=== PATIENT | female | born 1990 | race Caucasian/White ===

== ENCOUNTER 2022-11-24 09:11 | Outpatient (OUT) | payer OTHER, SELFPAY ==
[2022-11-24 10:02] LABS: HCG Quantitative <1 mIU/mL
== END 2022-11-24 09:12 | disposition home or self-care (01) ==
LOC: LAB 09:13
PROVIDERS: Visit Provider Obstetrics & Gynecology
DX: N92.6 Irregular menstruation, unspecified (principal)
CPT/HCPCS: 36415; 84702

== ENCOUNTER 2022-12-04 09:56 | Outpatient (OUT) | payer OTHER, SELFPAY ==
--- NOTE | 2022-12-04 10:10 | US_ITS ---
[address] [address] Patient Name: REBECCA BARRERA MRN: [id number] date: 1990 Sex: F Assigned Patient Location: US Current Patient Location: Accession/Order Number: [id number] Exam Date: 12/04/2022 10:12 Report Date: 12/05/2022 00:33 At the request of: DALLAS HERRERA Procedure: US pelvis w/ transvaginal EXAMINATION: US pelvis w/ transvaginal HISTORY: Infertility Counseling Z31.69 COMPARISON: Ultrasound pelvis 07/24/2018 TECHNIQUE: Transabdominal and/or transvaginal sonographic examination was performed as indicated by examination type. FINDINGS: UTERUS: Normal size and appearance. Uterus size: 7.7 x 3.6 x 4.9 cm ENDOMETRIUM: Normal homogeneous appearance. Endometrial thickness: 6 mm RIGHT OVARY: Contains several cysts versus prominent follicles, largest is 1.9 cm. Duplex Doppler demonstrates normal waveform and flow; resistive index 0.7. Ovary size: 5.0 x 2.9 x 4.5 cm LEFT OVARY: Contains several small follicles. Duplex Doppler demonstrates normal waveform and flow; resistive index 0.5. Ovary size: 4.0 x 2.8 x 3.2 cm CUL-DE-SAC: Unremarkable. No significant free fluid. BLADDER: Unremarkable. OTHER: None. US/US pelvis w/ transvaginal IMPRESSION: 1. Bilateral ovarian follicles. 2. Normal appearance of uterus, endometrium, and ovaries. Electronically authenticated by: HUA HAHN Date: 12/05/2022 00:33
== END 2022-12-04 09:57 | disposition home or self-care (01) ==
LOC: US 09:56
PROVIDERS: Visit Provider Obstetrics & Gynecology
DX: N83.01 Follicular cyst of right ovary (principal); Z31.69 Encounter for other general counseling and advice on procreation; N83.02 Follicular cyst of left ovary
CPT/HCPCS: 76830; 76856

== ENCOUNTER 2022-12-12 06:57 | Outpatient (RCR) | payer OTHER, SELFPAY ==
[2022-12-13 04:11] LABS: Progesterone 0.9 ng/mL (.)
[2022-12-16 04:07] LABS: Progesterone 0.1 ng/mL (.)
== END 2023-01-04 16:56 | disposition home or self-care (01) ==
LOC: LAB 06:57
PROVIDERS: Visit Provider Obstetrics & Gynecology
DX: Z31.69 Encounter for other general counseling and advice on procreation (principal)
CPT/HCPCS: 36415; 84144

== ENCOUNTER 2023-03-03 09:04 | Outpatient (OUT) | payer OTHER, SELFPAY ==
--- OUTSIDE RECORDS SUMMARY | 2023-03-03 09:08 | XMS_ITS | CCD ---
Author Name Unknown Address [address] [place] [address] Organization [facility] Care Team Providers Care Inside Outside Sales Representative Name Role Phone HARVINDER COLLINS Unavailable Unavailable HARVINDER COLLINS Unavailable Unavailable MISC, DOCTOR Unavailable Unavailable HARVINDER COLLINS Unavailable Unavailable SHARON, DR HAYNES Attending Unavailable BUTTERFIELD, DR EDIE Francois Primary Care Unavailable CANTON, DR KULWINDER Lin Consulting Unavailable SHARON, DR HAYNES Admitting Unavailable SHARON, DR HAYNES Consulting Unavailable KARASIK, DR ACUNA Admitting Unavailable BUTTERFIELD, DR EDIE Francois Primary Care Unavailable KARCHARISMAK, DR ACUNA Attending Unavailable SHARON, DR HAYNES Attending Unavailable BUTTERFIELD, DR EDIE Francois Primary Care Unavailable SHARON, DR HAYNES Admitting Unavailable SHARON, DR HAYNES Attending Unavailable BUTTERFIELD, DR EDIE Francois Primary Care Unavailable SHARON, DR HAYNES Admitting Unavailable SHARON, DR HAYNES Attending Unavailable BUTTERFIELD, DR EDIE Francois Primary Care Unavailable SHARON, DR HAYNES Admitting Unavailable SHARON, DR HAYNES Consulting Unavailable SHARON, DR HAYNES Attending Unavailable BUTTERFIELD, DR EDIE Francois Primary Care Unavailable CANTON, DR KULWINDER Lin Consulting Unavailable SHARON, DR HAYNES Admitting Unavailable SHARON, DR HAYNES Consulting Unavailable SHARON, DR HAYNES Consulting Unavailable SHARON, DR HAYNES Attending Unavailable SHARON, DR HAYNES Admitting Unavailable SCOUT, DR EDIE Francois Primary Care Unavailable SHARON, DR HAYNES Attending Unavailable SHARON, DR HAYNES Admitting Unavailable BUTTERFIELD, DR EDIE Francois Primary Care Unavailable CANTON, DR KULWINDER Lin Consulting Unavailable SHARON, DR HAYNES Consulting Unavailable SHARON, DR HAYNES Attending Unavailable BUTTERFIELD, DR EDIE Francois Primary Care Unavailable SHARON, DR HAYNES Admitting Unavailable SHARON, DR HAYNES Consulting Unavailable SHARON, DR HAYNES Attending Unavailable SHARON, DR HAYNES Admitting Unavailable BUTTERFIELD, EDIE E Primary Care Unavailable SHARON, DR HAYNES Consulting Unavailable SHARON, DR HAYNES Procedure Practitioner UnavailMARCK Michele Consulting Unavailable SHARON, DR HAYNES Attending Unavailable SHARON, DR HAYNES Admitting Unavailable DR EDIE BUTTERFIELD Primary Care Unavailable WEST, DR KULWINDER Lin Consulting Unavailable SHARON, DR HAYNES Consulting Unavailable Edie Butterfield Unavailable Medications Current Medications Medication Drug Class(es) Dates Sig (Normalized) Sig (Original) aspirin 81 mg delayed release oral tablet (2 sources) Platelet Aggregation Inhibitor, Nonsteroidal Anti-inflammatory Drug take 1 tablet by mouth every twenty-four hours Aspirin 81 MG 1 tablet Orally Once a day Active azithromycin 250 mg oral tablet (2 sources) Macrolide Antimicrobial Azithromycin 250 MG as directed Orally Active 24 hr metFORMIN hydrochloride 500 mg extended release oral tablet (2 sources) Biguanide take 1 tablet by mouth every twenty-four hours metFORMIN HCl ER 500 MG 1 tablet with evening meal Orally Once a day Active (2 sources) Active 24 hr venlafaxine 37.5 mg extended release oral capsule (2 sources) Serotonin and Norepinephrine Reuptake Inhibitor take 1 capsule by mouth every twenty-four hours Effexor XR 37.5 MG 1 capsule with food Orally Once a day for 90 days Active Completed/Discontinued Medications Medication Drug Class(es) Dates Sig (Normalized) Sig (Original) fexofenadine (2 sources) Histamine-1 Receptor Antagonist Radha Not-Taking fluticasone (2 sources) Corticosteroid Flonase Not-Taki ng letrozole 2.5 mg oral tablet (2 sources) Aromatase Inhibitor Letrozole 2.5 MG PLEASE SEE ATTACHED FOR DETAILED DIRECTIONS Oral for 90 Not-Taking medroxyPROGESTERone acetate 10 mg oral tablet (2 sources) Progestin medroxyPROGESTER one Acetate 10 MG TAKE 1 TABLET BY MOUTH DAILY UP TO 10 DAYS UNTIL THE START OF MONTHLY CYCLE Oral for 10 Not-Taking omeprazole 40 mg delayed release oral capsule (2 sources) Proton Pump Inhibitor take 1 capsule by mouth once daily Omeprazole 40 MG 1 capsule 30 minutes before morning meal Orally Once a day Not-Taking sertraline 50 mg oral tablet (2 sources) Serotonin Reuptake Inhibitor take 1 tablet by mouth once daily Sertraline HCl 50 MG 1 tablet Orally Once a day Not-Taking Problems Active Problems Problem Classification Problem Date Documented Da te Episodic/Chronic Chronic obstructive pulmonary disease and bronchiectasis (2 sources) Bronchitis; Translations: [Bronchitis, not specified as acute or chronic] Episodic Esophageal disorders (2 sources) Gastroesophageal reflux disease; Translations: [Gastro-esophageal reflux disease without esophagitis] Chronic Immunizations and screening for infectious disease (1 source) Encounter for screening for human papillomavirus (HPV); Translations: [ENC SCREENING HUMAN PAPILLOMAVIRUS] Onset: 3 Episodic Menstrual disorders (2 sources) Amenorrhea; Translations: [Secondary amenorrhea] Chronic Mood disorders (2 sources) Depressive disorder; Translations: [Depression] Chronic Other endocrine disorders (1 source) Polycystic ovarian syndrome; Translations: [POLYCYSTIC OVARIAN SYNDROME] Onset: 2 Chronic Other endocrine disorders (2 sources) Polycystic ovaries; Translations: [Polycystic ovarian syndrome] Chronic Other gastrointestinal disorders (2 sources) Irritable bowel syndrome with diarrhea; Translations: [Irritable bowel syndrome with diarrhea] Chronic Other non-traumatic joint disorders (1 source) Pain in right wrist Episodic Other non-traumatic joint disorders (1 source) Pain in left wrist Episodic Other nutritional; endocrine; and metabolic disorders (2 sources) Body mass index 40+ - severely obese; Translations: [Body mass index (BMI) 40.0-44.9, adult] Chronic Unclassified (20 sources) Encounter for screening for malignant neoplasm of cervix; Translations: [Encounter for screening for Streptococcus B] Onset: 8 Episodic Unclassified (1 source) PERSONAL HISTORY OF COVID-19; Translations: [PERSONAL HISTORY OF COVID-19] Onset: 2 Unclassified (1 source) CONTACT W/AND (SUSP) EXPOS COVID-19; Translations: [CONTACT W/AND (SUSP) EXPOS COVID-19] Onset: 2 Past or Other Problems Problem Classification Problem Date Documented Da te Episodic/Chronic Diabetes mellitus without complication (4 sources) Other abnormal glucose; Translations: [OTHER ABNORMAL GLUCOSE] Onset: 05-28-2021 Episodic Hemorrhage during ; abruptio placenta; placenta previa (1 source) Low lying placenta NOS or without hemorrhage, second trimester; Translations: [LOW LYING PL NOS W/O HEMORR 2ND TRI] Onset: 05-10-2021 Episodic Other complications of ; puerperium affecting management of mother (1 source) Failed medical induction of labor; Translations: [FAILED MEDICAL INDUCTION OF LABOR] Onset: 09-07-2021 Episodic Other complications of ; puerperium affecting management of mother (1 source) Endocrine, nutritional and metabolic diseases complicating childbirth; Translations: [ENDOCRN NUTR MET DZ COMP CHILDBIRTH] Onset: 09-07-2021 Episodic Other complications of (5 sources) Maternal care for excessive growth, third trimester, not applicable or unspecified; Translations: [MAT CARE EXCSS FTL GRTH 3RD TRI UNS] Onset: 07-30-2021 Episodic Other and delivery including normal (9 sources) Encounter for care and examination of lactating mother; Translations: [Encounter for routine follow-up] Onset: 08-30-2021 Episodic Prolonged (4 sources) Post-term ; Translations: [POST-TERM ] Onset: 08-21-2021 Episodic Residual codes; unclassified (1 source) 40 weeks gestation of ; Translations: [40 WEEKS GESTATION OF ] Onset: 09-07-2021 Episodic Residual codes; unclassified (1 source) 37 weeks gestation of ; Translations: [37 WEEKS GESTATION OF ] Onset: 08-03-2021 Episodic Residual codes; unclassified (1 source) 30 weeks gestation of ; Translations: [30 WEEKS GESTATION OF ] Onset: 06-10-2021 Episodic Residual codes; unclassified (1 source) 25 weeks gestation of ; Translations: [25 WEEKS GESTATION OF ] Onset: 05-10-2021 Episodic Results Test Name Value Interpretation Reference Range Facility PAP ACOG PANEL 2: 30 to 65on 03-03-2022 . . [facility] [place] [facility] Comment on above: Result Comment: Perf ormed at: WB Performed By: #### [id number] #### [facility] [address] [address] [address] Roc Coulter Age Gdln ACOG Testing [facility] [place] [facility] Comment on above: Performed By: #### [id number] #### [facility] [address] [address] [address] Roc Coulter DIAGNOSIS: Comment [facility] [place] [facility] Comment on above: Result Comment: NEGA TIVE FOR INTRAEPITHELIAL LESION OR MALIGNANCY. Performed at: WB Performed By: #### [id number] #### [facility] [address] [place] [address] Dr. Roc Coulter HPV Aptima Negative Normal Negative [facility] Comment on above: Result Comment: This nucleic acid amplification test detects fourteen high-risk HPV types (16,18,31,33,35,39,45,51,52,56,58,59,66,68) without differentiation. Performed at: =G Performed By: #### [id number] #### [facility] [address] [place] [address] Dr. Roc Coulter HPV Genotype Reflex Comment Normal [facility] Comment on above: Result Comment: Crit eria not met, HPV Genotype not performed. Performed at: WB Performed By: #### [id number] #### [facility] [address] [place] [address] Dr. Roc Coulter Methodology: Comment Normal [facility] Comment on above: Result Comment: This liquid based ThinPrep(R) pap test was screened with the use of an image guided system. Performed at: WB Performed By: #### [id number] #### [facility] [address] [place] [address] Dr. Roc Coulter Note: Comment Normal [facility] Comment on above: Result Comment: The Pap smear is a screening test designed to aid in the detection of premalignant and malignant conditions of the uterine cervix. It is not a diagnostic procedure and should not be used as the sole means of detecting cervical cancer. Both false-positive and false-negative reports do occur. . Performed at: WB Performed By: #### [id number] #### [facility] [address] [place] [address] Dr. Roc Coulter Performed by: Comment Normal [facility] Comment on above: Result Comment: Lina Quach, Performance Improvement Specialist (ASCP) Performed at: WB Performed By: #### [id number] #### [facility] [address] [place] [address] Dr. Roc Coulter Specimen adequacy: Comment Normal [facility] Comment on above: Result Comment: Sati sfactory for evaluation. Endocervical and/or squamous metaplastic cells (endocervical component) are present. Performed at: WB Performed By: #### [id number] #### [facility] [address] [place] [address] Dr. Roc Coulter CBC AUTO DIFFon 08-24-2021 BASO # 0.0 103/ul Normal 0.0-0.1 [facility] Comment on above: Performed By: #### C BC #### [facility] [address] [place] [address] Dr. Roc Coulter Basophils/100 WBC (Bld) 0.3 % Normal 0.2-2.0 [facility] Comment on above: Performed By: #### C BC #### [facility] [address] [place] [address] Dr. Roc Coulter EO # 0.1 103/ul Normal 0.0-0.7 [facility] Comment on above: Performed By: #### C BC #### [facility] [address] [place] [address] Dr. Roc Coulter Eosinophils/100 WBC (Bld) 1.0 % Normal 0.9-7.0 [facility] Comment on above: Performed By: #### C BC #### [facility] [address] [place] [address] Dr. Roc Coulter Erythrocyte distribution width (RBC) [Ratio] 16.6 % Critically high 11.0-15.0 [facility] Comment on above: Performed By: #### C BC #### [facility] [address] [place] [address] Dr. Roc Coulter Hematocrit (Bld) [Volume fraction] 30.2 % Critically low 36.0-48.0 [facility] Comment on above: Performed By: #### C BC #### [facility] [address] [place] [address] Dr. Roc Coulter Hemoglobin (Bld) [Mass/Vol] 9.6 g/dL Critically low 12.0-16.0 [facility] Comment on above: Performed By: #### C BC #### [facility] [address] [place] [address] Dr. Roc Coulter IG # 0.10 10e3/ul Critically high 0.00-0.03 [facility] Comment on above: Performed By: #### C BC #### [facility] [address] [place] [address] Dr. Roc Coulter IG % 0.7 % Critically high 0.0-0.5 [facility] Comment on above: Performed By: #### C BC #### [facility] [address] [place] [address] Dr. Roc Coulter LYMPH # 2.5 103/ul Normal 1.2-3.8 [facility] Comment on above: Performed By: #### C BC #### [facility] [address] [place] [address] Dr. Roc Coulter Lymphocytes/100 WBC (Bld) 18.6 % Critically low 20.5-60.0 [facility] Comment on above: Performed By: #### C BC #### [facility] [address] [place] [address] Dr. Roc oCulter MANUAL DIFF REQ NO Normal [facility] Comment on above: Performed By: #### C BC #### [facility] [address] [place] [address] Dr. Roc Coulter MCH (RBC) [Entitic mass] 27.9 pg Normal 26.7-34.0 [facility] Comment on above: Performed By: #### C BC #### [facility] [address] [place] [address] Dr. Roc Coulter MCHC (RBC) [Mass/Vol] 31.8 g/dL Normal 29.9-35.2 [facility] Comment on above: Performed By: #### C BC #### [facility] [address] [place] [address] Dr. Roc Coulter MCV (RBC) [Entitic vol] 87.8 fL Normal 81.0-99.0 [facility] Comment on above: Performed By: #### C BC #### [facility] [address] [place] [address] Dr. Roc Coulter MONO # 0.9 103/ul Critically high 0.3-0.8 [facility] Comment on above: Performed By: #### C BC #### [facility] [address] [address] [address] Roc Coulter Monocytes/100 WBC (Bld) 6.7 % Normal 1.7-12.0 [facility] Comment on above: Performed By: #### C BC #### [facility] [address] [address] [address] Roc Coulter NEUT # 9.8 103/ul Critically high 1.4-6.5 [facility] Comment on above: Performed By: #### C BC #### [facility] [address] [place] [address] Dr. Roc Coulter Neutrophils/100 WBC (Bld) 72.7 % Normal 43.0-75.0 [facility] Comment on above: Performed By: #### C BC #### [facility] [address] [place] [address] Dr. Roc Coulter Platelet mean volume (Bld) [Entitic vol] 10.4 fL Normal 9.5-13.5 [facility] Comment on above: Performed By: #### C BC #### [facility] [address] [place] [address] Dr. Roc Coulter PLT 228 103/ul Normal 150-450 [facility] Comment on above: Performed By: #### C BC #### [facility] [address] [place] [address] Dr. Roc Coulter RBC 3.44 106/ul Critically low 4.20-5.40 [facility] Comment on above: Performed By: #### C BC #### [facility] [address] [place] [address] Dr. Roc Coulter WBC 13.4 103/ul Critically high 4.0-11.0 [facility] Comment on above: Performed By: #### C BC #### [facility] [address] [place] [address] Dr. Roc Coulter CBC AUTO DIFFon 08-21-2021 BASO # 0.0 103/ul Normal 0.0-0.1 [facility] Comment on above: Performed By: #### C BC ####[facility] [address] [address]Dr. Roc Coulter Basophils/100 WBC (Bld) 0.5 % Normal 0.2-2.0 [facility] Comment on above: Performed By: #### C BC ####[facility] [address] [address]Dr. Roc Coulter EO # 0.1 103/ul Normal 0.0-0.7 [facility] Comment on above: Performed By: #### C BC ####[facility] [address] [place], [place] [address]Dr. Roc Yfn Eosinophils/100 WBC (Bld) 1.1 % Normal 0.9-7.0 [facility] Comment on above: Performed By: #### C BC ####[facility] [address] [place], [place] [address]Dr. Roc Yfn Erythrocyte distribution width (RBC) [Ratio] 16.1 % Critically high 11.0-15.0 [facility] Comment on above: Performed By: #### C BC ####[facility] [address] [place], [place] [address]Dr. Roc Coulter Hematocrit (Bld) [Volume fraction] 36.0 % Normal 36.0-48.0 [facility] Comment on above: Performed By: #### C BC ####[facility] [address] [place], [place] [address]Dr. Roc Coulter Hemoglobin (Bld) [Mass/Vol] 11.7 g/dL Critically low 12.0-16.0 [facility] Comment on above: Performed By: #### C BC ####[facility] [address] [place], [place] [address]Dr. Octaviaflorence Coulter IG # 0.08 10e3/ul Critically high 0.00-0.03 [facility] Comment on above: Performed By: #### C BC ####[facility] [address] [place], [place] [address]Dr. Roc Coulter IG % 0.9 % Critically high 0.0-0.5 [facility] Comment on above: Performed By: #### C BC ####[facility] [address] [address]Dr. Roc Yfn LYMPH # 1.8 103/ul Normal 1.2-3.8 [facility] Comment on above: Performed By: #### C BC ####[facility] [address] [address]Dr. Roc Yfn Lymphocytes/100 WBC (Bld) 20.8 % Normal 20.5-60.0 [facility] Comment on above: Performed By: #### C BC ####[facility] [address] [address]Dr. Octaviaflorence Coulter MANUAL DIFF REQ NO Normal [facility] Comment on above: Performed By: #### C BC ####[facility] [address] [place], [place] [address]Dr. Roc Yfn MCH (RBC) [Entitic mass] 28.0 pg Normal 26.7-34.0 [facility] Comment on above: Performed By: #### C BC ####[facility] [address] [place], [place] [address]Dr. Roc Yfn MCHC (RBC) [Mass/Vol] 32.5 g/dL Normal 29.9-35.2 [facility] Comment on above: Performed By: #### C BC ####[facility] [address] [place], [place] [address]Dr. Roc Coulter MCV (RBC) [Entitic vol] 86.1 fL Normal 81.0-99.0 [facility] Comment on above: Performed By: #### C BC ####[facility] [address] [place], [place] [address]Dr. Roc Coulter MONO # 0.8 103/ul Normal 0.3-0.8 [facility] Comment on above: Performed By: #### C BC ####[facility] [address] [place], [place] [address]Dr. Roc Coulter Monocytes/100 WBC (Bld) 9.6 % Normal 1.7-12.0 [facility] Comment on above: Performed By: #### C BC ####[facility] [address] [address]Dr. Roc Coulter NEUT # 5.9 103/ul Normal 1.4-6.5 [facility] Comment on above: Performed By: #### C BC ####[facility] [address] [id number]. Roc Coulter Neutrophils/100 WBC (Bld) 67.1 % Normal 43.0-75.0 [facility] Comment on above: Performed By: #### C BC ####[facility] [address] [address]Dr. Roc Coulter Platelet mean volume (Bld) [Entitic vol] 10.6 fL Normal 9.5-13.5 [facility] Comment on above: Performed By: #### C BC ####[facility] [address] [id number] Roc Coulter PLT 235 103/ul Normal 150-450 [facility] Comment on above: Performed By: #### C BC ####[facility] [address] [id number]. Roc Coulter RBC 4.18 106/ul Critically low 4.20-5.40 [facility] Comment on above: Performed By: #### C BC ####[facility] [address] [place], [place] [address]Dr. Roc Coulter WBC 8.8 103/ul Normal 4.0-11.0 [facility] Comment on above: Performed By: #### C BC ####[facility] [address] [id number] Roc Coulter Covid-19 PCR ([facility])on 08-05 SARS-CoV-2 (COVID-19) RNA NIMA+probe Ql (Unsp spec) Not detected Normal NOT DETECTED [facility] Comment on above: Result Comment: When diagnostic testing is negative, the possibility of a false negative should be considered in the context of a patient's recent exposures and the presence of clinical signs and symptoms consistent with SARS-CoV-2. This test is not yet approved or cleared by the [place] FDA. When there are no FDA-approved or cleared tests available, and other criteria are met, FDA can make tests available under an emergency access mechanism called an Emergency Use Authorization (EUA). The EUA for this test is supported by the [place] of Health and Human Service's declaration that circumstances exist to justify the emergency use of in vitro diagnostics for the detection and/or diagnosis of the virus that causes COVID-19. This EUA will remain in effect for the duration of the COVID-19 declaration justifying emergency of IVDs, unless it is terminated or revoked by the FDA (after which the test may no longer be used). Performed By: #### C VDTBH #### [facility] [address] [place] [address] Dr. Roc Coulter DRUG SCREEN RAPID (URINE)on 08-21-2021 AMP Negative Normal NEGATIVE [facility] Comment on above: Performed By: #### D RUGRPD #### [facility] [address] [place] [address] Dr. Roc Coulter BAR Negative Normal NEGATIVE [facility] Comment on above: Performed By: #### D RUGRPD #### [facility] [address] [place] [address] Dr. Roc Coulter BUP Negative Normal NEGATIVE [facility] Comment on above: Performed By: #### D RUGRPD #### [facility] [address] [place] [address] Dr. Roc Coulter BZO Negative Normal NEGATIVE [facility] Comment on above: Performed By: #### D RUGRPD #### [facility] [address] [place] [address] Dr. Roc Coulter SHAYY Negative Normal NEGATIVE [facility] Comment on above: Performed By: #### D RUGRPD #### [facility] [address] [place] [address] Dr. Roc Coulter CUT-OFFS SEE BELOW Normal [facility] Comment on above: Result Comment: AMP (Amphetamine): 500ng/mL, BAR (Barbituates): 200 ng/mL, BZO (Benzodiazepines): 150 ng/mL, BUP (Buprenorphine): 10 ng/mL, SHAYY (Cocaine): 150 ng/mL, mAMP (Methamphetamine): 500 ng/mL, MTD (Methadone): 200 ng/mL, OPI (Opiates): 100 ng/mL, OXY (Oxycodone): 100 ng/mL, PCP (Phencyclidine): 25 ng/mL, PPX (Propoxyphene): 300 ng/mL, THC (Cannabinoids): 50 ng/mL, TCA (Trycyclic Antidepressants): 300 ng/mL Performed By: #### D RUGRPD #### [facility] [address] [place] [address] Dr. Roc Coulter DRUG CUT HEADER DRUG CLASS TEST SYST EM CUT-OFF CONCENTRATIONS ARE FOLLOWS: Normal [facility] Comment on above: Performed By: #### D RUGRPD #### [facility] [address] [place] [address] Dr. Roc Coulter mAMP Negative Normal NEGATIVE [facility] Comment on above: Performed By: #### D RUGRPD #### [facility] [address] [place] [address] Dr. Roc Coulter MTD Negative Normal NEGATIVE [facility] Comment on above: Performed By: #### D RUGRPD #### [facility] [address] [place] [address] Dr. Roc Coulter OPI Negative Normal NEGATIVE [facility] Comment on above: Performed By: #### D RUGRPD #### [facility] [address] [place] [address] Dr. Roc Coulter OXY Negative Normal NEGATIVE [facility] Comment on above: Performed By: #### D RUGRPD #### [facility] [address] [place] [address] Dr. Roc Coulter PCP Negative Normal NEGATIVE [facility] Comment on above: Performed By: #### D RUGRPD #### [facility] [address] [place] [address] Dr. Roc Cuolter PPX Negative Normal NEGATIVE [facility] Comment on above: Performed By: #### D RUGRPD #### [facility] [address] [place], [place] [address] Dr. Roc Coulter TCA Negative Normal NEGATIVE [facility] Comment on above: Performed By: #### D RUGRPD #### [facility] [address] [place], [place] [address] Dr. Roc Coulter THC Negative Normal NEGATIVE [facility] Comment on above: Performed By: #### D RUGRPD #### [facility] [address] [place], [place] [address] Dr. Roc Coulter TYPE AND SCREENon 08-21-2021 TYPE AND SCREEN Negative Normal [facility] Comment on above: Performed By: #### T NS ####[facility] [address] [place], [place] [address]UdDr. Roc Coulter US PREG BIOPHY W NON STRESSo n 08-19-2021 US PREG BIOPHY W NON STRESS EXAMINATION: US PREG BIOPHY W NON STRESS HISTORY: Post-term COMPARISON: No relevant comparison available. TECHNIQUE: Ultrasound biophysical profile was performed in the radiology department. non-reactive stress testing was performed by nursing staff in the birthing center. FINDINGS: BREATHING MOVEMENTS: 2.0 GROSS BODY MOVEMENTS: 2.0 TONE: 2.0 QUALITATIVE AMNIOTIC FLUID VOLUME: 2.0 PRESENTATION: Cephalic HEART RATE: 164.6 bpm H.B./min AMNIOTIC FLUID VOLUME: 12.5 cm cm GESTATIONAL AGE: 40 weeks 1 days CONCLUSION: Total biophysical profile score: 8.0 Electronically authenticated by: KULWINDER VENEGAS Date: 2021-08-19 16:43 Normal [facility] US PREG GROWTHon 08-01-2021 US PREG GROWTH EXAMINATION: US PREG GROWTH HISTORY: Large for gestation age fetus COMPARISON: No relevant comparison available. FINDINGS: Heart Rate: 148.4 bpm Amniotic Fluid Volume: 20.6 cm Number: 1.0 Position: Cephalic presentation, longitudinal lie Maximum Vertical Pocket: 6.3 cm cm 5.5 cm cm 3.3 cm cm 5.5 cm cm BIOMETRY: BPD: 9.3 cm cm; 37 weeks 4 days; 76% HC: 33.5 cmcm; 38 weeks 3 days, 53% AC: 35.1 cm cm; 39 weeks 0 days, 96% FL: 6.9 cm cm; 35 weeks 5 days; 13.0 % % EFW: 3379.7 grams, 7 lbs. 7 oz., 77% FL/AC: 19.8 FL/BPD: 75.1 HC/AC: 1.0 GESTATIONAL AGE: Age by EDC: 37 weeks 2 days LAOL by EDC: 08/18/2021 Age by US: 37 weeks 5 days LALO by US: 08/15/2021 IMPRESSION: Abdominal circumference at the 96th percentile, otherwise normal interval growth Electronically authenticated by: KULWINDER VENEGAS Date: 2021-08-01 07:24 Normal [facility] GROUP B STREP CULTUREon 07-07 S. agalactiae Ag Ql (Unsp spec) Culture Observations: NEGATIVE FOR GROUP B STREPTOCOCCUS. Normal [facility] Comment on above: Performed By: #### G BSCX ####[facility] [address] [place], [place] [address]PjWendy Coulter US PREG GROWTHon 06-09-2021 US PREG GROWTH EXAMINATION: US PREG GROWTH HISTORY: Excessive growth affecting management of mother COMPARISON: No relevant comparison available. FINDINGS: Heart Rate: 153.0 bpm Amniotic Fluid Volume: 19.1 cm Number: 1.0 Position: Cephalic presentation, longitudinal lie Maximum Vertical Pocket: 4.8 cm cm 5.0 cm cm 4.6 cm cm 4.8 cm cm BIOMETRY: BPD: 7.5 cm cm; 30 weeks 1 days; 40% HC: 27.7 cmcm; 30 weeks 2 days, 22% AC: 25.4 cm cm; 29 weeks 4 days, 32% FL: 5.8 cm cm; 30 weeks 3 days; 46.0 % % EFW: 1483.1 grams, 3 lbs. 4 oz., 35% FL/AC: 22.9 FL/BPD: 77.5 HC/AC: 1.1 GESTATIONAL AGE: Age by EDC: 30 weeks 0 days LALO by EDC: 08/18/2021 Age by US: 30 weeks 1 day LALO by US: 08/17/2021 IMPRESSION: Normal interval growth Electronically authenticated by: KULWINDER VENEGAS Date: 2021-06-09 16:45 Normal [facility] US PREG INCOMPLETE ANATOMYon 06-09-2021 US PREG INCOMPLETE ANATOMY EXAMINATION: US PREG INCOMPLETE ANATOMY HISTORY: screening COMPARISON: 05/06/2021 FINDINGS: Normal visualized anatomy: RVOT, LVOT, kidneys, spine, orbits Amniotic fluid index: 19.1 cm, normal Heart rate: 153 bpm IMPRESSION: Normal observed anatomy Electronically authenticated by: KULWINDER VENEGAS Date: 2021-06-09 16:46 Normal [facility] GTT 3 HR PREGon 05-28-2021 Glucose [Mass/Vol] 83 mg/dL Normal 74-106 [facility] Comment on above: Performed By: #### G TT3P #### [facility] [address] [place] [address] Dr. Roc Coulter Glucose [Mass/Vol] 176 mg/dL Normal [facility] Comment on above: Performed By: #### G TT3P #### [facility] [address] [place] [address] Dr. Roc Coulter Glucose [Mass/Vol] 125 mg/dL Normal [facility] Comment on above: Performed By: #### G TT3P #### [facility] [address] [place] [address] Dr. Roc Coulter Glucose [Mass/Vol] 97 mg/dL Normal [facility] Comment on above: Performed By: #### G TT3P #### [facility] [address] [place] [address] Dr. Roc Coulter GLUCOSE - 1HRon 05-06-2021 Glucose [Mass/Vol] 173 mg/dL Critically high 74-106 [facility] Comment on above: Performed By: #### G LU1HR #### [facility] [address] [place] [address] Dr. Roc Coulter HEMOGRAM AND PLATELon 2021 Hematocrit (Bld) [Volume fraction] 34.5 % Critically low 36.0-48.0 [facility] Comment on above: Performed By: #### H H #### [facility] [address] [place] [address] Dr. Roc Coulter Hemoglobin (Bld) [Mass/Vol] 10.8 g/dL Critically low 12.0-16.0 [facility] Comment on above: Performed By: #### H H #### [facility] [address] [place] [address] [address] Roc Coulter MCH (RBC) [Entitic mass] 27.9 pg Normal 26.7-34.0 [facility] Comment on above: Performed By: #### H H #### [facility] [address] [place] [address] [address] Roc Coulter MCHC (RBC) [Mass/Vol] 31.3 g/dL Normal 29.9-35.2 [facility] Comment on above: Performed By: #### H H #### [facility] [address] [place] [address] [address] Roc Coulter MCV (RBC) [Entitic vol] 89.1 fL Normal 81.0-99.0 [facility] Comment on above: Performed By: #### H H #### [facility] [address] [place] [address] Dr. Roc Coulter PLT 298 103/ul Normal 150-450 [facility] Comment on above: Performed By: #### H H #### [facility] [address] [place] [address] [address] Roc Coulter RBC 3.87 106/ul Critically low 4.20-5.40 [facility] Comment on above: Performed By: #### H H #### [facility] [address] [place] [address] [address] Roc Coulter WBC 8.1 103/ul Normal 4.0-11.0 [facility] Comment on above: Performed By: #### H H #### [facility] [address] [place] [address] Dr. Roc Coulter US PREG ANATOMY SINGLEon US PREG ANATOMY SINGLE EXAMINATION: US PREG ANATOMY SINGLE HISTORY: anatomy study COMPARISON: No relevant comparison available. TECHNIQUE: Transabdominal sonographic examination was performed for obstetrical and evaluation. FINDINGS: Number: 1 Heart Rate: 163.6 bpm H.B. /min Amniotic Fluid Volume: Subjectively low Placental Location: Anterior, grade 1. Placental edge 1.7 cm from the cervical os. Areas of anechoic echogenicity, placental lakes favored. Cervix Length: 5.9 cm, closed Normal structures: Cerebellum. Choroid plexus. Cisterna magna. Lateral cerebral ventricles. Midline falx. Hard palate. 4-chamber heart. Stomach. Bladder. Umbilical cord insertion into abdomen. 3 vessel cord. Right upper extremity. Left upper extremity. Right lower extremity. Left lower extremity. Suboptimally seen: Orbits, RVOT, LVOT, kidneys, spine. Abnormalities/Other: None BIOMETRY: BPD: 6.1 cm 24 weeks 6 days , 30% HC: 23.2 cm 25 weeks 2 days, 32% AC: 21.4 cm 26 weeks 0 days, 67% FL: 4.5 cm 24 weeks 5 days, 26% EFW:805.5 grams; 1 lb. 12 oz., 51% FL/AC: 20.9 FL/BPD: 73.4 HC/AC: 1.1 GESTATIONAL AGE: Age by EDC: 25 weeks 1 days LALO by EDC: 08/18/2021 Age by current US: 25 weeks 2 days LALO by current US: 08/17/2021 IMPRESSION: Limited visualization is detailed above Subjectively low amniotic fluid volume, consider amniotic fluid index follow-up for quantitative measurements Low lying placenta *Reference: [employer] Practice Guideline for the performance of Obstetric Ultrasound Examinations, November 05, 2006. Electronically authenticated by: KULWINDER VENEGAS Date: 2021-05-06 16:06 Normal [facility] Pap, GC/Chlam rfx HPV HRon 0 02-11-2021 PAP Chlamydia NIMA Negative Normal Negative [facility] Comment on above: Order Comment: Reaso n for Exam Cervical cancer screening;Encntr screen for infections w sex Comment cx/ecc, - run gc/chlam on pap Specimen Comment: [id number] Performed By: #### P ILLAR LIPID, PILLAR CMP, PILLAR CBC, PILLAR TSH #### [facility] [address] PAP Gonococcus Negative Normal Negative [facility] Comment on above: Order Comment: Reaso n for Exam Cervical cancer screening;Encntr screen for infections w sex Comment cx/ecc, - run gc/chlam on pap Specimen Comment: [id number] Result Comment: Perf ormed at: [facility] [address], [place] [id number] Acid Purifier: Anaid Hercules MD, Phone: [phone] Performed at: =[facility] [address] [facility], [place] [id number] Acid Purifier: Anaid Hercules MD, Phone: [phone] PERFORMED BY: [facility] [address] [place] [address] PATHOLOGIST PRESSURE TESTER OPERATOR KELLY WIGGINS M.D. Performed By: #### P ILLAR LIPID, PILLAR CMP, PILLAR CBC, PILLAR TSH #### [facility] [address] Pap Image Guided Note Normal . [facility] Comment on above: Order Comment: Reaso n for Exam Cervical cancer screening;Encntr screen for infections w sex Comment cx/ecc, - run gc/chlam on pap Specimen Comment: [id number] Result Comment: TEST S RESULT FLAG UNITS REF RANGE LAB Clinician Provided Cytology Information No. of containers..01 ThinPrep Vial DIAGNOSIS: 01 NEGATIVE FOR INTRAEPITHELIAL LESION OR MALIGNANCY. Specimen adequacy: 01 Satisfactory for evaluation. Endocervical and/or squamous metaplastic cells (endocervical component) are present. Performed by: 01 Ej Blunt, Performance Improvement Specialist (ASCP) . 01 Note: Note 01 The Pap smear is a screening test designed to aid in the detection of premalignant and malignant conditions of the uterine cervix. It is not a diagnostic procedure and should not be used as the sole means of detecting cervical cancer. Both false-positive and false-negative reports do occur. Test Methodology: Note 01 This liquid based ThinPrep(R) pap test was screened with the use of an image guided system. . 01 The HPV DNA reflex criteria were not met with this specimen result therefore, no HPV testing was performed. FLAG LEGEND: L-Low Normal,H-High Normal,LL-Alert Low,HH-Alert High <-Panic Low,>-Panic High,A-Abnormal,AA-Critical Abnormal Performed at: 01 WB [facility] [address] [place] [address] Anaid Hercules MD, Performed By: #### P ILLAR LIPID, PILLAR CMP, PILLAR CBC, PILLAR TSH #### [address] Complete Blood Count Auto Di ffon 01-06-2021 Basophils (Bld) [#/Vol] 0.1 10*3/uL Normal 0.0-0.2 [facility] Comment on above: Order Comment: Reaso n for Exam Encounter for supervision of normal first , first t Result Comment: PERF ORMED BY: [place] [address] PATHOLOGIST PRESSURE TESTER OPERATOR KELLY WIGGINS M.D. Performed By: #### H IV SCREEN, RPR W RFX, PROG, HBSAG, RUBELLA IGG #### [facility] , #### CUU, CBC #### [place] [address] [place] Basophils/100 WBC (Bld) 0.8 % Normal . [facility] Comment on above: Order Comment: Reaso n for Exam Encounter for supervision of normal first , first t Performed By: #### H IV SCREEN, RPR W RFX, PROG, HBSAG, RUBELLA IGG #### [facility] , #### CUU, CBC #### [facility] [address] [place] [address] [place] Eosinophils (Bld) [#/Vol] 0.2 10*3/uL Normal 0.0-0.45 [facility] Comment on above: Order Comment: Reaso n for Exam Encounter for supervision of normal first , first t Performed By: #### H IV SCREEN, RPR W RFX, PROG, HBSAG, RUBELLA IGG #### [facility] , #### CUU, CBC #### [place] [address] [place] Eosinophils/100 WBC (Bld) 1.7 % Normal . [facility] Comment on above: Order Comment: Reaso n for Exam Encounter for supervision of normal first , first t Performed By: #### H IV SCREEN, RPR W RFX, PROG, HBSAG, RUBELLA IGG #### [facility] , #### CUU, CBC #### [address] Erythrocyte distribution width (RBC) [Ratio] 14.1 % Normal 11.9-15.3 [facility] Comment on above: Order Comment: Reaso n for Exam Encounter for supervision of normal first , first t Performed By: #### H IV SCREEN, RPR W RFX, PROG, HBSAG, RUBELLA IGG #### [facility] , #### CUU, CBC #### [address] Hematocrit (Bld) [Volume fraction] 39.3 % Normal 34.0-46.4 [facility] Comment on above: Order Comment: Reaso n for Exam Encounter for supervision of normal first , first t Performed By: #### H IV SCREEN, RPR W RFX, PROG, HBSAG, RUBELLA IGG #### [facility] , #### CUU, CBC #### [facility] [address] [place] [address] Hemoglobin (Bld) [Mass/Vol] 13.2 g/dL Normal 11.8-15.4 [facility] Comment on above: Order Comment: Reaso n for Exam Encounter for supervision of normal first , first t Performed By: #### H IV SCREEN, RPR W RFX, PROG, HBSAG, RUBELLA IGG #### [facility] , #### CUU, CBC #### [address] Lymphocytes (Bld) [#/Vol] 2.6 10*3/uL Normal 1.00-4.8 [facility] Comment on above: Order Comment: Reaso n for Exam Encounter for supervision of normal first , first t Performed By: #### H IV SCREEN, RPR W RFX, PROG, HBSAG, RUBELLA IGG #### [facility] , #### CUU, CBC #### [address] Lymphocytes/100 WBC (Bld) 26.0 % Normal . [facility] Comment on above: Order Comment: Reaso n for Exam Encounter for supervision of normal first , first t Performed By: #### H IV SCREEN, RPR W RFX, PROG, HBSAG, RUBELLA IGG #### [facility] , #### CUU, CBC #### [address] MCH (RBC) [Entitic mass] 29.2 pg Normal 24.7-34.3 [facility] Comment on above: Order Comment: Reaso n for Exam Encounter for supervision of normal first , first t Performed By: #### H IV SCREEN, RPR W RFX, PROG, HBSAG, RUBELLA IGG #### [facility] , #### CUU, CBC #### [address] MCV (RBC) [Entitic vol] 86.9 fL Normal 80-100 [facility] Comment on above: Order Comment: Reaso n for Exam Encounter for supervision of normal first , first t Performed By: #### H IV SCREEN, RPR W RFX, PROG, HBSAG, RUBELLA IGG #### [facility] , #### CUU, CBC #### [address] Mean Corpuscular HGB Conc 33.6 g/dL Normal 32.0-35.0 [facility] Comment on above: Order Comment: Reaso n for Exam Encounter for supervision of normal first , first t Performed By: #### H IV SCREEN, RPR W RFX, PROG, HBSAG, RUBELLA IGG #### [facility] , #### CUU, CBC #### [address] Monocytes (Bld) [#/Vol] 0.6 10*3/uL Normal 0.0-0.8 [facility] Comment on above: Order Comment: Reaso n for Exam Encounter for supervision of normal first , first t Performed By: #### H IV SCREEN, RPR W RFX, PROG, HBSAG, RUBELLA IGG #### [facility] , #### CUU, CBC #### [address] Monocytes/100 WBC (Bld) 6.0 % Normal . [facility] Comment on above: Order Comment: Reaso n for Exam Encounter for supervision of normal first , first t Performed By: #### H IV SCREEN, RPR W RFX, PROG, HBSAG, RUBELLA IGG #### [facility] , #### CUU, CBC #### [place] [address] [place] Neutrophils (Bld) [#/Vol] 6.6 10*3/uL Normal 1.8-7.7 [facility] Comment on above: Order Comment: Reaso n for Exam Encounter for supervision of normal first , first t Performed By: #### H IV SCREEN, RPR W RFX, PROG, HBSAG, RUBELLA IGG #### [facility] , #### CUU, CBC #### [place] [id number] [place] Neutrophils/100 WBC (Bld) 65.5 % Normal . [facility] Comment on above: Order Comment: Reaso n for Exam Encounter for supervision of normal first , first t Performed By: #### H IV SCREEN, RPR W RFX, PROG, HBSAG, RUBELLA IGG #### [facility] , #### CUU, CBC #### [facility] [address] [place] [address] [place] Nucleated RBC/100 WBC (Bld) [Ratio] 0.1 % Normal 0-0.5 [facility] Comment on above: Order Comment: Reaso n for Exam Encounter for supervision of normal first , first t Performed By: #### H IV SCREEN, RPR W RFX, PROG, HBSAG, RUBELLA IGG #### [facility] , #### CUU, CBC #### [address] Platelet mean volume (Bld) [Entitic vol] 8.1 fL Normal 6.3-10.7 [facility] Comment on above: Order Comment: Reaso n for Exam Encounter for supervision of normal first , first t Performed By: #### H IV SCREEN, RPR W RFX, PROG, HBSAG, RUBELLA IGG #### [facility] , #### CUU, CBC #### [place] [address] [place] Platelets (Bld) [#/Vol] 325 10*3/uL Normal 150-450 [facility] Comment on above: Order Comment: Reaso n for Exam Encounter for supervision of normal first , first t Performed By: #### H IV SCREEN, RPR W RFX, PROG, HBSAG, RUBELLA IGG #### [facility] , #### CUU, CBC #### [place] [address] [place] RBC (Bld) [#/Vol] 4.52 10*6/uL Normal 3.60-5.00 [facility] Comment on above: Order Comment: Reaso n for Exam Encounter for supervision of normal first , first t Performed By: #### H IV SCREEN, RPR W RFX, PROG, HBSAG, RUBELLA IGG #### [facility] , #### CUU, CBC #### [facility] [address] [place] [address] WBC (Bld) [#/Vol] 10.1 10*3/uL Normal 4.5-11.0 [facility] Comment on above: Order Comment: Reaso n for Exam Encounter for supervision of normal first , first t Performed By: #### H IV SCREEN, RPR W RFX, PROG, HBSAG, RUBELLA IGG #### [facility] , #### CUU, CBC #### [facility] [address] [place] [address] HIV 1/O/2 Antigen/Antibodyon 01-06-2021 HIV Screen 4th Generation Non-Reactive Normal Non Reactive [facility] Comment on above: Order Comment: Reaso n for Exam Encounter for supervision of normal first , first t Performed By: #### P ILLAR LIPID, PILLAR CMP, PILLAR CBC, PILLAR TSH #### [facility] [address] [place] [address] Hepatitis B Surface Antigeno n 01-06-2021 HBsAg Screen Negative Normal Negative [facility] Comment on above: Order Comment: Reaso n for Exam Encounter for supervision of normal first , first t Result Comment: Perf ormed at: CB - [facility] [place] [id number] Acid Purifier: Marcello Velazquez PhD, Phone: [phone] Performed By: #### P ILLAR LIPID, PILLAR CMP, PILLAR CBC, PILLAR TSH #### [facility] [address] [place] [address] Progesteroneon 01-06-2021 Progesterone 27.6 ng/mL Normal . [facility] Comment on above: Order Comment: Reaso n for Exam Encounter for supervision of normal first , first t Result Comment: Foll icular phase 0.1 - 0.9 Luteal phase 1.8 - 23.9 Ovulation phase 0.1 - 12.0 First trimester 11.0 - 44.3 Second trimester 25.4 - 83.3 Third trimester 58.7 - 214.0 Postmenopausal 0.0 - 0.1 Performed at: [address] [id number] Acid Purifier: Marcello Velazquez PhD, Phone: [phone] Performed By: #### H IV SCREEN, RPR W RFX, PROG, HBSAG, RUBELLA IGG #### [facility] , #### CUU, CBC #### [facility] [address] [place] [address] RPR w/rfx to Quant TP Abson 01-06-2021 RPR, Rfx Quant RPR Non-Reactive Normal Non Reactive Fi [facility] Comment on above: Order Comment: Reaso n for Exam Encounter for supervision of normal first , first t Result Comment: Perf ormed at: [facility] [address] [id number] Acid Purifier: Marcello Velazquez PhD, Phone: [phone] PERFORMED BY: [place] [address] PATHOLOGIST PRESSURE TESTER OPERATOR KELLY WIGGINS M.D. Performed By: #### P ILLAR LIPID, PILLAR CMP, PILLAR CBC, PILLAR TSH #### [facility] [address] [place] [address] [place] Rubella IgG Antibodyon 01-06 Rubella IgG Antibody 3.68 Normal Immune >0.99 [facility] Comment on above: Order Comment: Reaso n for Exam Encounter for supervision of normal first , first t Result Comment: Non- immune <0.90 Equivocal 0.90 - 0.99 Immune >0.99 Performed By: #### P ILLAR LIPID, PILLAR CMP, PILLAR CBC, PILLAR TSH #### [address] Type and Screenon 01-06-2021 ABO and Rh group Nom (Bld) Blood group O Rh(D) positive Normal [facility] Comment on above: Order Comment: Reaso n for Exam Encounter for supervision of normal first , first t Result Comment: PERF ORMED BY: [place] [address] PATHOLOGIST PRESSURE TESTER OPERATOR KELLY WIGGINS M.D. Performed By: #### H IV SCREEN, RPR W RFX, PROG, HBSAG, RUBELLA IGG #### [facility] , #### CUU, CBC #### [facility] [address] [place] [address] Urine Cultureon 01-06-2021 Bacteria identified Cx Nom (U) Reason for Exam Encounter for supervision of normal first , first t Reason for Exam: Encounter for supervision of normal first , first t 40,000 colonies/ml mixed bacterial skin contaminants 2 Days PERFORMED BY: [place] [address] PATHOLOGIST PRESSURE TESTER OPERATOR KELLY WIGGINS M.D. Normal [facility] Comment on above: Performed By: #### P ILLAR LIPID, PILLAR CMP, PILLAR CBC, PILLAR TSH #### [address] Complete Blood Count Auto Di ffon 12-14-2020 Basophils (Bld) [#/Vol] 0.1 10*3/uL Normal 0.0-0.2 [facility] Comment on above: Result Comment: PERF ORMED BY: [place] [address] PATHOLOGIST PRESSURE TESTER OPERATOR KELLY WIGGINS M.D. Performed By: #### H CGQNT, CMP, CBC #### [facility] [address] [place] [address] [place] Basophils/100 WBC (Bld) 0.8 % Normal . [facility] Comment on above: Performed By: #### H CGQNT, CMP, CBC #### [facility] [address] [place] [address] Eosinophils (Bld) [#/Vol] 0.2 10*3/uL Normal 0.0-0.45 [facility] Comment on above: Performed By: #### H CGQNT, CMP, CBC #### [address] Eosinophils/100 WBC (Bld) 2.0 % Normal . [facility] Comment on above: Performed By: #### H CGQNT, CMP, CBC #### [address] Erythrocyte distribution width (RBC) [Ratio] 13.4 % Normal 11.9-15.3 [facility] Comment on above: Performed By: #### H CGQNT, CMP, CBC #### [address] Hematocrit (Bld) [Volume fraction] 39.7 % Normal 34.0-46.4 [facility] Comment on above: Performed By: #### H CGQNT, CMP, CBC #### [address] Hemoglobin (Bld) [Mass/Vol] 13.1 g/dL Normal 11.8-15.4 [facility] Comment on above: Performed By: #### H CGQNT, CMP, CBC #### [address] Lymphocytes (Bld) [#/Vol] 2.8 10*3/uL Normal 1.00-4.8 [facility] Comment on above: Performed By: #### H CGQNT, CMP, CBC #### [address] Lymphocytes/100 WBC (Bld) 30.7 % Normal . [facility] Comment on above: Performed By: #### H CGQNT, CMP, CBC #### [address] MCH (RBC) [Entitic mass] 28.8 pg Normal 24.7-34.3 [facility] Comment on above: Performed By: #### H CGQNT, CMP, CBC #### [address] MCV (RBC) [Entitic vol] 87.3 fL Normal 80-100 [facility] Comment on above: Performed By: #### H CGQNT, CMP, CBC #### [facility] [address] Mean Corpuscular HGB Conc 33.0 g/dL Normal 32.0-35.0 [facility] Comment on above: Performed By: #### H CGQNT, CMP, CBC #### [facility] [address] Monocytes (Bld) [#/Vol] 0.7 10*3/uL Normal 0.0-0.8 [facility] Comment on above: Performed By: #### H CGQNT, CMP, CBC #### [address] Monocytes/100 WBC (Bld) 7.7 % Normal . [facility] Comment on above: Performed By: #### H CGQNT, CMP, CBC #### [address] Neutrophils (Bld) [#/Vol] 5.3 10*3/uL Normal 1.8-7.7 [facility] Comment on above: Performed By: #### H CGQNT, CMP, CBC #### [address] Neutrophils/100 WBC (Bld) 58.8 % Normal . [facility] Comment on above: Performed By: #### H CGQNT, CMP, CBC #### [place] [address] [place] Nucleated RBC/100 WBC (Bld) [Ratio] 0.1 % Normal 0-0.5 [facility] Comment on above: Performed By: #### H CGQNT, CMP, CBC #### [address] Platelet mean volume (Bld) [Entitic vol] 7.6 fL Normal 6.3-10.7 [facility] Comment on above: Performed By: #### H CGQNT, CMP, CBC #### [address] Platelets (Bld) [#/Vol] 309 10*3/uL Normal 150-450 [facility] Comment on above: Performed By: #### H CGQNT, CMP, CBC #### [address] RBC (Bld) [#/Vol] 4.55 10*6/uL Normal 3.60-5.00 [facility] Comment on above: Performed By: #### H CGQNT, CMP, CBC #### [address] WBC (Bld) [#/Vol] 9.0 10*3/uL Normal 4.5-11.0 [facility] Comment on above: Performed By: #### H CGQNT, CMP, CBC #### [address] Comprehensive Metabolic Pane yu 12-14-2020 Albumin [Mass/Vol] 3.0 g/dL Low 3.2-5.5 [facility] Comment on above: Performed By: #### H CGQNT, CMP, CBC #### [address] Albumin/Globulin [Mass ratio] 1.0 {ratio} Normal [facility] Comment on above: Performed By: #### H CGQNT, CMP, CBC #### [address] ALP [Catalytic activity/Vol] 45 U/L Normal 32-92 [facility] Comment on above: Performed By: #### H CGQNT, CMP, CBC #### [address] ALT [Catalytic activity/Vol] 28 U/L Normal 10-60 [facility] Comment on above: Performed By: #### H CGQNT, CMP, CBC #### [address] AST [Catalytic activity/Vol] 24 U/L Normal 10-42 [facility] Comment on above: Performed By: #### H CGQNT, CMP, CBC #### [address] Bilirubin [Mass/Vol] 0.6 mg/dL Normal 0.3-1.2 [facility] Comment on above: Performed By: #### H CGQNT, CMP, CBC #### [address] Calcium [Mass/Vol] 8.5 mg/dL Normal 8.2-10.2 [facility] Comment on above: Performed By: #### H CGQNT, CMP, CBC #### [address] Chloride [Moles/Vol] 103 mmol/L Normal 95-114 [facility] Comment on above: Performed By: #### H CGQNT, CMP, CBC #### [address] CO2 [Moles/Vol] 23.3 mmol/L Normal 22.0-30.0 [facility] Comment on above: Performed By: #### H CGQNT, CMP, CBC #### [address] Creatinine [Mass/Vol] 0.67 mg/dL Normal 0.44-1.03 [facility] Comment on above: Performed By: #### H CGQNT, CMP, CBC #### [place] [address] [place] Creatinine Clr Calc Pharmacy 149.38 [facility] Comment on above: Performed By: #### H CGQNT, CMP, CBC #### [address] Estimated GFR ( Telma > 60 [facility] Comment on above: Result Comment: GFR estimated reference range: According to KDOQI guidelines, <60 ml/min/1.73m2 is sufficient to diagnose a patient with chronic kidney disease. Performed By: #### H CGQNT, CMP, CBC #### [facility] [address] Estimated GFR (Non- Am > 60 Normal [facility] Comment on above: Performed By: #### H CGQNT, CMP, CBC #### [facility] [address] Globulin (S) [Mass/Vol] 3.1 g/dL Normal [facility] Comment on above: Performed By: #### H CGQNT, CMP, CBC #### [address] Glucose [Mass/Vol] 88 mg/dL Normal 70-100 [facility] Comment on above: Result Comment: [facility] Glucose Reference Range is dependent on time and content of last meal. Glucose of more than 200 mg/dL in a nonstressed, ambulatory subject supports the diagnosis of Diabetes Mellitus. ADA recommended reference range Performed By: #### H CGQNT, CMP, CBC #### [address] Potassium [Moles/Vol] 3.4 mmol/L Low 3.5-5.1 [facility] Comment on above: Performed By: #### H CGQNT, CMP, CBC #### [address] Protein [Mass/Vol] 6.1 g/dL Normal 6.1-7.9 [facility] Comment on above: Performed By: #### H CGQNT, CMP, CBC #### [address] Sodium [Moles/Vol] 136 mmol/L Normal 136-146 [facility] Comment on above: Performed By: #### H CGQNT, CMP, CBC #### [address] Urea nitrogen [Mass/Vol] 7 mg/dL Low 9-23 [facility] Comment on above: Performed By: #### H CGQNT, CMP, CBC #### [address] HCG,Quantitativeon 11-09-202 1 HCG,Quantitative 368.59 m[iU]/mL Normal [facility] Comment on above: Result Comment: Appr oximate Approximate hCG Gestational Age Range (mIU/ml) (weeks) 0.2-1 5-50 1-2 50-500 2-3 100-5,000 3-4 500-10,000 4-5 1,000-50,000 5-6 10,000-100,000 6-8 15,000-200,000 8-12 10,000-100,000 PERFORMED BY: [facility] [address] [facility] [place] [address] PATHOLOGIST PRESSURE TESTER OPERATOR KELLY WIGGINS M.D. Performed By: #### H CGQNT, CMP, CBC #### [facility] [address] [place] [id number] [facility] Progesteroneon 10-29-2020 Progesterone 9.3 ng/mL Normal [facility] Comment on above: Result Comment: Mens trual Cycle Progesterone Reference Ranges: Follicular:<1.0 ng/mL Ovulation:<12.1 ng/mL Luteal:1.8 to 23.9 ng/mL Progesterone Reference Ranges vary by gestational period: First Trimester:11.0 to 44.3 ng/mL Second trimester: 25.4 to 83.3 ng/mL Third trimester: 58.7 to 214 ng/mL Post menopausal Progesterone:<0.5 ng/mL Reference: 1. Progesterone (Progesterone III) [package insert V 1.0 Kyrgyz]. [facility], [place], [place]. November 2014. Performed By: #### P ELIZABETH #### [facility] [address] [place], [place] [address] OBSOLETEon 10-03-2020 OBSOLETE Refill (ENDOCC) -- REBECCA WHITE ([id number]) 1990 F Date Time Provider Department 10/03/20 JOYCELYN REED [facility] During your visit today, we recorded the following information about you: Shira Ruiz Griselda 10/05/2020 11:46 AM Signed Requester: Pharmacy Patients last Endocrinology visit occurred 11/20/2019. Follow-up evaluation has been established NO FOLLOW UP SCHEDULED Pending Prescriptions Disp Refills METFORMIN ER 500 MG TABLET,EXTENDED RELEASE 24 HR 180 tablet 0 Sig: TAKE 1 TABLET BY MOUTH TWICE DAILY WITH MEALS LIBERTY: Yes Creatinine Date Value Ref Range Status 05/06/2020 0.72 0.58 - 0.96 mg/dL Final If patient is due for an appointment please route to provider for refill consideration and also to the endo scheduling pool. PSS NOTE: Patient needs scheduled appointment No Jeanie Garcia 10/20/2020 2:11 PM Signed LM for patient to call back to schedule the yearly follow up with Dr. Reed as noted below. Allergies As of Date: 10/03/2020 (No Known Allergies) Date Reviewed: 05/06/2020 Reviewed by: Liliane Drew - Fully Assessed Reason for Visit: Refill Request [94] Visit Diagnosis:PCOS (polycystic ovarian syndrome) [E28.2] Order(s):metFORMIN ER (GLUCOPHAGE XR) 500 mg 24 hr tabletTAKE 1 TABLET BY MOUTH TWICE DAILY WITH MEALSDisp: 180 tabletRfl: 3 Prescriptions as of 10/20/2020 - metFORMIN ER (GLUCOPHAGE XR) 500 mg 24 hr tablet TAKE 1 TABLET BY MOUTH TWICE DAILY WITH MEALS - medroxyPROGESTERone (PROVERA) 10 mg tablet Take 1 tablet by mouth once daily for 10 days. - fluticasone (FLONASE) 50 mcg/actuation nasal spray Use 1 [place] in the nose as needed. - sertraline (ZOLOFT) 50 mg tablet Take 50 mg by mouth once daily. - fexofenadine ER (RADHA ALLERGY) 180 mg tablet Take 180 mg by mouth as needed. - vit/iron fum/folic ac ( 1 + 1 ORAL) Take 1 tablet by mouth once daily. Problem List As Of Date: 10/03/2020 (None) Prescriptions ordered this encounter Disp Refills Start End METFORMIN ER 500 MG TABLET,EXTENDED * 180 * 3 10/05/2020 Route: ORAL Sig: TAKE 1 TABLET BY MOUTH TWICE DAILY WITH MEALS Medications Discontinued During This Encounter Prescriptions - metFORMIN ER (GLUCOPHAGE XR) 500 mg 24 hr tablet (Discontinued) Take 1 tablet by mouth twice daily with meals. Encounter Status:Closed by JEANIE GARCIA on 10/20/20 Normal [facility] Employee Comp Metabolic Pane yu 09-21-2020 Albumin [Mass/Vol] 3.6 g/dL Normal 3.2-5.5 [facility] Comment on above: Performed By: #### P ILLAR LIPID, PILLAR CMP, PILLAR CBC, PILLAR TSH #### [facility] [address] [place] [id number] [facility] Albumin/Globulin [Mass ratio] 1.2 {ratio} Normal [facility] Comment on above: Performed By: #### P ILLAR LIPID, PILLAR CMP, PILLAR CBC, PILLAR TSH #### [facility] [address] [place] [id number] [place] ALP [Catalytic activity/Vol] 57 U/L Normal 32-92 [facility] Comment on above: Performed By: #### P ILLAR LIPID, PILLAR CMP, PILLAR CBC, PILLAR TSH #### [facility] [address] [place] [address] [place] ALT [Catalytic activity/Vol] 23 U/L Normal 10-60 [facility] Comment on above: Performed By: #### P ILLAR LIPID, PILLAR CMP, PILLAR CBC, PILLAR TSH #### [facility] [address] [place] [address] [place] AST [Catalytic activity/Vol] 20 U/L Normal 10-42 [facility] Comment on above: Performed By: #### P ILLAR LIPID, PILLAR CMP, PILLAR CBC, PILLAR TSH #### [facility] [address] [place] [id number] [place] Bilirubin [Mass/Vol] 0.6 mg/dL Normal 0.3-1.2 [facility] Comment on above: Performed By: #### P ILLAR LIPID, PILLAR CMP, PILLAR CBC, PILLAR TSH #### [facility] [address] [place] [id number] [place] Calcium [Mass/Vol] 9.3 mg/dL Normal 8.2-10.2 [facility] Comment on above: Performed By: #### P ILLAR LIPID, PILLAR CMP, PILLAR CBC, PILLAR TSH #### [facility] [address] Chloride [Moles/Vol] 105 mmol/L Normal 95-114 [facility] Comment on above: Performed By: #### P ILLAR LIPID, PILLAR CMP, PILLAR CBC, PILLAR TSH #### [address] CO2 [Moles/Vol] 25.0 mmol/L Normal 22.0-30.0 [facility] Comment on above: Performed By: #### P ILLAR LIPID, PILLAR CMP, PILLAR CBC, PILLAR TSH #### [address] Creatinine [Mass/Vol] 0.68 mg/dL Normal 0.44-1.03 [facility] Comment on above: Performed By: #### P ILLAR LIPID, PILLAR CMP, PILLAR CBC, PILLAR TSH #### [facility] [address] [place] [address] Creatinine Clr Calc Pharmacy 140.25 [facility] Comment on above: Performed By: #### P ILLAR LIPID, PILLAR CMP, PILLAR CBC, PILLAR TSH #### [facility] [address] [place] [address] Estimated GFR ( Telma > 60 [facility] Comment on above: Result Comment: GFR estimated reference range: According to KDOQI guidelines, <60 ml/min/1.73m2 is sufficient to diagnose a patient with chronic kidney disease. Performed By: #### P ILLAR LIPID, PILLAR CMP, PILLAR CBC, PILLAR TSH #### [address] Estimated GFR (Non- Am > 60 [facility] Comment on above: Performed By: #### P ILLAR LIPID, PILLAR CMP, PILLAR CBC, PILLAR TSH #### [address] [place] [address] [place] Globulin (S) [Mass/Vol] 2.9 g/dL Normal [facility] Comment on above: Performed By: #### P ILLAR LIPID, PILLAR CMP, PILLAR CBC, PILLAR TSH #### [address] Glucose [Mass/Vol] 73 mg/dL Normal 70-100 [facility] Comment on above: Performed By: #### P ILLAR LIPID, PILLAR CMP, PILLAR CBC, PILLAR TSH #### [address] Potassium [Moles/Vol] 4.1 mmol/L Normal 3.5-5.1 [facility] Comment on above: Performed By: #### P ILLAR LIPID, PILLAR CMP, PILLAR CBC, PILLAR TSH #### [address] Protein [Mass/Vol] 6.5 g/dL Normal 6.1-7.9 [facility] Comment on above: Performed By: #### P ILLAR LIPID, PILLAR CMP, PILLAR CBC, PILLAR TSH #### [facility] [address] [place] [address] Sodium [Moles/Vol] 140 mmol/L Normal 136-146 [facility] Comment on above: Performed By: #### P ILLAR LIPID, PILLAR CMP, PILLAR CBC, PILLAR TSH #### [facility] [address] [place] [address] Urea nitrogen [Mass/Vol] 10 mg/dL Normal 9-23 [facility] Comment on above: Performed By: #### P ILLAR LIPID, PILLAR CMP, PILLAR CBC, PILLAR TSH #### [facility] [address] [place] [address] Employee Complete Blood Coun ton 09-21-2020 Basophils (Bld) [#/Vol] 0.1 10*3/uL Normal 0.0-0.2 [facility] Comment on above: Result Comment: PERF ORMED BY: [place] [address] PATHOLOGIST PRESSURE TESTER OPERATOR KELLY WIGGINS M.D. Performed By: #### P ILLAR LIPID, PILLAR CMP, PILLAR CBC, PILLAR TSH #### [address] Basophils/100 WBC (Bld) 1.0 % Normal . [facility] Comment on above: Performed By: #### P ILLAR LIPID, PILLAR CMP, PILLAR CBC, PILLAR TSH #### [address] Eosinophils (Bld) [#/Vol] 0.2 10*3/uL Normal 0.0-0.45 [facility] Comment on above: Performed By: #### P ILLAR LIPID, PILLAR CMP, PILLAR CBC, PILLAR TSH #### [address] Eosinophils/100 WBC (Bld) 2.7 % Normal . [facility] Comment on above: Performed By: #### P ILLAR LIPID, PILLAR CMP, PILLAR CBC, PILLAR TSH #### [address] Erythrocyte distribution width (RBC) [Ratio] 13.8 % Normal 11.9-15.3 [facility] Comment on above: Performed By: #### P ILLAR LIPID, PILLAR CMP, PILLAR CBC, PILLAR TSH #### [address] Hematocrit (Bld) [Volume fraction] 40.0 % Normal 34.0-46.4 [facility] Comment on above: Performed By: #### P ILLAR LIPID, PILLAR CMP, PILLAR CBC, PILLAR TSH #### [address] Hemoglobin (Bld) [Mass/Vol] 13.5 g/dL Normal 11.8-15.4 [facility] Comment on above: Performed By: #### P ILLAR LIPID, PILLAR CMP, PILLAR CBC, PILLAR TSH #### [facility] [address] Lymphocytes (Bld) [#/Vol] 3.2 10*3/uL Normal 1.00-4.8 [facility] Comment on above: Performed By: #### P ILLAR LIPID, PILLAR CMP, PILLAR CBC, PILLAR TSH #### [address] Lymphocytes/100 WBC (Bld) 37.3 % Normal . [facility] Comment on above: Performed By: #### P ILLAR LIPID, PILLAR CMP, PILLAR CBC, PILLAR TSH #### [address] MCH (RBC) [Entitic mass] 29.8 pg Normal 24.7-34.3 [facility] Comment on above: Performed By: #### P ILLAR LIPID, PILLAR CMP, PILLAR CBC, PILLAR TSH #### [address] MCV (RBC) [Entitic vol] 87.9 fL Normal 80-100 [facility] Comment on above: Performed By: #### P ILLAR LIPID, PILLAR CMP, PILLAR CBC, PILLAR TSH #### [address] Mean Corpuscular HGB Conc 33.8 g/dL Normal 32.0-35.0 [facility] Comment on above: Performed By: #### P ILLAR LIPID, PILLAR CMP, PILLAR CBC, PILLAR TSH #### [address] Monocytes (Bld) [#/Vol] 0.6 10*3/uL Normal 0.0-0.8 [facility] Comment on above: Performed By: #### P ILLAR LIPID, PILLAR CMP, PILLAR CBC, PILLAR TSH #### [address] Monocytes/100 WBC (Bld) 6.9 % Normal . [facility] Comment on above: Performed By: #### P ILLAR LIPID, PILLAR CMP, PILLAR CBC, PILLAR TSH #### [facility] [address] [place] [address] [place] Neutrophils (Bld) [#/Vol] 4.4 10*3/uL Normal 1.8-7.7 [facility] Comment on above: Performed By: #### P ILLAR LIPID, PILLAR CMP, PILLAR CBC, PILLAR TSH #### [facility] [address] [place] [address] [place] Neutrophils/100 WBC (Bld) 52.1 % Normal . [facility] Comment on above: Performed By: #### P ILLAR LIPID, PILLAR CMP, PILLAR CBC, PILLAR TSH #### [facility] [address] [place] [address] [place] Nucleated RBC/100 WBC (Bld) [Ratio] 0.1 % Normal 0-0.5 [facility] Comment on above: Performed By: #### P ILLAR LIPID, PILLAR CMP, PILLAR CBC, PILLAR TSH #### [facility] [address] [place] [address] [place] Platelet mean volume (Bld) [Entitic vol] 8.4 fL Normal 6.3-10.7 [facility] Comment on above: Performed By: #### P ILLAR LIPID, PILLAR CMP, PILLAR CBC, PILLAR TSH #### [facility] [address] [place] [address] [place] Platelets (Bld) [#/Vol] 334 10*3/uL Normal 150-450 [facility] Comment on above: Performed By: #### P ILLAR LIPID, PILLAR CMP, PILLAR CBC, PILLAR TSH #### [facility] [address] [place] [address] [place] RBC (Bld) [#/Vol] 4.55 10*6/uL Normal 3.60-5.00 [facility] Comment on above: Performed By: #### P ILLAR LIPID, PILLAR CMP, PILLAR CBC, PILLAR TSH #### [facility] [address] [place] [id number] [place] WBC (Bld) [#/Vol] 8.5 10*3/uL Normal 4.5-11.0 [facility] Comment on above: Performed By: #### P ILLAR LIPID, PILLAR CMP, PILLAR CBC, PILLAR TSH #### [facility] [address] [place] [address] [facility] Employee Lipid Profileon Cholesterol [Mass/Vol] 196 mg/dL Normal 140-200 [facility] Comment on above: Result Comment: Chol less than 200 mg/dl low risk Chol 201-239 mg/dl borderline risk Chol 240 mg/dl and greater high risk Performed By: #### P ILLAR LIPID, PILLAR CMP, PILLAR CBC, PILLAR TSH #### [facility] [address] [place] [address] [facility] Cholesterol in HDL [Mass/Vol] 42 mg/dL Normal 35-85 [facility] Comment on above: Result Comment: HDL CHOL ATP-III CLASSIFICATION Cardiovascular Risk HDL > or equal to 60 mg/dL LOW HDL < 40 mg/dL HIGH Performed By: #### P ILLAR LIPID, PILLAR CMP, PILLAR CBC, PILLAR TSH #### [facility] [address] [place] [address] [facility] Cholesterol.total/ Cholesterol in HDL [Mass ratio] 4.7 {ratio} Normal <5.0 [facility] Comment on above: Performed By: #### P ILLAR LIPID, PILLAR CMP, PILLAR CBC, PILLAR TSH #### [facility] [address] [place] [address] [facility] LDL Cholesterol,Calcul ated 132 mg/dL High 0-100 [facility] Comment on above: Result Comment: LDL ATP III CLASSIFICATION LDL less than 100 mg/dL Optimal LDL 100-129 mg/dL Near or above optimal LDL 130-159 mg/dL Borderline high LDL 160-189 mg/dL High LDL greater than 189 mg/dL Very high Performed By: #### P ILLAR LIPID, PILLAR CMP, PILLAR CBC, PILLAR TSH #### [facility] [address] [place] [address] [place] Triglyceride w/Reflex 110 mg/dL Normal 35-149 [facility] Comment on above: Result Comment: TRIG ATP III CLASSIFICATION TRIG less than 150 mg/dL Normal TRIG 150-199 mg/dL Borderline high TRIG 200-500 mg/dL High TRIG greater than 500 mg/dL Very high Standard traceable to the Center for Disease Conrtrol and Prevention (CDC) test method. Performed By: #### P ILLAR LIPID, PILLAR CMP, PILLAR CBC, PILLAR TSH #### [facility] [address] VLDL CHOLESTEROL 22 mg/dL Normal [facility] Comment on above: Performed By: #### P ILLAR LIPID, PILLAR CMP, PILLAR CBC, PILLAR TSH #### [facility] [address] Employee Thyroid Stim Hormon fabio 09-21-2020 Employee Thyroid Stim Hormone 5.76 u[iU]/mL High 0.45-5.33 [facility] Comment on above: Result Comment: PERF ORMED BY: [place] [address] PATHOLOGIST PRESSURE TESTER OPERATOR KELLY WIGGINS M.D. Performed By: #### P ILLAR LIPID, PILLAR CMP, PILLAR CBC, PILLAR TSH #### [address] Estradiol-17Bon 09-10-2020 Estradiol-17B 57 pg/mL Normal [facility] Comment on above: Result Comment: This test is not suitable for patients receiving treatment with the drug Fulvestrant (Faslodex). The drug causes an interference leading to falsely elevated estradiol results. Menstrual cycle Estradiol reference ranges: Follicular : < 234 pg/mL Ovulation : 41 to 398 pg/mL Luteal : < 342 pg/mL Estradiol reference ranges vary by gestational period: First trimester : 154 to 3243 pg/mL Second trimester : 1561 TO 09258 pg/mL Third trimester : 8285 to >05907 pg/mL Post-menopausal Estradiol reference range: < 41 pg/mL Reference: 1. Estradiol - E2 (Estradiol III) [package insert V 3.0 Kyrgyz]. [facility], [place], [place], July 2015. Performed By: #### I NSULN, DHEAS, VITD, HBA1C, GERMAIN #### [facility] [address] [place], [place] [address] HCG, Quantitative Blon 09-10 HCG, Quantitative Bl <0.6 Normal <5.0 [facility] Comment on above: Result Comment: PAT JULIO Performed By: #### I NSULN, DHEAS, VITD, HBA1CDIONISIO #### [facility] [address] [place], [place] [address] Progesteroneon 09-10-2020 Progesterone 0.2 ng/mL Normal [facility] Comment on above: Result Comment: Mens trual Cycle Progesterone Reference Ranges: Follicular:<1.0 ng/mL Ovulation:<12.1 ng/mL Luteal:1.8 to 23.9 ng/mL Progesterone Reference Ranges vary by gestational period: First Trimester:11.0 to 44.3 ng/mL Second trimester: 25.4 to 83.3 ng/mL Third trimester: 58.7 to 214 ng/mL Post menopausal Progesterone:<0.5 ng/mL Reference: 1. Progesterone (Progesterone III) [package insert V 1.0 Kyrgyz]. [facility], [place], [place]. November 2014. Performed By: #### I NSULN, DHEAS, VITD, HBA1CDIONISIO #### [facility] [address] [place], [place] [address] CNPChanel 09-09-2020 [place] Telephone (JANN) -- REBECCA WHITE ([id number]) 1990 F Date Time Provider Department 09/09/20 HALLE LEACH During your visit today, we recorded the following information about you: Sheela Trevino CATTLE SPRAYER 09/09/2020 9:12 AM Signed Pt called Negative home test Day 42 of her cycle Please call [phone] Ok to leave a message Rafaela Millard RN 09/09/2020 12:31 PM Signed Patient had sent my chart message Called the patient she verified her name and date of . Patient last cycle was 42 days ago. July 30 2020 Last cycle she took clomid 100 mg She has taken multiple tests all are negative. Routing to Non Valentín Ivf Pool Labs pended and medication Rafaela Millard RN September 09, 2020 12:30 PM Maurice Bonilla APRN.CNP 09/09/2020 12:43 PM Signed Labs ordered, if negative, will order provera to induce period. 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 - fluticasone (FLONASE) 50 mcg/actuation nasal spray Use 1 [place] in the nose as needed. - sertraline (ZOLOFT) 50 mg tablet Take 50 mg by mouth once daily. - fexofenadine ER (RADHA ALLERGY) 180 mg tablet Take 180 mg by mouth as needed. - vit/iron fum/folic ac ( 1 + 1 ORAL) Take 1 tablet by mouth once daily. - metFORMIN ER (GLUCOPHAGE XR) 500 mg 24 hr tablet Take 1 tablet by mouth twice daily with meals. Problem List As Of Date: 09/09/2020 (None) Encounter Status:Closed by MAURICE [facility]ONILLA on 09/09/20 [facility] ([facility]) -- HOLLYREBECCA ([id number]) 1990 F Date Time Provider Department 09/03/20 HALLE LEACH During your visit today, we recorded the following information about you: Rafaela Millard RN 09/03/2020 8:22 AM Signed Patient sent a Kiwiple message. Called the patient she verified her name and date of Patient last cycle was July 30 2020. Patient did take clomid 50 mg this cycle day 3-7. This is her third round of clomid Patient does not test for ovulation. The first cycle they did progesterone test that did show she does ovulate on clomid. Patient cycles on clomid have been 32-33 days. Patient took home tests that have been negative. The last time she used provera was May. Routing to [facility] Pool for advisement Rafaela Millard RN September 03, 2020 8:22 AM Allergies As of Date: 09/03/2020 (No Known Allergies) Date Reviewed: 05/06/2020 Reviewed by: Liliane Drwe - Fully Assessed Reason for Visit: Question [1327] Prescriptions as of 09/09/2020 - medroxyPROGESTERone (PROVERA) 10 mg tablet Take 1 tablet by mouth once daily for 10 days. - fluticasone (FLONASE) 50 mcg/actuation nasal spray Use 1 [place] in the nose as needed. - sertraline (ZOLOFT) 50 mg tablet Take 50 mg by mouth once daily. - fexofenadine ER (RADHA ALLERGY) 180 mg tablet Take 180 mg by mouth as needed. - vit/iron fum/folic ac ( 1 + 1 ORAL) Take 1 tablet by mouth once daily. - metFORMIN ER (GLUCOPHAGE XR) 500 mg 24 hr tablet Take 1 tablet by mouth twice daily with meals. Problem List As Of Date: 09/03/2020 (None) Encounter Status:Closed by RAFAELA MILLARD on 09/09/20 Normal [facility] Progesteroneon 06-16-2020 Progesterone 14.3 ng/mL Normal [facility] Comment on above: Result Comment: Mens trual Cycle Progesterone Reference Ranges: Follicular:<1.0 ng/mL Ovulation:<12.1 ng/mL Luteal:1.8 to 23.9 ng/mL Progesterone Reference Ranges vary by gestational period: First Trimester:11.0 to 44.3 ng/mL Second trimester: 25.4 to 83.3 ng/mL Third trimester: 58.7 to 214 ng/mL Post menopausal Progesterone:<0.5 ng/mL Reference: 1. Progesterone (Progesterone III) [package insert V 1.0 Kyrgyz]. [facility], [place], [place]. November 2014. Performed By: #### P ELIZABETH #### [place] [address] Anti Germain Hormoneon 2020 Anti Germain Hormone 9.30 ng/mL High 0.58-8.13 [facility] Comment on above: Performed By: #### I NSULN, DHEAS, VITD, HBA1C, GERMAIN #### [facility] [address] [place] [address] CBCon 05-06-2020 Absolute nRBC <0.01 Normal <0.01 [facility] Comment on above: Performed By: #### I NSULN, DHEAS, VITD, HBA1C, GERMAIN #### [facility] [place] [address] Erythrocyte distribution width (RBC) [Ratio] 13.2 % Normal 11.5-15.0 [facility] Comment on above: Performed By: #### I NSULN, DHEAS, VITD, HBA1C, GERMAIN #### [facility] [address] [place] [address] Hematocrit (Bld) [Volume fraction] 44.5 % Normal 36.0-46.0 [facility] Comment on above: Performed By: #### I NSULN, DHEAS, VITD, HBA1C, DIONISIO #### [place] [address] [place] [address] Hemoglobin (Bld) [Mass/Vol] 14.6 g/dL Normal 11.5-15.5 [facility] Comment on above: Performed By: #### I NSULN, DHEAS, VITD, HBA1C, DIONISIO #### [place] [address] MCH 29.4 pG Normal 26.0-34.0 [facility] Comment on above: Performed By: #### I NSULN, DHEAS, VITD, HBA1C, DIONISIO #### [place] [address] MCHC (RBC) [Mass/Vol] 32.8 g/dL Normal 30.5-36.0 [facility] Comment on above: Performed By: #### I NSULN, DHEAS, VITD, HBA1C, DIONISIO #### [place] [address] [place] [address] MCV (RBC) [Entitic vol] 89.5 fL Normal 80.0-100.0 [facility] Comment on above: Performed By: #### I NSULN, DHEAS, VITD, HBA1C, DIONISIO #### [place] [address] [place] [address] Platelet mean volume (Bld) [Entitic vol] 9.6 fL Normal 9.0-12.7 [facility] Comment on above: Performed By: #### I NSULN, DHEAS, VITD, HBA1C, DIONISIO #### [place] [address] [place] [address] Platelets (Bld) [#/Vol] 314 10*3/uL Normal 150-400 [facility] Comment on above: Performed By: #### I NSULN, DHEAS, VITD, HBA1C, DIONISIO #### [place] [address] [place], [place] [address] RBC (Bld) [#/Vol] 4.97 10*6/uL Normal 3.90-5.20 [facility] Comment on above: Performed By: #### I NSULN, DHEAS, VITD, HBA1C, DIONISIO #### [facility] [address] [place], [place] [address] WBC (Bld) [#/Vol] 8.64 10*3/uL Normal 3.70-11.00 [facility] Comment on above: Performed By: #### I NSULN, DHEAS, VITD, HBA1C, DIONISIO #### [facility] [address] [place], [place] [address] CNOVon 05-06-2020 CNOV Office Visit ([place]) -- REBECCA WHITE ([id number]) 1990 F Date Time Provider Department 05/06/20 8:45 AM HALLE LEACH During your visit today, we recorded the following information about you: Pulse Blood pressure Weight Height 64/minute 119/64 104.6 kg 1.676 m Last Period 01/08/20 Liliane Drew MA 05/06/2020 8:50 AM Signed [facility] Date: 05/06/2020 Consultation Requested By: Dr Joycelyn Reed Rebecca White is a 30 year old female presenting with the following history: HISTORY OF PRESENT ILLNESS: Rebecca White is a 30 year old female with Here for secondary amenorrhea and hirsutism. 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 She also has hirsutism since she was a teenage. Per pt, after adrenectomy, her symptoms were not change at all. She later was tested again for hyperadrogenism (all results are in Epic) which showed PCOS. Ultrasound today showed no evidence of ovarian tumors. She normally has 3-4 periods/year. However, her LMP was 01/2020. She tried letrozole up to 7.5 mg and did not ovulate. Therefore, she was referred here for further evaluation and treatment. Obstetric History T0 L0 SAB0 TAB0 Ectopic0 Multiple0 Live Births0 Component Latest Ref Rng AND Units 12/05/2019 Hydroxyprogesterone <=206.00 ng/dL 71.06 Prolactin 4.5 - 26.8 ng/mL 20.9 TSH 0.270 - 4.200 uU/mL 4.180 Fertility Evaluations and Treatments: Eval Checklist Results Date Comments HSG Hysteroscopy Laparoscopy OPK (Ovulation Predictor Kit) Ovarian [place] Saline Ultrasound Semen Analysis Ultrasound Other (See comments) Prior Fertility Eval Date tried estradiol at age 15 1/2 years to regulate period x 2, resulted no period MENSTRUAL HISTORY: Menarche Age: 13 1/2 year old Length of Cycle: no period since -2019, last year about 2 periods in 1 year Irregular Days: 6 days, sometimes less Menstrual Flow: Moderate Menstrual Symptoms: Breast Tenderness,Mood Changes,Bloating,Cramping Patient's last menstrual period was 01/08/2020. PAST MEDICAL HISTORY Diagnosis Date - Irregular menstrual cycle - PCOS (polycystic ovarian syndrome) since age of 14 PAST SURGICAL HISTORY Procedure Laterality Date - EXTRACTION ERUPTED TOOTH removal of 2 wisdom teeth - PAST SURGICAL HISTORY OF 07/2003 Left adrenal gland removed No family history on file. 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/EXERCISE: Occupation: [employer] Exercise: no Partner Information Partner's Name: Pietro White Partner's : 09/08/1980 Partner's MRN: Partner's Ethnicity: Partner's Race: White Occupation: [employer] Insurance Legally ?: Yes Years together: 3 years Do they have children together?: No Any other Previous Pregnancies?: No Smoking History: Not currently Quit Smokin Use of alchol: socially Use of Drugs: no Medications: losartan 50mg, amlodipine, effexor xr Pertinent Surgical Hx: filed upper teeth Pertinent Genetic Hx: no MEDICATIONS: Current Outpatient Medications on File Prior to Visit Medication Sig - fluticasone (FLONASE) 50 mcg/actuation nasal spray Use 1 [place] in the nose as needed. - sertraline (ZOLOFT) 50 mg tablet Take 50 mg by mouth once daily. - fexofenadine ER (RADHA ALLERGY) 180 mg tablet Take 180 mg by mouth as needed. - vit/iron fum/folic ac ( 1 + 1 ORAL) Take 1 tablet by mouth once daily. - metFORMIN ER (GLUCOPHAGE XR) 500 mg 24 hr tablet Take 1 tablet by mouth twice daily with meals. No current facility-administered medications on file prior to visit. ALLERGIES: Patient has no known allergies. [facility] PAP Results: Normal Date: 07-15-2018 HPV Results: Negative Date: 07-15-2018 Blood Type: No results found for this basename: aborhd No results found for this basename: rubqnt,vzvg ASSESSMENT: Assessment: 30 year old female with hyperandrogenism, irregular period. Work up showed PCOS. Pt is here to discuss about TTC. Exam today showed no evidence of cliteromegaly. PLAN: Office Visit on 05/06/20 -VITAMIN D 25 HYDROXY -TESTOSTERONE, FREE AND TOTAL -CBC -COMP METABOLIC PANEL -INSULIN ASSAY BLOOD -ANTI MULLERIAN HORMONE -HGB A1C -DHEA-S BLD -SCHEDULE LAB TESTING -CONSULT TO INFERTILITY CLINIC -PELVIC US [facility]I Pt to start provera then start clomid. She will get prog done on cycle day 20-22 and titrate dose accordingly. I spent 40 minutes in the visit, with more than 50% of the total urvp-vb-sohw time of the visit in counseling / coordination of care. Medical Decision Making Consultation requested by Dr. Joycelyn Reed MD [address] [place], [place] [address]nut [facility] Dr [place] [id number] for an opinion regarding irregular period and my recommendations will be (more content not included)... Normal [facility] CONSULT PROGon 05-06-2020 CONSULT PROG HNO ID: [id number] Author: Liliane Drew Service: ? Author Type: Lens Molder Type: Consult Progress Note Filed: 05/11/2020 7:30 PM Note Text: [facility] Date: 05/06/2020 Consultation Requested By: Dr Joycelyn Reed Rebecca White is a 30 year old female presenting with the following history: HISTORY OF PRESENT ILLNESS: Rebecca White is a 30 year old female with Here for secondary amenorrhea and hirsutism. 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 She also has hirsutism since she was a teenage. Per pt, after adrenectomy, her symptoms were not change at all. She later was tested again for hyperadrogenism (all results are in Epic) which showed PCOS. Ultrasound today showed no evidence of ovarian tumors. She normally has 3-4 periods/year. However, her LMP was 01/2020. She tried letrozole up to 7.5 mg and did not ovulate. Therefore, she was referred here for further evaluation and treatment. Obstetric History T0 L0 SAB0 TAB0 Ectopic0 Multiple0 Live Births0 Component Latest Ref Rng AND Units 12/05/2019 Hydroxyprogesterone <=206.00 ng/dL 71.06 Prolactin 4.5 - 26.8 ng/mL 20.9 TSH 0.270 - 4.200 uU/mL 4.180 Fertility Evaluations and Treatments: Eval Checklist Results Date Comments HSG Hysteroscopy Laparoscopy OPK (Ovulation Predictor Kit) Ovarian [place] Saline Ultrasound Semen Analysis Ultrasound Other (See comments) Prior Fertility Eval Date tried estradiol at age 15 1/2 years to regulate period x 2, resulted no period MENSTRUAL HISTORY: Menarche Age: 13 1/2 year old Length of Cycle: no period since , last year about 2 periods in 1 year Irregular Days: 6 days, sometimes less Menstrual Flow: Moderate Menstrual Symptoms: Breast Tenderness,Mood Changes,Bloating,Cramping Patient's last menstrual period was 01/08/2020. PAST MEDICAL HISTORY Diagnosis Date - Irregular menstrual cycle - PCOS (polycystic ovarian syndrome) since age of 14 PAST SURGICAL HISTORY Procedure Laterality Date - EXTRACTION ERUPTED TOOTH removal of 2 wisdom teeth - PAST SURGICAL HISTORY OF 07/2003 Left adrenal gland removed No family history on file. 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 Exercise: no Partner Information Partner's Name: Pietro White Partner's : 09/08/1980 Partner's MRN: Partner's Ethnicity: Partner's Race: White Occupation: [employer] Insurance Legally ?: Yes Years together: 3 years Do they have children together?: No Any other Previous Pregnancies?: No Smoking History: Not currently Quit Smokin Use of alchol: socially Use of Drugs: no Medications: losartan 50mg, amlodipine, effexor xr Pertinent Surgical Hx: filed upper teeth Pertinent Genetic Hx: no MEDICATIONS: Current Outpatient Medications on File Prior to Visit Medication Sig - fluticasone (FLONASE) 50 mcg/actuation nasal spray Use 1 [place] in the nose as needed. - sertraline (ZOLOFT) 50 mg tablet Take 50 mg by mouth once daily. - fexofenadine ER (RADHA ALLERGY) 180 mg tablet Take 180 mg by mouth as needed. - vit/iron fum/folic ac ( 1 + 1 ORAL) Take 1 tablet by mouth once daily. - metFORMIN ER (GLUCOPHAGE XR) 500 mg 24 hr tablet Take 1 tablet by mouth twice daily with meals. No current facility-administered medications on file prior to visit. ALLERGIES: Patient has no known allergies. [facility] PAP Results: Normal Date: 07-15-2018 HPV Results: Negative Date: 07-15-2018 Blood Type: No results found for this basename: aborhd No results found for this basename: rubqnt,vzvg ASSESSMENT: Assessment: 30 year old female with hyperandrogenism, irregular period. Work up showed PCOS. Pt is here to discuss about TTC. Exam today showed no evidence of cliteromegaly. PLAN: Office Visit on 05/06/20 -VITAMIN D 25 HYDROXY -TESTOSTERONE, FREE AND TOTAL -CBC -COMP METABOLIC PANEL -INSULIN ASSAY BLOOD -ANTI MULLERIAN HORMONE -HGB A1C -DHEA-S BLD -SCHEDULE LAB TESTING -CONSULT TO INFERTILITY CLINIC -PELVIC US WHI Pt to start provera then start clomid. She will get prog done on cycle day 20-22 and titrate dose accordingly. I spent 40 minutes in the visit, with more than 50% of the total sand-he-hgib time of the visit in counseling / coordination of care. Medical Decision Making Consultation requested by Dr. Joycelyn Reed MD [address] [place] [address] [place] [id number] for an opinion regarding irregular period and my recommendations will be communicated back to the requesting physician by way of shared Medical record or letter via US mail , MD signature - MD Shirin Agosto MD Normal [facility] Comp Metabolic Panelon 05-06 Albumin [Mass/Vol] 4.2 g/dL Normal 3.9-4.9 [facility] Comment on above: Performed By: #### I NSULN, DHEAS, VITD, HBA1C, GERMAIN #### [facility] [address] [place], [place] [address] ALP [Catalytic activity/Vol] 81 U/L Normal 34-123 [facility] Comment on above: Performed By: #### I NSULN, DHEAS, VITD, HBA1C, GERMAIN #### [facility] [address] [place], [place] [address] ALT [Catalytic activity/Vol] 18 U/L Normal 7-38 [facility] Comment on above: Performed By: #### I NSULN, DHEAS, VITD, HBA1C, GERMAIN #### [facility] [address] [place], [place] [address] Anion gap [Moles/Vol] 13 mmol/L Normal 9-18 [facility] Comment on above: Performed By: #### I NSULN, DHEAS, VITD, HBA1C, GERMAIN #### [facility] [address] [place], [place] [address] AST [Catalytic activity/Vol] 19 U/L Normal 13-35 [facility] Comment on above: Performed By: #### I NSULN, DHEAS, VITD, HBA1C, GERMAIN #### [facility] [address] [place], [place] [address] Bilirubin [Mass/Vol] 0.3 mg/dL Normal 0.2-1.3 [facility] Comment on above: Performed By: #### I NSULN, DHEAS, VITD, HBA1C, GERMAIN #### [facility] [address] [place], [place] [address] Calcium [Mass/Vol] 9.3 mg/dL Normal 8.5-10.2 [facility] Comment on above: Performed By: #### I NSULN, DHEAS, VITD, HBA1C, GERMAIN #### [facility] [address] [place] [address] Chloride [Moles/Vol] 103 mmol/L Normal 97-105 [facility] Comment on above: Performed By: #### I NSULN, DHEAS, VITD, HBA1C, GERMAIN #### [place] [address] CO2 [Moles/Vol] 24 mmol/L Normal 22-30 [facility] Comment on above: Performed By: #### I NSULN, DHEAS, VITD, HBA1C, GERMAIN #### [place] [phone] Creatinine [Mass/Vol] 0.72 mg/dL Normal 0.58-0.96 [facility] Comment on above: Performed By: #### I NSULN, DHEAS, VITD, HBA1C, GERMAIN #### [place] [address] eGFR- Amer. >60 Normal [facility] Comment on above: Performed By: #### I NSULN, DHEAS, VITD, HBA1C, GERMAIN #### [place] [phone] eGFR-All Other Races >60 Normal [facility] Comment on above: Result Comment: eGFR (Estimated GFR) Units of measure: mL/min/1.73 meters squared eGFR is derived from the reexpressed MDRD Study equation using the following parameters: serum creatinine, age, gender and race. The creatinine assay has been calibrated to be traceable to IDMS. An eGFR <60 mL/min/1.73m2 for >3 months is consistent with chronic kidney disease. Refer to KDOQI guidelines for clinical interpretation. In patients with unstable renal function, e.g. those with acute kidney injury, the eGFR may not accurately reflect actual GFR. Performed By: #### I NSULN, DHEAS, VITD, HBA1C, GERMAIN #### [facility] [address] [place] [id number] Glucose [Mass/Vol] 85 mg/dL Normal 74-99 [facility] Comment on above: Result Comment: The [place] Diabetes Association (ADA) provides guidance for cutoff values for fasting glucose and random glucose. The ADA defines fasting as no caloric intake for at least 8 hours. Fasting plasma glucose results between 100 to 125 mg/dL indicate increased risk for diabetes (prediabetes). Fasting plasma glucose results greater than or equal to 126 mg/dL meet the criteria for diagnosis of diabetes. In the absence of unequivocal hyperglycemia, results should be confirmed by repeat testing. In a patient with classic symptoms of hyperglycemia or hyperglycemic crisis, random plasma glucose results greater than or equal to 200 mg/dL meet the criteria for diagnosis of diabetes. Reference: Standards of Medical Care in Diabetes 2016, [place] Diabetes Association. Diabetes Care. 2016.39(Suppl 1). Performed By: #### I NSULN, DHEAS, VITD, HBA1C, GERMAIN #### [facility] [address] [place] [address] Potassium [Moles/Vol] 3.9 mmol/L Normal 3.7-5.1 [facility] Comment on above: Performed By: #### I NSULN, DHEAS, VITD, HBA1C, GERMAIN #### [facility] [address] [place], [place] [address] Protein [Mass/Vol] 7.4 g/dL Normal 6.3-8.0 [facility] Comment on above: Performed By: #### I NSULN, DHEAS, VITD, HBA1C, GERMAIN #### [facility] [address] [place], [place] [address] Sodium [Moles/Vol] 140 mmol/L Normal 136-144 [facility] Comment on above: Performed By: #### I NSULN, DHEAS, VITD, HBA1C, GERMAIN #### [facility] [address] [place] [id number] Urea nitrogen [Mass/Vol] 9 mg/dL Normal 7-21 [facility] Comment on above: Performed By: #### I NSULN, DHEAS, VITD, HBA1CDIONISIO #### [facility] [address] [place] [id number] DHEA-Son 05-06-2020 DHEA-S 154.9 ug/dL Normal 98.8-340.0 [facility] Comment on above: Result Comment: Refe rence ranges are age and gender specific. For additional information, reference range tables can be found in the laboratory test directory. The normal values are based on the following source: Dehydroepiandrosterone sulfate (DHEA S) [package insert V 17.0 Kyrgyz]. [facility], [place], [place]: September 2012. Performed By: #### I NSULN, DHEAS, VITD, HBA1CDIONISIO #### [place] [address] [place] [id number] Hemoglobin A1con 05-06-2020 Glucose [Mass/Vol] 111 mg/dL Normal [facility] Comment on above: Result Comment: eAG: (Estimated average glucose) is a calculated value from HgbA1c and is quality audit representative of the average blood glucose level in the last 2-3 month period. Performed By: #### I NSULN, DHEAS, VITD, HBA1CDIONISIO #### [facility] [address] [place] [id number] HbA1c (Bld) [Mass fraction] 5.5 % Normal 4.3-5.6 [facility] Comment on above: Result Comment: [place] Diabetes Association guidelines indicate that patients with HgbA1c in the range 5.7-6.4% are at increased risk for development of diabetes, and intervention by lifestyle modification may be beneficial. HgbA1c greater or equal to 6.5% is considered diagnostic of diabetes. Performed By: #### I NSULN, DHEAS, VITD, HBA1C, DIONISIO #### [facility] [address] [place], [place] [address] Insulinon 05-06-2020 Insulin 16.4 mU/L Normal 3.0-25.0 [facility] Comment on above: Performed By: #### I NSULN, DHEAS, VITD, HBA1C, DIONISIO #### [facility] [address] [place] [address] Testosterone, Tot/Fron 05-06 Testosterone [Mass/Vol] 77 ng/dL High 8-60 [facility] Comment on above: Result Comment: (NOT E) ADDITIONAL INFORMATION Testing performed by Liquid Chromatography-Tandem Mass Spectrometry (LC-MS/MS). This test was developed and its performance characteristics determined by [facility] in a manner consistent with CLIA requirements. This test has not been cleared or approved by the U.S. Food and Drug Administration. Performed By: #### T FTEST #### [facility] [address] [place] [address] Testosterone, Free 1.54 ng/dL High 0.06-1.03 [facility] Comment on above: Result Comment: (NOT E) ADDITIONAL INFORMATION Testing performed by [facility]. This test was developed and its performance characteristics determined by [facility] in a manner consistent with CLIA requirements. This test has not been cleared or approved by the U.S. Food and Drug Administration. Performed By: #### T FTEST #### [facility] [address] [place] [address] Vitamin D 25 Hydroxyon 05-06 Vitamin D 25 Hydroxy 24.7 ng/mL Low 31.0-80.0 [facility] Comment on above: Result Comment: Clas sification of 25 [place] Vitamin D status: Insufficiency/Moderate Deficiency: < or = 30 ng/mL Sufficiency/Optimal Levels: 31 to 80 ng/mL Toxicity: > 100 ng/mL Test performed by chemiluminescent immunoassay. Performed By: #### I NSULN, DHEAS, VITD, HBA1CDIONISIO #### [facility] [address] [place] [address] Creatinine,Urine,24hon 03-29 Creatinine,Urine,2 4h 1.713 g/24 hr Normal 0.8-1.8 [facility] Comment on above: Performed By: #### I NSULN, DHEAS, VITD, HBA1C, GERMAIN #### [facility] [address] [place] [address] Free Ben, UR LCMSMSon 03-29 Collect Lgth, UFRCRT 24 Normal [facility] Comment on above: Performed By: #### I NSULN, DHEAS, VITD, HBA1C, GERMAIN #### [place] [address] Creatinine [Mass/Vol] 214 mg/dL Normal [facility] Comment on above: Performed By: #### I NSULN, DHEAS, VITD, HBA1C, GERMAIN #### [place] [id number] [place] [address] Total Volume, UFRCRT 710 Normal [facility] Comment on above: Performed By: #### I NSULN, DHEAS, VITD, HBA1C, GERMAIN #### [place] [id number] [place] [address] UR Ben Free Interp SEE NOTE Normal [facility] Comment on above: Result Comment: (NOT E) INTERPRETIVE INFORMATION: Cortisol Urine Free by LC-MS/MS Access complete set of age- and/or gender-specific reference intervals for this test in the [facility] Test Directory ([employer]). This test was developed and its performance characteristics determined by [facility]. It has not been cleared or approved by the [place] Food and Drug Administration. This test was performed in a CLIA certified laboratory and is intended for clinical purposes. Performed by [facility], [address] [place] [id number] [email or web address], Lin Rosales MD, Lab. Director Performed By: #### I NSULN, DHEAS, VITD, HBA1C, GERMAIN #### [facility] [address] [place] [address] UR Ben Free ug/d 14.5 ug/d Normal <=45.0 [facility] Comment on above: Performed By: #### I NSULN, DHEAS, VITD, HBA1C, GERMAIN #### [facility] [address] [place] [address] UR Ben Free ug/L 20.40 ug/L Normal [facility] Comment on above: Performed By: #### I NSULN, DHEAS, VITD, HBA1C, GERMAIN #### [facility] [place] [address] UR Cortisol ug/g firer electric locomotive 9.53 ug/g ELECTRO TECH [facility] Comment on above: Result Comment: (NOT E) Reference Interval: Cortisol ug/g firer electric locomotive Female Prepubertal: Less than 25 ug/g firer electric locomotive 18 years and older: Less than 24 ug/g firer electric locomotive : Less than 59 ug/g firer electric locomotive Male Prepubertal: Less than 25 ug/g firer electric locomotive 18 years and older: Less than 32 ug/g firer electric locomotive Performed By: #### I NSULN, DHEAS, VITD, HBA1C, GERMAIN #### [facility] [address] [place] [address] UR,Creatinine mg/day 1519 mg/d Normal 700-1600 [facility] Comment on above: Performed By: #### I NSULN, DHEAS, VITD, HBA1C, GERMAIN #### [facility] [address] [place] [address] Period / Volumeon 03-29-2020 Collection End Date [facility] Comment on above: Performed By: #### I NSULN, DHEAS, VITD, HBA1C, GERMAIN #### [facility] [address] [place] [phone] Collection End Time 929 [facility] Comment on above: Performed By: #### I NSULN, DHEAS, VITD, HBA1C, GERMAIN #### [facility] [address] [place] [phone] Collection Start Date [facility] Comment on above: Performed By: #### I NSULN, DHEAS, VITD, HBA1C, GERMAIN #### [facility] [address] [place] [phone] Collection Start Time 0930 Normal [facility] Comment on above: Performed By: #### I NSULN, DHEAS, VITD, HBA1C, GERMAIN #### [facility] [address] [place] [phone] Period 24 hr Normal [facility] Comment on above: Performed By: #### I NSULN, DHEAS, VITD, HBA1C, GERMAIN #### [facility] [address] [place] [phone] Volume 710 mL [facility] Comment on above: Performed By: #### I NSULN, DHEAS, VITD, HBA1C, GERMAIN #### [facility] [address] [place] [phone] Vital Signs Date Time Vital Sign Value Performing Clinician Facility 02-27-2022 09:45-0500 Body height 165.1 cm Edie Butterfield Other [facility] Other 02-27-2022 09:45-0500 Body mass index (BMI) [Ratio] 43.26 kg/m2 Edie Butterfield Other [facility] Other 02-27-2022 09:45-0500 Body weight 117.94 kg Edie Butterfield Other [facility] Other 02-27-2022 09:45-0500 Diastolic blood pressure 80 mm[Hg] Edie Butterfield Other [facility] Other 02-27-2022 09:45-0500 SaO2% (BldA) [Mass fraction] 91 % Edie Butterfield Other [facility] Other 02-27-2022 09:45-0500 Systolic blood pressure 120 mm[Hg] Edie Butterfield Other [facility] Other Encounters Encounter Date Encounter Type Care Provider Facility Start: 05-17-2022 End: 05-17-2022 ambulatory Edie Butterfield Other [facility] Other Start: 05-17-2022 Telephone encounter Edie Butterfield [facility] Start: 02-27-2022 End: 02-27-[address] DALLAS MULLINS Facility:[facility] Start: 02-27-2022 Office outpatient vi sit 15 minutes Edie Butterfield [facility] Start: 02-16-2022 Gynecological examin ation normal Edie Butterfield Other [facility] Other Start: 09-06-2021 End: 09-06-[address] DALLAS MULLINS Facility:[facility] Start: 08-30-2021 End: 09-06-[address] DALLAS MULLINS Facility:[facility] Start: 08-28-2021 End: 08-30-[address] KALPANA ESCOBAR Facility:[facility] Start: 08-21-2021 End: 08-26-2021 Evaluation and management of inpatient DR DALLAS MULLINS Facility:[facility] Start: 08-19-2021 End: 08-19-[address] DALLAS MULLINS Facility:[facility] Start: 07-30-2021 End: 07-31-[address] DALLAS MULLINS Facility:[facility] Start: 07-25-2021 End: 07-25-[address] DALLAS MULLINS Facility:[facility] Start: 06-09-2021 End: 06-10-[address] DALLAS MULLINS Facility:[facility] Start: 05-28-2021 End: 05-29-[address] DALLAS MULLINS Facility:[facility] Start: 05-06-2021 End: 05-07-[address] DALLAS MULLINS Facility:[facility] Start: 06-05-2017 End: 06-05-2017 Ambulatory HARVINDER COLLINS Facility:[facility] Procedures Date Procedure Procedure Detail Performing Clinician Start: 08-23-2021 Extraction of Produc ts of Conception, Low Cervical, Open Approach DR DALLAS MULLINS Start: 08-21-2021 Introduction of Horm one into Female Reproductive, Via Natural or Artificial Opening DR DALLAS MULLINS Start: 01-06-2021 Antibody screen Comment on above: Order Comment: Reaso n for Exam Encounter for supervision of normal first , first t Result Comment: PERF ORMED BY: [place] [address] PATHOLOGIST PRESSURE TESTER OPERATOR KELLY WIGGINS M.D. Performed By: #### H IV SCREEN, RPR W RFX, PROG, HBSAG, RUBELLA IGG #### [facility] , #### CUU, CBC #### [facility] [address] H/O: section Edie Scout Other Payers Date Payer Category Payer Unknown [id number] 2.16.84 [id number] 1988 Unknown [id number] 2.16.84 [id number] 1988 Unknown [id number] 2.16.84 [id number] 1988 Unknown [id number] 2.16.84 [id number] 1988 Unknown [id number] 2.16.84 [id number] 1988 Unknown [id number] 2.16.84 [id number] 1988 Unknown [id number] 2.16.84 [id number] 1988 Unknown [id number] 2.16.84 [id number] 1988 Unknown [id number] 2.16.84 [id number] 1988 Unknown [id number] 2.16.84 [id number] 1988 Unknown [id number] 2.16.84 [id number] 1959 Private Health Insurance [id number] 1959 Unknown [id number] 1959 Unknown [id number] Social History Date Type Detail Facility Unknown if ever smoked [facility] Other Sex Assigned At Sex Assigned At Bir th [facility] Other Evaluation note 02-27-2022 Note Date & Type Note Facility 02-27-2022 Evaluation note Encounter Date Diagnosis Assessment Notes Feb, Pain in right wrist (ICD-10 - M25.531) Feb, Pain in left wrist (ICD-10 - M25.532) [facility] Other Clinical Note 08-21-2021 Note Date & Type Note Facility 08-21-2021 Note OPERATIVE NOTE OPERATION DATE: 08/22/2021 PROCEDURE: Primary low transverse section. PREOPERATIVE DIAGNOSIS: 1. Intrauterine at 40 and 5/7 days. 2. Failure to induce, Cervidil x2. POSTOPERATIVE DIAGNOSIS: 1. Intrauterine at 40 and 5/7 days. 2. Failure to induce, Cervidil x2. ANESTHESIA: Spinal with Duramorph. SURGEON: Dallas Mullins D.O. CONCRETE PAVEMENT INSTALLER: REG Marcus URINE OUTPUT: Yellow and clear. BLOOD LOSS: 850 mL. SPECIMEN: Placenta. FINDINGS: A viable female. Apgars 9 at 1, 9 at 5. Weight unknown at this time. PROCEDURE: Patient was taken back to the Operating Room where she was given a spinal anesthesia with Duramorph without difficulty. She was prepped and draped in the normal sterile fashion. A Pfannenstiel skin incision was then made 2 cm above the symphysis pubis and carried down to underlying rectus fascia using a Bovie. The fascia was incised in the midline and extended laterally using Mo scissors. Two Na clamps were placed on the superior aspect of the fascia and dissected off the underlying rectus muscles. The same was performed on the inferior aspect as well. The muscles were then in the midline. Peritoneum was identified and entered bluntly. The peritoneum was then extended superiorly and inferiorly with good visualization of the bladder. The bladder blade was inserted. A low transverse incision was made on the patient's uterus and extended laterally digitally. The was then delivered atraumatically after the bladder blade was removed in the cephalic position. The cord was clamped and cut. Cord blood was obtained. The infant was handed off to awaiting team. The patient's placenta was spontaneously delivered. The uterus was then exteriorized. The uterus was cleared of all clots and debris. The bladder blade was reinserted. The patient's uterine incision was closed using #0 Vicryl in a running lock fashion. Excellent hemostasis was assured. The uterus was then returned to the patient's abdomen. The patient's abdomen was copiously irrigated using warm saline. Peritoneal gutters were cleared of all clots and debris. Again excellent hemostasis was assured. The patient's peritoneum was closed using 3-0 Vicryl in a running fashion. The patient's fascia was closed using #0 Vicryl in a running fashion. The patient's skin was closed using 4-0 Vicryl subcuticularly. The patient tolerated the procedure well. Sponge, lap, and needle counts were correct x2. The patient was taken to the Recovery Room in stable condition. [facility] Signed and Approved by: DR DALLAS MULLINS . 08/26/2021 08:15:00 [facility] Discharge summary note 08-21-2021 Note Date & Type Note Facility 08-21-2021 Note DISCHARGE SUMMARY DISCHARGE DATE: 09/09/2021 PRIMARY DIAGNOSES: 1. Intrauterine at 40 and 5/7 weeks. 2. Failure to induce, Cervidil x2. PROCEDURE: Primary low transverse section. HOSPITAL COURSE: As expected. Please see chart for full details. LABORATORY DATA: Please see chart. COMPLICATIONS: None. DISCHARGE CONDITION: Stable. CONSULTATION: Anesthesia. DISCHARGE INSTRUCTIONS: 1. Diet: Regular. 2. Medications: a. Percocet 5/325 one to two p.o. every 4-6 hours p.r.n. pain. b. Motrin 800 one p.o. every 8 hours p.r.n. pain. 3. Followup in one week. Restrictions: Pelvic rest for 6 weeks. No heavy lifting. May drive when pain free and no longer on narcotics. [facility] Progress note 09-13-2020 Note Date & Type Note Facility 09-13-2020 Note HNO ID: [id number] Author: Maurice Bonilla APRN.CNP Service: ? Author Type: Nurse Practitioner Type: Progress Notes Filed: 09/13/2020 12:02 PM Note Text: AMBULATORY TELEPHONE VISIT Rebecca White has consented to this telephone encounter. Persons Present: patient Chief Complaint/Reason: Lab results HPI: Rebecca had lab work drawn on Sunday after not having a period. She had taken clomid for three cycles with ovulation confirmed on two of those cycles. This past cycle she did not ovulate or get a period. Data Reviewed: Most recent labs Component Latest Ref Rng AND Units 09/10/2020 hCG Quantitative, Blood <5.0 mU/mL <0.6 Progesterone ng/mL 0.2 Estradiol 17B pg/mL 57 Assessment: Secondary amenorrhea [N91.1] Plan: -Provera to induce cycle and then clomid 150mg/TI -Mid luteal p4 to confirm on cycle days 19-23 The following approved medication requests have been transmitted electronically. Signed Prescriptions Disp Refills medroxyPROGESTERone (PROVERA) 10 mg tablet 10 tablet 0 Sig: Take 1 tablet by mouth once daily for 10 days. LIBERTY: No clomiPHENe (SEROPHENE) 50 mg tablet 15 tablet 1 Sig: Take 3 tablets by mouth once daily for 5 days. Menstrual cycle day 3-7 LIBERTY: No Total Time Spent: 5 minutes Maurice Bonilla APRN.CNP September 13, 2020 11:59 AM [facility] Evaluation note Note Date & Type Note Facility Evaluation note No Information [facility] Other History general Narrative - Reported Note Date & Type Note Facility History general Narrative - Reported Type Medical History BMI 40.0-44.9, adult Medical History PCOS (polycystic ovarian syndrom e) Medical History Amenorrhea, secondary Medical History Bronchitis Medical History Depression Surgical History ADRENALECTOMY, TOTAL, LEFT 05/07 014 Hospitalization History C SECTION [facility] Other Summary Purpose Family History No Family History Records FoundNo Family History Records FoundNo Family History Records FoundNo Family History Records Found Advance Directives No Advanced Directives Records FoundNo Advanced Directives Records FoundNo Advanced Directives Records FoundNo Advanced Directives Records Found Reason for Referral Reason 03/16/22 lena off ice Diagnosis 1 Pain in right wrist (M25.531) Referral Organization [facility] naveen Referring Provider First Name Edie Referring Provider Last Name Scout Referring Provider Specialty Family Medi cine Referred Organization [facility] Referred Provider [place] Referred Address ,[place], [place],[address] Referred Provider Specialty Orthopedic S urgery Referral Priority Routine Referral Appointment Date 2022-03-16 General Notes Melissa Douglas 11:10:18 AM >received today, waiting for notes to be locked to fax Melissa Douglas 03/01/2022 09:28:43 AM >notes locked and referral faxed P2P Melissa Douglas 03/08/2022 08:43:38 AM >faxed first attempt letter Melissa Douglas 03/08/2022 03:28:22 PM >received fax and referral was received but not scheduled Melissa Douglas 03/15/2022 08:55:29 AM >faxed second attempt letter Melissa Douglas 03/16/2022 10:48:19 AM >received fax with appt date and time Melissa Douglas 03/17/2022 01:40:48 PM >faxed first request for consult notes Melissa Douglas 03/17/2022 04:56:02 PM >received fax back that office note is not locked yet Melissa Douglas 03/23/2022 04:08:46 PM >faxed second request for consult notes Melissa Douglas 03/27/2022 04:36:50 PM >waiting for notes to be locked Melissa Douglas 04/04/2022 12:17:29 PM >notes in chart and reviewed. closing referral at this time. Additional Source Comments INFORMATION SOURCE (unrecogn ized section and content) DATE CREATED AUTHOR 07/26/2017 [facility] DATE CREATED AUTHOR AUTHOR'S ORGANIZ ATION 02/24/2021 [facility] DATE CREATED AUTHOR AUTHOR'S ORGANIZ ATION 03/19/[address] [facility] DATE CREATED AUTHOR AUTHOR'S ORGANIZ ATION 03/04/2022 [facility] REASON FOR VISIT (unrecogniz ed section and content) Check upRefill FOR RECORDS PERTAINING TO PATIENTS WHO ARE OR HAVE BEEN ENROLLED IN A CHEMICAL DEPENDENCY/SUBSTANCEABUSE PROGRAM, SOME INFORMATION MAY BE OMITTED. This clinical summary was aggregated from multiple sources. Caution should be exercised in using it in the provision of clinical care. This summary normalizes information from multiple sources, and as a consequence, information in this document may materially change the coding, format and clinical context of patient data. In addition, data may be omitted in some cases. CLINICAL DECISIONS SHOULD BE BASED ON THE PRIMARY CLINICAL RECORDS. [facility]. provides no warranty or guarantee of the accuracy or completeness of information in this document.
[2023-03-03 10:10] LABS: Estimated Average Glucose 117 mg/dL; Glycohemoglobin A1C 5.7 % (4.5-6.2)
[2023-03-03 10:21] LABS: Basophils Absolute Auto 0.1 10^3/uL (0.0-0.1); Basophils Percent Auto 0.7 % (0.2-2.0); Eosinophils Absolute Auto 0.2 10^3/uL (0.0-0.7); Eosinophils Percent Auto 2.7 % (0.9-7.0); Hematocrit 41.4 % (36.0-48.0); Hemoglobin 13.1 g/dL (12.0-16.0); Immature Granulocytes Abs Auto 0.03 10^3/uL (0.00-0.03); Immature Granulocytes Pct Auto 0.4 % (0.0-0.5); Lymphocytes Absolute Auto 2.8 10^3/uL (1.2-3.8); Mean Corpuscular HGB Conc 31.6 g/dL (29.9-35.2); Mean Corpuscular Hemoglobin 27.8 pg (26.7-34.0); Mean Corpuscular Volume 87.7 fL (81.0-99.0); Mean Platelet Volume 9.6 fL (9.5-13.5); Monocytes Absolute Auto 0.5 10^3/uL (0.3-0.8); Neutrophils Absolute Auto 3.6 10^3/uL (1.4-6.5); Neutrophils Percent Auto 50.2 % (43.0-75.0); Platelet Count 340 10^3/uL (150-450); Red Blood Count 4.72 10^6/uL (4.20-5.40); Red Cell Distribution Width 14.1 % (11.0-15.0); White Blood Count 7.2 10^3/uL (4.0-11.0)
[2023-03-03 16:45] LABS: Alanine Aminotransferase 47 U/L (14-59); Albumin Globulin Ratio 0.7; Albumin Level 3.1 g/dL (3.4-5.0); Alkaline Phosphatase 70 U/L (46-116); Anion Gap 12.2; Aspartate Amino Transferase 32 U/L (15-37); BUN Creatinine Ratio 13.3; Bilirubin Total 0.3 mg/dL (0.2-1.0); Calcium 8.7 mg/dL (8.5-10.1); Carbon Dioxide 27.8 mmol/L (21.0-32.0); Chloride 104 mmol/L (98-107); Chol HDL Ratio 4.8; Cholesterol 232 mg/dL (<=200); Estimated GFR (African America >60 (>=60); Estimated GFR (Non-African Ame >60 (>=60); Globulin 4.2 g/dL; Glucose 84 mg/dL (74-106); HDL Cholesterol 48 mg/dL (40-60); Sodium 140 mmol/L (136-145); Total Protein 7.3 g/dL (6.4-8.2); Triglycerides 148 mg/dL (<=150); VLDL CHOLESTEROL 29.6 mg/dL
== END 2023-03-03 09:05 | disposition home or self-care (01) ==
LOC: LAB 09:04
PROVIDERS: Visit Provider Family Medicine
DX: Z00.00 Encounter for general adult medical examination without abnormal findings (principal); E28.2 Polycystic ovarian syndrome
CPT/HCPCS: 36415; 80053; 80061; 83036; 85025

== ENCOUNTER 2023-03-05 21:04 | Outpatient (REF) | payer OTHER, SELFPAY ==
--- OUTSIDE RECORDS SUMMARY | 2023-03-05 21:08 | XMS_ITS | CCD ---
Author Name Unknown Address [address] [facility] [address] [place] [address] Organization [facility] Care Team Providers Care Grease And Tallow Pumper Name Role Phone HARVINDER COLLINS Unavailable Unavailable HARVINDER COLLINS Unavailable Unavailable MISC, DOCTOR Unavailable Unavailable HARVINDER COLLINS Unavailable Unavailable SHARON, DR HAYNES Attending Unavailable BUTTERFIELD, DR EDIE Francois Primary Care Unavailable [place], DR KULWINDER Lin Consulting Unavailable SHARON, DR [...] BUTTERFIELD, DR EDIE Francois Primary Care Unavailable RUIB, DR KULWINDER Lin Consulting Unavailable SHARON, DR HAYNES Admitting Unavailable SHARON, DR HAYNES Consulting Unavailable SHARON, DR HAYNES Consulting Unavailable SHARON, DR HAYNES Attending Unavailable SHARON, DR HAYNES Admitting Unavailable SCOUT, DR EDIE Francois Primary Care Unavailable SHARON, DR HAYNES Attending Unavailable SHARON, DR HAYNES Admitting Unavailable BUTTERFIELD, DR EDIE Francois Primary Care Unavailable RUBI, DR KULWINDER Lin Consulting Unavailable SHARON, DR HAYNES Consulting Unavailable SHARON, DR HAYNES Attending Unavailable BUTTERFIELD, DR EDIE Francois Primary Care Unavailable SHARON, DR HAYNES Admitting Unavailable SHARON, DR HAYNES Consulting Unavailable SHARON, DR HAYNES Attending Unavailable SHARON, DR HAYNES Admitting Unavailable DR EDIE BUTTERFIELD Primary Care Unavailable SHARON, DR HAYNES Consulting Unavailable SHARON, DR HAYNES Procedure Practitioner UnavailMARCK Michele Consulting Unavailable SHARON, DR HAYNES Attending Unavailable SHARON, DR HAYNES Admitting Unavailable DR EDIE BUTTERFIELD Primary Care Unavailable WEST, DR KULWINDER Lin Consulting Unavailable SHARON, DR HAYNES Consulting Unavailable Edie Butterfield Unavailable DALLAS MULLINS Attending Unavailable Medications Current Medications Medication Drug Class(es) [...] 2: 30 to 65on 03-03-2022 . . [facility] Comment on above: Result Comment: Perf ormed at: WB Performed By: #### [id number] #### [facility] [address] [address] [address] Roc Coulter Age Gdln ACOG Testing [facility] Comment on above: Performed By: #### [id number] #### [facility] [address] [address] [address] Roc Coulter DIAGNOSIS: Comment [facility] Comment on above: Result Comment: NEGA TIVE FOR INTRAEPITHELIAL LESION OR MALIGNANCY. Performed at: WB Performed By: #### [id number] #### [facility] [address] [address] [address] Roc Coulter HPV Aptima Negative Normal Negative [facility] Comment on above: Result Comment: This nucleic acid amplification test detects fourteen high-risk HPV types (16,18,31,33,35,39,45,51,52,56,58,59,66,68) without differentiation. Performed at: =G Performed By: #### [id number] #### [facility] [address] [address] [address] oRc Coulter HPV Genotype Reflex Comment Normal [facility] Comment on above: Result Comment: Crit eria not met, HPV Genotype not performed. Performed at: WB Performed By: #### [id number] #### [facility] [address] [place] [address] Dr. Roc Coulter Methodology: Comment Normal [facility] Comment on above: Result Comment: This liquid based ThinPrep(R) pap test was screened with the use of an image guided system. Performed at: WB Performed By: #### [id number] #### [facility] [address] [place] [address] Dr. Roc Coulter Note: Comment Normal [facility] Comment on above: Result Comment: The Pap smear is a screening test designed to aid in the detection of premalignant and malignant conditions of the uterine cervix. It is not a diagnostic procedure and should not be used as the sole means of detecting cervical cancer. Both false-positive and false-negative reports do occur. . Performed at: WB Performed By: #### [id number] #### [facility] [address] [place] [address] Dr. Roc Coulter Performed by: Comment Normal [facility] Comment on above: Result Comment: Lina Quach, Medical Office Technician (ASCP) Performed at: WB Performed By: #### [id number] #### [facility] [address] [place] [address] Dr. Roc Coulter Specimen adequacy: Comment Normal [facility] Comment on above: Result Comment: Sati sfactory for evaluation. Endocervical and/or squamous metaplastic cells (endocervical component) are present. Performed at: WB Performed By: #### [id number] #### [facility] [address] [place] [address] Dr. Roc Coulter CBC AUTO DIFFon 08-24-2021 BASO # 0.0 103/ul Normal 0.0-0.1 [facility] Comment on above: Performed By: #### C BC #### [facility] [address] [place] [address] Dr. Roc Coulter Basophils/100 WBC (Bld) 0.3 % Normal 0.2-2.0 [facility] Comment on above: Performed By: #### C BC #### [facility] [address] [place] [address] Dr. Roc Coulter EO # 0.1 103/ul Normal 0.0-0.7 [facility] Comment on above: Performed By: #### C BC #### [facility] [address] [place] [address] Dr. Roc Coulter Eosinophils/100 WBC (Bld) 1.0 % Normal 0.9-7.0 [facility] Comment on above: Performed By: #### C BC #### [facility] [address] [place] [address] Dr. Roc Coulter Erythrocyte distribution width (RBC) [Ratio] 16.6 % Critically high 11.0-15.0 [facility] Comment on above: Performed By: #### C BC #### [facility] [address] [place] [address] Dr. Roc Coulter Hematocrit (Bld) [Volume fraction] 30.2 % Critically low 36.0-48.0 [facility] Comment on above: Performed By: #### C BC #### [facility] [address] [place] [address] Dr. Roc Coulter Hemoglobin (Bld) [Mass/Vol] 9.6 g/dL Critically low 12.0-16.0 [facility] Comment on above: Performed By: #### C BC #### [facility] [address] [place] [address] Dr. Roc Coulter IG # 0.10 10e3/ul Critically high 0.00-0.03 [facility] Comment on above: Performed By: #### C BC #### [facility] [address] [place] [address] Dr. Roc Coulter IG % 0.7 % Critically high 0.0-0.5 [facility] Comment on above: Performed By: #### C BC #### [facility] [address] [place] [address] Dr. Roc Coulter LYMPH # 2.5 103/ul Normal 1.2-3.8 [facility] Comment on above: Performed By: #### C BC #### [facility] [address] [place] [address] Dr. Roc Coulter Lymphocytes/100 WBC (Bld) 18.6 % Critically low 20.5-60.0 [facility] Comment on above: Performed By: #### C BC #### [facility] [address] [place] [address] Dr. Roc Coulter MANUAL DIFF REQ NO Normal [facility] Comment on above: Performed By: #### C BC #### [facility] [address] [place] [address] Dr. Roc Coulter MCH (RBC) [Entitic mass] 27.9 pg Normal 26.7-34.0 [facility] Comment on above: Performed By: #### C BC #### [facility] [address] [place] [address] Dr. Roc Coulter MCHC (RBC) [Mass/Vol] 31.8 g/dL Normal 29.9-35.2 [facility] Comment on above: Performed By: #### C BC #### [facility] [address] [place] [address] Dr. Roc Coulter MCV (RBC) [Entitic vol] 87.8 fL Normal 81.0-99.0 [facility] Comment on above: Performed By: #### C BC #### [facility] [address] [place] [address] Dr. Roc Coulter MONO # 0.9 103/ul Critically high 0.3-0.8 [facility] Comment on above: Performed By: #### C BC #### [facility] [address] [place] [address] Dr. Roc Coulter Monocytes/100 WBC (Bld) 6.7 % Normal 1.7-12.0 [facility] Comment on above: Performed By: #### C BC #### [facility] [address] [place] [address] Dr. Roc Coulter NEUT # 9.8 103/ul Critically high 1.4-6.5 [facility] Comment on above: Performed By: #### C BC #### [facility] [address] [place] [address] Dr. Roc Coulter Neutrophils/100 WBC (Bld) 72.7 % Normal 43.0-75.0 [facility] Comment on above: Performed By: #### C BC #### [facility] [address] [place] [address] Dr. Roc Coulter Platelet mean volume (Bld) [Entitic vol] 10.4 fL Normal 9.5-13.5 [facility] Comment on above: Performed By: #### C BC #### [facility] [address] [place] [address] Dr. Roc Coulter PLT 228 103/ul Normal 150-450 [facility] Comment on above: Performed By: #### C BC #### [facility] [address] [place] [address] Dr. Roc Coulter RBC 3.44 106/ul Critically low 4.20-5.40 [facility] Comment on above: Performed By: #### C BC #### [facility] [address] [place] [address] Dr. Roc Coulter WBC 13.4 103/ul Critically high 4.0-11.0 [facility] Comment on above: Performed By: #### C BC #### [facility] [address] [place] [address] Dr. Roc Coulter CBC AUTO DIFFon 08-21-2021 BASO # 0.0 103/ul Normal 0.0-0.1 [facility] Comment on above: Performed By: #### C BC ####[facility] [address] [address]Dr. Roc Coulter Basophils/100 WBC (Bld) 0.5 % Normal 0.2-2.0 [facility] Comment on above: Performed By: #### C BC ####[facility] [address] [place], [place] [address]Dr. Roc Coulter EO # 0.1 103/ul Normal 0.0-0.7 [facility] Comment on above: Performed By: #### C BC ####[facility] [address] [place], [place] [address]Dr. Roc Coulter Eosinophils/100 WBC (Bld) 1.1 % Normal 0.9-7.0 [facility] Comment on above: Performed By: #### C BC ####[facility] [address] [place], [place] [address]Dr. Roc Yfn Erythrocyte distribution width (RBC) [Ratio] 16.1 % Critically high 11.0-15.0 [facility] Comment on above: Performed By: #### C BC ####[facility] [address] [place], [place] [address]Dr. Roc Coulter Hematocrit (Bld) [Volume fraction] 36.0 % Normal 36.0-48.0 [facility] Comment on above: Performed By: #### C BC ####[facility] [address] [place], [place] [address]Dr. Roc Coulter Hemoglobin (Bld) [Mass/Vol] 11.7 g/dL Critically low 12.0-16.0 [facility] Comment on above: Performed By: #### C BC ####[facility] [address] [place], [place] [address]Dr. Roc Coulter IG # 0.08 10e3/ul Critically high 0.00-0.03 [facility] Comment on above: Performed By: #### C BC ####[facility] [address] [address]Dr. Roc Coulter IG % 0.9 % Critically high 0.0-0.5 [facility] Comment on above: Performed By: #### C BC ####[facility] [address] [address]Dr. Roc Coulter LYMPH # 1.8 103/ul Normal 1.2-3.8 [facility] Comment on above: Performed By: #### C BC ####[facility] [address] [place], [place] [address]Dr. Roc Coulter Lymphocytes/100 WBC (Bld) 20.8 % Normal 20.5-60.0 [facility] Comment on above: Performed By: #### C BC ####[facility] [address] [place], [place] [address]Dr. Roc Coulter MANUAL DIFF REQ NO Normal [facility] Comment on above: Performed By: #### C BC ####[facility] [address] [place], [place] [address]Dr. Octaviaflorence Coulter MCH (RBC) [Entitic mass] 28.0 pg Normal 26.7-34.0 [facility] Comment on above: Performed By: #### C BC ####[facility] [address] [place], [place] [address]Dr. Roc Yfn MCHC (RBC) [Mass/Vol] 32.5 g/dL Normal 29.9-35.2 [facility] Comment on above: Performed By: #### C BC ####[facility] [address] [place], [place] [address]DrWendy Coulter MCV (RBC) [Entitic vol] 86.1 fL Normal 81.0-99.0 [facility] Comment on above: Performed By: #### C BC ####[facility] [address] [place], [place] [address]DrWendy Coulter MONO # 0.8 103/ul Normal 0.3-0.8 [facility] Comment on above: Performed By: #### C BC ####[facility] [address] [place], [place] [address]Dr. Roc Coulter Monocytes/100 WBC (Bld) 9.6 % Normal 1.7-12.0 [facility] Comment on above: Performed By: #### C BC ####[facility] [address] [address]Dr. Roc Coulter NEUT # 5.9 103/ul Normal 1.4-6.5 [facility] Comment on above: Performed By: #### C BC ####[facility] [address] [address]Dr. Roc Coulter Neutrophils/100 WBC (Bld) 67.1 % Normal 43.0-75.0 [facility] Comment on above: Performed By: #### C BC ####[facility] [address] [address]Dr. Roc Coulter Platelet mean volume (Bld) [Entitic vol] 10.6 fL Normal 9.5-13.5 [facility] Comment on above: Performed By: #### C BC ####[facility] [address] [address]Dr. Roc Coulter PLT 235 103/ul Normal 150-450 [facility] Comment on above: Performed By: #### C BC ####[facility] [address] [address]Dr. Roc Coulter RBC 4.18 106/ul Critically low 4.20-5.40 [facility] Comment on above: Performed By: #### C BC ####[facility] [address] [address]Dr. Roc Coulter WBC 8.8 103/ul Normal 4.0-11.0 [facility] Comment on above: Performed By: #### C BC ####[facility] [address] [address]Dr. Roc Coulter [facility]on 08[facility]05 SARS-CoV-2 (COVID-19) RNA NIMA+probe Ql (Unsp spec) Not detected Normal NOT DETECTED [facility] Comment on above: Result Comment: When diagnostic [...] for this test is supported by the Computer Aided Drafter of Health and Human Service's declaration that [...] used). Performed By: #### C VDTBH #### [facility] [address] [place] [address] Dr. Roc Coulter DRUG SCREEN RAPID (URINE)on 08-21-2021 AMP Negative Normal NEGATIVE [facility] Comment on above: Performed By: #### D RUGRPD #### [facility] [address] [place] [address] Dr. Roc Coulter BAR Negative Normal NEGATIVE [facility] Comment on above: Performed By: #### D RUGRPD #### [facility] [address] [place] [address] Dr. Roc Coulter BUP Negative Normal NEGATIVE [facility] Comment on above: Performed By: #### D RUGRPD #### [facility] [address] [place] [address] Dr. Roc Coulter BZO Negative Normal NEGATIVE [facility] Comment on above: Performed By: #### D RUGRPD #### [facility] [address] [place] [address] Dr. Roc Coulter SHAYY Negative Normal NEGATIVE [facility] Comment on above: Performed By: #### D RUGRPD #### [facility] [address] [place] [address] Dr. Roc Coulter CUT-OFFS SEE BELOW Normal [facility] Comment on above: Result Comment: AMP (Amphetamine): 500ng/mL, BAR (Barbituates): 200 ng/mL, BZO (Benzodiazepines): 150 ng/mL, BUP (Buprenorphine): 10 ng/mL, SHAYY (Cocaine): 150 ng/mL, mAMP (Methamphetamine): 500 ng/mL, MTD (Methadone): 200 ng/mL, OPI (Opiates): 100 ng/mL, OXY (Oxycodone): 100 ng/mL, PCP (Phencyclidine): 25 ng/mL, PPX (Propoxyphene): 300 ng/mL, THC (Cannabinoids): 50 ng/mL, TCA (Trycyclic Antidepressants): 300 ng/mL Performed By: #### D RUGRPD #### [facility] [address] [place] [address] Dr. Roc Coulter DRUG CUT HEADER DRUG CLASS TEST SYST EM CUT-OFF CONCENTRATIONS ARE FOLLOWS: Normal [facility] Comment on above: Performed By: #### D RUGRPD #### [facility] [address] [place] [address] Dr. Roc Coulter mAMP Negative Normal NEGATIVE [facility] Comment on above: Performed By: #### D RUGRPD #### [facility] [address] [place] [address] Dr. Roc Coulter MTD Negative Normal NEGATIVE [facility] Comment on above: Performed By: #### D RUGRPD #### [facility] [address] [place] [address] Dr. Roc Coulter OPI Negative Normal NEGATIVE [facility] Comment on above: Performed By: #### D RUGRPD #### [facility] [address] [place] [address] Dr. Roc Coulter OXY Negative Normal NEGATIVE [facility] Comment on above: Performed By: #### D RUGRPD #### [facility] [address] [place] [address] Dr. Roc Coulter PCP Negative Normal NEGATIVE [facility] Comment on above: Performed By: #### D RUGRPD #### [facility] [address] [place] [address] Dr. Roc Coulter PPX Negative Normal NEGATIVE [facility] Comment on above: Performed By: #### D RUGRPD #### [facility] [address] [address] [address] Roc Coulter TCA Negative Normal NEGATIVE [facility] Comment on above: Performed By: #### D RUGRPD #### [facility] [address] [place], [place] [address] Dr. Roc Coulter THC Negative Normal NEGATIVE [facility] Comment on above: Performed By: #### D RUGRPD #### [facility] [address] [address] [address] Roc Coulter TYPE AND SCREENon 08-21-2021 TYPE AND SCREEN Negative Normal [facility] Comment on above: Performed By: #### T NS ####[facility] [address] [place], [place] [address]DxDr. Roc Coulter US PREG BIOPHY W NON [...] KULWINDER VENEGAS Date: 2021-08-19 16:43 Normal [facility] US PREG GROWTHon 08-01-2021 US PREG GROWTH [...] Age by EDC: 37 weeks 2 days LALO by EDC: 08/18/2021 Age by US: 37 weeks 5 days LALO by US: 08/15/2021 IMPRESSION: Abdominal circumference at the 96th percentile, otherwise normal interval growth Electronically authenticated by: KULWINDER VENEGAS Date: 2021-08-01 07:24 Normal [facility] GROUP B STREP CULTUREon 07-07 S. agalactiae Ag Ql (Unsp spec) Culture Observations: NEGATIVE FOR GROUP B STREPTOCOCCUS. Normal [facility] Comment on above: Performed By: #### G BSCX ####[facility] [address] [place], [place] [address]TpWendy Coulter US PREG GROWTHon 06-09-2021 US PREG [...] KULWINDER VENEGAS Date: 2021-06-09 16:45 Normal [facility] US PREG INCOMPLETE ANATOMYon 06-09-2021 US PREG INCOMPLETE ANATOMY EXAMINATION: US PREG INCOMPLETE ANATOMY HISTORY: screening COMPARISON: 05/06/2021 FINDINGS: Normal visualized anatomy: RVOT, LVOT, kidneys, spine, orbits Amniotic fluid index: 19.1 cm, normal Heart rate: 153 bpm IMPRESSION: Normal observed anatomy Electronically authenticated by: KULWINDER VENEGAS Date: 2021-06-09 16:46 Normal [facility] GTT 3 HR PREGon 05-28-2021 Glucose [Mass/Vol] 83 mg/dL Normal 74-106 [facility] Comment on above: Performed By: #### G TT3P #### [facility] [address] [place] [address] Dr. Roc Coulter Glucose [Mass/Vol] 176 mg/dL Normal [facility] Comment on above: Performed By: #### G TT3P #### [facility] [address] [place] [address] Dr. Roc Coulter Glucose [Mass/Vol] 125 mg/dL Normal [facility] Comment on above: Performed By: #### G TT3P #### [facility] [address] [place] [address] Dr. Roc Coulter Glucose [Mass/Vol] 97 mg/dL Normal [facility] Comment on above: Performed By: #### G TT3P #### [facility] [address] [place] [address] Dr. Roc Coulter GLUCOSE - 1HRon 05-06-2021 Glucose [Mass/Vol] 173 mg/dL Critically high 74-106 [facility] Comment on above: Performed By: #### G LU1HR #### [facility] [address] [place] [address] Dr. Roc Coulter HEMOGRAM AND PLATELon 2021 Hematocrit (Bld) [Volume fraction] 34.5 % Critically low 36.0-48.0 [facility] Comment on above: Performed By: #### H H #### [facility] [address] [place] [address] Dr. Roc Coulter Hemoglobin (Bld) [Mass/Vol] 10.8 g/dL Critically low 12.0-16.0 [facility] Comment on above: Performed By: #### H H #### [facility] [address] [address] [address] Roc Coulter MCH (RBC) [Entitic mass] 27.9 pg Normal 26.7-34.0 [facility] Comment on above: Performed By: #### H H #### [facility] [address] [address] [address] Roc Coulter MCHC (RBC) [Mass/Vol] 31.3 g/dL Normal 29.9-35.2 [facility] Comment on above: Performed By: #### H H #### [facility] [address] [address] [address] Roc Coulter MCV (RBC) [Entitic vol] 89.1 fL Normal 81.0-99.0 [facility] Comment on above: Performed By: #### H H #### [facility] [address] [address] [address] Roc Coulter PLT 298 103/ul Normal 150-450 [facility] Comment on above: Performed By: #### H H #### [facility] [address] [address] [address] Roc Coulter RBC 3.87 106/ul Critically low 4.20-5.40 [facility] Comment on above: Performed By: #### H H #### [facility] [address] [address] [address] Roc Coulter WBC 8.1 103/ul Normal 4.0-11.0 [facility] Comment on above: Performed By: #### H H #### [facility] [address] [address] [address] Roc Coulter US PREG ANATOMY SINGLEon [...] Age by EDC: 25 weeks 1 days ALLO by EDC: 08/18/2021 Age by current US: 25 weeks 2 days LALO by current US: 08/17/2021 IMPRESSION: Limited visualization is detailed above Subjectively low amniotic fluid volume, consider amniotic fluid index follow-up for quantitative measurements Low lying placenta *Reference: [employer] Practice Guideline for the performance of Obstetric Ultrasound Examinations, November 05, 2006. Electronically authenticated by: KULWINDER VENEGAS Date: 2021-05-06 16:06 Normal [facility] Pap, GC/Chlam rfx HPV HRon 0 02-11-2021 PAP Chlamydia NIMA Negative Normal Negative [facility] Comment on above: Order Comment: Reaso n for Exam Cervical cancer screening;Encntr screen for infections w sex Comment cx/ecc, - run gc/chlam on pap Specimen Comment: [id number] Performed By: #### P ILLAR LIPID, PILLAR CMP, PILLAR CBC, PILLAR TSH #### [facility] [address] PAP Gonococcus Negative Normal Negative [facility] Comment on above: Order Comment: Reaso n for Exam Cervical cancer screening;Encntr screen for infections w sex Comment cx/ecc, - run gc/chlam on pap Specimen Comment: [id number] Result Comment: Perf ormed at: WB - [facility] [address] [facility], [place], [place] [id number] Welt Stitcher: Anaid Hercules MD, Phone: [phone] Performed at: =G - [facility] [address] [place], [place] [id number] Welt Stitcher: Anaid Hercules MD, Phone: [phone] PERFORMED BY: [facility] [address] [place] [address] PATHOLOGIST ETHANOL QUALITY LEADER KELLY WIGGINS M.D. Performed By: #### P ILLAR LIPID, PILLAR CMP, PILLAR CBC, PILLAR TSH #### [facility] [address] Pap Image Guided Note Normal . [facility] Comment on above: Order Comment: Reaso n for Exam Cervical cancer screening;Encntr screen for infections w sex Comment cx/ecc, - run gc/chlam on pap Specimen Comment: [id number] Result Comment: TEST S RESULT FLAG UNITS REF RANGE LAB Clinician Provided Cytology Information No. of containers..01 ThinPrep Vial DIAGNOSIS: 01 NEGATIVE FOR INTRAEPITHELIAL LESION OR MALIGNANCY. Specimen adequacy: 01 Satisfactory for evaluation. Endocervical and/or squamous metaplastic cells (endocervical component) are present. Performed by: Pradip Blunt, Medical Office Technician (ASCP) . 01 Note: Note 01 The [...] High,A-Abnormal,AA-Critical Abnormal Performed at: 01 [facility] [address] [place] [address] Anaid Hercules MD, Performed By: #### P ILLAR LIPID, PILLAR CMP, PILLAR CBC, PILLAR TSH #### [facility] [address] Complete Blood Count Auto Di ffon 01-06-2021 Basophils (Bld) [#/Vol] 0.1 10*3/uL Normal 0.0-0.2 [facility] Comment on above: Order Comment: Reaso n for Exam Encounter for supervision of normal first , first t Result Comment: PERF ORMED BY: [place] [address] PATHOLOGIST ETHANOL QUALITY LEADER KELLY WIGGINS M.D. Performed By: #### H IV SCREEN, RPR W RFX, PROG, HBSAG, RUBELLA IGG #### [facility] , #### CUU, CBC #### [facility] [address] Basophils/100 WBC (Bld) 0.8 % Normal . [facility] Comment on above: Order Comment: Reaso n for Exam Encounter for supervision of normal first , first t Performed By: #### H IV SCREEN, RPR W RFX, PROG, HBSAG, RUBELLA IGG #### [facility] , #### CUU, CBC #### [address] Eosinophils (Bld) [#/Vol] 0.2 10*3/uL Normal 0.0-0.45 [facility] Comment on above: Order Comment: Reaso n for Exam Encounter for supervision of normal first , first t Performed By: #### H IV SCREEN, RPR W RFX, PROG, HBSAG, RUBELLA IGG #### [facility] , #### CUU, CBC #### [address] Eosinophils/100 WBC (Bld) 1.7 % Normal . [facility] Comment on above: Order Comment: Reaso n for Exam Encounter for supervision of normal first , first t Performed By: #### H IV SCREEN, RPR W RFX, PROG, HBSAG, RUBELLA IGG #### [facility] , #### CUU, CBC #### [address] Erythrocyte distribution width (RBC) [Ratio] 14.1 % Normal 11.9-15.3 [facility] Comment on above: Order Comment: Reaso n for Exam Encounter for supervision of normal first , first t Performed By: #### H IV SCREEN, RPR W RFX, PROG, HBSAG, RUBELLA IGG #### [facility] , #### CUU, CBC #### [address] Hematocrit (Bld) [Volume fraction] 39.3 % Normal 34.0-46.4 [facility] Comment on above: Order Comment: Reaso n for Exam Encounter for supervision of normal first , first t Performed By: #### H IV SCREEN, RPR W RFX, PROG, HBSAG, RUBELLA IGG #### [facility] , #### CUU, CBC #### [address] Hemoglobin (Bld) [Mass/Vol] 13.2 g/dL Normal 11.8-15.4 [facility] Comment on above: Order Comment: Reaso n for Exam Encounter for supervision of normal first , first t Performed By: #### H IV SCREEN, RPR W RFX, PROG, HBSAG, RUBELLA IGG #### [facility] , #### CUU, CBC #### [address] Lymphocytes (Bld) [#/Vol] 2.6 10*3/uL Normal 1.00-4.8 [facility] Comment on above: Order Comment: Reaso n for Exam Encounter for supervision of normal first , first t Performed By: #### H IV SCREEN, RPR W RFX, PROG, HBSAG, RUBELLA IGG #### [facility] , #### CUU, CBC #### [address] Lymphocytes/100 WBC (Bld) 26.0 % Normal . [facility] Comment on above: Order Comment: Reaso n for Exam Encounter for supervision of normal first , first t Performed By: #### H IV SCREEN, RPR W RFX, PROG, HBSAG, RUBELLA IGG #### [facility] , #### CUU, CBC #### [address] MCH (RBC) [Entitic mass] 29.2 pg Normal 24.7-34.3 [facility] Comment on above: Order Comment: Reaso n for Exam Encounter for supervision of normal first , first t Performed By: #### H IV SCREEN, RPR W RFX, PROG, HBSAG, RUBELLA IGG #### [facility] , #### CUU, CBC #### [facility] [address] [place] [address] MCV (RBC) [Entitic vol] 86.9 fL Normal 80-100 [facility] Comment on above: Order Comment: Reaso n for Exam Encounter for supervision of normal first , first t Performed By: #### H IV SCREEN, RPR W RFX, PROG, HBSAG, RUBELLA IGG #### [facility] , #### CUU, CBC #### [facility] [address] [place] [address] Mean Corpuscular HGB Conc 33.6 g/dL Normal 32.0-35.0 [facility] Comment on above: Order Comment: Reaso n for Exam Encounter for supervision of normal first , first t Performed By: #### H IV SCREEN, RPR W RFX, PROG, HBSAG, RUBELLA IGG #### [facility] , #### CUU, CBC #### [address] Monocytes (Bld) [#/Vol] 0.6 10*3/uL Normal 0.0-0.8 [facility] Comment on above: Order Comment: Reaso n for Exam Encounter for supervision of normal first , first t Performed By: #### H IV SCREEN, RPR W RFX, PROG, HBSAG, RUBELLA IGG #### [facility] , #### CUU, CBC #### [address] Monocytes/100 WBC (Bld) 6.0 % Normal . [facility] Comment on above: Order Comment: Reaso n for Exam Encounter for supervision of normal first , first t Performed By: #### H IV SCREEN, RPR W RFX, PROG, HBSAG, RUBELLA IGG #### [facility] , #### CUU, CBC #### [facility] [address] [place] [address] Neutrophils (Bld) [#/Vol] 6.6 10*3/uL Normal 1.8-7.7 [facility] Comment on above: Order Comment: Reaso n for Exam Encounter for supervision of normal first , first t Performed By: #### H IV SCREEN, RPR W RFX, PROG, HBSAG, RUBELLA IGG #### [facility] , #### CUU, CBC #### [facility] [address] [place] [address] Neutrophils/100 WBC (Bld) 65.5 % Normal . [facility] Comment on above: Order Comment: Reaso n for Exam Encounter for supervision of normal first , first t Performed By: #### H IV SCREEN, RPR W RFX, PROG, HBSAG, RUBELLA IGG #### [facility] , #### CUU, CBC #### [address] Nucleated RBC/100 WBC (Bld) [Ratio] 0.1 % Normal 0-0.5 [facility] Comment on above: Order Comment: Reaso n for Exam Encounter for supervision of normal first , first t Performed By: #### H IV SCREEN, RPR W RFX, PROG, HBSAG, RUBELLA IGG #### [facility] , #### CUU, CBC #### [address] Platelet mean volume (Bld) [Entitic vol] 8.1 fL Normal 6.3-10.7 [facility] Comment on above: Order Comment: Reaso n for Exam Encounter for supervision of normal first , first t Performed By: #### H IV SCREEN, RPR W RFX, PROG, HBSAG, RUBELLA IGG #### [facility] , #### CUU, CBC #### [facility] [address] [place] [address] [place] Platelets (Bld) [#/Vol] 325 10*3/uL Normal 150-450 [facility] Comment on above: Order Comment: Reaso n for Exam Encounter for supervision of normal first , first t Performed By: #### H IV SCREEN, RPR W RFX, PROG, HBSAG, RUBELLA IGG #### [facility] , #### CUU, CBC #### [address] RBC (Bld) [#/Vol] 4.52 10*6/uL Normal 3.60-5.00 [facility] Comment on above: Order Comment: Reaso n for Exam Encounter for supervision of normal first , first t Performed By: #### H IV SCREEN, RPR W RFX, PROG, HBSAG, RUBELLA IGG #### [facility] , #### CUU, CBC #### [facility] [address] [place] [address] WBC (Bld) [#/Vol] 10.1 10*3/uL Normal 4.5-11.0 [facility] Comment on above: Order Comment: Reaso n for Exam Encounter for supervision of normal first , first t Performed By: #### H IV SCREEN, RPR W RFX, PROG, HBSAG, RUBELLA IGG #### [facility] , #### CUU, CBC #### [facility] [address] [place] [address] HIV 1/O/2 Antigen/Antibodyon 01-06-2021 HIV Screen 4th Generation Non-Reactive Normal Non Reactive [facility] Comment on above: Order Comment: Reaso n for Exam Encounter for supervision of normal first , first t Performed By: #### P ILLAR LIPID, PILLAR CMP, PILLAR CBC, PILLAR TSH #### [facility] [address] [place] [address] Hepatitis B Surface Antigeno n 01-06-2021 HBsAg Screen Negative Normal Negative [facility] Comment on above: Order Comment: Reaso n for Exam Encounter for supervision of normal first , first t Result Comment: Perf ormed at: CB - [facility] [id number] [place], [place] [id number] [employer] St[employer]cher: Marcello Velazquez PhD, Phone: [phone] Performed By: #### P ILLAR LIPID, PILLAR CMP, PILLAR CBC, PILLAR TSH #### [facility] [address] Progesteroneon 01-06-2021 Progesterone 27.6 ng/mL Normal . [facility] Comment on above: Order Comment: Reaso n for Exam Encounter for supervision of normal first , first t Result Comment: Foll icular phase 0.1 - 0.9 Luteal phase 1.8 - 23.9 Ovulation phase 0.1 - 12.0 First trimester 11.0 - 44.3 Second trimester 25.4 - 83.3 Third trimester 58.7 - 214.0 Postmenopausal 0.0 - 0.1 Performed at: [address] [id number] [employer]: Marcello Velazquez PhD, Phone: [phone] Performed By: #### H IV SCREEN, RPR W RFX, PROG, HBSAG, RUBELLA IGG #### [facility] , #### CUU, CBC #### [facility] [address] [place] [address] RPR w/rfx to Quant TP Abson 01-06-2021 RPR, Rfx Quant RPR Non-Reactive Normal Non Reactive [facility] Comment on above: Order Comment: Reaso n for Exam Encounter for supervision of normal first , first t Result Comment: Perf ormed at: [address] [id number] [employer]: Marcello Velazquez PhD, Phone: [phone] PERFORMED BY: [place] [address] PATHOLOGIST ETHANOL QUALITY LEADER KELLY WIGGINS M.D. Performed By: #### P ILLAR LIPID, PILLAR CMP, PILLAR CBC, PILLAR TSH #### [facility] [address] [place] [address] Rubella IgG Antibodyon 01-06 Rubella IgG Antibody 3.68 Normal Immune >0.99 [facility] Comment on above: Order Comment: Reaso n for Exam Encounter for supervision of normal first , first t Result Comment: Non- immune <0.90 Equivocal 0.90 - 0.99 Immune >0.99 Performed By: #### P ILLAR LIPID, PILLAR CMP, PILLAR CBC, PILLAR TSH #### [facility] [address] [place] [address] Type and Screenon 01-06-2021 ABO and Rh group Nom (Bld) Blood group O Rh(D) positive Normal [facility] Comment on above: Order Comment: Reaso n for Exam Encounter for supervision of normal first , first t Result Comment: PERF ORMED BY: [place] [address] PATHOLOGIST ETHANOL QUALITY LEADER KELLY WIGGINS M.D. Performed By: #### H IV SCREEN, RPR W RFX, PROG, HBSAG, RUBELLA IGG #### [facility] , #### CUU, CBC #### [address] Urine Cultureon 01-06-2021 Bacteria identified Cx Nom (U) Reason for Exam Encounter for supervision of normal first , first t Reason for Exam: Encounter for supervision of normal first , first t 40,000 colonies/ml mixed bacterial skin contaminants 2 Days PERFORMED BY: [place] [address] PATHOLOGIST ETHANOL QUALITY LEADER KELLY WIGGINS M.D. Normal [facility] Comment on above: Performed By: #### P ILLAR LIPID, PILLAR CMP, PILLAR CBC, PILLAR TSH #### [address] Complete Blood Count Auto Di ffon 12-14-2020 Basophils (Bld) [#/Vol] 0.1 10*3/uL Normal 0.0-0.2 [facility] Comment on above: Result Comment: PERF ORMED BY: [place] [address] PATHOLOGIST ETHANOL QUALITY LEADER KELLY WIGGINS M.D. Performed By: #### H CGQNT, CMP, CBC #### [facility] [address] [place] [address] [place] Basophils/100 WBC (Bld) 0.8 % Normal . [facility] Comment on above: Performed By: #### H CGQNT, CMP, CBC #### [place] [address] [place] Eosinophils (Bld) [#/Vol] 0.2 10*3/uL Normal 0.0-0.45 [facility] Comment on above: Performed By: #### H CGQNT, CMP, CBC #### [address] Eosinophils/100 WBC (Bld) 2.0 % Normal . [facility] Comment on above: Performed By: #### H CGQNT, CMP, CBC #### [address] Erythrocyte distribution width (RBC) [Ratio] 13.4 % Normal 11.9-15.3 [facility] Comment on above: Performed By: #### H CGQNT, CMP, CBC #### [address] Hematocrit (Bld) [Volume fraction] 39.7 % Normal 34.0-46.4 [facility] Comment on above: Performed By: #### H CGQNT, CMP, CBC #### [address] Hemoglobin (Bld) [Mass/Vol] 13.1 g/dL Normal 11.8-15.4 [facility] Comment on above: Performed By: #### H CGQNT, CMP, CBC #### [address] Lymphocytes (Bld) [#/Vol] 2.8 10*3/uL Normal 1.00-4.8 [facility] Comment on above: Performed By: #### H CGQNT, CMP, CBC #### [address] Lymphocytes/100 WBC (Bld) 30.7 % Normal . [facility] Comment on above: Performed By: #### H CGQNT, CMP, CBC #### [address] MCH (RBC) [Entitic mass] 28.8 pg Normal 24.7-34.3 [facility] Comment on above: Performed By: #### H CGQNT, CMP, CBC #### [facility] [address] MCV (RBC) [Entitic vol] 87.3 fL Normal 80-100 [facility] Comment on above: Performed By: #### H CGQNT, CMP, CBC #### [facility] [address] Mean Corpuscular HGB Conc 33.0 g/dL Normal 32.0-35.0 [facility] Comment on above: Performed By: #### H CGQNT, CMP, CBC #### [facility] [address] Monocytes (Bld) [#/Vol] 0.7 10*3/uL Normal 0.0-0.8 [facility] Comment on above: Performed By: #### H CGQNT, CMP, CBC #### [address] Monocytes/100 WBC (Bld) 7.7 % Normal . [facility] Comment on above: Performed By: #### H CGQNT, CMP, CBC #### [place] [address] [place] Neutrophils (Bld) [#/Vol] 5.3 10*3/uL Normal 1.8-7.7 [facility] Comment on above: Performed By: #### H CGQNT, CMP, CBC #### [place] [address] [place] Neutrophils/100 WBC (Bld) 58.8 % Normal . [facility] Comment on above: Performed By: #### H CGQNT, CMP, CBC #### [facility] [address] [place] [address] [place] Nucleated RBC/100 WBC (Bld) [Ratio] 0.1 % Normal 0-0.5 [facility] Comment on above: Performed By: #### H CGQNT, CMP, CBC #### [address] Platelet mean volume (Bld) [Entitic vol] 7.6 fL Normal 6.3-10.7 [facility] Comment on above: Performed By: #### H CGQNT, CMP, CBC #### [facility] [address] [place] [address] Platelets (Bld) [#/Vol] 309 10*3/uL Normal 150-450 [facility] Comment on above: Performed By: #### H CGQNT, CMP, CBC #### [facility] [address] [place] [address] RBC (Bld) [#/Vol] 4.55 10*6/uL Normal 3.60-5.00 [facility] Comment on above: Performed By: #### H CGQNT, CMP, CBC #### [address] WBC (Bld) [#/Vol] 9.0 10*3/uL Normal 4.5-11.0 [facility] Comment on above: Performed By: #### H CGQNT, CMP, CBC #### [address] Comprehensive Metabolic Pane yu 12-14-2020 Albumin [Mass/Vol] 3.0 g/dL Low 3.2-5.5 [facility] Comment on above: Performed By: #### H CGQNT, CMP, CBC #### [address] Albumin/Globulin [Mass ratio] 1.0 {ratio} Normal [facility] Comment on above: Performed By: #### H CGQNT, CMP, CBC #### [address] ALP [Catalytic activity/Vol] 45 U/L Normal 32-92 [facility] Comment on above: Performed By: #### H CGQNT, CMP, CBC #### [address] ALT [Catalytic activity/Vol] 28 U/L Normal 10-60 [facility] Comment on above: Performed By: #### H CGQNT, CMP, CBC #### [address] [place] [address] [place] AST [Catalytic activity/Vol] 24 U/L Normal 10-42 [facility] Comment on above: Performed By: #### H CGQNT, CMP, CBC #### [facility] [address] Bilirubin [Mass/Vol] 0.6 mg/dL Normal 0.3-1.2 [facility] Comment on above: Performed By: #### H CGQNT, CMP, CBC #### [address] Calcium [Mass/Vol] 8.5 mg/dL Normal 8.2-10.2 [facility] Comment on above: Performed By: #### H CGQNT, CMP, CBC #### [address] Chloride [Moles/Vol] 103 mmol/L Normal 95-114 [facility] Comment on above: Performed By: #### H CGQNT, CMP, CBC #### [address] CO2 [Moles/Vol] 23.3 mmol/L Normal 22.0-30.0 [facility] Comment on above: Performed By: #### H CGQNT, CMP, CBC #### [address] Creatinine [Mass/Vol] 0.67 mg/dL Normal 0.44-1.03 [facility] Comment on above: Performed By: #### H CGQNT, CMP, CBC #### [place] [address] [place] Creatinine Clr Calc Pharmacy 149.38 [facility] Comment on above: Performed By: #### H CGQNT, CMP, CBC #### [address] Estimated GFR ( Telma > 60 Normal [facility] Comment on above: Result Comment: GFR estimated reference range: According to KDOQI guidelines, <60 ml/min/1.73m2 is sufficient to diagnose a patient with chronic kidney disease. Performed By: #### H CGQNT, CMP, CBC #### [facility] [address] Estimated GFR (Non- Am > 60 Normal [facility] Comment on above: Performed By: #### H CGQNT, CMP, CBC #### [facility] [address] Globulin (S) [Mass/Vol] 3.1 g/dL Normal [facility] Comment on above: Performed By: #### H CGQNT, CMP, CBC #### [facility] [address] Glucose [Mass/Vol] 88 mg/dL Normal 70-100 [facility] Comment on above: Result Comment: [place] Glucose Reference Range is dependent on time and content of last meal. Glucose of more than 200 mg/dL in a nonstressed, ambulatory subject supports the diagnosis of Diabetes Mellitus. ADA recommended reference range Performed By: #### H CGQNT, CMP, CBC #### [facility] [address] Potassium [Moles/Vol] 3.4 mmol/L Low 3.5-5.1 [facility] Comment on above: Performed By: #### H CGQNT, CMP, CBC #### [address] Protein [Mass/Vol] 6.1 g/dL Normal 6.1-7.9 [facility] Comment on above: Performed By: #### H CGQNT, CMP, CBC #### [facility] [address] Sodium [Moles/Vol] 136 mmol/L Normal 136-146 [facility] Comment on above: Performed By: #### H CGQNT, CMP, CBC #### [facility] [address] Urea nitrogen [Mass/Vol] 7 mg/dL Low 9-23 [facility] Comment on above: Performed By: #### H CGQNT, CMP, CBC #### [facility] [address] [place] [address] [facility] HCG,Quantitativeon HCG,Quantitative 368.59 m[iU]/mL Normal [facility] Comment on above: Result Comment: Appr oximate Approximate hCG Gestational Age Range (mIU/ml) (weeks) 0.2-1 5-50 1-2 50-500 2-3 100-5,000 3-4 500-10,000 4-5 1,000-50,000 5-6 10,000-100,000 6-8 15,000-200,000 8-12 10,000-100,000 PERFORMED BY: [address] [place] [address] PATHOLOGIST ETHANOL QUALITY LEADER KELLY WIGGINS M.D. Performed By: #### H CGQNT, CMP, CBC #### [facility] [address] [place], [place] [id number] [facility] Progesteroneon 10-29-2020 Progesterone 9.3 ng/mL Normal [facility] Comment on above: Result Comment: Mens trual Cycle Progesterone Reference Ranges: Follicular:<1.0 ng/mL Ovulation:<12.1 ng/mL Luteal:1.8 to 23.9 ng/mL Progesterone Reference Ranges vary by gestational period: First Trimester:11.0 to 44.3 ng/mL Second trimester: 25.4 to 83.3 ng/mL Third trimester: 58.7 to 214 ng/mL Post menopausal Progesterone:<0.5 ng/mL Reference: 1. Progesterone (Progesterone III) [package insert V 1.0 Mexican]. [facility], [place], [place]. November 2014. Performed By: #### P ELIZABETH #### [facility] [address] [address] OBSOLETEon 10-03-2020 OBSOLETE Refill (ENDOCC) -- RADHA WHITECIA ([id number]) 1990 F Date Time Provider Department 10/03/20 JOYCELYN REED [facility] During your visit today, we recorded the [...] (FLONASE) 50 mcg/actuation nasal spray Use 1 [place] in the nose as needed. - sertraline [...] Status:Closed by JEANIE GARCIA on 10/20/20 Normal [facility] Employee Comp Metabolic Pane yu 09-21-2020 Albumin [Mass/Vol] 3.6 g/dL Normal 3.2-5.5 [facility] Comment on above: Performed By: #### P ILLAR LIPID, PILLAR CMP, PILLAR CBC, PILLAR TSH #### [facility] [address] Albumin/Globulin [Mass ratio] 1.2 {ratio} Normal [facility] Comment on above: Performed By: #### P ILLAR LIPID, PILLAR CMP, PILLAR CBC, PILLAR TSH #### [facility] [address] [place] [address] ALP [Catalytic activity/Vol] 57 U/L Normal 32-92 [facility] Comment on above: Performed By: #### P ILLAR LIPID, PILLAR CMP, PILLAR CBC, PILLAR TSH #### [facility] [address] [place] [address] ALT [Catalytic activity/Vol] 23 U/L Normal 10-60 [facility] Comment on above: Performed By: #### P ILLAR LIPID, PILLAR CMP, PILLAR CBC, PILLAR TSH #### [facility] [address] [place] [address] AST [Catalytic activity/Vol] 20 U/L Normal 10-42 [facility] Comment on above: Performed By: #### P ILLAR LIPID, PILLAR CMP, PILLAR CBC, PILLAR TSH #### [address] Bilirubin [Mass/Vol] 0.6 mg/dL Normal 0.3-1.2 [facility] Comment on above: Performed By: #### P ILLAR LIPID, PILLAR CMP, PILLAR CBC, PILLAR TSH #### [facility] [address] Calcium [Mass/Vol] 9.3 mg/dL Normal 8.2-10.2 [facility] Comment on above: Performed By: #### P ILLAR LIPID, PILLAR CMP, PILLAR CBC, PILLAR TSH #### [facility] [address] Chloride [Moles/Vol] 105 mmol/L Normal 95-114 [facility] Comment on above: Performed By: #### P ILLAR LIPID, PILLAR CMP, PILLAR CBC, PILLAR TSH #### [address] CO2 [Moles/Vol] 25.0 mmol/L Normal 22.0-30.0 [facility] Comment on above: Performed By: #### P ILLAR LIPID, PILLAR CMP, PILLAR CBC, PILLAR TSH #### [address] Creatinine [Mass/Vol] 0.68 mg/dL Normal 0.44-1.03 [facility] Comment on above: Performed By: #### P ILLAR LIPID, PILLAR CMP, PILLAR CBC, PILLAR TSH #### [address] Creatinine Clr Calc Pharmacy 140.25 [facility] Comment on above: Performed By: #### P ILLAR LIPID, PILLAR CMP, PILLAR CBC, PILLAR TSH #### [address] Estimated GFR ( Telma > 60 [facility] Comment on above: Result Comment: GFR estimated reference range: According to KDOQI guidelines, <60 ml/min/1.73m2 is sufficient to diagnose a patient with chronic kidney disease. Performed By: #### P ILLAR LIPID, PILLAR CMP, PILLAR CBC, PILLAR TSH #### [address] Estimated GFR (Non- Am > 60 [facility] Comment on above: Performed By: #### P ILLAR LIPID, PILLAR CMP, PILLAR CBC, PILLAR TSH #### [facility] [address] [place] [address] Globulin (S) [Mass/Vol] 2.9 g/dL Normal [facility] Comment on above: Performed By: #### P ILLAR LIPID, PILLAR CMP, PILLAR CBC, PILLAR TSH #### [address] Glucose [Mass/Vol] 73 mg/dL Normal 70-100 [facility] Comment on above: Performed By: #### P ILLAR LIPID, PILLAR CMP, PILLAR CBC, PILLAR TSH #### [address] Potassium [Moles/Vol] 4.1 mmol/L Normal 3.5-5.1 [facility] Comment on above: Performed By: #### P ILLAR LIPID, PILLAR CMP, PILLAR CBC, PILLAR TSH #### [address] Protein [Mass/Vol] 6.5 g/dL Normal 6.1-7.9 [facility] Comment on above: Performed By: #### P ILLAR LIPID, PILLAR CMP, PILLAR CBC, PILLAR TSH #### [address] Sodium [Moles/Vol] 140 mmol/L Normal 136-146 [facility] Comment on above: Performed By: #### P ILLAR LIPID, PILLAR CMP, PILLAR CBC, PILLAR TSH #### [address] Urea nitrogen [Mass/Vol] 10 mg/dL Normal 9-23 [facility] Comment on above: Performed By: #### P ILLAR LIPID, PILLAR CMP, PILLAR CBC, PILLAR TSH #### [address] Employee Complete Blood Coun ton 09-21-2020 Basophils (Bld) [#/Vol] 0.1 10*3/uL Normal 0.0-0.2 [facility] Comment on above: Result Comment: PERF ORMED BY: [place] [address] PATHOLOGIST [employer] QUALITY LEADER KELLY WIGGINS M.D. Performed By: #### P ILLAR LIPID, PILLAR CMP, PILLAR CBC, PILLAR TSH #### [address] Basophils/100 WBC (Bld) 1.0 % Normal . [facility] Comment on above: Performed By: #### P ILLAR LIPID, PILLAR CMP, PILLAR CBC, PILLAR TSH #### [address] Eosinophils (Bld) [#/Vol] 0.2 10*3/uL Normal 0.0-0.45 [facility] Comment on above: Performed By: #### P ILLAR LIPID, PILLAR CMP, PILLAR CBC, PILLAR TSH #### [address] Eosinophils/100 WBC (Bld) 2.7 % Normal . [facility] Comment on above: Performed By: #### P ILLAR LIPID, PILLAR CMP, PILLAR CBC, PILLAR TSH #### [address] Erythrocyte distribution width (RBC) [Ratio] 13.8 % Normal 11.9-15.3 [facility] Comment on above: Performed By: #### P ILLAR LIPID, PILLAR CMP, PILLAR CBC, PILLAR TSH #### [address] Hematocrit (Bld) [Volume fraction] 40.0 % Normal 34.0-46.4 [facility] Comment on above: Performed By: #### P ILLAR LIPID, PILLAR CMP, PILLAR CBC, PILLAR TSH #### [address] Hemoglobin (Bld) [Mass/Vol] 13.5 g/dL Normal 11.8-15.4 [facility] Comment on above: Performed By: #### P ILLAR LIPID, PILLAR CMP, PILLAR CBC, PILLAR TSH #### [address] Lymphocytes (Bld) [#/Vol] 3.2 10*3/uL Normal 1.00-4.8 [facility] Comment on above: Performed By: #### P ILLAR LIPID, PILLAR CMP, PILLAR CBC, PILLAR TSH #### [address] Lymphocytes/100 WBC (Bld) 37.3 % Normal . [facility] Comment on above: Performed By: #### P ILLAR LIPID, PILLAR CMP, PILLAR CBC, PILLAR TSH #### [address] MCH (RBC) [Entitic mass] 29.8 pg Normal 24.7-34.3 [facility] Comment on above: Performed By: #### P ILLAR LIPID, PILLAR CMP, PILLAR CBC, PILLAR TSH #### [address] MCV (RBC) [Entitic vol] 87.9 fL Normal 80-100 [facility] Comment on above: Performed By: #### P ILLAR LIPID, PILLAR CMP, PILLAR CBC, PILLAR TSH #### [address] Mean Corpuscular HGB Conc 33.8 g/dL Normal 32.0-35.0 [facility] Comment on above: Performed By: #### P ILLAR LIPID, PILLAR CMP, PILLAR CBC, PILLAR TSH #### [address] Monocytes (Bld) [#/Vol] 0.6 10*3/uL Normal 0.0-0.8 [facility] Comment on above: Performed By: #### P ILLAR LIPID, PILLAR CMP, PILLAR CBC, PILLAR TSH #### [address] Monocytes/100 WBC (Bld) 6.9 % Normal . [facility] Comment on above: Performed By: #### P ILLAR LIPID, PILLAR CMP, PILLAR CBC, PILLAR TSH #### [facility] [address] [place] [address] [place] Neutrophils (Bld) [#/Vol] 4.4 10*3/uL Normal 1.8-7.7 [facility] Comment on above: Performed By: #### P ILLAR LIPID, PILLAR CMP, PILLAR CBC, PILLAR TSH #### [place] [address] [place] Neutrophils/100 WBC (Bld) 52.1 % Normal . [facility] Comment on above: Performed By: #### P ILLAR LIPID, PILLAR CMP, PILLAR CBC, PILLAR TSH #### [place] [address] [place] Nucleated RBC/100 WBC (Bld) [Ratio] 0.1 % Normal 0-0.5 [facility] Comment on above: Performed By: #### P ILLAR LIPID, PILLAR CMP, PILLAR CBC, PILLAR TSH #### [address] Platelet mean volume (Bld) [Entitic vol] 8.4 fL Normal 6.3-10.7 [facility] Comment on above: Performed By: #### P ILLAR LIPID, PILLAR CMP, PILLAR CBC, PILLAR TSH #### [place] [address] [place] Platelets (Bld) [#/Vol] 334 10*3/uL Normal 150-450 [facility] Comment on above: Performed By: #### P ILLAR LIPID, PILLAR CMP, PILLAR CBC, PILLAR TSH #### [place] [address] [place] RBC (Bld) [#/Vol] 4.55 10*6/uL Normal 3.60-5.00 [facility] Comment on above: Performed By: #### P ILLAR LIPID, PILLAR CMP, PILLAR CBC, PILLAR TSH #### [place] [address] [place] WBC (Bld) [#/Vol] 8.5 10*3/uL Normal 4.5-11.0 [facility] Comment on above: Performed By: #### P ILLAR LIPID, PILLAR CMP, PILLAR CBC, PILLAR TSH #### [facility] [address] [place] [id number] [facility] Employee Lipid Profileon Cholesterol [Mass/Vol] 196 mg/dL Normal 140-200 [facility] Comment on above: Result Comment: Chol less than 200 mg/dl low risk Chol 201-239 mg/dl borderline risk Chol 240 mg/dl and greater high risk Performed By: #### P ILLAR LIPID, PILLAR CMP, PILLAR CBC, PILLAR TSH #### [facility] [address] Cholesterol in HDL [Mass/Vol] 42 mg/dL Normal 35-85 [facility] Comment on above: Result Comment: HDL CHOL ATP-III CLASSIFICATION Cardiovascular Risk HDL > or equal to 60 mg/dL LOW HDL < 40 mg/dL HIGH Performed By: #### P ILLAR LIPID, PILLAR CMP, PILLAR CBC, PILLAR TSH #### [facility] [address] [place] [id number] [facility] Cholesterol.total/ Cholesterol in HDL [Mass ratio] 4.7 {ratio} Normal <5.0 [facility] Comment on above: Performed By: #### P ILLAR LIPID, PILLAR CMP, PILLAR CBC, PILLAR TSH #### [facility] [address] [place] [id number] [facility] LDL Cholesterol,Calcul ated 132 mg/dL High 0-100 [facility] Comment on above: Result Comment: LDL ATP III CLASSIFICATION LDL less than 100 mg/dL Optimal LDL 100-129 mg/dL Near or above optimal LDL 130-159 mg/dL Borderline high LDL 160-189 mg/dL High LDL greater than 189 mg/dL Very high Performed By: #### P ILLAR LIPID, PILLAR CMP, PILLAR CBC, PILLAR TSH #### [facility] [address] [place] [id number] [facility] Triglyceride w/Reflex 110 mg/dL Normal 35-149 [facility] Comment on above: Result Comment: TRIG ATP III CLASSIFICATION TRIG less than 150 mg/dL Normal TRIG 150-199 mg/dL Borderline high TRIG 200-500 mg/dL High TRIG greater than 500 mg/dL Very high Standard traceable to the Center for Disease Conrtrol and Prevention (CDC) test method. Performed By: #### P ILLAR LIPID, PILLAR CMP, PILLAR CBC, PILLAR TSH #### [facility] [address] VLDL CHOLESTEROL 22 mg/dL Normal [facility] Comment on above: Performed By: #### P ILLAR LIPID, PILLAR CMP, PILLAR CBC, PILLAR TSH #### [facility] [address] Employee Thyroid Stim Hormon fabio 09-21-2020 Employee Thyroid Stim Hormone 5.76 u[iU]/mL High 0.45-5.33 [facility] Comment on above: Result Comment: PERF ORMED BY: [address] [place] [address] PATHOLOGIST ETHANOL QUALITY LEADER KELLY WIGGINS M.D. Performed By: #### P ILLAR LIPID, PILLAR CMP, PILLAR CBC, PILLAR TSH #### [facility] [address] Estradiol-17Bon 09-10-2020 Estradiol-17B 57 pg/mL Normal [facility] Comment on above: Result Comment: This [...] 3243 pg/mL Second trimester : 1561 TO 45819 pg/mL Third trimester : 8285 to >08904 pg/mL Post-menopausal Estradiol reference range: < 41 pg/mL Reference: 1. Estradiol - E2 (Estradiol III) [package insert V 3.0 Mexican]. [facility], [place], [place], July 2015. Performed By: #### I NSULN, DHEAS, VITD, HBA1C, GERMAIN #### [facility] [address] [place], [place] [address] HCG, Quantitative Blon 09-10 HCG, Quantitative Bl <0.6 Normal <5.0 [facility] Comment on above: Result Comment: PAT JULIO Performed By: #### I NSULN, DHEAS, VITD, HBA1CDIONISIO #### [facility] [address] [place], [place] [address] Progesteroneon 09-10-2020 Progesterone 0.2 ng/mL Normal [facility] Comment on above: Result Comment: Mens trual Cycle Progesterone Reference Ranges: Follicular:<1.0 ng/mL Ovulation:<12.1 ng/mL Luteal:1.8 to 23.9 ng/mL Progesterone Reference Ranges vary by gestational period: First Trimester:11.0 to 44.3 ng/mL Second trimester: 25.4 to 83.3 ng/mL Third trimester: 58.7 to 214 ng/mL Post menopausal Progesterone:<0.5 ng/mL Reference: 1. Progesterone (Progesterone III) [package insert V 1.0 Mexican]. [facility], [place], [place]. November 2014. Performed By: #### I NSULN, DHEAS, VITD, HBA1CDIONISIO #### [facility] [address] [id number] CNPChanel 09-09-2020 BRENDENN Telephone (JANN) -- REBECCA WHITE ([id number]) 1990 F Date Time Provider Department 09/09/20 HALLE LEACH During your visit today, we recorded the following information about you: Sheela Trevino PHYSICIAN OFFICE CLIN ASST 09/09/2020 9:12 AM Signed Pt called Negative home test Day 42 of her cycle Please call [phone] Ok to leave a message Rafaela Millard [...] Drew - Fully Assessed Reason for Visit: Patient Update [1234] Primary Visit Diagnosis: examination or test, unconfirmed [Z32.00] Other Visit Diagnosis:Secondary amenorrhea [N91.1] Order(s):HCG QUANTITATIVE [SQHCGQT] Order #: [id number] FUTURE PROGESTERONE BLD [SQPROG] Order #: [id number] FUTURE ESTRADIOL-17B BLD [SQE2] Order #: [id number] FUTURE SCHEDULE LAB TESTING [[id number]] Order #: [id number] FUTURE Prescriptions as of 09/09/2020 - medroxyPROGESTERone (PROVERA) 10 mg tablet Take 1 tablet by mouth once daily for 10 days. - fluticasone (FLONASE) 50 mcg/actuation nasal spray Use 1 Nanjemoy in the nose as needed. - sertraline [...] Encounter Status:Closed by MAURICE BONILLA on 09/09/20 [facility] 09-03-2020 BRENDENN Telephone (REIMN) -- REBECCA WHITE ([id number]) 1990 F Date Time Provider Department 09/03/20 HALLE LEACH During your visit today, we recorded the following information about you: Rafaela Millard RN 09/03/2020 8:22 AM Signed Patient sent a ftopia chart message. Called the patient she verified her [...] used provera was May. Routing to Non [facility] Ivf Pool for advisement Rafaela Millard RN September 03, 2020 8:22 AM Allergies As of Date: 09/03/2020 (No Known Allergies) Date Reviewed: 05/06/2020 Reviewed by: Liliane Drew - Fully Assessed Reason for Visit: Question [5547] Prescriptions as of 09/09/2020 - medroxyPROGESTERone (PROVERA) 10 mg tablet Take 1 tablet by mouth once daily for 10 days. - fluticasone (FLONASE) 50 mcg/actuation nasal spray Use 1 Nanjemoy in the nose as needed. - sertraline [...] Status:Closed by RAFAELA MILLARD on 09/09/20 Normal [facility] Progesteroneon 06-16-2020 Progesterone 14.3 ng/mL Normal [facility] Comment on above: Result Comment: Mens trual Cycle Progesterone Reference Ranges: Follicular:<1.0 ng/mL Ovulation:<12.1 ng/mL Luteal:1.8 to 23.9 ng/mL Progesterone Reference Ranges vary by gestational period: First Trimester:11.0 to 44.3 ng/mL Second trimester: 25.4 to 83.3 ng/mL Third trimester: 58.7 to 214 ng/mL Post menopausal Progesterone:<0.5 ng/mL Reference: 1. Progesterone (Progesterone III) [package insert V 1.0 Mexican]. [facility], [place], [place]. November 2014. Performed By: #### P ELIZABETH #### [facility] [place] [address] Anti Germain Hormoneon 2020 Anti Germain Hormone 9.30 ng/mL High 0.58-8.13 [facility] Comment on above: Performed By: #### I NSULN, DHEAS, VITD, HBA1C, GERMAIN #### [facility] [address] [place] [id number] CBCon 05-06-2020 Absolute nRBC <0.01 Normal <0.01 [facility] Comment on above: Performed By: #### I NSULN, DHEAS, VITD, HBA1C, GERMAIN #### [facility] [address] [place] [phone] Erythrocyte distribution width (RBC) [Ratio] 13.2 % Normal 11.5-15.0 [facility] Comment on above: Performed By: #### I NSULN, DHEAS, VITD, HBA1C, GERMAIN #### [facility] [address] [place] [phone] Hematocrit (Bld) [Volume fraction] 44.5 % Normal 36.0-46.0 [facility] Comment on above: Performed By: #### I NSULN, DHEAS, VITD, HBA1C, DIONISIO #### [place] [address] Hemoglobin (Bld) [Mass/Vol] 14.6 g/dL Normal 11.5-15.5 [facility] Comment on above: Performed By: #### I NSULN, DHEAS, VITD, HBA1C, DIONISIO #### [place] [address] MCH 29.4 pG Normal 26.0-34.0 [facility] Comment on above: Performed By: #### I NSULN, DHEAS, VITD, HBA1C, DIONISIO #### [place] [address] MCHC (RBC) [Mass/Vol] 32.8 g/dL Normal 30.5-36.0 [facility] Comment on above: Performed By: #### I NSULN, DHEAS, VITD, HBA1C, DIONISIO #### [place] [address] MCV (RBC) [Entitic vol] 89.5 fL Normal 80.0-100.0 [facility] Comment on above: Performed By: #### I NSULN, DHEAS, VITD, HBA1C, DIONISIO #### [place] [address] Platelet mean volume (Bld) [Entitic vol] 9.6 fL Normal 9.0-12.7 [facility] Comment on above: Performed By: #### I NSULN, DHEAS, VITD, HBA1C, DIONISIO #### [place] [address] Platelets (Bld) [#/Vol] 314 10*3/uL Normal 150-400 [facility] Comment on above: Performed By: #### I NSULN, DHEAS, VITD, HBA1C, DIONISIO #### [facility] [address] [place] [phone] RBC (Bld) [#/Vol] 4.97 10*6/uL Normal 3.90-5.20 [facility] Comment on above: Performed By: #### I NSULN, DHEAS, VITD, HBA1C, DIONISIO #### [facility] [address] [place] [address] WBC (Bld) [#/Vol] 8.64 10*3/uL Normal 3.70-11.00 [facility] Comment on above: Performed By: #### I NSULN, DHEAS, VITD, HBA1C, DIONISIO #### [facility] [address] [place] [phone] CNOVon 05-06-2020 CNOV Office Visit (DESTINYIAV) -- REBECCA WHITE ([id number]) 1990 F Date Time Provider Department 05/06/20 8:45 AM HLALE LEACH During your visit today, we recorded the following information about you: Pulse Blood pressure Weight Height 64/minute 119/64 104.6 kg 1.676 m Last Period 01/08/20 Liliane Drew MA 05/06/2020 8:50 AM Signed [facility] Date: 05/06/2020 Consultation Requested By: Dr Joycelyn eRed Rebecca White is a 30 year old [...] Hysteroscopy Laparoscopy OPK (Ovulation Predictor Kit) Ovarian [place] Ultrasound Semen Analysis Ultrasound Other (See [...] on file. 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 - sertraline [...] with more than 50% of the total ygch-zd-yvfd time of the visit in counseling / coordination of care. Medical Decision Making Consultation requested by Dr. Joycelyn Reed MD [address] [place] [address] for an opinion regarding irregular period and my recommendations will be (more content not included)... Normal [facility] CONSULT PROGon 05-06-2020 CONSULT PROG HNO ID: [id number] Author: Liliane Drew Service: ? Author Type: Fire Alarm Operator Type: Consult Progress Note Filed: 05/11/2020 7:30 PM Note Text: [facility] Date: 05/06/2020 Consultation Requested [...] Hysteroscopy Laparoscopy OPK (Ovulation Predictor Kit) Ovarian [place] Saline Ultrasound Semen Analysis Ultrasound Other (See [...] on file. 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 - sertraline [...] with more than 50% of the total ymdx-ub-yjiz time of the visit in counseling / coordination of care. Medical Decision Making Consultation requested by Dr. Joycelyn Reed MD [address] [place] [address] [place] [address] for an opinion regarding irregular period and my recommendations will be communicated back to the requesting physician by way of shared Medical record or letter via US mail , MD bautista - MD Shirin Agosto MD Normal [facility] Comp Metabolic Panelon 05-06 Albumin [Mass/Vol] 4.2 g/dL Normal 3.9-4.9 [facility] Comment on above: Performed By: #### I NSULN, DHEAS, VITD, HBA1C, GERMAIN #### [facility] [address] [place], [place] [address] ALP [Catalytic activity/Vol] 81 U/L Normal 34-123 [facility] Comment on above: Performed By: #### I NSULN, DHEAS, VITD, HBA1C, GERMAIN #### [place] [address] [place], [place] [address] ALT [Catalytic activity/Vol] 18 U/L Normal 7-38 [facility] Comment on above: Performed By: #### I NSULN, DHEAS, VITD, HBA1C, GERMAIN #### [place] [address] [place], [place] [address] Anion gap [Moles/Vol] 13 mmol/L Normal 9-18 [facility] Comment on above: Performed By: #### I NSULN, DHEAS, VITD, HBA1C, GERMAIN #### [facility] [address] [place], [place] [address] AST [Catalytic activity/Vol] 19 U/L Normal 13-35 [facility] Comment on above: Performed By: #### I NSULN, DHEAS, VITD, HBA1C, GERMAIN #### [facility] [address] [place], [place] [address] Bilirubin [Mass/Vol] 0.3 mg/dL Normal 0.2-1.3 [facility] Comment on above: Performed By: #### I NSULN, DHEAS, VITD, HBA1C, GERMAIN #### [facility] [address] [place], [place] [address] Calcium [Mass/Vol] 9.3 mg/dL Normal 8.5-10.2 [facility] Comment on above: Performed By: #### I NSULN, DHEAS, VITD, HBA1C, GERMAIN #### [place] [address] [place] [phone] Chloride [Moles/Vol] 103 mmol/L Normal 97-105 [facility] Comment on above: Performed By: #### I NSULN, DHEAS, VITD, HBA1C, GERMAIN #### [place] [phone] CO2 [Moles/Vol] 24 mmol/L Normal 22-30 [facility] Comment on above: Performed By: #### I NSULN, DHEAS, VITD, HBA1C, GERMAIN #### [place] [phone] Creatinine [Mass/Vol] 0.72 mg/dL Normal 0.58-0.96 [facility] Comment on above: Performed By: #### I NSULN, DHEAS, VITD, HBA1C, GERMAIN #### [place] [phone] eGFR- Amer. >60 Normal [facility] Comment on above: Performed By: #### I NSULN, DHEAS, VITD, HBA1C, GERMAIN #### [place] [phone] eGFR-All Other Races >60 Normal [facility] Comment on above: Result Comment: eGFR [...] I NSULN, DHEAS, VITD, HBA1C, GERMAIN #### [facility] [address] [place] [address] Glucose [Mass/Vol] 85 mg/dL Normal 74-99 [facility] Comment on above: Result Comment: The [place] Diabetes Association (ADA) provides guidance for cutoff [...] Standards of Medical Care in Diabetes 2016, [place] Diabetes Association. Diabetes Care. 2016.39(Suppl 1). Performed By: #### I NSULN, DHEAS, VITD, HBA1C, GERMAIN #### [facility] [address] [place] [address] Potassium [Moles/Vol] 3.9 mmol/L Normal 3.7-5.1 [facility] Comment on above: Performed By: #### I NSULN, DHEAS, VITD, HBA1C, GERMAIN #### [facility] [address] [place] [address] Protein [Mass/Vol] 7.4 g/dL Normal 6.3-8.0 [facility] Comment on above: Performed By: #### I NSULN, DHEAS, VITD, HBA1C, GERMAIN #### [facility] [address] [place] [address] Sodium [Moles/Vol] 140 mmol/L Normal 136-144 [facility] Comment on above: Performed By: #### I NSULN, DHEAS, VITD, HBA1C, GERMAIN #### [facility] [address] [place] [address] Urea nitrogen [Mass/Vol] 9 mg/dL Normal 7-21 [facility] Comment on above: Performed By: #### I NSULN, DHEAS, VITD, HBA1CDIONISIO #### [facility] [address] [place] [address] DHEA-Son 05-06-2020 DHEA-S 154.9 ug/dL Normal 98.8-340.0 [facility] Comment on above: Result Comment: Refe rence ranges are age and gender specific. For additional information, reference range tables can be found in the laboratory test directory. The normal values are based on the following source: Dehydroepiandrosterone sulfate (DHEA S) [package insert V 17.0 Mexican]. [facility], [place], [place]: September 2012. Performed By: #### I NSULN, DHEAS, VITD, HBA1CDIONISIO #### [place] [address] [place] [address] Hemoglobin A1con 05-06-2020 Glucose [Mass/Vol] 111 mg/dL Normal [facility] Comment on above: Result Comment: eAG: (Estimated average glucose) is a calculated value from HgbA1c and is insurance claim representative of the average blood glucose level in the last 2-3 month period. Performed By: #### I NSULN, DHEAS, VITD, HBA1CDIONISIO #### [place] [address] [place] [address] HbA1c (Bld) [Mass fraction] 5.5 % Normal 4.3-5.6 [facility] Comment on above: Result Comment: Amer [place] Diabetes Association guidelines indicate that patients with HgbA1c in the range 5.7-6.4% are at increased risk for development of diabetes, and intervention by lifestyle modification may be beneficial. HgbA1c greater or equal to 6.5% is considered diagnostic of diabetes. Performed By: #### I NSULN, DHEAS, VITD, HBA1CDIONISIO #### [place] [address] [place] [address] Insulinon 05-06-2020 Insulin 16.4 mU/L Normal 3.0-25.0 [facility] Comment on above: Performed By: #### I NSULN, DHEAS, VITD, HBA1C, GERMAIN #### [facility] [address] [place], [place] [address] Testosterone, Tot/Fron 05-06 Testosterone [Mass/Vol] 77 ng/dL High 8-60 [facility] Comment on above: Result Comment: (NOT E) ADDITIONAL INFORMATION Testing performed by Liquid Chromatography-Tandem Mass Spectrometry (LC-MS/MS). This test was developed and its performance characteristics determined by [facility] in a manner consistent with CLIA requirements. This test has not been cleared or approved by the U.S. Food and Drug Administration. Performed By: #### T FTEST #### [facility] [address] [place] [address] Testosterone, Free 1.54 ng/dL High 0.06-1.03 [facility] Comment on above: Result Comment: (NOT E) ADDITIONAL INFORMATION Testing performed by [facility]. This test was developed and its performance characteristics determined by [facility] in a manner consistent with CLIA requirements. This test has not been cleared or approved by the U.S. Food and Drug Administration. Performed By: #### T FTEST #### [facility] [address] [place] [address] Vitamin D 25 Hydroxyon 05-06 Vitamin D 25 Hydroxy 24.7 ng/mL Low 31.0-80.0 [facility] Comment on above: Result Comment: Clas sification of 25 [place] Vitamin D status: Insufficiency/Moderate Deficiency: < or = 30 ng/mL Sufficiency/Optimal Levels: 31 to 80 ng/mL Toxicity: > 100 ng/mL Test performed by chemiluminescent immunoassay. Performed By: #### I NSULN, DHEAS, VITD, HBA1C, GERMAIN #### [facility] [address] [place] [address] Creatinine,Urine,24hon 03-29 Creatinine,Urine,2 4h 1.713 g/24 hr Normal 0.8-1.8 [facility] Comment on above: Performed By: #### I NSULN, DHEAS, VITD, HBA1C, GERMAIN #### [facility] [address] [place] [address] Free Ben, UR LCMSMSon 03-29 Collect Lgth, UFRCRT 24 Normal [facility] Comment on above: Performed By: #### I NSULN, DHEAS, VITD, HBA1C, GERMAIN #### [place] [address] [place] [address] Creatinine [Mass/Vol] 214 mg/dL Normal [facility] Comment on above: Performed By: #### I NSULN, DHEAS, VITD, HBA1C, GERMAIN #### [place] [address] [place] [address] Total Volume, UFRCRT 710 Normal [facility] Comment on above: Performed By: #### I NSULN, DHEAS, VITD, HBA1C, GERMAIN #### [place] [address] [place] [address] UR Ben Free Interp SEE NOTE Normal [facility] Comment on above: Result Comment: (NOT E) INTERPRETIVE INFORMATION: Cortisol Urine Free by LC-MS/MS Access complete set of age- and/or gender-specific reference intervals for this test in the [employer] [facility] Test Directory ([employer]). This test was developed and its performance characteristics determined by [facility]. It has not been cleared or approved by the US Food and Drug Administration. This test was performed in a CLIA certified laboratory and is intended for clinical purposes. Performed by [facility], [facility] [place] [address] www.[employer], Lin Rosales MD, Lab. Director Performed By: #### I NSULN, DHEAS, VITD, HBA1C, GERMAIN #### [facility] [address] [place] [address] UR Ben Free ug/d 14.5 ug/d Normal <=45.0 [facility] Comment on above: Performed By: #### I NSULN, DHEAS, VITD, HBA1C, GERMAIN #### [place] [address] [place] [address] UR Ben Free ug/L 20.40 ug/L Normal [facility] Comment on above: Performed By: #### I NSULN, DHEAS, VITD, HBA1C, GERMAIN #### [place] [address] [place] [address] UR Cortisol ug/g rotary drill operator 9.53 ug/g TYPE INSPECTOR [facility] Comment on above: Result Comment: (NOT E) Reference Interval: Cortisol ug/g rotary drill operator Female Prepubertal: Less than 25 ug/g rotary drill operator 18 years and older: Less than 24 ug/g rotary drill operator : Less than 59 ug/g rotary drill operator Male Prepubertal: Less than 25 ug/g rotary drill operator 18 years and older: Less than 32 ug/g rotary drill operator Performed By: #### I NSULN, DHEAS, VITD, HBA1C, GERMAIN #### [place] [id number] [place] [address] UR,Creatinine mg/day 1519 mg/d Normal 700-1600 [facility] Comment on above: Performed By: #### I NSULN, DHEAS, VITD, HBA1C, GERMAIN #### [place] [address] [place] [address] Period / Volumeon 03-29-2020 Collection End Date [facility] Comment on above: Performed By: #### I NSULN, DHEAS, VITD, HBA1C, GERMAIN #### [facility] [place] [facility] [place] [address] Collection End Time 929 Normal [facility] Comment on above: Performed By: #### I NSULN, DHEAS, VITD, HBA1C, GERMAIN #### [facility] [place] [address] [place] [phone] Collection Start Date [facility] Comment on above: Performed By: #### I NSULN, DHEAS, VITD, HBA1C, GERMAIN #### [facility] [place] [address] [place] [phone] Collection Start Time 929 [facility] Comment on above: Performed By: #### I NSULN, DHEAS, VITD, HBA1C, GERMAIN #### [facility] [place] [address] [place] [phone] Period 24 hr [facility] Comment on above: Performed By: #### I NSULN, DHEAS, VITD, HBA1C, GERMAIN #### [facility] [place] [address] [place] [phone] Volume 710 mL [facility] Comment on above: Performed By: #### I NSULN, DHEAS, VITD, HBA1C, GERMAIN #### [facility] [place] [address] [place] [phone] Vital Signs Date Time Vital Sign Value Performing Clinician Facility 02-27-2022 09:45-0500 Body height 165.1 cm Edie Butterfield Other [facility] 02-27-2022 09:45-0500 Body mass index (BMI) [Ratio] 43.26 kg/m2 Edie Butterfield Other [facility] 02-27-2022 09:45-0500 Body weight 117.94 kg Edie Butterfield Other [facility] 02-27-2022 09:45-0500 Diastolic blood pressure 80 mm[Hg] Edie Butterfield Other [facility] 02-27-2022 09:45-0500 SaO2% (BldA) [Mass fraction] 91 % Edie Butterfield Other [facility] 02-27-2022 09:45-0500 Systolic blood pressure 120 mm[Hg] Edie Butterfield Other [facility] Other Encounters Encounter Date Encounter Type Care Provider Facility Start: 03-05-2023 End: 03-05-2023 ambulatory DALLAS MULLINS Not Available Start: 05-17-2022 End: 05-17-2022 ambulatory Edie Butterfield Other [facility] Start: 05-17-2022 Telephone encounter Edie Butterfield [facility] Start: 02-27-2022 End: 02-27-[address] DALLAS MULLINS Facility:[facility] Start: 02-27-2022 Office outpatient vi sit 15 minutes Edie Butterfield [facility] Start: 02-16-2022 Gynecological examin ation normal Edie Butterfield Other [facility] Start: 09-06-2021 End: 09-06-[address] [...] first t Result Comment: PERF ORMED BY: [facility] [address] [place] [address] PATHOLOGIST ETHANOL QUALITY LEADER KELLY WIGGINS M.D. Performed By: #### H IV SCREEN, RPR W RFX, PROG, HBSAG, RUBELLA IGG #### [facility] , #### CUU, CBC #### [facility] [address] H/O: section Edie Scout Other Payers Date Payer Category Payer Unknown [id number] 2.16.84 [id number] 1988 Unknown [id number] 2.16.84 [id number] 1988 Unknown [id number] 2.16.84 0.1.172038.3.579.2.593 1988 Unknown [id number] 2.16.84 0.1.101203.3.579.2.593 1988 Unknown [id number] 2.16.84 0.1.743831.3.579.2.593 1988 Unknown [id number] 2.16.84 0.1.003792.3.579.2.593 1988 Unknown [id number] 2.16.84 0.1.896055.3.579.2.593 1988 Unknown [id number] 2.16.84 0.1.048124.3.579.2.593 1988 Unknown [id number] 2.16.84 0.1.359149.3.579.2.593 1988 Unknown [id number] 2.16.84 0.1.414651.3.579.2.593 1988 Unknown [id number] 2.16.84 0.1.449073.3.579.2.593 1988 Unknown [id number] 2.16.84 [id number] 1959 Private Health Insurance [id number] 1959 Unknown [id number] 1959 Unknown [id number] Social History Date Type Detail Facility Unknown if ever smoked [facility] Other Sex Assigned At Sex Assigned At Bir th [facility] Evaluation note 02-27-2022 Note Date & Type Note Facility 02-27-2022 Evaluation note Encounter Date Diagnosis Assessment Notes Feb, Pain in right wrist (ICD-10 - M25.531) Feb, Pain in left wrist (ICD-10 - M25.532) [facility] Clinical Note 08-21-2021 Note Date & Type Note Facility 08-21-2021 Note OPERATIVE NOTE OPERATION DATE: 08/22/2021 PROCEDURE: Primary low transverse section. PREOPERATIVE DIAGNOSIS: 1. Intrauterine at 40 and 5/7 days. 2. Failure to induce, Cervidil x2. POSTOPERATIVE DIAGNOSIS: 1. Intrauterine at 40 and 5/7 days. 2. Failure to induce, Cervidil x2. ANESTHESIA: Spinal with Duramorph. SURGEON: Dallas Mullins D.O. [employer] LINER ASSEMBLER: REG Marcus URINE OUTPUT: Yellow and clear. [...] to the Recovery Room in stable condition. [facility] Signed and Approved by: DR DALLAS MULLINS . 08/26/2021 08:15:00 [facility] Discharge summary note 08-21-2021 Note Date & [...] free and no longer on narcotics. [facility] Progress note 09-13-2020 Note Date & Type Note Facility 09-13-2020 Note HNO ID: [id number] Author: Maurice Bonilla APRN.CNP Service: ? Author [...] Total Time Spent: 5 minutes Maurice Bonilla APRN.RELAY OPERATOR September 13, 2020 11:59 AM [facility] Evaluation note Note Date & Type Note Facility Evaluation note No Information [employer] Other History general Narrative - Reported Note Date & Type Note Facility History general Narrative - Reported Type Medical History BMI 40.0-44.9, adult Medical History PCOS (polycystic ovarian syndrom e) Medical History Amenorrhea, secondary Medical History Bronchitis Medical History Depression Surgical History ADRENALECTOMY, TOTAL, LEFT 05/07 014 Hospitalization History C SECTION [facility] Other Summary Purpose Family History No Family [...] Pain in right wrist (M25.531) Referral Organization [facility] naveen Referring Provider First Name Edie Referring Provider Last Name Scout Referring Provider Specialty Family [facility] Referred Organization [facility] Referred Provider Ej Foley Referred Address ,[place], [place],[address] Referred Provider Specialty Orthopedic S urgery Referral Priority Routine Referral Appointment Date 2022-03-16 General Notes Melsisa Douglas 11:10:18 AM >received today, waiting for [...] DATE CREATED AUTHOR AUTHOR'S ORGANIZ ATION 02/24/2021 [facility] DATE CREATED AUTHOR AUTHOR'S ORGANIZ ATION 03/19/2021 [facility] DATE CREATED AUTHOR AUTHOR'S ORGANIZ ATION 03/04/2022 [facility] DATE CREATED AUTHOR AUTHOR'S ORGANIZ ATION 03/05/2023 [facility] EPIC REASON FOR VISIT (unrecogniz ed section and [...] BE BASED ON THE PRIMARY CLINICAL RECORDS. [employer] [facility]. provides no warranty or guarantee of the accuracy or completeness of information in this document.
[2023-03-08 16:10] LABS: Age Gdln ACOG Testing Note (.); HPV Aptima Negative (Negative); IGP, Aptima HPV, rfx 16/18,45 Note (.)
== END 2023-03-05 21:05 | disposition home or self-care (01) ==
LOC: LAB 21:04
PROVIDERS: Visit Provider Obstetrics & Gynecology
DX: Z01.419 Encounter for gynecological examination (general) (routine) without abnormal findings (principal)
CPT/HCPCS: 87624; G0145

== ENCOUNTER 2023-08-27 10:14 | Outpatient (OUT) | payer OTHER, SELFPAY ==
[2023-08-27 10:50] LABS: Basophils Absolute Auto 0.1 10^3/uL (0.0-0.1); Basophils Percent Auto 0.6 % (0.2-2.0); Eosinophils Absolute Auto 0.2 10^3/uL (0.0-0.7); Eosinophils Percent Auto 2.1 % (0.9-7.0); Hematocrit 44.5 % (36.0-48.0); Hemoglobin 14.2 g/dL (12.0-16.0); Immature Granulocytes Abs Auto 0.05 10^3/uL (0.00-0.03); Immature Granulocytes Pct Auto 0.6 % (0.0-0.5); Lymphocytes Absolute Auto 3.2 10^3/uL (1.2-3.8); Mean Corpuscular HGB Conc 31.9 g/dL (29.9-35.2); Mean Corpuscular Hemoglobin 28.7 pg (26.7-34.0); Mean Corpuscular Volume 90.1 fL (81.0-99.0); Mean Platelet Volume 9.4 fL (9.5-13.5); Monocytes Absolute Auto 0.7 10^3/uL (0.3-0.8); Monocytes Percent Auto 7.7 % (1.7-12.0); Neutrophils Absolute Auto 4.7 10^3/uL (1.4-6.5); Platelet Count 431 10^3/uL (150-450); Red Blood Count 4.94 10^6/uL (4.20-5.40); Red Cell Distribution Width 14.4 % (11.0-15.0); White Blood Count 8.9 10^3/uL (4.0-11.0)
[2023-08-27 11:18] LABS: INR 0.97; Prothrombin Time 10.3 sec (9.0-11.6)
== END 2023-08-27 10:15 | disposition home or self-care (01) ==
LOC: LAB 10:16
PROVIDERS: Visit Provider Nurse Practitioner Family
DX: R90.89 Other abnormal findings on diagnostic imaging of central nervous system (principal)
CPT/HCPCS: 36415; 85025; 85610; 85730

== ENCOUNTER 2023-10-23 13:20 | Outpatient (OUT) | payer OTHER, SELFPAY ==
[2023-10-23 15:08] LABS: Alanine Aminotransferase 38 U/L (14-59); Albumin Globulin Ratio 0.8; Albumin Level 3.1 g/dL (3.4-5.0); Alkaline Phosphatase 66 U/L (46-116); Anion Gap 10.5; Aspartate Amino Transferase 25 U/L (15-37); BUN Creatinine Ratio 15.8; Bilirubin Total 0.4 mg/dL (0.2-1.0); Calcium 8.7 mg/dL (8.5-10.1); Carbon Dioxide 30.3 mmol/L (21.0-32.0); Chloride 100 mmol/L (98-107); Estimated GFR (African America >60 (>=60); Estimated GFR (Non-African Ame >60 (>=60); Globulin 4.1 g/dL; Glucose 78 mg/dL (74-106); Potassium 3.8 mmol/L (3.5-5.1); Sodium 137 mmol/L (136-145); Total Protein 7.2 g/dL (6.4-8.2)
== END 2023-10-23 13:21 | disposition home or self-care (01) ==
LOC: LAB 13:20
PROVIDERS: Visit Provider Nurse Practitioner Family
DX: Z51.81 Encounter for therapeutic drug level monitoring (principal)
CPT/HCPCS: 36415; 80053

== ENCOUNTER 2024-01-22 14:24 | Outpatient (OUT) | payer OTHER, SELFPAY ==
[2024-01-22 14:56] LABS: Anion Gap 13.7; BUN Creatinine Ratio 10.6; Calcium 8.8 mg/dL (8.5-10.1); Carbon Dioxide 27.2 mmol/L (21.0-32.0); Chloride 105 mmol/L (98-107); Estimated GFR (African America >60 (>=60 mL/min/1.73m^2); Estimated GFR (Non-African Ame >60 (>=60 mL/min/1.73m^2); Glucose 81 mg/dL (74-106); Potassium 3.9 mmol/L (3.5-5.1); Sodium 142 mmol/L (136-145)
== END 2024-01-22 14:25 | disposition home or self-care (01) ==
LOC: LAB 14:25
PROVIDERS: Visit Provider Nurse Practitioner Family
DX: Z51.81 Encounter for therapeutic drug level monitoring (principal)
CPT/HCPCS: 36415; 80048

== ENCOUNTER 2024-03-06 18:56 | Outpatient (REF) | payer OTHER, SELFPAY ==
--- OUTSIDE RECORDS SUMMARY | 2024-03-06 19:00 | XMS_ITS | CCD ---
Author Organization [facility] CliniSyny Care Team Providers Care Outside Sales Advertising Executive Name Role Phone HARVINDER COLLINS Unavailable Unavailable HARVINDER COLLINS Unavailable Unavailable MISC, DOCTOR Unavailable Unavailable HARVINDER COLLINS Unavailable Unavailable HARPREET, DR HAYNES Attending Unavailable BUTTERFIELD, DR ALYSSA Francois Primary Care Unavailable WEST, DR KULWINDER Lin Consulting Unavailable HARPREET, DR HAYNES Admitting Unavailable HARPREET, DR HAYNES Consulting Unavailable KARASIK, DR ACUNA Admitting Unavailable BUTTERFIELD, DR ALYSSA Francois Primary Care Unavailable KARASIK, DR ACUNA Attending Unavailable HARPREET, DR HAYNES Attending Unavailable BUTTERFIELD, DR ALYSSA Francois Primary Care Unavailable HARPREET, DR HAYNES Admitting Unavailable HARPREET, DR HAYNES Attending Unavailable BUTTERFIELD, DR ALYSSA Francois Primary Care Unavailable HARPREET, DR HAYNES Admitting Unavailable HARPREET, DR HAYNES Attending Unavailable BUTTERFIELD, DR ALYSSA Francois Primary Care Unavailable HARPREET, DR HAYNES Admitting Unavailable HARPREET, DR HAYNES Consulting Unavailable HARPREET, DR HAYNES Attending Unavailable BUTTERFIELD, DR ALYSSA Francois Primary Care Unavailable WEST, DR KULWINDER Lin Consulting Unavailable HARPREET, DR HAYNES Admitting Unavailable HARPREET, DR HAYNES Consulting Unavailable HARPREET, DR HAYNES Consulting Unavailable HARPREET, DR HAYNES Attending Unavailable HARPREET, DR HAYNES Admitting Unavailable BUTTERFIELD, DR ALYSSA Francois Primary Care Unavailable HARPREET, DR HAYNES Attending Unavailable HARPREET, DR HAYNES Admitting Unavailable BUTTERFIELD, DR ALYSSA Francois Primary Care Unavailable RUBI, DR KULWINDER Lin Consulting Unavailable HARPREET, DR HAYNES Consulting Unavailable HARPREET, DR HAYNES Attending Unavailable BUTTERFIELD, DR ALYSSA Francois Primary Care Unavailable HARPREET, DR HAYNES Admitting Unavailable HARPREET, DR HAYNES Consulting Unavailable HARPREET, DR HAYNES Attending Unavailable HARPREET, DR HAYNES Admitting Unavailable BUTTERFIELD, DR ALYSSA Francois Primary Care Unavailable HARPREET, DR HAYNES Consulting Unavailable HARPREET, DR HAYNES Procedure Practitioner Unavailab le AGUBOSIM MARCK Consulting Unavailable HARPREET, DR HAYNES Attending Unavailable HARPREET, DR HAYNES Admitting Unavailable BUTTERFIELD, DR ALYSSA Francois Primary Care Unavailable [place], DR KULWINDER Lin Consulting Unavailable HARPREET, DR HAYNES Consulting Unavailable Alyssa Butterfield Unavailable MD Alyssa Butterfield Primary Care Provider MD Alyssa Butterfield Attending Provider MD Alyssa Butterfield Primary Care Provider MD Alyssa Butterfield Attending Provider ALYSSA BUTTERFIELD Primary Care Unavailable DO Bonnie Johnson Attending Provider [phone] MD Alyssa Butterfield Primary Care Provider Luke, CELL COVERER-BURGLARY INVESTIGATOR-C Naya Francois Attending Provider Naya Butler Admitting Unavailable Naya Butler Attending Unavailable Alyssa Butterfield Primary Care Unavailable Bonnie Johnson Admitting Unavailab Bonnie Dixon Attending Unavailab le Alyssa Butterfield Primary Care Unavailable Alyssa Butterfield Admitting Unavailable lAyssa Butterfield Attending Unavailable Alyssa Butterfield Primary Care Unavailable Naya Butler Admitting Unavailable Naya Butler Attending Unavailable Alyssa Butterfield Primary Care Unavailable Alyssa Butterfield MD Primary Care Provider Alyssa Butterfield MD Primary Care Provider Butler CELL COVERER-BURGLARY INVESTIGATOR-C, Naya Francois Attending Provider RICCI MULLINS Attending Unavailable MERISSA CRAFT Attending Unavailable ALYSSA BUTTERFIELD Referring Unavailable ALEXANDER GEORGE Attending Unavailable ALYSSA BUTTERFIELD Referring Unavailable BONNIE JOHNSON Attending Unavailable NAYA BUTLER Attending Unavailable BONNIE JOHNSON Referring Unavailable NAYA BUTLER Attending Unavailable BONNIE JOHNSON Attending Unavailable NAYA BUTLER Attending Unavailable YUN NARANJO Attending Unavailable LUKE, NAYA Referring Unavailable YUN NARANJO Attending Unavailable BUTLER, NAYA Referring Unavailable Allergies Allergy Classification Reported Allergen(s) Allergy Type Date of Onset Reaction(s) Facility (1 source) patient allergy list reviewed by nurse or physicia Propensity to adverse reactions 9 Comment:Done [employer] Other (1 source) Allergies Reconciled Propensity to adverse reactions Unknown [employer] Other Medications Current Medications Medication Drug Class(es) Dates Sig (Normalized) Sig (Original) albuterol 0.83 mg/ml inhalation solution (20 sources) beta2-Adrenergic Agonist Start: 12-30-2022 albuterol (2.5 MG/3ML) 0.083% nebulizer solution Take 2.5 mg by nebulization every 6 (six) hours if needed 12/30/2022 Active Start: 12-30-2022 take 2 puff(s) by in halation every six hours albuterol HFA 90 mcg/act inhaler Inhale 2 puffs every 6 (six) hours if needed 12/30/2022 Active aspirin 81 mg delayed release oral tablet (2 sources) Platelet Aggregation Inhibitor, Nonsteroidal Anti-inflammatory Drug take 1 tablet by mouth every twenty-four hours Aspirin 81 MG 1 tablet Orally Once a day Active cholecalciferol 0.05 mg oral capsule (18 sources) Vitamin D take 1 capsule by mouth in the morning cholecalciferol (Vitamin D-3) 50 MCG (1999 UT) capsule Take 2,000 Units by mouth in the morning. Active drospirenone 4 mg oral tablet (2 sources) Progestin Start : 03-06 End: 05-29 take 1 tablet by mouth once daily Drospirenone (Slynd) 4 MG tablet Indications: Well woman exam with routine gynecological exam , control counseling Take 1 tablet by mouth Daily 84 tablet 3 03/06/2024 05/29/2024 Active drospirenone 3 mg / ethinyl estradiol 0.03 mg oral tablet (18 sources) Progestin, Estrogen Start : 08-28 End: 08-28 drospirenone-ethinyl estradiol (Letty, Ocella) 3-0.03 MG tablet Indications: control counseling Take 1 tablet by mouth Daily 84 tablet 3 08/29/2023 08/28/2024 Active fexofenadine hydrochloride 180 mg oral tablet (20 sources) Histamine-1 Receptor Antagonist take 1 tablet by mouth in the morning fexofenadine (Radha Allergy) 180 MG tablet Take 180 mg by mouth in the morning. Active Radha Not-Taki ng/PRN Radha Not-Taki ng furosemide 20 mg oral tablet (20 sources) Loop Diuretic Start: 10-16-2023 End: 01-14-2024 take 1 tablet by mouth once daily Furosemide 20 mg tablet Active 20 MG PO Daily October 21, 2023 11:00pm meclizine hydrochloride 25 mg oral tablet (20 sources) Antiemetic Start: 04-18-2023 take 1 tablet by mouth three times daily as needed meclizine (Antivert) 25 MG tablet Take 25 mg by mouth 3 (three) times a day as needed 04/18/2023 Active Start: 04-16-2023 End: 01-17-2024 Meclizine 25 mg tablet Disco ntinued 25 MG PO 2-3 TIMES PER DAY as needed for dizziness April 18, 2023 9:41am January 17, 2024 4:00pm 24 hr metFORMIN hydrochloride 500 mg extended release oral tablet (20 sources) Biguanide Start: 09-17-2023 End: 12-20-2023 take 1 tablet by mouth twice daily Metformin 500 mg tablet extended release 24 hr Active 0 .ROUTE .COMPLEX 180 December 20, 2023 4:05pm TAKE 1 TABLET BY MOUTH TWICE DAILY Start: 06-08-2023 End: 09-17-2023 take 1 tablet by mouth twice daily Metformin 500 mg tablet extended release 24 hr Discontinued 500 MG PO Twice daily June 11, 2023 7:34am September 17, 2023 10:42am Start: 04-13-2023 End: 06-08-2023 take 1 tablet by mouth once daily Metformin 500 mg tablet extended release 24 hr Discontinued 500 MG PO Daily June 07, 2023 11:53am June 08, 2023 2:42pm Start: 12-14-2020 End: 04-13-2023 take 1 tablet by mouth twice daily Metformin 500 mg tablet extended release 24 hr Discontinued 500 MG PO Twice daily December 14, 2020 12:00am April 13, 2023 10:21am take 1 tablet by gabriela th every twenty-four hours in the morning metFORMIN XR (Glucophage-XR) 500 MG 24 hr tablet Take 500 mg by mouth in the morning and 500 mg in the evening. Take after meals. Active take 1 tablet by gabriela th every twenty-four hours metFORMIN HCl ER 500 MG 1 tablet with evening meal Orally Once a day Active Naproxen (18 sources) Nonsteroidal Anti-inflammatory Drug End: 03-06-2024 NAPROXEN PO Naproxen 03/06/2024 Discontinued NAPROXEN PO Napr oxen Active ondansetron 4 mg disintegrating oral tablet (20 sources) Serotonin-3 Receptor Antagonist Start: 08-16-2023 End: 03-06-2024 take 1 tablet by mouth every eight hours as needed for nausea and vomiting Ondansetron 4 mg tablet,disintegrating Active 4 MG PO Q8H as needed for nausea and vomiting August 15, 2023 11:00pm (3 sources) Active Vit-Fe Fumarate-FA ( VITAMINS PO) (18 sources) End: 03-06-2024 take 1 tablet by mouth once daily Vit-Fe Fumarate-FA ( VITAMINS PO) Take 1 tablet by mouth Daily 03/06/2024 Discontinued take 1 tablet by mouth once ten y Vit-Fe Fumarate-FA ( VITAMINS PO) Take 1 tablet by mouth Daily Active vitamin b12 1 mg oral tablet (18 sources) Vitamin B12 take 1 tablet by mouth once daily cyanocobalamin (Vitamin B-12) 1000 MCG tablet Take 1,000 mcg by mouth Daily Active Completed/Discontinued Medications Medication Drug Class(es) Dates Sig (Normalized) Sig (Original) acetaZOLAMIDE 250 mg oral tablet (3 sources) Carbonic Anhydrase Inhibitor Start: 09-30-2023 End: 12-29-2023 take 1 tablet by mouth in the morning acetaZOLAMIDE (Diamox) 250 MG tablet Indications: Intracranial hypertension Take 1 tablet (250 mg) by mouth in the morning and 1 tablet (250 mg) before bedtime. 60 tablet 2 09/30/2023 10/15/2023 Discontinued (Side effects) amoxicillin 875 mg / clavulanate 125 mg oral tablet (2 sources) Penicillin-class Antibacterial Start: 02-14-2024 End: 02-26-2024 take 1 tablet by mouth twice daily Amoxicillin-Pot Clavulanate 875-125 mg tablet Discontinued 1 TAB PO Twice daily February 14, 2024 12:00am February 26, 2024 10:05am azithromycin 250 mg oral tablet (14 sources) Macrolide Antimicrobial Start: 07-31-2023 End: 08-16-2023 Azithromycin 250 mg tablet Discontinued 0 PO .COMPLEX July 30, 2023 11:00pm August 16, 2023 8:48am For 250 mg dose pack: take 500 mg today (day 1), then 250 mg for 4 days (days 2-5) PO Start: 07-31-2023 End: 08-16-2023 Azithromycin Discontinued 0 PO .COMPLEX July 31, 2023 12:00am August 16, 2023 9:48am For 250 mg dose pack: take 500 mg today (day 1), then 250 mg for 4 days (days 2-5) PO Start: 07-31-2023 Azithromycin A ctive 0 PO .COMPLEX July 31, 2023 12:00am For 250 mg dose pack: take 500 mg today (day 1), then 250 mg for 4 days (days 2-5) PO Azithromycin 250 MG as directed Orally Active busPIRone hydrochloride 5 mg oral tablet (20 sources) Start: 01-17-2024 End: 03-06-2024 take 1 tablet by mouth once daily Buspirone 5 mg tablet Discontinued 5 MG PO Daily January 17, 2024 4:00pm March 06, 2024 9:44am Start: 09-06-2023 End: 01-17-2024 take 1 tablet by mouth twice daily as needed for anxiety Buspirone 5 mg tablet Discontinued 5 MG PO Twice daily as needed for anxiety November 06, 2023 9:56am January 17, 2024 4:00pm docosahexaenoic acid 200 mg oral capsule (16 sources) Start: 04-13-2023 End: 09-25-2023 Docosahexaenoic Acid ( Dha) 200 mg capsule Discontinued MG PO April 13, 2023 12:00am September 25, 2023 6:59am fluticasone (3 sources) Corticosteroid Flonase Not-Taki ng/PRN Flonase Not-Taki ng letrozole 2.5 mg oral tablet (3 sources) Aromatase Inhibitor Letrozole 2. 5 MG PLEASE SEE ATTACHED FOR DETAILED DIRECTIONS Oral for 90 Not-Taking/PRN medroxyPROGESTERone acetate 10 mg oral tablet (3 sources) Progestin medroxyPROGESTER one Acetate 10 MG TAKE 1 TABLET BY MOUTH DAILY UP TO 10 DAYS UNTIL THE START OF MONTHLY CYCLE Oral for 10 Not-Taking/PRN omeprazole 40 mg delayed release oral capsule (3 sources) Proton Pump Inhibitor take 1 capsule by mouth once daily Omeprazole 40 MG 1 capsule 30 minutes before morning meal Orally Once a day Not-Taking/PRN sertraline 50 mg oral tablet (20 sources) Serotonin Reuptake Inhibitor Start : 12-14 End: 04-12 take 1 tablet by mouth once daily Sertraline 50 mg Tablet Discontinued 50 MG PO Daily December 14, 2020 12:00am April 13, 2023 10:21am 24 hr venlafaxine 37.5 mg extended release oral capsule (20 sources) Serotonin and Norepinephrine Reuptake Inhibitor Start : 07-30 take 75 mg by mouth once daily Venlafaxine Active 75 MG PO Daily July 31, 2023 3:29pm Start: 05-22-2023 take 1 capsule by mo [facility] once daily Venlafaxine 75 mg capsule,extended release 24hr Active 75 MG PO Daily March 06, 2024 9:46am Start: 04-13-2023 End: 03-06-2024 take 1 capsule by mouth once daily Venlafaxine 37.5 mg capsule,extended release 24hr Discontinued 75 MG PO Daily July 31, 2023 2:29pm March 06, 2024 9:47am take 1 capsule by [facility] every twenty-four hours Effexor XR 37.5 MG 1 capsule with food Orally Once a day for 90 days Active Problems Active Problems Problem Classification Problem Date Documented Da te Episodic/Chronic Abdominal pain (2 sources) Generalized abdominal pain; Translations: [Generalized abdominal pain] Onset: 5 Episodic Acute and chronic tonsillitis (18 sources) Chronic tonsillitis; Translations: [Chronic tonsillitis] Onset: 8 07-12-2022 Chronic Anxiety disorders (17 sources) Anxiety; Translations: [Anxiety disorder, unspecified] 09-06-2023 Chronic Chronic obstructive pulmonary disease and bronchiectasis (20 sources) Bronchitis; Translations: [Bronchitis, not specified as acute or chronic] 08-01-2023 Episodic Conditions associated with dizziness or vertigo (20 sources) Vertigo; Translations: [Dizziness and giddiness] Onset: 04-16-2023 Episodic Early or threatened labor (1 source) False labor; Translations: [False labor, unspecified] Episodic Esophageal disorders (19 sources) Gastroesophageal reflux disease; Translations: [Gastro-esophageal reflux disease without esophagitis] 04-13-2023 Chronic Genitourinary symptoms and ill-defined conditions (1 source) Unspecified symptoms and signs involving the genitourinary system; Translations: [Unspecified symptoms and signs involving the genitourinary system] Episodic Headache; including migraine (20 sources) Headache; Translations: [Headache] 08-29-2023 Episodic Headache; including migraine (1 source) Headache; including migraine Onset: 4 Hemorrhage during ; abruptio placenta; placenta previa (2 sources) Low lying placenta NOS or without hemorrhage, second trimester; Translations: [Placenta previa without hemorrhage] Onset: 2 Episodic Immunizations and screening for infectious disease (1 source) Encounter for screening for human papillomavirus (HPV); Translations: [ENC SCREENING HUMAN PAPILLOMAVIRUS] Onset: 3 Episodic Menstrual disorders (20 sources) Amenorrhea; Translations: [Secondary amenorrhea] Onset: 7 06-08-2022 Chronic Mood disorders (20 sources) Depressive disorder; Translations: [Depression] Onset: 3 04-13-2023 Chronic Other aftercare (1 source) History and physical examination, follow-up; Translations: [Encounter for follow-up examination after completed treatment for conditions other than malignant neoplasm] Episodic Other aftercare (6 sources) Patient encounter status; Translations: [Encounter for therapeutic drug level monitoring] 01-22-2024 Episodic Other circulatory disease (1 source) Elevated blood-pressure reading without diagnosis of hypertension; Translations: [Elevated blood-pressure reading, without diagnosis of hypertension] Episodic Other complications of (1 source) Anemia in mother complicating , childbirth AND/OR puerperium; Translations: [Anemia complicating , unspecified trimester] Chronic Other complications of (1 source) Finding related to ; Translations: [Other specified related conditions, unspecified trimester] Episodic Other complications of (1 source) Maternal care for excessive growth, unspecified trimester, not applicable or unspecified; Translations: [Maternal care for excessive growth, unspecified trimester, not applicable or unspecified] Episodic Other complications of (1 source) Viral disease of mother during ; Translations: [Other viral diseases complicating , second trimester] Episodic Other complications of (16 sources) Complication of , childbirth and/or the puerperium; Translations: [Other specified related conditions, unspecified trimester] 01-17-2023 Episodic Comment on above: Problem List clean-u p per request of Phys. EHR Cmte Other endocrine disorders (4 sources) Polycystic ovarian syndrome; Translations: [Polycystic ovaries] Onset: 2 12-24-2023 Chronic Other endocrine disorders (4 sources) Polycystic ovaries; Translations: [Polycystic ovarian syndrome] Chronic Other endocrine disorders (18 sources) Mass of left adrenal gland; Translations: [Other specified disorders of adrenal gland] Onset: 3 06-08-2022 Chronic Other endocrine disorders (18 sources) Polycystic ovary; Translations: [Polycystic ovarian syndrome] Onset: 3 06-08-2022 Chronic Other endocrine disorders (3 sources) Polycystic ovary syndrome; Translations: [Polycystic ovarian syndrome] 01-01-2024 Chronic Other gastrointestinal disorders (3 sources) Irritable bowel syndrome with diarrhea; Translations: [Irritable bowel syndrome with diarrhea] Chronic Other gastrointestinal disorders (1 source) Passing flatus; Translations: [Flatulence] Episodic Other nervous system disorders (15 sources) Raised intracranial pressure; Translations: [Benign intracranial hypertension] 08-29-2023 Chronic Other nervous system disorders (20 sources) Benign intracranial hypertension; Translations: [Benign intracranial hypertension] Onset: 4 08-16-2023 Chronic Other nervous system disorders (18 sources) Carpal tunnel syndrome of left wrist; Translations: [Carpal tunnel syndrome, left upper limb] Onset: 3 06-08-2022 Chronic Other nervous system disorders (18 sources) Carpal tunnel syndrome of right wrist; Translations: [Carpal tunnel syndrome, right upper limb] Onset: 3 06-08-2022 Chronic Other nervous system disorders (18 sources) Carpal tunnel syndrome; Translations: [Carpal tunnel syndrome, unspecified upper limb] Onset: 4 07-30-2023 Chronic Other nervous system disorders (18 sources) Bilateral carpal tunnel syndrome; Translations: [Carpal tunnel syndrome, bilateral upper limbs] Onset: 4 07-30-2023 Chronic Other nervous system disorders (9 sources) Impairment of balance; Translations: [Other abnormalities of gait and mobility] Onset: 4 01-22-2024 Episodic Other non-traumatic joint disorders (1 source) Pain in right wrist Episodic Other non-traumatic joint disorders (1 source) Pain in left wrist Episodic Other nutritional; endocrine; and metabolic disorders (4 sources) Body mass index 40+ - severely obese; Translations: [Body mass index (BMI) 40.0-44.9, adult] Chronic Other nutritional; endocrine; and metabolic disorders (19 sources) Obesity; Translations: [Obesity, unspecified] Onset: 8 06-08-2022 Chronic Other nutritional; endocrine; and metabolic disorders (4 sources) Severe obesity; Translations: [Class 3 severe obesity due to excess calories with serious comorbidity and body mass index (BMI) of 45.0 to 49.9 in adult ([facility])] 11-20-2023 Chronic Other and delivery including normal (11 sources) Encounter for care and examination of lactating mother; Translations: [Encounter for routine follow-up] Onset: 2 Episodic Other upper respiratory disease (1 source) Seasonal allergic rhinitis; Translations: [Other seasonal allergic rhinitis] Onset: 7 Chronic Other upper respiratory disease (1 source) Allergic rhinitis; Translations: [Allergic rhinitis, unspecified] Onset: 6 Chronic Other upper respiratory infections (11 sources) Acute pharyngitis; Translations: [Acute pharyngitis, unspecified] Onset: 5 01-21-2024 Episodic Otitis media and related conditions (20 sources) Acute transudative otitis media; Translations: [Other acute nonsuppurative otitis media, unspecified ear] Onset: 8 04-16-2023 Episodic Prolonged (5 sources) Post-term ; Translations: [Post-term ] Onset: 2 Episodic Residual codes; unclassified (1 source) Gestation period, 36 weeks; Translations: [36 weeks gestation of ] Episodic Residual codes; unclassified (1 source) Gestation period, 39 weeks; Translations: [39 weeks gestation of ] Episodic Residual codes; unclassified (1 source) Gestation period, 30 weeks; Translations: [30 weeks gestation of ] Episodic Residual codes; unclassified (1 source) History of uterine scar from previous surgery; Translations: [History of uterine scar from previous surgery] Episodic Residual codes; unclassified (1 source) Family history of breast cancer; Translations: [Family history of malignant neoplasm of breast] Episodic Spondylosis; intervertebral disc disorders; other back problems (9 sources) Neck pain; Translations: [Cervicalgia] Onset: 4 01-22-2024 Episodic Unclassified (20 sources) Encounter for screening for malignant neoplasm of cervix; Translations: [Encounter for screening for Streptococcus B] Onset: 8 Episodic Unclassified (1 source) PERSONAL HISTORY OF COVID-19; Translations: [PERSONAL HISTORY OF COVID-19] Onset: 2 Unclassified (1 source) CONTACT W/AND (SUSP) EXPOS COVID-19; Translations: [CONTACT W/AND (SUSP) EXPOS COVID-19] Onset: 2 Unclassified (1 source) Cold Like Symptoms Onset: 4 Viral infection (7 sources) Viral infection, unspecified; Translations: [Enteroviral vesicular stomatitis with exanthem] Onset: 4 01-21-2024 Episodic Past or Other Problems Problem Classification Problem Date Documented Date Episodic/Chronic Diabetes mellitus without complication (5 sources) Other abnormal glucose; Translations: [Abnormal glucose level] Onset: 05-28-2021 Resolved: 06-08-2021 Episodic Inflammatory diseases of female pelvic organs (2 sources) Vaginitis and vulvovaginitis; Translations: [Vaginitis and vulvovaginitis in diseases classified elsewhere] Onset: 09-16-2013 Episodic Other circulatory disease (1 source) Cardiovascular symptoms; Translations: [Other specified symptoms and signs involving the circulatory and respiratory systems] Resolved: 07-05-2021 Episodic Other complications of ; puerperium affecting [...] 3RD TRI UNS] Onset: 07-30-2021 Episodic Other lower respiratory disease (1 source) Cough; Translations: [Cough, unspecified] Resolved: 07-05-2021 Episodic Other nervous system disorders (1 source) Ataxia, unspecified; Translations: [Ataxia, unspecified] Onset: 08-15-2023 Episodic Other skin disorders (1 source) Hirsutism; Translations: [Hirsutism] Onset: 07-21-2014 Episodic Other upper respiratory disease (1 source) Nasal congestion; Translations: [Nasal congestion] Resolved: 07-05-2021 Episodic Residual codes; unclassified (1 source) 40 [...] WEEKS GESTATION OF ] Onset: 05-10-2021 Episodic Residual codes; unclassified (1 source) Gestation period, 33 weeks; Translations: [33 weeks gestation of ] Resolved: 07-05-2021 Episodic Residual codes; unclassified (1 source) Gestation period, 34 weeks; Translations: [34 weeks gestation of ] Resolved: 07-21-2021 Episodic Results Test Name Value Interpretation Reference Range Facility ALL BASIC METABOLIC PANELon 01-22-2024 Anion gap [Moles/Vol] 13.7 mmol/L NO [facility] Calcium [Mass/Vol] 8.8 mg/dL 8.5 - 10. 1 mg/dL [facility] Chloride [Moles/Vol] 105 mmol/L 98 - 10 7 mmol/L [facility] CO2 [Moles/Vol] 27.2 mmol/L 21.0 - 32.0 mmol/L [facility] Creatinine [Mass/Vol] 0.85 mg/dL 0.55 - 1.02 mg/dL [facility] GFR/1.73 sq M.predicted CKD-EPI (S/P/Bld) [Vol rate/Area] >60 >=60 mL/min/1.73 m 2 [facility] Glucose [Mass/Vol] 81 mg/dL 74 - 106 mg/dL [facility] Potassium [Moles/Vol] 3.9 mmol/L 3.5 - 5.1 mmol/L [facility] Sodium [Moles/Vol] 142 mmol/L 136 - 145 mmol/L [facility] TBH EGFR-NON AF MICRONESIAN >60 >=60 mL/min/1.73 m 2 [facility] Urea nitrogen [Mass/Vol] 9 mg/dL 7.0 - 18.0 mg/dL [facility] Urea nitrogen/Creatinine [Mass ratio] 10.6 mg/mg [facility] MR venography head wo conon 11-09-2023 MR venography head wo [facility] [place] [address] MRI Report Signed Patient: Rebecca White MR#: [id number] 38 : 1990 Acct:[id number] Age/Sex: 33 / F ADM Date: 11/09/23 Loc: Room: Type: [facility] Attending Dr: Naya JUÁREZ Copies to: FRANCK Masterson Ordering Provider: FRANCK Masterson Date of Service: 11/09/23 MR/MR venography head wo con: G93.2 MR venography head wo con 11/09/2023 6:43 AM SIGN AND SYMPTOMS: Intracranial hypertension suggested on previous MRI of the brain, dizziness PROTOCOL: Multiplanar multisequence MR images of the brain were obtained without IV contrast. Images include sagittal 3-D enhance noncontrast MRV with 3-D reconstructions COMPARISON: 08/15/2023 FINDINGS: Extra axial spaces: Age appropriate. Hemorrhage: None. Ventricular system: Within normal limits. Basal cisterns: Within normal limits and not effaced. Cerebral parenchyma: Normal in signal. Midline shift: None.. Cerebellum: Within normal limits. Brainstem: Within normal limits. OTHER: Calvarium: Normal marrow signal. Vascular system: Satisfactory flow voids within the anterior and posterior circulation. Visualized Paranasal sinuses: Within normal limits. Visualized Orbits: There is tortuosity of the optic nerves similar to the prior exam. Visualized upper cervical spine: Within normal limits. Sella and skull base: There is redemonstration of flattening of the pituitary within the sella. The superior sagittal sinus, torcula, sigmoid sinuses, and proximal internal jugular veins, great cerebral veins, basal veins of Denzel, vein of Jose, straight sinus, veins of Alyssia, and veins of Trolard are patent. There is significant narrowing of the posterior and lateral aspects of the transverse sinuses as seen on the previous contrast-enhanced MRI. No evidence of venous thrombosis. MR/MR venography head wo con IMPRESSION: No evidence of venous thrombosis. No acute intracranial pathology. Redemonstration of findings consistent with intracranial hypertension as seen on the previous MRI. Impression dictated by: Manjeet Sargent M.D.11/09/2023 9:34 AM Dictation Location: [place] [address] Transcribed By: [facility] 11/09/23933 Dictated By: Manjeet Sargent II, MD 11/09/23917 Signed By: 11/09/23933 Normal The Pending [facility] To [facility] CMP (CMP) (FOR REMOTE FH C USE)on 10-23-2023 Albumin [Mass/Vol] 3.1 g/dL Low 3.4 - 5.0 g/dL [facility] ALBUMIN GLOBULIN RATIO 0.8 [facility] ALP [Catalytic activity/Vol] 66 U/L 46 - 116 U/L [facility] ALT [Catalytic activity/Vol] 38 U/L 14 - 59 [facility] Anion gap [Moles/Vol] 10.5 mmol/L NO [facility] AST [Catalytic activity/Vol] 25 U/L 15 - 37 U/L [facility] Bilirubin [Mass/Vol] 0.4 mg/dL 0.2 - 1 .0 mg/dL [facility] Calcium [Mass/Vol] 8.7 mg/dL 8.5 - 10. 1 mg/dL [facility] Chloride [Moles/Vol] 100 mmol/L 98 - 10 7 mmol/L [facility] CO2 [Moles/Vol] 30.3 mmol/L 21.0 - 32.0 mmol/L [facility] Creatinine [Mass/Vol] 0.76 mg/dL 0.55 - 1.02 mg/dL [facility] GFR/1.73 sq M.predicted CKD-EPI (S/P/Bld) [Vol rate/Area] >60 60 - PINF [facility] Globulin (S) [Mass/Vol] 4.1 g/dL [facility] Glucose [Mass/Vol] 78 mg/dL 74 - 106 mg/dL [facility] Interpretation and review of laboratory results Abnormal [facility] Potassium [Moles/Vol] 3.8 mmol/L 3.5 - 5.1 mmol/L [facility] Protein [Mass/Vol] 7.2 g/dL 6.4 - 8.2 g/dL [facility] Sodium [Moles/Vol] 137 mmol/L 136 - 145 mmol/L [facility] TBH EGFR-NON AF MICRONESIAN >60 60 - PINF [facility] Urea nitrogen [Mass/Vol] 12.0 mg/dL 7.0 - 18.0 mg/dL [facility] Urea nitrogen/Creatinine [Mass ratio] 15.8 mg/mg [facility] Aerobic Cultureon 09-25-2023 Aerobic Culture Comment Aerobic/anaerobic No Growth 2 Days Comment Aerobic/anaerobic No Anaerobes Isolated 3 Days Comment Aerobic/anaerobic Gram Stain Result No Bacteria Seen No White Blood Cells Seen No Red Blood Cells Seen PERFORMED BY: [facility] [address] [place] [address] PATHOLOGIST [employer] KELLY WIGGINS M.D. Normal [facility] Comment on above: Performed By: #### C SF TP, CSF PCR PANEL, CSFCCDIFF #2, GS, CSF GLU, AERC ####[facility] [id number] Aerobic cultureOrdered By: Ana Butler on 09-25-2023 Bacteria identified Aer cx Nom (Unsp spec) Aerobic culture [facility] Anaerobic cultureOrdered By: Naya Butler on 09-25-2023 Bacteria identified Anaer cx Nom (Unsp spec) Anaerobic culture [facility] CSF PCR Panelon 09-25-2023 CSF PCR Panel Comment Aerobic/anaerobic Cytomegalovirus Not detected Cryptococcus neoformans or gattii 9002 Not detected Escherichia coli K1 Not detected Enterovirus Not detected Haemophilus influenzae (reported as H flu) Not detected Human herpesvirus 6 Not detected Herpes simplex virus 1 Not detected Herpes simplex virus 2 DNA [Presence] in Cerebral spinal fluid by NIMA with non-probe detection Not detected Listeria monocytogenes (reported as listeriosis) Not detected Neisseria meningitidis - reported as meningococcal disease Not detected Human parechovirus Not detected Streptococcus pneumoniae - reported at ISP Not detected Group B Strep (Streptococcus agalactiae) Not detected Varicella zoster virus Not detected PERFORMED BY: [place] [address] PATHOLOGIST [employer] KELLY WIGGINS M.D. Normal [facility] Comment on above: Performed By: #### C SF TP, CSF PCR PANEL, CSFCCDIFF #2, GS, CSF GLU, AERC #### [place] [address] [place] Cell Count Differential,CSFo n 09-25-2023 Appearance, CSF Clear Normal Clear [facility] Comment on above: Order Comment: Comme nt tube 1 Performed By: #### C SFCCDIFF #### [place] [address] [place] Color, CSF Colorless Normal Colorless [facility]ending [facility] Comment on above: Order Comment: Comme nt tube 1 Performed By: #### C SFCCDIFF #### [address] CSF Supernatant Color Colorless Normal Colorless The [facility]ending [facility] Comment on above: Order Comment: Comme nt tube 1 Performed By: #### C SFCCDIFF #### [place] [address] [place] CSF Volume, Total 33.5 mL Normal [facility]ending [facility] Comment on above: Order Comment: Comme nt tube 1 Performed By: #### C SFCCDIFF #### [place] [address] [place] Lymphocytes, CSF 6 Normal [facility]ending [facility] Comment on above: Order Comment: Comme nt tube 1 Result Comment: The reference interval and other method performance specifications have not been established for this body fluid. The test result must be integrated into the clinical context for interpretation. Performed By: #### C SFCCDIFF #### [address] Monocytes, CSF 2 Normal [facility]ending [facility] Comment on above: Order Comment: Comme nt tube 1 Result Comment: The reference interval and other method performance specifications have not been established for this body fluid. The test result must be integrated into the clinical context for interpretation. Performed By: #### C SFCCDIFF #### [address] RBC, CSF 5 /uL Normal [facility]ending [facility] Comment on above: Order Comment: Comme nt tube 1 Result Comment: The reference interval and other method performance specifications have not been established for this body fluid. The test result must be integrated into the clinical context for interpretation. Performed By: #### C SFCCDIFF #### [address] TNC, CSF 1 /uL Normal 0-5 [facility] Comment on above: Order Comment: Comme nt tube 1 Performed By: #### C SFCCDIFF #### [address] Total Count, CSF 8 Normal [facility] Comment on above: Order Comment: Comme nt tube 1 Performed By: #### C SFCCDIFF #### [address] Tube Number Tested, CSF Tube Number: 1 Normal [facility]ending [facility] Comment on above: Order Comment: Comme nt tube 1 Result Comment: PERF ORMED BY: [place] [address] PATHOLOGIST [employer] KELLY WIGGINS M.D. Performed By: #### C SFCCDIFF #### [address] Cell Count Differential,CSF #2on 09-25-2023 Appearance, CSF Clear Normal Clear [facility] Comment on above: Performed By: #### C SF TP, CSF PCR PANEL, CSFCCDIFF #2, GS, CSF GLU, AERC ####[address] Color, CSF Colorless Normal Colorless The [facility]ending [facility] Comment on above: Performed By: #### C SF TP, CSF PCR PANEL, CSFCCDIFF #2, GS, CSF GLU, AERC ####[address] CSF Supernatant Color Colorless Normal Colorless The [facility]ending [facility] Comment on above: Performed By: #### C SF TP, CSF PCR PANEL, CSFCCDIFF #2, GS, CSF GLU, AERC ####[address] CSF Volume, Total 33.5 mL Normal The [facility]ending [facility] Comment on above: Performed By: #### C SF TP, CSF PCR PANEL, CSFCCDIFF #2, GS, CSF GLU, AERC ####[address] Lymphocytes, CSF 3 Normal [facility]ending [facility] Comment on above: Result Comment: The reference interval and other method performance specifications have not been established for this body fluid. The test result must be integrated into the clinical context for interpretation. Performed By: #### C SF TP, CSF PCR PANEL, CSFCCDIFF #2, GS, CSF GLU, AERC ####[address] RBC, CSF 1 /uL Normal The [facility]ending [facility] Comment on above: Result Comment: The reference interval and other method performance specifications have not been established for this body fluid. The test result must be integrated into the clinical context for interpretation. Performed By: #### C SF TP, CSF PCR PANEL, CSFCCDIFF #2, GS, CSF GLU, AERC ####[address] TNC, CSF 2 /uL Normal 0-5 The [facility]ending [facility] Comment on above: Performed By: #### C SF TP, CSF PCR PANEL, CSFCCDIFF #2, GS, CSF GLU, AERC ####[address] [place] [address] [facility] Total Count, CSF 3 Normal The [facility]ending [facility] Comment on above: Performed By: #### C SF TP, CSF PCR PANEL, CSFCCDIFF #2, GS, CSF GLU, AERC ####[facility] Tube Number Tested, CSF Tube Number: 4 Normal The [facility]ending [facility] Comment on above: Result Comment: PERF ORMED BY: [facility] [address] [place] [address] PATHOLOGIST [employer] KELLY WIGGINS M.D. Performed By: #### C SF TP, CSF PCR PANEL, CSFCCDIFF #2, GS, CSF GLU, AERC ####[facility] Cerebrospinal fluid appearan ce descriptionOrdered By: Naya Butler on 09-25-2023 Appearance (CSF) Clear Clear [facility] Cerebrospinal fluid color id entificationOrdered By: Naya Butler on 09-25-2023 Color (CSF) Color CSF Colorless [facility] Cerebrospinal fluid post-lul trifugation appearance determinationOrdered By: Naya Butler on 09-25-2023 Appearance (Spun CSF) Colorless Colorless [facility] Appearance (Spun CSF) Cerebrospinal flui d post-centrifugation appearance determination Colorless [facility] Cerebrospinal fluid sample t ube volume measurementOrdered By: Naya Butler on 09-25-2023 Specimen volume (CSF) 33.5 mL [facility] Specimen volume (CSF) Cerebrospinal flui d sample tube volume measurement [facility] Color CSFOrdered By: Naya pink on 09-25-2023 Color (CSF) Colorless Colorless [facility] Determination of appearance of cerebrospinal fluidOrdered By: Naya Butler on 09-25-2023 Appearance (CSF) Cerebrospinal fluid appearance description Clear [facility] Eosinophil count CSFOrdered By: Naya Butler on 09-25-2023 CSF Eosinophils N/A [facility] Glucose [Mass/volume] in Cer ebral spinal fluidOrdered By: Naya Butler on 09-25-2023 Glucose (CSF) [Mass/Vol] 60 mg/dL 40-70 [facility] Glucose (CSF) [Mass/Vol] Glucose [Mass/volume] in Cerebral spinal fluid 40-70 [facility] Glucose, CSF #2on 09-25-2023 Glucose, CSF #2 60 mg/dL Normal 40-70 [facility]ending [facility] Comment on above: Performed By: #### C SF GLU #2, CSF TP #2 #### [address] [address] [place] Glucose, Spinal Fluidon 08 0-2023 Glucose, Spinal Fluid 62 mg/dL Normal 40-70 The [facility]ending [facility] Comment on above: Performed By: #### C SF TP, CSF PCR PANEL, CSFCCDIFF #2, GS, CSF GLU, AERC #### [place] [id number] [place] Gram Stainon 09-25-2023 Microscopic observation Gram stain Nom (Unsp spec) Comment Aerobic/anaerobic Gram Stain Result No Bacteria Seen No White Blood Cells Seen No Red Blood Cells Seen PERFORMED BY: [place] [address] PATHOLOGIST [employer] KELLY WIGGINS M.D. Normal The Pending [facility] Comment on above: Performed By: #### C SF TP, CSF PCR PANEL, CSFCCDIFF #2, GS, CSF GLU, AERC #### [address] Gram stain for investigation of transfusion reactionOrdered By: Naya Butler on 09-25-2023 Microscopic observation Gram stain Nom (Unsp spec) No Anaerobes Isolated [address] [facility] Microscopic observation Gram stain Nom (Unsp spec) No Anaerobes Isolated [address] [facility] Gram stain microscopyOrdered By: Naya Butler on 09-25-2023 Microscopic observation Gram stain Nom (Unsp spec) Gram stain microscopy [facility] IR guided lumbar puncture LP on 09-25-2023 IR guided lumbar puncture LP [facility] Main [place] [address] [place] [address] Interventional Radiology Rpt Signed Patient: Rebecca White MR#: [id number] 40 : 1990 Acct:[id number] Age/Sex: 33 / F ADM Date: 09/25/23 Loc: XD Room: Type: [facility] Attending Dr: Naya JUÁREZ Copies to: FRANCK Masterson Ordering Provider: FRANCK Masterson Date of Service: 09/25/23 IR/IR guided lumbar puncture LP: HEADACHES IR guided lumbar puncture LP 09/25/2023 7:53 AM SIGNS AND SYMPTOMS: Headaches, dizziness, abnormal MRI suggesting intracranial hypertension INFORMED CONSENT: Reason for procedure was discussed with the patient. The procedure expectations risks benefits options and alternatives were discussed. All the questions were answered. The patient understood the results cannot be guaranteed. The procedure is indicated and risks were acceptable. Consent was obtained. PROCEDURE: A fluoroscopically guided lumbar puncture was performed at the L3-L4 level on the left via a left sublaminar approach. The patient was prepped and draped in a sterile manner. 5 mL of lidocaine 2% % without epinephrine were used for local anesthesia. A 20-gauge spinal needle was introduced into the subarachnoid space on the left atL3-L4 via a left sublaminar approach. With the patient in the left lateral decubitus position the opening pressure was measured at 32 cm CSF. After removal of 32 mL of clear CSF in 4 tubes the closing pressure was measured at 14 cm CSF. The needle was removed and hemostasis was obtained using manual pressure. Cumulative Air Kerma in mGy: 60.6 mGy The patient tolerated the procedure well. No immediate complications were detected. IR/IR guided lumbar puncture LP IMPRESSION: Successful fluoroscopically guided high volume lumbar puncture with opening pressure of 32 cm CSF consistent with the history of intracranial hypertension. Impression dictated by: Manjeet Sargent M.D.09/25/2023 10:34 AM Dictation Location: [place] [address] Transcribed By: [facility] 09/25/23 1034 Dictated By: Manjeet Sargent II, MD 09/25/23 103 Signed By: 09/25/23 103 [facility] Physician [facility] 09-25-2023 L Specimen: [id number] Received: 09/25/23 Status: LORENZO Hurd Num: [id number] Spec Type: Cytology Subm Dr: Manjeet Sargent II, MD Tissues: A CSF (CSF) Procedures: Cyto Prepstain, DIFF QWIK, PAPSTN Age/ Patient Sex Location Account Attending Physician WhiteRebecca Cohen 33/F XD [id number] Naya Butler, CELL COVERER-BURGLARY INVESTIGATOR-C SPEC NUM: [id number] RECD: 09/25/23 STATUS: LORENZO HURD NUM: [id number] ISABELLA: 09/25/23- SUBM DR: Manjeet Sargent II, MD ENTERED: 09/25/23 [facility] DR: Alyssa Butterfield MD SPEC TYPE: Cytology DEPT: CN ENTERED BY: [id number] RECV BY: [id number] ORDERED: Cyto Prepstain, DIFF QWIK, PAPSTN ORDERED: Cyto Prepstain, DIFF QWIK, PAPSTN Pathological Diagnosis Cerebrospinal fluid, cytology: -No evidence of malignant cell -At least 2 RBC and only rare leukocytes are noted, most of which are also slightly degenerated Clinical Information headaches,dizziness Gross Description Received fresh is 3.5 ml colorless clear unfixed fluid for cytology said to have been obtained as spinal fluid. Cytospin slides are stained with Papanicolaou and Diff-Quik stains. (CC/nh) Microscopic Description Microscopic examinations are performed Specimen: [id number] Received: 09/25/23 Status: LORENZO Hurd Num: [id number] Spec Type: Cytology Subm Dr: Manjeet Sargent II, MD Tissues: A CSF (CSF) Procedures: Cyto Prepstain, DIFF QWIK, PAPSTN Patient: Jackie Whtiewon Cohen [id number] (Continued) Specimen: [id number] Received: 09/25/23 (Continued) Signed (signature on file) Ashley Coulter MD 09/27/23 1158 Specimen: [id number] Received: 09/25/23 Status: LORENZO Robbnathan Num: [id number] Spec Type: Cytology Subm Dr: Manjeet Sargent II, MD Tissues: A CSF (CSF) Procedures: Cyto Prepstain, DIFF QWIK, PAPSTN Patient: ChristopherRebecca Cohen [id number] (Continued) Specimen: [id number] Received: 09/25/23 (Continued) CPT Codes 31026 Specimen: [id number] Received: 09/25/23 Status: LORENZO Helen Num: [id number] Spec Type: Cytology Subm Dr: Manjeet Sargent II, MD Tissues: A CSF (CSF) Procedures: Cyto Prepstain, DIFF QCHANI SANTIAGO Patient: Rebecca White Vicki [id number] (Continued) Signed (signature on file) Bo-Jimmy Coulter MD 09/27/23 1158 Normal [facility] Lymphocyte count CSFOrdered By: Naya Butler on 09-25-[address] [facility] Comment on above: The reference interv al and other method performance specifications have not been established for this body fluid. The test result must be integrated into the clinical context for interpretation. Manual cerebrospinal fluid e rythrocytes count (number/volume)Ordered By: Naya Butler on 09-25-2023 RBC Manual cnt (CSF) [#/Vol] 1 /uL [facility] Comment on above: The reference interv al and other method performance specifications have not been established for this body fluid. The test result must be integrated into the clinical context for interpretation. RBC Manual cnt (CSF) [#/Vol] Manual cerebrospinal fluid erythrocytes count (number/volume) [facility] Comment on above: The reference interv al and other method performance specifications have not been established for this body fluid. The test result must be integrated into the clinical context for interpretation. Meningitis+Encephalitis path ogens DNA and RNA panel - Cerebral spinal fluid by NIMA wiOrdered By: Naya Butler on 09-25-2023 Meningitis+Encephalitis pathogens DNA and RNA panel [facility]A+non-probe (CSF) Meningitis+Encephalitis pathogens DNA and RNA panel - Cerebral spinal fluid by NIMA wi [facility] Meningitis+Encephalitis pathogens DNA and RNA panel NIMA+non-probe (CSF) [facility] Monocyte count CSFOrdered By : Naya Butler on 09-25-2023 CSF Monocytes N/A [facility] Neutrophil count CSFOrdered By: Naya Butler on 09-25-2023 CSF Neutrophils N/A [facility] No Panel InformationOrdered By: Naya Butler on 09-25-2023 CSF Total Cells Counted 3 [facility] CSF Tube Number Tube number: 4 [facility] Nucleated cells [#/volume] i n Cerebral spinal fluid by Manual countOrdered By: Naya Butler on 09-25-2023 Nucleated cells Manual cnt (CSF) [#/Vol] 0.002 10*3/uL 0- [facility] Nucleated cells Manual cnt (CSF) [#/Vol] Nucleated cells [#/volume] in Cerebral spinal fluid by Manual count 0- [facility] Protein [Mass/volume] in Cer ebral spinal fluidOrdered By: Naya Butler on 09-25-2023 Protein (CSF) [Mass/Vol] 23 mg/dL [facility] Protein (CSF) [Mass/Vol] Protein [Mass/volume] in Cerebral spinal fluid [facility] Total Protein, CSF #2on 09-06 Total Protein, CSF #2 23 mg/dL Normal [facility] Comment on above: Result Comment: PERF ORMED BY: [place] [address] PATHOLOGIST [employer] KELLY WIGGINS M.D. Performed By: #### C SF GLU #2, CSF TP #2 #### [address] Total Protein, Spinal Fluido n 09-25-2023 Total Protein, Spinal Fluid 26 mg/dL Normal [facility] Comment on above: Result Comment: PERF ORMED BY: [place] [address] PATHOLOGIST [employer] KELLY WIGGINS M.D. Performed By: #### C SF TP, CSF PCR PANEL, CSFCCDIFF #2, GS, CSF GLU, AERC #### [address] MR head/brain wo/w conon MR head/brain wo/w con [facility] [place] [place] [address] MRI Report Signed Patient: Rebecca White MR#: [id number] [birth year] : 1990 Acct:[id number] Age/Sex: 33 / F ADM Date: 08/15/23 Loc: MR Room: Type: REG CLI Attending Dr: Bonnie Johnson DO Copies to: Bonnie Johnson DO Ordering Provider: Bonnie Johnson DO Date of Service: 08/15/23 MR/MR head/brain wo/w con: R27.0 MR head/brain wo/w con 08/15/2023 7:05 AM SIGN AND SYMPTOMS: Dizziness for 4 months PROTOCOL: Multiplanar multisequence MR images of the brain were obtained with and without IV contrast. CONTRAST: 20 mL of intravenous ProHance COMPARISON: None. FINDINGS: Extra axial spaces: Age appropriate. Hemorrhage: None. Ventricular system: Within normal limits. Basal cisterns: Within normal limits and not effaced. Cerebral parenchyma: Normal in signal. Midline shift: None.. Cerebellum: Within normal limits. Brainstem: Within normal limits. OTHER: Calvarium: Normal marrow signal. Vascular system: Satisfactory flow voids within the anterior and posterior circulation. There is flattening of the posterior lateral transverse sinuses bilaterally. Visualized Paranasal sinuses: Within normal limits. Visualized Orbits: There is prominence of CSF along the optic nerve sheath complex with tortuosity optic nerves. Visualized upper cervical spine: Within normal limits. Sella and skull base: There is flattening of the pituitary within the sella. This is atypical for the patient's age. MR/MR head/brain wo/w con IMPRESSION: No acute intracranial pathology or abnormal postcontrast enhancement. Findings described above suggest intracranial hypertension. Impression dictated by: Manjeet Sargent M.D.08/15/2023 2:50 PM Dictation Location: [place] [address] Transcribed By: [facility] 08/15/23 1450 Dictated By: Manjeet Sargent II, MD 08/15/23 1447 Signed By: 08/15/23 1450 Normal [facility] SARS/FLU A+B[facility]RSV [facility]-2023 SARS/FLU A+B/RSV by NAAT/Molecular FLU A PCR Negative (qualifier value) FLU B PCR Negative (qualifier value) RSV by PCR Negative (qualifier value) SARS CoV 2 Not detected (qualifier value) NOTE The Xpert Xpress SARS-CoV-2/Flu/RSV Plus test is a rapid, multiplexed real-time RT-PCR test intended for the simultaneous qualitative detection and differentiation of SARS-CoV-2, influenza A, influenza B and respiratory syncytial virus (RSV) viral RNA from individuals suspected of respiratory viral infection consistent with COVID-19 by their healthcare provider. This test has not been validated in asymptomatic patients. The Xpert Xpress SARS-CoV-2 test is intended for use by qualified and trained operators who are performing tests using either [facility] or [employer] systems and is limited to laboratories that meet the CLIA requirements to perform high and moderate complexity tests. The Xpert Xpress SARS-CoV-2/Flu/RSV Plus is only for use under the Food and Drug Administration's Emergency Use Authorization. Results are for the simultaneous detection and differentiation of SARS-CoV-2, influenza A, influenza B and RSV nucleic acids in clinical specimens. SARS-CoV-2, influenza A, influenza B and RSV RNA identified by this test are generally detectable in upper respiratory samples during the acute phase of infection. Positive results are indicative of the presence of the identified virus, but do not rule out bacterial infection or co-infection with other pathogens not detected by this test. Clinical correlation with patient history and other diagnostic information is necessary to determine patient infection status. The agent detected may not be the definite cause of disease. Negative results do not preclude SARS-CoV-2, influenza A, influenza B and RSV infection and should not be used as the sole basis for treatment or other patient management decisions. Negative results must be combined with clinical observations, patient history and epidemiological information. An Invalid result may occur with specimen-associated inhibition unable to be resolved with specimen repeat. Fact Sheet for Healthcare Providers: https://www.fda.gov/medi a/733543/download Fact Sheet for Patients: https://www.fda.gov/medi a/715052/download Normal [facility] Comment on above: Performed By: #### C OVFLR #### [facility] ([id number]) [address] [place] [address] Cytology Cervical or vaginal smear or scraping studyOrdered By: Chelita Mayen on 03-05-2023 [facility] PAP ACOG PANEL 2: 30 to 65on 03-03-2022 . . Normal [facility] Comment on above: Result Comment: Perf ormed at: WB Performed By: #### [id number] #### [facility] [address] [address] [address] Roc Coulter Age Gdln ACOG Testing 30-65 Normal [facility] Comment on above: Performed By: #### [id number] #### [facility] [address] [address] [address] Roc Coulter DIAGNOSIS: Comment Normal [facility] Comment on above: Result Comment: NEGA TIVE FOR INTRAEPITHELIAL LESION OR MALIGNANCY. Performed at: WB Performed By: #### [id number] #### [facility] [address] [place] [address] Dr. Roc Coulter HPV Aptima Negative Normal Negative [facility] Comment on above: Result Comment: This nucleic acid amplification test detects fourteen high-risk HPV types (16,18,31,33,35,39,45,51,52,56,58,59,66,68) without differentiation. Performed at: =G Performed By: #### [id number] #### [facility] [address] [place] [address] Dr. Roc Coulter HPV Genotype Reflex Comment Normal [facility] Comment on above: Result Comment: Crit eria not met, HPV Genotype not performed. Performed at: WB Performed By: #### [id number] #### [facility] [address] [place] [address] Dr. Roc Coulter Methodology: Comment Normal [facility] Comment on above: Result Comment: This liquid based ThinPrep(R) pap test was screened with the use of an image guided system. Performed at: WB Performed By: #### [id number] #### [facility] [address] [place] [address] Dr. Roc Coulter Note: Comment Normal [facility] Comment on above: Result Comment: The Pap smear is a screening test designed to aid in the detection of premalignant and malignant conditions of the uterine cervix. It is not a diagnostic procedure and should not be used as the sole means of detecting cervical cancer. Both false-positive and false-negative reports do occur. . Performed at: WB Performed By: #### [id number] #### [facility] [address] [place] [address] Dr. Roc Coulter Performed by: Comment Normal [facility] Comment on above: Result Comment: Lina Quach, Rice Drier Operator (ASCP) Performed at: WB Performed By: #### [id number] #### [facility] [address] [place] [address] Dr. Roc Coulter Specimen adequacy: Comment Normal [facility] Comment on above: Result Comment: Sati sfactory for evaluation. Endocervical and/or squamous metaplastic cells (endocervical component) are present. Performed at: WB Performed By: #### [id number] #### [facility] [address] [place] [address] Dr. Roc Coulter CBC AUTO DIFFon 08-24-2021 BASO # 0.0 103/ul Normal 0.0-0.1 [facility] Comment on above: Performed By: #### C BC #### [facility] [address] [place] [address] Dr. Roc Coulter Basophils/100 WBC (Bld) 0.3 % Normal 0.2-2.0 [facility] Comment on above: Performed By: #### C BC #### [facility] [address] [place] [address] Dr. Roc Coulter EO # 0.1 103/ul Normal 0.0-0.7 [facility] Comment on above: Performed By: #### C BC #### [facility] [address] [place] [address] Dr. Roc Coulter Eosinophils/100 WBC (Bld) 1.0 % Normal 0.9-7.0 [facility] Comment on above: Performed By: #### C BC #### [facility] [address] [place] [address] Dr. Roc Coulter Erythrocyte distribution width (RBC) [Ratio] 16.6 % Critically high 11.0-15.0 [facility] Comment on above: Performed By: #### C BC #### [facility] [address] [place] [address] Dr. Roc Coulter Hematocrit (Bld) [Volume fraction] 30.2 % Critically low 36.0-48.0 [facility] Comment on above: Performed By: #### C BC #### [facility] [address] [place] [address] Dr. Roc Coulter Hemoglobin (Bld) [Mass/Vol] 9.6 g/dL Critically low 12.0-16.0 [facility] Comment on above: Performed By: #### C BC #### [facility] [address] [place] [address] Dr. Roc Coulter IG # 0.10 10e3/ul Critically high 0.00-0.03 [facility] Comment on above: Performed By: #### C BC #### [facility] [address] [place] [address] Dr. Roc Coulter IG % 0.7 % Critically high 0.0-0.5 [facility] Comment on above: Performed By: #### C BC #### [facility] [address] [place] [address] Dr. Roc Coutler LYMPH # 2.5 103/ul Normal 1.2-3.8 [facility] Comment on above: Performed By: #### C BC #### [facility] [address] [place] [address] Dr. Roc Coulter Lymphocytes/100 WBC (Bld) 18.6 % Critically low 20.5-60.0 [facility] Comment on above: Performed By: #### C BC #### [facility] [address] [place] [address] Dr. Roc Coulter MANUAL DIFF REQ NO Normal [facility] Comment on above: Performed By: #### C BC #### [facility] [address] [place] [address] Dr. Roc Coulter MCH (RBC) [Entitic mass] 27.9 pg Normal 26.7-34.0 [facility] Comment on above: Performed By: #### C BC #### [facility] [address] [place] [address] Dr. Roc Coulter MCHC (RBC) [Mass/Vol] 31.8 g/dL Normal 29.9-35.2 [facility] Comment on above: Performed By: #### C BC #### [facility] [address] [place] [address] Dr. Roc Coulter MCV (RBC) [Entitic vol] 87.8 fL Normal 81.0-99.0 [facility] Comment on above: Performed By: #### C BC #### [facility] [address] [place] [address] Dr. Roc Coulter MONO # 0.9 103/ul Critically high 0.3-0.8 [facility] Comment on above: Performed By: #### C BC #### [facility] [address] [place] [address] Dr. Roc Coulter Monocytes/100 WBC (Bld) 6.7 % Normal 1.7-12.0 [facility] Comment on above: Performed By: #### C BC #### [facility] [address] [place] [address] Dr. Roc Coulter NEUT # 9.8 103/ul Critically high 1.4-6.5 [facility] Comment on above: Performed By: #### C BC #### [facility] [address] [place] [address] Dr. Roc Couletr Neutrophils/100 WBC (Bld) 72.7 % Normal 43.0-75.0 [facility] Comment on above: Performed By: #### C BC #### [facility] [address] [place] [address] Dr. Roc Coulter Platelet mean volume (Bld) [Entitic vol] 10.4 fL Normal 9.5-13.5 [facility] Comment on above: Performed By: #### C BC #### [facility] [address] [place] [address] Dr. Roc Coulter PLT 228 103/ul Normal 150-450 [facility] Comment on above: Performed By: #### C BC #### [facility] [address] [place] [address] Dr. Roc Coulter RBC 3.44 106/ul Critically low 4.20-5.40 [facility] Comment on above: Performed By: #### C BC #### [facility] [address] [address] [address] Roc Coulter WBC 13.4 103/ul Critically high 4.0-11.0 [facility] Comment on above: Performed By: #### C BC #### [facility] [address] [address] [address] Roc Coulter CBC AUTO DIFFon 08-21-2021 BASO # 0.0 103/ul Normal 0.0-0.1 [facility] Comment on above: Performed By: #### C BC ####[facility] [address] [address]Dr. Roc Coulter Basophils/100 WBC (Bld) 0.5 % Normal 0.2-2.0 [facility] Comment on above: Performed By: #### C BC ####[facility] [address] [place], [place] [address]Dr. Roc Coulter EO # 0.1 103/ul Normal 0.0-0.7 [facility] Comment on above: Performed By: #### C BC ####[facility] [address] [place], [place] [address]Dr. Roc Coulter Eosinophils/100 WBC (Bld) 1.1 % Normal 0.9-7.0 [facility] Comment on above: Performed By: #### C BC ####[facility] [address] [address]Dr. Roc Coulter Erythrocyte distribution width (RBC) [Ratio] 16.1 % Critically high 11.0-15.0 [facility] Comment on above: Performed By: #### C BC ####[facility] [address] [place], [place] [address]Dr. Roc Coulter Hematocrit (Bld) [Volume fraction] 36.0 % Normal 36.0-48.0 [facility] Comment on above: Performed By: #### C BC ####[facility] [address] [place], [place] [address]Dr. Rco Coulter Hemoglobin (Bld) [Mass/Vol] 11.7 g/dL Critically low 12.0-16.0 [facility] Comment on above: Performed By: #### C BC ####[facility] [address] [address]DrWendy Coulter IG # 0.08 10e3/ul Critically high 0.00-0.03 [facility] Comment on above: Performed By: #### C BC ####[facility] [address] [address]DrWendy Coulter IG % 0.9 % Critically high 0.0-0.5 [facility] Comment on above: Performed By: #### C BC ####[facility] [address] [place], [place] [address]DrWendy Coulter LYMPH # 1.8 103/ul Normal 1.2-3.8 [facility] Comment on above: Performed By: #### C BC ####[facility] [address] [place], [place] [address]DrWendy Coulter Lymphocytes/100 WBC (Bld) 20.8 % Normal 20.5-60.0 [facility] Comment on above: Performed By: #### C BC ####[facility] [address] [place], [place] [address]DrWendy Coulter MANUAL DIFF REQ NO Normal [facility] Comment on above: Performed By: #### C BC ####[facility] [address] [place], [place] [address]DrWendy Coulter MCH (RBC) [Entitic mass] 28.0 pg Normal 26.7-34.0 [facility] Comment on above: Performed By: #### C BC ####[facility] [address] [place], [place] [address]DrWendy Coulter MCHC (RBC) [Mass/Vol] 32.5 g/dL Normal 29.9-35.2 [facility] Comment on above: Performed By: #### C BC ####[facility] [address] [place], [place] [address]DrWendy Coulter MCV (RBC) [Entitic vol] 86.1 fL Normal 81.0-99.0 [facility] Comment on above: Performed By: #### C BC ####[facility] [address] [place], [place] [address]DrWendy Roc Coulter MONO # 0.8 103/ul Normal 0.3-0.8 [facility] Comment on above: Performed By: #### C BC ####[facility] [address] [place], [place] [address]DrWendy Roc Yfn Monocytes/100 WBC (Bld) 9.6 % Normal 1.7-12.0 [facility] Comment on above: Performed By: #### C BC ####[facility] [address] [place], [place] [address]DrWendy Roc Coulter NEUT # 5.9 103/ul Normal 1.4-6.5 [facility] Comment on above: Performed By: #### C BC ####[facility] [address] [place], [place] [address]Dr. Roc Yfn Neutrophils/100 WBC (Bld) 67.1 % Normal 43.0-75.0 [facility] Comment on above: Performed By: #### C BC ####[facility] [address] [place], [place] [address]DrWendy Roc Yfn Platelet mean volume (Bld) [Entitic vol] 10.6 fL Normal 9.5-13.5 [facility] Comment on above: Performed By: #### C BC ####[facility] [address] [place], [place] [address]Dr. Roc Yfn PLT 235 103/ul Normal 150-450 [facility] Comment on above: Performed By: #### C BC ####[facility] [address] [place], [place] [address]DrWendy Octaviaflorence Coulter RBC 4.18 106/ul Critically low 4.20-5.40 [facility] Comment on above: Performed By: #### C BC ####[facility] [address] [place], [place] [address]DrWendy Coulter WBC 8.8 103/ul Normal 4.0-11.0 [facility] Comment on above: Performed By: #### C BC ####[facility] [address] [place], [place] [address]MoDr. Roc Coulter Covid-19 PCR (CVDTB)on 08-05 SARS-CoV-2 (COVID-19) RNA NIMA+probe Ql (Unsp spec) Not detected Normal NOT DETECTED [facility] Comment on above: Result Comment: When diagnostic [...] for this test is supported by the [employer] and Human Service's declaration that [...] longer be used). Performed By: #### C VDTB #### [facility] [address] [address] [address] Roc Coulter DRUG SCREEN RAPID (URINE)on 08-21-2021 AMP Negative Normal NEGATIVE [facility] Comment on above: Performed By: #### D RUGRPD #### [facility] [address] [id number] Roc Coulter BAR Negative Normal NEGATIVE [facility] Comment on above: Performed By: #### D RUGRPD #### [facility] [id number] Roc Coulter BUP Negative Normal NEGATIVE [facility] Comment on above: Performed By: #### D RUGRPD #### [facility] [address] [address] [address] Roc Coulter BZO Negative Normal NEGATIVE [facility] Comment on above: Performed By: #### D RUGRPD #### [facility] [address] [address] [address] Roc Coulter SHAYY Negative Normal NEGATIVE [facility] Comment on above: Performed By: #### D RUGRPD #### [facility] [address] [place] [address] Dr. Roc Coulter CUT-OFFS SEE BELOW Normal [facility] Comment on above: Result Comment: AMP (Amphetamine): 500ng/mL, BAR (Barbituates): 200 ng/mL, BZO (Benzodiazepines): 150 ng/mL, BUP (Buprenorphine): 10 ng/mL, SHAYY (Cocaine): 150 ng/mL, mAMP (Methamphetamine): 500 ng/mL, MTD (Methadone): 200 ng/mL, OPI (Opiates): 100 ng/mL, OXY (Oxycodone): 100 ng/mL, PCP (Phencyclidine): 25 ng/mL, PPX (Propoxyphene): 300 ng/mL, THC (Cannabinoids): 50 ng/mL, TCA (Trycyclic Antidepressants): 300 ng/mL Performed By: #### D RUGRPD #### [facility] [address] [place] [address] Dr. Roc Coulter DRUG CUT HEADER DRUG CLASS TEST SYST EM CUT-OFF CONCENTRATIONS ARE FOLLOWS: Normal [facility] Comment on above: Performed By: #### D RUGRPD #### [facility] [address] [place] [address] Dr. Roc Coulter mAMP Negative Normal NEGATIVE [facility] Comment on above: Performed By: #### D RUGRPD #### [facility] [address] [place] [address] Dr. Roc Coulter MTD Negative Normal NEGATIVE [facility] Comment on above: Performed By: #### D RUGRPD #### [facility] [address] [place] [address] Dr. Roc Coulter OPI Negative Normal NEGATIVE [facility] Comment on above: Performed By: #### D RUGRPD #### [facility] [address] [place] [address] Dr. Roc Coulter OXY Negative Normal NEGATIVE [facility] Comment on above: Performed By: #### D RUGRPD #### [facility] [address] [address] [address] Roc Coulter PCP Negative Normal NEGATIVE [facility] Comment on above: Performed By: #### D RUGRPD #### [facility] [address] [address] [address] Roc Coulter PPX Negative Normal NEGATIVE [facility] Comment on above: Performed By: #### D RUGRPD #### [facility] [address] [address] [address] Roc Coulter TCA Negative Normal NEGATIVE [facility] Comment on above: Performed By: #### D RUGRPD #### [facility] [address] [address] [address] Roc Coulter THC Negative Normal NEGATIVE [facility] Comment on above: Performed By: #### D RUGRPD #### [facility] [address] [address] [address] Roc Coulter TYPE AND SCREENon 08-21-2021 TYPE AND SCREEN Negative Normal [facility] Comment on above: Performed By: #### T NS ####[facility] [address] [address]Dr. Roc Coulter US PREG BIOPHY W NON [...] KULWINDER VENEGAS Date: 2021-08-19 16:43 Normal [facility] US PREG GROWTHon 08-01-2021 US PREG GROWTH [...] KULWINDER VENEGAS Date: 2021-08-01 07:24 Normal [facility] GROUP B STREP CULTUREon 07-07 S. agalactiae Ag Ql (Unsp spec) Culture Observations: NEGATIVE FOR GROUP B STREPTOCOCCUS. Normal [facility] Comment on above: Performed By: #### G BSCX ####[facility] [address] [place], [place] [address]Qd. Octaviaflorence Coulter US PREG GROWTHon 06-09-2021 US PREG [...] by: KULWINDER VENEGAS Date: 2021-06-09 16:45 Normal [facility] US PREG INCOMPLETE ANATOMYon 06-09-2021 US PREG INCOMPLETE ANATOMY EXAMINATION: US PREG INCOMPLETE ANATOMY HISTORY: screening COMPARISON: 05/06/2021 FINDINGS: Normal visualized anatomy: RVOT, LVOT, kidneys, spine, orbits Amniotic fluid index: 19.1 cm, normal Heart rate: 153 bpm IMPRESSION: Normal observed anatomy Electronically authenticated by: KULWINDER VENEGAS Date: 2021-06-09 16:46 Normal [facility] GTT 3 HR PREGon 05-28-2021 Glucose [Mass/Vol] 83 mg/dL Normal 74-106 [facility] Comment on above: Performed By: #### G TT3P #### [facility] [address] [place] [address] Dr. Roc Coulter Glucose [Mass/Vol] 176 mg/dL Normal [facility] Comment on above: Performed By: #### G TT3P #### [facility] [address] [place] [address] Dr. Roc Coulter Glucose [Mass/Vol] 125 mg/dL Normal [facility] Comment on above: Performed By: #### G TT3P #### [facility] [address] [address] [address] Roc Coulter Glucose [Mass/Vol] 97 mg/dL Normal [facility] Comment on above: Performed By: #### G TT3P #### [facility] [address] [place] [address] Dr. Roc Coulter GLUCOSE - 1HRon 05-06-2021 Glucose [Mass/Vol] 173 mg/dL Critically high 74-106 [facility] Comment on above: Performed By: #### G LU1HR #### [facility] [address] [place] [address] Dr. Roc Coulter HEMOGRAM AND PLATELon 2021 Hematocrit (Bld) [Volume fraction] 34.5 % Critically low 36.0-48.0 [facility] Comment on above: Performed By: #### H H #### [facility] [address] [place] [address] Dr. Roc Coulter Hemoglobin (Bld) [Mass/Vol] 10.8 g/dL Critically low 12.0-16.0 [facility] Comment on above: Performed By: #### H H #### [facility] [address] [place] [address] Dr. Roc Coulter MCH (RBC) [Entitic mass] 27.9 pg Normal 26.7-34.0 [facility] Comment on above: Performed By: #### H H #### [facility] [address] [place] [address] Dr. Roc Coulter MCHC (RBC) [Mass/Vol] 31.3 g/dL Normal 29.9-35.2 [facility] Comment on above: Performed By: #### H H #### [facility] [address] [place] [address] Dr. Roc Coulter MCV (RBC) [Entitic vol] 89.1 fL Normal 81.0-99.0 [facility] Comment on above: Performed By: #### H H #### [facility] [address] [place] [address] Dr. Roc Coulter PLT 298 103/ul Normal 150-450 [facility] Comment on above: Performed By: #### H H #### [facility] [address] [place] [address] Dr. Roc Coulter RBC 3.87 106/ul Critically low 4.20-5.40 [facility] Comment on above: Performed By: #### H H #### [facility] [address] [place] [address] Dr. Roc Coutler WBC 8.1 103/ul Normal 4.0-11.0 [facility] Comment on above: Performed By: #### H H #### [facility] [address] [address] [address] Roc Coulter US PREG ANATOMY SINGLEon US PREG ANATOMY SINGLE EXAMINATION: US P REG ANATOMY SINGLE HISTORY: anatomy study COMPARISON: No [...] by: KULWINDER VENEGAS Date: 2021-05-06 16:06 Normal [facility] [place] Progesteroneon 10-29-2020 Progesterone 9.3 ng/mL Normal [facility] Comment on above: Result Comment: Mens trual Cycle Progesterone Reference Ranges: Follicular:<1.0 ng/mL Ovulation:<12.1 ng/mL Luteal:1.8 to 23.9 ng/mL Progesterone Reference Ranges vary by gestational period: First Trimester:11.0 to 44.3 ng/mL Second trimester: 25.4 to 83.3 ng/mL Third trimester: 58.7 to 214 ng/mL Post menopausal Progesterone:<0.5 ng/mL Reference: 1. Progesterone (Progesterone III) [package insert V 1.0 [place] Islander]. [facility], [place], [place]. November 2014. Performed By: #### P ELIZABETH #### [facility] [address] [place], [place] [address] OBSOLETEon 10-03-2020 OBSOLETE Refill (ENDOCC) -------- REBECCA WHITE ([id number]) 1990 F Date Time Provider Department 10/03/20 JOYCELYN ALLEN [facility] During your visit today, we recorded the following information about you: Shira Ruiz Ma 10/05/2020 11:46 AM Signed Requester: Pharmacy Patients [...] schedule the yearly follow up with Dr. Allen as noted below. Allergies As of Date: [...] (FLONASE) 50 mcg/actuation nasal spray Use 1 [place] in the nose as needed. - sertraline [...] Status:Closed by JEANIE GARCIA on 10/20/20 Normal [facility] Estradiol-17Bon 09-10-2020 Estradiol-17B 57 pg/mL Normal [facility] Comment on above: Result Comment: This [...] 3243 pg/mL Second trimester : 1561 TO 05144 pg/mL Third trimester : 8285 to >49010 pg/mL Post-menopausal Estradiol reference range: < 41 pg/mL Reference: 1. Estradiol - E2 (Estradiol III) [package insert V 3.0 [place]er]. [facility], [place], [place], July 2015. Performed By: #### I NSULN, DHEAS, VITD, HBA1C, DIONISIO #### [facility] [address] [place], [place] [address] HCG, Quantitative Blon 09-10 HCG, Quantitative Bl <0.6 Normal <5.0 [facility] Comment on above: Result Comment: NEGWhitney JULIO Performed By: #### I NSULN, DHEAS, VITD, HBA1C, DIONISIO #### [facility] [address] [place], [place] [address] Progesteroneon 09-10-2020 Progesterone 0.2 ng/mL Normal [facility] Comment on above: Result Comment: Mens trual Cycle Progesterone Reference Ranges: Follicular:<1.0 ng/mL Ovulation:<12.1 ng/mL Luteal:1.8 to 23.9 ng/mL Progesterone Reference Ranges vary by gestational period: First Trimester:11.0 to 44.3 ng/mL Second trimester: 25.4 to 83.3 ng/mL Third trimester: 58.7 to 214 ng/mL Post menopausal Progesterone:<0.5 ng/mL Reference: 1. Progesterone (Progesterone III) [package insert V 1.0 [place]er]. [facility], [place]. November 2014. Performed By: #### I NSULN, DHEAS, VITD, HBA1C, DIONISIO #### [facility] [address] [place], [place] [address] CNPNon 09-09-2020 [place] Telephone (JANN) -------- REBECCA WHITE ([id number]) 1990 F Date Time Provider Department 09/09/20 HALLE LEACH During your visit today, we recorded the following information about you: Sheela Trevino CERAMIC TILER 09/09/2020 9:12 AM Signed Pt called Negative home test Day 42 of her cycle Please call [phone] Ok to leave a message Rafaela Millard [...] amenorrhea [N91.1] Order(s):HCG QUANTITATIVE [SQHCGQT] Order #: [id number] FUTURE PROGESTERONE BLD [SQPROG] Order #: [id number] FUTURE ESTRADIOL-17B BLD [SQE2] Order #: [id number] FUTURE SCHEDULE LAB TESTING [1659242] Order #: [id number] FUTURE Prescriptions as of 09/09/2020 - medroxyPROGESTERone (PROVERA) 10 mg tablet Take 1 tablet by mouth once daily for 10 days. - fluticasone (FLONASE) 50 mcg/actuation nasal spray Use 1 [place] in the nose as needed. - sertraline [...] Encounter Status:Closed by MAUR[facility]ILLA [facility] Telephone (REIMN) -------- WHITEREBECCA ([id number]) 1990 F Date Time Provider Department 09/03/20 HALLE LEACH During your visit today, we recorded the following information about you: Rafaela Millard RN 09/03/2020 8:22 AM Signed Patient sent a TMS chart message. Called the patient she verified [...] she used provera was May. Routing to [facility] for advisement Rafaela Millard RN September 03, 2020 8:22 AM Allergies As of Date: 09/03/2020 (No Known Allergies) Date Reviewed: 05/06/2020 Reviewed by: Liliane Drew - Fully Assessed Reason for Visit: Question [8167] Prescriptions as of 09/09/2020 - medroxyPROGESTERone (PROVERA) 10 mg tablet Take 1 tablet by mouth once daily for 10 days. - fluticasone (FLONASE) 50 mcg/actuation nasal spray Use 1 [place] in the nose as needed. - sertraline [...] Status:Closed by RAFAELA MILLARD on 09/09/20 Normal [facility] Progesteroneon 06-16-2020 Progesterone 14.3 ng/mL Normal [facility] Comment on above: Result Comment: Mens trual Cycle Progesterone Reference Ranges: Follicular:<1.0 ng/mL Ovulation:<12.1 ng/mL Luteal:1.8 to 23.9 ng/mL Progesterone Reference Ranges vary by gestational period: First Trimester:11.0 to 44.3 ng/mL Second trimester: 25.4 to 83.3 ng/mL Third trimester: 58.7 to 214 ng/mL Post menopausal Progesterone:<0.5 ng/mL Reference: 1. Progesterone (Progesterone III) [package insert V 1.0 [place] Islander]. [employer], [place], [place]. November 2014. Performed By: #### P ELIZABETH #### [place] [address] [place] [phone] Anti Germain Hormoneon 2020 Anti Germain Hormone 9.30 ng/mL High 0.58-8.[address] [facility] Comment on above: Performed By: #### I NSULN, DHEAS, VITD, HBA1C, GERMAIN #### [facility] [employer] [facility] [address] [place] [address] CBCon 05-06-2020 Absolute nRBC <0.01 Normal <0.01 [facility] Comment on above: Performed By: #### I NSULN, DHEAS, VITD, HBA1C, GERMAIN #### [facility] [employer] [facility] [address] [id number] Erythrocyte distribution width (RBC) [Ratio] 13.2 % Normal 11.5-15.0 [facility] Comment on above: Performed By: #### I NSULN, DHEAS, VITD, HBA1C, GERMAIN #### [facility] [employer] [facility] [address] [place] [address] Hematocrit (Bld) [Volume fraction] 44.5 % Normal 36.0-46.0 [facility] Comment on above: Performed By: #### I NSULN, DHEAS, VITD, HBA1CDIONISIO #### [place] [address] [place] [address] Hemoglobin (Bld) [Mass/Vol] 14.6 g/dL Normal 11.5-15.5 [facility] Comment on above: Performed By: #### I NSULN, DHEAS, VITD, HBA1CDIONISIO #### [place] [address] MCH 29.4 pG Normal 26.0-34.0 [facility] Comment on above: Performed By: #### I NSULN, DHEAS, VITD, HBA1CDIONISIO #### [place] [address] MCHC (RBC) [Mass/Vol] 32.8 g/dL Normal 30.5-36.0 [facility] Comment on above: Performed By: #### I NSULN, DHEAS, VITD, HBA1CDIONISIO #### [place] [address] MCV (RBC) [Entitic vol] 89.5 fL Normal 80.0-100.0 [facility] Comment on above: Performed By: #### I NSULN, DHEAS, VITD, HBA1CDIONISIO #### [place] [address] Platelet mean volume (Bld) [Entitic vol] 9.6 fL Normal 9.0-12.7 [facility] Comment on above: Performed By: #### I NSULN, DHEAS, VITD, HBA1CDIONISIO #### [place] [address] Platelets (Bld) [#/Vol] 314 10*3/uL Normal 150-400 [facility] Comment on above: Performed By: #### I NSULN, DHEAS, VITD, HBA1C, DIONISIO #### [facility] [address] [place], [place] [id number] RBC (Bld) [#/Vol] 4.97 10*6/uL Normal 3.90-5.[address] [facility] Comment on above: Performed By: #### I NSULN, DHEAS, VITD, HBA1C, DIONISIO #### [facility] [address] [place], [place] [address] WBC (Bld) [#/Vol] 8.64 10*3/uL Normal 3.70-11.[address] [facility] Comment on above: Performed By: #### I NSULN, DHEAS, VITD, HBA1C, DIONISIO #### [facility] [address] [place] [id number] CNOVon 05-06-2020 CNOV Office Visit (TYV) -------- REBECCA WHITE ([id number]) 1990 F Date Time Provider Department 05/06/20 8:45 AM HALLE LEACH During your visit today, we recorded the following information about you: Pulse Blood pressure Weight Height 64/minute 119/64 104.6 kg 1.676 m Last Period 01/08/20 Liliane Drew MA 05/06/2020 8:50 AM Signed [facility] Date: 05/06/2020 Consultation Requested By: Dr Joycelyn Allen Rebecca White is a 30 year old [...] Hysteroscopy Laparoscopy OPK (Ovulation Predictor Kit) Ovarian [place]ner Saline Ultrasound Semen Analysis Ultrasound Other (See comments) Prior Fertility Eval Date tried estradiol at age 15 1/2 years to regulate period x 2, resulted no period MENSTRUAL HISTORY: Menarche Age: 13 1/2 year old Length of Cycle: no period since -2019, last year about 2 periods in 1 year Irregular Days: 6 days, sometimes less Menstrual Flow: Moderate Menstrual Symptoms: Breast Tenderness,Mood Changes,Bloating,Crampin g Patient's last menstrual period was 01/08/2020. PAST MEDICAL HISTORY Diagnosis Date - Irregular menstrual cycle - PCOS (polycystic ovarian syndrome) since age of 14 PAST SURGICAL HISTORY Procedure Laterality Date - EXTRACTION ERUPTED TOOTH removal of 2 wisdom teeth - PAST SURGICAL HISTORY OF 07/2003 Left adrenal gland removed No family history on file. 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 - sertraline [...] with more than 50% of the total mowo-lv-hrot time of the visit in counseling / coordination of care. Medical Decision Making Consultation requested by Dr. Joycelyn Allen MD [address] [place] [address] Dr LARA LAGOS [phone] for an opinion regarding irregular period and my recommendations will be (more content not included)... Normal [facility] CONSULT PROGon 05-06-2020 CONSULT PROG HNO ID: [id number] Author: Liliane Whitley) Rajendra Service: ? Author Type: Actuarial Trainee Type: Consult Progress Note Filed: 05/11/2020 7:30 PM Note Text: [facility] Date: 05/06/2020 Consultation Requested By: Dr Joycelyn Allen Rebecca White is a 30 year old [...] Hysteroscopy Laparoscopy OPK (Ovulation Predictor Kit) Ovarian [place] Saline Ultrasound Semen Analysis Ultrasound Other (See comments) Prior Fertility Eval Date tried estradiol at age 15 1/2 years to regulate period x 2, resulted no period MENSTRUAL HISTORY: Menarche Age: 13 1/2 year old Length of Cycle: no period since , last year about 2 periods in 1 year Irregular Days: 6 days, sometimes less Menstrual Flow: Moderate Menstrual Symptoms: Breast Tenderness,Mood Changes,Bloating,Crampin g Patient's last menstrual period was 01/08/2020. PAST MEDICAL HISTORY Diagnosis Date - Irregular menstrual cycle - PCOS (polycystic ovarian syndrome) since age of 14 PAST SURGICAL HISTORY Procedure Laterality Date - EXTRACTION ERUPTED TOOTH removal of 2 wisdom teeth - PAST SURGICAL HISTORY OF 07/2003 Left adrenal gland removed No family history on file. 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 - sertraline [...] with more than 50% of the total qbvj-ck-ehtv time of the visit in counseling / coordination of care. Medical Decision Making Consultation requested by Dr. Joycelyn Allen MD [address] [place] [address] [place] [phone] for an opinion regarding irregular period and my recommendations will be communicated back to the requesting physician by way of shared Medical record or letter via US mail , signature - MD Shirin Agosto MD Normal [facility] Comp Metabolic Panelon 05-06 Albumin [Mass/Vol] 4.2 g/dL Normal 3.9-4.9 [facility] Comment on above: Performed By: #### I NSULN, DHEAS, VITD, HBA1C, GERMAIN #### [facility] [address] [place] [address] ALP [Catalytic activity/Vol] 81 U/L Normal 34-123 [facility] Comment on above: Performed By: #### I NSULN, DHEAS, VITD, HBA1C, GERMAIN #### [place] [address] [place] [address] ALT [Catalytic activity/Vol] 18 U/L Normal 7-38 [facility] Comment on above: Performed By: #### I NSULN, DHEAS, VITD, HBA1C, GERMAIN #### [facility] [address] [place] [address] Anion gap [Moles/Vol] 13 mmol/L Normal 9-18 [facility] Comment on above: Performed By: #### I NSULN, DHEAS, VITD, HBA1C, GERMAIN #### [facility] [address] [place] [phone] AST [Catalytic activity/Vol] 19 U/L Normal 13-35 [facility] Comment on above: Performed By: #### I NSULN, DHEAS, VITD, HBA1C, GERMAIN #### [facility] [address] [place] [id number] Bilirubin [Mass/Vol] 0.3 mg/dL Normal 0.2-1.3 [facility] Comment on above: Performed By: #### I NSULN, DHEAS, VITD, HBA1C, GERMAIN #### [facility] [address] [place] [address] Calcium [Mass/Vol] 9.3 mg/dL Normal 8.5-10.2 [facility] Comment on above: Performed By: #### I NSULN, DHEAS, VITD, HBA1C, GERMAIN #### [place] [address] [place] [address] Chloride [Moles/Vol] 103 mmol/L Normal 97-105 [facility] Comment on above: Performed By: #### I NSULN, DHEAS, VITD, HBA1C, GERMAIN #### [place] [address] [place] [address] CO2 [Moles/Vol] 24 mmol/L Normal 22-30 [facility] Comment on above: Performed By: #### I NSULN, DHEAS, VITD, HBA1C, GERMAIN #### [place] [address] Creatinine [Mass/Vol] 0.72 mg/dL Normal 0.58-0.96 [facility] Comment on above: Performed By: #### I NSULN, DHEAS, VITD, HBA1C, GERMAIN #### [place] [address] [place] [address] eGFR- Amer. >60 Normal [facility] Comment on above: Performed By: #### I NSULN, DHEAS, VITD, HBA1C, GERMAIN #### [place] [address] eGFR-All Other Races >60 Normal [facility] Comment on above: Result Comment: eGFR (Estimated [...] #### I NSULN, DHEAS, VITD, HBA1CDIONISIO #### [facility] [address] [place], [place] [address] Glucose [Mass/Vol] 85 mg/dL Normal 74-99 [facility] Comment on above: Result Comment: The [place] Diabetes Association (ADA) provides guidance for cutoff [...] Standards of Medical Care in Diabetes 2016, [place] Diabetes Association. Diabetes Care. 2016.39(Suppl 1). Performed By: #### I NSULN, DHEAS, VITD, HBA1C, DIONISIO #### [facility] [address] [place] [address] Potassium [Moles/Vol] 3.9 mmol/L Normal 3.7-5.1 [facility] Comment on above: Performed By: #### I NSULN, DHEAS, VITD, HBA1C, GERMAIN #### [facility] [address] [place], [place] [address] Protein [Mass/Vol] 7.4 g/dL Normal 6.3-8.0 [facility] Comment on above: Performed By: #### I NSULN, DHEAS, VITD, HBA1C, GERMAIN #### [facility] [address] [place], [place] [address] Sodium [Moles/Vol] 140 mmol/L Normal 136-144 [facility] Comment on above: Performed By: #### I NSULN, DHEAS, VITD, HBA1C, GERMAIN #### [facility] [address] [place] [address] Urea nitrogen [Mass/Vol] 9 mg/dL Normal 7-21 [facility] Comment on above: Performed By: #### I NSULN, DHEAS, VITD, HBA1C, GERMAIN #### [place] [address] [place] [address] DHEA-Son 05-06-2020 DHEA-S 154.9 ug/dL Normal 98.8-340.0 [facility] Comment on above: Result Comment: Refe rence ranges are age and gender specific. For additional information, reference range tables can be found in the laboratory test directory. The normal values are based on the following source: Dehydroepiandrosterone sulfate (DHEA S) [package insert V 17.0 [place] Islander]. [employer], [place], [place]: September 2012. Performed By: #### I NSULN, DHEAS, VITD, HBA1C, DIONISIO #### [place] [address] [place] [address] Hemoglobin A1con 05-06-2020 Glucose [Mass/Vol] 111 mg/dL Normal [facility] Comment on above: Result Comment: eAG: (Estimated average glucose) is a calculated value from HgbA1c and is territory account representative of the average blood glucose level in the last 2-3 month period. Performed By: #### I NSULN, DHEAS, VITD, HBA1C, DIONISIO #### [place] [address] [place] [address] HbA1c (Bld) [Mass fraction] 5.5 % Normal 4.3-5.6 [facility] Comment on above: Result Comment: [place] Diabetes Association guidelines indicate that patients with HgbA1c in the range 5.7-6.4% are at increased risk for development of diabetes, and intervention by lifestyle modification may be beneficial. HgbA1c greater or equal to 6.5% is considered diagnostic of diabetes. Performed By: #### I NSULN, DHEAS, VITD, HBA1C, DIONISIO #### [place] [address] [place], [place] [phone] Insulinon 05-06-2020 Insulin 16.4 mU/L Normal 3.0-25.0 [facility] Comment on above: Performed By: #### I NSULN, DHEAS, VITD, HBA1C, GERMAIN #### [facility] [address] [place], [place] [address] Testosterone, Tot/Fron 05-06 Testosterone [Mass/Vol] 77 ng/dL High 8-60 C [facility] Comment on above: Result Comment: (NOT E) ADDITIONAL INFORMATION Testing performed by Liquid Chromatography-Tandem Mass Spectrometry (LC-MS/MS). This test was developed and its performance characteristics determined by [facility] in a manner consistent with CLIA requirements. This test has not been cleared or approved by the U.S. Food and Drug Administration. Performed By: #### T FTEST #### [facility] [address] [place] [address] Testosterone, Free 1.54 ng/dL High 0.06-1.03 [facility] Comment on above: Result Comment: (NOT E) ADDITIONAL INFORMATION Testing performed by [facility]. This test was developed and its performance characteristics determined by [facility] in a manner consistent with CLIA requirements. This test has not been cleared or approved by the U.S. Food and Drug Administration. Performed By: #### T FTEST #### [facility] [address] [place] [id number] Vitamin D 25 Hydroxyon 05-06 Vitamin D 25 Hydroxy 24.7 ng/mL Low 31.0-80.0 [facility] Comment on above: Result Comment: Clas sification of 25 [place] Vitamin D status: Insufficiency/Moderate Deficiency: < or = 30 ng/mL Sufficiency/Optimal Levels: 31 to 80 ng/mL Toxicity: > 100 ng/mL Test performed by chemiluminescent immunoassay. Performed By: #### I NSULN, DHEAS, VITD, HBA1C, DIONISIO #### [place] [address] [place] [address] Creatinine,Urine,24hon 03-29 Creatinine,Urine,24h 1.713 g/24 hr Normal 0.8-1.8 C [facility] Comment on above: Performed By: #### I NSULN, DHEAS, VITD, HBA1C, GERMAIN #### [place] [address] [place] [address] Free Ben, UR LCMSMSon 03-29 Collect Lgth, UFRCRT 24 Normal [facility] Comment on above: Performed By: #### I NSULN, DHEAS, VITD, HBA1C, GERMAIN #### [place] [address] Creatinine [Mass/Vol] 214 mg/dL Normal [facility] Comment on above: Performed By: #### I NSULN, DHEAS, VITD, HBA1C, GERMAIN #### [place] [address] [place] [address] Total Volume, UFRCRT 710 Normal [facility] Comment on above: Performed By: #### I NSULN, DHEAS, VITD, HBA1C, GERMAIN #### [place] [address] UR Ben Free Interp SEE NOTE Normal [facility] Comment on above: Result Comment: (NOT E) INTERPRETIVE INFORMATION: Cortisol Urine Free by LC-MS/MS Access complete set of age- and/or gender-specific reference intervals for this test in the [facility] Test Directory ([facility]). This test was developed and its performance characteristics determined by [facility]. It has not been cleared or approved by the US Food and Drug Administration. This test was performed in a CLIA certified laboratory and is intended for clinical purposes. Performed by [facility], [address] [place] [address] [email or web address], Lin Rosales MD, Lab. Director Performed By: #### I NSULN, DHEAS, VITD, HBA1C, DIONISIO #### [facility] [address] [place], [place] [phone] UR Ben Free ug/d 14.5 ug/d Normal <=45.0 [facility] Comment on above: Performed By: #### I NSULN, DHEAS, VITD, HBA1C, GERMAIN #### [facility] [address] [place], [place] [address] UR Ben Free ug/L 20.40 ug/L Normal [facility] Comment on above: Performed By: #### I NSULN, DHEAS, VITD, HBA1C, DIONISIO #### [facility] [address] [place], [place] [address] UR Cortisol ug/g mechanical drawing teacher 9.53 ug/g PROFESSOR OF GEOLOGY Normal [facility] Comment on above: Result Comment: (NOT E) Reference Interval: Cortisol ug/g mechanical drawing teacher Female Prepubertal: Less than 25 ug/g mechanical drawing teacher 18 years and older: Less than 24 ug/g mechanical drawing teacher : Less than 59 ug/g mechanical drawing teacher Male Prepubertal: Less than 25 ug/g mechanical drawing teacher 18 years and older: Less than 32 ug/g mechanical drawing teacher Performed By: #### I NSULN, DHEAS, VITD, HBA1C, DIONISIO #### [facility] [address] [place], [place] [address] UR,Creatinine mg/day 1519 mg/d Normal 700-1600 [facility] Comment on above: Performed By: #### I NSULN, DHEAS, VITD, HBA1C, DIONISIO #### [facility] [address] [place], [place] [address] Period / Volumeon 03-29-2020 Collection End Date Normal [facility] Comment on above: Performed By: #### I NSULN, DHEAS, VITD, HBA1C, GERMAIN #### [facility] [employer] [address] [place] [id number] Collection End Time 929 [facility] Comment on above: Performed By: #### I NSULN, DHEAS, VITD, HBA1C, GERMAIN #### [facility] [employer] [address] [place] [phone] Collection Start Date [facility] Comment on above: Performed By: #### I NSULN, DHEAS, VITD, HBA1C, GERMAIN #### [facility] [address] [place] [id number] Collection Start Time 929 [facility] Comment on above: Performed By: #### I NSULN, DHEAS, VITD, HBA1C, GERMAIN #### [facility] [address] [place] [id number] Period [address] [facility] Comment on above: Performed By: #### I NSULN, DHEAS, VITD, HBA1C, GERMAIN #### [facility] [employer] [address] [place] [id number] Volume [address] [facility] Comment on above: Performed By: #### I NSULN, DHEAS, VITD, HBA1C, GERMAIN #### [facility] [address] [place] [id number] Vital Signs Date Time Vital Sign Value Performing Clinician Beltran curtis 03-06-2024 09:35-0500 Body height 165.1 cm [facility] 03-06-2024 09:35-0500 Body mass index (BMI) [Ratio] 45.6 kg/m2 [facility] 03-06-2024 09:35050 Body weight 124.39 kg [facility] 03-06-2024 09:35-0500 Diastolic blood pressure 62 mm[Hg] [facility] 03-06-2024 09:35-0500 Heart rate 62 /min [facility] 03-06-2024 09:35-0500 SaO2% (BldA) [Mass fraction] 96 % [facility] 03-06-2024 09:35-0500 Systolic blood pressure 108 mm[Hg] [facility] 03-06-2024 08:40-0500 Body mass index (BMI) [Ratio] 45.62 kg/m2 Ricci Harpreet DO Work Phone: [facility] 03-06-2024 08:40-0500 Body weight 124.34 kg Ricci Harpreet DO Work Phone: [facility] 03-06-2024 08:40-0500 Diastolic blood pressure 78 mm[Hg] Ricci Harpreet DO Work Phone: [facility] 03-06-2024 08:40-0500 Systolic blood pressure 120 mm[Hg] Ricci Harpreet DO Work Phone: [facility] 02-26-2024 10:01-0500 Body height 165.1 cm [facility] 02-26-2024 10:01-0500 Body mass index (BMI) [Ratio] 45.7 kg/m2 [facility] 02-26-2024 10:01-0500 Body weight 124.73 kg [facility] 02-26-2024 10:01-0500 Diastolic blood pressure 64 mm[Hg] [facility] 02-26-2024 10:01-0500 Heart rate 99 /min [facility] 02-26-2024 10:01-0500 Systolic blood pressure 111 mm[Hg] [facility] 02-14-2024 11:24-0500 Body height 165.1 cm [facility] 02-14-2024 11:24-0500 Body mass index (BMI) [Ratio] 45.7 kg/m2 [facility] 02-14-2024 11:24-0500 Body temperature 97.7 [degF] [facility] 02-14-2024 11:24-0500 Body weight 124.73 kg [facility] 02-14-2024 11:24-0500 Diastolic blood pressure 73 mm[Hg] [facility] 02-14-2024 11:24-0500 Heart rate 87 /min [facility] 02-14-2024 11:24-0500 SaO2% (BldA) [Mass fraction] 97 % [facility] 02-14-2024 11:24-0500 Systolic blood pressure 107 mm[Hg] [facility] 01-22-2024 13:01-0500 Body mass index (BMI) [Ratio] 45.43 kg/m2 Naya Butler BODY SHOP ESTIMATOR Work Phone: [facility] 01-22-2024 13:01-0500 Body weight 123.83 kg Naya Butler BODY SHOP ESTIMATOR Work Phone: [facility] 01-22-2024 13:01-0500 Diastolic blood pressure 70 mm[Hg] Naya Butler BODY SHOP ESTIMATOR Work Phone: [facility] 01-22-2024 13:01-0500 Heart rate 98 /min Naya Butler BODY SHOP ESTIMATOR Work Phone: [facility] 01-22-2024 13:01-0500 SaO2% (BldA) [Mass fraction] 96 % Naya Butler BODY SHOP ESTIMATOR Work Phone: [facility] 01-22-2024 13:01-0500 Systolic blood pressure 118 mm[Hg] Naya Butler BODY SHOP ESTIMATOR Work Phone: [facility] 01-17-2024 15:35-0500 Body height 165.1 cm [facility] 01-17-2024 15:35-0500 Body mass index (BMI) [Ratio] 44.7 kg/m2 [facility] 01-17-2024 15:35-0500 Body weight 122.01 kg [facility] 01-17-2024 15:35-0500 Diastolic blood pressure 68 mm[Hg] [facility] 01-17-2024 15:35-0500 Heart rate 78 /min [facility] 01-17-2024 15:35-0500 SaO2% (BldA) [Mass fraction] 98 % [facility] 01-17-2024 15:35-0500 Systolic blood pressure 110 mm[Hg] [facility] 12-24-2023 15:29-0500 Body height 165.1 cm Alyssa Butterfield MD Work Phone: [facility] 12-24-2023 15:29-0500 Body mass index (BMI) [Ratio] 43.9 kg/m2 Alyssa Butterfield MD Work Phone: [facility] 12-24-2023 15:29-0500 Body weight 119.74 kg Alyssa Butterfield MD Work Phone: [facility] 12-24-2023 15:29-0500 Diastolic blood pressure 78 mm[Hg] Alyssa Butterfield MD Work Phone: [facility] 12-24-2023 15:29-0500 Heart rate 86 /min Alyssa Butterfield MD Work Phone: [facility] 12-24-2023 15:29-0500 SaO2% (BldA) [Mass fraction] 97 % Alyssa Butterfield MD Work Phone: [facility] 12-24-2023 15:29-0500 Systolic blood pressure 110 mm[Hg] Alyssa Butterfield MD Work Phone: [facility] 11-20-2023 08:15-0400 Body mass index (BMI) [Ratio] 45.73 kg/m2 Christopher Alex DO Work Phone: [facility] 11-20-2023 08:15-0400 Body weight 124.65 kg Christopher Alex DO Work Phone: [facility] 11-20-2023 08:15-0400 Diastolic blood pressure 80 mm[Hg] Christopher Alex DO Work Phone: [facility] 11-20-2023 08:15-0400 Heart rate 91 /min Christopher Alex DO Work Phone: [facility] 11-20-2023 08:15-0400 SaO2% (BldA) [Mass fraction] 95 % Christopher Alex DO Work Phone: [facility] 11-20-2023 08:15-0400 Systolic blood pressure 131 mm[Hg] Bonnie Johnson DO Work Phone: [facility] 10-22-2023 13:54-0400 Body height 165.1 cm MD Alyssa Butterfield Work Phone: [facility] 10-22-2023 13:54-0400 Body mass index (BMI) [Ratio] 46.2 kg/m2 MD Alyssa Butterfield Work Phone: [facility] 10-22-2023 13:54-0400 Body weight 126.09 kg MD Alyssa Butterfield Work Phone: [facility] 10-22-2023 13:54-0400 Diastolic blood pressure 64 mm[Hg] MD Alyssa Butterfield Work Phone: [facility] 10-22-2023 13:54-0400 Heart rate 80 /min MD Alyssa Butterfield Work Phone: [facility] 10-22-2023 13:54-0400 Systolic blood pressure 96 mm[Hg] MD Alyssa Butterfield Work Phone: [facility] 10-15-2023 15:49-0400 Body height 165.1 cm Naya Butler BODY SHOP ESTIMATOR Work Phone: [facility] 10-15-2023 15:49-0400 Body mass index (BMI) [Ratio] 44.93 kg/m2 Naya Butler BODY SHOP ESTIMATOR Work Phone: [facility] 10-15-2023 15:49-0400 Body weight 122.47 kg Naya Butler BODY SHOP ESTIMATOR Work Phone: [facility] 10-15-2023 15:49-0400 Diastolic blood pressure 72 mm[Hg] Naya Butler BODY SHOP ESTIMATOR Work Phone: [facility] 10-15-2023 15:49-0400 Heart rate 87 /min Naya Butler BODY SHOP ESTIMATOR Work Phone: [facility] 10-15-2023 15:49-0400 SaO2% (BldA) [Mass fraction] 97 % Naya Butler BODY SHOP ESTIMATOR Work Phone: [facility] 10-15-2023 15:49-0400 Systolic blood pressure 134 mm[Hg] Naya Butler BODY SHOP ESTIMATOR Work Phone: [facility] 09-27-2023 13:55-0400 Body height 165.1 cm MD Alyssa Butterfield Work Phone: [facility] 09-27-2023 13:55-0400 Body mass index (BMI) [Ratio] 45.1 kg/m2 MD Alyssa Butterfield Work Phone: [facility] 09-27-2023 13:55-0400 Body weight 122.92 kg MD Alyssa Butterfield Work Phone: [facility] 09-27-2023 13:55-0400 Diastolic blood pressure 61 mm[Hg] MD Alyssa Butterfield Work Phone: [facility] 09-27-2023 13:55-0400 Heart rate 101 /min MD Alyssa Butterfield Work Phone: [facility] 09-27-2023 13:55-0400 Systolic blood pressure 94 mm[Hg] MD Alyssa Butterfield Work Phone: [facility] 09-25-2023 09:35-0400 Diastolic blood pressure 74 mm[Hg] MD Alyssa Butterfield Work Phone: [facility] 09-25-2023 09:35-0400 Heart rate 72 /min MD Alyssa Butterfield Work Phone: [facility] 09-25-2023 09:35-0400 Respiratory rate 16 /min MD Alyssa Butterfield Work Phone: [facility] 09-25-2023 09:35-0400 SaO2% (BldA) [Mass fraction] 96 % MD Alyssa Butterfield Work Phone: [facility] 09-25-2023 09:35-0400 Systolic blood pressure 117 mm[Hg] MD Alyssa Butterfield Work Phone: [facility] 09-25-2023 07:59-0400 Body height 165.1 cm MD Alyssa Butterfield Work Phone: [facility] 09-25-2023 07:59-0400 Body weight 120.2 kg MD Alyssa Butterfield Work Phone: [facility] 09-06-2023 09:51-0400 Body height 165.1 cm MD Alyssa Butterfield Work Phone: [facility] 09-06-2023 09:51-0400 Body mass index (BMI) [Ratio] 44.7 kg/m2 MD Alyssa Butterfield Work Phone: [facility] 09-06-2023 09:51-0400 Body weight 122.01 kg MD Alyssa Butterfield Work Phone: [facility] 09-06-2023 09:51-0400 Diastolic blood pressure 69 mm[Hg] MD Alyssa Butterfield Work Phone: [facility] 09-06-2023 09:51-0400 Heart rate 88 /min MD Alyssa Butterfield Work Phone: [facility] 09-06-2023 09:51-0400 Systolic blood pressure 105 mm[Hg] MD Alyssa Butterfield Work Phone: [facility] 08-16-2023 09:30-0400 Body height 165.1 cm MD Alyssa Butterfield Work Phone: [facility] 08-16-2023 09:30-0400 Body mass index (BMI) [Ratio] 44.6 kg/m2 MD Alyssa Butterfield Work Phone: [facility] 08-16-2023 09:30-0400 Body temperature 98.4 [degF] MD Alyssa Butterfield Work Phone: [facility] 08-16-2023 09:30-0400 Body weight 121.56 kg MD Alyssa Butterfield Work Phone: [facility] 08-16-2023 09:30-0400 Diastolic blood pressure 78 mm[Hg] MD Alyssa Butterfield Work Phone: [facility] 08-16-2023 09:30-0400 Heart rate 74 /min MD Alyssa Butterfield Work Phone: [facility] 08-16-2023 09:30-0400 SaO2% (BldA) [Mass fraction] 98 % MD Alyssa Butterfield Work Phone: [facility] 08-16-2023 09:30-0400 Systolic blood pressure 126 mm[Hg] MD Alyssa Butterfield Work Phone: [facility] 07-31-2023 15:22-0400 Body height 165.1 cm MD Alyssa Butterfield Work Phone: [facility] 07-31-2023 15:22-0400 Body mass index (BMI) [Ratio] 44.4 kg/m2 MD Alyssa Butterfield Work Phone: [facility] 07-31-2023 15:22-0400 Body temperature 98.5 [degF] MD Alyssa Butterfield Work Phone: [facility] 07-31-2023 15:22-0400 Body weight 121.1 kg MD Alyssa Butterfield Work Phone: [facility] 07-31-2023 15:22-0400 Diastolic blood pressure 87 mm[Hg] MD Alyssa Butterfield Work Phone: [facility] 07-31-2023 15:22-0400 Heart rate 90 /min MD Alyssa Butterfield Work Phone: [facility] 07-31-2023 15:22-0400 Systolic blood pressure 137 mm[Hg] MD Alyssa Butterfield Work Phone: [facility] 06-28-2023 13:48-0400 Body height 165.1 cm MD Alyssa Butterfield Work Phone: [facility] 06-28-2023 13:48-0400 Body mass index (BMI) [Ratio] 44.6 kg/m2 MD Alyssa Butterfield Work Phone: [facility] 06-28-2023 13:48-0400 Body weight 121.56 kg MD Alyssa Butterfield Work Phone: [facility] 06-28-2023 13:48-0400 Diastolic blood pressure 69 mm[Hg] MD Alyssa Butterfield Work Phone: [facility] 06-28-2023 13:48-0400 Heart rate 83 /min MD Alyssa Butterfield Work Phone: [facility] 06-28-2023 13:48-0400 Systolic blood pressure 104 mm[Hg] MD Alyssa Butterfield Work Phone: [facility] 05-30-2023 09:59-0400 Body height 165.1 cm MD Alyssa Butterfield Work Phone: [facility] 05-30-2023 09:59-0400 Body mass index (BMI) [Ratio] 44.1 kg/m2 MD Alyssa Butterfield Work Phone: [facility] 05-30-2023 09:59-0400 Body weight 120.31 kg MD Alyssa Butterfield Work Phone: [facility] 05-30-2023 09:59-0400 Diastolic blood pressure 80 mm[Hg] MD Alyssa Butterfield Work Phone: [facility] 05-30-2023 09:59-0400 Heart rate 92 /min MD Alyssa Butterfield Work Phone: [facility] 05-30-2023 09:59-0400 SaO2% (BldA) [Mass fraction] 98 % MD Alyssa Butterfield Work Phone: [facility] 05-30-2023 09:59-0400 Systolic blood pressure 124 mm[Hg] MD Alyssa Butterfield Work Phone: [facility] 04-30-2023 13:14-0400 Body height 165.1 cm MD Alyssa Butterfield Work Phone: [facility] 04-30-2023 13:14-0400 Body mass index (BMI) [Ratio] 43.8 kg/m2 MD Alyssa Butterfield Work Phone: [facility] 04-30-2023 13:14-0400 Body weight 119.4 kg MD Alyssa Butterfield Work Phone: [facility] 04-30-2023 13:14-0400 Diastolic blood pressure 72 mm[Hg] MD Alyssa Butterfield Work Phone: [facility] 04-30-2023 13:14-0400 Heart rate 92 /min MD Alyssa Butterfield Work Phone: [facility] 04-30-2023 13:14-0400 Systolic blood pressure 104 mm[Hg] MD Alyssa Butterfield Work Phone: [facility] 04-18-2023 10:28-0400 Body height 165.1 cm MD Alyssa Butterfield Work Phone: [facility] 04-18-2023 10:28-0400 Body mass index (BMI) [Ratio] 42.4 kg/m2 MD Alyssa Butterfield Work Phone: [facility] 04-18-2023 10:28-0400 Body temperature 95.1 [degF] MD Alyssa Butterfield Work Phone: [facility] 04-18-2023 10:28-0400 Body weight 115.72 kg MD Alyssa Butterfield Work Phone: [facility] 04-18-2023 10:28-0400 Diastolic blood pressure 69 mm[Hg] MD Alyssa Butterfield Work Phone: [facility] 04-18-2023 10:28-0400 Heart rate 83 /min MD Alyssa Butterfield Work Phone: [facility] 04-18-2023 10:28-0400 Systolic blood pressure 92 mm[Hg] MD Alyssa Butterfield Work Phone: [facility] 04-16-2023 08:55-0400 Body height 165.1 cm MD Alyssa Butterfield Work Phone: [facility] 04-16-2023 08:55-0400 Body mass index (BMI) [Ratio] 42.5 kg/m2 MD Alyssa Butterfield Work Phone: [facility] 04-16-2023 08:55-0400 Body temperature 96.1 [degF] MD Alyssa Butterfield Work Phone: [facility] 04-16-2023 08:55-0400 Body weight 115.83 kg MD Alyssa Butterfield Work Phone: [facility] 04-16-2023 08:55-0400 Diastolic blood pressure 79 mm[Hg] MD Alyssa Butterfield Work Phone: [facility] 04-16-2023 08:55-0400 Heart rate 79 /min MD Alyssa Butterfield Work Phone: [facility] 04-16-2023 08:55-0400 Systolic blood pressure 122 mm[Hg] MD Alyssa Butterfield Work Phone: [facility] 03-08-2023 08:30-0500 Body height 165.1 cm MD Alyssa Butterfield Work Phone: [facility] 03-08-2023 08:30-0500 Body weight 118.47 kg MD Alyssa Butterfield Work Phone: [facility] 03-08-2023 08:30-0500 Diastolic blood pressure 68 mm[Hg] MD Alyssa Butterfield Work Phone: [facility] 03-08-2023 08:30-0500 Systolic blood pressure 102 mm[Hg] MD Alyssa Butterfield Work Phone: [facility] 02-27-2022 09:45-0500 Body height 165.1 cm Alyssa Butterfield Other [facility] [employer] Other 02-27-2022 09:45-0500 Body mass index (BMI) [Ratio] 43.26 kg/m2 Alyssa Butterfield Other [facility] [employer] Other 02-27-2022 09:45-0500 Body weight 117.94 kg Alyssa Butterfield Other [employer] Other 02-27-2022 09:45-0500 Diastolic blood pressure 80 mm[Hg] Alyssa Butterfield Other [employer] Other 02-27-2022 09:45-0500 SaO2% (BldA) [Mass fraction] 91 % Alyssa Butterfield Other [employer] Other 02-27-2022 09:45-0500 Systolic blood pressure 120 mm[Hg] Alyssa Butterfield Other [employer] Other Encounters Encounter Date Encounter Type Care Provider Facility Start: 03-06-2024 End: 03-06-2024 Bamboo flowsheet Ricci Harpreet DO Work Phone: [facility] Start: 03-06-2024 End: 03-06-2024 Bamboo flowsheet Ricci Harpreet DO Work Phone: [facility] Start: 03-06-2024 End: 03-06-2024 ambulatory [facility] Work Phone: Start: 03-06-2024 End: 03-06-2024 Patient encounter procedure Ricci Harpreet DO Work Phone: [facility] Work Phone: Start: 03-06-2024 End: 03-06-2024 Periodic preventive med est patient 18-39 yrs Ricci Harpreet DO Work Phone: [facility] Comment on above: Well woman exam with routine gynecological exam; control counseling Start: 02-26-2024 End: 02-26-2024 ambulatory [facility] Work Phone: Start: 02-26-2024 End: 02-26-2024 Patient encounter procedure [facility] Work Phone: Start: 02-14-2024 End: 02-14-2024 ambulatory [facility] Work Phone: Start: 02-14-2024 End: 02-14-2024 Patient encounter procedure [facility] Work Phone: Start: 02-05-2024 End: 02-05-2024 Treatment Yun Naranjo PT Work Phone: [facility] Comment on above: Cervicalgia (Primary Dx); Vertigo of central origin; Balance disorder Start: 01-23-2024 End: 01-23-2024 Evaluation Yun Naranjo PT Work Phone: [facility] Comment on above: Cervicalgia (Primary Dx); Balance disorder; Dizziness; Vertigo of central origin Start: 01-22-2024 End: 01-22-2024 Bamboo flowsheet Naya Butler BODY SHOP ESTIMATOR Work Phone: [facility] Start: 01-22-2024 End: 01-22-2024 Bamboo flowsheet Naya Luke BODY SHOP ESTIMATOR Work Phone: [facility] Start: 01-22-2024 End: 01-22-2024 Clinisync Result Encounter Naya Butler BODY SHOP ESTIMATOR Work Phone: [facility] External [facility] Unsolicited Start: 01-22-2024 End: 01-22-2024 Office outpatient visit 25 minutes Naya Butler BODY SHOP ESTIMATOR Work Phone: [facility] Comment on above: Dizziness (Primary D x); Intracranial hypertension; Class 3 severe obesity due to excess calories with serious comorbidity and body mass index (BMI) of 45.0 to 49.9 in adult (CMS/[facility]ERLY [facility]); Encounter for medication monitoring Start: 01-22-2024 End: 01-22-2024 ambulatory NAYA BUTLER Not Available Start: 01-17-2024 End: 01-17-2024 Patient encounter procedure [facility] Work Phone: Start: 12-24-2023 End: 12-24-2023 ambulatory Alyssa Butterfield MD Work Phone: [facility] Work Phone: Start: 12-24-2023 End: 12-24-2023 Patient encounter procedure Alyssa Butterfield MD Work Phone: [facility] Work Phone: Start: 12-20-2023 Non-patient / Non-visit Alyssa Butterfield MD Work Phone: [facility] Work Phone: Start: 11-20-2023 End: 11-20-2023 Bamboo flowsheet Katarzynaopher Alex DO Work Phone: [employer] [facility] Start: 11-20-2023 End: 11-20-2023 Bamboo flowsheet Katarzynaopher Alex DO Work Phone: [employer] [facility] Start: 11-20-2023 End: 11-20-2023 Office outpatient visit 25 minutes Bonnie Johnson DO Work Phone: [employer] [facility] Comment on above: Intracranial hyperte nsion (Primary Dx); Dizziness; Class 3 severe obesity due to excess calories with serious comorbidity and body mass index (BMI) of 45.0 to 49.9 in adult ([facility]) Start: 11-20-2023 End: 11-20-2023 ambulatory BONNIE JOHNSON Not Available Start: 11-09-2023 End: 11-09-2023 Patient encounter procedure MD Alyssa Butterfield Work Phone: [facility] [place] Work Phone: Start: 11-09-2023 End: 11-09-2023 ambulatory MD Alyssa Butterfield Work Phone: [facility] Work Phone: Start: 10-23-2023 End: 10-23-2023 Clinisync Result Encounter Naya Butler NP Work Phone: [facility] Unsolicited Start: 10-23-2023 End: 10-23-2023 Clinisync Result Encounter Naya Butler BODY SHOP ESTIMATOR Work Phone: [facility] Unsolicited Start: 10-22-2023 End: 10-22-2023 ambulatory MD Alyssa Butterfield Work Phone: [facility] Work Phone: Start: 10-22-2023 End: 10-22-2023 Patient encounter procedure MD Alyssa Butterfield Work Phone: [facility] Work Phone: Start: 10-18-2023 End: 10-18-2023 Telephone encounter Shima Vallecillo MA [facility] Start: 10-16-2023 End: 10-16-2023 Telephone encounter Naya Butler BODY SHOP ESTIMATOR Work Phone: [facility] Start: 10-15-2023 End: 10-15-2023 ambulatory NAYA BUTLER Not Available Start: 10-15-2023 End: 10-15-2023 Office outpatient visit 25 minutes Naya Butler BODY SHOP ESTIMATOR Work Phone: [facility] Comment on above: Intracranial hyperte nsion (Primary Dx); Encounter for medication monitoring; Headache, unspecified headache type; Dizziness Start: 10-15-2023 End: 10-15-2023 Bamboo flowsheet Naya Butler BODY SHOP ESTIMATOR Work Phone: [facility] Start: 10-15-2023 End: 10-15-2023 Bamboo flowsheet Naya Butler BODY SHOP ESTIMATOR Work Phone: [facility] Start: 09-27-2023 End: 09-27-2023 ambulatory MD Alyssa Butterfield Work Phone: [facility] Work Phone: Start: 09-27-2023 End: 09-27-2023 Patient encounter procedure MD Alyssa Butterfield Work Phone: [facility] Work Phone: Start: 09-25-2023 End: 09-25-2023 Patient encounter procedure MD Alyssa Butterfield Work Phone: [facility] [place] Work Phone: Start: 09-25-2023 End: 09-25-2023 ambulatory MD Alyssa Butterfield Work Phone: [facility] Work Phone: Start: 09-06-2023 End: 09-06-2023 ambulatory MD Alyssa Butterfield Work Phone: [facility] Work Phone: Start: 09-06-2023 End: 09-06-2023 Patient encounter procedure MD Alyssa Butterfield Work Phone: [facility] Work Phone: Start: 08-29-2023 End: 08-29-2023 ambulatory BONNIE JOHNSON Not Available Start: 08-27-2023 End: 08-27-2023 ambulatory NAYA LUKE Not Available Start: 08-16-2023 End: 08-16-2023 ambulatory MD Alyssa Butterfield Work Phone: [facility] Work Phone: Start: 08-16-2023 End: 08-16-2023 Patient encounter procedure MD Alyssa Butterfield Work Phone: [facility] Work Phone: Start: 08-15-2023 End: 08-15-2023 Patient encounter procedure MD Alyssa Butterfield Work Phone: [facility] [place] Work Phone: Start: 08-15-2023 End: 08-15-2023 ambulatory MD Alyssa Butterfield Work Phone: [facility] Work Phone: Start: 08-13-2023 End: 08-13-2023 Emergency department patient visit ALYSSA BUTTERFIELD [facility] Start: 07-31-2023 End: 07-31-2023 ambulatory MD Alyssa Butterfield Work Phone: [facility] Work Phone: Start: 07-31-2023 End: 07-31-2023 Patient encounter procedure MD Alyssa Butterfield Work Phone: [facility] Work Phone: Start: 07-24-2023 End: 07-24-2023 ambulatory KATARZYNACARLA ALEX Not Available Start: 06-28-2023 End: 06-28-2023 ambulatory MD Alyssa Butterfield Work Phone: [facility] Work Phone: Start: 06-28-2023 End: 06-28-2023 Patient encounter procedure MD Alyssa Butterfield Work Phone: [facility] Work Phone: Start: 06-27-2023 End: 06-27-2023 ambulatory ALEXANDER GEORGE Not Available Start: 06-20-2023 End: 06-20-2023 ambulatory MERISSA CRAFT Not Available Start: 06-08-2023 Non-patient / Non-visit MD Susanna Butterfield Work Phone: [facility] Work Phone: Start: 05-30-2023 End: 05-30-2023 ambulatory MD Alyssa Butterfield Work Phone: [facility] Work Phone: Start: 05-30-2023 End: 05-30-2023 Patient encounter procedure MD Alyssa Butterfield Work Phone: [facility] Work Phone: Start: 05-25-2023 End: 05-25-2023 ambulatory MD Alyssa Butterfield Work Phone: [facility] Work Phone: Start: 05-25-2023 End: 05-25-2023 Discharged Recurring MD Alyssa Butterfield Work Phone: [facility] Start: 05-25-2023 Registered Recurring MD Alyssa Butterfield Work Phone: [facility] Start: 04-30-2023 End: 04-30-2023 ambulatory MD Alyssa Butterfield Work Phone: [facility] Work Phone: Start: 04-30-2023 End: 04-30-2023 Patient encounter procedure MD Alyssa Butterfield Work Phone: [facility] Work Phone: Start: 04-25-2023 Registered Recurring MD Alyssa Butterfield Work Phone: [facility] Start: 04-18-2023 End: 04-18-2023 Patient encounter procedure MD Alyssa Butterfield Work Phone: [facility] Work Phone: Start: 04-16-2023 End: 04-16-2023 Patient encounter procedure MD Alyssa Butterfield Work Phone: [facility] Work Phone: Start: 03-13-2023 End: 03-13-2023 ambulatory Alyssa Butterfield Other [employer] Other Start: 03-13-2023 Telephone encounter Alyssa Butterfield [facility] Start: 03-08-2023 End: 03-08-2023 Patient encounter procedure MD Alyssa Butterfield Work Phone: [facility] Start: 03-05-2023 End: 03-05-2023 ambulatory RICCI JAIMESO Not Available Start: 05-17-2022 End: 05-17-2022 ambulatory Alyssa Butterfield Other [employer] Other Start: 05-17-2022 Telephone encounter Alyssa Butterfield [facility] Start: 02-27-2022 End: 02-27-[address] RICCI MULLINS Facility:[facility] Start: 02-27-2022 Office outpatient vi sit 15 minutes Alyssa Butterfield [facility] Start: 02-16-2022 Gynecological examination normal Alyssa Brady Other [employer] Other Start: 01-23-2022 Adult health examination Rani a Brady Other [employer] Other Start: 01-23-2022 Gynecological examination normal Alyssa Brady Other [employer] Other Start: 09-06-2021 End: 09-06-[address] RICCI MULLINS Facility:[facility] Start: 08-30-2021 End: 09-06-[address] RICCI MULLINS Facility:[facility] Start: 08-28-2021 End: 08-30-[address] KALPANA ESCOBAR Facility:[facility] Start: 08-21-2021 End: 08-26-2021 Evaluation and management of inpatient DR RICCI MULLINS Facility:[facility] Start: 08-19-2021 End: 08-19-[address] RICCI MULLINS Facility:[facility] Start: 07-30-2021 End: 07-31-[address] RICCI MULLINS Facility:[facility] Start: 07-25-2021 End: 07-25-[address] RICCI MULLINS Facility:[facility] Start: 06-09-2021 End: 06-10-[address] RICCI MULLINS Facility:[facility] Start: 05-28-2021 End: 05-29-[address] RICCI MULLINS Facility:[facility] Start: 05-06-2021 End: 05-07-[address] RICCI MULLINS Facility:[facility] Start: 06-05-2017 End: 06-05-2017 Ambulatory HARVINDER COLLINS Facility:[facility] Procedures Date Procedure Procedure Detail Performing Clinician Start: 01-22-2024 ALL BASIC METABOLIC PANEL Naya Butler NP Work Phone: Start: 11-09-2023 MRI venography MD Rani Butterfield Work Phone: Start: 10-23-2023 [facility] CMP (CMP) (FOR R [facility] USE) Naya Butler BODY SHOP ESTIMATOR Work Phone: Start: 09-25-2023 Aerobic microbial culture Alyssa Butterfield MD Work Phone: Start: 09-25-2023 Anaerobic microbial culture Alyssa Butterfield MD Work Phone: Start: 09-25-2023 CSF (PCR) MD Alyssa Butterfield Work Phone: Start: 09-25-2023 CSF (PCR) Alyssa pires MD Work Phone: Start: 09-25-2023 Gram stain microscopy Mindi Butterfield MD Work Phone: Start: 09-25-2023 Investigation of transfusion reaction MD Alyssa Butterfield Work Phone: Start: 08-15-2023 MRI of head MD Alyssa Butterfield Work Phone: Start: 03-05-2023 Microscopic observat ion [Identifier] in Cervix by Cyto stain Ricci Mullins DO Work Phone: Start: 03-05-2023 Cytp cerv/vag auto t hin layer prep mnl screen Ricci Mullins DO Work Phone: Start: 02-27-2022 Microscopic observat ion [Identifier] in Cervix by Cyto stain Naya Luke BODY SHOP ESTIMATOR Work Phone: Start: 08-23-2021 Extraction of Produc ts of Conception, Low Cervical, Open Approach DR RICCI MULLINS Start: 08-21-2021 Introduction of Horm one into Female Reproductive, Via Natural or Artificial Opening DR RICCI MULLINS Start: 10-19-2015 Venereal disease screening Alyssa Butterfield Other screening Alyssa fuentes Other End: 06-08-2021 screening Alyssa Butterfield Other Diabetes mellitus screening Alyssa Butterfield Other H/O: section Alyssa Butterfield Other visit Alyssa Butterfield Other Plan of Treatment Date Care Activity Detail Author Start: 03-05-2028 Screening for malign ant neoplasm of cervix [facility] Start: 02-27-2027 Screening for malign ant neoplasm of cervix [facility] Start: 03-11-2025 End: 03-11-2025 Patient encounter procedure 03/11/2025 4:00 PM EST Office Visit [facility] [address] [place] [id number] Ricci Mullins DO [address] [place] [address] [facility] Start: 03-11-2024 End: 03-11-2024 Patient encounter procedure [facility] Start: 03-06-2024 Patient referral [facility] Work Phone: Start: 03-06-2024 End: 03-06-2024 Patient encounter procedure [facility] Comment on above: Arrived Start: 02-05-2024 End: 02-05-2024 ambulatory 02/05/2024 8:30 AM EST Treatment [facility] [address] [place] [phone] Yun Naranjo, PT [address] [place] [address] [facility] Start: 01-23-2024 End: 01-23-2024 ambulatory 01/23/2024 7:30 AM EST Evaluation [facility] [address] [place] [phone] Yun Naranjo, PT [address] [place] [address] [facility] Start: 01-22-2024 End: 01-21-2025 Basic metabolic 1998 panel - Serum or Plasma Basic metabolic panel Lab Routine Encounter for medication monitoring Expected: 01/22/2024 (Approximate), Expires: 01/21/2025 [facility] Work Phone: Comment on above: Expected: 01/22/2024 (Approximate), Expires: 01/21/2025 Start: 01-22-2024 End: 01-22-2024 Patient encounter procedure 01/22/2024 1:00 PM EST Office Visit [facility] [address] [place] [phone] Naya Butler, BODY SHOP ESTIMATOR [address] [place] [phone] Arrived [facility] Comment on above: Arrived Start: 01-01-2024 Patient referral [facility] Work Phone: Start: 11-20-2023 End: 11-20-2023 Patient encounter procedure 11/20/2023 8:15 AM EDT Office Visit [facility] [address] [facility] [place] [phone] Bonnie Johnson, [address] [place], [place] [id number] Arrived [facility] [place] [facility] Comment on above: Arrived Start: 11-19-2023 End: 11-19-2023 Patient encounter procedure 11/19/2023 12:15 PM EDT Office Visit [facility] [place] [address] [facility] [address] [place] [phone] Bonnie Johnson, DO [address] [place] [address] [facility] [place] [address] [facility] Start: 10-16-2023 End: 10-14-2024 MRA Head vessels WO and W contrast IV MR venous head w and wo IV contrast Imaging Routine Intracranial hypertension Expected: 10/16/2023 (Approximate), Expires: 10/14/2024 [facility] Comment on above: Expected: 10/16/2023 (Approximate), Expires: 10/14/2024 Start: 10-15-2023 End: 10-14-2024 Comprehensive metabolic 2000 panel - Serum or Plasma Comprehensive metabolic panel Lab Routine Encounter for medication monitoring Expected: 10/15/2023 (Approximate), Expires: 10/14/2024 [facility] Work Phone: Comment on above: Expected: 10/15/2023 (Approximate), Expires: 10/14/2024 Start: 10-07-2023 Influenza vaccination Influenza Vacc ine (#1) [facility] Start: 09-25-2023 CSF (PCR) CSF (PCR) [facility] Start: 09-25-2023 Microscopic observat ion [Identifier] in Unspecified specimen by Gram stain [facility] Start: 09-25-2023 End: 09-25-2023 [facility] Start: 09-25-[address] [facility] Start: 06-28-2023 Patient referral [facility] Work Phone: Start: 04-16-2023 Patient referral [facility] Work Phone: Bacteria identified in Unspecified specimen by Aerobe culture [facility] Bacteria identified in Unspecified specimen by Anaerobe culture [facility] Cell count, cerebrospinal fluid [facility] Cerebrospinal fluid examination [facility] Cytology Cervical or vaginal smear or scraping study Pap Smear Pathology and Cytology Routine Well woman exam with routine gynecological exam Ordered: 03/06/2024 [facility] Work Phone: Comment on above: Ordered: 03/06/2024 Evaluation of cerebrospinal fluid [facility] Fluid sample volume measurement [facility] Human papilloma viru s DNA [Presence] in Unspecified specimen by Probe with amplification HPV DNA probe, amplified Microbiology Routine Well woman exam with routine gynecological exam Ordered: 03/06/2024 [facility] Comment on above: Ordered: 03/06/2024 Meningitis+Encephali tis pathogens DNA and RNA panel - Cerebral spinal fluid by NIMA with non-probe detection [facility] Patient Education Pending Sale To [facility] Puncture Discharge Instructions [facility] Work Phone: Patient referral [facility] Work Phone: Immunizations Immunization Date Immunization Notes Care Provider Braxton garcia 11-18-2022 influenza virus vaccine, unspecified formulation Naya Butler NP Work Phone: [facility] 12-10-2021 influenza virus vaccine, split virus (incl. purified surface antigen) Alyssa Butterfield Other [facility] Other 12-10-2021 influenza virus vaccine, unspecified formulation MD Alyssa Butterfield Work Phone: [facility] 12-10-2021 Influenza, injectabl e, Madin Antonella Canine Kidney, preservative free, quadrivalent Naya Butler BODY SHOP ESTIMATOR Work Phone: [facility] 07-03-2021 tetanus toxoid, reduced diphtheria toxoid, and acellular pertussis vaccine, adsorbed Naya Butler BODY SHOP ESTIMATOR Work Phone: [facility] 11-30-2020 COVID-19 mRNA-1273 (Moderna) MD Alyssa Butterfield Work Phone: [facility] 03-18-2020 COVID-19 mRNA-1273 (Moderna) MD Alyssa Butterfield Work Phone: [facility] 02-19-2020 COVID-19 mRNA-1273 (Moderna) MD Alyssa Butterfield Work Phone: [facility] 10-29-2018 influenza, injectabl e, quadrivalent, preservative free Naya Butler BODY SHOP ESTIMATOR Work Phone: [facility] 12-29-2017 tetanus toxoid, reduced diphtheria toxoid, and acellular pertussis vaccine, adsorbed Naya Butler BODY SHOP ESTIMATOR Work Phone: [facility] 11-09-2017 influenza, injectabl e, quadrivalent, preservative free Naya Butler B[employer] SHOP ESTIMATOR Work Phone: [facility] 10-24-2016 influenza, injectabl e, quadrivalent, preservative free Naya Butler BODY SHOP ESTIMATOR Work Phone: [facility] 11-03-2014 influenza, seasonal, injectable, preservative free Naya Butler BODY SHOP ESTIMATOR Work Phone: [facility] 10-27-2013 tetanus and diphther ia toxoids, adsorbed, preservative free, for adult use (5 Lf of tetanus toxoid and 2 Lf of diphtheria toxoid) Alyssa Butterfield Other [facility] Payers Date Payer Category Payer Self-pay [id number] 2022 Private Health Insurance [id number] 1988 Unknown [id number] 2.16.840.1.818518.3.579.2. 593 1988 Unknown [id number] 2.16.840.1.079826.3.579.2. 593 1988 Unknown [id number] 2.16.840.1.922866.3.579.2. 593 1988 Unknown [id number] 2.16.840.1.864753.3.579.2. 593 1988 Unknown [id number] 2.16.840.1.671625.3.579.2. 593 1988 Unknown [id number] 2.16.840.1.088320.3.579.2. 593 1988 Unknown [id number] 2.16.840.1.181420.3.579.2. 593 1988 Unknown [id number] 2.16.840.1.367963.3.579.2. 593 1988 Unknown [id number] 2.16.840.1.526738.3.579.2. 593 1988 Unknown [id number] 2.16.840.1.500858.3.579.2. 593 1988 Unknown [id number] 2.16.840.1.578526.3.579.2. 593 1988 Unknown [id number] 2.16.840.1.826506.3.579.2. 1286 1988 Unknown [id number] 2.16.840.1.914240.3.579.2. 9 1988 Unknown [id number] 2.16.840.1.394218.3.579.2. 9 1988 Unknown [id number] 2.16.840.1.501711.3.579.2. 1258 1988 Unknown [id number] 2.16.840.1.840392.3.579.2. 1258 1988 Unknown [id number] 2.16.840.1.010760.3.579.2. 1258 1988 Unknown [id number] 2.16.840.1.837131.3.579.2. 1258 1988 Unknown [id number] 2.16840.1.489141.3.579.2. 1258 1988 Unknown [id number] 2.16840.1.457661.3.579.2. 1258 1988 Unknown [id number] 2.16.840.1.440182.3.579.2. 1258 1988 Unknown [id number] 2.16.840.1.498355.3.579.2. 1258 1988 Unknown [id number] 2.16.840.1.662686.3.579.2. 9 1959 Private Health Insurance [id number] 1959 Unknown [id number] 1959 Unknown [id number] Private Health Insurance [facility] [employer] [id number] Unknown [id number] Unknown [id number] 2.16.840.1.438803.3.579.2. 531 Unknown [id number] 2.16840.1.054075.3.579.2. 531 Unknown [id number] 2.16840.1.460537.3.579.2. 531 Unknown [id number] 2.16.840.1.941588.3.579.2. 531 Social History Date Type Detail Facility Unknown if ever smoked [facility] Other Start: 08-27-2023 End: 10-15-2023 Sex Assigned At [facility] [employer] Other Start: 03-08-2023 End: 09-25-2023 Tobacco smoking status NHIS Never smoked tobacco (finding) [facility] Start: 1990 Sex Assigned At Female F [facility] Start: 07-13-2022 Tobacco use and exposure Smokeless tobacco non-user [facility] Start: 10-15-2023 End: 03-06-2024 Alcoholic beverage intake Current drinker of alcohol (finding) [facility] Start: 10-15-2023 End: 03-06-2024 Alcoholic beverage intake [facility] Start: 06-28-2022 Education 21 [facility] Start: 1988 Sex assigned at Not on file [facility] Start: 12-24-2023 End: 03-06-2024 Sex Female (finding) [facility] Clinical Notes 09-13-2020 to 03-06-2024 Padmaja Astorga LPN - 03/06/2024 8:30 AM Inder Naranjo, PT - 02/05/2024 8:30 AM Inder Nraanjo, PT - 01/23/2024 7:30 AM ESTPatient Instructions Note Date & Type Note Facility 03-06-2024 History of Presen t illness Narrative Reason for Appointment: Patient ID: Rebecca White is a 34 y.o. female who presents for Well Women Visit Patient presents today for Annual Exam. MEDICATIONS Current Outpatient Medications Medication Instructions albuterol HFA 90 mcg/act inhaler 2 puffs, Every 6 hours PRN albuterol 2.5 mg, Every 6 hours PRN busPIRone (BUSPAR) 5 mg, 2 times daily PRN cholecalciferol (VITAMIN D-3) 2,000 Units, Daily cyanocobalamin (VITAMIN B-12) 1,000 mcg, Daily drospirenone-ethinyl estradiol (Letty, Ocella) 3-0.03 MG tablet 1 tablet, Oral, Daily fexofenadine (RADHA ALLERGY) 180 mg, Daily furosemide (LASIX) 20 mg, Oral, Daily meclizine (ANTIVERT) 25 mg, 3 times daily PRN metFORMIN XR (GLUCOPHAGE-XR) 500 mg, 2 times daily after meals venlafaxine XR (EFFEXOR XR) 75 mg, Daily ALLERGIES No Known Allergies PROBLEMS Active Ambulatory Problems Diagnosis Date Noted Depression (CMS/HCC) 06/08/2022 Left carpal tunnel syndrome 06/08/2022 Right carpal tunnel syndrome 06/08/2022 Mass of left adrenal gland (CMS/HCC) 06/08/2022 Obesity 06/08/2022 Polycystic ovaries 06/08/2022 Secondary amenorrhea 06/08/2022 Eustachian tube dysfunction 09/20/2017 Chronic tonsillitis 09/20/2017 Dizziness and giddiness 06/20/2023 Carpal tunnel syndrome 07/30/2023 Carpal tunnel syndrome, bilateral upper limbs 07/30/2023 Cervicalgia 01/22/2024 Balance disorder 01/22/2024 Vertigo of central origin 01/23/2024 Resolved Ambulatory Problems Diagnosis Date Noted No Resolved Ambulatory Problems Past Medical History: Diagnosis Date Adrenal mass, left (CMS/HCC) Childhood asthma (CMS/HCC) Family history of breast cancer Idiopathic intracranial hypertension Infertility, female Obesity (BMI 30-39.9) PCOS (polycystic ovarian syndrome) Seasonal allergies Varicella zoster Vitamin D deficiency HISTORY PAST MEDICAL HISTORY SOCIAL HISTORY Past Medical History: Diagnosis Date Adrenal mass, left (CMS/HCC) Childhood asthma (CMS/HCC) Depression (CMS/HCC) Family history of breast cancer Idiopathic intracranial hypertension Infertility, female Obesity (BMI 30-39.9) PCOS (polycystic ovarian syndrome) Seasonal allergies Varicella zoster Vitamin D deficiency Social History Tobacco Use Smoking status: Never Smokeless tobacco: Never Substance Use Topics Alcohol use: Yes Alcohol/week: 1.0 standard drink of alcohol Types: 1 Standard drinks or equivalent per week Drug use: Never FAMILY HISTORY Family History Problem Relation Name Age of Onset Hyperlipidemia Mother Other (pre-cancerous) Mother had laser, later had hysterectomy Other (varicose veins) Mother No Known Problems Father No Known Problems Sister No Known Problems Brother Breast cancer Maternal Grandmother Darcy [place] Uterine cancer Maternal Grandmother [place] Cancer Maternal Grandmother [place]cy [place] Uterine cancer Paternal Grandmother Kim [place] Cancer Paternal Grandmother Kim [place] Lung cancer Paternal Grandfather Other (seasonal allergies) Daughter SURGICAL HISTORY Past Surgical History: Procedure Laterality Date ADRENAL GLAND SURGERY 2002 mass removed, benign CARPAL TUNNEL RELEASE Right 07/05/2022 Dr Foley CARPAL TUNNEL RELEASE Left 08/02/2022 Dr Foley SECTION, CLASSIC 2021 IR LUMBAR PUNCTURE VAGINAL DELIVERY WISDOM TOOTH EXTRACTION REVIEW OF SYSTEMS Review of Systems: Review of Systems All other systems reviewed and are negative. OBJECTIVE Objective: Physical Exam Constitutional: Appearance: Normal appearance. She is well-developed. Genitourinary: Vulva normal. Breasts: Breasts are soft. Right: Normal. Left: Normal. Cardiovascular: Rate and Rhythm: Normal rate and regular rhythm. Pulmonary: Effort: Pulmonary effort is normal. Breath sounds: Normal breath sounds. Abdominal: General: Bowel sounds are normal. There is no distension. Palpations: Abdomen is soft. Tenderness: There is no abdominal tenderness. There is no guarding or rebound. Musculoskeletal: General: No swelling. Normal range of motion. Right lower leg: No edema. Left lower leg: No edema. Neurological: Mental Status: She is alert and oriented to person, place, and time. Skin: General: Skin is warm and dry. Psychiatric: Mood and Affect: Mood normal. Behavior: Behavior normal. Vitals and nursing note reviewed. Exam conducted with a online journalist present. Vitals: Estimated body mass index is 45.62 kg/m as calculated from the following: Height as of 10/15/23: 5' 5 . Weight as of this encounter: 274 lb 1.9 oz. BP: 120/78 Patient's last menstrual period was 03/01/2024. ASSESSMENT & PLAN ICD-10-CM 1. Well woman exam with routine gynecological exam Z01.419 Pap Smear HPV DNA probe, amplified Annual Exam: Patient presents today for an annual exam. Patient states she is doing well and has no complaints. Pap was obtained without difficulty. Patient voiced that she would like a change in OCP for more of a continuous control. Slynd sent to [facility] and patient given handout in regards to pharmacy information. Orders Placed This Encounter Procedures HPV DNA probe, amplified Follow Up: Patient is to return in one year for annual unless needed otherwise. Documented by Padmaja Astorga LPN on behalf of: Ricci Mullins DO documented in this encounter [facility] 02-05-2024 History of Presen t illness Narrative Images from the original note were not included. Rebecca White [id number] 02/05/24 Subjective: Phone consult 01/21 33 yof sent to PT by DR Butler for dizziness Onset of dizziness in April Unsure of cause Sometimes eyes/head spin and wobbly No specific time is worst Moving head brings it on Hard to focus eyes especially when moving head Hearing seems fine ENT Dr George said its fine, hearing test ok Occasional tinnitus either ear Denies double vision Intracranial hypertenssion, drained spinal fluid and helped a lot, controlled with meds, and trying to lose weight, difficult PCOS Occasional sinus headaches Neck periodically painful, Chiro monthly Denies paresthesia hands Denies paresthesia feet Reviewed Brain MRI negative Two MRI brain scans Electrolyte testing negative 2nd Doc in Mar, feeling a little better Objective/Examination: Vision/Ocular: Head alignment: Negative head tilt Ocular alignment-Strabismus observation: Negative misalignment noticed (Exo, Eso, Hyper & Hypo tropia/phoria) Pupil Size/shape: Negative asymmetry noticed Double Vision: Denies Binocular & Monocular double vision Visual Field: Pass, Performed Monocularly and able to see at least shoulder width & chin to eyebrow length Static Visual Acuity (Snellen 20' distance): 20/20 Cover Tropia/Uncover Phoria test: Negative Cross Cover test for fatibagility (20 reps): Negative Saccades: Pass, Performed with stationary head at arms length with Blue & Jenkins Markers Smooth Pursuit: Pass, Performed Monocularly Negative undershoot/overshoot, jumping, head movement Fixation: Pass, Performed Monocularly & held 10 seconds: Negative Refixation/Eye blinking/Head movement Gaze evoked nystagmus: Negative Convergence breaking point (double or really blurry) inches: Negative within 0-2 inches Postional Testing: Negative BPPV testing: Negative Postural Hypotension head fixed lay down sit up testing: Negative BP was not tested *VOMS: dizzy with vor and pursuit tracking Head Impulse Test: Negative) Upper Motor Neuron: Negative finger to nose, hoffmans, hyperreflexia, rapid alt hand movt *Cervical Motion: Impaired motion and discomfort/pain *Cervical Massage vibration test with goggles: reproduced dizziness Vertebral Artery Screening test (VAST): negative Smooth Pursuit Neck Tosrion Test (SPNT): Negative *Cervical Proprioception Testing: Poor head neck awareness *Cervical Muscle Strength: Deep Neck Flexor Weakness, Fail standardized endurance test Sensory Organization Performance Test: pass *Fukuda test: spin 20 deg L Ocular assessment with goggles: Negative spontaneous nystagmus, gaze evoked nystagmus High Frequency Head shake (2 Hz) with video goggles: Negative Motion Sensitivity Test: will test next session *Computerized Dynamic Visual Acuity test: pass but dizzy with head movement Therapeutic Intervention: reEvaluation: sop cdvat Manips th spine Review hep Revise hep see attached Chin tucks yeny, vor standing Heat aerobics water Issue revised hep 38 Assessment: Suspected Therapy Diagnosis: Central dizziness with disrupted VOR reflex and Cervical Mediated Dizziness Problems: Dizziness with massage vibration neck, Neck pain and poor motion, Motion Sensitivity dizziness, impaired vor, dizzy cdvat testing Goals: Eliminate dizziness massage vibration neck, restore neck motion, restore motion sensitivity, restore balance and pass cdvat tests Plan: Cervical manual therapy, vestibular rehabilitation, vision therapy, aerobics/heat Frequency/Duration: Once every other week Potential: Good I hereby deem this POC medically necessary. Please sign below. Yun Naranjo, DScPT, OCS, COMT, AIB-VAM Director Vestibular Rehabilitation documented in this encounter [facility] 01-23-2024 History of Presen t illness Narrative Images from the original note were not included. Rebecca White [id number] 01/22/24 Subjective: Phone consult 01/21 33 yof sent to PT by DR Butler for dizziness Onset of dizziness in April Unsure of cause Sometimes eyes/head spin and wobbly No specific time is worst Moving head brings it on Hard to focus eyes especially when moving head Hearing seems fine ENT Dr George said its fine, hearing test ok Occasional tinnitus either ear Denies double vision Intracranial hypertenssion, drained spinal fluid and helped a lot, controlled with meds, and trying to lose weight, difficult PCOS Occasional sinus headaches Neck periodically painful, Chiro monthly Denies paresthesia hands Denies paresthesia feet Reviewed Brain MRI negative Two MRI brain scans Electrolyte testing negative Objective/Examination: Vision/Ocular: Head alignment: Negative head tilt Ocular alignment-Strabismus observation: Negative misalignment noticed (Exo, Eso, Hyper & Hypo tropia/phoria) Pupil Size/shape: Negative asymmetry noticed Double Vision: Denies Binocular & Monocular double vision Visual Field: Pass, Performed Monocularly and able to see at least shoulder width & chin to eyebrow length Static Visual Acuity (Snellen 20' distance): 20/20 Cover Tropia/Uncover Phoria test: Negative Cross Cover test for fatibagility (20 reps): Negative Saccades: Pass, Performed with stationary head at arms length with Blue & Jenkins Markers Smooth Pursuit: Pass, Performed Monocularly Negative undershoot/overshoot, jumping, head movement Fixation: Pass, Performed Monocularly & held 10 seconds: Negative Refixation/Eye blinking/Head movement Gaze evoked nystagmus: Negative Convergence breaking point (double or really blurry) inches: Negative within 0-2 inches Postional Testing: Negative BPPV testing: Negative Postural Hypotension head fixed lay down sit up testing: Negative BP was not tested *VOMS: dizzy with vor and pursuit tracking Head Impulse Test: Negative) Upper Motor Neuron: Negative finger to nose, hoffmans, hyperreflexia, rapid alt hand movt *Cervical Motion: Impaired motion and discomfort/pain *Cervical Massage vibration test with goggles: reproduced dizziness Vertebral Artery Screening test (VAST): negative Smooth Pursuit Neck Tosrion Test (SPNT): Negative *Cervical Proprioception Testing: Poor head neck awareness *Cervical Muscle Strength: Deep Neck Flexor Weakness, Fail standardized endurance test Sensory Organization Performance Test: pass *Fukuda test: spin 20 deg L Ocular assessment with goggles: Negative spontaneous nystagmus, gaze evoked nystagmus High Frequency Head shake (2 Hz) with video goggles: Negative Motion Sensitivity Test: will test next session *Computerized Dynamic Visual Acuity test: pass but dizzy with head movement Therapeutic Intervention: Evaluation Gentle rom neck/arms Postural balance Heat neck and aerobics Written HEP See flow sheet Assessment: Suspected Therapy Diagnosis: Central dizziness with disrupted VOR reflex and Cervical Mediated Dizziness Problems: Dizziness with massage vibration neck, Neck pain and poor motion, Motion Sensitivity dizziness, impaired vor, dizzy cdvat testing Goals: Eliminate dizziness massage vibration neck, restore neck motion, restore motion sensitivity, restore balance and pass cdvat tests Plan: Cervical manual therapy, vestibular rehabilitation, vision therapy, aerobics/heat Frequency/Duration: Once every other week Potential: Good I hereby deem this POC medically necessary. Please sign below. Yun Naranjo, DScPT, OCS, COMT, AIB-VAM Director Vestibular Rehabilitation documented in this encounter [facility] 01-22-2024 Instructions Naya Butler NP - 01/22/2024 1:00 PM EST - Referral to vestibular therapy ([facility]) - Check labs documented in this encounter [facility] 12-24-2023 Evaluation note Diagnosis Onset Date Resolution Intracranial hypertension acute December 23, 2 024 3:19pm PCOS (polycystic ovarian syndrome) acute December 24, 2023 3:19pm Hand, foot and mouth disease inactive December 23, 2 024 3:19pm Anxiety acute January 17, 2024 3:29pm Intracranial hypertension acute January 16, 2 024 3:29pm Sinusitis, acute maxillary acute January 16 2 024 3:29[facility] Work Phone: 1(361) 939-851311-18-2024 Evaluation note* Diagnosis Onset Date Resolution Status Admit Date Intracranial hypertension acute December 24, 2023 3:19pm PCOS (polycystic ovarian syndrome) acute December 23, 2 024 3:19pm Hand, foot and mouth disease inactiv e December 24, 2023 3:19pm Anxiety acute January 17, 2024 3:29pm Intracranial hypertension acute January 17, 2024 3:29pm Sinusitis, acute maxillary acute January 17, 2024 3:29pm Intracranial hypertension acute February 14, 2024 11:20am Sinusitis, acute maxillary acute February 14, 2024 11:20am [facility] Work Phone: 1(436) 297-113111-18-2024 Evaluation note* Diagnosis Onset Date Resolution Status Admit Date Intracranial hypertension acute December 24, 2023 3:19pm PCOS (polycystic ovarian syndrome) acute December 23, 2 024 3:19pm Hand, foot and mouth disease inactiv e December 24, 2023 3:19pm Anxiety acute January 17, 2024 3:29pm Intracranial hypertension acute January 17, 2024 3:29pm Sinusitis, acute maxillary acute January 17, 2024 3:29pm Intracranial hypertension acute February 14, 2024 11:20am Sinusitis, acute maxillary acute February 14, 2024 11:20am Dizziness of unknown etiology acute February 26, 2024 9:58am Intracranial hypertension acute February 26, 2024 9:58am Panic attacks acute February 9:23am [facility] Work Phone: 1(383) 468-802410-15-2024 History of Present illness Narrative* Bonnie Johnson, - 11/20/2023 8:15 AM EDT Images from the original note were not included. Chief complaint: Headaches Falguni White is a 33 y.o. female. HPI The patient presents today for follow up for intercranial hypertension. At the last office visit acetazolamide was discontinued and furosemide was started. She also had labs completed for review. Patient states she is not having any negative side effects from the furosemide. She feels much better on this medication. She states her headaches have been much better. These are located typically around her eyes and on the top of her head. She reports about 6 headaches since last visit one month ago.She reports these are not lasting as long. She denies any nausea or vomiting. She admits to light sensitivity. Review of Systems Constitutional: Positive for fatigue. Negative for appetite change, chills, fever and unexpected weight change. HENT: Negative for hearing loss, tinnitus and trouble swallowing. Eyes: Negative for photophobia. Negative for visual change, double vision or loss of vision Respiratory: Negative for cough, shortness of breath and wheezing. Cardiovascular: Negative for chest pain and palpitations. Gastrointestinal: Positive for nausea. Negative for abdominal pain, blood in stool and vomiting. Musculoskeletal: Negative for arthralgias, gait problem and myalgias. Neurological: Positive for dizziness and headaches. Negative for tremors, seizures, syncope, facialasymmetry, speech difficulty, weakness, light- headedness and numbness. Positive for paresthesias (see HPI) Psychiatric/Behavioral: Negative for confusion, hallucinations and suicidal ideas. The patient is not nervous/anxious. Medication List acetazolamide 250 MG tablet; Commonly known as: Diamox albuterol (2.5 MG/3ML) 0.083% nebulizer solution albuterol HFA 90 mcg/act inhaler Radha Allergy 180 MG tablet; Generic drug: fexofenadine buspirone 5 MG tablet; Commonly known as: Buspar cholecalciferol 50 MCG (2000 UT) capsule; Commonly known as: Vitamin D-3 cyanocobalamin 1000 MCG tablet; Commonly known as: Vitamin B-12 drospirenone-ethinyl estradiol (Letty, Ocella) 3-0.03 MG tablet metFORMIN XR 500 MG 24 hr tablet; Commonly known as: Glucophage-XR ondansetron ODT 4 MG disintegrating tablet; Commonly known as: Zofran-ODT venlafaxine XR 75 MG 24 hr capsule; Commonly known as: Effexor XR Past Medical History: Diagnosis Date Adrenal mass, left (CMS/HCC) Childhood asthma (CMS/HCC) Depression (CMS/HCC) Family history of breast cancer Infertility, female Obesity (BMI 30-39.9) PCOS (polycystic ovarian syndrome) Seasonal allergies Varicella zoster Vitamin D deficiency Past Surgical History: Procedure Laterality Date ADRENAL GLAND SURGERY 2003 mass removed, benign CARPAL TUNNEL RELEASE Right 07/05/2022 Dr Foley CARPAL TUNNEL RELEASE Left 08/02/2022 Dr Foley SECTION, CLASSIC 2021 VAGINAL DELIVERY WISDOM TOOTH EXTRACTION Family History Problem Relation Name Age of Onset Hyperlipidemia Mother Other (pre-cancerous) Mother had laser, later had hysterectomy Other (varicose veins) Mother No Known Problems Father No Known Problems Sister No Known Problems Brother Breast cancer Maternal Grandmother Darcy [place] Uterine cancer Maternal Grandmother [place]cy [place] Cancer Maternal Grandmother Darcy [place] Uterine cancer Paternal Grandmother Kim Maya Cancer Paternal Grandmother Kim Maya Lung cancer Paternal Grandfather Other (seasonal allergies) Daughter Social History Tobacco Use Smoking status: Never Smokeless tobacco: Never Substance Use Topics Alcohol use: Yes Alcohol/week: 1.0 standard drink of alcohol Types: 1 Standard drinks or equivalent per week Allergies: Patient has no known allergies. Vitals: 11/20/23 0815 BP: 131/80 Pulse: 91 SpO2: 95% Body mass index is 45.73 kg/m . weight: 274 lb 12.8 oz Neurologic exam: Mental status: Awake and alert with unlabored respirations. Oriented to person, place and time. Recent and remote memory are intact. Speech is clear and fluent without aphasia. Attention and concentration are normal. Fund of knowledge is appropriate for level of education. Cranial nerves: CN II: Visual acuity is normal. Visual hall full to confrontation. CN III, IV, : Pupils are equal, round, and reactive to light. Extraocular movements intact. No ptosis present. CN V: Facial sensation is normal. CN VII: Full and symmetric facial movement. CN VIII: Hearing is normal to finger rub bilaterally. CN IX and X: Palate elevates symmetrically. CN XI: Shoulder shrug is normal bilaterally. CN XII: Tongue is midline without atrophy or fasciculation. Motor: RUE strength deltoid , biceps , triceps , wrist extensors , wrist flexor , and tapping machine operator strength 5/5. LUE strength deltoid , biceps , triceps , wrist extensors , wrist flexor , and tapping machine operator strength 5/5. RLE strength iliopsoas, quadriceps, tibialis anterior, plantar flexion, and dorsiflexion strength 5/5. LLE strength iliopsoas, quadriceps, tibialis anterior, plantar flexion, and dorsiflexion strength 5/5. Tone and bulk are normal. Sensory: Sensation is intact to light touch throughout all four extremities. Sensation is intact to temperature in all extremities. Reflexes: RUE biceps reflex 2+ , brachioradialis reflex 2+. LUE biceps reflex 2+ , brachioradialis reflex 2+. RLE Knee reflex 1+. LLE Knee reflex 1+. Coordination: Svxhri-rs-pijs testing normal. Rapid alternating movements are normal. Gait: Normal. Review and summary of old records: MR venogram on 11/09/2023 at [facility]: No evidence of venous thrombosis. No acute intracranial pathology. Redemonstration of findings consistent with IH as seen on previous MRI. Laboratory evaluation on 10/23/2023: CMP is unremarkable. Specifically potassium is 3.8. Lumbar puncture (LP) at [facility] on 09/25/23: Opening pressure of 32 cm CSF. The patient denies any adverse effects to the LP. CSF on 09/25/23: CSF glucose 60, protein 23. Anaerobic culture no anaerobes isolated after 3 days. Aerobic culture no growth 2 days. Gram stain negative. PCR panel negative. I reviewed the patient's appointment note from [facility] on 09/03/23. Levi, ROYCE identified very mild sixth cranial nerve palsy with no visual field loss or disc edema. VNG at [facility] on 08/29/23: There is evidence of significant peripheral vestibular dysfunction. Positive Eagle-Hallpike maneuver. This is suggestive of benign paroxysmal positional vertigo. There is also evidence of significant central vestibular dysfunction. MRI of the brain w and w/o contrast at [facility] on 08/15/23: There is flattening of the posterior lateral transverse sinuses bilaterally. There is prominence of CSF along the optic nerve sheath complex with tortuosity of optic nerves. There is flattening of the pituitary within the sella. This is atypical for the patient's age. Findings are suggestive of intracranial hypertension. No acute intracranial pathology or abnormal postcontrast enhancement. Assessment/Plan Diagnoses and all orders for this visit: Intracranial hypertension Obesity MRI of the brain on 08/15/23 revealed findings suggestive of intracranial hypertension. Diagnostic lumbar puncture confirmed this diagnosis with opening pressure of 32 cm CSF on 09/25/23. I believe this to be idiopathic. The patient reports approximately 2 to 3 mild headaches per week recently which are likely secondary to IIH. Her headaches significantly improvement following the LP. She denies double vision, vision loss, visual obscurations, or pulsatile tinnitus. She is an established patient at [facility] and plans to follow with them regularly for exams. I attempted to place the patient on acetazolamide for management, however, the medication has been poorly tolerated due to side effects (nausea, fatigue, paresthesias, and increased dizziness). She would like to trial an alternative medication. CMP and specifically potassium levels are unremarkable in October 08, 2023. PLAN: - Continue furosemide 20 mg by mouth once a day. I counseled the patient on potential side effects including but not limited to fluid and electrolyte loss, kidney injury, tinnitus, hearing loss, and allergic reaction. She verbalizes understanding and wishes to proceed. We discussed ensuring adequate hydration and water intake while taking this medication.We can recheck labs in approximately 4 months at follow up - I discussed the importance of serial ophthalmology examinations with the patient to help prevent visual impairment/loss. She verbalizes understanding - I have counseled the patient on lifestyle interventions to help with weight loss. The patient is quite obese and I do believe it would be important for her to consider even assistive weight loss measures such as new GLP-1 agonist medications available to assist in weight loss in order to [place] [facility]. Dizziness The patient reports episodic, provoked dizziness. Given the clinical description, this seems most consistent with BPPV. Orthostatic hypotension secondary to dehydration and medication side effects may also be contributory. VNG on 08/29/23 identified evidence of significant peripheral vestibular dysfu nction (consistent with BPPV) and central vestibular dysfunction. Although VNG was suggestive of a central etiology, MRI of the brain on 08/15/23 did not reveal an apparent cause for her symptoms. The patient has also been evaluated by Dr. George (ENT) and was recommended to have a vestibular evaluation in [place], [place]. PLAN: - I reviewed VNG results with the patient - I provided the patient with instructions for home Marco maneuvers - I counseled the patient on the importance of ensuring adequate oral water intake. I advised her that she should drink at least 64 ounces of water per day if she has no history of heart failure or renal issues - Change positions slowly Diagnosis and treatment options discussed in detail. All questions answered. The patient verbalizesunderstanding and is agreeable to the plan. Discussion in layman's terms. Follow up in the office within 4 months; sooner if needed for new or worsening symptoms. documented in this [facility]09-12-2024 Telephone encounter Note* Telephone Encounter - Naya Butler NP - 10/18/2023 10:42 AM EDT Acknowledged. Thank you! [id number] Miscellaneous Notes* Telephone Encounter - Naya Butler NP - 10/18/2023 10:42 AM EDT Acknowledged. Thank you! * Telephone Encounter - Shima Vallecillo MA - 10/18/2023 10:21 AM EDT Called PT to ask about the [place] request for Medical information from [facility], PT told me to disregard paperowrk as she is getting it filled out by her PCP. documented in this [facility]09-12-2024 Telephone encounter Note* Telephone Encounter - Shima Vallecillo MA - 10/18/2023 10:21 AM EDT Called PT to ask about the [place] request for Medical information from [facility], PT told me to disregard paperowrk as she is getting it filled out by her PCP. [id number] Telephone encounter Note* Telephone Encounter - Naya Butler NP - 10/16/2023 6:05 PM EDT I will review this. Thank you! [facility] [id number] Miscellaneous Notes* Telephone Encounter - Naya Butler NP - 10/16/2023 6:05 PM EDT I will review this. Thank you! * Telephone Encounter - Naya Butler NP - 10/16/2023 9:55 AM EDT The patient states she had an eye exam at [facility] recently for IIH. Can you please request record of this for me to review? [facility] [id number] Telephone encounter Note* Telephone Encounter - Naya Butler NP - 10/16/2023 9:55 AM EDT The patient states she had an eye exam at [facility] recently for IIH. Can you please request record of this for me to review? [facility] [id number] History of Present illness Narrative* Naya Butler NP - 10/15/2023 3:40 PM EDT Images from the original note were not included. Naya Butler NP Chief Complaint Patient presents with Headache Subjective Rebecca White is a 33 y.o. female. HPI The patient presents today for follow up. She had a VNG completed for review. Acetazolamide was prescribed via a telephone encounter on 09/30/23, and labs were ordered. The patient did not have the labs completed because she states [facility] did not receive an order for them. She is taking acetazolamide 250 mg by mouth twice a day. Since starting acetazolamide, the patient reports multiple side effects including fatigue, nausea, a uhxh-ylg-aduarly sensation in the feet when attempting to sleep, and increased dizziness. She alsostates, the effects of dehydration are coming on faster, since she started acetazolamide. She hasdaily nausea which fluctuates but is quite bothersome, even if she takes the medication with food. The patient has episodic dizziness multiple times per day. This lasts a few seconds to a few minutes and then resolves. It is primarily triggered by quick gghb-cm-ehrr head movements. However, it canalso be provoked by standing up too quickly. She denies loss of consciousness, chest pain, shortness of breath, or palpitations. The patient's headaches have improved since her lumbar puncture on 09/25/23. She has approximately 2to 3 headaches per week recently. Location varies. She states these no longer feel like pressure. These are primarily mild in severity. They are not associated with vomiting or increased sensitivity to lights or sounds. She has tried xdrk-com-rgipqvt medications for her headaches, and these provide some relief. Her tinnitus has resolved since she got her ears drained. She denies any further concerns. Review of Systems Constitutional: Positive for fatigue. Negative for appetite change, chills, fever and unexpected weight change. HENT: Negative for hearing loss, tinnitus and trouble swallowing. Eyes: Negative for photophobia. Negative for visual change, double vision or loss of vision Respiratory: Negative for cough, shortness of breath and wheezing. Cardiovascular: Negative for chest pain and palpitations. Gastrointestinal: Positive for nausea. Negative for abdominal pain, blood in stool and vomiting. Musculoskeletal: Negative for arthralgias, gait problem and myalgias. Neurological: Positive for dizziness and headaches. Negative for tremors, seizures, syncope, facialasymmetry, speech difficulty, weakness, light- headedness and numbness. Positive for paresthesias (see HPI) Psychiatric/Behavioral: Negative for confusion, hallucinations and suicidal ideas. The patient is not nervous/anxious. Medication List acetazolamide 250 MG tablet; Commonly known as: Diamox albuterol (2.5 MG/3ML) 0.083% nebulizer solution albuterol HFA 90 mcg/act inhaler Radha Allergy 180 MG tablet; Generic drug: fexofenadine buspirone 5 MG tablet; Commonly known as: Buspar cholecalciferol 50 MCG (2000 UT) capsule; Commonly known as: Vitamin D-3 cyanocobalamin 1000 MCG tablet; Commonly known as: Vitamin B-12 drospirenone-ethinyl estradiol (Letty, Ocella) 3-0.03 MG tablet metFORMIN XR 500 MG 24 hr tablet; Commonly known as: Glucophage-XR ondansetron ODT 4 MG disintegrating tablet; Commonly known as: Zofran-ODT venlafaxine XR 75 MG 24 hr capsule; Commonly known as: Effexor XR Past Medical History: Diagnosis Date Adrenal mass, left (CMS/HCC) Childhood asthma (CMS/HCC) Depression (CMS/HCC) Family history of breast cancer Infertility, female Obesity (BMI 30-39.9) PCOS (polycystic ovarian syndrome) Seasonal allergies Varicella zoster Vitamin D deficiency Past Surgical History: Procedure Laterality Date ADRENAL GLAND SURGERY 2002 mass removed, benign CARPAL TUNNEL RELEASE Right 07/05/2022 Dr Foley CARPAL TUNNEL RELEASE Left 08/02/2022 Dr Foley SECTION, CLASSIC 2021 VAGINAL DELIVERY WISDOM TOOTH EXTRACTION Family History Problem Relation Name Age of Onset Hyperlipidemia Mother Other (pre-cancerous) Mother had laser, later had hysterectomy Other (varicose veins) Mother No Known Problems Father No Known Problems Sister No Known Problems Brother Breast cancer Maternal Grandmother Darcy [place] Uterine cancer Maternal Grandmother [place]cy [place] Cancer Maternal Grandmother Darcy [place] Uterine cancer Paternal Grandmother Kim Maay Cancer Paternal Grandmother Kim Maya Lung cancer Paternal Grandfather Other (seasonal allergies) Daughter Social History Tobacco Use Smoking status: Never Smokeless tobacco: Never Substance Use Topics Alcohol use: Yes Alcohol/week: 1.0 standard drink of alcohol Types: 1 Standard drinks or equivalent per week Allergies: Patient has no known allergies. Vitals: 10/15/23 1549 BP: 134/72 Pulse: 87 SpO2: 97% Body mass index is 44.93 kg/m . weight: 270 lb Neurologic exam: Mental status: Awake and alert with unlabored respirations. Oriented to person, place and time. Recent and remote memory are intact. Speech is clear and fluent without aphasia. Attention and concentration are normal. Fund of knowledge is appropriate for level of education. Cranial nerves: CN II: Visual acuity is normal. Visual hall full to confrontation. CN III, IV, : Pupils are equal, round, and reactive to light. Extraocular movements intact. No ptosis present. CN V: Facial sensation is normal. CN VII: Full and symmetric facial movement. CN VIII: Hearing is normal to finger rub bilaterally. CN IX and X: Palate elevates symmetrically. CN XI: Shoulder shrug is normal bilaterally. CN XII: Tongue is midline without atrophy or fasciculation. Motor: RUE strength deltoid , biceps , triceps , wrist extensors , wrist flexor , and tapping machine operator strength 5/5. LUE strength deltoid , biceps , triceps , wrist extensors , wrist flexor , and tapping machine operator strength 5/5. RLE strength iliopsoas, quadriceps, tibialis anterior, plantar flexion, and dorsiflexion strength 5/5. LLE strength iliopsoas, quadriceps, tibialis anterior, plantar flexion, and dorsiflexion strength 5/5. Tone and bulk are normal. Sensory: Sensation is intact to light touch throughout all four extremities. Sensation is intact to temperature in all extremities. Reflexes: RUE biceps reflex 2+ , brachioradialis reflex 2+. LUE biceps reflex 2+ , brachioradialis reflex 2+. RLE Knee reflex 1+. LLE Knee reflex 1+. Coordination: Vukpub-hc-eywa testing normal. Rapid alternating movements are normal. Gait: Normal. Review and summary of old records: Lumbar puncture (LP) at [facility] on 09/25/23: Opening pressure of 32 cm CSF. The patient denies any adverse effects to the LP. CSF on 09/25/23: CSF glucose 60, protein 23. Anaerobic culture no anaerobes isolated after 3 days. Aerobic culture no growth 2 days. Gram stain negative. PCR panel negative. I reviewed the patient's appointment note from [facility] on 09/03/23. Levi, OD identified very mild sixth cranial nerve palsy with no visual field loss or disc edema. VNG at [facility] on 08/29/23: There is evidence of significant peripheral vestibular dysfunction. Positive Eagle-Hallpike maneuver. This is suggestive of benign paroxysmal positional vertigo. There is also evidence of significant central vestibular dysfunction. MRI of the brain w and w/o contrast at [facility] on 08/15/23: There is flattening of the posterior lateral transverse sinuses bilaterally. There is prominence of CSF along the optic nerve sheath complex with tortuosity of optic nerves. There is flattening of the pituitary within the sella. This is atypical for the patient's age. Findings are suggestive of intracranial hypertension. No acute intracranial pathology or abnormal postcontrast enhancement. Assessment/Plan Diagnoses and all orders for this visit: Intracranial hypertension MRI of the brain on 08/15/23 revealed findings suggestive of intracranial hypertension. Diagnostic lumbar puncture confirmed this diagnosis with opening pressure of 32 cm CSF on 09/25/23. I believe this to be idiopathic. The patient reports approximately 2 to 3 mild headaches per week recently which are likely secondary to IIH. Her headaches significantly improvement following the LP. She denies double vision, vision loss, visual obscurations, or pulsatile tinnitus. She is an established patient at [facility] and plans to follow with them regularly for exams. I attempted to place the patient on acetazolamide for management, however, the medication has been poorly tolerated due to side effects (nausea, fatigue, paresthesias, and increased dizziness). She would like to trial an alternative medication. PLAN: - MR venography of the head to exclude secondary causes of increased intracranial pressure - Stop acetazolamide - Start furosemide 20 mg by mouth once a day. I counseled the patient on potential side effects including but not limited to fluid and electrolyte loss, kidney injury, tinnitus, hearing loss, and allergic reaction. She verbalizes understanding and wishes to proceed. We discussed ensuring adequate hydration and water intake while taking this medication - I discussed the importance of serial ophthalmology examinations with the patient to help prevent visual impairment/loss. She verbalizes understanding - I have counseled the patient on lifestyle interventions to help with weight loss Headache, unspecified headache type See above. Encounter for medication monitoring Furosemide prescription. PLAN: - Check CMP Dizziness The patient reports episodic, provoked dizziness. Given the clinical description, this seems most consistent with BPPV. Orthostatic hypotension secondary to dehydration and medication side effects may also be contributory. VNG on 08/29/23 identified evidence of significant peripheral vestibular dysfu nction (consistent with BPPV) and central vestibular dysfunction. Although VNG was suggestive of a central etiology, MRI of the brain on 08/15/23 did not reveal an apparent cause for her symptoms. The patient has also been evaluated by Dr. George (ENT) and was recommended to have a vestibular evaluation in [place], [place]. PLAN: - I reviewed VNG results with the patient - I provided the patient with instructions for home Marco maneuvers - I counseled the patient on the importance of ensuring adequate oral water intake. I advised her that she should drink at least 64 ounces of water per day if she has no history of heart failure or renal issues - Change positions slowly Diagnosis and treatment options discussed in detail. All questions answered. The patient verbalizesunderstanding and is agreeable to the plan. Discussion in layman's terms. Follow up in the office within 1 month; sooner if needed for new or worsening symptoms. Naya Butler NP [facility] documented in this [facility]09-09-2024 Instructions* Patient Instructions* Naya Butler NP - 10/15/2023 3:40 PM EDT - Stop acetazolamide - Start furosemide 20 mg by mouth once a day - Check labs documented in this [facility]08-20-2024 Evaluation note* Diagnosis Onset Date Resolution Status Admit Date Intracranial hypertension acute September 25, 2023 7:41am Headache acute September 26, 2 024 1:27pm Intracranial hypertension acute September 27, 2023 1:27pm Headache acute October 1:39pm Intracranial hypertension acute October 22, 2023 1:39pm [facility] Work Phone: 1(135) 744-730605-23-2024 Hospital Discharge instructionsAmbulatory Orders* Referral to Neurology Time Frame: 06/28/23, Location: None Selected [facility] Work Phone: 1(626) 970-581601-23-2023 Evaluation note* Encounter Date Diagnosis Assessment Notes Treatment Notes Treatment Clinical Notes Feb, Pain in right wrist (ICD-10 - M25.531) Feb, Pain in left wrist (ICD-10 - M25.532) [employer] Other 07-17-2022 NoteOPERATIVE NOTE OPERATION DATE: 08/22/2021 PROCEDURE: Primary low transverse section. PREOPERATIVE DIAGNOSIS: 1. Intrauterine at 40 and 5/7 days. 2. Failure to induce, Cervidil x2. POSTOPERATIVE DIAGNOSIS: 1. Intrauterine at 40 and 5/7 days. 2. Failure to induce, Cervidil x2. ANESTHESIA: Spinal with Duramorph. SURGEON: Ricci Mullins D.O. CLINICAL QUALITY ASSURANCE ASSOCIATE: REG Marcus URINE OUTPUT: Yellow and clear. [...] and cut. Cord blood was obtained. The was handed off to awaiting team. The [...] to the Recovery Room in stable condition. [facility] Signed and Approved by: DR RICCI MULLINS . 08/26/2021 08:15:00[id number] NoteDISCHARGE SUMMARY DISCHARGE DATE: 09/09/2021 PRIMARY DIAGNOSES: 1. [...] when pain free and no longer on narcotics.[facility]Zsjbrfum02-14-2751 NoteHNO ID: [id number] Author: Maurice Bonilla APRN.SCHOOL CROSSING GUARD SUPERVISOR Service: ? Author Type: Nurse Practitioner Type: [...] Total Time Spent: 5 minutes Maurice Bonilla APRN.SCHOOL CROSSING GUARD SUPERVISOR September 13, 2020 11:59 [facility] note[place] Information [place] [place] [employer] Other Evaluation note* Diagnosis Onset Date Resolution Status Acute middle ear effusion ac kaw Vertigo acute Vertigo acute [facility] Work Phone: Evaluation note* Diagnosis Onset Date Resolution Status Acute middle ear effusion ac kaw Vertigo acute Vertigo acute Acute middle ear effusion ac kaw Vertigo acute [facility] Work Phone: Evaluation note* Diagnosis Onset Date Resolution Status Acute middle ear effusion ac kaw Vertigo acute Vertigo acute Acute middle ear effusion ac kaw Vertigo acute Vertigo acute Dizziness of unknown etiology acute [facility] Work Phone: Evaluation note* Diagnosis Onset Date Resolution Status Vertigo acute Dizziness of unknown etiology acute [facility] Work Phone: Evaluation note* Diagnosis Onset Date Resolution Status Vertigo acute Dizziness of unknown etiology acute Bronchitis acute [facility] Work Phone: Evaluation note* Diagnosis Onset Date Resolution Status Dizziness of unknown etiology acute Bronchitis acute Headache acute Intracranial hypertension ac [facility] Work Phone: Evaluation note* Diagnosis Onset Date Resolution Status Dizziness of unknown etiology acute Bronchitis acute Headache acute Intracranial hypertension ac kaw Anxiety acute Headache acute Intracranial hypertension ac [facility] Work Phone: Evaluation note* Diagnosis Onset Date Resolution Status Bronchitis acute Headache acute Intracranial hypertension ac kaw Anxiety acute Headache acute Intracranial hypertension ac kaw Intracranial hypertension ac [facility] Work Phone: Evaluation note* Diagnosis Onset Date Resolution Status Bronchitis acute Headache acute Intracranial hypertension ac kaw Anxiety acute Headache acute Intracranial hypertension ac kaw Intracranial hypertension ac kaw Headache acute Intracranial hypertension ac [facility] Work Phone: Evaluation note* Diagnosis Onset Date Resolution Status Headache acute Intracranial hypertension ac kaw Anxiety acute Headache acute Intracranial hypertension ac kaw Intracranial hypertension ac kaw Headache acute Intracranial hypertension ac kaw Headache acute Intracranial hypertension ac kaw [facility] Work Phone: Evaluation note* Diagnosis Intracranial hypertension- Primary Benign intracranial hypertension Dizziness Dizziness and giddiness Class 3 severe obesity due to excess calories with serious comorbidity and body mass index (BMI) of 45.0 to 49.9 in adult ([facility]) documented in this encounter [facility]* Diagnosis Dizziness- Primary Dizziness and giddiness Intracranial hypertension Benign intracranial hypertension Class 3 severe obesity due to excess calories with serious comorbidity and body mass index (BMI) of 45.0 to 49.9 in adult ([facility]) Encounter for medication monitoring Encounter for therapeutic drug monitoring Cervicalgia- Primary Balance disorder documented in this encounter [facility]* Diagnosis Cervicalgia- Primary Balance disorder Dizziness Dizziness and giddiness Vertigo of central origin documented in this encounter [facility]* Diagnosis Intracranial hypertension- Primary Benign intracranial hypertension Encounter for medication monitoring Encounter for therapeutic drug monitoring Headache, unspecified headache type Dizziness Dizziness and giddiness documented in this encounter [facility] HealthcareEvaluation note* Diagnosis Cervicalgia- Primary Vertigo of central origin Balance disorder documented in this encounter [facility]* Diagnosis Well woman exam with routine gynecological exam Routine gynecological examination control counseling documented in this encounter [facility] HealthcareHistory general Narrative - Reported* Type Description Date Medical History BMI 40.0-44.9, adult Medical History PCOS (polycystic ovarian syndrom e) Medical History Amenorrhea, secondary Medical History Bronchitis Medical History Depression Surgical History ADRENALECTOMY, TOTAL, LEFT / 014 Hospitalization History C SECTION [employer] Other History general Narrative - Reported* Type Description Date Medical History BMI 40.0-44.9, adult Medical History PCOS (polycystic ovarian syndrom e) Medical History Amenorrhea, secondary Medical History Bronchitis Medical History Depression Surgical History ADRENALECTOMY, TOTAL, LEFT 05/07 014 Surgical History Carpal tunnel bilateral 06/2022 Hospitalization History [facility] [employer] Other Hospital Discharge instructionsAmbulatory Orders* Referral to Psychiatry Time Frame: 03/06/24, Location: None Selected [facility] Work Phone: Reason for visit Narrative* Rehabilitation - Outpatient (Routine) - Pending Review Specialty Diagnoses / Procedures Referred By Contac t Referred To Contact Physical Therapy Diagnoses Dizziness Procedures ME OFFICE/OUTPATIENT [facility] Naya Butler, BODY SHOP ESTIMATOR [address] [place] [phone] Phone: tel: Yun Naranjo, PT [address] [place] [address] Phone: tel: fax: Referral ID Status Reason Start Date Expiration Date Visits Requested Visits Authorized [id number] Pending Review Consult and Treat 07/20/2024 1 1 [facility] HealthcareReason for visit Narrative* Rehabilitation - Outpatient (Routine) - Authorized Specialty Diagnoses / Procedures Referred By Harry bernard Referred To Contact Physical Therapy Diagnoses Dizziness Procedures ME OFFICE/OUTPATIENT [facility] Naya Butler, BODY SHOP ESTIMATOR [address] [place] [address] Phone: tel: Yun Naranjo, PT [address] [place] [address] Phone: tel: fax: Referral ID Status Reason Start Date Expiration Date Visits Requested Visits Authorized [id number] Authorized Consult and Treat 01/22/2024 02/05/2024 40 40 [facility] Summary Purpose Family History Relationship Condition Age at Onset Recorded Date/T morgan father Diabetes mellitus Unknown Alcoholism Unknown Advance Directives Advance Directive Response Recorded Date/ Time Advance Directives No October 8:34am Advance Directive Response Recorded Date/ Time Advance Directives No October 7:34am Reason for Referral Reason 03/16/22 lena off ice Diagnosis 1 Pain in right wrist (M25.531) Referral Organization [facility] Medical C naveen Referring Provider First Name Alyssa Referring Provider Last Name Brady Referring Provider Specialty Family [facility] Referred Organization [facility] Referred Provider Ej Foley Referred Address ,[place], [place],[address] Referred Provider Specialty Orthopedic S urgery Referral [...] and reviewed. closing referral at this time. Specialty Diagnoses / Procedures Referred By Contac t Referred To Contact Radiology Diagnoses Intracranial hypertension Procedures MR venous head w and wo IV contrast Naya Butler NP [address] [place] [phone] [facility] Central Scheduling [address] [place] [address] Referral ID Status Reason Start Date Expiration Date V isits Requested Visits Authorized [id number] Pending Review 10/16/2023 04/13/2024 1 1 Chief Complaint and Reason for Visit Chief Complaint Wellness return to work Vertigo K/C/B Vertigo vertigo - fmla Reason for Visit Acute middle ear eff usion Vertigo Vertigo Chief Complaint Wellness return to work Vertigo vertigo - fmla K/C/B Vertigo return to work discussion Reason for Visit Acute middle ear eff usion Vertigo Vertigo Acute middle ear effusion Vertigo Chief Complaint return to work Vertigo vertigo - fmla K/C/B Vertigo return to work discussion Amb Documentation FMLA paperwork Reason for Visit Acute middle ear eff usion Vertigo Vertigo Acute middle ear effusion Vertigo Vertigo Dizziness of unknown etiology Chief Complaint K/C/B Vertigo return to work discussion Amb Documentation FMLA paperwork Reason for Visit Vertigo Dizziness of unknown etiology Chief Complaint K/C/B Vertigo return to work discussion Amb Documentation FMLA paperwork r27.0 Reason for Visit Vertigo Dizziness of unknown etiology Bronchitis Chief Complaint K/C/B Vertigo return to work discussion Amb Documentation FMLA paperwork r27.0 HFM Reason for Visit Vertigo Dizziness of unknown etiology Bronchitis Chief Complaint Amb Documentation FMLA paperwork r27.0 HFM dizzy , anxiety discuss fmla Reason for Visit Dizziness of unknown etiology Bronchitis Headache Intracranial hypertension Chief Complaint FMLA paperwork r27.0 HFM dizzy , anxiety discuss fmla headaches Reason for Visit Dizziness of unknown etiology Bronchitis Headache Intracranial hypertension Anxiety Headache Intracranial hypertension Chief Complaint r27.0 HFM dizzy , anxiety discuss fmla headaches discuss some things Reason for Visit Bronchitis Headache Intracranial hypertension Anxiety Headache Intracranial hypertension Intracranial hypertension Chief Complaint r27.0 HFM dizzy , anxiety discuss fmla headaches discuss some things FMLA paperwork Reason for Visit Bronchitis Headache Intracranial hypertension Anxiety Headache Intracranial hypertension Intracranial hypertension Headache Intracranial hypertension Chief Complaint r27.0 HFM dizzy , anxiety discuss fmla headaches discuss some things FMLA paperwork G93.2 Reason for Visit Headache Intracranial hypertension Anxiety Headache Intracranial hypertension Intracranial hypertension Headache Intracranial hypertension Headache Intracranial hypertension Chief Complaint Admit Date headaches September 25, 2023 7: 41am discuss some things September 27, 2023 1: 27pm FMLA paperwork October 22, 2023 1:39pm G93.2 November 09, 2023 6: 41am CC Adult Risk Stratification December 192023 2:57pm Hands,Foot,Mouth-HIGH RISK December 3:19pm Reason for Visit Admit Date Intracranial hypertension September 24 024 7:41am Headache September 27, 2023 1: 27pm Intracranial hypertension September 26 024 1:27pm Headache October 22, 2023 1:39pm Intracranial hypertension October 1:39pm Chief Complaint Admit Date CC Adult Risk Stratification December 192023 2:57pm Hands,Foot,Mouth-HIGH RISK December 3:19pm FMLA Paperwork-HIGH RISK January 17, 2024 3:29pm Sinus infection/dizziness February 13, 2 025 11:20am Reason for Visit Admit Date Intracranial hypertension December 24, 2023 3:19pm PCOS (polycystic ovarian syndrome) Novem 2023 3:19pm Hand, foot and mouth disease December 232023 3:19pm Anxiety January 17, 2024 3:29pm Intracranial hypertension January 17, 2024 3:29pm Sinusitis, acute maxillary January 3:29pm Chief Complaint Admit Date CC Adult Risk Stratification December 192023 2:57pm Hands,Foot,Mouth-HIGH RISK December 3:19pm FMLA Paperwork-HIGH RISK January 17, 2024 3:29pm Sinus infection/dizziness February 13, 2 025 11:20am work accommodations February 26, 2024 9 :58am Reason for Visit Admit Date Intracranial hypertension December 24, 2023 3:19pm PCOS (polycystic ovarian syndrome) Novem 2023 3:19pm Hand, foot and mouth disease December 232023 3:19pm Anxiety January 17, 2024 3:29pm Intracranial hypertension January 17, 2024 3:29pm Sinusitis, acute maxillary January 3:29pm Intracranial hypertension February 13, 2 025 11:20am Sinusitis, acute maxillary February 14, 2024 11:20am Chief Complaint Admit Date CC Adult Risk Stratification December 192023 2:57pm Hands,Foot,Mouth-HIGH RISK December 3:19pm FMLA Paperwork-HIGH RISK January 17, 2024 3:29pm Sinus infection/dizziness February 13, 2 025 11:20am work accommodations February 26, 2024 9 :58am FMLA-HIGH RISK March 06, 2024 9 :23am Reason for Visit Admit Date Intracranial hypertension December 24, 2023 3:19pm PCOS (polycystic ovarian syndrome) Novem 2023 3:19pm Hand, foot and mouth disease December 232023 3:19pm Anxiety January 17, 2024 3:29pm Intracranial hypertension January 17, 2024 3:29pm Sinusitis, acute maxillary January 3:29pm Intracranial hypertension February 13, 2 025 11:20am Sinusitis, acute maxillary February 14, 2024 11:20am Dizziness of unknown etiology February 252024 9:58am Intracranial hypertension February 26, 2024 9:58am Panic attacks March 06, 2024 9 :23am Additional Source Comments INFORMATION SOURCE (unrecogn ized section and content) DATE CREATED AUTHOR 07/26/2017 [facility] DATE CREATED AUTHOR AUTHOR'S ORGANIZ ATION 02/24/2021 [facility] DATE CREATED AUTHOR AUTHOR'S ORGANIZ ATION 03/04/2022 [facility] DATE CREATED AUTHOR AUTHOR'S ORGANIZ ATION 08/21/2023 [facility] DATE CREATED AUTHOR AUTHOR'S ORGANIZ ATION 11/18/2023 [facility] DATE CREATED AUTHOR AUTHOR'S ORGANIZ ATION 02/06/2024 [facility] EPIC REASON FOR VISIT (unrecogniz ed section and content) Reason Comments Dizziness Headache Reason Comments Headache Reason Comments Well Women Visit Care Teams (unrecognized sec tion and content) Team Status: Active Member Role Status Dates Alyssa Butterfield MD Primary Care Provider Active Team Status: Active Member Role Status Dates Alyssa Butterfield MD Primary Care Provide r, Attending Provider Active Start: December 20, 2023 Team Status: Inactive Member Role Status Dates Alyssa Butterfield MD Primary Care Provide r, Attending Provider Active Start: December 24, 2023 End: December 24, 2023 Team Status: Inactive Member Role Status Enrique Butterfield MD Primary Care Provide r, Attending Provider Active Start: January 17, 2024 End: January 17, 2024 Team Status: Inactive Member Role Status Enrique Butterfield MD Primary Care Provide r, Attending Provider Active Start: February 14, 2024 End: February 14, 2024 Team Status: Inactive Member Role Status Dates Alyssa Butterfiedl MD Primary Care Provide r, Attending Provider Active Start: June 28, 2023 End: June 28, 2023 Team Status: Inactive Member Role Status Enrique Butterfield MD Primary Care Provide r, Attending Provider Active Start: July 31, 2023 End: July 31, 2023 Team Status: Inactive Member Role Status Dates Alyssa Butterfield MD Primary Care Provider Active Start: August 15, 2023 End: August 15, 2023 Bonnie Johnson DO Attending Provider Active Start: August 15, 2023 End: August 15, 2023 Team Status: Inactive Member Role Status Dates Alyssa Butterfield MD Primary Care Provide r, Attending Provider Active Start: August 16, 2023 End: August 16, 2023 Team Status: Inactive Member Role Status Enrique Butterfield MD Primary Care Provide r, Attending Provider Active Start: September 06, 2023 End: September 06, 2023 Team Status: Inactive Member Role Status Dates Alyssa Butterfield MD Primary Care Provider Active Start: September 25, 2023 End: September 25, 2023 Naya Butler CELL COVERER-BURGLARY INVESTIGATOR-C Attending Provider Active Start: September 25, 2023 End: September 25, 2023 Team Status: Active Member Role Status Dates Alyssa Butterfield MD Primary Care Provider Active Start: June 08, 2023 VERENICE Lawrence Attending Provider Active Start : June 08, 2023 Team Status: Inactive Member Role Status Dates Alyssa Butterfield MD Attending Provider Active St art: March 08, 2023 End: March 08, 2023 Team Status: Inactive Member Role Status Enrique Butterfield MD Primary Care Provide r, Attending Provider Active Start: April 16, 2023 End: April 16, 2023 Team Status: Inactive Member Role Status Enrique Butterfield MD Primary Care Provide r, Attending Provider Active Start: April 18, 2023 End: April 18, 2023 Team Status: Active Member Role Status Enrique Butterfield MD Primary Care Provide r, Attending Provider Active Start: April 25, 2023 Team Status: Inactive Member Role Status Enrique Butterfield MD Primary Care Provide r, Attending Provider Active Start: April 30, 2023 End: April 30, 2023 Team Status: Active Member Role Status Enrique Butterfield MD Primary Care Provide r, Attending Provider Active Start: May 25, 2023 Team Status: Inactive Member Role Status Enrique Butterfield MD Primary Care Provide r, Attending Provider Active Start: May 30, 2023 End: May 30, 2023 Team Status: Inactive Member Role Status Enrique Butterfield MD Primary Care Provide r, Attending Provider Active Start: May 25, 2023 End: May 25, 2023 Team Status: Inactive Member Role Status Enrique Butterfield MD Primary Care Provide r, Attending Provider Active Start: September 27, 2023 End: September 27, 2023 Team Status: Inactive Member Role Status Dates Alyssa Butterfield MD Primary Care Provide r, Attending Provider Active Start: October 22, 2023 End: October 22, 2023 Team Status: Inactive Member Role Status Dates Alyssa Butterfield MD Primary Care Provider Active Start: November 09, 2023 End: November 09, 2023 Naya Alessandro Butler , CELL COVERER-BURGLARY INVESTIGATOR-C Attending Provider Active Start: November 09, 2023 End: November 09, 2023 Outside Sales Advertising Executive Relationship Specialty Start Date End Date Alyssa Butterfield MD [address] [place] [facility] [place] [phone] PCP - General Family Medicine 06/27/22 Outside Sales Advertising Executive Relationship Specialty Start Date End Date Alyssa Butterfield MD [address] [place] [facility] [place] [phone] PCP - General Family Medicine 06/27/22 Outside Sales Advertising Executive Relationship Specialty Start Date End Date Alyssa Butterfield MD [address] [place] [facility] [place] [phone] PCP - General Family Medicine 06/27/22 Outside Sales Advertising Executive Relationship Specialty Start Date End Date Alyssa Butterfield MD [address] [facility] [place] [phone] PCP - General Family Medicine 06/27/22 Outside Sales Advertising Executive Relationship Specialty Start Date End Date Alyssa Butterfield MD [address] [place] [facility] [place] [phone] PCP - General Family Medicine 06/27/22 Outside Sales Advertising Executive Relationship Specialty Start Date End Date Alyssa Butterfield MD [address] [place] [facility] [place] [phone] PCP - General Family Medicine 06/27/22 Outside Sales Advertising Executive Relationship Specialty Start Date End Date Alyssa Butterfield MD [address] [place] [facility] [place] [phone] PCP - General Family Medicine 06/27/22 Outside Sales Advertising Executive Relationship Specialty Start Date End Date Alyssa Butterfield MD [address] [place] [facility] [place] [phone] PCP - [facility] 06/27/22 Outside Sales Advertising Executive Relationship Specialty Start Date End Date Aylssa Butterfield MD [address] [place] [facility] [phone] PCP - [facility] 06/27/22 Team Status: Inactive Member Role Status Dates Alyssa Butterfield MD Primary Care Provide r, Attending Provider Active Start: February 26, 2024 End: February 26, 2024 Outside Sales Advertising Executive Relationship Specialty Start Date End Date Alyssa Butterfield MD [address] [place] [facility] [place] [phone] PCP - General Family Medicine 06/27/22 Team Status: Inactive Member Role Status Dates Alyssa Butterfield MD Primary Care Provide r, Attending Provider Active Start: March 06, 2024 End: March 06, 2024 Goals (unrecognized section and content) Goals may be documented in a n alternate section FOR RECORDS PERTAINING TO PATIENTS WHO ARE [...] BE BASED ON THE PRIMARY CLINICAL RECORDS. [facility] [employer] [facility]. provides no warranty or guarantee of the accuracy or completeness of information in this document.
[2024-03-12 11:08] LABS: Age Gdln ACOG Testing Note (.); HPV Aptima Negative (Negative); IGP, Aptima HPV, rfx 16/18,45 Note (.)
== END 2024-03-06 18:57 | disposition home or self-care (01) ==
LOC: LAB 18:56
PROVIDERS: Visit Provider Obstetrics & Gynecology
DX: Z01.419 Encounter for gynecological examination (general) (routine) without abnormal findings (principal)
CPT/HCPCS: 87624; 88175

== ENCOUNTER 2024-05-17 08:20 | Outpatient (OUT) | payer OTHER, SELFPAY ==
--- OUTSIDE RECORDS SUMMARY | 2024-05-17 08:27 | XMS_ITS | CCD ---
Author Organization [facility] CliniSynh Care Team Providers Care Sound Engineering Technician Name Role Phone HARVINDER COLLINS Unavailable Unavailable HARVINDER COLLINS Unavailable Unavailable MISC, DOCTOR Unavailable Unavailable HARVINDER COLLINS Unavailable Unavailable HARPREET, DR HAYNES Attending Unavailable BUTTERFIELD, DR ALYSSA Francois Primary Care Unavailable [place], DR KULWINDER Lin Consulting Unavailable HARPREET, DR [...] HARPREET, DR HAYNES Procedure Practitioner Unavailab le AGUBOSIM, MARCK Consulting Unavailable HARPREET, DR HAYNES Attending Unavailable HARPREET, DR HAYNES Admitting Unavailable BUTTERFIELD, DR ALYSSA Francois Primary Care Unavailable [place], DR KULWINDER Lin Consulting Unavailable HARPREET, DR HAYNES Consulting Unavailable Alyssa Butterfield Unavailable MD Alyssa Butterfield Primary Care Provider MD Alyssa Butterfield Attending Provider MD Alyssa Butterfield Primary Care Provider MD Alyssa Butterfield Attending Provider ALYSSA BUTTERFIELD Primary Care Unavailable DO Bonnie Johnson Attending Provider [phone] MD Alyssa Butterfield Primary Care Provider Luke, BRANCH ACCOUNT EXECUTIVE-BOTTOMING ROOM SUPERVISOR-C Naya Francois Attending Provider Naya Butler Admitting Unavailable Naya Butler Attending Unavailable Alyssa Butterfield Primary Care Unavailable Bonnie Johnson Admitting Unavailab Bonnie Dixon Attending Unavailab le Alyssa Butterfield Primary Care Unavailable Alyssa Butterfield Admitting Unavailable Alyssa Butterfield Attending Unavailable Alyssa Butterfield Primary Care Unavailable Naya Butler Admitting Unavailable Naya Butler Attending Unavailable Alyssa Butterfield Primary Care Unavailable Alyssa Butterfield MD Primary Care Provider Alyssa Butterfield MD Primary Care Provider Butler BRANCH ACCOUNT EXECUTIVE-BOTTOMING ROOM SUPERVISOR-C, Naya Francois Attending Provider Bonnie Johnson DO Unavailable RICCI MULLINS Attending Unavailable NAYA BUTLER Attending Unavailable NAYA BUTLER Attending Unavailable MERISSA CRAFT Attending Unavailable ALYSSA BUTTERFIELD Referring Unavailable ALEXANDER GEORGE Attending Unavailable ALYSSA BUTTERFIELD Referring Unavailable BONNIE JOHNSON Attending Unavailable NAYA BUTLER Attending Unavailable BONNIE JOHNSON Referring Unavailable NAYA BUTLER Attending Unavailable BONNIE JOHNSON Attending Unavailable NAYA BUTLER Attending Unavailable YUN NARANJO Attending Unavailable NAYA BUTLER Referring Unavailable YUN NARANJO Attending Unavailable NAYA BUTLER Referring Unavailable Alyssa Butterfield MD Primary Care Provider Allergies Allergy Classification Reported Allergen(s) Allergy Type Date of Onset Reaction(s) Facility (1 source) patient allergy list reviewed by nurse or physicia Propensity to adverse reactions 9 Comment:Done manetch Other (1 source) Allergies Reconciled Propensity to adverse reactions Unknown manetch Other Medications Current Medications Medication Drug Class(es) Dates Sig (Normalized) Sig (Original) albuterol 0.83 mg/ml inhalation solution (20 sources) beta2-Adrenergic Agonist Start: 12-30-2022 albuterol 2.5 mg /3 mL (0.083 %) nebulizer solution 3 mL (2.5 mg) every 6 hours if needed for wheezing or shortness of breath. 12/30/2022 Active Start: 12-30-2022 albuterol (2.5 MG/3ML) 0.083% nebulizer solution Take 2.5 mg by nebulization every 6 (six) hours if needed 12/30/2022 Active Start: 12-30-2022 take 2 puff(s) by in halation every six hours albuterol HFA 90 mcg/act inhaler Inhale 2 puffs every 6 (six) hours if needed 12/30/2022 Active amoxicillin 875 mg / clavulanate 125 mg oral tablet (5 sources) Penicillin-class Antibacterial Start: 05-01-2024 take 1 tablet by mouth twice daily Amoxicillin-Pot Clavulanate 875-125 mg tablet Active 1 TAB PO Twice daily May 01, 2024 3:07pm Start: 02-14-2024 End: 02-26-2024 take 1 tablet by mouth twice daily Amoxicillin-Pot Clavulanate 875-125 mg tablet Discontinued 1 TAB PO Twice daily February 14, 2024 1:00am February 26, 2024 11:05am aspirin 81 mg delayed release oral tablet (2 sources) Platelet Aggregation Inhibitor, Nonsteroidal Anti-inflammatory Drug take 1 tablet by mouth every twenty-four hours Aspirin 81 MG 1 tablet Orally Once a day Active cholecalciferol 0.05 mg oral capsule (20 sources) Vitamin D take 1 capsule by mouth once daily cholecalciferol (Vitamin D-3) 50 mcg (2,000 units) capsule Take 1 capsule (2,000 Units) by mouth once daily. Active take 1 capsule by mouth in the m orning cholecalciferol (Vitamin D-3) 50 MCG (2000 UT) capsule Take 2,000 Units by mouth in the morning. Active drospirenone 4 mg oral tablet (11 sources) Progestin Start: 03-06-2024 End: 05-29-2024 take 1 tablet by mouth once daily Drospirenone (Contraceptive) (Slynd) 4 mg (28) tablet Active 1 TAB PO Daily March 27, 2024 1:00am drospirenone 3 mg / ethinyl estradiol 0.03 mg oral tablet (20 sources) Progestin, Estrogen Start: 08-29-2023 End: 08-28-2024 drospirenone-ethinyl estradiol (Letty, Ocella) 3-0.03 MG tablet Indications: control counseling Take 1 tablet by mouth Daily 84 tablet 3 08/29/2023 08/28/2024 Active DROSPIRENONE, CONTRACEPTIVE, ORAL (1 source) Start: 03-27-2024 DROSPIRENONE, CONTRACEPTIVE, ORAL Drospirenone (Contraceptive) (Slynd) 4 mg (28) tablet Active 1 TAB PO Daily March 27, 2024 1:00am 03/27/2024 Active fexofenadine hydrochloride 180 mg oral tablet (20 sources) Histamine-1 Receptor Antagonist take 1 tablet by mouth once daily fexofenadine (Radha) 180 mg tablet Take 1 tablet (180 mg) by mouth once daily. Active Radha Not-Taki ng/PRN Radha Not-Taki ng fluticasone propionate 0.05 mg/actuat metered dose nasal spray (4 sources) Corticosteroid take 1 spray(s) nasal route once daily as needed fluticasone (Flonase) 50 mcg/actuation nasal spray Administer 1 spray into affected nostril(s) once daily as needed. Active Flonase Not-Taki ng/PRN Flonase Not-Taki ng furosemide 20 mg oral tablet (20 sources) Loop Diuretic Start: 04-23-2024 take 2 tablets by mouth once daily furosemide (Lasix) 20 mg tablet Take 2 tablets (40 mg) by mouth once daily. 04/23/2024 Active Start: 10-16-2023 End: 01-14-2024 take 1 tablet by mouth once daily Furosemide 20 mg tablet Active 20 MG PO Daily October 22, 2023 12:00am letrozole 2.5 mg oral tablet (4 sources) Aromatase Inhibitor letrozole (F emara) 2.5 mg tablet Take by mouth. Active meclizine hydrochloride 25 mg oral tablet (20 sources) Antiemetic Start: take 1 tablet by mouth three times daily as needed meclizine (Antivert) 25 MG tablet Take 25 mg by mouth 3 (three) times a day as needed 04/18/2023 Active Start: 04-16-2023 End: 01-17-2024 Meclizine 25 mg tablet Disco ntinued 25 MG PO 2-3 TIMES PER DAY as needed for dizziness April 18, 2023 10:41am January 17, 2024 5:00pm 24 hr metoprolol succinate 25 mg extended release oral tablet (1 source) beta-Adrenergic Finesse Start: 05-15-2024 End: 05-15-2025 take 1 tablet by mouth once daily metoprolol succinate XL (Toprol-XL) 25 mg 24 hr tablet Indications: Palpitations , Tachycardia Take 1 tablet (25 mg) by mouth once daily. Do not crush or chew. 90 tablet 3 05/15/2024 05/15/2025 Active Naproxen (18 sources) Nonsteroidal Anti-inflammatory Drug End: 03-06-2024 NAPROXEN PO Naproxen 03/06/2024 Discontinued NAPROXEN PO Napr oxen Active ondansetron 4 mg disintegrating oral tablet (20 sources) Serotonin-3 Receptor Antagonist Start: 08-16-2023 End: 03-06-2024 take 1 tablet by mouth every eight hours as needed ondansetron ODT (Zofran-ODT) 4 mg disintegrating tablet 1 tablet (4 mg) every 8 hours if needed. 08/16/2023 Active (3 sources) Active Vit-Fe Fumarate-FA ( VITAMINS PO) (18 sources) End: 03-06-2024 take 1 tablet by mouth once daily Vit-Fe Fumarate-FA ( VITAMINS PO) Take 1 tablet by mouth Daily 03/06/2024 Discontinued take 1 tablet by mouth once ten y Vit-Fe Fumarate-FA ( VITAMINS PO) Take 1 tablet by mouth Daily Active 24 hr venlafaxine 37.5 mg extended release oral capsule (20 sources) Serotonin and Norepinephrine Reuptake Inhibitor Start: 03-28-2024 take 1 capsule by mouth once daily Venlafaxine 37.5 mg capsule,extended release 24hr Active 37.5 MG PO Daily May 01, 2024 12:00am Start: 07-31-2023 take 75 mg by mouth once daily Venlafaxine Active 75 MG PO Daily July 31, 2023 3:29pm Start: 05-22-2023 take 1 capsule by mo [facility] once daily venlafaxine XR (Effexor-XR) 75 mg 24 hr capsule Take 1 capsule (75 mg) by mouth once daily. 05/22/2023 Active Start: 04-13-2023 End: 03-06-2024 take 1 capsule by mouth once daily Venlafaxine 37.5 mg capsule,extended release 24hr Discontinued 75 MG PO Daily July 31, 2023 3:29pm March 06, 2024 10:47am take 1 capsule by [facility] every twenty-four hours Effexor XR 37.5 MG 1 capsule with food Orally Once a day for 90 days Active vitamin b12 1 mg oral tablet (20 sources) Vitamin B12 take 1 tablet by mouth once daily cyanocobalamin (Vitamin B-12) 1,000 mcg tablet Take 1 tablet (1,000 mcg) by mouth once daily. Active Completed/Discontinued Medications Medication Drug Class(es) Dates [...] tablet 2 09/30/2023 10/15/2023 Discontinued (Side effects) azithromycin 250 mg oral tablet (16 sources) Macrolide Antimicrobial Start: 07-31-2023 End: 08-16-2023 Azithromycin 250 mg tablet Discontinued 0 PO .COMPLEX 6 July 31, 2023 12:00am August 16, 2023 [...] 5 MG PO Daily January 17, 2024 5:00pm March 06, 2024 10:44am Start: 09-06-2023 End: 01-17-2024 take 1 tablet by mouth twice daily as needed for anxiety Buspirone 5 mg tablet Discontinued 5 MG PO Twice daily as needed for anxiety November 06, 2023 10:56am January 17, 2024 5:00pm docosahexaenoic acid 200 mg oral capsule (18 sources) Start: 04-13-2023 End: 09-25-2023 Docosahexaenoic Acid ( Dha) 200 mg capsule Discontinued MG PO April 13, 2023 1:00am September 25, 2023 7:59am medroxyPROGESTERone acetate 10 mg oral tablet (3 sources) Progestin medroxyPROGESTER one Acetate 10 MG TAKE 1 TABLET BY MOUTH DAILY UP TO 10 DAYS UNTIL THE START OF MONTHLY CYCLE Oral for 10 Not-Taking/PRN 24 hr metFORMIN hydrochloride 500 mg extended release oral tablet (20 sources) Biguanide Start: 09-17-2023 End: 03-21-2024 take 1 tablet by mouth twice daily Metformin 500 mg tablet extended release 24 hr Discontinued 0 .ROUTE .COMPLEX 180 December 20, 2023 5:05pm March 21, 2024 1:46pm TAKE 1 TABLET BY MOUTH TWICE DAILY Start: 06-08-2023 End: 09-17-2023 take 1 tablet by mouth twice daily Metformin 500 mg tablet extended release 24 hr Discontinued 500 MG PO Twice daily 180 June 11, 2023 8:34am September 17, 2023 11:42am Start: 04-13-2023 End: 06-08-2023 take 1 tablet by mouth once daily Metformin 500 mg tablet extended release 24 hr Discontinued 500 MG PO Daily June 07, 2023 12:53pm June 08, 2023 3:42pm Start: 12-14-2020 End: 04-13-2023 take 1 tablet by mouth twice daily Metformin 500 mg tablet extended release 24 hr Discontinued 500 MG PO Twice daily December 14, 2020 1:00am April 13, 2023 11:21am take 1 tablet by gabriela th every twenty-four hours in the morning metFORMIN XR (Glucophage-XR) 500 MG 24 hr tablet Take 500 mg by mouth in the morning and 500 mg in the evening. Take after meals. Active take 1 tablet by gabriela th every twenty-four hours metFORMIN HCl ER 500 MG 1 tablet with evening meal Orally Once a day Active omeprazole 40 mg delayed release oral capsule (3 sources) Proton Pump Inhibitor take 1 capsule by mouth once daily Omeprazole 40 MG 1 capsule 30 minutes before morning meal Orally Once a day Not-Taking/PRN sertraline 50 mg oral tablet (20 sources) Serotonin Reuptake Inhibitor Start: End: take 1 tablet by mouth once daily Sertraline 50 mg Tablet Discontinued 50 MG PO Daily December 14, 2020 1:00am April 13, 2023 11:21am Problems Active Problems Problem Classification Problem Date Documented Da te Episodic/Chronic Abdominal pain (2 sources) Generalized abdominal pain; Translations: [Generalized abdominal pain] Onset: 5 Episodic Acute and chronic tonsillitis (20 sources) Chronic tonsillitis; Translations: [Chronic tonsillitis] Onset: 8 07-12-2022 Chronic Administrative/social admission (2 sources) First encounter by subject; Translations: [Persons encountering health services in other specified circumstances] Onset: 5 05-15-2024 Episodic Anxiety disorders (20 sources) Anxiety; Translations: [Anxiety disorder, unspecified] Onset: 5 09-06-2023 Chronic Cardiac dysrhythmias (6 sources) Palpitations; Translations: [Palpitations] Onset: 5 05-15-2024 Episodic Chronic obstructive pulmonary disease and bronchiectasis (20 sources) Bronchitis; Translations: [Bronchitis, not specified as acute or chronic] 08-01-2023 Episodic Conditions associated with dizziness or vertigo (20 sources) Vertigo; Translations: [Dizziness and giddiness] Onset: 4 04-16-2023 Episodic Disorders of lipid metabolism (2 sources) Mixed hyperlipidemia; Translations: [Mixed hyperlipidemia] Onset: 5 05-15-2024 Chronic Early or threatened labor (1 source) False labor; Translations: [False labor, unspecified] Episodic Esophageal disorders (20 sources) Gastroesophageal reflux disease; Translations: [Gastro-esophageal reflux [...] [ENC SCREENING HUMAN PAPILLOMAVIRUS] Onset: 3 Episodic Malaise and fatigue (1 source) Fatigue; Translations: [Other fatigue] 05-01-2024 Episodic Menstrual disorders (20 sources) Amenorrhea; Translations: [Secondary amenorrhea] Onset: 7 06-08-2022 Chronic Mood disorders (20 sources) Depressive disorder; Translations: [Depression] Onset: 3 04-13-2023 Chronic Nutritional deficiencies (2 sources) Vitamin D deficiency; Translations: [Vitamin D deficiency, unspecified] Onset: 5 05-15-2024 Chronic Other aftercare (1 source) History and physical examination, follow-up; Translations: [Encounter for follow-up examination after completed treatment for conditions other than malignant neoplasm] Episodic Other aftercare (8 sources) Patient encounter status; Translations: [Encounter for [...] , second trimester] Episodic Other complications of (18 sources) Complication of , childbirth and/or the puerperium; Translations: [Other specified related conditions, unspecified trimester] 01-17-2023 Episodic Comment on above: Problem List clean-u p per request of Phys. EHR Cmte Other endocrine disorders (4 sources) Polycystic ovarian syndrome; Translations: [Polycystic ovaries] Onset: 2 12-24-2023 Chronic Other endocrine disorders (4 sources) Polycystic ovaries; Translations: [Polycystic ovarian syndrome] Chronic Other endocrine disorders (20 sources) Mass of left adrenal gland; Translations: [Other specified disorders of adrenal gland] Onset: 3 06-08-2022 Chronic Other endocrine disorders (20 sources) Polycystic ovary; Translations: [Polycystic ovarian syndrome] Onset: 3 06-08-2022 Chronic Other endocrine disorders (7 sources) Polycystic ovary syndrome; Translations: [Polycystic ovarian syndrome] Onset: 5 01-01-2024 Chronic Other endocrine disorders (2 sources) Adrenal mass; Translations: [Other specified disorders of adrenal gland] Onset: 5 05-15-2024 Chronic Other gastrointestinal disorders (3 sources) Irritable bowel syndrome with diarrhea; Translations: [Irritable bowel syndrome with diarrhea] Chronic Other gastrointestinal disorders (1 source) Passing flatus; Translations: [Flatulence] Episodic Other lower respiratory disease (5 sources) Dyspnea on exertion; Translations: [Shortness of breath] Onset: 5 05-15-2024 Episodic Other lower respiratory disease (2 sources) Snoring; Translations: [Snoring] Onset: 5 05-15-2024 Episodic Other nervous system disorders (19 sources) Raised intracranial pressure; Translations: [Benign intracranial hypertension] 08-29-2023 Chronic Other nervous system disorders (20 sources) Benign intracranial hypertension; Translations: [Benign intracranial hypertension] Onset: 4 08-16-2023 Chronic Other nervous system disorders (20 sources) Carpal tunnel syndrome of left wrist; Translations: [Carpal tunnel syndrome, left upper limb] Onset: 3 06-08-2022 Chronic Other nervous system disorders (20 sources) Carpal tunnel syndrome of right wrist; Translations: [Carpal tunnel syndrome, right upper limb] Onset: 3 06-08-2022 Chronic Other nervous system disorders (20 sources) Carpal tunnel syndrome; Translations: [Carpal tunnel syndrome, unspecified upper limb] Onset: 4 07-30-2023 Chronic Other nervous system disorders (20 sources) Bilateral carpal tunnel syndrome; Translations: [Carpal tunnel syndrome, bilateral upper limbs] Onset: 4 07-30-2023 Chronic Other nervous system disorders (16 sources) Impairment of balance; Translations: [Other abnormalities of gait and mobility] Onset: 4 01-22-2024 Episodic Other non-traumatic joint disorders (1 source) Pain in right wrist Episodic Other non-traumatic joint disorders (1 source) Pain in left wrist Episodic Other nutritional; endocrine; and metabolic disorders (6 sources) Body mass index 40+ - severely obese; Translations: [Body mass index (BMI) 40.0-44.9, adult] Onset: 5 05-15-2024 Chronic Other nutritional; endocrine; and metabolic disorders (20 sources) Obesity; Translations: [Obesity, unspecified] Onset: 8 05-04-2023 Chronic Other nutritional; endocrine; and metabolic disorders (6 sources) Severe obesity; Translations: [Class 3 severe obesity due to excess calories with serious comorbidity and body mass index (BMI) of 45.0 to 49.9 in adult ([facility])] 11-20-2023 Chronic Other nutritional; endocrine; and metabolic disorders (2 sources) Insulin resistance; Translations: [Insulin resistance] Onset: 5 05-15-2024 Chronic Other and delivery including normal (11 sources) Encounter for care and examination of lactating mother; Translations: [Encounter for routine follow-up] Onset: 2 Episodic Other upper respiratory disease (1 source) Seasonal allergic rhinitis; Translations: [Other seasonal allergic rhinitis] Onset: 7 Chronic Other upper respiratory disease (1 source) Allergic rhinitis; Translations: [Allergic rhinitis, unspecified] Onset: 6 Chronic Other upper respiratory infections (16 sources) Acute pharyngitis; Translations: [Acute pharyngitis, unspecified] [...] from previous surgery] Episodic Residual codes; unclassified (3 sources) Family history of breast cancer; Translations: [Family history of malignant neoplasm of breast] Onset: 5 05-15-2024 Episodic Residual codes; unclassified (2 sources) Never smoked tobacco; Translations: [Other specified health status] Onset: 5 05-15-2024 Episodic Spondylosis; intervertebral disc disorders; other back problems (17 sources) Neck pain; Translations: [Cervicalgia] Onset: 4 01-22-2024 Episodic Syncope (4 sources) Near syncope; Translations: [Syncope and collapse] Onset: 5 05-15-2024 Episodic Unclassified (20 sources) Encounter for screening for malignant neoplasm of cervix; Translations: [Encounter for screening for Streptococcus B] Onset: 8 Episodic Unclassified (1 source) PERSONAL HISTORY OF COVID-19; Translations: [PERSONAL HISTORY OF COVID-19] Onset: 2 Unclassified (1 source) CONTACT W/AND (SUSP) EXPOS COVID-19; Translations: [CONTACT W/AND (SUSP) EXPOS COVID-19] Onset: 2 Unclassified (1 source) Cold Like Symptoms Onset: 4 Unclassified (1 source) First encounter by subject 05-16-2024 Viral infection (9 sources) Viral infection, unspecified; Translations: [Enteroviral vesicular [...] Test Name Value Interpretation Reference Range Facility ECG 12 [place] 05-16-2024 Sinus rhythm, rate 84. CP [facility] Work Phone: IGP,APTIMA HPV,AGE GDLNon AGE GDLN ACOG TESTING Note . [facility] Comment on above: TESTS RESULT FLAG UN ITS REF RANGE LAB Clinician Provided Cytology Information Source.............Cervix;Endocervix No. of containers..01 ThinPrep Vial Age [place] ANG Mary... FLAG LEGEND: L-Low Normal,H-High Normal,LL-Alert Low,HH-Alert High <-Panic Low,>-Panic High,A-Abnormal,AA-Critical Abnormal Performed at: 01 =[address] [id number] Anaid Hercules MD, HPV APTIMA Negative Negative [facility] Comment on above: This nucleic acid am plification test detects fourteen high- risk HPV types (16,18,31,33,35,39,45,51,52,56,58,59,66,68) without differentiation. Performed at: =[address] [id number] Laundry Assistant: Anaid Hercules MD, Phone: [phone] Performed at: [address] [id number] Laundry Assistant: Anaid Hercules MD, Phone: [phone] IGP, APTIMA HPV, RFX 16/18,45 Note . [facility] Comment on above: TESTS RESULT FLAG UN ITS REF RANGE LAB DIAGNOSIS: 02 NEGATIVE FOR INTRAEPITHELIAL LESION OR MALIGNANCY. Specimen adequacy: 02 Satisfactory for evaluation. Endocervical and/or squamous metaplastic cells (endocervical component) are present. Performed by: 02 Asael Carlos, Air Conditioning Installer Supervisor (ASCP) . 02 Note: Note 02 The Pap smear is a screening test designed to aid in the detection of premalignant and malignant conditions of the uterine cervix. It is not a diagnostic procedure and should not be used as the sole means of detecting cervical cancer. Both false-positive and false-negative reports do occur. Test Methodology: Note 02 This liquid based ThinPrep(R) pap test was screened with the use of an image guided system. HPV Genotype Reflex Note 02 Criteria not met, HPV Genotype not performed. FLAG LEGEND: L-Low Normal,H-High Normal,LL-Alert Low,HH-Alert High <-Panic Low,>-Panic High,A-Abnormal,AA-Critical Abnormal Performed at: [address] [id number] Anaid Hercules MD, BRUSH-SPATULA CERVIX ENDOCERVIX [facility] ALL BASIC METABOLIC PANELon 01-22-2024 Anion gap [Moles/Vol] 13.7 mmol/L NO [facility] Calcium [Mass/Vol] 8.8 mg/dL 8.5 - 10. 1 mg/dL [facility] Chloride [Moles/Vol] 105 mmol/L 98 - 10 7 mmol/L [facility] CO2 [Moles/Vol] 27.2 mmol/L 21.0 - 32.0 mmol/L [facility] Creatinine [Mass/Vol] 0.85 mg/dL 0.55 - 1.02 mg/dL [facility] GFR/1.73 sq M.predicted CKD-EPI (S/P/Bld) [Vol rate/Area] >60 >=60 mL/min/1.73 m 2 [facility] Glucose [Mass/Vol] 81 mg/dL 74 - 106 mg/dL [facility] Potassium [Moles/Vol] 3.9 mmol/L 3.5 - 5.1 mmol/L [facility] Sodium [Moles/Vol] 142 mmol/L 136 - 145 mmol/L [facility] TBH EGFR-NON AF NIGERIEN >60 >=60 mL/min/1.73 m 2 [facility] Urea nitrogen [Mass/Vol] 9 mg/dL 7.0 - 18.0 mg/dL [facility] Urea nitrogen/Creatinine [Mass ratio] 10.6 mg/mg [facility] MR venography head wo conon 11-09-2023 MR venography head wo con [facility] [place] [address] MRI Report Signed Patient: Rebecca White MR#: [id number] 38 : 1990 Acct:[id number] Age/Sex: 33 / F ADM Date: 11/09/23 Loc: MR Room: Type: [facility] Attending Dr: Naya JUÁREZ Copies to: [...] Manjeet Sargent M.D.11/09/2023 9:34 AM Dictation Location: [place] [address] Transcribed By: [facility] 11/09/2334 Dictated By: Manjeet Sargent II, MD 11/09/23917 Signed By: 11/09/23933 Normal [facility] CMP (CMP) (FOR REMOTE FH C USE)on 10-23-2023 Albumin [Mass/Vol] 3.1 g/dL Low 3.4 - 5.0 g/dL [facility] ALBUMIN GLOBULIN RATIO 0.8 NO [facility] ALP [Catalytic activity/Vol] 66 U/L 46 - 116 U/L [facility] ALT [Catalytic activity/Vol] 38 U/L 14 - 59 U/L [facility] Anion gap [Moles/Vol] 10.5 mmol/L NO [facility] AST [Catalytic activity/Vol] 25 U/L 15 - 37 U/L [facility] Bilirubin [Mass/Vol] 0.4 mg/dL 0.2 - 1 .0 mg[facility] [Mass/Vol] 8.7 mg/dL 8.5 - 10. 1 mg/dL [facility] Chloride [Moles/Vol] 100 mmol/L 98 - 10 7 mmol/L [facility] CO2 [Moles/Vol] 30.3 mmol/L 21.0 - 32.0 mmol/L [facility] Creatinine [Mass/Vol] 0.76 mg/dL 0.55 - 1.02 mg/dL [facility] GFR/1.73 sq M.predicted CKD-EPI (S/P/Bld) [Vol rate/Area] >60 60 - PINF [facility] Globulin (S) [Mass/Vol] 4.1 g/dL N [facility] Glucose [Mass/Vol] 78 mg/dL 74 - 106 mg/dL [facility] Interpretation and review of laboratory results Abnormal [facility] Potassium [Moles/Vol] 3.8 mmol/L 3.5 - 5.1 mmol/L [facility] Protein [Mass/Vol] 7.2 g/dL 6.4 - 8.2 g/dL [facility] Sodium [Moles/Vol] 137 mmol/L 136 - 145 mmol/L [facility] TBH EGFR-NON AF NIGERIEN >60 60 - PINF [facility] Urea nitrogen [Mass/Vol] 12.0 mg/dL 7.0 - 18.0 mg/dL [facility] Urea nitrogen/Creatinine [Mass ratio] 15.8 mg/mg [facility] Aerobic Cultureon 09-25-2023 Aerobic Culture Comment Aerobic/anaerobic No Growth 2 Days Comment Aerobic/anaerobic No Anaerobes Isolated 3 Days Comment Aerobic/anaerobic Gram Stain Result No Bacteria Seen No White Blood Cells Seen No Red Blood Cells Seen PERFORMED BY: [facility] [address] [place] [address] PATHOLOGIST FLOWER CUTTER KELLY WIGGINS M.D. Normal [facility] Comment on above: Performed By: #### C SF TP, CSF PCR PANEL, CSFCCDIFF #2, GS, CSF GLU, AERC ####[facility] [id number] [address] Aerobic cultureOrdered By: Ana Butler on 09-25-2023 Bacteria identified Aer cx Nom (Unsp spec) Aerobic culture [facility] Anaerobic cultureOrdered By: Naya Butler on 09-25-2023 Bacteria identified Anaer cx Nom (Unsp spec) Anaerobic culture [facility] CSF PCR Panelon 09-25-2023 CSF PCR Panel Comment Aerobic/anaerobic Cytomegalovirus Not detected Cryptococcus neoformans or gattii 9002 Not detected Escherichia coli K1 Not detected Enterovirus Not detected Haemophilus influenzae (reported as H flu) Not detected Human herpesvirus 6 Not detected Herpes simplex virus 1 Not detected Herpes simplex virus 2 DNA [Presence] in Cerebral spinal fluid by NMIA with non-probe detection Not detected Listeria monocytogenes (reported as listeriosis) Not detected Neisseria meningitidis - reported as meningococcal disease Not detected Human parechovirus Not detected Streptococcus pneumoniae - reported at ISP Not detected Group B Strep (Streptococcus agalactiae) Not detected Varicella zoster virus Not detected PERFORMED BY: [place] [id number] PATHOLOGIST FLOWER CUTTER KELLY WIGGINS M.D. Normal [facility] Comment on above: Performed By: #### C SF TP, CSF PCR PANEL, CSFCCDIFF #2, GS, CSF GLU, AERC #### [address] Cell Count Differential,CSFo n 09-25-2023 Appearance, CSF Clear Normal Clear [facility] Comment on above: Order Comment: Comme nt tube 1 Performed By: #### C SFCCDIFF #### [address] Color, CSF Colorless Normal Colorless [facility] Comment on above: Order Comment: Comme nt tube 1 Performed By: #### C SFCCDIFF #### [address] CSF Supernatant Color Colorless Normal Colorless [facility] Comment on above: Order Comment: Comme nt tube 1 Performed By: #### C SFCCDIFF #### [address] CSF Volume, Total 33.5 mL Normal [facility] Comment on above: Order Comment: Comme nt tube 1 Performed By: #### C SFCCDIFF #### [address] Lymphocytes, CSF 6 Normal [facility] Comment on above: Order Comment: Comme nt tube 1 Result Comment: The reference interval and other method performance specifications have not been established for this body fluid. The test result must be integrated into the clinical context for interpretation. Performed By: #### C SFCCDIFF #### [address] Monocytes, CSF 2 Normal [facility] Comment on above: Order Comment: Comme nt tube 1 Result Comment: The reference interval and other method performance specifications have not been established for this body fluid. The test result must be integrated into the clinical context for interpretation. Performed By: #### C SFCCDIFF #### [address] RBC, CSF 5 /uL Normal [facility] Comment on above: Order Comment: Comme nt tube 1 Result Comment: The reference interval and other method performance specifications have not been established for this body fluid. The test result must be integrated into the clinical context for interpretation. Performed By: #### C SFCCDIFF #### [address] TNC, CSF 1 /uL Normal 0-5 [facility] Comment on above: Order Comment: Comme nt tube 1 Performed By: #### C SFCCDIFF #### [address] Total Count, CSF 8 Normal [facility] Comment on above: Order Comment: Comme nt tube 1 Performed By: #### C SFCCDIFF #### [address] Tube Number Tested, CSF Tube Number: 1 Normal [facility] Comment on above: Order Comment: Comme nt tube 1 Result Comment: PERF ORMED BY: [place] [id number] PATHOLOGIST FLOWER CUTTER KELLY WIGGINS M.D. Performed By: #### C SFCCDIFF #### [address] Cell Count Differential,CSF #2on 09-25-2023 Appearance, CSF Clear Normal Clear [facility] Comment on above: Performed By: #### C SF TP, CSF PCR PANEL, CSFCCDIFF #2, GS, CSF GLU, AERC ####[facility] [id number] [address] Color, CSF Colorless Normal Colorless [facility] Comment on above: Performed By: #### C SF TP, CSF PCR PANEL, CSFCCDIFF #2, GS, CSF GLU, AERC ####[address] CSF Supernatant Color Colorless Normal Colorless [facility] Comment on above: Performed By: #### C SF TP, CSF PCR PANEL, CSFCCDIFF #2, GS, CSF GLU, AERC ####[address] CSF Volume, Total 33.5 mL Normal [facility] Comment on above: Performed By: #### C SF TP, CSF PCR PANEL, CSFCCDIFF #2, GS, CSF GLU, AERC ####[address] Lymphocytes, CSF 3 Normal [facility] Comment on above: Result Comment: The reference interval and other method performance specifications have not been established for this body fluid. The test result must be integrated into the clinical context for interpretation. Performed By: #### C SF TP, CSF PCR PANEL, CSFCCDIFF #2, GS, CSF GLU, AERC ####[address] RBC, CSF 1 /uL Normal [facility] Comment on above: Result Comment: The reference interval and other method performance specifications have not been established for this body fluid. The test result must be integrated into the clinical context for interpretation. Performed By: #### C SF TP, CSF PCR PANEL, CSFCCDIFF #2, GS, CSF GLU, AERC ####[address] TNC, CSF 2 /uL Normal 0-5 [facility] Comment on above: Performed By: #### C SF TP, CSF PCR PANEL, CSFCCDIFF #2, GS, CSF GLU, AERC ####[address] Total Count, CSF 3 Normal [facility] Comment on above: Performed By: #### C SF TP, CSF PCR PANEL, CSFCCDIFF #2, GS, CSF GLU, AERC ####[facility] [id number] [place] [id number] [facility] Tube Number Tested, CSF Tube Number: 4 Normal [facility] Comment on above: Result Comment: PERF ORMED BY: [facility] [address] [place] [address] PATHOLOGIST FLOWER CUTTER KELLY WIGGINS M.D. Performed By: #### C SF TP, CSF PCR PANEL, CSFCCDIFF #2, GS, CSF GLU, AERC ####[facility] [id number] [place] [id number] [facility] Cerebrospinal fluid appearan ce descriptionOrdered By: Naya Butler on 09-25-2023 Appearance (CSF) Clear Clear [facility] Cerebrospinal fluid color id entificationOrdered By: Naya Butler on 09-25-2023 Color (CSF) Color CSF Colorless [facility] Cerebrospinal fluid post-lul trifugation appearance determinationOrdered By: Naya Butler on 09-25-2023 Appearance (Spun CSF) Colorless Colorless [facility] Appearance (Spun CSF) Cerebrospinal flui d post-centrifugation appearance determination Colorless [facility] Cerebrospinal fluid sample t ube volume measurementOrdered By: Naya Butler on 09-25-2023 Specimen volume (CSF) 33.5 mL [facility] Specimen volume (CSF) Cerebrospinal flui d sample tube volume measurement [facility] Color CSFOrdered By: Naya pink on 09-25-2023 Color (CSF) Colorless Colorless [facility] Determination of appearance of cerebrospinal fluidOrdered By: Naya Butler on 09-25-2023 Appearance (CSF) Cerebrospinal fluid appearance description Clear [facility] Eosinophil count CSFOrdered By: Naya Butler on 09-25-2023 CSF Eosinophils N/A [facility] Glucose [Mass/volume] in Cer ebral spinal fluidOrdered By: Naya Butler on 09-25-2023 Glucose (CSF) [Mass/Vol] 60 mg/dL 40-70 [facility] Glucose (CSF) [Mass/Vol] Glucose [Mass/volume] in Cerebral spinal fluid 40-70 [facility] Glucose, CSF #2on 09-25-2023 Glucose, CSF #2 60 mg/dL Normal 40-70 [facility] Comment on above: Performed By: #### C SF GLU #2, CSF TP #2 #### [place] [address] [place] Glucose, Spinal Fluidon 09-06 Glucose, Spinal Fluid 62 mg/dL Normal 40-70 [facility] Comment on above: Performed By: #### C SF TP, CSF PCR PANEL, CSFCCDIFF #2, GS, CSF GLU, AERC #### [place] [address] [place] Gram Stainon 09-25-2023 Microscopic observation Gram stain Nom (Unsp spec) Comment Aerobic/anaerobic Gram Stain Result No Bacteria Seen No White Blood Cells Seen No Red Blood Cells Seen PERFORMED BY: [place] [id number] PATHOLOGIST FLOWER CUTTER KELLY WIGGINS M.D. Normal [facility] Comment on above: Performed By: #### C SF TP, CSF PCR PANEL, CSFCCDIFF #2, GS, CSF GLU, AERC #### [address] Gram stain for investigation of transfusion reactionOrdered By: Naya Butler on 09-25-2023 Microscopic observation Gram stain Nom (Unsp spec) No Anaerobes Isolated 2 Days [facility] Microscopic observation Gram stain Nom (Unsp spec) No Anaerobes Isolated 3 Days [facility] Gram stain microscopyOrdered By: Naya Butler on 09-25-2023 Microscopic observation Gram stain Nom (Unsp spec) Gram stain microscopy [facility] IR guided lumbar puncture LP on 09-25-2023 IR guided lumbar puncture LP [facility] [place] [address] [place] [address] Interventional Radiology Rpt Signed Patient: Rebecca White MR#: [id number] 38 : 1990 Acct:[id number] Age/Sex: 33 / F ADM Date: 09/25/23 Loc: XD Room: Type: [facility] Attending Dr: Naya JUÁREZ Copies to: FRANCK Masterson Ordering Provider: Naya Butler APRN-BOTTOMING ROOM SUPERVISOR-C Date of Service: 09/25/23 IR/IR guided lumbar [...] Manjeet Sargent M.D.09/25/2023 10:34 AM Dictation Location: [place] [address] Transcribed By: [facility] 09/25/23 103 Dictated By: Manjeet Sargent II, MD 09/25/23 103 Signed By: 09/25/23 103 Normal [facility] [place] 09-25-2023 L Specimen: [id number] Received: 09/25/23 Status: [facility] Num: [id number] Spec Type: Cytology Subm Dr: Manjeet Sargent II, MD Tissues: A CSF (CSF) Procedures: Cyto Prepstain, DIFF QWIK, PAPSTN Age/ Patient Sex Location Account Attending Physician Rebecca White N 33/F XD [id number] Naya Butler, BRANCH ACCOUNT EXECUTIVE-BOTTOMING ROOM SUPERVISOR-C SPEC NUM: [id number] RECD: 09/25/23 STATUS: L[facility]ENZO HURD NUM: [id number] ISABELLA: 09/25/23- SUBM DR: Manjeet Sargent II, MD ENTERED: 09/25/23 [facility] DR: Alyssa Butterfield MD SPEC TYPE: Cytology DEPT: CN ENTERED BY: [id number] RECV BY: [id number] ORDERED: Cyto Prepstain, DIFF QWIK, PAPSTN ORDERED: [...] [id number] Received: 09/25/23 Status: L[facility]ENZO [facility] Num: [id number] Spec Type: Cytology Subm Dr: Manjeet Sargent II, MD Tissues: A CSF (CSF) Procedures: Cyto Prepstain, DIFF QWIK, PAPSTN Patient: Rebecca White Vicki [id number] (Continued) Specimen: [id number] Received: 09/25/23 (Continued) Signed (signature on file) Ashley Coulter MD 09/27/23 1158 Specimen: [id number] Received: 09/25/23 Status: LORENZO [facility] Num: [id number] Spec Type: Cytology Subm Dr: Manjeet Sargent II, MD Tissues: A CSF (CSF) Procedures: Cyto Prepstain, DIFF QWIK, PAPSTN Patient: Rebecca White [id number] (Continued) Specimen: [id number] Received: 09/25/23 (Continued) CPT Codes 65803 Specimen: [id number] Received: 09/25/23 Status: LORENZO [facility] Num: [id number] Spec Type: Cytology Subm Dr: Manjeet Sargent II, MD Tissues: A CSF (CSF) Procedures: Cyto Prepstain, DIFF CHANI SEARS Patient: Rebecca White [id number] (Continued) Signed (signature on file) Ashley Coulter MD 09/27/23 1158 Normal [facility] Lymphocyte count CSFOrdered By: Naya Butler on 09-25-2023 CSF Lymphocytes 3 [facility] Comment on above: The reference interv al and other method performance specifications have not been established for this body fluid. The test result must be integrated into the clinical context for interpretation. Manual cerebrospinal fluid e rythrocytes count (number/volume)Ordered By: Naya Butler on 09-25-2023 RBC Manual cnt (CSF) [#/Vol] 1 /uL [facility] Comment on above: The reference interv al and other method performance specifications have not been established for this body fluid. The test result must be integrated into the clinical context for interpretation. RBC Manual cnt (CSF) [#/Vol] Manual cerebrospinal fluid erythrocytes count (number/volume) [facility] Comment on above: The reference interv al [...] - Cerebral spinal fluid by NIMA wi [facility] Meningitis+Encephalitis pathogens DNA and RNA panel NIMA+non-probe (CSF) [facility] Monocyte count CSFOrdered By : Naya Butler on 09-25-2023 CSF Monocytes N/A [facility] Neutrophil count CSFOrdered By: Naya Butler on 09-25-2023 CSF Neutrophils N/A [facility] No Panel InformationOrdered By: Naya Butler on 09-25-2023 CSF Total Cells Counted 3 [facility] CSF Tube Number Tube number: [facility] Nucleated cells [#/volume] i n Cerebral spinal fluid by Manual countOrdered By: Naya Butler on 09-25-2023 Nucleated cells Manual cnt (CSF) [#/Vol] 0.002 10*3/uL 0-5 [facility] Nucleated cells Manual cnt (CSF) [#/Vol] Nucleated cells [#/volume] in Cerebral spinal fluid by Manual count 0-5 [facility] Protein [Mass/volume] in Cer ebral spinal fluidOrdered By: Naya Butler on 09-25-2023 Protein (CSF) [Mass/Vol] 23 mg/dL [facility] Protein (CSF) [Mass/Vol] Protein [Mass/volume] in Cerebral spinal fluid [facility] Total Protein, CSF #2on 09-06 0 Total Protein, CSF #2 23 mg/dL Normal [facility] Comment on above: Result Comment: PERF ORMED BY: [place] [id number] PATHOLOGIST FLOWER CUTTER KELLY WIGGINS M.D. Performed By: #### C SF GLU #2, CSF TP #2 #### [address] Total Protein, Spinal Fluido n 09-25-2023 Total Protein, Spinal Fluid 26 mg/dL Normal [facility] Comment on above: Result Comment: PERF ORMED BY: [place] [id number] PATHOLOGIST FLOWER CUTTER KELLY WIGGINS M.D. Performed By: #### C SF TP, CSF PCR PANEL, CSFCCDIFF #2, GS, CSF GLU, AERC #### [address] MR head/brain wo/w conon MR head/brain wo/w con [facility] [place] [address] MRI Report Signed Patient: Rebecca White MR#: [id number] 38 : 1990 Acct:[id number] Age/Sex: 33 / F ADM Date: 08/15/23 Loc: Room: Type: [facility] Attending Dr: Bonnie Johnson DO Copies to: [...] Manjeet Sargent M.D.08/15/2023 2:50 PM Dictation Location: [place] [address] Transcribed By: [facility] 08/15/23 1450 Dictated By: Manjeet Sargent II, MD 08/15/23 2981 Signed By: 08/15/23 1452 Normal [facility] SARS/FLU A+B[facility] SARS/FLU A+B/RSV by NAAT/Molecular FLU A [...] operators who are performing tests using either [employer] or [employer] systems and is limited to laboratories that [...] repeat. Fact Sheet for Healthcare Providers: https://www.fda.gov/medi a/486217/download Fact Sheet for Patients: https://www.fda.gov/medi a/531292/download Normal [facility] Comment on above: Performed By: #### C OVFLR #### [facility] ([id number]) [address] [place] [address] Cytology Cervical or vaginal smear or scraping studyOrdered By: Chelita Mayen on 03-05-2023 [facility] PAP ACOG PANEL 2: 30 to 65on 03-03-2022 . . Normal [facility] Comment on above: Result Comment: Perf ormed at: WB Performed By: #### [id number] #### [facility] [address] [place] [address] [address] Roc Coulter Age Gdln ACOG Testing 30-65 [facility] Comment on above: Performed By: #### 4 [id number] #### [facility] [address] [place] [address] Dr. Roc Coulter DIAGNOSIS: Comment Normal [facility] Comment on above: Result Comment: NEGA TIVE FOR INTRAEPITHELIAL LESION OR MALIGNANCY. Performed at: WB Performed By: #### 4 [id number] #### [facility] [address] [place] [address] Dr. Roc Coulter HPV Aptima Negative Normal Negative [facility] Comment on above: Result Comment: This nucleic acid amplification test detects fourteen high-risk HPV types (16,18,31,33,35,39,45,51,52,56,58,59,66,68) without differentiation. Performed at: =G Performed By: #### [id number] #### [facility] [address] [place] [address] Dr. Roc Coulter HPV Genotype Reflex Comment Normal [facility] Comment on above: Result Comment: Crit eria not met, HPV Genotype not performed. Performed at: WB Performed By: #### 4 [id number] #### [facility] [address] [place] [address] Dr. Roc Coulter Methodology: Comment Normal [facility] Comment on above: Result Comment: This liquid based ThinPrep(R) pap test was screened with the use of an image guided system. Performed at: WB Performed By: #### [id number] #### [facility] [address] [place] [address] Dr. Roc Coulter Note: Comment Normal [facility] Comment on above: Result Comment: The Pap smear is a screening test designed to aid in the detection of premalignant and malignant conditions of the uterine cervix. It is not a diagnostic procedure and should not be used as the sole means of detecting cervical cancer. Both false-positive and false-negative reports do occur. . Performed at: WB Performed By: #### [id number] #### [facility] [address] [place] [address] Dr. Roc Coulter Performed by: Comment Normal [facility] Comment on above: Result Comment: Lina Quach, Air Conditioning Installer Supervisor (ASCP) Performed at: WB Performed By: #### [id number] #### [facility] [address] [place] [address] Dr. Roc Coulter Specimen adequacy: Comment Normal [facility] Comment on above: Result Comment: Sati sfactory for evaluation. Endocervical and/or squamous metaplastic cells (endocervical component) are present. Performed at: WB Performed By: #### [id number] #### [facility] [address] [place] [address] Dr. Roc Coulter CBC AUTO DIFFon 08-24-2021 BASO # 0.0 103/ul Normal 0.0-0.1 [facility] Comment on above: Performed By: #### C BC #### [facility] [address] [place] [address] Dr. Roc Coulter Basophils/100 WBC (Bld) 0.3 % Normal 0.2-2.0 [facility] Comment on above: Performed By: #### C BC #### [facility] [address] [place] [address] Dr. Roc Coulter EO # 0.1 103/ul Normal 0.0-0.7 [facility] Comment on above: Performed By: #### C BC #### [facility] [address] [place] [address] Dr. Roc Coulter Eosinophils/100 WBC (Bld) 1.0 % Normal 0.9-7.0 [facility] Comment on above: Performed By: #### C BC #### [facility] [address] [place] [address] Dr. Roc Coulter Erythrocyte distribution width (RBC) [Ratio] 16.6 % Critically high 11.0-15.0 [facility] Comment on above: Performed By: #### C BC #### [facility] [address] [place] [address] Dr. Roc Coulter Hematocrit (Bld) [Volume fraction] 30.2 % Critically low 36.0-48.0 [facility] Comment on above: Performed By: #### C BC #### [facility] [address] [place] [address] Dr. Roc Coulter Hemoglobin (Bld) [Mass/Vol] 9.6 g/dL Critically low 12.0-16.0 [facility] Comment on above: Performed By: #### C BC #### [facility] [address] [place] [address] Dr. Roc Coulter IG # 0.10 10e3/ul Critically high 0.00-0.03 [facility] Comment on above: Performed By: #### C BC #### [facility] [address] [place] [address] Dr. Rco Coulter IG % 0.7 % Critically high 0.0-0.5 [facility] Comment on above: Performed By: #### C BC #### [facility] [address] [place] [address] Dr. Roc Coulter LYMPH # 2.5 103/ul Normal 1.2-3.8 [facility] Comment on above: Performed By: #### C BC #### [facility] [address] [place] [address] Dr. Roc Coulter Lymphocytes/100 WBC (Bld) 18.6 % Critically low 20.5-60.0 [facility] Comment on above: Performed By: #### C BC #### [facility] [address] [place] [address] Dr. Roc Coulter MANUAL DIFF REQ NO Normal [facility] Comment on above: Performed By: #### C BC #### [facility] [address] [place] [address] Dr. Roc Coulter MCH (RBC) [Entitic mass] 27.9 pg Normal 26.7-34.0 [facility] Comment on above: Performed By: #### C BC #### [facility] [address] [place] [address] Dr. Roc Coulter MCHC (RBC) [Mass/Vol] 31.8 g/dL Normal 29.9-35.2 [facility] Comment on above: Performed By: #### C BC #### [facility] [address] [place] [address] Dr. Roc Coulter MCV (RBC) [Entitic vol] 87.8 fL Normal 81.0-99.0 [facility] Comment on above: Performed By: #### C BC #### [facility] [address] [place] [address] Dr. Roc Coulter MONO # 0.9 103/ul Critically high 0.3-0.8 [facility] Comment on above: Performed By: #### C BC #### [facility] [address] [place] [address] Dr. Roc Coulter Monocytes/100 WBC (Bld) 6.7 % Normal 1.7-12.0 [facility] Comment on above: Performed By: #### C BC #### [facility] [address] [place] [address] Dr. Roc Coulter NEUT # 9.8 103/ul Critically high 1.4-6.5 [facility] Comment on above: Performed By: #### C BC #### [facility] [address] [place] [address] Dr. Roc Coulter Neutrophils/100 WBC (Bld) 72.7 % Normal 43.0-75.0 [facility] Comment on above: Performed By: #### C BC #### [facility] [address] [place] [address] Dr. Roc Coulter Platelet mean volume (Bld) [Entitic vol] 10.4 fL Normal 9.5-13.5 [facility] Comment on above: Performed By: #### C BC #### [facility] [address] [place] [address] Dr. Roc Coulter PLT 228 103/ul Normal 150-450 [facility] Comment on above: Performed By: #### C BC #### [facility] [address] [place] [address] Dr. Roc Coulter RBC 3.44 106/ul Critically low 4.20-5.40 [facility] Comment on above: Performed By: #### C BC #### [facility] [address] [place] [address] Dr. Roc Coulter WBC 13.4 103/ul Critically high 4.0-11.0 [facility] Comment on above: Performed By: #### C BC #### [facility] [address] [place] [address] [address] Roc Coulter CBC AUTO DIFFon 08-21-2021 BASO # 0.0 103/ul Normal 0.0-0.1 [facility] Comment on above: Performed By: #### C BC ####[facility] [id number] [place] [address]Dr. Roc Coulter Basophils/100 WBC (Bld) 0.5 % Normal 0.2-2.0 [facility] Comment on above: Performed By: #### C BC ####[facility] [facility] [address] [place] [address]Dr. Roc Coulter EO # 0.1 103/ul Normal 0.0-0.7 [facility] Comment on above: Performed By: #### C BC ####[facility] [address] [place] [address]Dr. Roc Coulter Eosinophils/100 WBC (Bld) 1.1 % Normal 0.9-7.0 [facility] Comment on above: Performed By: #### C BC ####[facility] [address] [place], [place] [address]Dr. Roc Coulter Erythrocyte distribution width (RBC) [Ratio] 16.1 % Critically high 11.0-15.0 [facility] Comment on above: Performed By: #### C BC ####[facility] [address] [place] [address]Dr. Roc Coulter Hematocrit (Bld) [Volume fraction] 36.0 % Normal 36.0-48.0 [facility] Comment on above: Performed By: #### C BC ####[facility] [address] [place], [place] [address]Dr. Roc Coulter Hemoglobin (Bld) [Mass/Vol] 11.7 g/dL Critically low 12.0-16.0 [facility] Comment on above: Performed By: #### C BC ####[facility] [address] [place], [place] [address]Dr. Roc Coulter IG # 0.08 10e3/ul Critically high 0.00-0.03 [facility] Comment on above: Performed By: #### C BC ####[facility] [address] [place] [address]DrWendy Coulter IG % 0.9 % Critically high 0.0-0.5 [facility] Comment on above: Performed By: #### C BC ####[facility] [address] [place] [address]DrWendy Coulter LYMPH # 1.8 103/ul Normal 1.2-3.8 [facility] Comment on above: Performed By: #### C BC ####[facility] [address] [place] [address]DrWendy Coulter Lymphocytes/100 WBC (Bld) 20.8 % Normal 20.5-60.0 [facility] Comment on above: Performed By: #### C BC ####[facility] [address] [place] [address]DrWendy Coulter MANUAL DIFF REQ NO Normal [facility] Comment on above: Performed By: #### C BC ####[facility] [address] [place] [address]DrWendy Coulter MCH (RBC) [Entitic mass] 28.0 pg Normal 26.7-34.0 [facility] Comment on above: Performed By: #### C BC ####[facility] [address] [place] [address]DrWendy Coulter MCHC (RBC) [Mass/Vol] 32.5 g/dL Normal 29.9-35.2 [facility] Comment on above: Performed By: #### C BC ####[facility] [address] [place] [address]DrWendy Coulter MCV (RBC) [Entitic vol] 86.1 fL Normal 81.0-99.0 [facility] Comment on above: Performed By: #### C BC ####[facility] [address] [place] [address]DrWendy Coulter MONO # 0.8 103/ul Normal 0.3-0.8 [facility] Comment on above: Performed By: #### C BC ####[facility] [address] [place] [address]Dr. Roc Coulter Monocytes/100 WBC (Bld) 9.6 % Normal 1.7-12.0 [facility] Comment on above: Performed By: #### C BC ####[facility] [address] [place] [address]Dr. Roc Coulter NEUT # 5.9 103/ul Normal 1.4-6.5 [facility] Comment on above: Performed By: #### C BC ####[facility] [address] [place], [place] [address]Dr. Roc Coulter Neutrophils/100 WBC (Bld) 67.1 % Normal 43.0-75.0 [facility] Comment on above: Performed By: #### C BC ####[facility] [address] [place], [place] [address]Dr. Roc Coulter Platelet mean volume (Bld) [Entitic vol] 10.6 fL Normal 9.5-13.5 [facility] Comment on above: Performed By: #### C BC ####[facility] [address] [place] [address]Dr. Roc Coulter PLT 235 103/ul Normal 150-450 [facility] Comment on above: Performed By: #### C BC ####[facility] [address] [place] [address]Dr. Roc Coulter RBC 4.18 106/ul Critically low 4.20-5.40 [facility] Comment on above: Performed By: #### C BC ####[facility] [address] [place] [address]Dr. Roc Coulter WBC 8.8 103/ul Normal 4.0-11.0 [facility] Comment on above: Performed By: #### C BC ####[facility] [address] [place], [place] [address]DrWendy Roc Coulter Covid-19 PCR (CVDTBH)on 08-05 SARS-CoV-2 (COVID-19) RNA NIMA+probe Ql (Unsp spec) Not detected Normal NOT DETECTED [facility] Comment on above: Result Comment: When [...] for this test is supported by the [place] of Health and Human Service's declaration that [...] used). Performed By: #### C VDTBH #### [facility] [address] [place] [address] Dr. Roc Coulter DRUG SCREEN RAPID (URINE)on 08-21-2021 AMP Negative Normal NEGATIVE [facility] Comment on above: Performed By: #### D RUGRPD #### [facility] [address] [place] [address] Dr. Roc Coulter BAR Negative Normal NEGATIVE [facility] Comment on above: Performed By: #### D RUGRPD #### [facility] [address] [place] [address] Dr. Roc Coulter BUP Negative Normal NEGATIVE [facility] Comment on above: Performed By: #### D RUGRPD #### [facility] [address] [place] [address] Dr. Roc Coulter BZO Negative Normal NEGATIVE [facility] Comment on above: Performed By: #### D RUGRPD #### [facility] [address] [place] [address] Dr. Roc Coulter SHAYY Negative Normal NEGATIVE [facility] Comment on above: Performed By: #### D RUGRPD #### [facility] [address] [place] [address] Dr. Roc Coulter CUT-OFFS SEE BELOW Normal [facility] Comment on above: Result Comment: AMP [...] ng/mL Performed By: #### D RUGRPD #### [facility] [address] [place] [address] Dr. Roc Coulter DRUG CUT HEADER DRUG CLASS TEST SYST EM CUT-OFF CONCENTRATIONS ARE FOLLOWS: Normal [facility] Comment on above: Performed By: #### D RUGRPD #### [facility] [address] [place] [address] Dr. Roc Coulter mAMP Negative Normal NEGATIVE [facility] Comment on above: Performed By: #### D RUGRPD #### [facility] [address] [place] [address] Dr. Roc Coulter MTD Negative Normal NEGATIVE [facility] Comment on above: Performed By: #### D RUGRPD #### [facility] [address] [place] [address] Dr. Roc Coulter OPI Negative Normal NEGATIVE [facility] Comment on above: Performed By: #### D RUGRPD #### [facility] [address] [place] [address] Dr. Roc Coulter OXY Negative Normal NEGATIVE [facility] Comment on above: Performed By: #### D RUGRPD #### [facility] [address] [place] [address] Dr. Roc Coulter PCP Negative Normal NEGATIVE [facility] Comment on above: Performed By: #### D RUGRPD #### [facility] [address] [address] [address] Roc Coulter PPX Negative Normal NEGATIVE [facility] Comment on above: Performed By: #### D RUGRPD #### [facility] [address] [place] [address] [address] Roc Coulter TCA Negative Normal NEGATIVE [facility] Comment on above: Performed By: #### D RUGRPD #### [facility] [address] [place] [address] [address] Roc Coulter THC Negative Normal NEGATIVE [facility] Comment on above: Performed By: #### D RUGRPD #### [facility] [address] [address] [address] Roc Coulter TYPE AND SCREENon 08-21-2021 TYPE AND SCREEN Negative Normal [facility] Comment on above: Performed By: #### T NS ####[facility] [address] [place] [address]Dr. Roc Coulter US PREG BIOPHY W NON [...] biophysical profile score: 8.0 Electronically authenticated by: KULIWNDER VENEGAS Date: 2021-08-19 16:43 Normal [facility] US PREG GROWTHon 08-01-2021 US PREG [...] KULWINDER VENEGAS Date: 2021-08-01 07:24 Normal [facility] GROUP B STREP CULTUREon 07-07 S. agalactiae Ag Ql (Unsp spec) Culture Observations: NEGATIVE FOR GROUP B STREPTOCOCCUS. Normal [facility] Comment on above: Performed By: #### G BSCX ####[facility] [address] [place], [place] [address]Pc. Roc Coulter US PREG GROWTHon 06-09-2021 US PREG [...] KULWINDER VENEGAS Date: 2021-06-09 16:45 Normal [facility] US PREG INCOMPLETE ANATOMYon 06-09-2021 US PREG INCOMPLETE ANATOMY EXAMINATION: US PREG INCOMPLETE ANATOMY HISTORY: screening COMPARISON: 05/06/2021 FINDINGS: Normal visualized anatomy: RVOT, LVOT, kidneys, spine, orbits Amniotic fluid index: 19.1 cm, normal Heart rate: 153 bpm IMPRESSION: Normal observed anatomy Electronically authenticated by: KULWINDER VENEGAS Date: 2021-06-09 16:46 Normal [facility] GTT 3 HR PREGon 05-28-2021 Glucose [Mass/Vol] 83 mg/dL Normal 74-106 [facility] Comment on above: Performed By: #### G TT3P #### [facility] [address] [place] [address] Dr. Roc Coulter Glucose [Mass/Vol] 176 mg/dL Normal [facility] Comment on above: Performed By: #### G TT3P #### [facility] [address] [place] [address] Dr. Roc Coulter Glucose [Mass/Vol] 125 mg/dL Normal [facility] Comment on above: Performed By: #### G TT3P #### [facility] [address] [place] [address] Dr. Roc Coulter Glucose [Mass/Vol] 97 mg/dL Normal [facility] Comment on above: Performed By: #### G TT3P #### [facility] [address] [place] [address] Dr. Roc Coulter GLUCOSE - 1HRon 05-06-2021 Glucose [Mass/Vol] 173 mg/dL Critically high 74-106 [facility] Comment on above: Performed By: #### G LU1HR #### [facility] [address] [place] [address] Dr. Roc Coulter HEMOGRAM AND PLATELon 2021 Hematocrit (Bld) [Volume fraction] 34.5 % Critically low 36.0-48.0 [facility] Comment on above: Performed By: #### H H #### [facility] [address] [address] [address] Roc Coutler Hemoglobin (Bld) [Mass/Vol] 10.8 g/dL Critically low 12.0-16.0 [facility] Comment on above: Performed By: #### H H #### [facility] [address] [place] [address] Dr. Roc Coulter MCH (RBC) [Entitic mass] 27.9 pg Normal 26.7-34.0 [facility] Comment on above: Performed By: #### H H #### [facility] [address] [place] [address] Dr. Roc Coulter MCHC (RBC) [Mass/Vol] 31.3 g/dL Normal 29.9-35.2 [facility] Comment on above: Performed By: #### H H #### [facility] [address] [place] [address] Dr. Roc Coulter MCV (RBC) [Entitic vol] 89.1 fL Normal 81.0-99.0 [facility] Comment on above: Performed By: #### H H #### [facility] [address] [place] [address] Dr. Roc Coulter PLT 298 103/ul Normal 150-450 [facility] Comment on above: Performed By: #### H H #### [facility] [address] [place] [address] Dr. Roc Coulter RBC 3.87 106/ul Critically low 4.20-5.40 [facility] Comment on above: Performed By: #### H H #### [facility] [address] [place] [address] Dr. Roc Coulter WBC 8.1 103/ul Normal 4.0-11.0 [facility] Comment on above: Performed By: #### H H #### [facility] [address] [place] [address] Dr. Roc Coulter US PREG ANATOMY SINGLEon [...] by: KULWINDER VENEGAS Date: 2021-05-06 16:06 Normal [facility] Progesteroneon 10-29-2020 Progesterone 9.3 ng/mL Normal [facility] Comment on above: Result Comment: Mens trual Cycle Progesterone Reference Ranges: Follicular:<1.0 ng/mL Ovulation:<12.1 ng/mL Luteal:1.8 to 23.9 ng/mL Progesterone Reference Ranges vary by gestational period: First Trimester:11.0 to 44.3 ng/mL Second trimester: 25.4 to 83.3 ng/mL Third trimester: 58.7 to 214 ng/mL Post menopausal Progesterone:<0.5 ng/mL Reference: 1. Progesterone (Progesterone III) [package insert V 1.0 [place]]. [facility], [place], [place]. November 2014. Performed By: #### P ELIZABETH #### [facility] [address] [place], [place] [address] OBSOLETEon 10-03-2020 OBSOLETE Refill (ENDOCC) -------- REBECCA WHITE ([id number]) 1990 F Date Time Provider Department 10/03/20 JOYCELYN ALLEN ENDOCC During your visit today, we recorded the [...] pool. PSS NOTE: Patient needs scheduled appointment Lisbet Garcia 10/20/2020 2:11 PM Signed LM for [...] (FLONASE) 50 mcg/actuation nasal spray Use 1 [place] in the nose as needed. - sertraline [...] twice daily with meals. Encounter Status:Closed by ZEYAD GARCIA on 10/20/20 Normal [facility] Estradiol-17Bon 09-10-2020 Estradiol-17B 57 pg/mL Normal [facility] Comment on above: Result Comment: This test [...] 3243 pg/mL Second trimester : 1561 TO 65293 pg/mL Third trimester : 8285 to >97405 pg/mL Post-menopausal Estradiol reference range: < 41 pg/mL Reference: 1. Estradiol - E2 (Estradiol III) [package insert V 3.0 [place]]. [facility], [place], [place], July 2015. Performed By: #### I NSULN, DHEAS, VITD, HBA1C, GERMAIN #### [facility] [address] [place], [place] [address] HCG, Quantitative Blon 09-10 HCG, Quantitative Bl <0.6 Normal <5.0 [facility] Comment on above: Result Comment: PAT JULIO Performed By: #### I NSULN, DHEAS, VITD, HBA1C, DIONISIO #### [facility] [address] [place], [place] [address] Progesteroneon 09-10-2020 Progesterone 0.2 ng/mL Normal [facility] Comment on above: Result Comment: Mens trual Cycle Progesterone Reference Ranges: Follicular:<1.0 ng/mL Ovulation:<12.1 ng/mL Luteal:1.8 to 23.9 ng/mL Progesterone Reference Ranges vary by gestational period: First Trimester:11.0 to 44.3 ng/mL Second trimester: 25.4 to 83.3 ng/mL Third trimester: 58.7 to 214 ng/mL Post menopausal Progesterone:<0.5 ng/mL Reference: 1. Progesterone (Progesterone III) [package insert V 1.0 [place]]. [facility], [place], [place]. November 2014. Performed By: #### I NSULN, DHEAS, VITD, HBA1CDIONISIO #### [facility] [address] [place], [place] [address] CNPNon 09-09-2020 CNPN Telephone (OBGYAV) -------- REBECCA WHITE ([id number]) 1990 F Date Time Provider Department 09/09/20 HALLE LEACH OBNIKA During your visit today, we recorded the following information about you: Sheela Greenart CARREONN 09/09/2020 9:12 AM Signed Pt called Negative home test Day 42 of her cycle Please call [phone] Ok to leave a message Rafaela Millard RN 09/09/2020 12:31 PM Signed Patient had sent my chart message Called the patient she verified her name and date of . Patient last cycle was 42 days ago. Mile 25 2021 Last cycle she took clomid 100 mg She has taken multiple tests all are negative. Routing to Non [facility] Pool Labs pended and medication Rafaela Millard RN September 09, 2020 12:30 PM Maurice Bonilla APRN.RN HEMODIALYSIS 09/09/2020 12:43 PM Signed Labs ordered, if negative, will order provera to induce period. Maurice Bonilla APRN.BRENDEN September 09, 2020 12:42 PM Rafaela Millard [...] amenorrhea [N91.1] Order(s):HCG QUANTITATIVE [SQHCGQT] Order #: [id number] FUTURE PROGESTERONE BLD [SQPROG] Order #: [id number] FUTURE ESTRADIOL-17B BLD [SQE2] Order #: [id number] FUTURE SCHEDULE LAB TESTING [5228870] Order #: [id number] FUTURE Prescriptions as of 09/09/2020 - medroxyPROGESTERone (PROVERA) 10 mg tablet Take 1 tablet by mouth once daily for 10 days. - fluticasone (FLONASE) 50 mcg/actuation nasal spray Use 1 [place] in the nose as needed. - sertraline [...] Encounter Status:Closed by MAURICE BONILLA on 09/09/20 [facility] REBECCA WHITE ([id number]) 1990 F Date Time Provider Department 09/03/20 HALLE LEACH During your visit today, we recorded the following information about you: Rafaela Millard RN 09/03/2020 8:22 AM Signed Patient sent a [employer] chart message. Called the patient she verified [...] used provera was May. Routing to Non [facility] Pool for advisement Rafaela Millard RN September 03, 2020 8:22 AM Allergies As of Date: 09/03/2020 (No Known Allergies) Date Reviewed: 05/06/2020 Reviewed by: Liliane Drew - Fully Assessed Reason for Visit: Question [2237] Prescriptions as of 09/09/2020 - medroxyPROGESTERone (PROVERA) 10 mg tablet Take 1 tablet by mouth once daily for 10 days. - fluticasone (FLONASE) 50 mcg/actuation nasal spray Use 1 [place] in the nose as needed. - sertraline [...] Status:Closed by RAFAELA MILLARD on 09/09/20 Normal [facility] Progesteroneon 06-16-2020 Progesterone 14.3 ng/mL Normal [facility] Comment on above: Result Comment: Mens trual Cycle Progesterone Reference Ranges: Follicular:<1.0 ng/mL Ovulation:<12.1 ng/mL Luteal:1.8 to 23.9 ng/mL Progesterone Reference Ranges vary by gestational period: First Trimester:11.0 to 44.3 ng/mL Second trimester: 25.4 to 83.3 ng/mL Third trimester: 58.7 to 214 ng/mL Post menopausal Progesterone:<0.5 ng/mL Reference: 1. Progesterone (Progesterone III) [package insert V 1.0 [place]]. [facility], [place], [place]. November 2014. Performed By: #### P ELIZABETH #### [place] [address] Anti Germain Hormoneon 2020 Anti Germain Hormone 9.30 ng/mL High 0.58-8.13 [facility] Comment on above: Performed By: #### I NSULN, DHEAS, VITD, HBA1C, GERMAIN #### [place] [address] [place] [address] CBCon 05-06-2020 Absolute nRBC <0.01 Normal <0.01 [facility] Comment on above: Performed By: #### I NSULN, DHEAS, VITD, HBA1C, GERMAIN #### [place] [address] Erythrocyte distribution width (RBC) [Ratio] 13.2 % Normal 11.5-15.0 [facility] Comment on above: Performed By: #### I NSULN, DHEAS, VITD, HBA1C, GERMAIN #### [place] [address] Hematocrit (Bld) [Volume fraction] 44.5 % Normal 36.0-46.0 [facility] Comment on above: Performed By: #### I NSULN, DHEAS, VITD, HBA1C, GERMAIN #### [place] [address] [place], [place] [address] Hemoglobin (Bld) [Mass/Vol] 14.6 g/dL Normal 11.5-15.5 [facility] Comment on above: Performed By: #### I NSULN, DHEAS, VITD, HBA1C, DIONISIO #### [place] [address] [place] [id number] MCH 29.4 pG Normal 26.0-34.0 [facility] Comment on above: Performed By: #### I NSULN, DHEAS, VITD, HBA1C, DIONISIO #### [place] [address] [place] [address] MCHC (RBC) [Mass/Vol] 32.8 g/dL Normal 30.5-36.0 [facility] Comment on above: Performed By: #### I NSULN, DHEAS, VITD, HBA1C, DIONISIO #### [place] [address] [place] [address] MCV (RBC) [Entitic vol] 89.5 fL Normal 80.0-100.0 [facility] Comment on above: Performed By: #### I NSULN, DHEAS, VITD, HBA1C, DIONISIO #### [place] [address] [place], [place] [address] Platelet mean volume (Bld) [Entitic vol] 9.6 fL Normal 9.0-12.7 [facility] Comment on above: Performed By: #### I NSULN, DHEAS, VITD, HBA1C, DIONISIO #### [place] [address] [place], [place] [address] Platelets (Bld) [#/Vol] 314 10*3/uL Normal 150-400 [facility] Comment on above: Performed By: #### I NSULN, DHEAS, VITD, HBA1C, DIONISIO #### [place] [address] [place], [place] [address] RBC (Bld) [#/Vol] 4.97 10*6/uL Normal 3.90-5.20 [facility] Comment on above: Performed By: #### I NSULN, DHEAS, VITD, HBA1C, DIONISIO #### [facility] [address] [place], [place] [address] WBC (Bld) [#/Vol] 8.64 10*3/uL Normal 3.70-11.00 [facility] Comment on above: Performed By: #### I NSULN, DHEAS, VITD, HBA1C, DIONISIO #### [facility] [address] [place], [place] [address] CNOVon 05-06-2020 CNOV Office Visit (MINGO) -------- REBECCA WHITE ([id number]) 1990 F Date Time Provider Department 05/06/20 8:45 AM HALLE LEACH During your visit today, we recorded the following information about you: Pulse Blood pressure Weight Height 64/minute 119/64 104.6 kg 1.676 m Last Period 01/08/20 Liliane Drew MA 05/06/2020 8:50 AM Signed [facility] Date: 05/06/2020 Consultation Requested By: [...] Hysteroscopy Laparoscopy OPK (Ovulation Predictor Kit) [facility] [place] Ultrasound Semen Analysis Ultrasound Other (See [...] on file. 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/EXERCISE: Occupation: [employer] Exercise: no Partner Information Partner's Name: Pietro [...] (FLONASE) 50 mcg/actuation nasal spray Use 1 [place] in the nose as needed. - sertraline [...] with more than 50% of the total drmt-wy-eazg time of the visit in counseling / coordination of care. Medical Decision Making Consultation requested by Dr. Joycelyn Allen MD [address] [place] [address] [place] [id number] for an opinion regarding irregular period and my recommendations will be (more content not included)... Normal [facility] CONSULT PROGon 05-06-2020 CONSULT PROG HNO ID: [id number] Author: Liliane Drew Service: ? Author Type: Photo Optics Technician Type: Consult Progress Note Filed: 05/11/2020 7:30 PM Note Text: [facility] Date: 05/06/2020 Consultation Requested By: [...] Hysteroscopy Laparoscopy OPK (Ovulation Predictor Kit) [facility] [place] Ultrasound Semen Analysis Ultrasound Other (See [...] on file. 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/EXERCISE: Occupation: [employer] Exercise: no Partner Information Partner's Name: Pietro [...] (FLONASE) 50 mcg/actuation nasal spray Use 1 [place] in the nose as needed. - sertraline [...] with more than 50% of the total xuni-oq-qcjz time of the visit in counseling / coordination of care. Medical Decision Making Consultation requested by Dr. Joycelyn Allen MD [address] [place] [address] [place] [id number] for an opinion regarding irregular period and my recommendations will be communicated back to the requesting physician by way of shared Medical record or letter via US mail , MD signature - MD Shirin Agosto MD [facility] Comp Metabolic Panelon 05-06 Albumin [Mass/Vol] 4.2 g/dL Normal 3.9-4.9 [facility] Comment on above: Performed By: #### I NSULN, DHEAS, VITD, HBA1C, GERMAIN #### [facility] [address] [place], [place] [address] ALP [Catalytic activity/Vol] 81 U/L Normal 34-123 [facility] Comment on above: Performed By: #### I NSULN, DHEAS, VITD, HBA1C, GERMAIN #### [place] [address] [place], [place] [address] ALT [Catalytic activity/Vol] 18 U/L Normal 7-38 [facility] Comment on above: Performed By: #### I NSULN, DHEAS, VITD, HBA1C, GERMAIN #### [place] [address] [place], [place] [address] Anion gap [Moles/Vol] 13 mmol/L Normal 9-18 [facility] Comment on above: Performed By: #### I NSULN, DHEAS, VITD, HBA1C, GERMAIN #### [place] [address] [place], [place] [address] AST [Catalytic activity/Vol] 19 U/L Normal 13-35 [facility] Comment on above: Performed By: #### I NSULN, DHEAS, VITD, HBA1C, GERMAIN #### [facility] [address] [place], [place] [address] Bilirubin [Mass/Vol] 0.3 mg/dL Normal 0.2-1.3 [facility] Comment on above: Performed By: #### I NSULN, DHEAS, VITD, HBA1C, GERMAIN #### [facility] [address] [place], [place] [address] Calcium [Mass/Vol] 9.3 mg/dL Normal 8.5-10.2 [facility] Comment on above: Performed By: #### I NSULN, DHEAS, VITD, HBA1C, GERMAIN #### [facility] [address] [place] [address] Chloride [Moles/Vol] 103 mmol/L Normal 97-105 [facility] Comment on above: Performed By: #### I NSULN, DHEAS, VITD, HBA1C, GERMAIN #### [place] [address] [place] [address] CO2 [Moles/Vol] 24 mmol/L Normal 22-30 [facility] Comment on above: Performed By: #### I NSULN, DHEAS, VITD, HBA1C, GERMAIN #### [place] [phone] Creatinine [Mass/Vol] 0.72 mg/dL Normal 0.58-0.96 [facility] Comment on above: Performed By: #### I NSULN, DHEAS, VITD, HBA1C, GERMAIN #### [place] [address] eGFR- Amer. >60 Normal [facility] Comment on above: Performed By: #### I NSULN, DHEAS, VITD, HBA1C, GERMAIN #### [place] [address] [place] [address] eGFR-All Other Races >[address] [facility] Comment on above: Result Comment: eGFR [...] I NSULN, DHEAS, VITD, HBA1C, GERMAIN #### [place] [address] [place] [id number] Glucose [Mass/Vol] 85 mg/dL Normal 74-99 [facility] Comment on above: Result Comment: The [place] Diabetes Association (ADA) provides guidance for cutoff [...] Standards of Medical Care in Diabetes 2016, [place] [employer] Association. Diabetes Care. 2016.39(Suppl 1). Performed By: #### I NSULN, DHEAS, VITD, HBA1C, GERMAIN #### [place] [address] [place] [address] Potassium [Moles/Vol] 3.9 mmol/L Normal 3.7-5.1 [facility] Comment on above: Performed By: #### I NSULN, DHEAS, VITD, HBA1C, GERMAIN #### [place] [address] [place] [id number] Protein [Mass/Vol] 7.4 g/dL Normal 6.3-8.0 [facility] Comment on above: Performed By: #### I NSULN, DHEAS, VITD, HBA1C, GERMAIN #### [facility] [address] [place], [place] [address] Sodium [Moles/Vol] 140 mmol/L Normal 136-144 [facility] Comment on above: Performed By: #### I NSULN, DHEAS, VITD, HBA1C, GERMAIN #### [facility] [address] [place], [place] [address] Urea nitrogen [Mass/Vol] 9 mg/dL Normal 7-21 [facility] Comment on above: Performed By: #### I NSULN, DHEAS, VITD, HBA1C, DIONISIO #### [facility] [address] [place] [address] DHEA-Son 05-06-2020 DHEA-S 154.9 ug/dL Normal 98.8-340.0 [facility] Comment on above: Result Comment: Refe rence ranges are age and gender specific. For additional information, reference range tables can be found in the laboratory test directory. The normal values are based on the following source: Dehydroepiandrosterone sulfate (DHEA S) [package insert V 17.0 [place]]. [facility], [place], [place]: September 2012. Performed By: #### I NSULN, DHEAS, VITD, HBA1CDIONISIO #### [place] [address] [place] [id number] Hemoglobin A1con 05-06-2020 Glucose [Mass/Vol] 111 mg/dL Normal [facility] Comment on above: Result Comment: eAG: (Estimated average glucose) is a calculated value from HgbA1c and is physician relations representative of the average blood glucose level in the last 2-3 month period. Performed By: #### I NSULN, DHEAS, VITD, HBA1CDIONISIO #### [place] [address] [place] [address] HbA1c (Bld) [Mass fraction] 5.5 % Normal 4.3-5.6 [facility] Comment on above: Result Comment: Amer [place] Diabetes Association guidelines indicate that patients with HgbA1c in the range 5.7-6.4% are at increased risk for development of diabetes, and intervention by lifestyle modification may be beneficial. HgbA1c greater or equal to 6.5% is considered diagnostic of diabetes. Performed By: #### I NSULN, DHEAS, VITD, HBA1C, DIONISIO #### [facility] [address] [place] [id number] Insulinon 05-06-2020 Insulin 16.4 mU/L Normal 3.0-25.0 [facility] Comment on above: Performed By: #### I NSULN, DHEAS, VITD, HBA1C, DIONISIO #### [facility] [address] [place] [address] Testosterone, Tot/Fron 05-06 Testosterone [Mass/Vol] 77 ng/dL High 8-60 [facility] Comment on above: Result Comment: (NOT E) ADDITIONAL INFORMATION Testing performed by Liquid Chromatography-Tandem Mass Spectrometry (LC-MS/MS). This test was developed and its performance characteristics determined by [facility] in a manner consistent with CLIA requirements. This test has not been cleared or approved by the U.S. Food and Drug Administration. Performed By: #### T FTEST #### [facility] [place] [address] [place] [address] Testosterone, Free 1.54 ng/dL High 0.06-1.03 [facility] Comment on above: Result Comment: (NOT E) ADDITIONAL INFORMATION Testing performed by [facility]. This test was developed and its performance characteristics determined by [facility] in a manner consistent with CLIA requirements. This test has not been cleared or approved by the U.S. Food and Drug Administration. Performed By: #### T FTEST #### [facility] [place] [address] [place] [address] Vitamin D 25 Hydroxyon 05-06 Vitamin D 25 Hydroxy 24.7 ng/mL Low 31.0-80.0 [facility] Comment on above: Result Comment: Clas sification of 25 [place] Vitamin D status: Insufficiency/Moderate Deficiency: < or = 30 ng/mL Sufficiency/Optimal Levels: 31 to 80 ng/mL Toxicity: > 100 ng/mL Test performed by chemiluminescent immunoassay. Performed By: #### I NSULN, DHEAS, VITD, HBA1C, DIONISIO #### [facility] [address] [place] [address] Creatinine,Urine,24hon 03-29 Creatinine,Urine,24h 1.713 g/24 hr Normal 0.8-1.8 [facility] Comment on above: Performed By: #### I NSULN, DHEAS, VITD, HBA1C, GERMAIN #### [facility] [address] [place] [address] Free Ben, UR LCMSMSon 03-29 Collect Lgth, UFRCRT [address] [facility] Comment on above: Performed By: #### I NSULN, DHEAS, VITD, HBA1C, GERMAIN #### [place] [address] Creatinine [Mass/Vol] 214 mg/dL Normal [facility] Comment on above: Performed By: #### I NSULN, DHEAS, VITD, HBA1C, GERMAIN #### [place] [address] Total Volume, UFRCRT [address] [facility] Comment on above: Performed By: #### I NSULN, DHEAS, VITD, HBA1C, GERMAIN #### [place] [address] [place], [place] [address] UR Ben Free Interp SEE NOTE Normal [facility] Comment on above: Result Comment: (NOT E) INTERPRETIVE INFORMATION: Cortisol Urine Free by LC-MS/MS Access complete set of age- and/or gender-specific reference intervals for this test in the [employer] [facility] Test Directory ([employer]). This test was developed and its performance characteristics determined by [facility]. It has not been cleared or approved by the US Food and Drug Administration. This test was performed in a CLIA certified laboratory and is intended for clinical purposes. Performed by [facility], [address] [place] [address],[place] [address] [email or web address], Lin Rosales MD, Lab. Director Performed By: #### I NSULN, DHEAS, VITD, HBA1C, GERMAIN #### [facility] [address] [place], [place] [address] UR Ben Free ug/d 14.5 ug/d Normal <=45.0 [facility] Comment on above: Performed By: #### I NSULN, DHEAS, VITD, HBA1C, GERMAIN #### [facility] [address] [place], [place] [address] UR Ben Free ug/L 20.40 ug/L Normal [facility] Comment on above: Performed By: #### I NSULN, DHEAS, VITD, HBA1C, GERMAIN #### [facility] [address] [place] [address] UR Cortisol ug/g service desk specialist 9.53 ug/g CAMPUS SECURITY DIRECT[employer] [facility] Comment on above: Result Comment: (NOT E) Reference Interval: Cortisol ug/g service desk specialist Female Prepubertal: Less than 25 ug/g service desk specialist 18 years and older: Less than 24 ug/g service desk specialist : Less than 59 ug/g service desk specialist Male Prepubertal: Less than 25 ug/g service desk specialist 18 years and older: Less than 32 ug/g service desk specialist Performed By: #### I NSULN, DHEAS, VITD, HBA1C, GERMAIN #### [facility] [address] [place], [place] [address] UR,Creatinine mg/day 1519 mg/d Normal 700-1600 [facility] Comment on above: Performed By: #### I NSULN, DHEAS, VITD, HBA1C, GERMAIN #### [facility] [address] [place] [id number] Period / Volumeon 03-29-[address] [facility] Comment on above: Performed By: #### I NSULN, DHEAS, VITD, HBA1C, GERMAIN #### [facility] [address] [place], [place] [address] Collection End Time [address] [facility] Comment on above: Performed By: #### I NSULN, DHEAS, VITD, HBA1C, GERMAIN #### [facility] [address] [place] [phone] Collection Start Date Normal [facility] Comment on above: Performed By: #### I NSULN, DHEAS, VITD, HBA1C, GERMAIN #### [facility] [address] [place] [phone] Collection Start Time 0930 Normal [facility] Comment on above: Performed By: #### I NSULN, DHEAS, VITD, HBA1C, GERMAIN #### [facility] [address] [place] [phone] Period 24 hr Normal [facility] Comment on above: Performed By: #### I NSULN, DHEAS, VITD, HBA1C, GERMAIN #### [facility] [address] [place] [phone] Volume 710 mL Normal [facility] Comment on above: Performed By: #### I NSULN, DHEAS, VITD, HBA1C, GERMAIN #### [facility] [address] [place] [phone] Vital Signs Date Time Vital Sign Value Performing Clinician Faci kirsten 05-15-2024 13:08-0400 Body height 165.1 cm Fran Oseguera MD Work Phone: [facility] 05-15-2024 13:08-0400 Body mass index (BMI) [Ratio] 46.26 kg/m2 Fran Oseguera MD Work Phone: [facility] 05-15-2024 13:08-0400 Body weight 126.1 kg Fran Oseguera MD Work Phone: [facility] 05-15-2024 13:08-0400 Diastolic blood pressure 80 mm[Hg] Fran Oseguera MD Work Phone: [facility] 05-15-2024 13:08-0400 Heart rate 84 /min Fran Oseguera MD Work Phone: [facility] 05-15-2024 13:08-0400 Systolic blood pressure 126 mm[Hg] Fran Oseguera MD Work Phone: [facility] 05-01-2024 14:50-0400 Body height 165.1 cm [facility] 05-01-2024 14:50-0400 Body mass index (BMI) [Ratio] 46.1 kg/m2 [facility] 05-01-2024 14:50-0400 Body weight 125.81 kg [facility] 05-01-2024 14:50-0400 Diastolic blood pressure 73 mm[Hg] [facility] 05-01-2024 14:50-0400 Heart rate 96 /min [facility] 05-01-2024 14:50-0400 Respiratory rate 12 /min [facility] 05-01-2024 14:50-0400 SaO2% (BldA) [Mass fraction] 98 % [facility] 05-01-2024 14:50-0400 Systolic blood pressure 128 mm[Hg] [facility] 03-27-2024 09:45-0500 Body height 165.1 cm [facility] 03-27-2024 09:45-0500 Body mass index (BMI) [Ratio] 45.7 kg/m2 [facility] 03-27-2024 09:45-0500 Body weight 124.73 kg [facility] 03-27-2024 09:45-0500 Diastolic blood pressure 84 mm[Hg] [facility] 03-27-2024 09:45-0500 Heart rate 85 /min [facility] 03-27-2024 09:45-0500 SaO2% (BldA) [Mass fraction] 97 % [facility] 03-27-2024 09:45-0500 Systolic blood pressure 125 mm[Hg] [facility] 03-11-2024 16:21-0500 Body mass index (BMI) [Ratio] 45.76 kg/m2 Naya Butler NP Work Phone: [facility] 03-11-2024 16:21-0500 Body weight 124.74 kg Naya Butler APPLICATION PACKAGER Work Phone: [facility] 03-11-2024 16:21-0500 Diastolic blood pressure 86 mm[Hg] Naya Butler APPLICATION PACKAGER Work Phone: [facility] 03-11-2024 16:21-0500 Heart rate 104 /min Naya Butler APPLICATION PACKAGER Work Phone: [facility] 03-11-2024 16:21-0500 SaO2% (BldA) [Mass fraction] 95 % Naya Butler APPLICATION PACKAGER Work Phone: [facility] 03-11-2024 16:21-0500 Systolic blood pressure 142 mm[Hg] Naya Butler APPLICATION PACKAGER Work Phone: [facility] 03-06-2024 09:35-0500 Body height 165.1 cm [facility] 03-06-2024 09:35-0500 Body mass index (BMI) [Ratio] 45.6 kg/m2 [facility] 03-06-2024 09:35-0500 Body weight 124.39 kg [facility] 03-06-2024 09:35-0500 Diastolic blood pressure 62 mm[Hg] [facility] 03-06-2024 09:35-0500 Heart rate 62 /min [facility] 03-06-2024 09:35-0500 SaO2% (BldA) [Mass fraction] 96 % [facility] 03-06-2024 09:35-0500 Systolic blood pressure 108 mm[Hg] [facility] 03-06-2024 08:40-0500 Body mass index (BMI) [Ratio] 45.62 kg/m2 Ricci Harpreet DO Work Phone: [facility] 03-06-2024 08:40-0500 Body weight 124.34 kg Ricci Harpreet DO Work Phone: [facility] 03-06-2024 08:40-0500 Diastolic blood pressure 78 mm[Hg] Ricci Harpreet DO Work Phone: [facility] 03-06-2024 08:40-0500 Systolic blood pressure 120 mm[Hg] Ricci Mullins DO Work Phone: [facility] 02-26-2024 10:01-0500 Body height 165.1 cm [facility] 02-26-2024 10:01-0500 Body mass index (BMI) [Ratio] 45.7 kg/m2 [facility] 02-26-2024 10:01-0500 Body weight 124.73 kg [facility] 02-26-2024 10:01-0500 Diastolic blood pressure 64 mm[Hg] [facility] 02-26-2024 10:01-0500 Heart rate 99 /min [facility] 02-26-2024 10:01-0500 Systolic blood pressure 111 mm[Hg] [facility] 02-14-2024 11:24-0500 Body height 165.1 cm [facility] 02-14-2024 11:24-0500 Body mass index (BMI) [Ratio] 45.7 kg/m2 [facility] 02-14-2024 11:24-0500 Body temperature 97.7 [degF] [facility] 02-14-2024 11:24-0500 Body weight 124.73 kg [facility] 02-14-2024 11:24-0500 Diastolic blood pressure 73 mm[Hg] [facility] 02-14-2024 11:24-0500 Heart rate 87 /min [facility] 02-14-2024 11:24-0500 SaO2% (BldA) [Mass fraction] 97 % [facility] 02-14-2024 11:24-0500 Systolic blood pressure 107 mm[Hg] [facility] 01-22-2024 13:01-0500 Body mass index (BMI) [Ratio] 45.43 kg/m2 Naya Butler APPLICATION PACKAGER Work Phone: [facility] 01-22-2024 13:01-0500 Body weight 123.83 kg Naya Butler APPLICATION PACKAGER Work Phone: [facility] 01-22-2024 13:01-0500 Diastolic blood pressure 70 mm[Hg] Naya Butler APPLICATION PACKAGER Work Phone: [facility] 01-22-2024 13:01-0500 Heart rate 98 /min Naya Butler APPLICATION PACKAGER Work Phone: [facility] 01-22-2024 13:01-0500 SaO2% (BldA) [Mass fraction] 96 % Naya Butler APPLICATION PACKAGER Work Phone: [facility] 01-22-2024 13:01-0500 Systolic blood pressure 118 mm[Hg] Naya Butler APPLICATION PACKAGER Work Phone: [facility] 01-17-2024 15:35-0500 Body height 165.1 cm [facility] 01-17-2024 15:35-0500 Body mass index (BMI) [Ratio] 44.7 kg/m2 [facility] 01-17-2024 15:35-0500 Body weight 122.01 kg [facility] 01-17-2024 15:35-0500 Diastolic blood pressure 68 mm[Hg] [facility] 01-17-2024 15:35-0500 Heart rate 78 /min [facility] 01-17-2024 15:35-0500 SaO2% (BldA) [Mass fraction] 98 % [facility] 01-17-2024 15:35-0500 Systolic blood pressure 110 mm[Hg] [facility] 12-24-2023 15:29-0500 Body height 165.1 cm Alyssa Butterfield MD Work Phone: [facility] 12-24-2023 15:29-0500 Body mass index (BMI) [Ratio] 43.9 kg/m2 Alyssa Butterfield MD Work Phone: [facility] 12-24-2023 15:29-0500 Body weight 119.74 kg Alyssa Butterfield MD Work Phone: [facility] 12-24-2023 15:29-0500 Diastolic blood pressure 78 mm[Hg] Alyssa Butterfield MD Work Phone: [facility] 12-24-2023 15:29-0500 Heart rate 86 /min Alyssa Butterfield MD Work Phone: [facility] 12-24-2023 15:29-0500 SaO2% (BldA) [Mass fraction] 97 % Alyssa Butterfield MD Work Phone: [facility] 12-24-2023 15:29-0500 Systolic blood pressure 110 mm[Hg] Alyssa Butterfield MD Work Phone: [facility] 11-20-2023 08:15-0400 Body mass index (BMI) [Ratio] 45.73 kg/m2 Christopher Alex DO Work Phone: [facility] 11-20-2023 08:15-0400 Body weight 124.65 kg Christopher Alex DO Work Phone: [facility] 11-20-2023 08:15-0400 Diastolic blood pressure 80 mm[Hg] Christopher Alex DO Work Phone: [facility] 11-20-2023 08:15-0400 Heart rate 91 /min Christopher Alex DO Work Phone: [facility] 11-20-2023 08:15-0400 SaO2% (BldA) [Mass fraction] 95 % Christopher Alex DO Work Phone: [facility] 11-20-2023 08:15-0400 Systolic blood pressure 131 mm[Hg] Christopher Alex DO Work Phone: [facility] 10-22-2023 13:54-0400 Body height 165.1 cm MD Alyssa Butterfield Work Phone: [facility] 10-22-2023 13:54-0400 Body mass index (BMI) [Ratio] 46.2 kg/m2 MD Alyssa Butterfield Work Phone: [facility] 10-22-2023 13:54-0400 Body weight 126.09 kg MD Alyssa Butterfield Work Phone: [facility] 10-22-2023 13:54-0400 Diastolic blood pressure 64 mm[Hg] MD Alyssa Butterfield Work Phone: [facility] 10-22-2023 13:54-0400 Heart rate 80 /min MD Alyssa Butterfield Work Phone: [facility] 10-22-2023 13:54-0400 Systolic blood pressure 96 mm[Hg] MD Alyssa Butterfield Work Phone: [facility] 10-15-2023 15:49-0400 Body height 165.1 cm Naya Butler APPLICATION PACKAGER Work Phone: [facility] 10-15-2023 15:49-0400 Body mass index (BMI) [Ratio] 44.93 kg/m2 Naya Butler APPLICATION PACKAGER Work Phone: [facility] 10-15-2023 15:49-0400 Body weight 122.47 kg Naya Butler APPLICATION PACKAGER Work Phone: [facility] 10-15-2023 15:49-0400 Diastolic blood pressure 72 mm[Hg] Naya Butler APPLICATION PACKAGER Work Phone: [facility] 10-15-2023 15:49-0400 Heart rate 87 /min Naya Butler APPLICATION PACKAGER Work Phone: [facility] 10-15-2023 15:49-0400 SaO2% (BldA) [Mass fraction] 97 % Naya Butler APPLICATION PACKAGER Work Phone: [facility] 10-15-2023 15:49-0400 Systolic blood pressure 134 mm[Hg] Naya Butler APPLICATION PACKAGER Work Phone: [facility] 09-27-2023 13:55-0400 Body height 165.1 cm MD Alyssa Butterfield Work Phone: [facility] 09-27-2023 13:55-0400 Body mass index (BMI) [Ratio] 45.1 kg/m2 MD Alyssa Butterfield Work Phone: [facility] 09-27-2023 13:55-0400 Body weight 122.92 kg MD Alyssa Butterfield Work Phone: [facility] 09-27-2023 13:55-0400 Diastolic blood pressure 61 mm[Hg] MD Alyssa Butterfield Work Phone: [facility] 09-27-2023 13:55-0400 Heart rate 101 /min MD Alyssa Butterfield Work Phone: [facility] 09-27-2023 13:55-0400 Systolic blood pressure 94 mm[Hg] MD Alyssa Butterfield Work Phone: [facility] 09-25-2023 09:35-0400 Diastolic blood pressure 74 mm[Hg] MD Alyssa Butterfield Work Phone: [facility] 09-25-2023 09:35-0400 Heart rate 72 /min MD Alyssa Butterfield Work Phone: [facility] 09-25-2023 09:35-0400 Respiratory rate 16 /min MD Alyssa Butterfield Work Phone: [facility] 09-25-2023 09:35-0400 SaO2% (BldA) [Mass fraction] 96 % MD Alyssa Butterfield Work Phone: [facility] 09-25-2023 09:35-0400 Systolic blood pressure 117 mm[Hg] MD Alyssa Butterfield Work Phone: [facility] 09-25-2023 07:59-0400 Body height 165.1 cm MD Alyssa Butterfield Work Phone: [facility] 09-25-2023 07:59-0400 Body weight 120.2 kg MD Alyssa Butterfield Work Phone: [facility] 09-06-2023 09:51-0400 Body height 165.1 cm MD Alyssa Butterfield Work Phone: [facility] 09-06-2023 09:51-0400 Body mass index (BMI) [Ratio] 44.7 kg/m2 MD Alyssa Butterfield Work Phone: [facility] 09-06-2023 09:51-0400 Body weight 122.01 kg MD Alyssa Butterfield Work Phone: [facility] 09-06-2023 09:51-0400 Diastolic blood pressure 69 mm[Hg] MD Alyssa Butterfield Work Phone: [facility] 09-06-2023 09:51-0400 Heart rate 88 /min MD Alyssa Butterfield Work Phone: [facility] 09-06-2023 09:51-0400 Systolic blood pressure 105 mm[Hg] MD Alyssa Butterfield Work Phone: [facility] 08-16-2023 09:30-0400 Body height 165.1 cm MD Alyssa Butterfield Work Phone: [facility] 08-16-2023 09:30-0400 Body mass index (BMI) [Ratio] 44.6 kg/m2 MD Alyssa Butterfield Work Phone: [facility] 08-16-2023 09:30-0400 Body temperature 98.4 [degF] MD Alyssa Butterfield Work Phone: [facility] 08-16-2023 09:30-0400 Body weight 121.56 kg MD Alyssa Butterfield Work Phone: [facility] 08-16-2023 09:30-0400 Diastolic blood pressure 78 mm[Hg] MD Alyssa Butterfield Work Phone: [facility] 08-16-2023 09:30-0400 Heart rate 74 /min MD Alyssa Butterfield Work Phone: [facility] 08-16-2023 09:30-0400 SaO2% (BldA) [Mass fraction] 98 % MD Alyssa Butterfield Work Phone: [facility] 08-16-2023 09:30-0400 Systolic blood pressure 126 mm[Hg] MD Alyssa Butterfield Work Phone: [facility] 07-31-2023 15:22-0400 Body height 165.1 cm MD Alyssa Butterfield Work Phone: [facility] 07-31-2023 15:22-0400 Body mass index (BMI) [Ratio] 44.4 kg/m2 MD Alyssa Butterfield Work Phone: [facility] 07-31-2023 15:22-0400 Body temperature 98.5 [degF] MD Alyssa Butterfield Work Phone: [facility] 07-31-2023 15:22-0400 Body weight 121.1 kg MD Alyssa Butterfield Work Phone: [facility] 07-31-2023 15:22-0400 Diastolic blood pressure 87 mm[Hg] MD Alyssa Butterfield Work Phone: [facility] 07-31-2023 15:22-0400 Heart rate 90 /min MD Alyssa Butterfield Work Phone: [facility] 07-31-2023 15:22-0400 Systolic blood pressure 137 mm[Hg] MD Alyssa Butterfield Work Phone: [facility] 06-28-2023 13:48-0400 Body height 165.1 cm MD Alyssa Butterfield Work Phone: [facility] 06-28-2023 13:48-0400 Body mass index (BMI) [Ratio] 44.6 kg/m2 MD Alyssa Butterfield Work Phone: [facility] 06-28-2023 13:48-0400 Body weight 121.56 kg MD Alyssa Butterfield Work Phone: [facility] 06-28-2023 13:48-0400 Diastolic blood pressure 69 mm[Hg] MD Alyssa Butterfield Work Phone: [facility] 06-28-2023 13:48-0400 Heart rate 83 /min MD Alyssa Butterfield Work Phone: [facility] 06-28-2023 13:48-0400 Systolic blood pressure 104 mm[Hg] MD Alyssa Butterfield Work Phone: [facility] 05-30-2023 09:59-0400 Body height 165.1 cm MD Alyssa Butterfield Work Phone: [facility] 05-30-2023 09:59-0400 Body mass index (BMI) [Ratio] 44.1 kg/m2 MD Alyssa Butterfield Work Phone: [facility] 05-30-2023 09:59-0400 Body weight 120.31 kg MD Alyssa Butterfield Work Phone: [facility] 05-30-2023 09:59-0400 Diastolic blood pressure 80 mm[Hg] MD Alyssa Butterfield Work Phone: [facility] 05-30-2023 09:59-0400 Heart rate 92 /min MD Alyssa Butterfield Work Phone: [facility] 05-30-2023 09:59-0400 SaO2% (BldA) [Mass fraction] 98 % MD Alyssa Butterfield Work Phone: [facility] 05-30-2023 09:59-0400 Systolic blood pressure 124 mm[Hg] MD Alyssa Butterfield Work Phone: [facility] 04-30-2023 13:14-0400 Body height 165.1 cm MD Alyssa Butterfield Work Phone: [facility] 04-30-2023 13:14-0400 Body mass index (BMI) [Ratio] 43.8 kg/m2 MD Alyssa Butterfield Work Phone: [facility] 04-30-2023 13:14-0400 Body weight 119.4 kg MD Alyssa Butterfield Work Phone: [facility] 04-30-2023 13:14-0400 Diastolic blood pressure 72 mm[Hg] MD Alyssa Butterfield Work Phone: [facility] 04-30-2023 13:14-0400 Heart rate 92 /min MD Alyssa Butterfield Work Phone: [facility] 04-30-2023 13:14-0400 Systolic blood pressure 104 mm[Hg] MD Alyssa Butterfield Work Phone: [facility] 04-18-2023 10:28-0400 Body height 165.1 cm MD Alyssa Butterfield Work Phone: [facility] 04-18-2023 10:28-0400 Body mass index (BMI) [Ratio] 42.4 kg/m2 MD Alyssa Butterfield Work Phone: [facility] 04-18-2023 10:28-0400 Body temperature 95.1 [degF] MD Alyssa Butterfield Work Phone: [facility] 04-18-2023 10:28-0400 Body weight 115.72 kg MD Alyssa Butterfield Work Phone: [facility] 04-18-2023 10:28-0400 Diastolic blood pressure 69 mm[Hg] MD Alyssa Butterfield Work Phone: [facility] 04-18-2023 10:28-0400 Heart rate 83 /min MD Alyssa Butterfield Work Phone: [facility] 04-18-2023 10:28-0400 Systolic blood pressure 92 mm[Hg] MD Alyssa Butterfield Work Phone: [facility] 04-16-2023 08:55-0400 Body height 165.1 cm MD Alyssa Butterfield Work Phone: [facility] 04-16-2023 08:55-0400 Body mass index (BMI) [Ratio] 42.5 kg/m2 MD Alyssa Butterfield Work Phone: [facility] 04-16-2023 08:55-0400 Body temperature 96.1 [degF] MD Alyssa Butterfield Work Phone: [facility] 04-16-2023 08:55-0400 Body weight 115.83 kg MD Alyssa Butterfield Work Phone: [facility] 04-16-2023 08:55-0400 Diastolic blood pressure 79 mm[Hg] MD Alyssa Butterfield Work Phone: [facility] 04-16-2023 08:55-0400 Heart rate 79 /min MD Alyssa Butterfield Work Phone: [facility] 04-16-2023 08:55-0400 Systolic blood pressure 122 mm[Hg] MD Alyssa Butterfield Work Phone: [facility] 03-08-2023 08:30-0500 Body height 165.1 cm MD Alyssa Butterfield Work Phone: [facility] 03-08-2023 08:30-0500 Body weight 118.47 kg MD Alyssa Butterfield Work Phone: [facility] 03-08-2023 08:30-0500 Diastolic blood pressure 68 mm[Hg] MD Alyssa Butterfield Work Phone: [facility] 03-08-2023 08:30-0500 Systolic blood pressure 102 mm[Hg] MD Alyssa Butterfield Work Phone: [facility] 02-27-2022 09:45-0500 Body height 165.1 cm Alyssa Butterfield Other [facility] Other 02-27-2022 09:45-0500 Body mass index (BMI) [Ratio] 43.26 kg/m2 Alyssa Butterfield Other [facility] Other 02-27-2022 09:45-0500 Body weight 117.94 kg Alyssa Butterfield Other [facility] Other 02-27-2022 09:45-0500 Diastolic blood pressure 80 mm[Hg] Alyssa Butterfield Other [facility] Other 02-27-2022 09:45-0500 SaO2% (BldA) [Mass fraction] 91 % Alyssa Butterfield Other [facility] Other 02-27-2022 09:45-0500 Systolic blood pressure 120 mm[Hg] Alyssa Butterfield Other [facility] Other Encounters Encounter Date Encounter Type Care Provider Facility Start: 05-15-2024 End: 05-15-2024 Office outpatient new 60 minutes Fran Oseguera MD Work Phone: [facility] Comment on above: Encounter to [facility]; Mixed hyperlipidemia; SOB (shortness of breath) on exertion; Lightheadedness; Palpitations; Near syncope; Vertigo; Snoring; Insulin resistance; PCOS (polycystic ovarian syndrome); Family history of breast cancer; Adrenal mass 1 cm to 4 cm in diameter with no history of malignant neoplasm; Anxiety; Vitamin D deficiency; Hx of section; BMI 45.0-49.9, adult (Multi); Never smoked tobacco; Tachycardia Start: 05-01-2024 End: 05-01-2024 ambulatory [facility] Work Phone: Start: 05-01-2024 End: 05-01-2024 Patient encounter procedure [facility] Work Phone: Start: 04-29-2024 End: 04-29-2024 ambulatory NAYA BUTLER Not Available Start: 04-01-2024 End: 04-01-2024 Telephone encounter Naya Butler APPLICATION PACKAGER Work Phone: [facility] Start: 04-01-2024 End: 04-01-2024 ambulatory Yun Naranjo PT Work Phone: [facility] Comment on above: Cervicalgia (Primary Dx); Vertigo of central origin Start: 03-27-2024 End: 03-27-2024 [facility] Work Phone: Start: 03-27-2024 End: 03-27-2024 Patient encounter procedure [facility] Work Phone: Start: 03-11-2024 End: 03-11-2024 Office outpatient visit 15 minutes Naya Butler APPLICATION PACKAGER Work Phone: [facility] Comment on above: Dizziness (Primary D x); Intracranial hypertension; Class 3 severe obesity due to excess calories with serious comorbidity and body mass index (BMI) of 45.0 to 49.9 in adult ([facility]); Encounter for medication monitoring Start: 03-11-2024 End: 03-11-2024 ambulatory NAYA BUTLER Not Available Start: 03-11-2024 End: 03-11-2024 Bamboo flowsheet Naya Butler APPLICATION PACKAGER Work Phone: [facility] Start: 03-11-2024 End: 03-11-2024 Bamboo flowsheet Naya Butler APPLICATION PACKAGER Work Phone: [facility] [place] Start: 03-11-2024 End: 03-13-2024 Telephone encounter Naya Butler APPLICATION PACKAGER Work Phone: [facility] Comment on above: Ophtho note Start: 03-06-2024 End: 03-06-2024 Bamboo flowsheet Ricci Harpreet DO Work Phone: [facility] Start: 03-06-2024 End: 03-12-2024 Bamboo flowsheet Ricci Harpreet DO Work Phone: [facility] Start: 03-06-2024 End: 03-12-2024 Clinisync Result Encounter Ricci Harpreet DO Work Phone: [facility] Unsolicited Start: 03-06-2024 End: 03-06-2024 Patient encounter procedure Ricci Harpreet DO Work Phone: [facility] Work Phone: Start: 03-06-2024 End: 03-06-2024 Periodic preventive med est patient 18-39 yrs Ricci Harpreet DO Work Phone: [facility] Comment on above: Well woman exam with routine gynecological exam; control counseling Start: 03-06-2024 End: 03-06-2024 ambulatory RICCI [facility] Work Phone: Start: 02-26-2024 End: 02-26-2024 ambulatory [facility] Work Phone: Start: 02-26-2024 End: 02-26-2024 Patient encounter procedure [facility] Work Phone: Start: 02-14-2024 End: 02-14-2024 ambulatory [facility] Work Phone: Start: 02-14-2024 End: 02-14-2024 Patient encounter procedure [facility] Work Phone: Start: 02-05-2024 End: 02-05-2024 Treatment Yun Naranjo PT Work Phone: [facility] Comment on above: Cervicalgia (Primary Dx); Vertigo of central origin; Balance disorder Start: 01-23-2024 End: 01-23-2024 Evaluation Yun Naranjo PT Work Phone: [facility] Comment on above: Cervicalgia (Primary Dx); Balance disorder; Dizziness; Vertigo of central origin Start: 01-22-2024 End: 01-22-2024 Bamboo flowsheet Naya Luke APPLICATION PACKAGER Work Phone: [facility] Start: 01-22-2024 End: 01-22-2024 Bamboo flowsheet Naya Luke APPLICATION PACKAGER Work Phone: [facility] Start: 01-22-2024 End: 01-22-2024 Clinisync Result Encounter Naya Butler APPLICATION PACKAGER Work Phone: [facility] External Department Unsolicited Start: 01-22-2024 End: 01-22-2024 Office outpatient visit 25 minutes Naya Butler APPLICATION PACKAGER Work Phone: [facility] Comment on above: Dizziness (Primary D x); Intracranial hypertension; Class 3 severe obesity due to excess calories with serious comorbidity and body mass index (BMI) of 45.0 to 49.9 in adult ([facility]); Encounter for medication monitoring Start: 01-22-2024 End: 01-22-2024 ambulatory NAYA BUTLER Not Available Start: 01-17-2024 End: 01-17-2024 Patient encounter procedure [facility] Work Phone: Start: 12-24-2023 End: 12-24-2023 ambulatory Alyssa Butterfield MD Work Phone: [facility] Work Phone: Start: 12-24-2023 End: 12-24-2023 Patient encounter procedure Alyssa Butterfield MD Work Phone: [facility] Work Phone: Start: 12-20-2023 Non-patient / Non-visit Alyssa Butterfield MD Work Phone: [facility] Work Phone: Start: 11-20-2023 End: 11-20-2023 Bamboo flowsheet Terrellopher Alex DO Work Phone: [employer] [facility] Start: 11-20-2023 End: 11-20-2023 Bamboo flowsheet Terrellopher Alex DO Work Phone: [employer] [facility] Start: 11-20-2023 End: 11-20-2023 Office outpatient visit 25 minutes Christopher Alex DO Work Phone: [employer] [facility] Comment on above: Intracranial hyperte nsion (Primary Dx); Dizziness; Class 3 severe obesity due to excess calories with serious comorbidity and body mass index (BMI) of 45.0 to 49.9 in adult ([facility]) Start: 11-20-2023 End: 11-20-2023 ambulatory BONNIE JOHNSON Not Available Start: 11-09-2023 End: 11-09-2023 Patient encounter procedure MD Alyssa Butterfield Work Phone: [facility] [place] Work Phone: Start: 11-09-2023 End: 11-09-2023 ambulatory MD Alyssa Butterfield Work Phone: [facility] Work Phone: Start: 10-23-2023 End: 10-23-2023 Clinisync Result Encounter Naya Butler NP Work Phone: [facility] Unsolicited Start: 10-23-2023 End: 10-23-2023 Clinisync Result Encounter Naya Butler APPLICATION PACKAGER Work Phone: [facility] Unsolicited Start: 10-22-2023 End: 10-22-2023 ambulatory MD Alyssa Butterfield Work Phone: [facility] Work Phone: Start: 10-22-2023 End: 10-22-2023 Patient encounter procedure MD Alyssa Butterfield Work Phone: [facility] Work Phone: Start: 10-18-2023 End: 10-18-2023 Telephone encounter Shima Vallecillo MA [facility] [place] [facility] Start: 10-16-2023 End: 10-16-2023 Telephone encounter Naya Butler APPLICATION PACKAGER Work Phone: [facility] [place] [facility] Start: 10-15-2023 End: 10-15-2023 ambulatory NAYA BUTLER Not Available Start: 10-15-2023 End: 10-15-2023 Office outpatient visit 25 minutes Naya Butler APPLICATION PACKAGER Work Phone: [facility] [place] [facility] Comment on above: Intracranial hyperte nsion (Primary Dx); Encounter for medication monitoring; Headache, unspecified headache type; Dizziness Start: 10-15-2023 End: 10-15-2023 Bamboo flowsheet Naya Butler APPLICATION PACKAGER Work Phone: [facility] [place] [facility] Start: 10-15-2023 End: 10-15-2023 Bamboo flowsheet Naya Butler APPLICATION PACKAGER Work Phone: [facility] [place] [facility] Start: 09-27-2023 End: 09-27-2023 ambulatory MD Alyssa Butterfield Work Phone: [facility] Work Phone: Start: 09-27-2023 End: 09-27-2023 Patient encounter procedure MD Alyssa Butterfield Work Phone: [facility] Work Phone: Start: 09-25-2023 End: 09-25-2023 Patient encounter procedure MD Alyssa Butterfield Work Phone: [facility] [place] Work Phone: Start: 09-25-2023 End: 09-25-2023 ambulatory MD Alyssa Butterfield Work Phone: [facility] Work Phone: Start: 09-06-2023 End: 09-06-2023 ambulatory MD Alyssa Butterfield Work Phone: [facility] Work Phone: Start: 09-06-2023 End: 09-06-2023 Patient encounter procedure MD Alyssa Butterfield Work Phone: [facility] Work Phone: Start: 08-29-2023 End: 08-29-2023 ambulatory BONNIE JOHNSON Not Available Start: 08-27-2023 End: 08-27-2023 ambulatory NAYA LUKE Not Available Start: 08-16-2023 End: 08-16-2023 ambulatory MD Alyssa Butterfield Work Phone: [facility] Work Phone: Start: 08-16-2023 End: 08-16-2023 Patient encounter procedure MD Alyssa Butterfield Work Phone: [facility] Work Phone: Start: 08-15-2023 End: 08-15-2023 Patient encounter procedure MD Alyssa Butterfield Work Phone: [facility] [place] Work Phone: Start: 08-15-2023 End: 08-15-2023 ambulatory MD Alyssa Butterfield Work Phone: [facility] Work Phone: Start: 08-13-2023 End: 08-13-2023 Emergency department patient visit ALYSSA BUTTERFIELD [facility] Start: 07-31-2023 End: 07-31-2023 ambulatory MD Alyssa Butterfield Work Phone: [facility] Work Phone: Start: 07-31-2023 End: 07-31-2023 Patient encounter procedure MD Alyssa Butterfield Work Phone: [facility] Work Phone: Start: 07-24-2023 End: 07-24-2023 ambulatory BONNIE BOUCHERETT Not Available Start: 06-28-2023 End: 06-28-2023 ambulatory MD Alyssa Butterfield Work Phone: [facility] Work Phone: Start: 06-28-2023 End: 06-28-2023 Patient encounter procedure MD Alyssa Butterfield Work Phone: [facility] Work Phone: Start: 06-27-2023 End: 06-27-2023 ambulatory ALEXANDER GEORGE Not Available Start: 06-20-2023 End: 06-20-2023 ambulatory MERISSA CRAFT Not Available Start: 06-08-2023 Non-patient / Non-visit MD Susanna Butterfield Work Phone: [facility] Work Phone: Start: 05-30-2023 End: 05-30-2023 ambulatory MD Alyssa Butterfield Work Phone: [facility] Work Phone: Start: 05-30-2023 End: 05-30-2023 Patient encounter procedure MD Alyssa Butterfield Work Phone: [facility] Work Phone: Start: 05-25-2023 End: 05-25-2023 ambulatory MD Alyssa Butterfield Work Phone: [facility] Work Phone: Start: 05-25-2023 End: 05-25-2023 Discharged Recurring MD Alyssa Butterfield Work Phone: [facility] Start: 05-25-2023 Registered Recurring MD Alyssa Butterfield Work Phone: [facility] Start: 04-30-2023 End: 04-30-2023 ambulatory MD Alyssa Butterfield Work Phone: [facility] Work Phone: Start: 04-30-2023 End: 04-30-2023 Patient encounter procedure MD Alyssa Butterfield Work Phone: [facility] Work Phone: Start: 04-25-2023 Registered Recurring MD Alyssa Butterfield Work Phone: [facility] Start: 04-18-2023 End: 04-18-2023 Patient encounter procedure MD Alyssa Butterfield Work Phone: [facility] Work Phone: Start: 04-16-2023 End: 04-16-2023 Patient encounter procedure MD Alyssa Butterfield Work Phone: [facility] Work Phone: Start: 03-13-2023 End: 03-13-2023 ambulatory Alyssa Butterfield Other [facility] Other Start: 03-13-2023 Telephone encounter Alyssa Butterfield [facility] Start: 03-08-2023 End: 03-08-2023 Patient encounter procedure MD Alyssa Butterfield Work Phone: [facility]- Start: 05-17-2022 End: 05-17-2022 ambulatory Alyssa Butterfield Other [facility] Other Start: 05-17-2022 Telephone encounter Alyssa Butterfield [facility] Start: 02-27-2022 End: 02-27-[address] RICCI MULLINS Facility:[facility] Start: 02-27-2022 Office outpatient vi sit 15 minutes Alyssa Butterfield [facility] Start: 02-16-2022 Gynecological examination normal Alyssa Butterfield Other [facility] Other Start: 01-23-2022 Adult health examination Rani Butterfield Other [facility] Other Start: 01-23-2022 Gynecological examination normal Alyssa Butterfield Other [place] Other Start: 09-06-2021 End: 09-06-[address] [...] Date Procedure Procedure Detail Performing Clinician Start: 05-15-2024 H/O: section Hx of section Fran Oseguera MD Work Phone: Start: 05-15-2024 Ecg routine ecg w/least 12 lds w/i&r Fran Oseguera MD Work Phone: Start: 03-06-2024 IGP,APTIMA HPV,AGE GDLN Ricci Mullins DO Work Phone: Start: 03-06-2024 Microscopic observation [Identifier] in Cervix by Cyto stain Yun Naranjo PT Work Phone: Start: 01-22-2024 ALL BASIC METABOLIC PANEL Naya Butler APPLICATION PACKAGER Work Phone: Start: 11-09-2023 MRI venography MD Alyssa Butterfield Work Phone: Start: 10-23-2023 CCF CMP (CMP) (FOR REMOTE [facility] USE) Naya Butler APPLICATION PACKAGER Work Phone: Start: 09-25-2023 Aerobic microbial culture Alyssa Vang Work Phone: Start: 09-25-2023 Anaerobic microbial culture Alyssa Butterfield MD Work Phone: Start: 09-25-2023 CSF (PCR) MD Alyssa Butterfield Work Phone: Start: 09-25-2023 CSF (PCR) Alyssa Butterfield MD Work Phone: Start: 09-25-2023 Gram stain microscopy Alyssa Butterfield MD Work Phone: Start: 09-25-2023 Investigation of transfusion reaction MD Alyssa Butterfield Work Phone: Start: 08-15-2023 MRI of head MD Alyssa Butterfield Work Phone: Start: 03-05-2023 Microscopic observation [Identifier] in Cervix by Cyto stain Ricci Mullins DO Work Phone: Start: 03-05-2023 Cytp cerv/vag auto thin layer prep mnl screen Ricci Mullins DO Work Phone: Start: 02-27-2022 Microscopic observation [Identifier] in Cervix by Cyto stain Naya Butler APPLICATION PACKAGER Work Phone: Start: 08-23-2021 Extraction of Products of Conception, Low Cervical, Open Approach DR RICCI MULLINS Start: 08-21-2021 Introduction of Hormone into Female Reproductive, Via Natural or Artificial Opening DR RICCI MULLINS Start: 10-19-2015 Venereal disease screening Alyssa Butterfield Other screening Alyssa fuentes Other End: 06-08-2021 screening Alyssa Butterfield Other Diabetes mellitus screening Alyssa Butterfield Other H/O: section Alyssa Butterfield Other visit Alyssa Butterfield Other Plan of Treatment Date Care Activity Detail Author Start: 02-27-2038 Zoster Vaccines (1 of 2) Zoster Vaccines (1 of 2) [facility] Start: 07-04-2031 DTaP/Tdap/Td Vaccines (3 - Td or Tdap) DTaP/Tdap/Td Vaccines (3 - Td or Tdap) [facility] Start: 03-05-2028 Screening for malignant neoplasm of cervix [facility] Start: 03-06-2027 Screening for malignant neoplasm of cervix [facility] Start: 02-27-2027 Screening for malignant neoplasm of cervix [facility] Start: 03-11-2025 End: 03-11-2025 Patient encounter procedure 03/11/2025 4:00 PM EST Office Visit [facility] [address] [place] [address] Ricci Mullins, [address] [place], [place] [id number] [facility] Start: 10-06-2024 Influenza vaccination Influenza Vaccine (Season Ended) [facility] Start: 08-21-2024 End: 08-21-2024 Patient encounter procedure 08/21/2024 1:00 PM EDT Office Visit [facility] [address] [facility] [address] [place] [address] Fran Oseguera MD [address] [facility] [address] [place] [address] [facility] Start: 07-23-2024 End: 07-23-2024 Patient encounter procedure 07/23/2024 7:45 AM EDT Appointment Marci [place] [address] Marci Alcazar Start: 05-28-2024 End: 05-28-2024 Patient encounter procedure 05/28/2024 2:30 PM EDT Appointment Marci [address] [place] [address] Marci Alcazar Start: 05-19-2024 End: 05-19-2024 Professional / ancillary services management 05/19/2024 8:00 AM EDT Ancillary Procedure Inge [address] [place] [address] [facility] Start: 05-15-2024 End: 05-15-2025 Alanine aminotransferase [Enzymatic activity/volume] in Serum or Plasma by With P-5'-P Alanine Aminotransferase Lab Routine Mixed hyperlipidemia Expected: 05/15/2024, Expires: 05/15/2025 [facility] Work Phone: Comment on above: Expected: 05/15/2024, Expires: Start: 05-15-2024 End: 05-15-2025 Aspartate aminotransferase [Enzymatic activity/volume] in Serum or Plasma by With P-5'-P Aspartate Aminotransferase Lab Routine Mixed hyperlipidemia Expected: 05/15/2024, Expires: 05/15/2025 [facility] Work Phone: Comment on above: Expected: 05/15/2024, Expires: Start: 05-15-2024 End: 05-15-2025 Cardiac stress study Procedure Stress Test Cardiac Services Routine SOB (shortness of breath) on exertion Lightheadedness Palpitations Near syncope Vertigo Expected: 05/15/2024 (Approximate), Expires: 05/15/2025 [facility] Work Phone: Comment on above: Expected: 05/15/2024 (Approximate), Expi res: 05/15/2025 Start: 05-15-2024 End: 05-15-2025 CBC panel - Blood by Automated count CBC Lab Routine Mixed hyperlipidemia SOB (shortness of breath) on exertion Lightheadedness Palpitations Near syncope Vertigo Expected: 05/15/2024, Expires: 05/15/2025 [facility] Work Phone: Comment on above: Expected: 05/15/2024, Expires: Start: 05-15-2024 End: 05-15-2025 Comprehensive metabolic 2000 panel - Serum or Plasma Comprehensive Metabolic Panel Lab Routine Mixed hyperlipidemia SOB (shortness of breath) on exertion Lightheadedness Palpitations Expected: 05/15/2024, Expires: 05/15/2025 [facility] Work Phone: Comment on above: Expected: 05/15/2024, Expires: Start: 05-15-2024 End: 05-15-2025 Holter monitor study Holter Or Event [place] Cardiac Services Routine Lightheadedness Palpitations Expected: 05/15/2024 (Approximate), Expires: 05/15/2025 [facility] Work Phone: Comment on above: Expected: 05/15/2024 (Approximate), Expi res: 05/15/2025 Start: 05-15-2024 End: 05-15-2025 Lipid 1996 panel - Serum or Plasma Lipid Panel Lab Routine Mixed hyperlipidemia Expected: 05/15/2024, Expires: 05/15/2025 [facility] Work Phone: Comment on above: Expected: 05/15/2024, Expires: Start: 05-15-2024 End: 05-15-2025 Thyrotropin [Units/volume] in Serum or Plasma Thyroid Stimulating Hormone Lab Routine SOB (shortness of breath) on exertion Lightheadedness Expected: 05/15/2024, Expires: 05/15/2025 [facility] Work Phone: Comment on above: Expected: 05/15/2024, Expires: Start: 05-15-2024 End: 05-15-2026 Tilt table study Tilt Table Cardiac Services Routine SOB (shortness of breath) on exertion Lightheadedness Palpitations Near syncope Vertigo Expected: 05/15/2024 (Approximate), Expires: 05/15/2026 [facility] Service Area Work Phone: Comment on above: Expected: 05/15/2024 (Approximate), Expi res: 05/15/2026 Start: 05-15-2024 End: 05-15-2026 Heart Transthoracic Transthoracic Echo Complete Echocardiography Routine SOB (shortness of breath) on exertion Vertigo Expected: 05/15/2024 (Approximate), Expires: 05/15/2026 [facility] Work Phone: Comment on above: Expected: 05/15/2024 (Approximate), Expi res: 05/15/2026 Start: 04-29-2024 End: 04-29-2024 Patient encounter procedure 04/29/2024 2:40 PM EDT Office Visit [facility] [place] [address] [place] [address] Naya Butler NP [address] [place] [phone] [facility] Start: 03-11-2024 End: 03-11-2024 Patient encounter procedure [facility] [place] [facility] Comment on above: Arrived Start: 03-06-2024 Patient referral [facility] Work Phone: Start: 03-06-2024 End: 03-06-2024 Patient encounter procedure [facility] Comment on above: Arrived Start: 02-05-2024 End: 02-05-2024 ambulatory 02/05/2024 8:30 AM EST Treatment [facility] [address] [place] [phone] Yun Naranjo, PT [address] [place] [address] [facility] Start: 01-23-2024 End: 01-23-2024 ambulatory 01/23/2024 7:30 AM EST Evaluation [facility] [address] [place] [phone] Yun Naranjo, PT [address] [place] [address] [facility] Start: 01-22-2024 End: 01-21-2025 Basic metabolic 1998 panel - Serum or Plasma Basic metabolic panel Lab Routine Encounter for medication monitoring Expected: 01/22/2024 (Approximate), Expires: 01/21/2025 [facility] Work Phone: Comment on above: Expected: 01/22/2024 (Approximate), Expi res: 01/21/2025 Start: 01-22-2024 End: 01-22-2024 Patient encounter procedure 01/22/2024 1:00 PM EST Office Visit [facility] [address] [place] [phone] Naya Butler NP [address] [place] [address] Arrived [facility] Comment on above: Arrived Start: 01-01-2024 Patient referral [facility] Work Phone: Start: 11-20-2023 End: 11-20-2023 Patient encounter procedure 11/20/2023 8:15 AM EDT Office Visit [facility] [place] [facility] [address] [place] [phone] Bonnie Johnson DO [address] [place], [place] [id number] Arrived [facility] [facility] Comment on above: Arrived Start: 11-19-2023 End: 11-19-2023 Patient encounter procedure 11/19/2023 12:15 PM EDT Office Visit [facility] [facility] [address] [place] [id number] Bonnie Johnson DO [address] [place], [place] [id number] [facility] Start: 10-16-2023 End: 10-14-2024 MRA Head vessels WO and W contrast IV MR venous head w and wo IV contrast Imaging Routine Intracranial hypertension Expected: 10/16/2023 (Approximate), Expires: 10/14/2024 [facility] Comment on above: Expected: 10/16/2023 (Approximate), Expi res: 10/14/2024 Start: 10-15-2023 End: 10-14-2024 Comprehensive metabolic 2000 panel - Serum or Plasma Comprehensive metabolic panel Lab Routine Encounter for medication monitoring Expected: 10/15/2023 (Approximate), Expires: 10/14/2024 [facility] Work Phone: Comment on above: Expected: 10/15/2023 (Approximate), Expi res: 10/14/2024 Start: 10-07-2023 COVID-19 Vaccine ( season) COVID-19 Vaccine () [facility] Start: 10-07-2023 Influenza vaccination Influenza Vaccine (#1) [facility] Start: 09-25-2023 CSF (PCR) CSF (PCR) [facility] Start: 09-25-2023 Microscopic observation [Identifier] in Unspecified specimen by Gram stain [facility] Start: 09-25-2023 End: 09-25-2023 [facility] Start: 09-25-2023 Cerebrospinal fluid culture [facility] Start: 06-28-2023 Patient referral [facility] Work Phone: Start: 05-07-2023 Diabetes mellitus screening Diabetes Screening [facility] Start: 04-16-2023 Patient referral [facility] Work Phone: Start: 02-27-2009 Screening for malignant neoplasm of cervix HPV/Cotest [facility] Start: 02-27-2007 Hepatitis B Vaccines (1 of 3 - 19+ 3-dose series) Hepatitis B Vaccines (1 of 3 - 19+ 3-dose series) [facility] Start: 02-27-2006 Hepatitis C screening Hepatitis C Screening [facility] Start: 02-27-2001 Varicella vaccination Varicella Vaccines (1 of 2 - 13+ 2-dose series) [facility] Start: 02-27-1989 MMR Vaccines (1 of 1 - Standard series) MMR Vaccines (1 of 1 - Standard series) [facility] Start: 1988 HIV screening HIV Screening [facility] Start: 1988 Lipid panel Lipid Panel [facility] Start: 1988 Yearly Adult Physical Yearly Adult Physical [facility] Bacteria identified in Unspecified specimen by Aerobe culture [facility] Bacteria identified in Unspecified specimen by Anaerobe culture [facility] Cell count, cerebros melinda fluid [facility] Cerebrospinal fluid examination [facility] Cytology Cervical or vaginal smear or scraping study Pap Smear Pathology and Cytology Routine Well woman exam with routine gynecological exam Ordered: 03/06/2024 [facility] Work Phone: Comment on above: Ordered: 03/06/2024 Evaluation of cerebrospinal fluid [facility] Fluid sample volume measurement [facility] Human papilloma viru s DNA [Presence] in Unspecified specimen by Probe with amplification HPV DNA probe, amplified Microbiology Routine Well woman exam with routine gynecological exam Ordered: 03/06/2024 [facility] Comment on above: Ordered: 03/06/2024 Meningitis+Encephali tis pathogens DNA and RNA panel - Cerebral spinal fluid by NIMA with non-probe detection [facility] Patient Education [facility] Lumb ar Puncture Discharge Instructions [facility] Work Phone: Patient referral [facility] Work Phone: [facility] Immunizations Immunization Date Immunization Notes Care Provider Braxton marcus 11-18-2022 influenza virus vaccine, unspecified formulation Naya Butler APPLICATION PACKAGER Work Phone: [facility] 12-10-2021 influenza virus vaccine, split virus (incl. purified surface antigen) Alyssa Buttefrield Other [facility] Other 12-10-2021 influenza virus vaccine, unspecified formulation MD Alyssa Butterfield Work Phone: [facility] 12-10-2021 Influenza, injectabl e, Madin Walston Canine Kidney, preservative free, quadrivalent Naya Butler APPLICATION PACKAGER Work Phone: [facility] 07-03-2021 tetanus toxoid, reduced diphtheria toxoid, and acellular pertussis vaccine, adsorbed Naya Butler APPLICATION PACKAGER Work Phone: [facility] 11-30-2020 COVID-19 mRNA-1273 (Moderna) MD Alyssa Butterfield Work Phone: [facility] 03-18-2020 COVID-19 mRNA-1273 (Moderna) MD Alyssa Butterfield Work Phone: [facility] 02-19-2020 COVID-19 mRNA-1277 (Moderna) MD Alyssa Butterfield Work Phone: [facility] 10-29-2018 influenza, injectabl e, quadrivalent, preservative free Naya Butler APPLICATION PACKAGER Work Phone: [facility] 12-29-2017 tetanus toxoid, reduced diphtheria toxoid, and acellular pertussis vaccine, adsorbed Naya Butler APPLICATION PACKAGER Work Phone: [facility] 11-09-2017 influenza, injectabl e, quadrivalent, preservative free Naya Butler APPLICATION PACKAGER Work Phone: [facility] 10-24-2016 influenza, injectabl e, quadrivalent, preservative free Naya Butler APPLICATION PACKAGER Work Phone: [facility] 11-03-2014 influenza, seasonal, injectable, preservative free Naya Butler APPLICATION PACKAGER Work Phone: [facility] 10-27-2013 tetanus and diphther ia toxoids, adsorbed, preservative free, for adult use (5 Lf of tetanus toxoid and 2 Lf of diphtheria toxoid) Alyssa Butterfield Other [facility] Payers Date Payer Category Payer Self-pay [id number] 2022 Managed Care (Private) [facility] [id number] 2022 Private Health Insurance [id number]. [id number] 1988 Unknown [id number] 2.16.840.1.416135.3.579.2. 593 1988 Unknown [id number] 2.16.840.1.953477.3.579.2. 593 1988 Unknown [id number] 2.16.840.1.908110.3.579.2. 593 1988 Unknown [id number] 2.16.840.1.655553.3.579.2. 593 1988 Unknown [id number] 2.16.840.1.480208.3.579.2. 593 1988 Unknown [id number] 2.16.840.1.670823.3.579.2. 593 1988 Unknown [id number] 2.16.840.1.707348.3.579.2. 593 1988 Unknown [id number] 2.16.840.1.940525.3.579.2. 593 1988 Unknown [id number] 2.16.840.1.548944.3.579.2. 593 1988 Unknown [id number] 2.16.840.1.854486.3.579.2. 593 1988 Unknown [id number] 2.16.840.1.852421.3.579.2. 593 1988 Unknown [id number] 2.16.840.1.163870.3.579.2. 1286 1988 Unknown [id number] 2.16.840.1.981815.3.579.2. 9 1988 Unknown [id number] 2.16.840.1.640433.3.579.2. 9 1988 Unknown [id number] 2.16.840.1.980656.3.579.2. 1258 1988 Unknown [id number] 2.16.840.1.542086.3.579.2. 1258 1988 Unknown [id number] 2.16.840.1.702508.3.579.2. 1258 1988 Unknown [id number] 2.16.840.1.817863.3.579.2. 1258 1988 Unknown [id number] 2.16.840.1.953330.3.579.2. 1258 1988 Unknown [id number] 2.16.840.1.459493.3.579.2. 1258 1988 Unknown [id number] 2.16.840.1.291084.3.579.2. 1258 1988 Unknown [id number] 2.16.840.1.473634.3.579.2. 1258 1988 Unknown [id number] 2.16.840.1.450164.3.579.2. 1258 1988 Unknown [id number] 2.16.840.1.415754.3.579.2. 1258 1988 Unknown [id number] 2.16.840.1.701656.3.579.2. 9 1959 Private Health Insurance [id number] 1959 Unknown [id number] 1959 Unknown [id number] Private Health Insurance [facility] [id number] Unknown [id number] Unknown [id number] 2.16.840.1.167970.3.579.2. 531 Unknown [id number] 2.16.840.1.526573.3.579.2. 531 Unknown [id number] 2.16.840.1.035169.3.579.2. 531 Unknown [id number] 2.16.840.1.342918.3.579.2. 531 Social History Date Type Detail Facility Unknown if ever smoked [facility] [employer] Other Start: 10-15-2023 End: 05-15-2024 Sex Assigned At [facility] [employer] Other Start: 03-08-2023 End: 05-15-2024 Tobacco smoking status NHIS Never smoked tobacco (finding) [facility] Start: 1990 Sex Assigned At Female F [facility] Start: 07-13-2022 End: 05-15-2024 Tobacco use and exposure Smokeless tobacco non-user [facility] Start: 10-15-2023 End: 05-15-2024 Alcoholic beverage intake Current drinker of alcohol (finding) [facility] Start: 10-15-2023 End: 05-15-2024 Alcoholic beverage intake [facility] Start: 06-28-2022 Education [facility] Start: 1990 Sex assigned at Not on file [facility] Start: 12-24-2023 End: 05-01-2024 Sex Female (finding) [facility] Start: 05-15-2024 Alcohol Comment rare [facility] Work Phone: Start: 05-05-2024 End: 05-15-2024 Exposure to SARS-CoV-2 (event) Not sure [facility] Clinical Notes 09-13-2020 to 05-15-2024 Fran Oseguera MD - 05/15/2024 1:00 PM EDTPatient InstructionsTelephone Encounter - Naya Butler NP - 04/01/2024 9:23 AM ESTTelephone Encounter - Naya Butler, APPLICATION PACKAGER - 04/01/2024 9:23 AM EST Note Date & Type Note Facility 05-15-2024 History of Presen t illness Narrative CARDIOLOGY CONSULTATION NOTE Patient: Rebecca White Date of : 1990 Date: 05/15/2024 REASON FOR CONSULT / CHIEF COMPLAINT: Dizziness, tachycardia, possible POTS IMPRESSION: Dizziness Tachycardia, sinus POTS, possible Childhood asthma Adrenal mass, resected, 2002 Carpal tunnel disease, bilateral repair 2022 Depression Herpes zoster Polycystic ovary syndrome D deficiency Idiopathic intracranial hypertension history COVID infection 2022 , 2021 Morbid obesity Otherwise as per assessment below. RECOMMENDATIONS: Patient has above-noted history and findings. Would suggest further cardiac evaluation to exclude symptoms related to possible POTS. The following testing is suggested: Tilt table study, echocardiogram, 48-hour Holter monitor, exercise pretravel stress test and laboratory studies as noted. Further recommendations were rendered following review. In the meantime would suggest trial of Toprol-XL 25 mg daily. Support stockings and avoidance of caffeine. Hydration was encouraged. Exercise dietary walking program. [employer] It [employer] Check portal use was encouraged. We will plan to see back following the above testing with Laboratory Studies and ECG as noted. Patient will follow up with their primary physician for general care. The patient knows to contact medical care earlier if need be. HPI: Rebecca White was seen in cardiac evaluation at the [facility] Cardiology office May 15, 2024. The patients problems are listed as in the impression above. Electronic medical records reviewed. The patient is a pleasant 34-year-old woman without prior cardiovascular history whom has had a 1 year history of lightheadedness, dyspnea on exertion and palpitations and presyncope without true syncope. She presents for cardiology consultation. This is her first visit. Patient has been seen by neurology and was thought to have intracranial hypertension and actually had drainage September 2023 with temporary relief. She was treated with Lasix at that time. She has recurrent symptoms. She has symptoms quite frequently. She does note dyspnea on exertion with stairs. She has had no chest pain. She has palpitations and lightheadedness after standing. She snores. She has vertigo-like symptoms as well. She has no other significant cardiovascular complaints. She has had no prior cardiovascular testing otherwise. Patient denies TIA or CVA symptoms. No CHF or Edema. No GI, or Bleeding Issues. No Recent Fever or Chills. Cardiovascular and general review of systems is otherwise negative. A 14-system review is otherwise negative, other than noted. ALLERGIES: No Known Allergies MEDICATIONS: Current Outpatient Medications Medication Instructions albuterol 2.5 mg, Every 6 hours PRN cholecalciferol (VITAMIN D-3) 2,000 Units, Daily RT cyanocobalamin (VITAMIN B-12) 1,000 mcg, Daily RT DROSPIRENONE, CONTRACEPTIVE, ORAL Drospirenone (Contraceptive) (Slynd) 4 mg (28) tablet Active 1 TAB PO Daily March 27, 2024 1:00am fexofenadine (RADHA) 180 mg, Daily RT fluticasone (Flonase) 50 mcg/actuation nasal spray 1 spray, Daily PRN furosemide (LASIX) 40 mg, Daily letrozole (Femara) 2.5 mg tablet Take by mouth. metFORMIN XR (GLUCOPHAGE-XR) 500 mg, 2 times daily ondansetron ODT (ZOFRAN-ODT) 4 mg, Every 8 hours PRN venlafaxine XR (EFFEXOR-XR) 37.5 mg, Daily venlafaxine XR (EFFEXOR-XR) 75 mg, Daily RT PAST MEDICAL HISTORY: As per impression above. No other significant past medical or surgical history appreciated. SOCIAL HISTORY: . 1 child. Works at [employer]. Stands much of the day. Never smoked. Occasional alcohol use. No illicit drug use. FAMILY HISTORY: Negative family history of CAD VITALS: Vitals: 05/15/24 1308 BP: 126/80 Pulse: 84 Wt Readings from Last 4 Encounters: 05/15/24 126 kg (278 lb) PHYSICAL EXAMINATION: General: No acute distress. Alert and oriented. Head And Neck Examination: No jugular venous distention, no carotid bruits, no mass. Carotid upstrokes preserved. Oral mucosa moist. No xanthelasma. Head and neck examination otherwise unremarkable. Lungs: Clear to auscultation and percussion. No wheezes, no rales, and no rhonchi. Chest: Excursion appeared to be normal. No chest wall tenderness on palpation. Heart: Normal S1 and S2. No S3. No S4. No rub. Grade 1/6 systolic murmur, best heard at the left sternal border. Point of maximal impulse was within normal limits. Abdomen: Soft. Nontender. No organomegaly. No bruits. No masses. Morbid obese. Extremities: No bipedal edema. No clubbing. No cyanosis. Pulses are strong throughout. No bruits. Musculoskeletal Exam: No ulcers, otherwise unremarkable. Neuro: Neurologically appeared grossly intact. ELECTROCARDIOGRAM: Sinus rhythm, rate 84. CARDIAC TESTING: None this visit. LABORATORY DATA: None this visit. Fran Oseguera MD, FACC [facility] / Cardiology Of Note: [employer] voice recognition dictation software was utilized partially in the preparation of this note, therefore, inaccuracies in spelling, word choice and punctuation may have occurred which were not recognized at the time of signing. Patient was seen and examined with total time of visit including chart preparation, rooming, and chart completion exceeding 40 minutes. ILana RN am scribing for, and in the presence of Dr. Fran [facility]guera MD, [facility]. I, Dr. Fran Oseguera MD, FACC, personally performed the services described in the documentation as scribed by Lana Miramontes RN in my presence, and confirm it is both accurate and complete. documented in this encounter [facility] Work Phone: 05-15-2024 Instructions Lana Lucero RN - 05/15/2024 1:00 PM EDT Please bring all medicines, vitamins, and herbal supplements with you when you come to the office. Prescriptions will not be filled unless you are compliant with your follow up appointments or have a follow up appointment scheduled as per instruction of your physician. Refills should be requested at the time of your visit. BMI was above normal measurement. Current weight: 126 kg (278 lb) Weight change since last visit (-) denotes wt loss 278 lbs Weight loss needed to achieve BMI 25: 128.1 Lbs Weight loss needed to achieve BMI 30: 98.1 Lbs Provided instructions on dietary changes Provided instructions on exercise. Hold toprol day before and day of tests Consider getting compression socks documented in this encounter [facility] Work Phone: 04-01-2024 Telephone encounter Note Received a message from vestibular therapy stating the patient does not seem very interested/committed to therapy. Previously, she received 1 session of therapy and stopped coming stating work schedule challenge. She was rescheduled this am and sent a text 20 min before visit claiming she had stomach ache. [facility] 04-01-2024 Miscellaneous Notes Received a message from vestibular therapy stating the patient does not seem very interested/committed to therapy. Previously, she received 1 session of therapy and stopped coming stating work schedule challenge. She was rescheduled this am and sent a text 20 min before visit claiming she had stomach ache. documented in this encounter [facility] 04-01-2024 History of Presen t illness Narrative Images from the original note were not included. Rebecca White [id number] 03/29/24 Subjective: Phone consult 04/26 34 yof sent to PT by Dr Butler for dizziness Off work since 02/10 because of dizziness, unsure of cause Previously treated in Dec: Only received 1 visit after eval and pt discontinued therapy because of work scheduling challenge Sometimes eyes/head spin and wobbly No specific time is worst head movements make it worse Hx of orthostatic bp several meds Hard to focus eyes especially when moving head Hearing seems fine ENT Dr George said its fine, hearing test ok Occasional tinnitus either ear Denies double vision Intracranial hypertenssion dx last August, drained spinal fluid and helped a lot got rid of pressure in head , Trying to lose weight but has not had success not working out, did purchase leg bike under desk but not usiing it much Drinking approx 40 oz water per day Poly Systic Ovarian syndrome makes losing wt a challenge per pt Diet not very structured, 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 pt cancelled 30 min before session stomach no doing well she was reminded of appt last night No show fee. Sent note to physician will not reschedule pt does not seem very interested/committed to therapy Previously: Objective/Examination: Vision/Ocular: Head alignment: Negative head tilt [...] head at arms length with [place] Markers Smooth Pursuit: Pass, Performed Monocularly Negative [...] dizzy with head movement Therapeutic Intervention: Evaluation Plan to Discuss exercise importance to reduce inflammation and improve function pt not exercising because its not helping with weight loss could not discuss today because pt cancelled 30 min before session Gentle rom neck/arms Postural balance Heat neck [...] medically necessary. Please sign below. Yun Naranjo, JimmiePT, OCS, COMT, AIB-VAM Director Vestibular Rehabilitation documented in this encounter [facility] 03-13-2024 Telephone encounter Note I reviewed. Thank you! [facility] 03-13-2024 Miscellaneous Notes I reviewed. Thank you! Routed to you and in Media. Referral placed. The patient calls in stating that she was told to continue her PT and her PT has . Needs a new order sent to [facility] PT. Requested. Can you please request record of the patient's most recent ophthalmology note for review? documented in this encounter [facility] 03-13-2024 Telephone encounter Note Routed to you and in Media. [facility] 03-13-2024 Telephone encounter Note Referral placed. [facility] 03-12-2024 Telephone encounter Note The patient calls in stating that she was told to continue her PT and her PT has . Needs a new order sent to [facility] PT. [facility] 03-12-2024 Telephone encounter Note Requested. [facility] 03-11-2024 Telephone encounter Note Can you please request record of the patient's most recent ophthalmology note for review? [facility] 03-06-2024 History of Presen t illness Narrative [...] nursing note reviewed. Exam conducted with a boilermaker welder present. Vitals: Estimated body mass index is [...] of a continuous control. Slynd sent to [facility] and patient given handout in regards to pharmacy information. Orders Placed This Encounter Procedures HPV DNA probe, amplified Follow Up: Patient is to return in one year for annual unless needed otherwise. Documented by Padmaja Astorga LPN on behalf of: Ricci Mullins DO documented in this encounter [facility] 02-14-2024 Evaluation note Diagnosis Onset Date Resolution Intracranial hypertension acute February 13 11:20am Sinusitis, acute maxillary acute February 13 11:20am Dizziness of unknown etiology acute February 25 9:58am Intracranial hypertension acute February 25 9:58am Intracranial hypertension acute March 06 9:23am Panic attacks acute February 9:23am Intracranial hypertension acute March 27, 025 9:23am Dizziness of unknown etiology acute May 01, 2024 2:47pm Intracranial hypertension acute May 01, 2024 2:47pm [facility] Work Phone: 1(679) 317-478512-31-2024 History of Present illness Narrative* Yun Naranjo, PT - 02/05/2024 8:30 AM EST Images from the original note were not included. Rebecca White [id number] 02/05/24 Subjective: Phone consult 01/21 33 yof [...] helped a lot, controlled with meds, and tryingto lose weight, difficult PCOS Occasional sinus headaches [...] head at arms length with [place] Markers Smooth Pursuit: Pass, Performed Monocularly Negative [...] Review hep Revise hep see attached Chin baylees yeny, vor standing Heat aerobics water Issue [...] AIB-VAM Director Vestibular Rehabilitation [id number] History of Present illness Narrative* Yun Naranjo, PT - 01/23/2024 7:30 AM EST Images from the original note were not included. Rebecca White [id number] 01/22/24 Subjective: Phone consult 01/21 33 yof [...] helped a lot, controlled with meds, and tryingto lose weight, difficult PCOS Occasional sinus headaches [...] head at arms length with [place] Markers Smooth Pursuit: Pass, Performed Monocularly Negative [...] AIB-VAM Director Vestibular Rehabilitation documented in this [facility]12-17-2024 Instructions* Patient Instructions* Naya Butler NP - 01/22/2024 1:00 PM EST - Referral to vestibular therapy ([facility]) - Check labs documented in this [facility]12-12-2024 Evaluation note* Diagnosis Onset Date Resolution Status Admit Date Anxiety acute January 17, 2024 3:29pm Intracranial hypertension acute January 17, 2024 3:29pm Sinusitis, acute maxillary acute January 17, 2024 3:29pm Intracranial hypertension acute February 14, 2024 11:20am Sinusitis, acute maxillary acute February 14, 2024 11:20am Dizziness of unknown etiology acute February 26, 2024 9:58am Intracranial hypertension acute February 26, 2024 9:58am Intracranial hypertension acute March 06, 2024 9:23am Panic attacks acute February 9:23am [facility] Work Phone: 1(537) 555-250711-18-2024 Evaluation note* Diagnosis Onset Date Resolution Status Admit Date Intracranial hypertension acute December 24, 2023 3:19pm PCOS (polycystic ovarian syndrome) acute December 23, 2 024 3:19pm Hand, foot and mouth disease inactiv e December 24, 2023 3:19pm Anxiety acute January 17, 2024 3:29pm Intracranial hypertension acute January 17, 2024 3:29pm Sinusitis, acute maxillary acute January 17, 2024 3:29pm [facility] Work Phone: 1(620) 190-974711-18-2024 Evaluation note* Diagnosis Onset Date Resolution Status [...] acute maxillary acute February 14, 2024 11:20am [facility] Work Phone: 1(655) 874-427311-18-2024 Evaluation note* Diagnosis Onset Date Resolution Status [...] 2024 9:58am Panic attacks acute February 9:23am [facility] Work Phone: 1(871) 333-319810-15-2024 History of Present illness Narrative* Bonnie Johnson, [...] Maternal Grandmother Darcy [place] Cancer Maternal Grandmother aDrcy [place] Uterine cancer Paternal Grandmother Kim Maya [...] wrist extensors , wrist flexor , and hand edge bander strength 5/5. LUE strength deltoid , biceps , triceps , wrist extensors , wrist flexor , and hand edge bander strength 5/5. RLE strength iliopsoas, quadriceps, tibialis [...] reflex 1+. LLE Knee reflex 1+. Coordination: Cjzmvn-nm-vzju testing normal. Rapid alternating movements are normal. Gait: Normal. Review and summary of old records: [place] [facility] No evidence of venous thrombosis. No acute intracranial pathology. Redemonstration of findings consistent with IH as seen on previous MRI. Laboratory evaluation on 10/23/2023: CMP is unremarkable. Specifically potassium is 3.8. Lumbar puncture (LP) at [facility] on 09/25/23: Opening pressure of 32 cm CSF. The patient denies any adverse effects to the LP. CSF on 09/25/23: CSF glucose 60, protein 23. Anaerobic culture no anaerobes isolated after 3 days. Aerobic culture no growth 2 days. Gram stain negative. PCR panel negative. I reviewed the patient's appointment note from [facility] on 09/03/23. Levi, ROYCE identified very mild sixth cranial nerve palsy with no visual field loss or disc edema. VNG at [facility] on 08/29/23: There is evidence of significant peripheral vestibular dysfunction. Positive Carla-Hallpike maneuver. This is suggestive of benign paroxysmal positional vertigo. There is also evidence of significant central vestibular dysfunction. MRI of the brain w and w/o contrast at [facility] on 08/15/23: There is flattening of the [...] an established patient at [facility] and plans to follow with them regularly [...] order to preservethis patient's visit in the manager long term care. Dizziness The patient reports episodic, provoked dizziness. [...] recommended to have a vestibular evaluation in [place], [place]. PLAN: - I reviewed VNG results [...] new or worsening symptoms. documented in this [facility]24 Telephone encounter Note* Telephone Encounter - Naya Butler NP - 10/18/2023 10:42 AM EDT Acknowledged. Thank you! [place] [id number] Miscellaneous Notes* Telephone Encounter - aNya Butler NP - 10/18/2023 10:42 AM EDT Acknowledged. Thank you! * Telephone Encounter - Shima Vallecillo MA - 10/18/2023 10:21 AM EDT Called PT to ask about the [place] request for Medical information from [facility], PT told me to disregard paperowrk as she is getting it filled out by her PCP. documented in this [facility]09-12-2024 Telephone encounter Note* Telephone Encounter - Shima Vallecillo MA - 10/18/2023 10:21 AM EDT Called PT to ask about the [place] request for Medical information from [facility], PT told me to disregard paperowrk as she is getting it filled out by her PCP. [place] [id number] Telephone encounter Note* Telephone Encounter - Naya Butler NP - 10/16/2023 6:05 PM EDT I will review this. Thank you! [id number] Miscellaneous Notes* Telephone Encounter - Naya Butler NP - 10/16/2023 6:05 PM EDT I will review this. Thank you! * Telephone Encounter - Naya Butler NP - 10/16/2023 9:55 AM EDT The patient states she had an eye exam at [facility] recently for IIH. Can you please request record of this for me to review? [id number] Telephone encounter Note* Telephone Encounter - Naya Butelr NP - 10/16/2023 9:55 AM EDT The patient states she had an eye exam at [facility] recently for IIH. Can you please request record of this for me to review? [id number] History of Present illness Narrative* Naya Butler [...] the labs completed because she states [facility] did not receive an order for them. She is taking acetazolamide 250 mg by mouth twice a day. Since starting acetazolamide, the patient reports multiple side effects including fatigue, nausea, a wflv-yik-hbppzkd sensation in the feet when attempting to [...] resolves. It is primarily triggered by quick kxgi-ek-xoof head movements. However, it canalso be provoked [...] to lights or sounds. She has tried tuik-gux-krjbsop medications for her headaches, and these provide [...] wrist extensors , wrist flexor , and hand edge bander strength 5/5. LUE strength deltoid , biceps , triceps , wrist extensors , wrist flexor , and hand edge bander strength 5/5. RLE strength iliopsoas, quadriceps, tibialis [...] reflex 1+. LLE Knee reflex 1+. Coordination: Aqzbjb-pn-gocy testing normal. Rapid alternating movements are normal. Gait: Normal. Review and summary of old records: Lumbar puncture (LP) at [facility] on 09/25/23: Opening pressure of 32 cm CSF. The patient denies any adverse effects to the LP. CSF on 09/25/23: CSF glucose 60, protein 23. Anaerobic culture no anaerobes isolated after 3 days. Aerobic culture no growth 2 days. Gram stain negative. PCR panel negative. I reviewed the patient's appointment note from [facility] on 09/03/23. Levi, OD identified very mild sixth cranial nerve palsy with no visual field loss or disc edema. VNG at [facility] on 08/29/23: There is evidence of significant peripheral vestibular dysfunction. Positive Carla-Hallpike maneuver. This is suggestive of benign paroxysmal positional vertigo. There is also evidence of significant central vestibular dysfunction. MRI of the brain w and w/o contrast at [facility] on 08/15/23: There is flattening of the [...] an established patient at [facility] and plans to follow with them regularly [...] recommended to have a vestibular evaluation in [place]. PLAN: - I reviewed VNG results [...] NP [facility] documented in this [facility] Instructions* Patient Instructions* Naya Butler NP - 10/15/2023 3:40 PM EDT - Stop acetazolamide - Start furosemide 20 mg by mouth once a day - Check labs documented in this [facility]08-20-2024 Evaluation note* Diagnosis Onset Date Resolution Status Admit Date Intracranial hypertension acute September 25, 2023 7:41am Headache acute September 26, 2 024 1:27pm Intracranial hypertension acute September 27, 2023 1:27pm Headache acute October 1:39pm Intracranial hypertension acute October 22, 2023 1:39pm [facility] Work Phone: 1(928) 604-432205-23-2024 Hospital Discharge instructionsAmbulatory Orders* Referral to Neurology Time Frame: 06/28/23, Location: None Selected [facility] Work Phone: 1(192) 700-146801-23-2023 Evaluation note* Encounter Date Diagnosis Assessment Notes Treatment Notes Treatment Clinical Notes Feb, Pain in right wrist (ICD-10 - M25.531) Feb, Pain in left wrist (ICD-10 - M25.532) [facility] Other 07-17-2022 NoteOPERATIVE NOTE OPERATION DATE: 08/22/2021 PROCEDURE: Primary low transverse section. PREOPERATIVE DIAGNOSIS: 1. Intrauterine at 40 and 5/7 days. 2. Failure to induce, Cervidil x2. POSTOPERATIVE DIAGNOSIS: 1. Intrauterine at 40 and 5/7 days. 2. Failure to induce, Cervidil x2. ANESTHESIA: Spinal with Duramorph. SURGEON: Ricci Mullins D.O. COMMUNITY HEALTH COUNSELOR: REG Marcus URINE OUTPUT: Yellow and clear. [...] patient's uterus and extended laterally digitally. The infant was then delivered atraumatically after the bladder [...] to the Recovery Room in stable condition. [facility] Signed and Approved by: DR RICCI MULLINS . 08/26/2021 08:15:00[facility]07-17-2022 NoteDISCHARGE SUMMARY DISCHARGE DATE: 09/09/2021 PRIMARY DIAGNOSES: [...] pain free and no longer on narcotics.[facility] [id number] NoteHNO ID: [id number] Author: Maurice Bonilla APRN.RN HEMODIALYSIS Service: ? Author Type: Nurse Practitioner Type: [...] Total Time Spent: 5 minutes Maurice Bonilla APRN.RN HEMODIALYSIS September 13, 2020 11:59 [facility] noteNo Information [facility] [place] Other Evaluation note* Diagnosis Onset Date Resolution Status Acute middle ear effusion ac [place] Vertigo acute Vertigo acute [facility] Work Phone: Evaluation note* Diagnosis Onset Date Resolution Status Acute middle ear effusion ac [place] Vertigo acute Vertigo acute Acute middle ear effusion ac [place] Vertigo acute [facility] Work Phone: Evaluation note* Diagnosis Onset Date Resolution Status Acute middle ear effusion ac [place] Vertigo acute Vertigo acute Acute middle ear effusion ac [place] Vertigo acute Vertigo acute Dizziness of unknown etiology acute [facility] Work Phone: Evaluation note* Diagnosis Onset Date Resolution Status Vertigo acute Dizziness of unknown etiology acute [facility] Work Phone: Evaluation note* Diagnosis Onset Date Resolution Status Vertigo acute Dizziness of unknown etiology acute Bronchitis acute [facility] Work Phone: Evaluation note* Diagnosis Onset Date Resolution Status Dizziness of unknown etiology acute Bronchitis acute Headache acute Intracranial hypertension ac [facility] Work Phone: Evaluation note* Diagnosis Onset Date Resolution Status Dizziness of unknown etiology acute Bronchitis acute Headache acute Intracranial hypertension [place] Anxiety acute Headache acute Intracranial hypertension ac [facility] Work Phone: Evaluation note* Diagnosis Onset Date Resolution Status Bronchitis acute Headache acute Intracranial hypertension ac [place] Anxiety acute Headache acute Intracranial hypertension [place] Intracranial hypertension ac [facility] Work Phone: Evaluation note* Diagnosis Onset Date Resolution Status Bronchitis acute Headache acute Intracranial hypertension ac [place] Anxiety acute Headache acute Intracranial hypertension [place] Intracranial hypertension ac [place] Headache acute Intracranial hypertension ac [facility] Work Phone: Evaluation note* Diagnosis Onset Date Resolution Status Headache acute Intracranial hypertension ac [place] Anxiety acute Headache acute Intracranial hypertension ac [place] Intracranial hypertension ac [place] Headache acute Intracranial hypertension ac [place] Headache acute Intracranial hypertension ac [facility] Work Phone: Evaluation note* Diagnosis Intracranial hypertension- Primary Benign intracranial hypertension Dizziness Dizziness and giddiness Class 3 severe obesity due to excess calories with serious comorbidity and body mass index (BMI) of 45.0 to 49.9 in adult ([facility]) documented in this encounter [facility]* Diagnosis Dizziness- Primary Dizziness and giddiness Intracranial hypertension Benign intracranial hypertension Class 3 severe obesity due to excess calories with serious comorbidity and body mass index (BMI) of 45.0 to 49.9 in adult ([facility]) Encounter for medication monitoring Encounter for therapeutic [...] Dizziness and giddiness documented in this encounter [facility]* Diagnosis Cervicalgia- Primary Vertigo of central origin Balance disorder documented in this encounter [facility]* Diagnosis Well woman exam with routine gynecological exam Routine gynecological examination control counseling documented in this encounter [facility]* Diagnosis Dizziness- Primary Dizziness and giddiness Intracranial hypertension Benign intracranial hypertension Class 3 severe obesity due to excess calories with serious comorbidity and body mass index (BMI) of 45.0 to 49.9 in adult ([facility]) Encounter for medication monitoring Encounter for therapeutic drug monitoring documented in this encounter [facility]* Diagnosis Dizziness- Primary Dizziness and giddiness documented in this encounter [facility]* Diagnosis Cervicalgia- Primary Vertigo of central origin documented in this encounter [facility]* Diagnosis Encounter to establish care Mixed hyperlipidemia SOB (shortness of breath) on exertion Shortness of breath Lightheadedness Dizziness and giddiness Palpitations Near syncope Vertigo Dizziness and giddiness Snoring Other dyspnea and respiratory abnormality Insulin resistance Other abnormal glucose PCOS (polycystic ovarian syndrome) Polycystic ovaries Family history of breast cancer Family history of malignant neoplasm of breast Adrenal mass 1 cm to 4 cm in diameter with no history of malignant neoplasm Anxiety Anxiety state, unspecified Vitamin D deficiency Hx of section BMI 45.0-49.9, adult (Multi) Never smoked tobacco Tachycardia Unspecified tachycardia documented in this encounter [facility] Work Phone: History general Narrative - Reported* Type Description Date Medical History BMI 40.0-44.9, adult Medical History PCOS (polycystic ovarian syndrom e) Medical History Amenorrhea, secondary Medical History Bronchitis Medical History Depression Surgical History ADRENALECTOMY, TOTAL, LEFT / 014 Hospitalization History [facility] Narrative - Reported* Type Description Date Medical History BMI 40.0-44.9, adult Medical History PCOS (polycystic ovarian syndrom e) Medical History Amenorrhea, secondary Medical History Bronchitis Medical History Depression Surgical History ADRENALECTOMY, TOTAL, LEFT 05/07 014 Surgical History Carpal tunnel bilateral 06/2022 Hospitalization History [facility] [place] [facility] Other Hospital Discharge instructionsAmbulatory Orders* Referral to Psychiatry Time Frame: 03/06/24, Location: [facility] Work Phone: Reason for visit Narrative* Rehabilitation - Outpatient (Routine) - Pending Review Specialty Diagnoses / Procedures Referred By Harry bernard Referred To Contact Physical Therapy Diagnoses Dizziness Procedures LA OFFICE/OUTPATIENT [facility] Naya Inman NP [address] [place] [phone] Phone: tel: Yun Naranjo, PT [address] [place] [address] Phone: tel: fax: Referral ID Status Reason Start Date Expiration Date Visits Requested Visits Authorized [id number] Pending Review Consult and Treat 4 07/20/2024 1 1 [facility] Narrative* Rehabilitation - Outpatient (Routine) - Authorized Specialty Diagnoses / Procedures Referred By Harry bernard Referred To Contact Physical Therapy Diagnoses Dizziness Procedures LA OFFICE/OUTPATIENT [facility] Naya Inman NP [address] [place] [phone] Phone: tel: Yun Naranjo, PT [address] [place] [address] Phone: tel: fax: Referral ID Status Reason Start Date Expiration Date Visits Requested Visits Authorized [id number] Authorized Consult and Treat 01/22/2024 02/05/2024 40 40 [facility] HealthcareReason for [facility] Narrative* Rehabilitation - Outpatient (Routine) - Pending Review Specialty Diagnoses / Procedures Referred By Harry t Referred To Contact Physical Therapy Diagnoses Dizziness Procedures LA OFFICE/OUTPATIENT NEW HIGH MDM 60 MINUTES Naya Butler, LESLIE [address] [place] [phone] Phone: tel: Yun Naranjo, PT [address] [place] [address] Phone: tel: Referral ID Status Reason Start Date Expiration Date Visits Requested Visits Authorized [id number] Pending Review Consult and Treat 03/13/2024 09/09/2024 1 1 [facility] Summary Purpose Family History Relationship Condition Age at Onset Recorded Date/T morgan father Diabetes mellitus Unknown Alcoholism Unknown Advance Directives Advance Directive Response Recorded Date/ Time Advance Directives No October 8:34am Advance Directive Response Recorded Date/ Time Advance Directives No October 7:34am Reason for Referral Reason 03/16/22 lena off ice Diagnosis 1 Pain in right wrist (M25.531) Referral Organization [facility] naveen Referring Provider First Name Alyssa Referring Provider Last Name Brady Referring Provider Specialty Family [facility] Referred Organization [facility] Referred Provider Alaina,James Referred Address ,[place], [place],[address] Referred Provider Specialty Orthopedic S urgery Referral [...] time. Specialty Diagnoses / Procedures Referred By Harry bernard Referred To Contact Radiology Diagnoses Intracranial hypertension Procedures MR venous head w and wo IV contrast Naya Bulter NP [address] [place] [address] [facility] Scheduling [address] [place] [address] Referral ID Status Reason Start Date Expiration Date V isits Requested Visits Authorized [id number] Pending Review 10/16/2023 04/13/2024 1 1 Chief [...] for Visit Admit Date Intracranial hypertension September 24, 2 024 7:41am Headache September 27, 2023 1: 27pm Intracranial hypertension September 26, 2 024 1:27pm Headache October 22, 2023 1:39pm [...] Panic attacks March 06, 2024 9 :23am Chief Complaint Admit Date FMLA Paperwork-HIGH RISK January 17, 2024 3:29pm Sinus infection/dizziness February 13, 2 025 11:20am work accommodations February 26, 2024 9 :58am FMLA-HIGH RISK March 06, 2024 9 :23am FMLA Paperwork-HIGH RISK March 27, 2024 9:23am Reason for Visit Admit Date Anxiety January 17, 2024 3:29pm Intracranial hypertension January 17, 2024 3:29pm Sinusitis, acute maxillary January 3:29pm Intracranial hypertension February 13 025 11:20am Sinusitis, acute maxillary February 14, 2024 11:20am Dizziness of unknown etiology February 252024 9:58am Intracranial hypertension February 26, 2024 9:58am Intracranial hypertension March 06, 2024 9:23am Panic attacks March 06, 2024 9 :23am Chief Complaint Admit Date Sinus infection/dizziness February 13 025 11:20am work accommodations February 26, 2024 9 :58am FMLA-HIGH RISK March 06, 2024 9 :23am FMLA Paperwork-HIGH RISK March 27, 2024 9:23am FMLA/Sick-HIGH RISK May 01, 2024 2:4 7pm Reason for Visit Admit Date Intracranial hypertension February 13 025 11:20am Sinusitis, acute maxillary February 14, 2024 11:20am Dizziness of unknown etiology February 252024 9:58am Intracranial hypertension February 26, 2024 9:58am Intracranial hypertension March 06, 2024 9:23am Panic attacks March 06, 2024 9 :23am Intracranial hypertension March 27, 2024 9:23am Dizziness of unknown etiology April 2:47pm Intracranial hypertension May 01 2:47pm Additional Source Comments INFORMATION SOURCE (unrecogn ized section and content) DATE CREATED AUTHOR 07/26/2017 [facility] DATE CREATED AUTHOR AUTHOR'S ORGANIZ ATION 02/24/2021 [facility] DATE CREATED AUTHOR AUTHOR'S ORGANIZ ATION 03/04/2022 [facility] DATE CREATED AUTHOR AUTHOR'S ORGANIZ ATION 08/21/2023 [facility] DATE CREATED AUTHOR AUTHOR'S ORGANIZ ATION 11/18/2023 [facility] DATE CREATED AUTHOR AUTHOR'S ORGANIZ ATION 04/30/2024 [facility] d[facility] Specialists EPIC REASON FOR VISIT (unrecogniz ed section and content) Reason Comments Dizziness Headache Reason Comments Headache Reason Comments [facility] Visit Reason Comments Dizziness Headache Reason Onset Date Comments Ophtho note 03/11/2024 Reason Comments New Patient Visit For dizziness and po ts testing Specialty Diagnoses / Procedures Referred By Contelsy t Referred To Contact Diagnoses Encounter to establish care Procedures ECG 12 Lead Fran Oseguera MD [address] [facility] [address] [place] [address] Phone: tel: fax: Referral ID Status Reason Start Date Expiration Date V isits Requested Visits Authorized [id number] Authorized 05/15/2024 05/15/2025 1 1 Care Teams (unrecognized sec tion and content) Team Status: Active Member Role Status Dates Alyssa Butterfield MD Primary Care Provider Active Team Status: Inactive Member Role Status Enrique [...] February 26, 2024 End: February 26, 2024 Team Status: Inactive Member Role Status Enrique Butterfield MD Primary Care Provide r, Attending Provider Active Start: March 06, 2024 End: March 06, 2024 Team Status: Inactive Member Role Status Enrique Butterfield MD Primary Care Provide r, Attending Provider Active Start: March 27, 2024 End: March 27, 2024 Team Status: Active Member Role Status Enrique Butterfield MD Primary Care Provide r, Attending Provider Active Start: December 20, 2023 Team Status: Inactive Member Role Status Enrique Butterfield MD Primary Care Provide r, Attending Provider Active Start: December 24, 2023 End: December 24, 2023 Team Status: Inactive Member Role Status Enrique Butterfiled MD Primary Care Provide r, Attending Provider Active Start: June 28, 2023 End: June 28, 2023 Team Status: Inactive Member Role Status Enrique Butterfield MD Primary Care Provide r, Attending Provider Active Start: July 31, 2023 End: July 31, 2023 Team Status: Inactive Member Role Status Enrique Butterfield MD Primary Care Provider Active Start: [...] Role Status Enrique Butterfield MD Primary Care Provider Active Start: September 25, 2023 End: September 25, 2023 Naya Butler APRN-BOTTOMING ROOM SUPERVISOR-C Attending Provider Active Start: September 25, 2023 End: September 25, 2023 Team Status: Active Member Role Status Enrique Butterfield MD Primary Care Provider Active Start: June 08, 2023 VERENICE Lawrence Attending Provider Active Start : June 08, 2023 Team Status: Inactive Member Role Status Enrique Butterfield MD Attending Provider Active St art: [...] 09, 2023 End: November 09, 2023 Naya Butler APRN-BOTTOMING ROOM SUPERVISOR-C Attending Provider Active Start: November 09, 2023 End: November 09, 2023 Sound Engineering Technician Relationship Specialty Start Date End Date Alyssa Butterfield MD [address] [facility], [place] [phone] PCP - General Family Medicine 06/27/22 Sound Engineering Technician Relationship Specialty Start Date End Date Alyssa Butterfield MD [address] [facility], [place] [phone] PCP - General Family Medicine 06/27/22 Sound Engineering Technician Relationship Specialty Start Date End Date Alyssa Butterfield MD [address] [facility], [place] [phone] PCP - General Family Medicine 06/27/22 Sound Engineering Technician Relationship Specialty Start Date End Date Alyssa Butterfield MD [address] [facility], [place] [phone] PCP - General Family Medicine 06/27/22 Sound Engineering Technician Relationship Specialty Start Date End Date Alyssa Butterfield MD [address] [facility], [place] [phone] PCP - General Family Medicine 06/27/22 Sound Engineering Technician Relationship Specialty Start Date End Date Alyssa Butterfield MD [address] [facility] [place] [address] PCP - General Family Medicine 06/27/22 Sound Engineering Technician Relationship Specialty Start Date End Date Alyssa Butterfield MD [address] [facility] [place] [phone] PCP - General Family Medicine 06/27/22 Sound Engineering Technician Relationship Specialty Start Date End Date Alyssa Butterfield MD [address] [facility], [place] [phone] PCP - General Family Medicine 06/27/22 Sound Engineering Technician Relationship Specialty Start Date End Date Alyssa Butterfield MD [address] [facility], [place] [phone] PCP - General Family Medicine 06/27/22 Sound Engineering Technician Relationship Specialty Start Date End Date Alyssa Butterfield MD [address] [facility], [place] [phone] PCP - General Family Medicine 06/27/22 Sound Engineering Technician Relationship Specialty Start Date End Date Alyssa Butterfield MD [address] [facility], [place], [place] [id number] PCP - General Family Medicine 06/27/22 Bonnie Johnson DO [address] [place] [address], [place] [id number] Referring Physician Neurology 03/11/24 Sound Engineering Technician Relationship Specialty Start Date End Date Alyssa Butterfield MD [address] [facility], [place] [id number] PCP - General Family Medicine 06/27/22 Bonnie Johnson DO [address] [address] Referring Physician Neurology 03/11/24 Sound Engineering Technician Relationship Specialty Start Date End Date Alyssa Butterfield MD [address] [place] [phone] PCP - General Family Medicine 06/27/22 Bonnie Johnson DO [address] [address] Referring Physician Neurology 03/11/24 Sound Engineering Technician Relationship Specialty Start Date End Date Alyssa Butterfield MD [address] [place] [phone] PCP - General Family Medicine 06/27/22 Bonnie Johnson DO [address] [address] Referring Physician Neurology 03/11/24 Sound Engineering Technician Relationship Specialty Start Date End Date Alyssa Butterfield MD [address] [place] [address] PCP - General Family Medicine 06/27/22 Bonnie Johnson DO [address] [address] Referring Physician Neurology 03/11/24 Team Status: Inactive Member Role Status Dates Alyssa Butterfield MD Primary Care Provide r, Attending Provider Active Start: May 01, 2024 End: May 01, 2024 Sound Engineering Technician Relationship Specialty Start Date End Date Alyssa Butterfield MD [address] [place] [address] PCP - General Family Medicine 05/15/24 Goals (unrecognized section and content) Goals may [...] BE BASED ON THE PRIMARY CLINICAL RECORDS. [employer] provides no warranty or guarantee of the accuracy or completeness of information in this document.
[2024-05-17 09:12] LABS: Basophils Absolute Auto 0.1 10^3/uL (0.0-0.1); Basophils Percent Auto 0.9 % (0.2-2.0); Eosinophils Absolute Auto 0.3 10^3/uL (0.0-0.7); Eosinophils Percent Auto 3.3 % (0.9-7.0); Hematocrit 42.2 % (36.0-48.0); Hemoglobin 13.8 g/dL (12.0-16.0); Immature Granulocytes Abs Auto 0.03 10^3/uL (0.00-0.03); Immature Granulocytes Pct Auto 0.4 % (0.0-0.5); Lymphocytes Absolute Auto 2.8 10^3/uL (1.2-3.8); Lymphocytes Percent Auto 35.1 % (20.5-60.0); Mean Corpuscular HGB Conc 32.7 g/dL (29.9-35.2); Mean Corpuscular Hemoglobin 28.6 pg (26.7-34.0); Mean Corpuscular Volume 87.6 fL (81.0-99.0); Mean Platelet Volume 9.7 fL (9.5-13.5); Monocytes Absolute Auto 0.6 10^3/uL (0.3-0.8); Monocytes Percent Auto 7.6 % (1.7-12.0); Neutrophils Absolute Auto 4.2 10^3/uL (1.4-6.5); Neutrophils Percent Auto 52.7 % (43.0-75.0); Platelet Count 332 10^3/uL (150-450); Red Blood Count 4.82 10^6/uL (4.20-5.40); Red Cell Distribution Width 14.6 % (11.0-15.0); White Blood Count 7.9 10^3/uL (4.0-11.0)
[2024-05-17 10:20] LABS: Alanine Aminotransferase 45 U/L (14-59); Aspartate Amino Transferase 37 U/L (15-37); Chol HDL Ratio 4.5; Cholesterol 207 mg/dL (<=200); HDL Cholesterol 46 mg/dL (40-60); Thyroid Stimulating Hormone 4.116 uIU/mL (0.358-3.740); Triglycerides 199 mg/dL (<=150); VLDL CHOLESTEROL 39.8 mg/dL
[2024-05-17 10:56] LABS: Anion Gap 14.1; Aspartate Amino Transferase 35 U/L (15-37); BUN Creatinine Ratio 11.2; Bilirubin Total 0.5 mg/dL (0.2-1.0); Calcium 8.9 mg/dL (8.5-10.1); Carbon Dioxide 25.8 mmol/L (21.0-32.0); Chloride 103 mmol/L (98-107); Estimated GFR (African America >60 (>=60 mL/min/1.73m^2); Estimated GFR (Non-African Ame >60 (>=60 mL/min/1.73m^2); Glucose 100 mg/dL (74-106); Potassium 3.9 mmol/L (3.5-5.1); Sodium 139 mmol/L (136-145)
[2024-05-17 10:57] LABS: Alanine Aminotransferase 46 U/L (14-59); Albumin Globulin Ratio 1.1; Albumin Level 3.4 g/dL (3.4-5.0); Alkaline Phosphatase 69 U/L (46-116); Globulin 3.2 g/dL; Total Protein 6.6 g/dL (6.4-8.2)
== END 2024-05-17 08:21 | disposition home or self-care (01) ==
PROVIDERS: PCP Family Medicine
DX: E78.2 Mixed hyperlipidemia (principal); R06.02 Shortness of breath; R42 Dizziness and giddiness; G93.2 Benign intracranial hypertension; R53.83 Other fatigue; R00.2 Palpitations; R55 Syncope and collapse
CPT/HCPCS: 36415; 80053; 80061; 84439; 84443; 84450; 84460; 85025; 86376; 86800

== ENCOUNTER 2024-05-17 08:28 | Outpatient (OUT) | payer OTHER, SELFPAY ==
--- OUTSIDE RECORDS SUMMARY | 2024-05-17 08:32 | XMS_ITS | CCD ---
Author Organization [facility] [employer]ini[employer] Care Team Providers Care Call Center Operations Manager Name Role Phone HARVINDER COLLINS Unavailable Unavailable HARVINDER COLLINS Unavailable Unavailable MISC, DOCTOR Unavailable Unavailable HARVINDER COLLINS Unavailable Unavailable HARPREET, DR HAYNES Attending Unavailable BUTTERFIELD, DR ALYSSA Francois Primary Care Unavailable DODGEVILLE, DR KULWINDER Lin Consulting Unavailable HARPREET, DR [...] BUTTERFIELD, DR ALYSSA Francois Primary Care Unavailable DODGEVILLE, DR KULWINDER Lin Consulting Unavailable HARPREET, DR HAYNES Consulting Unavailable Alyssa Butterfield Unavailable MD Alyssa Butterfield Primary Care Provider MD Alyssa Butterfield Attending Provider MD Alyssa Butterfield Primary Care Provider MD Alyssa Butterfield Attending Provider ALYSSA BUTTERFIELD Primary Care Unavailable DO Bonnie Johnson Attending Provider [phone] MD Alyssa Butterfield Primary Care Provider Luke, SYSTEM PLANNING ENGINEER-IRON ASSORTER-C Naya Francois Attending Provider Naya Butler Admitting [...] Alyssa Butterfield MD Primary Care Provider Butler SYSTEM PLANNING ENGINEER-IRON ASSORTER-C, Naya Francois Attending Provider Bonnie Johnson DO Unavailable [phone] RICCI MULLINS Attending Unavailable NAYA BUTLER Attending [...] physicia Propensity to adverse reactions 9 Comment:Done [employer] Other (1 source) Allergies Reconciled Propensity to adverse reactions Unknown [employer] Other Medications Current Medications Medication Drug Class(es) [...] Start: 05-22-2023 take 1 capsule by mo [facility] once daily venlafaxine XR (Effexor-XR) 75 mg 24 hr capsule Take 1 capsule (75 mg) by mouth once daily. 05/22/2023 Active Start: 04-13-2023 End: 03-06-2024 take 1 capsule by mouth once daily Venlafaxine 37.5 mg capsule,extended release 24hr Discontinued 75 MG PO Daily July 31, 2023 3:29pm March 06, 2024 10:47am take 1 capsule by [facility] every twenty-four hours Effexor XR 37.5 [...] (BMI) of 45.0 to 49.9 in adult ([facility])] 11-20-2023 Chronic Other nutritional; endocrine; and metabolic [...] Leadon 05-16-2024 Sinus rhythm, rate 84. CP [facility] Work Phone: IGP,APTIMA HPV,AGE GDLNon AGE GDLN ACOG TESTING Note . [facility] Comment on above: TESTS RESULT FLAG UN ITS REF RANGE LAB Clinician Provided Cytology Information Source.............Cervix;Endocervix No. of containers..01 ThinPrep Vial Age [place] ANG Mary... FLAG LEGEND: L-Low Normal,H-High Normal,LL-Alert Low,HH-Alert High <-Panic Low,>-Panic High,A-Abnormal,AA-Critical Abnormal Performed at: 01 =[address] [id number] Anaid Hercules MD, HPV APTIMA Negative Negative [facility] Comment on above: This nucleic acid am plification test detects fourteen high- risk HPV types (16,18,31,33,35,39,45,51,52,56,58,59,66,68) without differentiation. Performed at: =[address] [id number]: Anaid Hercules MD, Phone: [phone] Performed at: [address] [id number]: Anaid Hercules MD, Phone: [phone] IGP, APTIMA HPV, RFX 16/18,45 Note . [facility] Comment on above: TESTS RESULT FLAG UN ITS REF RANGE LAB DIAGNOSIS: 02 NEGATIVE FOR INTRAEPITHELIAL LESION OR MALIGNANCY. Specimen adequacy: 02 Satisfactory for evaluation. Endocervical and/or squamous metaplastic cells (endocervical component) are present. Performed by: 02 Asael Carlos, Hairspring Vibrator (ASCP) . 02 Note: Note 02 The [...] <-Panic Low,>-Panic High,A-Abnormal,AA-Critical Abnormal Performed at: [address] [phone] Anaid Hercules MD, BRUSH-SPATULA CERVIX ENDOCERVIX [facility] ALL BASIC METABOLIC PANELon 01-22-2024 Anion gap [Moles/Vol] 13.7 mmol/L NO [facility] Calcium [Mass/Vol] 8.8 mg/dL 8.5 - 10. 1 mg/dL [facility] Chloride [Moles/Vol] 105 mmol/L 98 - 10 7 mmol/L [facility] CO2 [Moles/Vol] 27.2 mmol/L 21.0 - 32.0 mmol/L [facility] Creatinine [Mass/Vol] 0.85 mg/dL 0.55 - 1.02 mg/dL [facility] GFR/1.73 sq M.predicted CKD-EPI (S/P/Bld) [Vol rate/Area] >60 >=60 mL/min/1.73 m 2 [facility] Glucose [Mass/Vol] 81 mg/dL 74 - 106 mg/dL [facility] Potassium [Moles/Vol] 3.9 mmol/L 3.5 - 5.1 mmol/L [facility] Sodium [Moles/Vol] 142 mmol/L 136 - 145 mmol/L [facility] TBH EGFR-NON AF MONTENEGRIN >60 >=60 mL/min/1.73 m 2 [facility] Urea nitrogen [Mass/Vol] 9 mg/dL 7.0 - 18.0 mg/dL [facility] Urea nitrogen/Creatinine [Mass ratio] 10.6 mg/mg [facility] MR venography head wo conon 11-09-2023 MR venography head wo con [facility] [place] [address] MRI Report Signed Patient: Rebecca White MR#: [id number] 38 : 1990 Acct:[id number] Age/Sex: 33 / F ADM Date: 11/09/23 Loc: MR Room: Type: [facility] Attending Dr: Naya JUÁREZ Copies to: [...] Manjeet Sargent M.D.11/09/2023 9:34 AM Dictation Location: [place] [address] Transcribed By: [facility] 11/09/2334 Dictated By: Manjeet Sargent II, MD 11/09/23917 Signed By: 11/09/23933 Normal [facility] CMP (CMP) (FOR REMOTE FH C USE)on 10-23-2023 Albumin [Mass/Vol] 3.1 g/dL Low 3.4 - 5.0 g/dL [facility] ALBUMIN GLOBULIN RATIO 0.8 NO [facility] ALP [Catalytic activity/Vol] 66 U/L 46 - 116 U/L [facility] ALT [Catalytic activity/Vol] 38 U/L 14 - 59 U/L [facility] Anion gap [Moles/Vol] 10.5 mmol/L NO [facility] AST [Catalytic activity/Vol] 25 U/L 15 - 37 U/L [facility] Bilirubin [Mass/Vol] 0.4 mg/dL 0.2 - 1 .0 mg/dL [facility] Calcium [Mass/Vol] 8.7 mg/dL 8.5 - 10. 1 mg/dL [facility] Chloride [Moles/Vol] 100 mmol/L 98 - 10 7 mmol/L [facility] CO2 [Moles/Vol] 30.3 mmol/L 21.0 - 32.0 mmol/L [facility] Creatinine [Mass/Vol] 0.76 mg/dL 0.55 - 1.02 mg/dL [facility] GFR/1.73 sq M.predicted CKD-EPI (S/P/Bld) [Vol rate/Area] >60 60 - PINF [facility] Globulin (S) [Mass/Vol] 4.1 g/dL N [facility] Glucose [Mass/Vol] 78 mg/dL 74 - 106 mg/dL [facility] Interpretation and review of laboratory results Abnormal [facility] Potassium [Moles/Vol] 3.8 mmol/L 3.5 - 5.1 mmol/L [facility] Protein [Mass/Vol] 7.2 g/dL 6.4 - 8.2 g/dL [facility] Sodium [Moles/Vol] 137 mmol/L 136 - 145 mmol/L [facility] TBH EGFR-NON AF MONTENEGRIN >60 60 - PINF [facility] Urea nitrogen [Mass/Vol] 12.0 mg/dL 7.0 - 18.0 mg/dL [facility] Urea nitrogen/Creatinine [Mass ratio] 15.8 mg/mg [facility] Aerobic Cultureon 09-25-2023 Aerobic Culture Comment Aerobic/anaerobic No Growth 2 Days Comment Aerobic/anaerobic No Anaerobes Isolated 3 Days Comment Aerobic/anaerobic Gram Stain Result No Bacteria Seen No White Blood Cells Seen No Red Blood Cells Seen PERFORMED BY: [facility] [address] [place] [address] PATHOLOGIST CONSERVATION COORDINATOR KELLY WIGGINS M.D. Normal [facility] Comment on above: Performed By: #### C SF TP, CSF PCR PANEL, CSFCCDIFF #2, GS, CSF GLU, AERC ####[facility] [id number] Aerobic cultureOrdered By: Ana Butler on 09-25-2023 Bacteria identified Aer cx Nom (Unsp spec) Aerobic culture [facility] Anaerobic cultureOrdered By: Naya Butler on 09-25-2023 Bacteria identified Anaer cx Nom (Unsp spec) Anaerobic culture [facility] CSF PCR Panelon 09-25-2023 CSF PCR Panel [...] Varicella zoster virus Not detected PERFORMED BY: [place] [address] PATHOLOGIST CONSERVATION COORDINATOR KELLY WIGGINS M.D. Normal [facility] Comment on above: Performed By: #### C SF TP, CSF PCR PANEL, CSFCCDIFF #2, GS, CSF GLU, AERC #### [address] Cell Count Differential,CSFo n 09-25-2023 Appearance, CSF Clear Normal Clear [facility] Comment on above: Order Comment: Comme nt tube 1 Performed By: #### C SFCCDIFF #### [address] Color, CSF Colorless Normal Colorless [facility] Comment on above: Order Comment: Comme nt tube 1 Performed By: #### C SFCCDIFF #### [address] CSF Supernatant Color Colorless Normal Colorless [facility] Comment on above: Order Comment: Comme nt tube 1 Performed By: #### C SFCCDIFF #### [address] CSF Volume, Total 33.5 mL Normal [facility] Comment on above: Order Comment: Comme nt tube 1 Performed By: #### C SFCCDIFF #### [address] Lymphocytes, CSF 6 Normal [facility] Comment on above: Order Comment: Comme nt tube 1 Result Comment: The reference interval and other method performance specifications have not been established for this body fluid. The test result must be integrated into the clinical context for interpretation. Performed By: #### C SFCCDIFF #### [address] Monocytes, CSF 2 Normal [facility] Comment on above: Order Comment: Comme nt tube 1 Result Comment: The reference interval and other method performance specifications have not been established for this body fluid. The test result must be integrated into the clinical context for interpretation. Performed By: #### C SFCCDIFF #### [address] RBC, CSF 5 /uL Normal [facility] Comment on above: Order Comment: Comme nt tube 1 Result Comment: The reference interval and other method performance specifications have not been established for this body fluid. The test result must be integrated into the clinical context for interpretation. Performed By: #### C SFCCDIFF #### [address] TNC, CSF 1 /uL Normal 0-5 [facility] Comment on above: Order Comment: Comme nt tube 1 Performed By: #### C SFCCDIFF #### [address] Total Count, CSF 8 Normal [facility] Comment on above: Order Comment: Comme nt tube 1 Performed By: #### C SFCCDIFF #### [address] Tube Number Tested, CSF Tube Number: 1 Normal [facility] Comment on above: Order Comment: Comme nt tube 1 Result Comment: PERF ORMED BY: [place] [address] PATHOLOGIST CONSERVATION COORDINATOR KELLY WIGGINS M.D. Performed By: #### C SFCCDIFF #### [address] Cell Count Differential,CSF #2on 09-25-2023 Appearance, CSF Clear Normal Clear [facility] Comment on above: Performed By: #### C SF TP, CSF PCR PANEL, CSFCCDIFF #2, GS, CSF GLU, AERC ####[facility] [id number] Color, CSF Colorless Normal Colorless [facility] Comment on above: Performed By: #### C SF TP, CSF PCR PANEL, CSFCCDIFF #2, GS, CSF GLU, AERC ####[address] CSF Supernatant Color Colorless Normal Colorless [facility] Comment on above: Performed By: #### C SF TP, CSF PCR PANEL, CSFCCDIFF #2, GS, CSF GLU, AERC ####[address] CSF Volume, Total 33.5 mL Normal [facility] Comment on above: Performed By: #### C SF TP, CSF PCR PANEL, CSFCCDIFF #2, GS, CSF GLU, AERC ####[address] Lymphocytes, CSF 3 Normal [facility] Comment on above: Result Comment: The reference interval and other method performance specifications have not been established for this body fluid. The test result must be integrated into the clinical context for interpretation. Performed By: #### C SF TP, CSF PCR PANEL, CSFCCDIFF #2, GS, CSF GLU, AERC ####[address] RBC, CSF 1 /uL Normal [facility] Comment on above: Result Comment: The reference interval and other method performance specifications have not been established for this body fluid. The test result must be integrated into the clinical context for interpretation. Performed By: #### C SF TP, CSF PCR PANEL, CSFCCDIFF #2, GS, CSF GLU, AERC ####[address] TNC, CSF 2 /uL Normal 0-5 [facility] Comment on above: Performed By: #### C SF TP, CSF PCR PANEL, CSFCCDIFF #2, GS, CSF GLU, AERC ####[address] Total Count, CSF 3 Normal [facility] Comment on above: Performed By: #### C SF TP, CSF PCR PANEL, CSFCCDIFF #2, GS, CSF GLU, AERC ####[facility] [id number] [place] [id number] [facility] Tube Number Tested, CSF Tube Number: 4 Normal [facility] Comment on above: Result Comment: PERF ORMED BY: [facility] [address] [place] [address] PATHOLOGIST CONSERVATION COORDINATOR KELLY WIGGINS M.D. Performed By: #### C SF TP, CSF PCR PANEL, CSFCCDIFF #2, GS, CSF GLU, AERC ####[facility] [id number] [place] [id number] [facility] Cerebrospinal fluid appearan ce descriptionOrdered By: Naya Butler on 09-25-2023 Appearance (CSF) Clear Clear [facility] Cerebrospinal fluid color id entificationOrdered By: Naya Butler on 09-25-2023 Color (CSF) Color CSF Colorless [facility] Cerebrospinal fluid post-lul trifugation appearance determinationOrdered By: Naya Butler on 09-25-2023 Appearance (Spun CSF) Colorless Colorless [facility] Appearance (Spun CSF) Cerebrospinal flui d post-centrifugation appearance determination Colorless [facility] Cerebrospinal fluid sample t ube volume measurementOrdered By: Naya Butler on 09-25-2023 Specimen volume (CSF) 33.5 mL [facility] Specimen volume (CSF) Cerebrospinal flui d sample tube volume measurement [facility] Color CSFOrdered By: Naya pink on 09-25-2023 Color (CSF) Colorless Colorless [facility] Determination of appearance of cerebrospinal fluidOrdered By: Naya Butler on 09-25-2023 Appearance (CSF) Cerebrospinal fluid appearance description Clear [facility] Eosinophil count CSFOrdered By: Naya Butler on 09-25-2023 CSF Eosinophils N/A [facility] Glucose [Mass/volume] in Cer ebral spinal fluidOrdered By: Naya Butler on 09-25-2023 Glucose (CSF) [Mass/Vol] 60 mg/dL 40-70 [facility] Glucose (CSF) [Mass/Vol] Glucose [Mass/volume] in Cerebral spinal fluid 40-70 [facility] Glucose, CSF #2on 09-25-2023 Glucose, CSF #2 60 mg/dL Normal 40-70 [facility] Comment on above: Performed By: #### C SF GLU #2, CSF TP #2 #### [place] [address] [place] Glucose, Spinal Fluidon 09-06 Glucose, Spinal Fluid 62 mg/dL Normal 40-70 [facility] Comment on above: Performed By: #### C SF TP, CSF PCR PANEL, CSFCCDIFF #2, GS, CSF GLU, AERC #### [place] [address] [place] Gram Stainon 09-25-2023 Microscopic observation Gram stain Nom (Unsp spec) Comment Aerobic/anaerobic Gram Stain Result No Bacteria Seen No White Blood Cells Seen No Red Blood Cells Seen PERFORMED BY: [place] [address] PATHOLOGIST CONSERVATION COORDINATOR KELLY WIGGINS M.D. Normal [facility] Comment on above: Performed By: #### C SF TP, CSF PCR PANEL, CSFCCDIFF #2, GS, CSF GLU, AERC #### [address] Gram stain for investigation of transfusion reactionOrdered By: Naya Butler on 09-25-2023 Microscopic observation Gram stain Nom (Unsp spec) No Anaerobes Isolated 2 Days [facility] Microscopic observation Gram stain Nom (Unsp spec) No Anaerobes Isolated 3 Days [facility] Gram stain microscopyOrdered By: Naya Butler on 09-25-2023 Microscopic observation Gram stain Nom (Unsp spec) Gram stain microscopy [facility] IR guided lumbar puncture LP on 09-25-2023 IR guided lumbar puncture LP [facility] Main [place] [address] [place] [address] Interventional Radiology Rpt Signed Patient: Rebecca White MR#: [id number] 38 : 1990 Acct:[id number] Age/Sex: 33 / F ADM Date: 09/25/23 Loc: XD Room: Type: [facility] Attending Dr: Naya JUÁREZ Copies to: FRANCK Masterson Ordering Provider: Naya Butler APRN-IRON ASSORTER-C Date of Service: 09/25/23 IR/IR guided lumbar [...] Manjeet Sargent M.D.09/25/2023 10:34 AM Dictation Location: [place] [address] Transcribed By: [facility] 09/25/23 103 Dictated By: Manjeet Sargent II, MD 09/25/23 103 Signed By: 09/25/[address] [facility] [place] 09-25-2023 L Specimen: [id number] Received: 09/25/23 Status: LORENZO [facility] Num: [id number] Spec Type: Cytology Subm Dr: Manjeet Sargent II, MD Tissues: A CSF (CSF) Procedures: Cyto Prepstain, DIFF QWIK, PAPSTN Age/ Patient Sex Location Account Attending Physician Rebecca White N 33/F XD [id number] Naya Butler, SYSTEM PLANNING ENGINEER-IRON ASSORTER-C SPEC NUM: [id number] RECD: 09/25/23 STATUS: LORENZO HURD NUM: [id number] ISABELLA: 09/25/23- SUBM DR: Manjeet Sargent II, MD ENTERED: 09/25/23 [facility] DR: Alyssa Butterfield MD SPEC TYPE: Cytology DEPT: CN ENTERED BY: [id number] RECV BY: [id number] ORDERED: Cyto Prepstain, DIFF QWIK, PAPSTN ORDERED: [...] [id number] Received: 09/25/23 Status: LORENZO Hurd Num: [id number] Spec Type: Cytology Subm Dr: Manjeet Sargent II, MD Tissues: A CSF (CSF) Procedures: Cyto Prepstain, DIFF QWIK, PAPSTN Patient: Rebecca White Vicki [id number] (Continued) Specimen: [id number] Received: 09/25/23 (Continued) Signed (signature on file) Ashley Coulter MD 09/27/23 1158 Specimen: [id number] Received: 09/25/23 Status: LORENZO Hurd Num: [id number] Spec Type: Cytology Subm Dr: Manjeet Sargent II, MD Tissues: A CSF (CSF) Procedures: Cyto Prepstain, DIFF QWIK, PAPSTN Patient: Rebecca White [id number] (Continued) Specimen: [id number] Received: 09/25/23 (Continued) CPT Codes 81177 Specimen: [id number] Received: 09/25/23 Status: LORENZO Hurd Num: [id number] Spec Type: Cytology Subm Dr: Manjeet Sargent II, MD Tissues: A CSF (CSF) Procedures: Cyto Prepstain, DIFF CHANI SEARS Patient: Rebecca White [id number] (Continued) Signed (signature on file) Ashley Coulter MD 09/27/23 1158 Normal [facility] Lymphocyte count CSFOrdered By: Naya Butler on 09-25-2023 CSF Lymphocytes 3 [facility] Comment on above: The reference interv al and other method performance specifications have not been established for this body fluid. The test result must be integrated into the clinical context for interpretation. Manual cerebrospinal fluid e rythrocytes count (number/volume)Ordered By: Naya Butler on 09-25-2023 RBC Manual cnt (CSF) [#/Vol] 1 /uL [facility] Comment on above: The reference interv al and other method performance specifications have not been established for this body fluid. The test result must be integrated into the clinical context for interpretation. RBC Manual cnt (CSF) [#/Vol] Manual cerebrospinal fluid erythrocytes count (number/volume) [facility] Comment on above: The reference interv al [...] - Cerebral spinal fluid by NIMA wi [facility] Meningitis+Encephalitis pathogens DNA and RNA panel NIMA+non-probe (CSF) [facility] Monocyte count CSFOrdered By : Naya Butler on 09-25-2023 CSF Monocytes N/A [facility] Neutrophil count CSFOrdered By: Naya Butler on 09-25-2023 CSF Neutrophils N/A [facility] No Panel InformationOrdered By: Naya Butler on 09-25-2023 CSF Total Cells Counted 3 [facility] CSF Tube Number Tube number: 4 [facility] Nucleated cells [#/volume] i n Cerebral spinal fluid by Manual countOrdered By: Naya Butler on 09-25-2023 Nucleated cells Manual cnt (CSF) [#/Vol] 0.002 10*3/uL 0-5 [facility] Nucleated cells Manual cnt (CSF) [#/Vol] Nucleated cells [#/volume] in Cerebral spinal fluid by Manual count 0-5 [facility] Protein [Mass/volume] in Cer ebral spinal fluidOrdered By: Naya Butler on 09-25-2023 Protein (CSF) [Mass/Vol] 23 mg/dL [facility] Protein (CSF) [Mass/Vol] Protein [Mass/volume] in Cerebral spinal fluid [facility] Total Protein, CSF #2on 09-06 0 Total Protein, CSF #2 23 mg/dL Normal [facility] Comment on above: Result Comment: PERF ORMED BY: [place] [address] PATHOLOGIST CONSERVATION COORDINATOR KELLY WIGGINS M.D. Performed By: #### C SF GLU #2, CSF TP #2 #### [address] Total Protein, Spinal Fluido n 09-25-2023 Total Protein, Spinal Fluid 26 mg/dL Normal [facility] Comment on above: Result Comment: PERF ORMED BY: [place] [address] PATHOLOGIST CONSERVATION COORDINATOR KELLY WIGGINS M.D. Performed By: #### C SF TP, CSF PCR PANEL, CSFCCDIFF #2, GS, CSF GLU, AERC #### [address] MR head/brain wo/w conon MR head/brain wo/w con [facility] [place] [address] MRI Report Signed Patient: Rebecca White MR#: [id number] 38 : 1990 Acct:[id number] Age/Sex: 33 / F ADM Date: 08/15/23 Loc: Room: Type: [facility] Attending Dr: Bonnie Johnson DO Copies [...] Manjeet Sargent M.D.08/15/2023 2:50 PM Dictation Location: [place] [address] Transcribed By: [facility] 08/15/23 1450 Dictated By: Manjeet Sargent II, MD 08/15/23 6641 Signed By: 08/15/23 1451 Normal [facility] SARS/FLU A+B/RS[facility] SARS/FLU A+B/RSV by NAAT/Molecular FLU [...] operators who are performing tests using either [employer] or [employer] systems and is limited to laboratories that [...] repeat. Fact Sheet for Healthcare Providers: https://www.fda.gov/medi a/712992/download Fact Sheet for Patients: https://www.fda.gov/medi a/533549/download Normal [facility] Comment on above: Performed By: #### C OVFLR #### [facility] ([id number]) [address] [place] [address] Cytology Cervical or vaginal smear or scraping studyOrdered By: Chelita Mayen on 03-05-2023 [facility] PAP ACOG PANEL 2: 30 to 65on 03-03-2022 . . Normal [facility] Comment on above: Result Comment: Perf ormed at: WB Performed By: #### [id number] #### [facility] [address] [place] [address] [address] Roc Coulter Age Gdln ACOG Testing 30-65 [facility] Comment on above: Performed By: #### [id number] #### [facility] [address] [place] [address] Dr. Roc Coulter DIAGNOSIS: Comment Normal [facility] Comment on above: Result Comment: NEGA TIVE FOR INTRAEPITHELIAL LESION OR MALIGNANCY. Performed at: WB Performed By: #### [id number] #### [facility] [address] [place] [address] Dr. Roc Coulter HPV Aptima Negative Normal Negative [facility] Comment on above: Result Comment: This nucleic acid amplification test detects fourteen high-risk HPV types (16,18,31,33,35,39,45,51,52,56,58,59,66,68) without differentiation. Performed at: =G Performed By: #### [id number] #### [facility] [address] [place] [address] Dr. Roc Coulter HPV Genotype Reflex Comment Normal [facility] Comment on above: Result Comment: Crit eria not met, HPV Genotype not performed. Performed at: WB Performed By: #### [id number] #### [facility] [address] [place] [address] Dr. Roc Coulter Methodology: Comment Normal [facility] Comment on above: Result Comment: This liquid based ThinPrep(R) pap test was screened with the use of an image guided system. Performed at: WB Performed By: #### [id number] #### [facility] [address] [place] [address] Dr. Roc Coulter Note: Comment Normal [facility] Comment on above: Result Comment: The Pap smear is a screening test designed to aid in the detection of premalignant and malignant conditions of the uterine cervix. It is not a diagnostic procedure and should not be used as the sole means of detecting cervical cancer. Both false-positive and false-negative reports do occur. . Performed at: WB Performed By: #### [id number] #### [facility] [address] [place] [address] Dr. Roc Coulter Performed by: Comment Normal [facility] Comment on above: Result Comment: Lina Quach, Hairspring Vibrator (ASCP) Performed at: WB Performed By: #### [id number] #### [facility] [address] [place] [address] Dr. Roc Coulter Specimen adequacy: Comment Normal [facility] Comment on above: Result Comment: Sati sfactory for evaluation. Endocervical and/or squamous metaplastic cells (endocervical component) are present. Performed at: WB Performed By: #### [id number] #### [facility] [address] [place] [address] Dr. Roc Coulter CBC AUTO DIFFon 08-24-2021 BASO # 0.0 103/ul Normal 0.0-0.1 [facility] Comment on above: Performed By: #### C BC #### [facility] [address] [place] [address] Dr. Roc Coulter Basophils/100 WBC (Bld) 0.3 % Normal 0.2-2.0 [facility] Comment on above: Performed By: #### C BC #### [facility] [address] [place] [address] Dr. Roc Coulter EO # 0.1 103/ul Normal 0.0-0.7 [facility] Comment on above: Performed By: #### C BC #### [facility] [address] [place] [address] Dr. Roc Coulter Eosinophils/100 WBC (Bld) 1.0 % Normal 0.9-7.0 [facility] Comment on above: Performed By: #### C BC #### [facility] [address] [place] [address] Dr. Roc Coulter Erythrocyte distribution width (RBC) [Ratio] 16.6 % Critically high 11.0-15.0 [facility] Comment on above: Performed By: #### C BC #### [facility] [address] [place] [address] Dr. Roc Coulter Hematocrit (Bld) [Volume fraction] 30.2 % Critically low 36.0-48.0 [facility] Comment on above: Performed By: #### C BC #### [facility] [address] [place] [address] Dr. Roc Coulter Hemoglobin (Bld) [Mass/Vol] 9.6 g/dL Critically low 12.0-16.0 [facility] Comment on above: Performed By: #### C BC #### [facility] [address] [place] [address] Dr. Roc Coulter IG # 0.10 10e3/ul Critically high 0.00-0.03 [facility] Comment on above: Performed By: #### C BC #### [facility] [address] [place] [address] Dr. Roc Coulter IG % 0.7 % Critically high 0.0-0.5 [facility] Comment on above: Performed By: #### C BC #### [facility] [address] [place] [address] Dr. Roc Coulter LYMPH # 2.5 103/ul Normal 1.2-3.8 [facility] Comment on above: Performed By: #### C BC #### [facility] [address] [place] [address] Dr. Roc Coulter Lymphocytes/100 WBC (Bld) 18.6 % Critically low 20.5-60.0 [facility] Comment on above: Performed By: #### C BC #### [facility] [address] [place] [address] Dr. Roc Coulter MANUAL DIFF REQ NO Normal [facility] Comment on above: Performed By: #### C BC #### [facility] [address] [place] [address] Dr. Roc Coulter MCH (RBC) [Entitic mass] 27.9 pg Normal 26.7-34.0 [facility] Comment on above: Performed By: #### C BC #### [facility] [address] [place] [address] Dr. Roc Coulter MCHC (RBC) [Mass/Vol] 31.8 g/dL Normal 29.9-35.2 [facility] Comment on above: Performed By: #### C BC #### [facility] [address] [place] [address] Dr. Roc Coulter MCV (RBC) [Entitic vol] 87.8 fL Normal 81.0-99.0 [facility] Comment on above: Performed By: #### C BC #### [facility] [address] [place] [address] Dr. Roc Coulter MONO # 0.9 103/ul Critically high 0.3-0.8 [facility] Comment on above: Performed By: #### C BC #### [facility] [address] [place] [address] Dr. Roc Coulter Monocytes/100 WBC (Bld) 6.7 % Normal 1.7-12.0 [facility] Comment on above: Performed By: #### C BC #### [facility] [address] [place] [address] Dr. Roc Cuolter NEUT # 9.8 103/ul Critically high 1.4-6.5 [facility] Comment on above: Performed By: #### C BC #### [facility] [address] [place] [address] Dr. Roc Coulter Neutrophils/100 WBC (Bld) 72.7 % Normal 43.0-75.0 [facility] Comment on above: Performed By: #### C BC #### [facility] [address] [place] [address] Dr. Roc Coulter Platelet mean volume (Bld) [Entitic vol] 10.4 fL Normal 9.5-13.5 [facility] Comment on above: Performed By: #### C BC #### [facility] [address] [place] [address] Dr. Roc Coulter PLT 228 103/ul Normal 150-450 [facility] Comment on above: Performed By: #### C BC #### [facility] [address] [place] [address] Dr. Roc Coulter RBC 3.44 106/ul Critically low 4.20-5.40 [facility] Comment on above: Performed By: #### C BC #### [facility] [address] [place] [address] Dr. Roc Coulter WBC 13.4 103/ul Critically high 4.0-11.0 [facility] Comment on above: Performed By: #### C BC #### [facility] [address] [address] [address] Roc Coulter CBC AUTO DIFFon 08-21-2021 BASO # 0.0 103/ul Normal 0.0-0.1 [facility] Comment on above: Performed By: #### C BC ####[facility] [address] [address]Dr. Roc Coulter Basophils/100 WBC (Bld) 0.5 % Normal 0.2-2.0 [facility] Comment on above: Performed By: #### C BC ####[facility] [address] [address]Dr. Roc Coulter EO # 0.1 103/ul Normal 0.0-0.7 [facility] Comment on above: Performed By: #### C BC ####[facility] [address] [address]Dr. Roc Coulter Eosinophils/100 WBC (Bld) 1.1 % Normal 0.9-7.0 [facility] Comment on above: Performed By: #### C BC ####[facility] [address] [place], [place] [address]Dr. Roc Coulter Erythrocyte distribution width (RBC) [Ratio] 16.1 % Critically high 11.0-15.0 [facility] Comment on above: Performed By: #### C BC ####[facility] [address] [address]Dr. Roc Coulter Hematocrit (Bld) [Volume fraction] 36.0 % Normal 36.0-48.0 [facility] Comment on above: Performed By: #### C BC ####[facility] [address] [place], [place] [address]Dr. Roc Coulter Hemoglobin (Bld) [Mass/Vol] 11.7 g/dL Critically low 12.0-16.0 [facility] Comment on above: Performed By: #### C BC ####[facility] [address] [place], [place] [address]Dr. Roc Coulter IG # 0.08 10e3/ul Critically high 0.00-0.03 [facility] Comment on above: Performed By: #### C BC ####[facility] [address] [address]DrWendy Coulter IG % 0.9 % Critically high 0.0-0.5 [facility] Comment on above: Performed By: #### C BC ####[facility] [address] [address]DrWendy Coulter LYMPH # 1.8 103/ul Normal 1.2-3.8 [facility] Comment on above: Performed By: #### C BC ####[facility] [address] [address]DrWendy Coulter Lymphocytes/100 WBC (Bld) 20.8 % Normal 20.5-60.0 [facility] Comment on above: Performed By: #### C BC ####[facility] [address] [address]DrWendy Coulter MANUAL DIFF REQ NO Normal [facility] Comment on above: Performed By: #### C BC ####[facility] [address] [address]DrWendy Coulter MCH (RBC) [Entitic mass] 28.0 pg Normal 26.7-34.0 [facility] Comment on above: Performed By: #### C BC ####[facility] [address] [address]DrWendy Coulter MCHC (RBC) [Mass/Vol] 32.5 g/dL Normal 29.9-35.2 [facility] Comment on above: Performed By: #### C BC ####[facility] [address] [address]DrWendy Coulter MCV (RBC) [Entitic vol] 86.1 fL Normal 81.0-99.0 [facility] Comment on above: Performed By: #### C BC ####[facility] [address] [address]DrWendy Coulter MONO # 0.8 103/ul Normal 0.3-0.8 [facility] Comment on above: Performed By: #### C BC ####[facility] [address] [address]Dr. Roc Coulter Monocytes/100 WBC (Bld) 9.6 % Normal 1.7-12.0 [facility] Comment on above: Performed By: #### C BC ####[facility] [address] [address]Dr. Roc Coulter NEUT # 5.9 103/ul Normal 1.4-6.5 [facility] Comment on above: Performed By: #### C BC ####[facility] [address] [place], [place] [address]Dr. Roc Coulter Neutrophils/100 WBC (Bld) 67.1 % Normal 43.0-75.0 [facility] Comment on above: Performed By: #### C BC ####[facility] [address] [place], [place] [address]Dr. Roc Coulter Platelet mean volume (Bld) [Entitic vol] 10.6 fL Normal 9.5-13.5 [facility] Comment on above: Performed By: #### C BC ####[facility] [address] [address]Dr. Roc Coulter PLT 235 103/ul Normal 150-450 [facility] Comment on above: Performed By: #### C BC ####[facility] [address] [address]Dr. Roc Coulter RBC 4.18 106/ul Critically low 4.20-5.40 [facility] Comment on above: Performed By: #### C BC ####[facility] [address] [address]Dr. Roc Coulter WBC 8.8 103/ul Normal 4.0-11.0 [facility] Comment on above: Performed By: #### C BC ####[facility] [address] [place], [place] [address]DrWendy Roc Coulter Covid-19 PCR (CVDTBH)on 08-05 SARS-CoV-2 (COVID-19) RNA NIMA+probe Ql (Unsp spec) Not detected Normal NOT DETECTED [facility] Comment on above: Result Comment: When diagnostic [...] for this test is supported by the [place] of Health and Human Service's declaration that [...] used). Performed By: #### C VDTBH #### [facility] [address] [place] [address] Dr. Roc Coulter DRUG SCREEN RAPID (URINE)on 08-21-2021 AMP Negative Normal NEGATIVE [facility] Comment on above: Performed By: #### D RUGRPD #### [facility] [address] [place] [address] Dr. Roc Coulter BAR Negative Normal NEGATIVE [facility] Comment on above: Performed By: #### D RUGRPD #### [facility] [address] [place] [address] Dr. Roc Coulter BUP Negative Normal NEGATIVE [facility] Comment on above: Performed By: #### D RUGRPD #### [facility] [address] [place] [address] Dr. Roc Coulter BZO Negative Normal NEGATIVE [facility] Comment on above: Performed By: #### D RUGRPD #### [facility] [address] [place] [address] Dr. Roc Coulter SHAYY Negative Normal NEGATIVE [facility] Comment on above: Performed By: #### D RUGRPD #### [facility] [address] [place] [address] Dr. Roc Coulter CUT-OFFS SEE BELOW Normal [facility] Comment on above: Result Comment: AMP (Amphetamine): 500ng/mL, BAR (Barbituates): 200 ng/mL, BZO (Benzodiazepines): 150 ng/mL, BUP (Buprenorphine): 10 ng/mL, SHAYY (Cocaine): 150 ng/mL, mAMP (Methamphetamine): 500 ng/mL, MTD (Methadone): 200 ng/mL, OPI (Opiates): 100 ng/mL, OXY (Oxycodone): 100 ng/mL, PCP (Phencyclidine): 25 ng/mL, PPX (Propoxyphene): 300 ng/mL, THC (Cannabinoids): 50 ng/mL, TCA (Trycyclic Antidepressants): 300 ng/mL Performed By: #### D RUGRPD #### [facility] [address] [place] [address] Dr. Roc Coulter DRUG CUT HEADER DRUG CLASS TEST SYST EM CUT-OFF CONCENTRATIONS ARE FOLLOWS: Normal [facility] Comment on above: Performed By: #### D RUGRPD #### [facility] [address] [place] [address] Dr. Roc Coulter mAMP Negative Normal NEGATIVE [facility] Comment on above: Performed By: #### D RUGRPD #### [facility] [address] [place] [address] Dr. Roc Coulter MTD Negative Normal NEGATIVE [facility] Comment on above: Performed By: #### D RUGRPD #### [facility] [address] [place] [address] Dr. Roc Coulter OPI Negative Normal NEGATIVE [facility] Comment on above: Performed By: #### D RUGRPD #### [facility] [address] [place] [address] Dr. Roc Coulter OXY Negative Normal NEGATIVE [facility] Comment on above: Performed By: #### D RUGRPD #### [facility] [address] [place] [address] Dr. Roc Coulter PCP Negative Normal NEGATIVE [facility] Comment on above: Performed By: #### D RUGRPD #### [facility] [address] [address] [address] Roc Coulter PPX Negative Normal NEGATIVE [facility] Comment on above: Performed By: #### D RUGRPD #### [facility] [address] [address] [address] Roc Coulter TCA Negative Normal NEGATIVE [facility] Comment on above: Performed By: #### D RUGRPD #### [facility] [address] [address] [address] Roc Coluter THC Negative Normal NEGATIVE [facility] Comment on above: Performed By: #### D RUGRPD #### [facility] [address] [address] [address] Roc Coulter TYPE AND SCREENon 08-21-2021 TYPE AND SCREEN Negative Normal [facility] Comment on above: Performed By: #### T NS ####[facility] [address] [address]Dr. Roc Coulter US PREG BIOPHY W NON [...] KULWINDER VENEGAS Date: 2021-08-19 16:43 Normal [facility] US PREG GROWTHon 08-01-2021 US PREG GROWTH [...] KULWINDER VENEGAS Date: 2021-08-01 07:24 Normal [facility] GROUP B STREP CULTUREon 07-07 S. agalactiae Ag Ql (Unsp spec) Culture Observations: NEGATIVE FOR GROUP B STREPTOCOCCUS. Normal [facility] Comment on above: Performed By: #### G BSCX ####[facility] [address] [place], [place] [address]Ta. Roc Coulter US PREG GROWTHon 06-09-2021 US [...] KULWINDER VENEGAS Date: 2021-06-09 16:45 Normal [facility] US PREG INCOMPLETE ANATOMYon 06-09-2021 US PREG INCOMPLETE ANATOMY EXAMINATION: US PREG INCOMPLETE ANATOMY HISTORY: screening COMPARISON: 05/06/2021 FINDINGS: Normal visualized anatomy: RVOT, LVOT, kidneys, spine, orbits Amniotic fluid index: 19.1 cm, normal Heart rate: 153 bpm IMPRESSION: Normal observed anatomy Electronically authenticated by: KULWINDER VENEGAS Date: 2021-06-09 16:46 Normal [facility] GTT 3 HR PREGon 05-28-2021 Glucose [Mass/Vol] 83 mg/dL Normal 74-106 [facility] Comment on above: Performed By: #### G TT3P #### [facility] [address] [place] [address] Dr. Roc Coulter Glucose [Mass/Vol] 176 mg/dL Normal [facility] Comment on above: Performed By: #### G TT3P #### [facility] [address] [place] [address] Dr. Roc Coulter Glucose [Mass/Vol] 125 mg/dL Normal [facility] Comment on above: Performed By: #### G TT3P #### [facility] [address] [place] [address] Dr. Roc Coulter Glucose [Mass/Vol] 97 mg/dL Normal [facility] Comment on above: Performed By: #### G TT3P #### [facility] [address] [place] [address] Dr. Roc oCulter GLUCOSE - 1HRon 05-06-2021 Glucose [Mass/Vol] 173 mg/dL Critically high 74-106 [facility] Comment on above: Performed By: #### G LU1HR #### [facility] [address] [place] [address] Dr. Roc Coulter HEMOGRAM AND PLATELon 2021 Hematocrit (Bld) [Volume fraction] 34.5 % Critically low 36.0-48.0 [facility] Comment on above: Performed By: #### H H #### [facility] [address] [address] [address] Roc Coulter Hemoglobin (Bld) [Mass/Vol] 10.8 g/dL Critically low 12.0-16.0 [facility] Comment on above: Performed By: #### H H #### [facility] [address] [place] [address] Dr. Roc Coulter MCH (RBC) [Entitic mass] 27.9 pg Normal 26.7-34.0 [facility] Comment on above: Performed By: #### H H #### [facility] [address] [place] [address] Dr. Roc Coulter MCHC (RBC) [Mass/Vol] 31.3 g/dL Normal 29.9-35.2 [facility] Comment on above: Performed By: #### H H #### [facility] [address] [place] [address] Dr. Roc Coulter MCV (RBC) [Entitic vol] 89.1 fL Normal 81.0-99.0 [facility] Comment on above: Performed By: #### H H #### [facility] [address] [place] [address] Dr. Roc Coulter PLT 298 103/ul Normal 150-450 [facility] Comment on above: Performed By: #### H H #### [facility] [address] [place] [address] Dr. Roc Coulter RBC 3.87 106/ul Critically low 4.20-5.40 [facility] Comment on above: Performed By: #### H H #### [facility] [address] [place] [address] Dr. Roc Coulter WBC 8.1 103/ul Normal 4.0-11.0 [facility] Comment on above: Performed By: #### H H #### [facility] [address] [place] [address] Dr. Roc Coulter US PREG ANATOMY SINGLEon [...] by: KULWINDER VENEGAS Date: 2021-05-06 16:06 Normal [facility] Progesteroneon 10-29-2020 Progesterone 9.3 ng/mL Normal [facility] Comment on above: Result Comment: Mens trual Cycle Progesterone Reference Ranges: Follicular:<1.0 ng/mL Ovulation:<12.1 ng/mL Luteal:1.8 to 23.9 ng/mL Progesterone Reference Ranges vary by gestational period: First Trimester:11.0 to 44.3 ng/mL Second trimester: 25.4 to 83.3 ng/mL Third trimester: 58.7 to 214 ng/mL Post menopausal Progesterone:<0.5 ng/mL Reference: 1. Progesterone (Progesterone III) [package insert V 1.0 [place]]. [facility], [place], [place]. November 2014. Performed By: #### P ELIZABETH #### [facility] [address] [place], [place] [address] OBSOLETEon 10-03-2020 OBSOLETE Refill (ENDOCC) -------- REBECCA WHITE ([id number]) 1990 F Date Time Provider Department 10/03/20 [...] (FLONASE) 50 mcg/actuation nasal spray Use 1 [place] in the nose as needed. - sertraline [...] Status:Closed by ZEYAD GARCIA on 10/20/20 Normal [facility] Estradiol-17Bon 09-10-2020 Estradiol-17B 57 pg/mL Normal [facility] Comment on above: Result Comment: This [...] 3243 pg/mL Second trimester : 1561 TO 50714 pg/mL Third trimester : 8285 to >83242 pg/mL Post-menopausal Estradiol reference range: < 41 pg/mL Reference: 1. Estradiol - E2 (Estradiol III) [package insert V 3.0 [place]]. [facility], [place], [place], July 2015. Performed By: #### I NSULN, DHEAS, VITD, HBA1C, GERMAIN #### [facility] [address] [place], [place] [address] HCG, Quantitative Blon 09-10 HCG, Quantitative Bl <0.6 Normal <5.0 [facility] Comment on above: Result Comment: PAT JULIO Performed By: #### I NSULN, DHEAS, VITD, HBA1C, DIONISIO #### [facility] [employer] [address] [place], [place] [address] Progesteroneon 09-10-2020 Progesterone 0.2 ng/mL Normal [facility] Comment on above: Result Comment: Mens trual Cycle Progesterone Reference Ranges: Follicular:<1.0 ng/mL Ovulation:<12.1 ng/mL Luteal:1.8 to 23.9 ng/mL Progesterone Reference Ranges vary by gestational period: First Trimester:11.0 to 44.3 ng/mL Second trimester: 25.4 to 83.3 ng/mL Third trimester: 58.7 to 214 ng/mL Post menopausal Progesterone:<0.5 ng/mL Reference: 1. Progesterone (Progesterone III) [package insert V 1.0 [place]]. [facility], [place], [place]. November 2014. Performed By: #### I NSULN, DHEAS, VITD, HBA1CDIONISIO #### [facility] [employer] [address] [place], [place] [address] CNPNon 09-09-2020 CNPN Telephone (OBGYAV) -------- REBECCA WHITE ([id number]) 1990 F Date Time Provider Department 09/09/20 HALLE LEACH OBNIKA During your visit today, we recorded the following information about you: Sheela Greenart CARREONN 09/09/2020 9:12 AM Signed Pt called Negative home test Day 42 of her cycle Please call [phone] Ok to leave a message Rafaela Millard [...] September 09, 2020 12:30 PM Maurice Bonilla APRN.ADJUSTO WRITER OPERATOR 09/09/2020 12:43 PM Signed Labs ordered, if [...] amenorrhea [N91.1] Order(s):HCG QUANTITATIVE [SQHCGQT] Order #: [id number] FUTURE PROGESTERONE BLD [SQPROG] Order #: [id number] FUTURE ESTRADIOL-17B BLD [SQE2] Order #: [id number] FUTURE SCHEDULE LAB TESTING [[id number]] Order #: [id number] FUTURE Prescriptions as of 09/09/2020 - medroxyPROGESTERone (PROVERA) 10 mg tablet Take 1 tablet by mouth once daily for 10 days. - fluticasone (FLONASE) 50 mcg/actuation nasal spray Use 1 [place] in the nose as needed. - sertraline [...] Encounter Status:Closed by MAURICE BONILLA on 09/09/20 [facility] [facility] 09-03-2020 [facility] -------- REBECCA WHITE ([id number]) 1990 F Date Time Provider Department 09/03/20 HALLE LEACH During your visit today, we recorded the following information about you: Rafaela Millard RN 09/03/2020 8:22 AM Signed Patient sent a [employer] chart message. Called the patient she verified [...] used provera was May. Routing to Non [facility] Pool for advisement Rafaela Millard RN September 03, 2020 8:22 AM Allergies As of Date: 09/03/2020 (No Known Allergies) Date Reviewed: 05/06/2020 Reviewed by: Liliane Drew - Fully Assessed Reason for Visit: Question [5887] Prescriptions as of 09/09/2020 - medroxyPROGESTERone (PROVERA) 10 mg tablet Take 1 tablet by mouth once daily for 10 days. - fluticasone (FLONASE) 50 mcg/actuation nasal spray Use 1 [place] in the nose as needed. - sertraline [...] Status:Closed by RAFAELA MILLARD on 09/09/20 Normal [facility] Progesteroneon 06-16-2020 Progesterone 14.3 ng/mL Normal [facility] Comment on above: Result Comment: Mens trual Cycle Progesterone Reference Ranges: Follicular:<1.0 ng/mL Ovulation:<12.1 ng/mL Luteal:1.8 to 23.9 ng/mL Progesterone Reference Ranges vary by gestational period: First Trimester:11.0 to 44.3 ng/mL Second trimester: 25.4 to 83.3 ng/mL Third trimester: 58.7 to 214 ng/mL Post menopausal Progesterone:<0.5 ng/mL Reference: 1. Progesterone (Progesterone III) [package insert V 1.0 Kenyan]. [facility], [place], [place]. November 2014. Performed By: #### P ELIZABETH #### [place] [address] Anti Germain Hormoneon 2020 Anti Germain Hormone 9.30 ng/mL High 0.58-8.13 [facility] Comment on above: Performed By: #### I NSULN, DHEAS, VITD, HBA1C, GERMAIN #### [place] [id number] [place] [address] CBCon 05-06-2020 Absolute nRBC <0.01 Normal <0.01 [facility] Comment on above: Performed By: #### I NSULN, DHEAS, VITD, HBA1C, GERMAIN #### [place] [address] Erythrocyte distribution width (RBC) [Ratio] 13.2 % Normal 11.5-15.0 [facility] Comment on above: Performed By: #### I NSULN, DHEAS, VITD, HBA1C, GERMAIN #### [place] [address] Hematocrit (Bld) [Volume fraction] 44.5 % Normal 36.0-46.0 [facility] Comment on above: Performed By: #### I NSULN, DHEAS, VITD, HBA1C, GERMAIN #### [place] [address] [place], [place] [address] Hemoglobin (Bld) [Mass/Vol] 14.6 g/dL Normal 11.5-15.5 [facility] Comment on above: Performed By: #### I NSULN, DHEAS, VITD, HBA1C, DIONISIO #### [place] [id number] [place] [id number] MCH 29.4 pG Normal 26.0-34.0 [facility] Comment on above: Performed By: #### I NSULN, DHEAS, VITD, HBA1C, DIONISIO #### [place] [id number] [place] [address] MCHC (RBC) [Mass/Vol] 32.8 g/dL Normal 30.5-36.0 [facility] Comment on above: Performed By: #### I NSULN, DHEAS, VITD, HBA1C, DIONISIO #### [place] [id number] [place] [address] MCV (RBC) [Entitic vol] 89.5 fL Normal 80.0-100.0 [facility] Comment on above: Performed By: #### I NSULN, DHEAS, VITD, HBA1C, DIONISIO #### [place] [address] [place], [place] [address] Platelet mean volume (Bld) [Entitic vol] 9.6 fL Normal 9.0-12.7 [facility] Comment on above: Performed By: #### I NSULN, DHEAS, VITD, HBA1C, DIONISIO #### [place] [address] [place], [place] [address] Platelets (Bld) [#/Vol] 314 10*3/uL Normal 150-400 [facility] Comment on above: Performed By: #### I NSULN, DHEAS, VITD, HBA1C, DIONISIO #### [place] [address] [place], [place] [address] RBC (Bld) [#/Vol] 4.97 10*6/uL Normal 3.90-5.20 [facility] Comment on above: Performed By: #### I NSULN, DHEAS, VITD, HBA1C, DIONISIO #### [facility] [address] [place], [place] [address] WBC (Bld) [#/Vol] 8.64 10*3/uL Normal 3.70-11.00 [facility] Comment on above: Performed By: #### I NSULN, DHEAS, VITD, HBA1C, DIONISIO #### [facility] [address] [place], [place] [address] CNOVon 05-06-2020 CNOV Office Visit (MINGO) -------- REBECCA WHITE ([id number]) 1990 F Date Time Provider Department 05/06/20 8:45 AM HALLE LEACH During your visit today, we recorded the following information about you: Pulse Blood pressure Weight Height 64/minute 119/64 104.6 kg 1.676 m Last Period 01/08/20 Liliane Drew MA 05/06/2020 8:50 AM Signed [facility] Date: 05/06/2020 Consultation Requested By: Dr Joycelyn Aleln Rebecca White is a 30 year old [...] Hysteroscopy Laparoscopy OPK (Ovulation Predictor Kit) Ovarian [place] Saline Ultrasound Semen Analysis Ultrasound Other (See [...] on file. 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/EXERCISE: Occupation: [employer] Exercise: no Partner Information Partner's Name: Pietro [...] (FLONASE) 50 mcg/actuation nasal spray Use 1 [place] in the nose as needed. - sertraline [...] with more than 50% of the total xygu-uo-uomp time of the visit in counseling / coordination of care. Medical Decision Making Consultation requested by Dr. Joycelyn Allen MD [address] [place] [address] [place] [address] for an opinion regarding irregular period and my recommendations will be (more content not included)... Normal [facility] CONSULT PROGon 05-06-2020 CONSULT PROG HNO ID: [id number] Author: Liliane Drew Service: ? Author Type: Receiving Dock Checker Type: Consult Progress Note Filed: 05/11/2020 7:30 PM Note Text: [facility] Date: 05/06/2020 Consultation Requested By: Dr Joycelyn lAlen Rebecca White is a 30 year old female presenting with the following history: HISTORY OF PRESENT ILLNESS: Rebecca Whiet is a 30 year old female with [...] Hysteroscopy Laparoscopy OPK (Ovulation Predictor Kit) Ovarian [place] Saline Ultrasound Semen Analysis Ultrasound Other (See [...] on file. 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/EXERCISE: Occupation: [employer] Exercise: no Partner Information Partner's Name: Pietro [...] (FLONASE) 50 mcg/actuation nasal spray Use 1 [place] in the nose as needed. - sertraline [...] with more than 50% of the total dllw-xi-dxgr time of the visit in counseling / coordination of care. Medical Decision Making Consultation requested by Dr. Joycelyn Allen MD [address] [place] [address] [place] [phone] for an opinion regarding irregular period and my recommendations will be communicated back to the requesting physician by way of shared Medical record or letter via US mail , MD signature - MD Shirin Agosto MD [facility] Comp Metabolic Panelon 05-06 Albumin [Mass/Vol] 4.2 g/dL Normal 3.9-4.9 [facility] Comment on above: Performed By: #### I NSULN, DHEAS, VITD, HBA1C, GERMAIN #### [facility] [address] [place], [place] [address] ALP [Catalytic activity/Vol] 81 U/L Normal 34-123 [facility] Comment on above: Performed By: #### I NSULN, DHEAS, VITD, HBA1C, GERMAIN #### [place] [address] [place], [place] [address] ALT [Catalytic activity/Vol] 18 U/L Normal 7-38 [facility] Comment on above: Performed By: #### I NSULN, DHEAS, VITD, HBA1C, GERMAIN #### [place] [address] [place], [place] [address] Anion gap [Moles/Vol] 13 mmol/L Normal 9-18 [facility] Comment on above: Performed By: #### I NSULN, DHEAS, VITD, HBA1C, GERMAIN #### [place] [address] [place], [place] [address] AST [Catalytic activity/Vol] 19 U/L Normal 13-35 [facility] Comment on above: Performed By: #### I NSULN, DHEAS, VITD, HBA1C, GERMAIN #### [facility] [address] [place], [place] [address] Bilirubin [Mass/Vol] 0.3 mg/dL Normal 0.2-1.3 [facility] [place] Comment on above: Performed By: #### I NSULN, DHEAS, VITD, HBA1C, GERMAIN #### [facility] [address] [place], [place] [address] Calcium [Mass/Vol] 9.3 mg/dL Normal 8.5-10.2 [facility] Comment on above: Performed By: #### I NSULN, DHEAS, VITD, HBA1C, GERMAIN #### [facility] [address] [place] [address] Chloride [Moles/Vol] 103 mmol/L Normal 97-105 [facility] [place] Comment on above: Performed By: #### I NSULN, DHEAS, VITD, HBA1C, GERMAIN #### [place] [address] [place] [address] CO2 [Moles/Vol] 24 mmol/L Normal 22-30 [facility] Comment on above: Performed By: #### I NSULN, DHEAS, VITD, HBA1C, GERMAIN #### [place] [phone] Creatinine [Mass/Vol] 0.72 mg/dL Normal 0.58-0.96 [facility] Comment on above: Performed By: #### I NSULN, DHEAS, VITD, HBA1C, GERMAIN #### [place] [address] eGFR- Amer. >60 Normal [facility] Comment on above: Performed By: #### I NSULN, DHEAS, VITD, HBA1C, GERMAIN #### [place] [address] [place] [address] eGFR-All Other Races >60 Normal [facility] [place] Comment on above: Result Comment: eGFR (Estimated [...] I NSULN, DHEAS, VITD, HBA1C, GERMAIN #### [place] [address] [place] [id number] Glucose [Mass/Vol] 85 mg/dL Normal 74-99 [facility] Comment on above: Result Comment: The [place] Diabetes Association (ADA) provides guidance for cutoff [...] Standards of Medical Care in Diabetes 2016, [place] Diabetes Association. Diabetes Care. 2016.39(Suppl 1). Performed By: #### I NSULN, DHEAS, VITD, HBA1C, GERMAIN #### [place] [address] [place] [address] Potassium [Moles/Vol] 3.9 mmol/L Normal 3.7-5.1 [facility] Comment on above: Performed By: #### I NSULN, DHEAS, VITD, HBA1C, GERMAIN #### [place] [address] [place] [phone] Protein [Mass/Vol] 7.4 g/dL Normal 6.3-8.0 [facility] Comment on above: Performed By: #### I NSULN, DHEAS, VITD, HBA1C, GERMAIN #### [facility] [address] [place], [place] [address] Sodium [Moles/Vol] 140 mmol/L Normal 136-144 [facility] Comment on above: Performed By: #### I NSULN, DHEAS, VITD, HBA1C, GERMAIN #### [facility] [address] [place], [place] [address] Urea nitrogen [Mass/Vol] 9 mg/dL Normal 7-21 [facility] Comment on above: Performed By: #### I NSULN, DHEAS, VITD, HBA1C, DIONISIO #### [facility] [address] [place] [address] DHEA-Son 05-06-2020 DHEA-S 154.9 ug/dL Normal 98.8-340.0 [facility] Comment on above: Result Comment: Refe rence ranges are age and gender specific. For additional information, reference range tables can be found in the laboratory test directory. The normal values are based on the following source: Dehydroepiandrosterone sulfate (DHEA S) [package insert V 17.0 Kenyan]. [facility], [place], [place]: September 2012. Performed By: #### I NSULN, DHEAS, VITD, HBA1CDIONISIO #### [place] [address] [place] [phone] Hemoglobin A1con 05-06-2020 Glucose [Mass/Vol] 111 mg/dL Normal [facility] Comment on above: Result Comment: eAG: (Estimated average glucose) is a calculated value from HgbA1c and is artist's representative of the average blood glucose level in the last 2-3 month period. Performed By: #### I NSULN, DHEAS, VITD, HBA1CDIONISIO #### [place] [address] [place] [address] HbA1c (Bld) [Mass fraction] 5.5 % Normal 4.3-5.6 [facility] Comment on above: Result Comment: [place] Diabetes Association guidelines indicate that patients with HgbA1c in the range 5.7-6.4% are at increased risk for development of diabetes, and intervention by lifestyle modification may be beneficial. HgbA1c greater or equal to 6.5% is considered diagnostic of diabetes. Performed By: #### I NSULN, DHEAS, VITD, HBA1C, DIONISIO #### [facility] [address] [place] [phone] Insulinon 05-06-2020 Insulin 16.4 mU/L Normal 3.0-25.0 [facility] Comment on above: Performed By: #### I NSULN, DHEAS, VITD, HBA1C, DIONISIO #### [facility] [address] [place] [address] Testosterone, Tot/Fron 05-06 Testosterone [Mass/Vol] 77 ng/dL High 8-60 [facility] Comment on above: Result Comment: (NOT E) ADDITIONAL INFORMATION Testing performed by Liquid Chromatography-Tandem Mass Spectrometry (LC-MS/MS). This test was developed and its performance characteristics determined by [facility] in a manner consistent with CLIA requirements. This test has not been cleared or approved by the U.S. Food and Drug Administration. Performed By: #### T FTEST #### [facility] [address] [place] [address] Testosterone, Free 1.54 ng/dL High 0.06-1.03 [facility] Comment on above: Result Comment: (NOT E) ADDITIONAL INFORMATION Testing performed by [facility]. This test was developed and its performance characteristics determined by [facility] in a manner consistent with CLIA requirements. This test has not been cleared or approved by the U.S. Food and Drug Administration. Performed By: #### T FTEST #### [facility] [address] [place] [address] Vitamin D 25 Hydroxyon 05-06 Vitamin D 25 Hydroxy 24.7 ng/mL Low 31.0-80.0 [facility] [place] Comment on above: Result Comment: Clas sification of 25 [place] Vitamin D status: Insufficiency/Moderate Deficiency: < or = 30 ng/mL Sufficiency/Optimal Levels: 31 to 80 ng/mL Toxicity: > 100 ng/mL Test performed by chemiluminescent immunoassay. Performed By: #### I NSULN, DHEAS, VITD, HBA1C, DIONISIO #### [facility] [address] [place] [address] Creatinine,Urine,24hon 03-29 Creatinine,Urine,24h 1.713 g/24 hr Normal 0.8-1.8 [facility] Comment on above: Performed By: #### I NSULN, DHEAS, VITD, HBA1C, GERMAIN #### [facility] [address] [place] [address] Free Ben, UR LCMSMSon 03-29 Collect Lgth, UFRCRT 24 Normal [facility] [place] Comment on above: Performed By: #### I NSULN, DHEAS, VITD, HBA1C, GERMAIN #### [place] [address] Creatinine [Mass/Vol] 214 mg/dL Normal [facility] Comment on above: Performed By: #### I NSULN, DHEAS, VITD, HBA1C, GERMAIN #### [place] [address] Total Volume, UFRCRT 710 Normal [facility] [place] Comment on above: Performed By: #### I NSULN, DHEAS, VITD, HBA1C, GERMAIN #### [place] [address] [place], [place] [address] UR Ben Free Interp SEE NOTE Normal [facility] Comment on above: Result Comment: (NOT E) INTERPRETIVE INFORMATION: Cortisol Urine Free by LC-MS/MS Access complete set of age- and/or gender-specific reference intervals for this test in the [facility] Test Directory ([facility]). This test was developed and its performance characteristics determined by [facility]. It has not been cleared or approved by the US Food and Drug Administration. This test was performed in a CLIA certified laboratory and is intended for clinical purposes. Performed by [facility], [address] [place] [address],[place] [address] [email or web address], Lin Rosales MD, Lab. Director Performed By: #### I NSULN, DHEAS, VITD, HBA1C, GERMAIN #### [facility] [address] [place], [place] [address] UR Ben Free ug/d 14.5 ug/d Normal <=45.0 [facility] Comment on above: Performed By: #### I NSULN, DHEAS, VITD, HBA1C, GERMAIN #### [facility] [address] [place], [place] [address] UR Ben Free ug/L 20.40 ug/L Normal [facility] Comment on above: Performed By: #### I NSULN, DHEAS, VITD, HBA1C, GERMAIN #### [facility] [address] [place] [address] UR Cortisol ug/g brick chimney supervisor 9.53 ug/g HEALTH DATA ADMINISTRATOR [facility] Comment on above: Result Comment: (NOT E) Reference Interval: Cortisol ug/g brick chimney supervisor Female Prepubertal: Less than 25 ug/g brick chimney supervisor 18 years and older: Less than 24 ug/g brick chimney supervisor : Less than 59 ug/g brick chimney supervisor Male Prepubertal: Less than 25 ug/g brick chimney supervisor 18 years and older: Less than 32 ug/g brick chimney supervisor Performed By: #### I NSULN, DHEAS, VITD, HBA1C, GERMAIN #### [facility] [address] [place], [place] [address] UR,Creatinine mg/day 1519 mg/d Normal 700-1600 [facility] [place] Comment on above: Performed By: #### I NSULN, DHEAS, VITD, HBA1C, GERMAIN #### [facility] [address] [place] [id number] Period / Volumeon 03-29-2020 Collection End Date [facility] Comment on above: Performed By: #### I NSULN, DHEAS, VITD, HBA1C, GERMAIN #### [facility] [address] [place], [place] [address] Collection End Time 929 [facility] Comment on above: Performed By: #### I NSULN, DHEAS, VITD, HBA1C, GERMAIN #### [facility] [address] [place] [phone] Collection Start Date Normal [facility] Comment on above: Performed By: #### I NSULN, DHEAS, VITD, HBA1C, GERMAIN #### [facility] [address] [place] [phone] Collection Start Time 0930 Normal [facility] Comment on above: Performed By: #### I NSULN, DHEAS, VITD, HBA1C, GERMAIN #### [facility] [address] [place] [phone] Period 24 hr Normal [facility] Comment on above: Performed By: #### I NSULN, DHEAS, VITD, HBA1C, GERMAIN #### [facility] [address] [place] [phone] Volume 710 mL Normal [facility] Comment on above: Performed By: #### I NSULN, DHEAS, VITD, HBA1C, GERMAIN #### [facility] [address] [place] [phone] Vital Signs Date Time Vital Sign Value Performing Clinician Faci kirsten 05-15-2024 13:08-0400 Body height 165.1 cm Fran Oseguera MD Work Phone: [facility] 05-15-2024 13:08-0400 Body mass index (BMI) [Ratio] 46.26 kg/m2 Fran Oseguera MD Work Phone: [facility] 05-15-2024 13:08-0400 Body weight 126.1 kg Fran Oseguera MD Work Phone: [facility] 05-15-2024 13:08-0400 Diastolic blood pressure 80 mm[Hg] Fran Oseguera MD Work Phone: [facility] 05-15-2024 13:08-0400 Heart rate 84 /min Fran Oseguera MD Work Phone: [facility] 05-15-2024 13:08-0400 Systolic blood pressure 126 mm[Hg] Fran Oseguera MD Work Phone: [facility] 05-01-2024 14:50-0400 Body height 165.1 cm [facility] 05-01-2024 14:50-0400 Body mass index (BMI) [Ratio] 46.1 kg/m2 [facility] 05-01-2024 14:50-0400 Body weight 125.81 kg [facility] 05-01-2024 14:50-0400 Diastolic blood pressure 73 mm[Hg] [facility] 05-01-2024 14:50-0400 Heart rate 96 /min [facility] 05-01-2024 14:50-0400 Respiratory rate 12 /min [facility] 05-01-2024 14:50-0400 SaO2% (BldA) [Mass fraction] 98 % [facility] 05-01-2024 14:50-0400 Systolic blood pressure 128 mm[Hg] [facility] 03-27-2024 09:45-0500 Body height 165.1 cm [facility] 03-27-2024 09:45-0500 Body mass index (BMI) [Ratio] 45.7 kg/m2 [facility] 03-27-2024 09:45-0500 Body weight 124.73 kg [facility] 03-27-2024 09:45-0500 Diastolic blood pressure 84 mm[Hg] [facility] 03-27-2024 09:45-0500 Heart rate 85 /min [facility] 03-27-2024 09:45-0500 SaO2% (BldA) [Mass fraction] 97 % [facility] 03-27-2024 09:45-0500 Systolic blood pressure 125 mm[Hg] [facility] 03-11-2024 16:21-0500 Body mass index (BMI) [Ratio] 45.76 kg/m2 Naya Butler NP Work Phone: [facility] 03-11-2024 16:21-0500 Body weight 124.74 kg Naya Butler [employer] Work Phone: [facility] 03-11-2024 16:21-0500 Diastolic blood pressure 86 mm[Hg] Naya Butler [employer] Work Phone: [facility] 03-11-2024 16:21-0500 Heart rate 104 /min Naya Butler [employer] Work Phone: [facility] 03-11-2024 16:21-0500 SaO2% (BldA) [Mass fraction] 95 % Naya Butler [employer] Work Phone: [facility] 03-11-2024 16:21-0500 Systolic blood pressure 142 mm[Hg] Naya Butler [employer] Work Phone: [facility] 03-06-2024 09:35-0500 Body height 165.1 cm [facility] 03-06-2024 09:35-0500 Body mass index (BMI) [Ratio] 45.6 kg/m2 [facility] 03-06-2024 09:35-0500 Body weight 124.39 kg [facility] 03-06-2024 09:35-0500 Diastolic blood pressure 62 mm[Hg] [facility] 03-06-2024 09:35-0500 Heart rate 62 /min [facility] 03-06-2024 09:35-0500 SaO2% (BldA) [Mass fraction] 96 % [facility] 03-06-2024 09:35-0500 Systolic blood pressure 108 mm[Hg] [facility] 03-06-2024 08:40-0500 Body mass index (BMI) [Ratio] 45.62 kg/m2 Ricci Harpreet DO Work Phone: [facility] 03-06-2024 08:40-0500 Body weight 124.34 kg Ricci Harpreet DO Work Phone: [facility] 03-06-2024 08:40-0500 Diastolic blood pressure 78 mm[Hg] Ricci Harpreet DO Work Phone: [facility] 03-06-2024 08:40-0500 Systolic blood pressure 120 mm[Hg] Ricci Mullins DO Work Phone: [facility] 02-26-2024 10:01-0500 Body height 165.1 cm [facility] 02-26-2024 10:01-0500 Body mass index (BMI) [Ratio] 45.7 kg/m2 [facility] 02-26-2024 10:01-0500 Body weight 124.73 kg [facility] 02-26-2024 10:01-0500 Diastolic blood pressure 64 mm[Hg] [facility] 02-26-2024 10:01-0500 Heart rate 99 /min [facility] 02-26-2024 10:01-0500 Systolic blood pressure 111 mm[Hg] [facility] 02-14-2024 11:24-0500 Body height 165.1 cm [facility] 02-14-2024 11:24-0500 Body mass index (BMI) [Ratio] 45.7 kg/m2 [facility] 02-14-2024 11:24-0500 Body temperature 97.7 [degF] [facility] 02-14-2024 11:24-0500 Body weight 124.73 kg [facility] 02-14-2024 11:24-0500 Diastolic blood pressure 73 mm[Hg] [facility] 02-14-2024 11:24-0500 Heart rate 87 /min [facility] 02-14-2024 11:24-0500 SaO2% (BldA) [Mass fraction] 97 % [facility] 02-14-2024 11:24-0500 Systolic blood pressure 107 mm[Hg] [facility] 01-22-2024 13:01-0500 Body mass index (BMI) [Ratio] 45.43 kg/m2 Naya Butler [employer] Work Phone: [facility] 01-22-2024 13:01-0500 Body weight 123.83 kg Naya Butler [employer] Work Phone: [facility] 01-22-2024 13:01-0500 Diastolic blood pressure 70 mm[Hg] Naya Butler [employer] Work Phone: [facility] 01-22-2024 13:01-0500 Heart rate 98 /min Naya Butler [employer] Work Phone: [facility] 01-22-2024 13:01-0500 SaO2% (BldA) [Mass fraction] 96 % Naya Butler [employer] Work Phone: [facility] 01-22-2024 13:01-0500 Systolic blood pressure 118 mm[Hg] Naya Butler [employer] Work Phone: [facility] 01-17-2024 15:35-0500 Body height 165.1 cm [facility] 01-17-2024 15:35-0500 Body mass index (BMI) [Ratio] 44.7 kg/m2 [facility] 01-17-2024 15:35-0500 Body weight 122.01 kg [facility] 01-17-2024 15:35-0500 Diastolic blood pressure 68 mm[Hg] [facility] 01-17-2024 15:35-0500 Heart rate 78 /min [facility] 01-17-2024 15:35-0500 SaO2% (BldA) [Mass fraction] 98 % [facility] [facility] 01-17-2024 15:35-0500 Systolic blood pressure 110 mm[Hg] [facility] 12-24-2023 15:29-0500 Body height 165.1 cm Alyssa Butterfield MD Work Phone: [facility] 12-24-2023 15:29-0500 Body mass index (BMI) [Ratio] 43.9 kg/m2 Alyssa Butterfield MD Work Phone: [facility] 12-24-2023 15:29-0500 Body weight 119.74 kg Alyssa Butterfield MD Work Phone: [facility] 12-24-2023 15:29-0500 Diastolic blood pressure 78 mm[Hg] Alyssa Butterfield MD Work Phone: [facility] 12-24-2023 15:29-0500 Heart rate 86 /min Alyssa Butterfield MD Work Phone: [facility] 12-24-2023 15:29-0500 SaO2% (BldA) [Mass fraction] 97 % Alyssa Butterfield MD Work Phone: [facility] 12-24-2023 15:29-0500 Systolic blood pressure 110 mm[Hg] Alyssa Butterfield MD Work Phone: [facility] 11-20-2023 08:15-0400 Body mass index (BMI) [Ratio] 45.73 kg/m2 Christopher Alex DO Work Phone: [facility] 11-20-2023 08:15-0400 Body weight 124.65 kg Christopher Alex DO Work Phone: [facility] 11-20-2023 08:15-0400 Diastolic blood pressure 80 mm[Hg] Christopher Alex DO Work Phone: [facility] 11-20-2023 08:15-0400 Heart rate 91 /min Christopher Alex DO Work Phone: [facility] 11-20-2023 08:15-0400 SaO2% (BldA) [Mass fraction] 95 % Christopher Alex DO Work Phone: [facility] 11-20-2023 08:15-0400 Systolic blood pressure 131 mm[Hg] Christopher Alex DO Work Phone: [facility] 10-22-2023 13:54-0400 Body height 165.1 cm MD Alyssa Butterfield Work Phone: [facility] 10-22-2023 13:54-0400 Body mass index (BMI) [Ratio] 46.2 kg/m2 MD Alyssa Butterfield Work Phone: [facility] 10-22-2023 13:54-0400 Body weight 126.09 kg MD Alyssa Butterfield Work Phone: [facility] 10-22-2023 13:54-0400 Diastolic blood pressure 64 mm[Hg] MD Alyssa Butterfield Work Phone: [facility] 10-22-2023 13:54-0400 Heart rate 80 /min MD Alyssa Butterfield Work Phone: [facility] 10-22-2023 13:54-0400 Systolic blood pressure 96 mm[Hg] MD Alyssa Butterfield Work Phone: [facility] 10-15-2023 15:49-0400 Body height 165.1 cm Naya Butler [employer] Work Phone: [facility] 10-15-2023 15:49-0400 Body mass index (BMI) [Ratio] 44.93 kg/m2 Naya Butler [employer] Work Phone: [facility] 10-15-2023 15:49-0400 Body weight 122.47 kg Naya Butler [employer] Work Phone: [facility] 10-15-2023 15:49-0400 Diastolic blood pressure 72 mm[Hg] Naya Butler [employer] Work Phone: [facility] 10-15-2023 15:49-0400 Heart rate 87 /min Naya Butler [employer] Work Phone: [facility] 10-15-2023 15:49-0400 SaO2% (BldA) [Mass fraction] 97 % Naya Butler [employer] Work Phone: [facility] 10-15-2023 15:49-0400 Systolic blood pressure 134 mm[Hg] Naya Butler [employer] Work Phone: [facility] 09-27-2023 13:55-0400 Body height 165.1 cm MD Alyssa Butterfield Work Phone: [facility] 09-27-2023 13:55-0400 Body mass index (BMI) [Ratio] 45.1 kg/m2 MD Alyssa Butterfield Work Phone: [facility] 09-27-2023 13:55-0400 Body weight 122.92 kg MD Alyssa Butterfield Work Phone: [facility] 09-27-2023 13:55-0400 Diastolic blood pressure 61 mm[Hg] MD Alyssa Butterfield Work Phone: [facility] 09-27-2023 13:55-0400 Heart rate 101 /min MD Alyssa Butterfield Work Phone: [facility] 09-27-2023 13:55-0400 Systolic blood pressure 94 mm[Hg] MD Alyssa Butterfield Work Phone: [facility] 09-25-2023 09:35-0400 Diastolic blood pressure 74 mm[Hg] MD Alyssa Butterfield Work Phone: [facility] 09-25-2023 09:35-0400 Heart rate 72 /min MD Alyssa Butterfield Work Phone: [facility] 09-25-2023 09:35-0400 Respiratory rate 16 /min MD Alyssa Butterfield Work Phone: [facility] 09-25-2023 09:35-0400 SaO2% (BldA) [Mass fraction] 96 % MD Alyssa Butterfield Work Phone: [facility] 09-25-2023 09:35-0400 Systolic blood pressure 117 mm[Hg] MD Alyssa Butterfield Work Phone: [facility] 09-25-2023 07:59-0400 Body height 165.1 cm MD Alyssa Butterfield Work Phone: [facility] 09-25-2023 07:59-0400 Body weight 120.2 kg MD Alyssa Butterfield Work Phone: [facility] 09-06-2023 09:51-0400 Body height 165.1 cm MD Alyssa Butterfield Work Phone: [facility] 09-06-2023 09:51-0400 Body mass index (BMI) [Ratio] 44.7 kg/m2 MD Alyssa Butterfield Work Phone: [facility] 09-06-2023 09:51-0400 Body weight 122.01 kg MD Alyssa Butterfield Work Phone: [facility] 09-06-2023 09:51-0400 Diastolic blood pressure 69 mm[Hg] MD Alyssa Butterfield Work Phone: [facility] 09-06-2023 09:51-0400 Heart rate 88 /min MD Alyssa Butterfield Work Phone: [facility] 09-06-2023 09:51-0400 Systolic blood pressure 105 mm[Hg] MD Alyssa Butterfield Work Phone: [facility] 08-16-2023 09:30-0400 Body height 165.1 cm MD Alyssa Butterfield Work Phone: [facility] 08-16-2023 09:30-0400 Body mass index (BMI) [Ratio] 44.6 kg/m2 MD Alyssa Butterfield Work Phone: [facility] 08-16-2023 09:30-0400 Body temperature 98.4 [degF] MD Alyssa Butterfield Work Phone: [facility] 08-16-2023 09:30-0400 Body weight 121.56 kg MD Alyssa Butterfield Work Phone: [facility] 08-16-2023 09:30-0400 Diastolic blood pressure 78 mm[Hg] MD Alyssa Butterfield Work Phone: [facility] 08-16-2023 09:30-0400 Heart rate 74 /min MD Alyssa Butterfield Work Phone: [facility] 08-16-2023 09:30-0400 SaO2% (BldA) [Mass fraction] 98 % MD Alyssa Butterfield Work Phone: [facility] 08-16-2023 09:30-0400 Systolic blood pressure 126 mm[Hg] MD Alyssa Butterfield Work Phone: [facility] 07-31-2023 15:22-0400 Body height 165.1 cm MD Alyssa Butterfield Work Phone: [facility] 07-31-2023 15:22-0400 Body mass index (BMI) [Ratio] 44.4 kg/m2 MD Alyssa Butterfield Work Phone: [facility] 07-31-2023 15:22-0400 Body temperature 98.5 [degF] MD Alyssa Butterfield Work Phone: [facility] 07-31-2023 15:22-0400 Body weight 121.1 kg MD Alyssa Butterfield Work Phone: [facility] 07-31-2023 15:22-0400 Diastolic blood pressure 87 mm[Hg] MD Alyssa Butterfield Work Phone: [facility] 07-31-2023 15:22-0400 Heart rate 90 /min MD Alyssa Butterfield Work Phone: [facility] 07-31-2023 15:22-0400 Systolic blood pressure 137 mm[Hg] MD Alyssa Butterfield Work Phone: [facility] 06-28-2023 13:48-0400 Body height 165.1 cm MD Alyssa Butterfield Work Phone: [facility] 06-28-2023 13:48-0400 Body mass index (BMI) [Ratio] 44.6 kg/m2 MD Alyssa Butterfield Work Phone: [facility] 06-28-2023 13:48-0400 Body weight 121.56 kg MD Alyssa Butterfield Work Phone: [facility] 06-28-2023 13:48-0400 Diastolic blood pressure 69 mm[Hg] MD Alyssa Butterfield Work Phone: [facility] 06-28-2023 13:48-0400 Heart rate 83 /min MD Alyssa Butterfield Work Phone: [facility] 06-28-2023 13:48-0400 Systolic blood pressure 104 mm[Hg] MD Alyssa Butterfield Work Phone: [facility] 05-30-2023 09:59-0400 Body height 165.1 cm MD Alyssa Butterfield Work Phone: [facility] 05-30-2023 09:59-0400 Body mass index (BMI) [Ratio] 44.1 kg/m2 MD Alyssa Butterfield Work Phone: [facility] 05-30-2023 09:59-0400 Body weight 120.31 kg MD Alyssa Butterfield Work Phone: [facility] 05-30-2023 09:59-0400 Diastolic blood pressure 80 mm[Hg] MD Alyssa Butterfield Work Phone: [facility] 05-30-2023 09:59-0400 Heart rate 92 /min MD Alyssa Butterfield Work Phone: [facility] 05-30-2023 09:59-0400 SaO2% (BldA) [Mass fraction] 98 % MD Alyssa Butterfield Work Phone: [facility] 05-30-2023 09:59-0400 Systolic blood pressure 124 mm[Hg] MD Alyssa Butterfield Work Phone: [facility] 04-30-2023 13:14-0400 Body height 165.1 cm MD Alyssa Butterfield Work Phone: [facility] 04-30-2023 13:14-0400 Body mass index (BMI) [Ratio] 43.8 kg/m2 MD Alyssa Butterfield Work Phone: [facility] 04-30-2023 13:14-0400 Body weight 119.4 kg MD Alyssa Butterfield Work Phone: [facility] 04-30-2023 13:14-0400 Diastolic blood pressure 72 mm[Hg] MD Alyssa Butterfield Work Phone: [facility] 04-30-2023 13:14-0400 Heart rate 92 /min MD Alyssa Butterfield Work Phone: [facility] 04-30-2023 13:14-0400 Systolic blood pressure 104 mm[Hg] MD Alyssa Butterfield Work Phone: [facility] 04-18-2023 10:28-0400 Body height 165.1 cm MD Alyssa Butterfield Work Phone: [facility] 04-18-2023 10:28-0400 Body mass index (BMI) [Ratio] 42.4 kg/m2 MD Alyssa Butterfield Work Phone: [facility] 04-18-2023 10:28-0400 Body temperature 95.1 [degF] MD Alyssa Butterfield Work Phone: [facility] 04-18-2023 10:28-0400 Body weight 115.72 kg MD Alyssa Butterfield Work Phone: [facility] 04-18-2023 10:28-0400 Diastolic blood pressure 69 mm[Hg] MD Alyssa Butterfield Work Phone: [facility] 04-18-2023 10:28-0400 Heart rate 83 /min MD Alyssa Butterfield Work Phone: [facility] 04-18-2023 10:28-0400 Systolic blood pressure 92 mm[Hg] MD Alyssa Butterfield Work Phone: [facility] 04-16-2023 08:55-0400 Body height 165.1 cm MD Alyssa Butterfield Work Phone: [facility] 04-16-2023 08:55-0400 Body mass index (BMI) [Ratio] 42.5 kg/m2 MD Alyssa Butterfield Work Phone: [facility] 04-16-2023 08:55-0400 Body temperature 96.1 [degF] MD Alyssa Butterfield Work Phone: [facility] 04-16-2023 08:55-0400 Body weight 115.83 kg MD Alyssa Butterfield Work Phone: [facility] 04-16-2023 08:55-0400 Diastolic blood pressure 79 mm[Hg] MD Alyssa Butterfield Work Phone: [facility] 04-16-2023 08:55-0400 Heart rate 79 /min MD Alyssa Butterfield Work Phone: [facility] 04-16-2023 08:55-0400 Systolic blood pressure 122 mm[Hg] MD Alyssa Butterfield Work Phone: [facility] 03-08-2023 08:30-0500 Body height 165.1 cm MD Alyssa Butterfield Work Phone: [facility] 03-08-2023 08:30-0500 Body weight 118.47 kg MD Alyssa Butterfield Work Phone: [facility] 03-08-2023 08:30-0500 Diastolic blood pressure 68 mm[Hg] MD Alyssa Butterfield Work Phone: [facility] 03-08-2023 08:30-0500 Systolic blood pressure 102 mm[Hg] MD Alyssa Butterfield Work Phone: [facility] 02-27-2022 09:45-0500 Body height 165.1 cm Alyssa Butterfield Other [employer] [facility] [employer] Other 02-27-2022 09:45-0500 Body mass index (BMI) [Ratio] 43.26 kg/m2 Alyssa Butterfield Other [employer] [facility] [employer] Other 02-27-2022 09:45-0500 Body weight 117.94 kg Alyssa Butterfield Other [employer] Other 02-27-2022 09:45-0500 Diastolic blood pressure 80 mm[Hg] Alyssa Butterfield Other [employer] Other 02-27-2022 09:45-0500 SaO2% (BldA) [Mass fraction] 91 % Alyssa Butterfield Other [employer] Other 02-27-2022 09:45-0500 Systolic blood pressure 120 mm[Hg] Alyssa Butterfield Other [employer] Other Encounters Encounter Date Encounter Type Care Provider Facility Start: 05-15-2024 End: 05-15-2024 Office outpatient new 60 minutes Fran Oseguera MD Work Phone: [facility] Comment on above: Encounter to [facility]; Mixed hyperlipidemia; SOB (shortness of breath) on exertion; Lightheadedness; Palpitations; Near syncope; Vertigo; Snoring; Insulin resistance; PCOS (polycystic ovarian syndrome); Family history of breast cancer; Adrenal mass 1 cm to 4 cm in diameter with no history of malignant neoplasm; Anxiety; Vitamin D deficiency; Hx of section; BMI 45.0-49.9, adult (Multi); Never smoked tobacco; Tachycardia Start: 05-01-2024 End: 05-01-2024 ambulatory [facility] Work Phone: Start: 05-01-2024 End: 05-01-2024 Patient encounter procedure [facility] Physician [facility] Work Phone: Start: 04-29-2024 End: 04-29-2024 ambulatory NAYA BUTLER Not Available Start: 04-01-2024 End: 04-01-2024 Telephone encounter Naya Butler [employer] Work Phone: [facility] Start: 04-01-2024 End: 04-01-2024 ambulatory Yun Naranjo PT Work Phone: [facility] Comment on above: Cervicalgia (Primary Dx); Vertigo of central origin Start: 03-27-2024 End: 03-27-2024 [facility] Work Phone: Start: 03-27-2024 End: 03-27-2024 Patient encounter procedure [facility] Work Phone: Start: 03-11-2024 End: 03-11-2024 Office outpatient visit 15 minutes Naya Butler [employer] Work Phone: [facility] Comment on above: Dizziness (Primary D x); Intracranial hypertension; Class 3 severe obesity due to excess calories with serious comorbidity and body mass index (BMI) of 45.0 to 49.9 in adult ([facility]); Encounter for medication monitoring Start: 03-11-2024 End: 03-11-2024 ambulatory NAYA BUTLER Not Available Start: 03-11-2024 End: 03-11-2024 Bamboo flowsheet Naya Butler [employer] Work Phone: [facility] Start: 03-11-2024 End: 03-11-2024 Bamboo flowsheet Naya Butler [employer] Work Phone: [facility] Start: 03-11-2024 End: 03-13-2024 Telephone encounter Naya Butler [employer] Work Phone: [facility] Comment on [...] counseling Start: 03-06-2024 End: 03-06-2024 ambulatory [facility] Work Phone: Start: 02-26-2024 End: 02-26-2024 ambulatory [facility] [place] Work Phone: Start: 02-26-2024 End: 02-26-2024 Patient encounter procedure [facility] Work Phone: Start: 02-14-2024 End: 02-14-2024 ambulatory [facility] Work Phone: Start: 02-14-2024 End: 02-14-2024 Patient encounter procedure [facility] Work Phone: Start: 02-05-2024 End: 02-05-2024 Treatment Yun Naranjo PT Work Phone: [facility] Comment on above: Cervicalgia (Primary Dx); Vertigo of central origin; Balance disorder Start: 01-23-2024 End: 01-23-2024 Evaluation Yun Naranjo PT Work Phone: [facility] Comment on above: Cervicalgia (Primary Dx); Balance disorder; Dizziness; Vertigo of central origin Start: 01-22-2024 End: 01-22-2024 Bamboo flowsheet Naya Luke [employer] Work Phone: [facility] Start: 01-22-2024 End: 01-22-2024 Bamboo flowsheet Naya Luke [employer] Work Phone: [facility] Start: 01-22-2024 End: 01-22-2024 Clinisync Result Encounter Naya Butler [employer] Work Phone: [facility] Unsolicited Start: 01-22-2024 End: 01-22-2024 Office outpatient visit 25 minutes Naya Butler [employer] Work Phone: [facility] Comment on above: Dizziness (Primary D x); Intracranial hypertension; Class 3 severe obesity due to excess calories with serious comorbidity and body mass index (BMI) of 45.0 to 49.9 in adult ([facility]); Encounter for medication monitoring Start: 01-22-2024 End: 01-22-2024 ambulatory NAYA BUTLER Not Available Start: 01-17-2024 End: 01-17-2024 Patient encounter procedure [facility] Work Phone: Start: 12-24-2023 End: 12-24-2023 ambulatory Alyssa Butterfield MD Work Phone: [facility] Work Phone: Start: 12-24-2023 End: 12-24-2023 Patient encounter procedure Alyssa Butterfield MD Work Phone: [facility] Physician [facility] Work Phone: Start: 12-20-2023 Non-patient / Non-visit Alyssa Buttefrield MD Work Phone: [facility] Work Phone: Start: 11-20-2023 End: 11-20-2023 Bamboo flowsheet Terrellopher Alex DO Work Phone: [employer] [facility] Start: 11-20-2023 End: 11-20-2023 Bamboo flowsheet Terrellopher Alex DO Work Phone: [facility] Start: 11-20-2023 End: 11-20-2023 Office outpatient visit 25 minutes Christopher Alex DO Work Phone: [facility] Comment on above: Intracranial hyperte nsion (Primary Dx); Dizziness; Class 3 severe obesity due to excess calories with serious comorbidity and body mass index (BMI) of 45.0 to 49.9 in adult ([facility]) Start: 11-20-2023 End: 11-20-2023 ambulatory BONNIE JOHNSON Not Available Start: 11-09-2023 End: 11-09-2023 Patient encounter procedure MD Alyssa Butterfield Work Phone: [facility] [place] Work Phone: Start: 11-09-2023 End: 11-09-2023 ambulatory MD Alyssa Butterfield Work Phone: [facility] Work Phone: Start: 10-23-2023 End: 10-23-2023 Clinisync Result Encounter Naya Butler NP Work Phone: [facility] Unsolicited Start: 10-23-2023 End: 10-23-2023 Clinisync Result Encounter Naya Butler [employer] Work Phone: [facility] Unsolicited Start: 10-22-2023 End: 10-22-2023 ambulatory MD Alyssa Butterfield Work Phone: [facility] Work Phone: Start: 10-22-2023 End: 10-22-2023 Patient encounter procedure MD Alyssa Butterfield Work Phone: [facility] Work Phone: Start: 10-18-2023 End: 10-18-2023 Telephone encounter Shima Vallecillo MA [facility] Start: 10-16-2023 End: 10-16-2023 Telephone encounter Naya Butler [employer] Work Phone: [facility] Start: 10-15-2023 End: 10-15-2023 ambulatory NAYA BUTLER Not Available Start: 10-15-2023 End: 10-15-2023 Office outpatient visit 25 minutes Naya Butler [employer] Work Phone: [facility] Comment on above: Intracranial hyperte nsion (Primary Dx); Encounter for medication monitoring; Headache, unspecified headache type; Dizziness Start: 10-15-2023 End: 10-15-2023 Bamboo flowsheet Naya Butler [employer] Work Phone: [facility] Start: 10-15-2023 End: 10-15-2023 Bamboo flowsheet Naya Butler [employer] Work Phone: [facility] Start: 09-27-2023 End: 09-27-2023 ambulatory MD Alyssa Butterfield Work Phone: [facility] Work Phone: Start: 09-27-2023 End: 09-27-2023 Patient encounter procedure MD Alyssa Butterfield Work Phone: [facility] Work Phone: Start: 09-25-2023 End: 09-25-2023 Patient encounter procedure MD Alyssa Butterfield Work Phone: [facility] [place] Work Phone: Start: 09-25-2023 End: 09-25-2023 ambulatory MD Alyssa Butterfield Work Phone: [facility] Work Phone: Start: 09-06-2023 End: 09-06-2023 ambulatory MD Alyssa Butterfield Work Phone: [facility] Work Phone: Start: 09-06-2023 End: 09-06-2023 Patient encounter procedure MD Alyssa Butterfield Work Phone: [facility] Work Phone: Start: 08-29-2023 End: 08-29-2023 ambulatory BONNIE JOHNSON Not Available Start: 08-27-2023 End: 08-27-2023 ambulatory NAYA LUKE Not Available Start: 08-16-2023 End: 08-16-2023 ambulatory MD Alyssa Butterfield Work Phone: [facility] Work Phone: Start: 08-16-2023 End: 08-16-2023 Patient encounter procedure MD Alyssa Butterfield Work Phone: [facility] Work Phone: Start: 08-15-2023 End: 08-15-2023 Patient encounter procedure MD Alyssa Butterfield Work Phone: [facility] Work Phone: Start: 08-15-2023 End: 08-15-2023 ambulatory MD Alyssa Butterfield Work Phone: [facility] Work Phone: Start: 08-13-2023 End: 08-13-2023 Emergency department patient visit ALYSSA BUTTERFIELD [facility] Start: 07-31-2023 End: 07-31-2023 ambulatory MD Alyssa Butterfield Work Phone: [facility] Work Phone: Start: 07-31-2023 End: 07-31-2023 Patient encounter procedure MD Alyssa Butterfield Work Phone: [facility] Work Phone: Start: 07-24-2023 End: 07-24-2023 ambulatory BONNIE BOUCHERETT Not Available Start: 06-28-2023 End: 06-28-2023 ambulatory MD Alyssa Butterfield Work Phone: [facility] Work Phone: Start: 06-28-2023 End: 06-28-2023 Patient encounter procedure MD Alyssa Butterfield Work Phone: [facility] Work Phone: Start: 06-27-2023 End: 06-27-2023 ambulatory ALEXANDER GEORGE Not Available Start: 06-20-2023 End: 06-20-2023 ambulatory MERISSA CRAFT Not Available Start: 06-08-2023 Non-patient / Non-visit MD Susanna Butterfield Work Phone: [facility] Work Phone: Start: 05-30-2023 End: 05-30-2023 ambulatory MD Alyssa Butterfield Work Phone: [facility] Work Phone: Start: 05-30-2023 End: 05-30-2023 Patient encounter procedure MD Alyssa Butterfield Work Phone: [facility] Work Phone: Start: 05-25-2023 End: 05-25-2023 ambulatory MD Alyssa Butterfield Work Phone: [facility] Work Phone: Start: 05-25-2023 End: 05-25-2023 Discharged Recurring MD Alyssa Butterfield Work Phone: [facility] Start: 05-25-2023 Registered Recurring MD Alyssa Butterfield Work Phone: [facility] Start: 04-30-2023 End: 04-30-2023 ambulatory MD Alyssa Butterfield Work Phone: [facility] Work Phone: Start: 04-30-2023 End: 04-30-2023 Patient encounter procedure MD Alyssa Butterfield Work Phone: [facility] Physician [facility] Work Phone: Start: 04-25-2023 Registered Recurring MD Alyssa Butterfield Work Phone: [facility] Start: 04-18-2023 End: 04-18-2023 Patient encounter procedure MD Alyssa Butterfield Work Phone: [facility] Physician [facility] Work Phone: Start: 04-16-2023 End: 04-16-2023 Patient encounter procedure MD Alyssa Butterfield Work Phone: [facility] Physician [facility] Work Phone: Start: 03-13-2023 End: 03-13-2023 ambulatory Alyssa Butterfield Other [employer] Other Start: 03-13-2023 Telephone encounter Alyssa Butterfield [facility] Start: 03-08-2023 End: 03-08-2023 Patient encounter procedure MD Alyssa Butterfield Work Phone: [facility]- Start: 05-17-2022 End: 05-17-2022 ambulatory Alyssa Butterfield Other [employer] Other Start: 05-17-2022 Telephone encounter Alyssa Butterfield [facility] Start: 02-27-2022 End: 02-27-[address] RICCI MULLINS Facility:[facility] Start: 02-27-2022 Office outpatient vi sit 15 minutes Alyssa Butterfield [facility] Start: 02-16-2022 Gynecological examination normal Alyssa Butterfield Other [employer] Other Start: 01-23-2022 Adult health examination Rani Butterfield Other [employer] Other Start: 01-23-2022 Gynecological examination normal Alyssa Butterfield Other [employer] Other Start: 09-06-2021 End: 09-06-[address] [...] 01-22-2024 ALL BASIC METABOLIC PANEL Naya Butler [employer] Work Phone: Start: 11-09-2023 MRI venography MD Alyssa Butterfield Work Phone: Start: 10-23-2023 [facility] CMP (CMP) (FOR REMOTE [facility] USE) Naya Butler [employer] Work Phone: Start: 09-25-2023 Aerobic microbial culture [...] in Cervix by Cyto stain Naya Butler [employer] Work Phone: Start: 08-23-2021 Extraction of Products [...] of 2) Zoster Vaccines (1 of 2) [facility] Start: 07-04-2031 DTaP/Tdap/Td Vaccines (3 - Td or Tdap) DTaP/Tdap/Td Vaccines (3 - Td or Tdap) [facility] Start: 03-05-2028 Screening for malignant neoplasm of cervix [facility] Start: 03-06-2027 Screening for malignant neoplasm of cervix [facility] Start: 02-27-2027 Screening for malignant neoplasm of cervix [facility] Start: 03-11-2025 End: 03-11-2025 Patient encounter procedure 03/11/2025 4:00 PM EST Office Visit [facility] [address] [place] [address] Ricci Mullins, [address] [place], [place] [phone] [facility] Start: 10-06-2024 Influenza vaccination Influenza Vaccine (Season Ended) [facility] Start: 08-21-2024 End: 08-21-2024 Patient encounter procedure 08/21/2024 1:00 PM EDT Office Visit [facility] [address] [facility] [address] [place] [address] Fran Oseguera MD [address] [facility] [address] [place] [address] [facility] Start: 07-23-2024 End: 07-23-2024 Patient encounter procedure 07/23/2024 7:45 AM EDT Appointment Marci [place] [address] Marci Alcazar Start: 05-28-2024 End: 05-28-2024 Patient encounter procedure 05/28/2024 2:30 PM EDT Appointment Marci [address] [place] [address] Marci Alcazar Start: 05-19-2024 End: 05-19-2024 Professional / ancillary services management 05/19/2024 8:00 AM EDT Ancillary Procedure Inge [address] [place] [address] [facility] Start: 05-15-2024 End: 05-15-2025 Alanine aminotransferase [Enzymatic activity/volume] in Serum or Plasma by With P-5'-P Alanine Aminotransferase Lab Routine Mixed hyperlipidemia Expected: 05/15/2024, Expires: 05/15/2025 [facility] Work Phone: Comment on above: Expected: 05/15/2024, Expires: Start: 05-15-2024 End: 05-15-2025 Aspartate aminotransferase [Enzymatic activity/volume] in Serum or Plasma by With P-5'-P Aspartate Aminotransferase Lab Routine Mixed hyperlipidemia Expected: 05/15/2024, Expires: 05/15/2025 [facility] Work Phone: Comment on above: Expected: 05/15/2024, Expires: Start: 05-15-2024 End: 05-15-2025 Cardiac stress study Procedure Stress Test Cardiac Services Routine SOB (shortness of breath) on exertion Lightheadedness Palpitations Near syncope Vertigo Expected: 05/15/2024 (Approximate), Expires: 05/15/2025 [facility] Work Phone: Comment on above: Expected: 05/15/2024 (Approximate), Expi res: 05/15/2025 Start: 05-15-2024 End: 05-15-2025 CBC panel - Blood by Automated count CBC Lab Routine Mixed hyperlipidemia SOB (shortness of breath) on exertion Lightheadedness Palpitations Near syncope Vertigo Expected: 05/15/2024, Expires: 05/15/2025 [facility] Work Phone: Comment on above: Expected: 05/15/2024, Expires: Start: 05-15-2024 End: 05-15-2025 Comprehensive metabolic 2000 panel - Serum or Plasma Comprehensive Metabolic Panel Lab Routine Mixed hyperlipidemia SOB (shortness of breath) on exertion Lightheadedness Palpitations Expected: 05/15/2024, Expires: 05/15/2025 [facility] Work Phone: Comment on above: Expected: 05/15/2024, Expires: Start: 05-15-2024 End: 05-15-2025 Holter monitor study Holter Or Event Diversity Intern Cardiac Services Routine Lightheadedness Palpitations Expected: 05/15/2024 (Approximate), Expires: 05/15/2025 [facility] Work Phone: Comment on above: Expected: 05/15/2024 (Approximate), Expi res: 05/15/2025 Start: 05-15-2024 End: 05-15-2025 Lipid 1996 panel - Serum or Plasma Lipid Panel Lab Routine Mixed hyperlipidemia Expected: 05/15/2024, Expires: 05/15/2025 [facility] Work Phone: Comment on above: Expected: 05/15/2024, Expires: Start: 05-15-2024 End: 05-15-2025 Thyrotropin [Units/volume] in Serum or Plasma Thyroid Stimulating Hormone Lab Routine SOB (shortness of breath) on exertion Lightheadedness Expected: 05/15/2024, Expires: 05/15/2025 [facility] Work Phone: Comment on above: Expected: 05/15/2024, Expires: Start: 05-15-2024 End: 05-15-2026 Tilt table study Tilt Table Cardiac Services Routine SOB (shortness of breath) on exertion Lightheadedness Palpitations Near syncope Vertigo Expected: 05/15/2024 (Approximate), Expires: 05/15/2026 [facility] Service Area Work Phone: Comment on above: Expected: 05/15/2024 (Approximate), Expi res: 05/15/2026 Start: 05-15-2024 End: 05-15-2026 Heart Transthoracic Transthoracic Echo Complete Echocardiography Routine SOB (shortness of breath) on exertion Vertigo Expected: 05/15/2024 (Approximate), Expires: 05/15/2026 [facility] Work Phone: Comment on above: Expected: 05/15/2024 (Approximate), Expi res: 05/15/2026 Start: 04-29-2024 End: 04-29-2024 Patient encounter procedure 04/29/2024 2:40 PM EDT Office Visit [facility] [place] [address] [place] [address] Naya Butler NP [address] [place] [address] [facility] Start: 03-11-2024 End: 03-11-2024 Patient encounter procedure [facility] [place] [address] Comment on above: Arrived Start: 03-06-2024 Patient referral [facility] Work Phone: Start: 03-06-2024 End: 03-06-2024 Patient encounter procedure [facility] Comment on above: Arrived Start: 02-05-2024 End: 02-05-2024 ambulatory 02/05/2024 8:30 AM EST Treatment [facility] [address] [place] [phone] Yun Naranjo, PT [address] [place] [address] [facility] Start: 01-23-2024 End: 01-23-2024 ambulatory 01/23/2024 7:30 AM EST Evaluation [facility] [address] [place] [phone] Yun Naranjo, PT [address] [place] [address] [facility] Start: 01-22-2024 End: 01-21-2025 Basic metabolic 1998 panel - Serum or Plasma Basic metabolic panel Lab Routine Encounter for medication monitoring Expected: 01/22/2024 (Approximate), Expires: 01/21/2025 [facility] Work Phone: Comment on above: Expected: 01/22/2024 (Approximate), Expi res: 01/21/2025 Start: 01-22-2024 End: 01-22-2024 Patient encounter procedure 01/22/2024 1:00 PM EST Office Visit [facility] [address] [place] [phone] Naya Butler NP [address] [place] [address] Arrived [facility] Comment on above: Arrived Start: 01-01-2024 Patient referral [facility] Work Phone: Start: 11-20-2023 End: 11-20-2023 Patient encounter procedure 11/20/2023 8:15 AM EDT Office Visit [facility] [place] [address] [place] [phone] Bonnie Johnson DO [address] [place], [place] [phone] Arrived [facility] [place] [address] Comment on above: Arrived Start: 11-19-2023 End: 11-19-2023 Patient encounter procedure 11/19/2023 12:15 PM EDT Office Visit [facility] [place] [address] [place] [address] Bonnie Johnson DO [address] [place], [place] [id number] [facility] [address] Start: 10-16-2023 End: 10-14-2024 MRA Head vessels WO and W contrast IV MR venous head w and wo IV contrast Imaging Routine Intracranial hypertension Expected: 10/16/2023 (Approximate), Expires: 10/14/2024 [facility] Comment on above: Expected: 10/16/2023 (Approximate), Expi res: 10/14/2024 Start: 10-15-2023 End: 10-14-2024 Comprehensive metabolic 2000 panel - Serum or Plasma Comprehensive metabolic panel Lab Routine Encounter for medication monitoring Expected: 10/15/2023 (Approximate), Expires: 10/14/2024 [facility] Work Phone: Comment on above: Expected: 10/15/2023 (Approximate), Expi res: 10/14/2024 Start: 10-07-2023 COVID-19 Vaccine ( season) COVID-19 Vaccine () [facility] Start: 10-07-2023 Influenza vaccination Influenza Vaccine (#1) [facility] Start: 09-25-2023 CSF (PCR) CSF (PCR) [facility] Start: 09-25-2023 Microscopic observation [Identifier] in Unspecified specimen by Gram stain [facility] Start: 09-25-2023 End: 09-25-2023 [facility] Start: 09-25-2023 Cerebrospinal fluid culture [facility] Start: 06-28-2023 Patient referral [facility] Work Phone: Start: 05-07-2023 Diabetes mellitus screening Diabetes Screening [facility] Start: 04-16-2023 Patient referral [facility] Work Phone: Start: 02-27-2009 Screening for malignant neoplasm of cervix HPV/Cotest [facility] Start: 02-27-2007 Hepatitis B Vaccines (1 of 3 - 19+ 3-dose series) Hepatitis B Vaccines (1 of 3 - 19+ 3-dose series) [facility] Start: 02-27-2006 Hepatitis C screening Hepatitis C Screening [facility] Start: 02-27-2001 Varicella vaccination Varicella Vaccines (1 of 2 - 13+ 2-dose series) [facility] Start: 02-27-1989 MMR Vaccines (1 of 1 - Standard series) MMR Vaccines (1 of 1 - Standard series) [facility] Start: 1988 HIV screening HIV Screening [facility] Start: 1988 Lipid panel Lipid Panel [facility] Start: 1988 Yearly Adult Physical Yearly Adult Physical [facility] Bacteria identified in Unspecified specimen by Aerobe culture [facility] Bacteria identified in Unspecified specimen by Anaerobe culture [facility] Cell count, cerebros melinda fluid [facility] Cerebrospinal fluid examination [facility] Cytology Cervical or vaginal smear or scraping study Pap Smear Pathology and Cytology Routine Well woman exam with routine gynecological exam Ordered: 03/06/2024 [facility] Work Phone: Comment on above: Ordered: 03/06/2024 Evaluation of cerebrospinal fluid [facility] Fluid sample volume measurement [facility] Human papilloma viru s DNA [Presence] in Unspecified specimen by Probe with amplification HPV DNA probe, amplified Microbiology Routine Well woman exam with routine gynecological exam Ordered: 03/06/2024 [facility] Comment on above: Ordered: 03/06/2024 Meningitis+Encephali tis pathogens DNA and RNA panel - Cerebral spinal fluid by NIMA with non-probe detection [facility] Patient Education [facility] Lumb ar Puncture Discharge Instructions [facility] Work Phone: Patient referral [facility] Work Phone: [facility] Immunizations Immunization Date Immunization Notes Care Provider Braxton marcus 11-18-2022 influenza virus vaccine, unspecified formulation Naya Butler [employer] Work Phone: [facility] 12-10-2021 influenza virus vaccine, split virus (incl. purified surface antigen) Alyssa Butterfield Other [employer] Other 12-10-2021 influenza virus vaccine, unspecified formulation MD Alyssa Butterfield Work Phone: [facility] 12-10-2021 Influenza, injectabl e, Madin Effie Canine Kidney, preservative free, quadrivalent Naya Butler [employer] Work Phone: [facility] 07-03-2021 tetanus toxoid, reduced diphtheria toxoid, and acellular pertussis vaccine, adsorbed Naya Butler [employer] Work Phone: [facility] 11-30-2020 COVID-19 mRNA-1273 (Moderna) MD Alyssa Butterfield Work Phone: [facility] 03-18-2020 COVID-19 mRNA-1273 (Moderna) MD Alyssa Butterfield Work Phone: [facility] 02-19-2020 COVID-19 mRNA-1276 (Moderna) MD Alyssa Butterfield Work Phone: [facility] 10-29-2018 influenza, injectabl e, quadrivalent, preservative free Naya Butler [employer] Work Phone: [facility] 12-29-2017 tetanus toxoid, reduced diphtheria toxoid, and acellular pertussis vaccine, adsorbed Naya Butler [employer] Work Phone: [facility] 11-09-2017 influenza, injectabl e, quadrivalent, preservative free Naya Butler [employer] Work Phone: [facility] 10-24-2016 influenza, injectabl e, quadrivalent, preservative free Naya Butler [employer] Work Phone: [facility] 11-03-2014 influenza, seasonal, injectable, preservative free Naya Butler [employer] Work Phone: [facility] 10-27-2013 tetanus and diphther ia toxoids, adsorbed, preservative free, for adult use (5 Lf of tetanus toxoid and 2 Lf of diphtheria toxoid) Alyssa Butterfield Other [facility] Payers Date Payer Category Payer Self-pay [id number] 2022 Managed Care (Private) [facility] [id number] 2022 Private Health Insurance [id number] .[id number]. [id number] 1988 Unknown [id number] 2.16.840.1.004762.3.579.2. 593 1988 Unknown [id number] 2.16.840.1.037182.3.579.2. 593 1988 Unknown [id number] 2.16.840.1.809014.3.579.2. 593 1988 Unknown [id number] 2.16.840.1.191536.3.579.2. 593 1988 Unknown [id number] 2.16.840.1.013868.3.579.2. 593 1988 Unknown [id number] 2.16.840.1.100081.3.579.2. 593 1988 Unknown [id number] 2.16.840.1.514984.3.579.2. 593 1988 Unknown [id number] 2.16.840.1.716483.3.579.2. 593 1988 Unknown [id number] 2.16.840.1.275227.3.579.2. 593 1988 Unknown [id number] 2.16.840.1.799441.3.579.2. 593 1988 Unknown [id number] 2.16.840.1.126332.3.579.2. 593 1988 Unknown [id number] 2.16.840.1.544544.3.579.2. 1286 1988 Unknown [id number] 2.16.840.1.373895.3.579.2. 9 1988 Unknown [id number] 2.16.840.1.818715.3.579.2. 9 1988 Unknown [id number] 2.16.840.1.668694.3.579.2. 1258 1988 Unknown [id number] 2.16.840.1.282442.3.579.2. 1258 1988 Unknown [id number] 2.16.840.1.017644.3.579.2. 1258 1988 Unknown [id number] 2.16.840.1.689866.3.579.2. 1258 1988 Unknown [id number] 2.16.840.1.523271.3.579.2. 1258 1988 Unknown [id number] 2.16.840.1.002595.3.579.2. 1258 1988 Unknown [id number] 2.16.840.1.782476.3.579.2. 1258 1988 Unknown [id number] 2.16.840.1.659380.3.579.2. 1258 1988 Unknown [id number] 2.16.840.1.065891.3.579.2. 1258 1988 Unknown [id number] 2.16.840.1.850721.3.579.2. 1258 1988 Unknown [id number] 2.16.840.1.545867.3.579.2. 9 1959 Private Health Insurance [id number] 1959 Unknown [id number] 1959 Unknown [id number] Private Health Insurance [facility] [id number] Unknown [id number] Unknown [id number] 2.16.840.1.649016.3.579.2. 531 Unknown [id number] 2.16.840.1.815605.3.579.2. 531 Unknown [id number] 2.16.840.1.082504.3.579.2. 531 Unknown [id number] 2.16.840.1.820492.3.579.2. 531 Social History Date Type Detail Facility Unknown if ever smoked [facility] [employer] Other Start: 10-15-2023 End: 05-15-2024 Sex Assigned At [facility] Other Start: 03-08-2023 End: 05-15-2024 Tobacco smoking status NHIS Never smoked tobacco (finding) [facility] Start: 1990 Sex Assigned At Female F [facility] Start: 07-13-2022 End: 05-15-2024 Tobacco use and exposure Smokeless tobacco non-user [facility] Start: 10-15-2023 End: 05-15-2024 Alcoholic beverage intake Current drinker of alcohol (finding) [facility] Start: 10-15-2023 End: 05-15-2024 Alcoholic beverage intake [facility] Start: 06-28-2022 Education 21 [facility] Start: 1988 Sex assigned at Not on file [facility] Start: 12-24-2023 End: 05-01-2024 Sex Female (finding) [facility] Start: 05-15-2024 Alcohol Comment rare [facility] Work Phone: Start: 05-05-2024 End: 05-15-2024 Exposure to SARS-CoV-2 (event) Not sure [facility] Clinical Notes 09-13-2020 to 05-15-2024 Fran Oseguera MD - 05/15/2024 1:00 PM EDTPatient InstructionsTelephone Encounter - Naya Butler NP - 04/01/2024 9:23 AM ESTTelephone Encounter - Naya Butler, [employer] - 04/01/2024 9:23 AM EST Note Date [...] Hydration was encouraged. Exercise dietary walking program. Stand Offer portal use was encouraged. We will plan to see back following the above testing with Laboratory Studies and ECG as noted. Patient will follow up with their primary physician for general care. The patient knows to contact medical care earlier if need be. HPI: Rebecca [place] was seen in cardiac evaluation at the [facility] Cardiology office May 15, 2024. The [...] SOCIAL HISTORY: . 1 child. Works at [employer]. Stands much of the day. Never smoked. [...] None this visit. Fran Oseguera MD, FACC [facility] / Cardiology Of Note: [employer] voice recognition dictation software was utilized partially [...] the [facility]. [facility] O[facility]guera MD, [facility] I, Dr. Fran Oseguera MD, FACC, personally performed the services described in the documentation as scribed by Lana Miramontes RN in my presence, and confirm it is both accurate and complete. documented in this encounter [facility] Work Phone: 05-15-2024 Instructions Lana Lucero [...] getting compression socks documented in this encounter [facility] Work Phone: 04-01-2024 Telephone encounter Note Received a message from vestibular therapy stating the patient does not seem very interested/committed to therapy. Previously, she received 1 session of therapy and stopped coming stating work schedule challenge. She was rescheduled this am and sent a text 20 min before visit claiming she had stomach ache. [facility] 04-01-2024 Miscellaneous Notes Received a message from vestibular therapy stating the patient does not seem very interested/committed to therapy. Previously, she received 1 session of therapy and stopped coming stating work schedule challenge. She was rescheduled this am and sent a text 20 min before visit claiming she had stomach ache. documented in this encounter [facility] 04-01-2024 History of Presen t illness Narrative Images from the original note were not included. Rebecca [place] [id number] 03/29/24 Subjective: Phone consult 04[birth year]26 34 yof [...] not very structured, has not talked to loan workout officer in years Neck periodically painful, Has not [...] head at arms length with Blue & [place] Markers Smooth Pursuit: Pass, Performed Monocularly Negative [...] Director Vestibular Rehabilitation documented in this encounter [facility] 03-13-2024 Telephone encounter Note I reviewed. Thank you! [facility] 03-13-2024 Miscellaneous Notes I reviewed. Thank you! Routed to you and in Media. Referral placed. The patient calls in stating that she was told to continue her PT and her PT has . Needs a new order sent to [facility] PT. Requested. Can you please request record of the patient's most recent ophthalmology note for review? documented in this encounter [facility] 03-13-2024 Telephone encounter Note Routed to you and in Media. [facility] 03-13-2024 Telephone encounter Note Referral placed. [facility] 03-12-2024 Telephone encounter Note The patient calls in stating that she was told to continue her PT and her PT has . Needs a new order sent to [facility] PT. [facility] 03-12-2024 Telephone encounter Note Requested. [facility] 03-11-2024 Telephone encounter Note Can you please request record of the patient's most recent ophthalmology note for review? [facility] 03-06-2024 History of Presen t illness Narrative [...] nursing note reviewed. Exam conducted with a house supervisor present. Vitals: Estimated body mass index is [...] of a continuous control. Slynd sent to [facility] and patient given handout in regards to pharmacy information. Orders Placed This Encounter Procedures HPV DNA probe, amplified Follow Up: Patient is to return in one year for annual unless needed otherwise. Documented by Padmaja Astorga LPN on behalf of: Ricci Mullins DO documented in this encounter [facility] 02-14-2024 Evaluation note Diagnosis Onset Date Resolution [...] Intracranial hypertension acute May 01, 2024 2:47pm [facility] Work Phone: 1(862) 785-760112-31-2024 History of Present illness Narrative* Yun Naranjo, PT - 02/05/2024 8:30 AM EST Images from the original note were not included. Rebecca [place] [id number] 02/05/24 Subjective: Phone consult 01/21 33 yof [...] head at arms length with [place] Markers Smooth Pursuit: Pass, Performed Monocularly Negative [...] AIB-VAM Director Vestibular Rehabilitation [id number] History of Present illness Narrative* Yun Naranjo, PT - 01/23/2024 7:30 AM EST Images from the original note were not included. Rebecca [place] [id number] 01/22/24 Subjective: Phone consult 01/21 33 yof [...] head at arms length with [place] Markers Smooth Pursuit: Pass, Performed Monocularly Negative [...] AIB-VAM Director Vestibular Rehabilitation documented in this [facility]12-17-2024 Instructions* Patient Instructions* Naya Butler NP - 01/22/2024 1:00 PM EST - Referral to vestibular therapy ([facility]) - Check labs documented in this [facility]12-12-2024 Evaluation note* Diagnosis Onset Date Resolution [...] 2024 9:23am Panic attacks acute February 9:23am [facility] Work Phone: 1(357) 247-434511-18-2024 Evaluation note* Diagnosis Onset Date Resolution Status Admit Date Intracranial hypertension acute December 24, 2023 3:19pm PCOS (polycystic ovarian syndrome) acute December 23, 2 024 3:19pm Hand, foot and mouth disease inactiv e December 24, 2023 3:19pm Anxiety acute January 17, 2024 3:29pm Intracranial hypertension acute January 17, 2024 3:29pm Sinusitis, acute maxillary acute January 17, 2024 3:29pm [facility] Work Phone: 1(215) 841-338611-18-2024 Evaluation note* Diagnosis Onset Date Resolution Status [...] acute maxillary acute February 14, 2024 11:20am [facility] Work Phone: 1(598) 386-767711-18-2024 Evaluation note* Diagnosis Onset Date Resolution Status [...] 2024 9:58am Panic attacks acute February 9:23am [facility] Work Phone: 1(731) 818-488310-15-2024 History of Present illness Narrative* Bonnie Johnson, [...] wrist extensors , wrist flexor , and bullion weigher strength 5/5. LUE strength deltoid , biceps , triceps , wrist extensors , wrist flexor , and bullion weigher strength 5/5. RLE strength iliopsoas, quadriceps, tibialis [...] reflex 1+. LLE Knee reflex 1+. Coordination: [id number] testing normal. Rapid alternating movements are normal. Gait: Normal. Review and summary of old records: MR venogram on 11/09/2023 at [facility]: No evidence of venous thrombosis. No acute intracranial pathology. Redemonstration of findings consistent with IH as seen on previous MRI. Laboratory evaluation on 10/23/2023: CMP is unremarkable. Specifically potassium is 3.8. Lumbar puncture (LP) [place] [facility] [place] 09/25/23: Opening pressure of 32 cm CSF. The patient denies any adverse effects to the LP. CSF on 09/25/23: CSF glucose 60, protein 23. Anaerobic culture no anaerobes isolated after 3 days. Aerobic culture no growth 2 days. Gram stain negative. PCR panel negative. I reviewed the patient's appointment note from [facility] on 09/03/23. Levi, ROYCE identified very mild sixth cranial nerve palsy with no visual field loss or disc edema. VNG at [facility] on 08/29/23: There is evidence of significant peripheral vestibular dysfunction. Positive Carla-Hallpike maneuver. This is suggestive of benign paroxysmal positional vertigo. There is also evidence of significant central vestibular dysfunction. MRI of the brain w and w/o contrast at [facility] on 08/15/23: There is flattening of the [...] an established patient at [facility] and plans to follow with them [...] order to preservethis patient's visit in the terminal operator. Dizziness The patient reports episodic, provoked dizziness. [...] recommended to have a vestibular evaluation in [place], [place]. PLAN: - I reviewed VNG results [...] new or worsening symptoms. documented in this [facility]09-12-2024 Telephone encounter Note* Telephone Encounter - Naya Butler NP - 10/18/2023 10:42 AM EDT Acknowledged. Thank you! [place] [id number] Miscellaneous Notes* Telephone Encounter - Naya Butler NP - 10/18/2023 10:42 AM EDT Acknowledged. Thank you! * Telephone Encounter - Shima Vallecillo MA - 10/18/2023 10:21 AM EDT Called PT to ask about the [place] request for Medical information from [facility], PT told me to disregard paperowrk as she is getting it filled out by her PCP. documented in this [facility]09-12-2024 Telephone encounter Note* Telephone Encounter - Shima Vallecillo MA - 10/18/2023 10:21 AM EDT Called PT to ask about the [place] request for Medical information from [facility], PT told me to disregard paperowrk as she is getting it filled out by her PCP. [place] [id number] Telephone encounter Note* Telephone Encounter - Naya Butler NP - 10/16/2023 6:05 PM EDT I will review this. Thank you! [id number] Miscellaneous Notes* Telephone Encounter - Naya Butler NP - 10/16/2023 6:05 PM EDT I will review this. Thank you! * Telephone Encounter - Naya Butler NP - 10/16/2023 9:55 AM EDT The patient states she had an eye exam at [facility] recently for IIH. Can you please request record of this for me to review? documented in this encounter[facility] [id number] Telephone encounter Note* Telephone Encounter - Naya Butler NP - 10/16/2023 9:55 AM EDT The patient states she had an eye exam at [facility] recently for IIH. Can you please request record of this for me to review? [facility] [id number] History of Present illness Narrative* Naya Butler [...] the labs completed because she states [facility] did not receive an order for them. She is taking acetazolamide 250 mg by mouth twice a day. Since starting acetazolamide, the patient reports multiple side effects including fatigue, nausea, a yjux-wsj-pllpzvj sensation in the feet when attempting to [...] resolves. It is primarily triggered by quick wnkv-jh-zxjn head movements. However, it canalso be provoked [...] to lights or sounds. She has tried bucl-mqo-usbwavy medications for her headaches, and these provide [...] wrist extensors , wrist flexor , and bullion weigher strength 5/5. LUE strength deltoid , biceps , triceps , wrist extensors , wrist flexor , and bullion weigher strength 5/5. RLE strength iliopsoas, quadriceps, tibialis [...] reflex 1+. LLE Knee reflex 1+. Coordination: Lmwlvb-hh-gwcd testing normal. Rapid alternating movements are normal. Gait: Normal. Review and summary of old records: Lumbar puncture (LP) at [facility] on 09/25/23: Opening pressure of 32 cm CSF. The patient denies any adverse effects to the LP. CSF on 09/25/23: CSF glucose 60, protein 23. Anaerobic culture no anaerobes isolated after 3 days. Aerobic culture no growth 2 days. Gram stain negative. PCR panel negative. I reviewed the patient's appointment note from [facility] on 09/03/23. Levi, OD identified very mild sixth cranial nerve palsy with no visual field loss or disc edema. VNG at [facility] on 08/29/23: There is evidence of significant peripheral vestibular dysfunction. Positive Carla-Hallpike maneuver. This is suggestive of benign paroxysmal positional vertigo. There is also evidence of significant central vestibular dysfunction. MRI of the brain w and w/o contrast at [facility] on 08/15/23: There is flattening of the [...] an established patient at [facility] and plans to follow with them [...] recommended to have a vestibular evaluation in [place], [place]. PLAN: - I reviewed VNG results [...] NP [facility] documented in this [facility]09-09-2024 Instructions* Patient Instructions* Naya Butler NP - 10/15/2023 3:40 PM EDT - Stop acetazolamide - Start furosemide 20 mg by mouth once a day - Check labs documented in this [facility]08-20-2024 Evaluation note* Diagnosis Onset Date Resolution Status Admit Date Intracranial hypertension acute September 25, 2023 7:41am Headache acute September 26, 2 024 1:27pm Intracranial hypertension acute September 27, 2023 1:27pm Headache acute October 1:39pm Intracranial hypertension acute October 22, 2023 1:39pm [facility] Work Phone: [phone] Hospital Discharge instructionsAmbulatory Orders* Referral to Neurology Time Frame: 06/28/23, Location: None Selected [facility] Work Phone: [phone] 145-186301-23-2023 Evaluation note* Encounter Date Diagnosis Assessment Notes Treatment Notes Treatment Clinical Notes Feb, Pain in right wrist (ICD-10 - M25.531) Feb, Pain in left wrist (ICD-10 - M25.532) [employer] Other 07-17-2022 NoteOPERATIVE NOTE OPERATION DATE: 08/22/2021 PROCEDURE: Primary low transverse section. PREOPERATIVE DIAGNOSIS: 1. Intrauterine at 40 and 5/7 days. 2. Failure to induce, Cervidil x2. POSTOPERATIVE DIAGNOSIS: 1. Intrauterine at 40 and 5/7 days. 2. Failure to induce, Cervidil x2. ANESTHESIA: Spinal with Duramorph. SURGEON: Ricci Mullins D.O. LABORER STORES: REG [place] URINE OUTPUT: Yellow and clear. [...] to the Recovery Room in stable condition. [facility] Signed and Approved by: DR RICCI MULLINS . 08/26/2021 08:15:00[facility]07-17-2022 NoteDISCHARGE SUMMARY DISCHARGE DATE: 09/09/2021 PRIMARY DIAGNOSES: [...] pain free and no longer on narcotics.[facility] [id number] NoteHNO ID: [id number] Author: Maurice Bonilla APRN.ADJUSTO WRITER OPERATOR Service: ? Author Type: Nurse Practitioner Type: [...] Total Time Spent: 5 minutes Maurice Bonilla APRN.ADJUSTO WRITER OPERATOR September 13, 2020 11:59 [facility] noteNo Information [facility] [employer] Other Evaluation note* Diagnosis Onset Date Resolution Status Acute middle ear effusion ac [place] Vertigo acute Vertigo acute [facility] Work Phone: Evaluation note* Diagnosis Onset Date Resolution Status Acute middle ear effusion ac [place] Vertigo acute Vertigo acute Acute middle ear effusion ac [place] Vertigo acute [facility] Work Phone: Evaluation note* Diagnosis Onset Date Resolution Status Acute middle ear effusion ac [place] Vertigo acute Vertigo acute Acute middle ear effusion ac [place] Vertigo acute Vertigo acute Dizziness of unknown etiology acute [facility] Work Phone: Evaluation note* Diagnosis Onset Date Resolution Status Vertigo acute Dizziness of unknown etiology acute [facility] Work Phone: Evaluation note* Diagnosis Onset Date Resolution Status Vertigo acute Dizziness of unknown etiology acute Bronchitis acute [facility] Work Phone: Evaluation note* Diagnosis Onset Date Resolution Status Dizziness of unknown etiology acute Bronchitis acute Headache acute Intracranial hypertension ac [facility] Work Phone: Evaluation note* Diagnosis Onset Date Resolution Status Dizziness of unknown etiology acute Bronchitis acute Headache acute Intracranial hypertension ac [place] Anxiety acute Headache acute Intracranial hypertension ac [facility] Work Phone: Evaluation note* Diagnosis Onset Date Resolution Status Bronchitis acute Headache acute Intracranial hypertension ac [place] Anxiety acute Headache acute Intracranial hypertension ac [place] Intracranial hypertension ac [facility] Work Phone: Evaluation note* Diagnosis Onset Date Resolution Status Bronchitis acute Headache acute Intracranial hypertension ac [place] Anxiety acute Headache acute Intracranial hypertension ac [place] Intracranial hypertension ac [place] Headache acute Intracranial hypertension ac [facility] Work Phone: Evaluation note* Diagnosis Onset Date Resolution Status Headache acute Intracranial hypertension ac [place] Anxiety acute Headache acute Intracranial hypertension ac [place] Intracranial hypertension ac [place] Headache acute Intracranial hypertension ac [place] Headache acute Intracranial hypertension ac [facility] Work Phone: Evaluation note* Diagnosis Intracranial hypertension- Primary Benign intracranial hypertension Dizziness Dizziness and giddiness Class 3 severe obesity due to excess calories with serious comorbidity and body mass index (BMI) of 45.0 to 49.9 in adult ([facility]) documented in this encounter [facility]* Diagnosis Dizziness- Primary Dizziness and giddiness Intracranial hypertension Benign intracranial hypertension Class 3 severe obesity due to excess calories with serious comorbidity and body mass index (BMI) of 45.0 to 49.9 in adult ([facility]) Encounter for medication monitoring Encounter for therapeutic [...] (BMI) of 45.0 to 49.9 in adult ([facility]) Encounter for medication monitoring Encounter for therapeutic [...] Tachycardia Unspecified tachycardia documented in this encounter [facility] Work Phone: History general Narrative - Reported* Type Description Date Medical History BMI 40.0-44.9, adult Medical History PCOS (polycystic ovarian syndrom e) Medical History Amenorrhea, secondary Medical History Bronchitis Medical History Depression Surgical History ADRENALECTOMY, TOTAL, LEFT / 014 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 [employer] Other [facility] Narrative - Reported* Type Description Date Medical History BMI 40.0-44.9, adult Medical History PCOS (polycystic ovarian syndrom e) Medical History Amenorrhea, secondary Medical History Bronchitis Medical History Depression Surgical History ADRENALECTOMY, TOTAL, LEFT 05/07 014 Surgical History Carpal tunnel bilateral 06/2022 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 [employer] Other Hospital Discharge instructionsAmbulatory Orders* Referral to Psychiatry Time Frame: 03/06/24, Location: [facility] Work Phone: Reason for visit Narrative* Rehabilitation - Outpatient (Routine) - Pending Review Specialty Diagnoses / Procedures Referred By Harry bernard Referred To Contact Physical Therapy Diagnoses Dizziness Procedures [place] OFFICE/OUTPATIENT [facility] Naya Inman NP [address] [place] [phone] Phone: tel: Yun Naranjo, PT [address] [place] [address] Phone: tel: fax: Referral ID Status Reason Start Date Expiration Date Visits Requested Visits Authorized [id number] Pending Review Consult and Treat 4 07/20/2024 1 1 [facility] Narrative* Rehabilitation - Outpatient (Routine) - Authorized Specialty Diagnoses / Procedures Referred By Harry bernard Referred To Contact Physical Therapy Diagnoses Dizziness Procedures [place] OFFICE/OUTPATIENT [facility] Naya Inman NP [address] [place] [phone] Phone: tel: Yun Naranjo, PT [address] [place] [address] Phone: tel: fax: Referral ID Status Reason Start Date Expiration Date Visits Requested Visits Authorized [id number] Authorized Consult and Treat 01/22/2024 02/05/2024 40 40 [facility] HealthcareReason for visit Narrative* Rehabilitation - Outpatient (Routine) - Pending Review Specialty Diagnoses / Procedures Referred By Harry t Referred To Contact Physical Therapy Diagnoses Dizziness Procedures [place] OFFICE/OUTPATIENT [facility] 60 MINUTES Naya Butler, LESLIE [address] [place] [phone] Phone: tel: Yun Naranjo, PT [address] [place] [address] Phone: tel: Referral ID Status Reason Start Date Expiration Date Visits Requested Visits Authorized [id number] Pending Review Consult and Treat 03/13/2024 09/09/2024 [...] Pain in right wrist (M25.531) Referral Organization [facility] naveen Referring Provider First Name Alyssa Referring Provider Last Name Brady Referring Provider Specialty Family [facility] Referred Organization [facility] Referred Provider Alaina,James Referred Address ,[place], [place],[address] Referred Provider Specialty Orthopedic S urgery Referral [...] contrast Naya Butler NP [address] [place] [address] [facility] Scheduling [address] [place] [address] Referral ID Status Reason Start Date Expiration Date V isits Requested Visits Authorized [id number] Pending Review 10/16/2023 04/13/2024 1 1 Chief [...] and content) DATE CREATED AUTHOR 07/26/2017 [facility] DATE CREATED AUTHOR AUTHOR'S ORGANIZ ATION 02/24/2021 [facility] DATE CREATED AUTHOR AUTHOR'S ORGANIZ ATION 03/04/2022 [facility] DATE CREATED AUTHOR AUTHOR'S ORGANIZ ATION 08/21/2023 [facility] DATE CREATED AUTHOR AUTHOR'S ORGANIZ ATION 11/18/2023 [facility] DATE CREATED AUTHOR AUTHOR'S ORGANIZ ATION 04/30/2024 [facility] dical Specialists EPIC REASON FOR VISIT (unrecogniz [...] 12 Lead Fran Oseguera MD [address] [facility] [address] [place] [address] Phone: tel: fax: Referral ID Status Reason Start Date Expiration Date V isits Requested Visits Authorized [id number] Authorized 05/15/2024 05/15/2025 1 1 Care Teams [...] 2023 End: September 25, 2023 Naya Butler APRN-IRON ASSORTER-C Attending Provider Active Start: September 25, 2023 [...] 2023 End: November 09, 2023 Naya Butler APRN-IRON ASSORTER-C Attending Provider Active Start: November 09, 2023 End: November 09, 2023 Call Center Operations Manager Relationship Specialty Start Date End Date Alyssa Butterfield MD [address] [place] [facility] [place] [phone] PCP - General Family Medicine 06/27/22 Call Center Operations Manager Relationship Specialty Start Date End Date Alyssa Butterfield MD [address] [place] [facility] [phone] PCP - General Family Medicine 06/27/22 Call Center Operations Manager Relationship Specialty Start Date End Date Alyssa Butterfield MD [address] [place] [facility] [address] PCP - General Family Medicine 06/27/22 Call Center Operations Manager Relationship Specialty Start Date End Date Alyssa Butterfield MD [address] [place] [facility] [address] PCP - General Family Medicine 06/27/22 Call Center Operations Manager Relationship Specialty Start Date End Date Alyssa Butterfield MD [address] [place] [facility] [phone] PCP - General Family Medicine 06/27/22 Call Center Operations Manager Relationship Specialty Start Date End Date Alyssa Butterfield MD [address] [facility] [place] [address] PCP - General Family Medicine 06/27/22 Call Center Operations Manager Relationship Specialty Start Date End Date Alyssa Butterfield MD [address] [facility] [place] [address] PCP - General Family Medicine 06/27/22 Call Center Operations Manager Relationship Specialty Start Date End Date Alyssa Butterfield MD [address] [place] [facility] [place] [phone] PCP - General Family Medicine 06/27/22 Call Center Operations Manager Relationship Specialty Start Date End Date Alyssa Butterfield MD [address] [place] [facility] [place] [address] PCP - General Family Medicine 06/27/22 Call Center Operations Manager Relationship Specialty Start Date End Date Alyssa Butterfield MD [address] [place] [facility] [place] [address] PCP - General Family Medicine 06/27/22 Call Center Operations Manager Relationship Specialty Start Date End Date Alyssa Butterfield MD [address] [place] [facility] [place] [address] PCP - General Family Medicine 06/27/22 Bonnie Johnson DO [address] [place] [address], [place] [phone] Referring Physician Neurology 03/11/24 Call Center Operations Manager Relationship Specialty Start Date End Date Alyssa Butterfield MD [address] [place] [facility] [phone] PCP - General Family Medicine 06/27/22 Bonnie Johnson DO [address] [address] Referring Physician Neurology 03/11/24 Call Center Operations Manager Relationship Specialty Start Date End Date Alyssa Butterfield MD [address] [place] [address] PCP - General Family Medicine 06/27/22 Bonnie Johnson DO [address] [address] Referring Physician Neurology 03/11/24 Call Center Operations Manager Relationship Specialty Start Date End Date Alyssa Butterfield MD [address] [place] [address] PCP - General Family Medicine 06/27/22 Bonnie Johnson DO [address] [address] Referring Physician Neurology 03/11/24 Call Center Operations Manager Relationship Specialty Start Date End Date Alyssa Butterfield MD [address] [place] [address] PCP - General Family Medicine 06/27/22 Bonnie Johnson DO [address] [address] Referring Physician Neurology 03/11/24 Team Status: Inactive Member Role Status Dates Alyssa Butterfield MD Primary Care Provide r, Attending Provider Active Start: May 01, 2024 End: May 01, 2024 Call Center Operations Manager Relationship Specialty Start Date End Date Alyssa Butterfield MD [address] [place] [address] PCP - General Family Medicine 05/15/24 Goals [...] BE BASED ON THE PRIMARY CLINICAL RECORDS. [employer] provides no warranty or guarantee of the accuracy or completeness of information in this document.
[2024-05-17 10:50] LABS: Free T4 0.98 ng/dL (0.76-1.46)
[2024-05-19 16:11] LABS: Thyroglobulin Antibody 1.4 IU/mL (0.0-0.9); Thyroid Peroxidase (TPO) Ab 19 IU/mL (0-34)
== END 2024-05-17 08:29 | disposition home or self-care (01) ==
PROVIDERS: PCP Family Medicine; Visit Provider Family Medicine
DX: R42 Dizziness and giddiness (principal); G93.2 Benign intracranial hypertension; R53.83 Other fatigue
CPT/HCPCS: 36415; 84439; 84443; 86376; 86800

== ENCOUNTER 2024-11-10 08:57 | Outpatient (OUT) | payer OTHER, SELFPAY ==
--- OUTSIDE RECORDS SUMMARY | 2023-06-29 04:45 | XMS_ITS ---
Author Organization [facility] Address [address] [place] [address] Care Team Providers Care Assistant Construction Superintendent Name Role Phone Elsie Arias Primary Care Provider REASON FOR VISIT 6 week f/u Encounters Encounter Location Date Provider Diagnosis [facility] [address] [place] [address] 06/29/2023 Elsie Arias Plan Of Treatment No Information Progress Notes * REBECCA BARRERA NDOB: [birth year] (34 yo F)Acc No.[id number]:06/29/2023 Behavioral [facility] Patient: REBECCA COTA Vicki Appointment Provider: Anel Arias :1990 A ge:33 Y S ex:Female Date:06/29/2023 Address:[address] [place], [place] [id number] Subjective: * Chief Complaints: * 1 . 6 week f/u. * Medical History: Objective: * Vitals: Assessment: Plan: * Treatment: * Images: * Electronic signature of CAMERON Chew on 11/10/2024 at 09:03 AM EDT Sign off status: Pending * Appointment Provider: Anel Arias Date: 0 06/29/2023 Generated for Lance love/Balbir/eTransmitting on: 1 09:03 AM EDT
--- OUTSIDE RECORDS SUMMARY | 2024-11-10 09:03 | XMS_ITS | Clinical Summary ---
Author Organization [place] Address [id number] [address] [place] [address] Care Team Providers Care Production Mechanic Tin Cans Name Role Phone Edie Abreu MD Primary Care Provider [phone] Allergies No known active allergies Medications metFORMIN XR (GLUCOPHAGE-XR) 500 mg 24 hr tablet 1 tablet (500 mg total) 2 (two) times daily at 0800 and 1500. 8 Active venlafaxine XR (EFFEXOR-XR) 37.5 mg 24 hr capsule 8 Active fluticasone (FLONASE) 50 mcg/actuation nasal spray Administer 1 spray into each nostril as needed. Active norethindrone-e .estradioL-iron (ESTROSTEP FE) 1-20(5)/1-30(7) /1mg-35mcg (9) tablet Take 1 tablet by mouth in the morning. Active Active Problems Problem Noted Date Diagnosed Date Chronic tonsillitis 09/20/2017 Eustachian tube dysfunction 09/20/2017 Family History Medical History Relation Name Comments No Known Problems Father Hyperlipidemia Mother Relation Name Status Comments Father Alive Mother Alive Social History Tobacco Use Types Packs/Day Years Used Date Smoking Tobacco: Never Smokeless Tobacco: Never Tobacco Cessation:Counseling Given: Not Answered Alcohol Use Standard Drinks/Week Comments Yes 0 (1 standard drink = 0.6 oz pur e alcohol) occassional Childcare Answer Date Recorded Childcare Unknown 07/15/2018 Employment Answer Date Recorded Employment Unknown 07/15/2018 Purpose - Life Answer Date Recorded Purpose and direction in life Unknown Comments No Sex and Gender Information Value Date Recorded Sex Assigned at Not on file Legal Sex Female 3:22 PM EDT Gender Identity Not on file Sexual Orientation Not on file Last Filed Vital Signs Vital Sign Reading Time Taken Comments Blood Pressure 133/82 08/13/2023 5:52 PM EDT Pulse 96 08/13/2023 5:52 PM EDT Temperature 36.9 C (98.5 F) 08/13/2023 5:52 PM EDT Respiratory Rate 18 08/13/2023 5:52 PM EDT Oxygen Saturation 98% 08/13/2023 5:52 PM EDT Inhaled Oxygen Concentration - - Weight 115.7 kg (255 lb) 07/04/2022 12:09 PM EDT Height 166.4 cm (5' 5.5 ) 07/04/2022 12:09 PM ED T Body Mass Index 41.79 07/04/2022 12:09 PM EDT Plan of Treatment Health Maintenance Due Date Last Done Comments Depression Screening 2000 Adult BMI Screening 07/05/2023 07/04/2022 Tobacco Screening 08/12/2024 08/13/2023 COVID-19 Vaccine (2024-2 6 season) 2024 11/18/2022, 11/30/2020, 03/18/2020, Additional history exists Influenza Vaccine 10/06/2024 11/18/2022, , 10/29/2018, Additional history exists Pap Smear 02/27/2025 02/27/2022 DTaP,Tdap and Td Vaccines (4 - Td or Tdap) 07/04/2031 07/03/2021, 12/29/2017, 10/27/2013 Medical Devices Not on file Insurance [employer] Care Teams Production Mechanic Tin Cans Relationship Specialty Start Date End Date Edie Abreu MD [address] [place] [id number] PCP - General Family Medicine 06/30/22
--- OUTSIDE RECORDS SUMMARY | 2024-11-10 09:03 | XMS_ITS | Encounter Summary ---
Author Organization [facility] Address [address] [place] [address] Care Team Providers Care Weigh Tank Operator Name Role Phone Yuriy Le Unavailable Edie Abreu MD Primary Care Provider [phone] Source Comments In the event this information is protected by the Federal Confidentiality of Alcohol and Drug AbusePatient Records regulations: The Federal rules restrict any use of the information to criminally investigate or prosecute any alcohol or drug abuse patient.[facility] Encounter Details Date Type Department Care Team (Latest Contact Info) Description 12/13/2020 Get Medical Advice Reproductive Endocrinology Infertility [address] [place] [address] Emmanuel Munoz MD [address] [place] [address] Non-Urgent Medical Question Social History Tobacco Use Types Packs/Day Years Used Date Smoking Tobacco: Never Smokeless Tobacco: Never Alcohol Use Standard Drinks/Week Comments Yes 0 (1 standard drink = 0.6 oz pur e alcohol) socially Area Deprivation Index Answer Date Mamadou rded National Score (1-100), lower number is lower ri sk Not on file 01/15/2020 State Score (1-10), lower number is lower risk N ot on file 01/15/2020 Data from: https://www.neighborhoodatlas.medicine.[facility].edu/. Last address used for calculation Not on file 01/15/2020 Comments No Sex and Gender Information Value Date Recorded Sex Assigned at Female 05/04/2020 12:05 AM EDT Legal Sex Female 8:39 AM EST Gender Identity Female 05/04/2020 12:05 AM EDT Sexual Orientation Straight 05/04/2020 12 :05 AM EDT documented as of this encounter Plan of Treatment Not on file documented as of this encounter Visit Diagnoses Not on filedocumented in this encounter Care Teams Weigh Tank Operator Relationship Specialty Start Date End Date Edie Abreu MD [address] [place] [phone] PCP - General Family Medicine 11/21/19 Yuriy Le [address] [place] [address] Referring Etl Database Developer 02/20/19 documented as of this encounter
--- OUTSIDE RECORDS SUMMARY | 2024-11-10 09:03 | XMS_ITS | Patient Health Record ---
Author Organization [facility] Address [address] [place] [address] Care Team Providers Care Gas Pumping Station Operator Name Role Phone Elsie Arias Primary Care Provider Allergies No Known Allergies Reason For Referral No Information Medications Medication SIG (Take, Route, Frequency, Duration) Notes Start Date End Date Status metFORMIN HCl ER 500 MG 1 tablet with ev ening meal Orally twice a day Active Venlafaxine HCl ER 75 MG TAKE 1 CAPSULE BY MOUTH DAILY WITH FOOD; Duration: 90 Active Social History Tobacco Use: Social History Observation Description Date Details (start date - stop date) Never Smoker NA - NA Depression Screening (PHQ-9): Question Answer Notes Little interest or pleasure in doing things Lacey ral days Feeling down, depressed, or hopeless Several day s Trouble falling or staying a sleep, or sleeping too much Nearly every day Feeling tired or having little energy Nearly leta ry day Poor appetite or overeating Nearly every day Feeling bad about yourself-o r that you are a failure or have let yourself or your family down Not at all Trouble concentrating on thi ngs, such as reading the newspaper or watching television Several days Moving or speaking so slowly that other people could have noticed. Or the opposite being so fidgety or restless that you have been moving around a lot more than usual Nearly every day Thoughts that you would be b darby off , or of hurting yourself in some way Not at all Total Score 15 Intepretation Moderately severe depression Tobacco Control (Standard) Question Answer Notes Tobacco use: Nonsmoker Problems Problem Type SNOMED Code ICD Code Onset Dates Problem Status W/U Status Risk Notes Problem Mood disorder (28018050) Mood disorder (F39) Active confirmed Problem Body mass index 40+ - morbidly obese (765013367) BMI 40.0-44.9, adult (Z68.41) Active confirmed Problem Inattention (78026105) Inattention (R41.840) Active confirmed Plan Of Treatment No Information Insurance Providers Payer Name Payer Address Payer Phone Subscriber Number Group Number Insured Name Patient Relationship to Insured Coverage Start Date Coverage End Date [employer] [address] [address] [place] [address] [phone] [id number] REBECCA BARRERA Self - patient is the insured 4 Medical (General) History Medical History History ICD Code depression pcos Surgical History Surgery Date(Month/Year) carpal tunnel release both wrists 2022 2021 adrenalectomy 2003 Hospitalization History Reason Date(Month/Year) adrenalectomy 2003 2021
--- OUTSIDE RECORDS SUMMARY | 2024-11-10 09:03 | XMS_ITS | Encounter Summary ---
Author Organization [facility] Address [address] [place] [address] Care Team Providers Care Fire Fighter [employer] Name Role Phone Edie Abreu MD Primary Care Provider [phone] Amos Johnson DO Unavailable [phone] Encounter Details Date Type Department Care Team (Late Contact Info) Description 06/21/2022 Abstract [facility] [address] [place] [phone] Allyson Rosales RN Social History Tobacco Use Types Packs/Day Years Used Date Smoking Tobacco: Never Alcohol Use Standard Drinks/Week Comments Yes 0 (1 standard drink = 0.6 oz pur e alcohol) Comments Unknown Sex and Gender Information Value Date Recorded Sex Assigned at Not on file Legal Sex Female 7:47 PM EDT Gender Identity Not on file Sexual Orientation Not on file documented as of this encounter Plan of Treatment Upcoming Encounters Date Type Department Care Team ([facility] Contact Info) Description 11/13/2024 9:30 AM EDT Office Visit [facility] [address] [place] [address] Seamus Grier MD [address] [place] [address] 03/11/2025 4:00 PM EST Office Visit [facility] [address] [place] [address] Ricci Mullins DO [address] [place] [address] documented as of this encounter Visit Diagnoses Not on filedocumented in this encounter Care Teams Fire Fighter [employer] Relationship Specialty Start Date End Date Edie Abreu MD PCP - General Family Medicine 06/27/22 Amos Johnson DO [address] [place] [address] Referring Physician Neurology 03/11/24 documented as of this encounter
--- OUTSIDE RECORDS SUMMARY | 2024-11-10 09:03 | XMS_ITS | Encounter Summary ---
Author Organization [facility] Address [address] [place] [address] Care Team Providers Care Corporate Director Name Role Phone Yuriy Le Unavailable Edie Abreu MD Primary Care Provider [phone] Source Comments In the event this information is protected by the Federal Confidentiality of Alcohol and Drug AbusePatient Records regulations: The Federal rules restrict any use of the information to criminally investigate or prosecute any alcohol or drug abuse patient.[facility] Encounter Details Date Type Department Care Team (Latest Contact Info) Description 10/14/2020 Get Medical Advice Reproductive Endocrinology Infertility [address] [place] [address] Emmanuel Munoz MD [address] [place] [address] RE: Non-Urgent Medical Question Social History Tobacco Use [...] N ot on file 01/15/2020 Data from: https://www.neighborhoodatlas.medicine.[facility].edu/. Last address used for calculation Not on [...] on filedocumented in this encounter Care Teams Corporate Director Relationship Specialty Start Date End Date Edie Abreu MD [address] [place] [address] PCP - General Family Medicine 11/21/19 Yuriy Le [address] [place] [place] [address] Referring Javascript Application Developer 02/20/19 documented as of this encounter
--- OUTSIDE RECORDS SUMMARY | 2024-11-10 09:03 | XMS_ITS | Clinical Summary ---
Author Organization [facility] Address [address] [place] [address] Care Team Providers Care Blacksmith Supervisor Name Role Phone Edie Abreu MD Primary Care Provider Amos Johnson DO Unavailable [phone] Allergies Active Allergy Reactions Criticality Noted Date Comments Cat Dander Unknown 06/20/2024 Other Unknown 06/20/2024 Cigarette Smoke Medications fexofenadine (Radha Allergy) 180 MG tablet Take 180 mg by mouth Daily Active metFORMIN XR (Glucophage-XR) 500 MG 24 hr tablet Take 500 mg by mouth in the morning and 500 mg in the evening. Take after meals. Active cholecalciferol (Vitamin D-3) 50 MCG (1999) capsule Take 2,000 Units by mouth Daily Active meclizine (Antivert) 25 MG tablet Take 25 mg by mouth 3 (three) times a day as needed 04/18/19 24 Active albuterol (2.5 MG/3ML) 0.083% nebulizer solution Take 2.5 mg by nebulization every 6 (six) hours if needed 12/31/19 23 Active albuterol HFA 90 mcg/act inhaler Inhale 2 puffs every 6 (six) hours if needed 12/31/19 23 Active venlafaxine XR (Effexor XR) 75 MG 24 hr capsule Take 75 mg by mouth Daily 05/22/19 24 Active cyanocobalamin (Vitamin B-12) 1000 MCG tablet Take 1,000 mcg by mouth Daily Active drospirenone-ethi nyl estradiol (Letty, Ocella) 3-0.03 MG tabletIndications : control counseling Take 1 tablet by mouth Daily 84 tablet 3 08/29/19 Active Additional Information Patient not taking.Reported on 04/29/2024 busPIRone (Buspar) 5 MG tablet Take 5 mg by mouth 2 (two) times a day as needed Active Drospirenone (Slynd) 4 MG tabletIndications :Well woman exam with routine gynecological exam, control counseling Take 1 tablet by mouth Daily 84 tablet 3 03/06/19 Active Additional Information Patient not taking.Reported on 04/29/2024 furosemide (Lasix) 20 MG tabletIndications :Intracranial hypertension TAKE 1 TABLET(20 MG) BY MOUTH DAILY 30 tablet 2 04/24/19 Active venlafaxine XR (Effexor XR) 37.5 MG 24 hr capsule Take 37.5 mg by mouth Daily Do not crush or chew. TAKEN WITH 75 MG. Active norethindrone (Micronor) 0.35 MG tabletIndications : control counseling Take 1 tablet (0.35 mg) by mouth Daily 28 tablet 11 05/30/19 25 Active metoprolol succinate XL (Toprol-XL) 25 MG 24 hr tablet Take 25 mg by mouth in the morning. 05/16/19 25 Active levothyroxine (Synthroid, Levoxyl) 50 MCG tablet Take 50 mcg by mouth in the morning. Take before meals. Active Active Problems Problem Noted Date Diagnosed Date Vertigo of central origin 01/23/2024 Cervicalgia 01/22/2024 Balance disorder 01/22/2024 Carpal tunnel syndrome 07/30/2023 Carpal tunnel syndrome, bilateral upper limbs Dizziness and giddiness 06/20/2023 Depression 06/08/2022 Left carpal tunnel syndrome 06/08/2022 Right carpal tunnel syndrome 06/08/2022 Mass of left adrenal gland 06/08/2022 Obesity 06/08/2022 Polycystic ovaries 06/08/2022 Secondary amenorrhea 06/08/2022 Eustachian tube dysfunction 09/20/2017 Chronic tonsillitis 09/20/2017 Immunizations Immunization Administration Dates Next Due Influenza, injectable, MDCK, preservative free, quadrivalent 12/10/2021 Influenza, injectable, quadr ivalent, preservative free 11/18/2022,10/29/2018,11/09/2017,2016 Influenza, seasonal, injecta ble, preservative free 11/03/2014 Tdap 07/03/2021,12/29/2017 Family History Medical History Relation Name Comments No Known Problems Brother seasonal allergies Daughter Alcohol abuse Father Diabetes Father Breast cancer Maternal Grandmother Darcy [place] Cancer Maternal Grandmother Darcy [place] Uterine cancer Maternal Grandmother Darcy [place] Hyperlipidemia Mother pre-cancerous Mother had laser, lat er had hysterectomy varicose veins Mother Lung cancer Paternal Grandfather Cancer Paternal Grandmother Kim Maya Uterine cancer Paternal Grandmother Kim Maya No Known Problems Sister Relation Name Status Comments Brother x2 Daughter Father Alive Maternal Grandmother Darcy [place] Mother Alive Paternal Grandfather Paternal Grandmother Kim Maya Sister Social History Tobacco Use Types Packs/Day Years Used Date Smoking Tobacco: Never Smokeless Tobacco: Never Tobacco Cessation:Counseling Given: Not Answered Alcohol Use Standard Drinks/Week Comments Yes 1 (1 standard drink = 0.6 oz pur e alcohol) Education Answer Date Recorded What is the highest level of school you have completed or the highest degree you have received? 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 Not on file Not on file Last Filed Vital Signs Vital Sign Reading Time Taken Comments Blood Pressure 118/78 06/04/2024 11:24 AM EDT Pulse 89 07/17/2024 9:31 AM EDT Temperature - - Respiratory Rate 18 07/17/2024 9:31 AM EDT Oxygen Saturation 95% 07/17/2024 9:31 AM EDT Inhaled Oxygen Concentration - - Weight 126 kg (278 lb) 07/17/2024 9:31 AM EDT Height 165.1 cm (5' 5 ) 07/17/2024 9:31 AM EDT Body Mass Index 46.26 07/17/2024 9:31 AM EDT Plan of Treatment Upcoming Encounters Date Type Department Care Team (Late st Contact Info) Description 11/13/2024 9:30 AM EDT Office Visit [facility] [place] [facility] [address] [place] [address] Seamus Grier MD [address] [place] [address] 03/11/2025 4:00 PM EST Office Visit [facility] [address] [place] [address] Ricci Mullins, [address] [place] [address] Health Maintenance Due Date Last Done Comments Influenza Vaccine (#1) 2024 , 12/10/2021, 10/29/2018, Additional history exists Pap Smear 03/06/2027 03/06/2024, 03/05/2023, 02/06 Cervical Cancer Screening 03/05/2028 HPV/Cotest 03/05/2028 Procedures Procedure Name Priority Date/Time Associated Diagnosis Comments PAP SMEAR Routine 03/06/2024 12:00 AM EST from Last 3 Months or Most Recently Relevant to Health Maintenance Results * Pap Smear (03/06/2024 12:00 AM EST) Swab Cervical swab / Unknown Harpreet Nurse [facility] LAB CYTOLOGY ORDERABLES Final Result EXTERNAL LAB from Last 3 Months or Most Recently Relevant to Health Maintenance Insurance [facility] [place] IBANEZ [id number] Care Teams Blacksmith Supervisor Relationship Specialty Start Date End Date Edie Abreu MD PCP - General Family Medicine 06/27/22 Amos Johnson DO [address] [facility] [address] [place] [address] Referring Physician Neurology 03/11/24
--- OUTSIDE RECORDS SUMMARY | 2024-11-10 09:03 | XMS_ITS | Clinical Summary ---
Author Organization [facility] Address [address] [place] [address] Phone Care Team Providers Care Supervisor Special Services Name Role Phone Edie Abreu MD Primary Care Provider [phone] Allergies No known active allergies Medications metFORMIN XR 500 mg 24 hr tablet Take 1 tablet (500 mg) by mouth 2 times a day. Active venlafaxine XR (Effexor-XR) 37.5 mg 24 hr capsule Take 1 capsule (37.5 mg) by mouth once daily. 5 Active venlafaxine XR (Effexor-XR) 75 mg 24 hr capsule Take 1 capsule (75 mg) by mouth once daily. 4 Active cyanocobalamin (Vitamin B-12) 1,000 mcg tablet Take 1 tablet (1,000 mcg) by mouth once daily. Active cholecalciferol (Vitamin D-3) 50 mcg (2,000 units) capsule Take 1 capsule (2,000 Units) by mouth once daily. Active furosemide (Lasix) 20 mg tablet Take 2 tablets (40 mg) by mouth once daily. 5 Active albuterol 2.5 mg /3 mL (0.083 %) nebulizer solution 3 mL (2.5 mg) every 6 hours if needed for wheezing or shortness of breath. 3 Active fexofenadine (Radha) 180 mg tablet Take 1 tablet (180 mg) by mouth once daily. Active ondansetron ODT (Zofran-ODT) 4 mg disintegrating tablet 1 tablet (4 mg) every 8 hours if needed. 4 Active fluticasone (Flonase) 50 mcg/actuation nasal spray Administer 1 spray into affected nostril(s) once daily as needed. Active Active Problems Problem Noted Date Diagnosed Date Tachycardia 08/21/2024 BMI 45.0-49.9, adult (Multi) 05/15/2024 Never smoked tobacco 05/15/2024 Insulin resistance 05/15/2024 PCOS (polycystic ovarian syndrome) 05/15/2024 Hyperlipidemia 05/15/2024 Adrenal mass 1 cm to 4 cm in diameter with no history of malignant neoplasm 05/15/2024 Vitamin D deficiency 05/15/2024 Hx of section 05/15/2024 Lightheadedness 05/15/2024 SOB (shortness of breath) on exertion 05/15/2024 Near syncope 05/15/2024 Anxiety 05/15/2024 Palpitations 05/15/2024 Snoring 05/15/2024 Vertigo 05/15/2024 Family history of breast cancer 05/15/2024 Encounter to establish care 05/15/2024 Encounters Date Type Department Care Team Description 08/21/2024 11:15 AM EDT Office Visit [address] [phone] Fran Oseguera MD Lightheadedness; Mixed hyperlipidemia; SOB (shortness of breath) on exertion; Tachycardia; Palpitations; PCOS (polycystic ovarian syndrome); Snoring; Never smoked tobacco; BMI 45.0-49.9, adult (Multi) 08/20/2024 Travel from Last 3 Months Family History Medical History Relation Name Comments ADD / ADHD Brother No Known Problems Father Hyperlipidemia Mother Hypotension Mother Relation Name Status Comments Brother Father Mother Social History Tobacco Use Types Packs/Day Years Used Date Smoking Tobacco: Never Smokeless Tobacco: Never Alcohol Use Standard Drinks/Week Comments Yes 1 (1 standard drink = 0.6 oz pur e alcohol) rare Comments Unknown Sex and Gender Information Value Date Recorded Sex Assigned at Not on file Legal Sex Female 8:42 AM EDT Gender Identity Not on file Sexual Orientation Not on file Last Filed Vital Signs Vital Sign Reading Time Taken Comments Blood Pressure 104/60 08/21/2024 11:22 AM EDT Pulse 82 08/21/2024 11:22 AM EDT Temperature - - Respiratory Rate - - Oxygen Saturation - - Inhaled Oxygen Concentration - - Weight 127 kg (280 lb) 08/21/2024 11:22 AM EDT Height 165.1 cm (5' 5 ) 08/21/2024 11:22 AM EDT Body Mass Index 46.59 08/21/2024 11:22 AM EDT Plan of Treatment Health Maintenance Due Date Last Done Comments HIV Screening 1988 Lipid Panel 1988 MMR Vaccines (1 of 1 - Standard series) 02/27/1989 Hepatitis C Screening 02/27/2006 Hepatitis B Vaccines (1 of 3 - 19+ 3-dose series) 02/27/2007 HPV/Cotest 02/27/2009 HPV Vaccines (1 - 3-dose standard series) 02/27/2015 Diabetes Screening 05/07/2023 05/06/2020 COVID-19 Vaccine ( season) 2024 11/18/2022, 11/30/2020, 03/18/2020, Additional history exists Influenza Vaccine (#1) 2024 , 12/10/2021, 10/29/2018, Additional history exists Yearly Adult Physical 03/07/2025 03/06/2024, 024 Cervical Cancer Screening 03/06/2027 Pap Smear 03/06/2027 03/06/2024, 03/05/2023 DTaP/Tdap/Td Vaccines (3 - Td or Tdap) 07/04/2031 07/03/2021, 12/29/2017, 10/27/2013 Zoster Vaccines (1 of 2) 02/27/2038 HIB Vaccines Aged Out No longer eligi ble based on patient's age to complete this topic Hepatitis A Vaccines Aged Out No long er eligible based on patient's age to complete this topic IPV Vaccines Aged Out No longer eligi ble based on patient's age to complete this topic Meningococcal Vaccine Aged Out No yu yony eligible based on patient's age to complete this topic Pneumococcal Vaccine: Pediatrics and At-Risk Adult Patients Aged Out No longer eligible based on patient's age to complete this topic Rotavirus Vaccines Aged Out No longer eligible based on patient's age to complete this topic Insurance [email or web address] [facility] RESOURCES Care Teams Supervisor Special Services Relationship Specialty Start Date End Date Edie Abreu MD [address] [place] [address] PCP - General Family Medicine 05/15/24
--- OUTSIDE RECORDS SUMMARY | 2024-11-10 09:03 | XMS_ITS | Encounter Summary ---
Author Organization [facility] Address [facility] [place] [address] Care Team Providers Care Sharepoint Admin Name Role Phone Yuriy Le Unavailable Edie Abreu MD Primary Care Provider [phone] Source Comments In the event this information is protected by the Federal Confidentiality of Alcohol and Drug AbusePatient Records regulations: The Federal rules restrict any use of the information to criminally investigate or prosecute any alcohol or drug abuse patient.[facility] Encounter Details Date Type Department Care Team (Late st Contact Info) Description 09/09/2020 Patient Msg Reproductive Endocrinology Infertility [address] [id number] Provider, [facility] RE: labs Social History Tobacco Use Types Packs/Day Years [...] N ot on file 01/15/2020 Data from: https://www.neighborhoodatlas.medicine.[facility].edu/. Last address used for calculation Not [...] on filedocumented in this encounter Care Teams Sharepoint Admin Relationship Specialty Start Date End Date Edie Abreu MD [address] [place] [address] PCP - General Family Medicine 11/21/19 Yuriy Le [address] [place] [address] Referring Party Plan Salesperson 02/20/19 documented as of this encounter
--- OUTSIDE RECORDS SUMMARY | 2024-11-10 09:03 | XMS_ITS | Encounter Summary ---
Author Organization [facility] Address [address] [facility] [place] [address] Care Team Providers Care Customer Service Rep Name Role Phone Edie Abreu MD Primary Care Provider [phone] Amos Johnson DO Unavailable [phone] Encounter Details Date Type Department Care Team ([facility] Contact Info) Description 08/10/2022 Abstract [facility] [address] [place] [address] Tristin Julio, LESLIE [address] [place], [place] [phone] Social History Tobacco Use Types Packs/Day Years Used Date Smoking Tobacco: Never Smokeless Tobacco: Never Alcohol Use Standard Drinks/Week Comments Yes 1 (1 standard drink = 0.6 oz pur e alcohol) Education Answer Date Recorded What is the highest level of school you have completed or the highest degree you have received? 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 No / Unsure 08/09/2022 11:18 AM EDT documented as of this encounter Plan of Treatment Upcoming Encounters Date Type Department Care Team (Late st Contact Info) Description 11/13/2024 9:30 AM EDT Office Visit [facility] [address] [place] [address] Seamus Grier MD [address] [place] [address] 03/11/2025 4:00 PM EST Office Visit [facility] [address] [place] [address] Ricci Mullins DO [address] [facility] [place] [address] documented as of this encounter Visit Diagnoses Not on filedocumented in this encounter Care Teams Customer Service Rep Relationship Specialty Start Date End Date Edie Abreu MD PCP - General Family Medicine 06/27/22 Amos Johnson DO [address] [place] [address] Referring Physician Neurology 03/11/24 documented as of this encounter
--- OUTSIDE RECORDS SUMMARY | 2024-11-10 09:03 | XMS_ITS | Encounter Summary ---
Author Organization [facility] Address [address] [place] [address] Care Team Providers Care Fourdrinier Machine Operator Name Role Phone Edie Abreu MD Primary Care Provider [phone] Amos Johnson DO Unavailable [phone] Encounter Details Date Type Department Care Team ([facility] Contact Info) Description 05/30/2024 Abstract [facility] [address] [facility] [facility] [place] [phone] Ricci Mullins DO [address] [facility] [address] [place] [place], [place] [phone] Social History Tobacco Use Types Packs/Day Years [...] 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 Not on file Not on file documented as of this encounter Plan of Treatment Upcoming Encounters Date Type Department Care Team ([facility] Contact Info) Description 11/13/2024 9:30 AM EDT Office Visit [facility] [address] [place] [phone] Seamus Grier MD [address] [place] [address] 03/11/2025 4:00 PM EST Office Visit [facility] [address] [place] [address] Ricci Mullins DO [address] [facility] [place] [address] documented as of this encounter Visit Diagnoses Not on filedocumented in this encounter Care Teams Fourdrinier Machine Operator Relationship Specialty Start Date End Date Edie Abreu MD PCP - General Family Medicine 06/27/22 Amos Johnson DO [address] [place] [address] Referring Physician Neurology 03/11/24 documented as of this encounter
--- OUTSIDE RECORDS SUMMARY | 2024-11-10 09:03 | XMS_ITS | Encounter Summary ---
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 Not on file Not on file documented as of this encounter Plan of Treatment Upcoming Encounters Date Type Department Care Team ([facility] Contact Info) Description 11/13/2024 9:30 AM EDT Office Visit [facility] Endocr[facility] [address] [place] [address] Seamus Grier MD [address] [place] [address] 03/11/2025 4:00 PM EST Office Visit [facility] Lisa OBGYN [address] [place] [address] Ricci Mullins DO [address] [facility] [place] [address] documented as of this encounter Procedures Procedure Name Priority Date/Time Associated Diagnosis Comments PAP SMEAR Routine 03/06/2024 12:00 AM EST documented in this encounter Results * Pap Smear (03/06/2024 12:00 AM EST) Swab Cervical swab / Unknown us Harpreet Nurse [facility] LAB CYTOLOGY ORDERABLES Final Result Performing Organization Address City/State/[facility] Co de Phone Number EXTERNAL LAB documented in this encounter Visit Diagnoses Not on filedocumented in this encounter Care Teams Live Out Nanny Relationship Specialty Start Date End Date Edie Abreu MD PCP - General Family Medicine 06/27/22 Amos Johnson DO [address] [place] [address] Referring Physician Neurology 03/11/24 documented as of this encounter
--- OUTSIDE RECORDS SUMMARY | 2024-11-10 09:03 | XMS_ITS | Encounter Summary ---
Author Organization [facility] Address [address] [place] [address] Phone Care Team Providers Care Second Steward Name Role Phone Edie Abreu MD Primary Care Provider [phone] Encounter Details Date Type Department Care Team (Late st Contact Info) Description 04/30/2024 Scanned Document [facility] [address] [place] [address] Scanning, Generic Provider Social History Tobacco Use Types Packs/Day Years Used Date Smoking Tobacco: Never Assessed Comments Unknown Sex and Gender Information Value Date Recorded Sex Assigned at Not on file Legal Sex Female 8:42 AM EDT Gender Identity Not on file Sexual Orientation Not on file documented as of this encounter Plan of Treatment Not on file documented as of this encounter Visit Diagnoses Not on filedocumented in this encounter Care Teams Second Steward Relationship Specialty Start Date End Date Edie Abreu MD [address] [place] [address] PCP - General Family Medicine 05/15/24 documented as of this encounter
--- OUTSIDE RECORDS SUMMARY | 2024-11-10 09:03 | XMS_ITS | Encounter Summary ---
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 Not on file Not on file documented as of this encounter Plan of Treatment Upcoming Encounters Date Type Department Care Team ([facility] Contact Info) Description 11/13/2024 9:30 AM EDT Office Visit IRENE Bey Endocrinology [address] [place] [address] Seamus Grier MD [address] [place] [address] 03/11/2025 4:00 PM EST Office Visit [facility] [place] [facility] [address] [place] [address] Ricci Mullins DO [address] [facility] [place] [address] documented as of this encounter Procedures Procedure Name Priority Date/Time Associated Diagnosis Comments MRI BRAIN WO & W Routine 08/20/2023 2:19 PM EDT documented in this encounter Results * MRI BRAIN WO & W (08/20/2023 2:19 PM EDT) Anatomical Region Laterality Modality Radiographic Sheri ging Amos Johnson DO IMG XR PROCEDURES Final R esult documented in this encounter Visit Diagnoses Not on filedocumented in this encounter Care Teams Director Process Engineering Relationship Specialty Start Date End Date Edie Abreu MD PCP - General Family Medicine 06/27/22 Amos Johnson DO [address] [place] [address] Referring Physician Neurology 03/11/24 documented as of this encounter
--- OUTSIDE RECORDS SUMMARY | 2024-11-10 09:03 | XMS_ITS | Encounter Summary ---
Author Organization [facility] Address [address] [place] [address] Care Team Providers Care Kalsominer Name Role Phone Yuriy Le Unavailable Edie Abreu MD Primary Care Provider [phone] Source Comments In the event this information is protected by the Federal Confidentiality of Alcohol and Drug AbusePatient Records regulations: The Federal rules restrict any use of the information to criminally investigate or prosecute any alcohol or drug abuse patient.[facility] Encounter Details Date Type Department Care Team (Latest Contact Info) Description 06/17/2020 Get Medical Advice Reproductive Endocrinology Infertility [address] [place] [address] Emmanuel Munoz MD [address] [place] [address] RE: Test Result Question Social History Tobacco Use Types Packs/Day [...] N ot on file 01/15/2020 Data from: https://www.neighborhoodatlas.medicine.[facility].edu/. Last address used for calculation [...] on filedocumented in this encounter Care Teams Kalsominer Relationship Specialty Start Date End Date Edie Abreu MD [address] [place] [address] PCP - General Family Medicine 11/21/19 Yuriy Le [address] [place] [address] Referring Assistant Professor Of Mathematics 02/20/19 documented as of this encounter
--- OUTSIDE RECORDS SUMMARY | 2024-11-10 09:03 | XMS_ITS | Encounter Summary ---
Author Organization [facility] Address [address] [place] [address] Care Team Providers Care Economic Forecaster Name Role Phone Edie Abreu MD Primary Care Provider [phone] Amos Johnson DO Unavailable [phone] Encounter Details Date Type Department Care Team ([facility] Contact Info) Description 12/05/2022 Clinisync Result Encounter NOMS External Department Unsolicited Dallas Mullins DO [address] 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 [place] [address] documented as of this encounter Procedures Procedure Name Priority Date/Time Associated Diagnosis Comments US PELVIS W/ TRANSVAGINAL 12/05/2022 12:33 AM EDT documented in this encounter Results * US PELVIS W/ TRANSVAGINAL (12/05/2022 12:33 AM EDT) Anatomical Region Laterality Modality Other 12/05/2022 12:3 3 AM EDT Narrative 12/05/2022 12:33 [place] [address] Ultrasound Report Signed Patient: REBECCA ASHER MR#: [id number] : 1990 Acct:[id number] Age/Sex: 32 / F ADM Date: 12/04/22 Loc: US Attending Dr: Dallas Mullins D.O. Ordering Physician: Dallas Mullins D.O. Date of Service: 12/04/22 Procedure(s): US pelvis w/ transvaginal Accession Number(s): [id number] cc: Dallas Mullins D.O.; Physician,Non-Staff M.DWendy The [address] [address] Patient Name: REBECCA ASHER MRN: [id number] date: 1990 Sex: F Assigned Patient Location: US Current Patient Location: Accession/Order Number: [id number] Exam Date: 12/04/2022 10:12 Report Date: 12/05/2022 00:33 At the request of: DALLAS MULLINS Procedure: US pelvis w/ transvaginal EXAMINATION: US pelvis w/ transvaginal HISTORY: Infertility Counseling Z31.69 COMPARISON: Ultrasound pelvis 07/24/2018 TECHNIQUE: Transabdominal and/or transvaginal sonographic examination was performed as indicated by examination type. FINDINGS: UTERUS: Normal size and appearance. Uterus size: 7.7 x 3.6 x 4.9 cm ENDOMETRIUM: Normal homogeneous appearance. Endometrial thickness: 6 mm RIGHT OVARY: Contains several cysts versus prominent follicles, largest is 1.9 cm. Duplex Doppler demonstrates normal waveform and flow; resistive index 0.7. Ovary size: 5.0 x 2.9 x 4.5 cm LEFT OVARY: Contains several small follicles. Duplex Doppler demonstrates normal waveform and flow; resistive index 0.5. Ovary size: 4.0 x 2.8 x 3.2 cm CUL-DE-SAC: Unremarkable. No significant free fluid. BLADDER: Unremarkable. OTHER: None. US/US pelvis w/ transvaginal IMPRESSION: 1. Bilateral ovarian follicles. 2. Normal appearance of uterus, endometrium, and ovaries. Electronically authenticated by: ANDREI PURI Date: 12/05/2022 00:33 Dictated By: Andrei Puri M.D. Signed By: 12/05/22 0149 DD/ 0033 TD/TT: Tax Compliance Representative: Procedure Note Radiology, Radiologist, MD - 12/05/2022 [place] [address] Ultrasound Report Signed Patient: REBECCA ASHER [facility]#: [id number] : 1990Acct:[id number] Age/Sex: 32 / FADM Date: 12/04/22 Loc: US Attending Dr: Dallas Mullins D.O. Ordering Physician: Dallas Mullins D.O. Date of Service: 12/04/22 Procedure(s): US pelvis w/ transvaginal Accession Number(s): [id number] cc: Dallas Mullins D.O.; Physician,Non-Staff Rohit The [place] [id number] Patient Name: REBECCA ASHER MRN: [facility]:[id number] date: 1990 Sex: F Assigned Patient Location: US Current Patient Location: Accession/Order Number: [id number] Exam Date: 12/04/2022 10:12 Report Date: 12/05/2022 00:33 At the request of: DALLAS MULLINS Procedure: US pelvis w/ transvaginal EXAMINATION: US pelvis w/ transvaginal HISTORY: Infertility Counseling Z31.69 COMPARISON: Ultrasound pelvis 07/24/2018 TECHNIQUE: Transabdominal and/or transvaginal sonographic examination was performed as indicated by examination type. FINDINGS: UTERUS: Normal size and appearance. Uterus size: 7.7 x 3.6 x 4.9 cm ENDOMETRIUM: Normal homogeneous appearance. Endometrial thickness: 6 mm RIGHT OVARY: Contains several cysts versus prominent follicles, largest is1.9 cm. Duplex Doppler demonstrates normal waveform and flow; resistive index0.7. Ovary size: 5.0 x 2.9 x 4.5 cm LEFT OVARY: Contains several small follicles. Duplex Doppler demonstrates normal waveform and flow; resistive index 0.5. Ovary size: 4.0 x 2.8 x 3.2cm CUL-DE-SAC: Unremarkable. No significant free fluid. BLADDER: Unremarkable. OTHER: None. US/US pelvis w/ transvaginal IMPRESSION: 1. Bilateral ovarian follicles. 2. Normal appearance of uterus, endometrium, and ovaries. Electronically authenticated by: ANDREI PURI Date: 12/05/2022 00:33 Dictated By: Andrei Puri M.D. Signed By:12/05/22 0149 DD/ 0033 TD/TT: Tax Compliance Representative: us Dallas Mullins DO [facility] Final Result documented in this encounter Visit Diagnoses Not on filedocumented in this encounter Care Teams Economic Forecaster Relationship Specialty Start Date End Date Edie Abreu MD PCP - General Family Medicine 06/27/22 Amos [place] DO [address] [place] [address] Referring Physician Neurology 03/11/24 documented as of this encounter
--- OUTSIDE RECORDS SUMMARY | 2024-11-10 09:03 | XMS_ITS | Clinical Summary ---
Author Organization [facility] Address [address] [place], [place] [address] Care Team Providers Care Front Line Supervisor Name Role Phone Yuriy Le Unavailable Edie Abreu MD Primary Care Provider [phone] Allergies No known active allergies Medications fluticasone (FLONASE) 50 mcg/actuation nasal spray Use 1 Mcleod in the nose as needed. Active sertraline (ZOLOFT) 50 mg tablet Take 50 mg by mouth once daily. Active fexofenadine ER (LUISA ALLERGY) 180 mg tablet Take 180 mg by mouth as needed. Active vit/iron fum/folic ac ( 1 + 1 ORAL) Take 1 tablet by mouth once daily. Active medroxyPROGESTER one (PROVERA) 10 mg tablet Take 1 tablet by mouth once daily for 10 days. 10 tablet 09/13/2020 Active metFORMIN ER (GLUCOPHAGE XR) 500 mg 24 hr tabletIndication s:PCOS (polycystic ovarian syndrome) TAKE 1 TABLET BY MOUTH TWICE DAILY WITH MEALS 120 tablet 01/09/2022 Active Social History Tobacco Use Types Packs/Day Years [...] ot on file 01/15/2020 Data from: https://www.neighborhoodatlas.medicine.[facility].edu/. Last address used for calculation Not on file 01/15/2020 Comments No Sex and Gender Information Value Date Recorded Sex Assigned at Female 05/04/2020 12:05 AM EDT Legal Sex Female 8:39 AM EST Gender Identity Female 05/04/2020 12:05 AM EDT Sexual Orientation Straight 05/04/2020 12 :05 AM EDT Last Filed Vital Signs Vital Sign Reading Time Taken Comments Blood Pressure 119/64 05/06/2020 8:27 AM EDT Pulse 64 05/06/2020 8:27 AM EDT Temperature - - Respiratory Rate - - Oxygen Saturation - - Inhaled Oxygen Concentration - - Weight 104.6 kg (230 lb 8 oz) 05/06/2020 8:27 AM EDT Height 167.6 cm (5' 6 ) 05/06/2020 8:27 AM EDT Body Mass Index 37.2 05/06/2020 8:27 AM EDT Plan of Treatment Health Maintenance Due Date Last Done Comments Anxiety Screening 02/27/2006 Depression Screening 02/27/2006 HIV Screening 02/27/2006 Hepatitis C Screening 02/27/2006 Hepatitis B Vaccine (1 of 3 - 19+ 3-dose series) 02/27/2007 HPV Vaccine (1 - 3-dose SCDM series) 02/27/2015 Cervical Cancer Screening 07/15/2021 07/15/2018 Covid-19 Vaccine (3 - 2024-2 6 season) 2024 03/18/2020, 02/19/2020 Influenza Vaccine (#1) 2024 , 10/29/2018, 11/09/2017, Additional history exists DTaP,Tdap,Td Vaccine (2 - Td or Tdap) 12/30/2027 12/29/2017 Insurance MMO [facility] PPO Care Teams Front Line Supervisor Relationship Specialty Start Date End Date Edie Abreu MD [address] [place] [address] PCP - General Family Medicine 11/21/19 Yuriy Le [address] [place] [address] Referring Gear Changer 02/20/19
--- OUTSIDE RECORDS SUMMARY | 2024-11-10 09:03 | XMS_ITS | Patient Health Record ---
Author Organization [facility] Billing Info Address [address] [place] [address] Care Team Providers Care Mastic Man Name Role Phone SAYRA SUE Unavailable [phone] Allergies Allergen (clinical drug ingredient) Drug/Non Drug Allergy documented on EMR Reaction Allergy Type Onset Date Status CIGARETTE SMOKE Unknown Drug Allergy A ctive CATS Unknown Drug Allergy Active Reason For Referral No Information Medications Medication SIG (Take, Route, Frequency, Duration) Notes Start Date End Date Status Zyrtec Allergy 10 MG 1 tablet Orally Onc e a day for 30 day(s) Active Ortho Tri-Cyclen (28) 0.18/0.215/0.25 MG-35 MCG 1 tablet Orally Once a day for 28 day(s) Active Spironolactone 25 MG 1 tablet Orally Onc e a day for 30 days 07/19/2012 Active Bactrim DS 800-160 MG 1 tablet Orally Tw ice a day for 10 day(s) 01/01/2013 Active MetFORMIN HCl ER 500 mg 1 tablet Orally bid for 30 day(s) 08/01/2012 Active Problems Problem Type SNOMED Code ICD Code Onset Dates Problem Status W/U Status Risk Notes Problem [id number] Allergic rhinitis (477.9) Active confirmed Problem 34207717 PCOS (polycystic ovarian syndrome) (256.4) Active confirmed Plan Of Treatment No Information Insurance Providers Payer Name Payer Address Payer Phone Subscriber Number Group Number Insured Name Patient Relationship to Insured Coverage Start Date Coverage End Date [facility] HMO CHOICE PLUS [address] [facility] [place] [place] [id number] [phone] [id number] Swati Maya Self - patient is the insured 3 3 Medical (General) History Medical History History ICD Code polycystic ovarian syndrome allergies Surgical History Surgery Date(Month/Year) adrenolectomy-left side
--- OUTSIDE RECORDS SUMMARY | 2024-11-10 09:03 | XMS_ITS | Encounter Summary ---
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 No / Unsure 06/28/2022 8:39 AM EDT documented as of this encounter Plan of Treatment Upcoming Encounters Date Type Department Care Team (Late st Contact Info) Description 11/13/2024 9:30 AM EDT Office Visit [facility]a Be[facility] Endocrinology [address] [place] [address] Seamus Grier MD [address] [place] [address] 03/11/2025 4:00 PM EST Office Visit [facility]a [place] OBGY[facility] [address] [place] [address] Ricci Mullins DO [address] [facility] [place] [address] documented as of this encounter Visit Diagnoses Not on filedocumented in this encounter Care Teams Entry Level Drafter Relationship Specialty Start Date End Date Edie Abreu MD PCP - General Family Medicine 06/27/22 Amos Johnson DO [address] [place] [address] Referring Physician Neurology 03/11/24 documented as of this encounter
--- OUTSIDE RECORDS SUMMARY | 2024-11-10 09:03 | XMS_ITS | Encounter Summary ---
Author Organization [facility] Address [address] [place] [address] Care Team Providers Care Glass Smoother Name Role Phone Yuriy Le Unavailable Edie Abreu MD Primary Care Provider [phone] Source Comments In the event this information is protected by the Federal Confidentiality of Alcohol and Drug AbusePatient Records regulations: The Federal rules restrict any use of the information to criminally investigate or prosecute any alcohol or drug abuse patient.[facility] Encounter Details Date Type Department Care Team (Latest Contact Info) Description 09/03/2020 Get Medical Advice Reproductive Endocrinology Infertility [address] [place] [address] Emmanuel Munoz MD [address] [place] [address] RE: Visit Follow Up Question Social History Tobacco Use Types Packs/Day Years Used Date Smoking Tobacco: Never Smokeless Tobacco: Never Alcohol Use Standard Drinks/Week Comments Yes 0 (1 standard drink = 0.6 oz pur e alcohol) socially Area Deprivation Index Answer Date Mamaodu rded National Score (1-100), lower number is lower ri sk Not on file 01/15/2020 State Score (1-10), lower number is lower risk N ot on file 01/15/2020 Data from: https://www.neighborhoodatlas.medicine.[facility].edu/. Last address used for calculation Not [...] on filedocumented in this encounter Care Teams Glass Smoother Relationship Specialty Start Date End Date Edie Abreu MD [address] [place] [address] PCP - General Family Medicine 11/21/19 Yuriy Le [address] [place] [address] Referring Inventory Associate 02/20/19 documented as of this encounter
--- OUTSIDE RECORDS SUMMARY | 2024-11-10 09:03 | XMS_ITS | Encounter Summary ---
Author Organization [facility] Address [address] [place] [address] Phone Care Team Providers Care Shirt Presser Name Role Phone Edie Abreu MD Primary Care Provider [phone] Encounter Details Date Type Department Care Team ([facility] st Contact Info) Description 05/17/2024 Scanned Document [facility] [address] [place] [address] Scanning, Generic Provider Social History Tobacco Use [...] on file Sexual Orientation Not on file COVID-19 Exposure Response Date Recorded In the last 10 days, have yo u been in contact with someone who was confirmed or suspected to have Coronavirus/COVID-19? No / Unsure 05/19/2024 7:46 AM EDT documented as of this encounter Functional Status * Communicable Disease Screening Question Answer Date of Assessment Author Do you have any of the follo wing new or worsening symptoms? None of these 05/19/2024 7:46 AM EDT Ori Blunt documented as of this encounter Plan of Treatment Not on file documented as of this encounter Procedures Procedure Name Priority Date/Time Associated Diagnosis Comments OUTSIDE LAB SCAN 05/17/2024 OUTSIDE LAB SCAN 05/17/2024 OUTSIDE LAB SCAN 05/17/2024 documented in this encounter Results * OUTSIDE LAB SCAN (05/17/2024) Narrative 05/17/2024 Ordered by an unspecified provider. us Generic Provider Scanning OUTSIDE SCAN Final Result * OUTSIDE LAB SCAN (05/17/2024) Narrative 05/17/2024 Ordered by an unspecified provider. us Generic Provider Scanning OUTSIDE SCAN Final Result * OUTSIDE LAB SCAN (05/17/2024) Narrative 05/17/2024 Ordered by an unspecified provider. us Generic Provider Scanning OUTSIDE SCAN Final Result documented in this encounter Visit Diagnoses Not on filedocumented in this encounter Care Teams Shirt Presser Relationship Specialty Start Date End Date Edie Abreu MD [address] [place] [address] PCP - General Family Medicine 05/15/24 documented as of this encounter
--- OUTSIDE RECORDS SUMMARY | 2024-11-10 09:03 | XMS_ITS | Encounter Summary ---
Author Organization [facility] Address [address] [place] [address] Care Team Providers Care Postmaster Relief Name Role Phone Yuriy Le Unavailable Edie Abreu MD Primary Care Provider [phone] Source Comments In the event this information is protected by the Federal Confidentiality of Alcohol and Drug AbusePatient Records regulations: The Federal rules restrict any use of the information to criminally investigate or prosecute any alcohol or drug abuse patient.[facility] Encounter Details Date Type Department Care Team (Latest Contact Info) Description 11/23/2020 Get Medical Advice Reproductive Endocrinology Infertility [address] [place] [address] Emmanuel Munoz MD [address] [place] [address] RE: Non-Urgent Medical Question Social [...] N ot on file 01/15/2020 Data from: https://www.neighborhoodatlas.medicine.[facility].edu/. Last address used for calculation Not [...] on filedocumented in this encounter Care Teams Postmaster Relief Relationship Specialty Start Date End Date Edie Abreu MD [address] [place] [address] PCP - General Family Medicine 11/21/19 Yuriy Le [address] [place] [address] Referring Art History Professor 02/20/19 documented as of this encounter
--- OUTSIDE RECORDS SUMMARY | 2024-11-10 09:04 | XMS_ITS | Encounter Summary ---
Author Organization [facility] Address [address] [place] [id number] Care Team Providers Care Paper Counter Name Role Phone Yuriy Le Unavailable Edie Abreu MD Primary Care Provider [phone] Source Comments In the event this information is protected by the Federal Confidentiality of Alcohol and Drug AbusePatient Records regulations: The Federal rules restrict any use of the information to criminally investigate or prosecute any alcohol or drug abuse patient.[facility] Encounter Details Date Type Department Care Team (Latest Contact Info) Description 06/14/2020 Get Medical Advice Reproductive Endocrinology Infertility [address] [place] [address] Emmanuel Munoz MD [address] [place] [address] RE: Test Result Question Social [...] N ot on file 01/15/2020 Data from: [email or web address] Last address used for calculation [...] on filedocumented in this encounter Care Teams Paper Counter Relationship Specialty Start Date End Date Edie Abreu MD [address] [place] [id number] PCP - General Family Medicine 11/21/19 Yuriy Le [address] [place] [address] Referring Carton Machine Operator 02/20/19 documented as of this encounter
--- OUTSIDE RECORDS SUMMARY | 2024-11-10 09:19 | XMS_ITS | CCD ---
Author Organization [facility] CliniSysd Care Team Providers Care Beverage Steward Name Role Phone HARVINDER COLLINS Unavailable Unavailable HARVINDER COLLINS Unavailable Unavailable MISC, DOCTOR Unavailable Unavailable HARVINDER COLLINS Unavailable Unavailable HARPREET, DR HAYNES Attending Unavailable BUTTERFIELD, DR ALYSSA Francois Primary Care Unavailable [place], DR KULWINDER Lin Consulting Unavailable HARPREET, DR [...] ALYSSA Francois Primary Care Unavailable RUBI, DR KULWIDNER Lin Consulting Unavailable HARPREET, DR HAYNES Consulting Unavailable HARPREET, DR HAYNES Attending Unavailable BUTTERFIELD, DR ALYSSA Francois Primary Care Unavailable HARPREET, DR HAYNES Admitting Unavailable HARPREET, DR HAYNES Consulting Unavailable HARPREET, DR HAYNES Attending Unavailable HARPREET, DR HAYNES Admitting Unavailable BUTTERFIELD, DR ALYSSA Francois Primary Care Unavailable HARPREET, DR HAYNES Consulting Unavailable HARPREET, DR HAYNES Procedure Practitioner Unavailab conchis AGUBOSIMindi, MARCK Consulting Unavailable HARPREET, DR HAYNES Attending Unavailable HARPREET, DR HAYNES Admitting Unavailable SCOUT, DR ALYSSA Francois Primary Care Unavailable [place], DR KULWINDER Lin Consulting Unavailable HARPREET, DR HAYNES Consulting Unavailable Alyssa Butterfield Unavailable MD Alyssa Butterfield Primary Care Provider MD Alyssa Butterfield Attending Provider MD Alyssa Butterfield Primary Care Provider MD Alyssa Butterfield Attending Provider ALYSSA BUTTERFIELD Primary Care Unavailable DO Bonnie Johnson Attending Provider MD Alyssa Butterfield Primary Care Provider Luke WORKERS' COMPENSATION MEDIATOR-GLASSWARE FINISHER-C Naya Francois Attending Provider Alyssa Butterfield MD Primary Care Provider [phone] Alyssa Butterfield MD Primary Care Provider [phone] Luke WORKERS' COMPENSATION MEDIATOR-GLASSWARE FINISHER-C, Naya Francois Attending Provider Bonnie Johnson DO Unavailable Alyssa Butterfield MD Primary Care Provider Alyssa Butterfield MD Primary Care Provider Fran Velazquez MD Attending Provider Sushant Busch MD Referring Provider Alyssa Butterfield MD Primary Care Provider Bonnie Johnson DO Unavailable RICCI MULLINS Attending Unavailable NAYA BUTLER Attending Unavailable NAYA BUTLER Attending Unavailable SEAMUS GRIER Attending Unavailable ALYSSA BUTTERFIELD Referring Unavailable SEAMUS GRIER Referring Unavailable NAYA BUTLER Attending Unavailable BONNIE JOHNSON Referring Unavailable NAYA BUTLER Attending Unavailable BONNIE JOHNSON Attending Unavailable NAYA BUTLER Attending Unavailable YUN NARANJO Attending Unavailable NAYA BUTLER Referring Unavailable YUN NARANJO Attending Unavailable NAYA BUTLER Referring Unavailable Alyssa Butterfield MD Primary Care Provider Alyssa Butterfield MD Attending Provider [phone] Luke WORKERS' COMPENSATION MEDIATOR-GLASSWARE FINISHER-CNaya Attending Provider MARIELA, FRAN H Referring Unavailable ALYSSA BUTTERFIELD Primary Care Unavailable MARIELA, FRAN H Referring Unavailable ALYSSA BUTTERFIELD Primary Care Unavailable Alyssa Butterfield MD Primary Care Provider [phone] Alyssa Butterfield MD Attending Provider Alyssa Butterfield Primary Care Unavailable Naya Butler Admitting Unavailable Naya Butler Attending Unavailable Alyssa Butterfield Primary Care Unavailable Butler, Naya E Admitting Unavailable Butler, Naya Francois Attending Unavailable Chito Rios Admitting Unavailab Chito Casanova Attending Unavailab le Alyssa Butterfield Primary Care Unavailable Jackson Butterfieldia Alessandro Primary Care Unavailable Mariela, Fran H Admitting Unavailable Mariela, Fran H Attending Unavailable Sushant Busch Referring Unavailable MARIELA, FRAN H Attending Unavailable ALYSSA BUTTERFIELD Primary Care Unavailable MARIELA, FRAN H Referring Unavailable SCOUT ALYSSA E Primary Care Unavailable MARIELA, FRAN H Attending Unavailable MARIELA, FRAN H Referring Unavailable SCOUT ALYSSA E Primary Care Unavailable Allergies Allergy Classification Reported Allergen(s) Allergy Type Date of Onset Reaction(s) Facility (1 source) patient allergy list reviewed by nurse or physicia Propensity to adverse reactions 9 Comment:Done [facility] Other (1 source) Allergies Reconciled Propensity to adverse reactions Unknown [facility] Other (3 sources) Cat Dander Allergy to substance 5 Unknown [facility] (3 sources) Other Allergy to substance 5 Unknown [facility] Medications Current Medications Medication Drug Class(es) Dates [...] morning. Active drospirenone 4 mg oral tablet (18 sources) Progestin Start: 03-06-2024 End: 05-29-2024 take 1 tablet by mouth once daily Drospirenone (Contraceptive) (Slynd) 4 mg (28) tablet Active 1 TAB PO Daily March 27, 2024 1:00am Complies with drug therapy drospirenone 3 mg / ethinyl estradiol 0.03 mg oral tablet (20 sources) Progestin, Estrogen Start: 08-29-2023 End: 08-28-2024 drospirenone-ethinyl estradiol (Letty, Ocella) 3-0.03 MG tablet Indications: control counseling Take 1 tablet by mouth Daily 84 tablet 3 08/29/2023 08/28/2024 Active DROSPIRENONE, CONTRACEPTIVE, ORAL (4 sources) Start: 03-27-2024 End: 08-21-2024 DROSPIRENONE, CONTRACEPTIVE, ORAL Drospirenone (Contraceptive) (Slynd) 4 mg (28) tablet Active 1 TAB PO Daily March 27, 2024 1:00am 03/27/2024 08/21/2024 Discontinued (Therapy completed) Start: 03-27-2024 DROSPIRENONE, CONTRACEPTIVE, ORAL Drospirenone (Contraceptive) [...] propionate 0.05 mg/actuat metered dose nasal spray (7 sources) Corticosteroid take 1 spray(s) nasal route [...] once daily. 04/23/2024 Active Start: 10-16-2023 End: 08-04-2024 take 1 tablet by mouth once daily Furosemide 20 mg tablet Active 20 MG PO Daily August 04, 2024 2:05pm Complies with drug therapy letrozole 2.5 mg oral tablet (7 sources) Aromatase Inhibitor End: 08-21-2024 letrozole (Femara) 2.5 mg tablet Take by mouth. 08/21/2024 Discontinued (Therapy completed) levothyroxine sodium 0.05 mg oral tablet (5 sources) l-Thyroxine Start: 06-04-2024 take 1 tablet by mouth once daily Levothyroxine 50 mcg tablet Active 50 MCG PO Daily June 04, 2024 12:00am Complies with drug therapy meclizine hydrochloride 25 mg oral tablet (20 [...] succinate 25 mg extended release oral tablet (9 sources) beta-Adrenergic Finesse Start: 05-15-2024 End: 05-15-2025 take 1 tablet by mouth every twenty-four hours Metoprolol Succinate 25 mg tablet extended release 24 hr Active MG PO June 04, 2024 12:00am Complies with drug therapy Start: 05-15-2024 End: 05-15-2025 take 1 tablet by mouth once daily metoprolol succinate XL (Toprol-XL) 25 mg 24 hr tablet Indications: Palpitations , Tachycardia Take 1 tablet (25 mg) by mouth once daily. Do not crush or chew. 90 tablet 3 05/15/2024 05/15/2025 Active Naproxen (18 sources) Nonsteroidal Anti-inflammatory Drug End: 03-06-2024 NAPROXEN PO Naproxen 03/06/2024 Discontinued NAPROXEN PO Napr oxen Active norethindrone 0.35 mg oral tablet (3 sources) Start: 05-29-2024 End: 05-29-2025 take 1 tablet by mouth once daily norethindrone (Micronor) 0.35 MG tablet Indications: control counseling Take 1 tablet (0.35 mg) by mouth Daily 28 tablet 11 05/29/2024 05/29/2025 Active ondansetron 4 mg disintegrating oral tablet [...] Serotonin and Norepinephrine Reuptake Inhibitor Start: 03-28-2024 End: 07-30-2024 take 1 capsule by mouth once daily venlafaxine XR (Effexor-XR) 37.5 mg 24 hr capsule Take 1 capsule (37.5 mg) by mouth once daily. 03/28/2024 Active Start: 07-31-2023 take 75 mg by mouth once daily Venlafaxine Active 75 MG PO Daily July 31, 2023 3:29pm Start: 05-22-2023 take 1 capsule by mo uth once daily venlafaxine XR (Effexor-XR) 75 mg 24 hr capsule Take 1 capsule (75 mg) by mouth once daily. 05/22/2023 Active Start: 04-13-2023 End: 03-06-2024 take 1 capsule by mouth once daily Venlafaxine 37.5 mg capsule,extended release 24hr Discontinued 75 MG PO Daily July 31, 2023 3:29pm March 06, 2024 10:47am vitamin b12 1 mg oral tablet (20 [...] mg / clavulanate 125 mg oral tablet (13 sources) Penicillin-class Antibacterial Start: 05-01-2024 End: 06-04-2024 take 1 tablet by mouth twice daily Amoxicillin-Pot Clavulanate 875-125 mg tablet Discontinued 1 TAB PO Twice daily May 01, 2024 3:07pm June 04, 2024 11:24am Start: 02-14-2024 End: 02-26-2024 take 1 tablet by mouth twice daily Amoxicillin-Pot Clavulanate 875-125 mg tablet Discontinued 1 TAB PO Twice daily February 14, 2024 1:00am February 26, 2024 11:05am azithromycin 250 mg oral tablet (20 sources) Macrolide Antimicrobial Start: 07-31-2023 End: 08-16-2023 Azithromycin 250 mg tablet Discontinued 0 PO .COMPLEX July 31, 2023 [...] 5:00pm docosahexaenoic acid 200 mg oral capsule (20 sources) Start: 04-13-2023 End: 09-25-2023 Docosahexaenoic Acid [...] tablet (20 sources) Biguanide Start: 09-17-2023 End: 06-23-2024 take 1 tablet by mouth twice daily Metformin 500 mg tablet extended release 24 hr Discontinued 0 .ROUTE .COMPLEX 180 March 21, 2024 1:46pm June 23, 2024 12:33pm TAKE 1 TABLET BY MOUTH TWICE DAILY Start: 06-08-2023 End: 09-17-2023 take 1 tablet by mouth twice daily Metformin 500 mg tablet extended release 24 hr Discontinued 500 MG PO Twice daily June 11, 2023 8:34am September 17, 2023 [...] (20 sources) Serotonin Reuptake Inhibitor Start: End: 4 take 1 tablet by mouth once daily [...] tonsillitis] Onset: 8 07-12-2022 Chronic Anxiety disorders (20 sources) Anxiety; Translations: [Anxiety disorder, unspecified] Onset: 5 09-06-2023 Chronic Cardiac dysrhythmias (20 sources) Palpitations; Translations: [Palpitations] Onset: 5 05-15-2024 Episodic Chronic obstructive pulmonary disease and bronchiectasis (20 sources) Bronchitis; Translations: [Bronchitis, not specified as acute or chronic] 08-01-2023 Episodic Disorders of lipid metabolism (8 sources) Mixed hyperlipidemia; Translations: [Mixed hyperlipidemia] Onset: [...] PAPILLOMAVIRUS] Onset: 3 Episodic Malaise and fatigue (5 sources) Fatigue; Translations: [Other fatigue] 05-01-2024 Episodic Menstrual disorders (20 sources) Amenorrhea; Translations: [Secondary amenorrhea] Onset: 7 06-08-2022 Chronic Mood disorders (20 sources) Depressive disorder; Translations: [Depression] Onset: 3 04-13-2023 Chronic Nutritional deficiencies (9 sources) Vitamin D deficiency; Translations: [Vitamin D deficiency, unspecified] Onset: 5 05-15-2024 Chronic Other aftercare (1 source) History and physical examination, follow-up; Translations: [Encounter for follow-up examination after completed treatment for conditions other than malignant neoplasm] Episodic Other aftercare (13 sources) Patient encounter status; Translations: [Encounter for [...] , second trimester] Episodic Other complications of (20 sources) Complication of , childbirth and/or the puerperium; Translations: [Other specified related conditions, unspecified trimester] 01-17-2023 Episodic Comment on above: Problem List clean-u p per request of Phys. EHR Cmte Other endocrine disorders (6 sources) Polycystic ovarian syndrome; Translations: [Polycystic ovaries] Onset: 2 12-24-2023 Chronic Other endocrine disorders (4 sources) Polycystic ovaries; Translations: [Polycystic ovarian syndrome] Chronic Other endocrine disorders (20 sources) Mass of left adrenal gland; Translations: [Other specified disorders of adrenal gland] Onset: 3 06-08-2022 Chronic Other endocrine disorders (20 sources) Polycystic ovary; Translations: [Polycystic ovarian syndrome] Onset: 3 06-08-2022 Chronic Other endocrine disorders (15 sources) Polycystic ovary syndrome; Translations: [Polycystic ovarian syndrome] Onset: 5 01-01-2024 Chronic Other endocrine disorders (5 sources) Adrenal mass; Translations: [Other specified disorders of adrenal gland] Onset: 5 05-15-2024 Chronic Other endocrine disorders (2 sources) Other specified disorders of adrenal gland; Translations: [Other specified disorders of adrenal gland] Onset: 5 Chronic Other gastrointestinal disorders (3 sources) Irritable bowel syndrome with diarrhea; Translations: [Irritable bowel syndrome with diarrhea] Chronic Other gastrointestinal disorders (1 source) Passing flatus; Translations: [Flatulence] Episodic Other lower respiratory disease (13 sources) Dyspnea on exertion; Translations: [Shortness of breath] Onset: 5 05-15-2024 Episodic Other nervous system disorders (20 sources) Raised intracranial pressure; Translations: [Benign intracranial [...] upper limbs] Onset: 4 07-30-2023 Chronic Other non-traumatic joint disorders (1 source) Pain in right wrist Episodic Other non-traumatic joint disorders (1 source) Pain in left wrist Episodic Other nutritional; endocrine; and metabolic disorders (10 sources) Body mass index 40+ - severely [...] (BMI) of 45.0 to 49.9 in adult ([facility])] 11-20-2023 Chronic Other nutritional; endocrine; and metabolic disorders (5 sources) Insulin resistance; Translations: [Insulin resistance] Onset: 5 05-15-2024 Chronic Other nutritional; endocrine; and metabolic disorders (2 sources) Obesity caused by energy imbalance; Translations: [Class 2 obesity due to excess calories without serious comorbidity with body mass index (BMI) of 36.0 to 36.9 in adult] 07-17-2024 Chronic Other nutritional; endocrine; and metabolic disorders (2 sources) Body mass index (BMI) 45.0-49.9, adult; Translations: [Body mass index (BMI) 45.0-49.9, adult ([facility])] Onset: 5 Chronic Other and delivery including normal (11 sources) Encounter for care and examination of lactating mother; Translations: [Encounter for routine follow-up] Onset: 2 Episodic Other upper respiratory disease (1 source) Seasonal allergic rhinitis; Translations: [Other seasonal allergic rhinitis] Onset: 7 Chronic Other upper respiratory disease (1 source) Allergic rhinitis; Translations: [Allergic rhinitis, unspecified] Onset: 6 Chronic Other upper respiratory infections (20 sources) Acute pharyngitis; Translations: [Acute pharyngitis, unspecified] [...] gestation of ] Episodic Residual codes; unclassified (6 sources) Never smoked tobacco; Translations: [Other specified health status] Onset: 5 05-15-2024 Episodic Thyroid disorders (2 sources) Subclinical hypothyroidism; Translations: [Other specified hypothyroidism] 07-17-2024 Chronic Unclassified (20 sources) Encounter for screening [...] (1 source) First encounter by subject 05-16-2024 Unclassified (1 source) Insulin resistance, unspecified; Translations: [Insulin resistance, unspecified] Onset: 5 Viral infection (13 sources) Viral infection, unspecified; Translations: [Enteroviral vesicular stomatitis with exanthem] Onset: 4 01-21-2024 Episodic Past or Other Problems Problem Classification Problem Date Documented Date Episodic/Chronic Administrative/social admission (7 sources) First encounter by subject; Translations: [Persons encountering health services in other specified circumstances] Onset: 05-15-2024 05-15-2024 Episodic Conditions associated with dizziness or vertigo (20 sources) Vertigo; Translations: [Dizziness and giddiness] Onset: 06-20-2023 04-16-2023 Episodic Diabetes mellitus without complication (5 sources) Other [...] Translations: [Cough, unspecified] Resolved: 07-05-2021 Episodic Other lower respiratory disease (7 sources) Snoring; Translations: [Snoring] Onset: 05-15-2024 05-15-2024 Episodic Other lower respiratory disease (5 sources) Shortness of breath; Translations: [Shortness of breath] Onset: 05-15-2024 Episodic Other lower respiratory disease (1 source) Snoring; Translations: [Snoring] Onset: 05-15-2024 Episodic Other nervous system disorders (19 sources) Impairment of balance; Translations: [Other abnormalities of gait and mobility] Onset: 01-22-2024 01-22-2024 Episodic Other skin disorders (1 source) Hirsutism; [...] ] Resolved: 07-05-2021 Episodic Residual codes; unclassified (3 sources) History of uterine scar from previous surgery; Translations: [History of uterine scar from previous surgery] Onset: 05-15-2024 Episodic Residual codes; unclassified (1 source) Gestation period, 34 weeks; Translations: [34 weeks gestation of ] Resolved: 07-21-2021 Episodic Residual codes; unclassified (7 sources) Family history of breast cancer; Translations: [Family history of malignant neoplasm of breast] Onset: 05-15-2024 05-15-2024 Episodic Residual codes; unclassified (1 source) Family history of malignant neoplasm of breast; Translations: [Family history of malignant neoplasm of breast] Onset: 05-15-2024 Episodic Residual codes; unclassified (2 sources) Other specified health status; Translations: [Other specified health status] Onset: 05-15-2024 Episodic Spondylosis; intervertebral disc disorders; other back problems (20 sources) Neck pain; Translations: [Cervicalgia] Onset: 01-22-2024 01-22-2024 Episodic Syncope (13 sources) Near syncope; Translations: [Syncope and collapse] Onset: 05-15-2024 05-15-2024 Episodic Unclassified (1 source) Insulin resistance, unspecified; Translations: [Insulin resistance, unspecified] Onset: 05-15-2024 Results Test Name Value Interpretation Reference Range Facility THYROIDon 07-24-2024 US THYROID EXAM: US THYROID HISTORY: Samson's thyroiditis. COMPARISON: None available. TECHNIQUE: Ultrasound examination of the thyroid and adjacent soft tissues was performed. FINDINGS: The right lobe of the thyroid measures 3.7 x 1.1 x 1.4 cm and demonstrates a normal, homogeneous echotexture. There is normal internal vascularity. The left lobe of the thyroid measures 3.8 x 1.4 x 1.3 cm and demonstrates a normal, homogeneous echotexture. There is normal internal vascularity. The isthmus measures 0.3 cm. IMPRESSION: 1. Unremarkable thyroid gland. No nodules. Interpreted by: Electronically signed by SAYRA ALLEN II, MD, PHD at 25-Jul-2024 06:17:16 AM [facility] [email or web address] Normal Not Available TRANSTHORACIC ECHO (TTE) [facility] 07-23-2024 TRANSTHORACIC ECHO (TTE) COMPLETE [facility] [address], [address], [place] [address] TRANSTHORACIC ECHOCARDIOGRAM REPORT Patient Name: REBECCA WHITE Reading Physician: [id number] Fran Velazquez MD, [facility] Study Date: 07/23/2024 Ordering Provider: [id number] FRAN VELAZQUEZ MRN/PID: [id number] Fellow: Nurse: Date of /Age: 1 1990 / 34 years Punch Hand: Muna Landeros RDCS, RVT Gender Assigned at F Additional Staff: : Height: 165.10 cm Admit Date: Weight: 126.10 kg Admission Status: BSA / BMI: 2.28 m2 / 46.26 Department Location: [facility] kg/m2 [facility] Blood Pressure: 128 /76 mmHg Study Type: TRANSTHORACIC ECHO (TTE) COMPLETE Diagnosis/ICD: Shortness of breath-R06.02; Dizziness and giddiness-R42 Indication: Tachycardia, Palpitations, Pre-Syncope, Dizziness, Morbid Obesity CPT Codes: Echo Complete w Full [id number] Study Detail: The following Echo studies were performed: 2D, M-Mode, Doppler and color flow. Image quality for this study is good. PHYSICIAN INTERPRETATION: Left Ventricle: Left ventricular ejection fraction is normal by visual estimate at 60%. There are no regional wall motion abnormalities. The left ventricular cavity size is normal. There is normal septal and mildly increased posterior left ventricular wall thickness. There is no evidence of left ventricular hypertrophy. There is left ventricular concentric remodeling. Spectral Doppler shows a normal pattern of left ventricular diastolic filling. There is no dynamic left ventricular outflow tract obstruction. Left Atrium: The left atrial size is normal. Right Ventricle: The right ventricle is normal in size. There is normal right ventricular global systolic function. Right Atrium: The right atrial size is normal. Aortic Valve: The aortic valve is trileaflet. The aortic valve area by VTI is 4.06 cm??? with a peak velocity of 1.26 m/s. The peak and mean gradients are 6 mmHg and 4 mmHg, respectively, with a dimensionless index of 1.06. There is no evidence of aortic valve regurgitation. Mitral Valve: The mitral valve is normal in structure. The doppler estimated peak and mean diastolic gradients are 5 mmHg and 2 mmHg, respectively. There is trace mitral valve regurgitation. The E Vmax is 0.86 m/s. Tricuspid Valve: The tricuspid valve is structurally normal. There is trace to mild tricuspid regurgitation. The Doppler estimated right ventricular systolic pressure (RVSP) is within normal limits at 25 mmHg. Pulmonic Valve: The pulmonic valve is structurally normal. There is no indication of pulmonic valve regurgitation. Pericardium: No pericardial effusion noted. Aorta: The aortic root is normal. Additional Comments: Normal chamber sizes. No significant valvular heart disease. No comparison study available. CONCLUSIONS: 1. Left ventricular ejection fraction is normal by visual estimate at 60%. 2. There is no evidence of left ventricular hypertrophy. 3. Normal chamber sizes. 4. No significant valvular heart disease. 5. Normal right ventricular global systolic function. 6. RVSP is within normal limits at 25 mmHg. 7. No comparison study available. QUANTITATIVE DATA SUMMARY: 2D MEASUREMENTS: Normal Ranges: Ao Root s: 2.70 cm LAs: 3.82 cm (2.7-4.0cm) RVIDd: 3.10 cm (0.9-3.6cm) IVSd: 0.89 cm (0.6-1.1cm) LVPWd: 1.07 cm (0.6-1.1cm) LVIDd: 5.04 cm (3.9-5.9cm) LVIDs: 3.31 cm LV Mass Index: 78.6 g/m2 LVEDV Index: 52.08 ml/m2 LV % FS 34.3 % LEFT ATRIUM: Normal Ranges: LA Vol A4C: 90.7 ml (22+/-6mL/m2) LA Vol A2C: 40.5 ml LA Vol BP: 62.5 ml LA Vol Index A4C: 39.9ml/m2 LA Vol Index A2C: 17.8 ml/m2 LA Vol Index BP: 27.4 ml/m2 LA Vol A4C: 76.5 ml LA Vol A2C: 38.2 ml LA Vol Index BSA: 25.2 ml/m2 LV SYSTOLIC FUNCTION: Normal Ranges: EF-A4C View: 50 % (>=55%) EF-A2C View: 63 % EF-Biplane: 56 % EF-Visual: 60 % LV EF Reported: 60 % LV DIASTOLIC FUNCTION: Normal Ranges: MV Peak E: 0.86 m/s (0.7-1.2 m/s) MV Peak A: 0.70 m/s (0.42-0.7 m/s) E/A Ratio: 1.24 (1.0-2.2) MV e' 0.111 m/s (>8.0) MV lateral e' 0.13 m/s MV medial e' 0.10 m/s E/e' Ratio: 7.79 (<8.0) MITRAL VALVE: Normal Ranges: MV Vmax: 1.07 m/s (<=1.3m/s) MV peak P.6 mmHg (<5mmHg) MV mean P.2 mmHg (<48mmHg) MV VTI: 26.13 cm (10-13cm) MV DT: 199 msec (150-240msec) AORTIC VALVE: Normal Ranges: AoV Vmax: 1.26 m/s (<=1.7m/s) AoV Peak P.4 mmHg (<20mmHg) AoV Mean P.6 mmHg (1.7-11.5mmHg) LVOT Max Guilherme: 1.25 m/s (<=1.1m/s) AoV VTI: 23.23 cm (18-25cm) LVOT VTI: 24.74 cm LVOT Diameter: 2.20 cm (1.8-2.4cm) AoV Area, VTI: 4.06 cm2 (2.5-5.5cm2) AoV Area,Vmax: 3.79 cm2 (2.5-4.5cm2) AoV Dimensionless Index: 1.06 RIGHT VENTRICLE: RV Basal 4.60 cm RV Mid 3.80 cm RV Major 7.1 cm RV s' 0.14 m/s TRICUSPID VALVE/RVSP: Normal Ranges: Peak TR Velocity: 2.32 m/s Est. RA Pressure: 3 mmHg RV Syst Pressure: 25 mmHg (< 30mmHg) IVC Roxanne (more content not included)... [facility] CA tilt table teston 025 CA tilt table test [facility] [address] [place] [id number] Cardiology Report Signed Patient: Rebecca White MR#: [id number] 40 : 1990 Acct:[id number] Age/Sex: 34 / F ADM Date: 06/17/24 Loc: Room: Type: [facility] Attending Dr: Fran Velazquez MD Copies to: MD Fran Jorge Ordering Provider: Fran Velazquez Date of Service: 06/17/24 CA/CA tilt table test: syncope/near syncope REASON FOR PROCEDURE: Episodes of dizziness and lightheadedness. PROCEDURE: The patient underwent standard head-up tilt table test. The patient received total of 250 mL of normal saline. Continuous blood pressure, O2 sat and heart monitoring was established. The patient was tilted to the upright position and was monitored for 25 minutes, during which she demonstrated appropriate and physiologic response to tilt maneuver. The patient then was given sublingual nitroglycerin and was monitored for additional 15 minutes. No symptoms were recreated and the patient continued to demonstrate normal physiologic response to nitroglycerin administration. CONCLUSION: 1. Negative tilt table test. 2. Physiologic hemodynamic response to tilt maneuver and nitroglycerin administration. 3. No symptoms were recreated. Transcribed By: DIALLO 06/17/24 1735 Dictated By: Sushant Busch MD 06/17/24 1022 Signed By: 06/18/24 0836 Normal [facility] STRESS TEST ONLYon STRESS TEST ONLY [address], [place] [address] Exercise Stress Test Patient Name: REBECCA WHITE Ordering Provider: [id number] FRAN VELAZQUEZ Study Date: 05/28/2024 Reading Physician: [id number] Velazquez MD, [facility] MRN/PID: C Supervising Physician: [id number] Sushant Busch MD Fellow: Date of /Age: 1 1990 / 34 years Fellow: Gender: F Nurse: Richardson Hebert RN Admission Status: Punch Hand: ASHWINI Height: 165.10 cm Technologist: Weight: 126.10 kg Additional Staff: BSA: 2.28 m2 BMI: 46.26 kg/m2 Patient Location: Study Type: STRESS TEST ONLY Diagnosis/ICD: Shortness of breath-R06.02; Palpitations-R00.2; Syncope and collapse-R55 Indication: Syncope CPT Codes: Stress Test Interpretation-86766; Stress Test Supervision-[id number] Falls Risk: Low: Patient has low risk for sustaining a fall; environmental safety interventions in place. Study Details: Correct procedure and correct patient verified verbally. Patient History: Allergies: None. Patient Performance: The patient exercised to stage II on a Asael protocol for 6 minutes and 00 seconds, achieving 7.00 METS. The peak heart rate achieved was 166 bpm, which was 90 % of the age predicted target heart rate of 184 bpm. The resting blood pressure was 128/86 mmHg with a heart rate of 92 bpm. The standing blood pressure was 132/78 mmHg with a heart rate of 96 bpm. The patient's functional capacity was below average. The patient developed dyspnea during the stress exam. The symptoms resolved with rest. The blood pressure response was normal. The test was terminated due to: dyspnea. Patient has met the discharge criteria and is discharged to home. Double Product (HR x BP): 279. Baseline ECG: Resting ECG showed normal sinus rhythm with nonspecific ST-T wave changes and PRWP. Stress ECG: Stress ECG showed sinus tachycardia. No ST changes. Stress Stage Data: + +---+-- ----+-------+ HR Sys BP Daniel BP + +---+-- ----+-------+ Baseline Resting 92 128 86 + +---+-- ----+-------+ Baseline Standing 96 132 78 + +---+-- ----+-------+ Stage I 148 138 76 + +---+-- ----+-------+ Stage II 164 168 86 + +---+-- ----+-------+ Recovery ECG: Recovery ECG showed normal sinus rhythm, with no abnormal findings. The heart rate recovery was normal. + +---+------+ -------+ HR Sys BP Daniel BP + +---+------+ -------+ Recovery I 164 170 82 + +---+------+ -------+ Recovery II 155 168 78 + +---+------+ -------+ Recovery III 120 126 72 + +---+------+ -------+ Recovery IV 107 128 86 + +---+------+ -------+ Additional Findings: No comparison study available. Summary: 1. Normal ECG Stress Test. 2. Adequate level of stress achieved. 3. No ECG changes from baseline. 4. No electrocardiographic or clinical evidence for ischemia at maximal workload. 5. No comparison study available. [id number] Fran Velazquez MD, [facility] Electronically signed on 06/11/2024 at 12:11:24 AM Final Normal [facility] Basophils Auto (Bld) [#/Vol] on 05-17-2024 Basophils (Bld) [#/Vol] Automated basophil count 0.0-0.1 [facility] Basophils (Bld) [#/Vol] 0.1 10 3/uL 0.0-0.1 [facility] Basophils/100 WBC Auto (Bld) on 05-17-2024 Basophils/100 WBC (Bld) Automated basophil % 0. 2-2.0 [facility] Basophils/100 WBC (Bld) 0.9 % 0.2-2.0 [facility] Cholesterol in LDL Calc [Mas s/Vol]on 05-17-2024 Cholesterol in LDL [Mass/Vol] Cholesterol in LDL [Mass/volume] in Serum or Plasma by calculation [facility] Comment on above: <100 mg/dl [id number] 0-129 mg/dl NEAR OR ABOVE [id number] mg/dl BORDERLINE [id number] mg/dl HIGH>190 mg/dl VERY HIGH Cholesterol in LDL [Mass/Vol] 122.0 mg/dL [facility] Comment on above: <100 mg/dl [id number] 0-129 mg/dl NEAR OR ABOVE [id number] mg/dl BORDERLINE [id number] mg/dl HIGH>190 mg/dl VERY HIGH Cholesterol in VLDL Calc [Ma ss/Vol]on 05-17-2024 Cholesterol in VLDL [Mass/Vol] Cholesterol in VLDL [Mass/volume] in Serum or Plasma by calculation [facility] Cholesterol in VLDL [Mass/Vol] 39.8 mg/dL [facility] Eosinophils/100 WBC Auto (Bl d)on 05-17-2024 Eosinophils/100 WBC (Bld) Automated eosinophil % 0.9-7.0 [facility] Eosinophils/100 WBC (Bld) 3.3 % 0.9-7.0 [facility] Erythrocyte distribution wid th Auto (RBC) [Ratio]on 05-17-2024 Erythrocyte distribution width (RBC) [Ratio] Erythrocyte distribution width [Ratio] by Automated count 11.0-15.0 [facility] Erythrocyte distribution width (RBC) [Ratio] 14.6 % 11.0-15.0 [facility] Estimated glomerular filtrat ion rate (GFR) non- Americanon 05-17-2024 GFR/1.73 sq M.predicted among non-blacks MDRD (S/P/Bld) [Vol rate/Area] Estimated glomerular filtration rate (GFR) non- >=60 mL/min/1.7 3m 2 [facility] GFR/1.73 sq M.predicted among non-blacks MDRD (S/P/Bld) [Vol rate/Area] mL/min/{1.73_m2} >=60 mL/min/1.7 3m 2 [facility] Globulin Calc (S) [Mass/Vol] on 05-17-2024 Globulin (S) [Mass/Vol] Serum globulin measurement by calculation (mass/volume) [facility] Globulin (S) [Mass/Vol] 3.2 g/dL [facility] Hematocrit Auto (Bld) [Volum e fraction]on 05-17-2024 Hematocrit (Bld) [Volume fraction] Hematocrit [Volume Fraction] of Blood by Automated count 36.0-48.0 [facility] Hematocrit (Bld) [Volume fraction] 42.2 % 36.0-48.0 [facility] Hemoglobin [Mass/volume] in Bloodon 05-17-2024 Hemoglobin (Bld) [Mass/Vol] Hemoglobin [Mass/volume] in Blood 12.0-16.0 [facility] Hemoglobin (Bld) [Mass/Vol] 13.8 g/dL 12.0-16.0 [facility] Laboratory - Chemistry and C hemistry - challengeon 05-17-2024 Albumin [Mass/Vol] 3.4 g/dL 3.4-5.[address] [facility] ALP [Catalytic activity/Vol] 69 U/L 46-116 [facility] ALT [Catalytic activity/Vol] 45 U/L 14-59 [facility] AST [Catalytic activity/Vol] 37 U/L 15-37 [facility] Bilirubin [Mass/Vol] 0.5 mg/dL 0.2-1.0 [facility] Calcium [Mass/Vol] 8.9 mg/dL 8.5-10.[address] [facility] Chloride [Moles/Vol] 103 mmol/L 98-107 [facility] Cholesterol [Mass/Vol] 207 mg/dL High <=200 [facility] Cholesterol in HDL [Mass/Vol] 46 mg/dL 40-60 [facility] Comment on above: > or =60 mg/dl - LOW CARDIOVASCULAR RISK<40 mg/dl - HIGH CARDIOVASCULAR RISK CO2 [Moles/Vol] 25.8 mmol/L 21.0-32.0 [facility] Creatinine [Mass/Vol] 0.89 mg/dL 0.55-1.02 [facility] Free T4 [Mass/Vol] 0.98 ng/dL 0.76-1.[address] [facility] GFR/1.73 sq M.predicted MDRD (S/P/Bld) [Vol rate/Area] mL/min/{1.73_m2} >=60 mL/min/1.7 3m 2 [facility] Glucose [Mass/Vol] 100 mg/dL 74-[address] [facility] Potassium [Moles/Vol] 3.9 mmol/L 3.5-5.1 [facility] Protein [Mass/Vol] 6.6 g/dL 6.4-8.[address] [facility] Sodium [Moles/Vol] 139 mmol/L 136-[address] [facility] Triglyceride [Mass/Vol] 199 mg/dL High <=150 [facility] TSH Qn 4.116 m[IU]/L High 0.358-3.74 0 [facility] Urea nitrogen [Mass/Vol] 10.0 mg/dL 7.0-18.0 [facility] Urea nitrogen/Creatinine [Mass ratio] 11.2 mg/mg [facility] Laboratory - Hematology and Cell countson 05-17-2024 Immature granulocytes/100 WBC (Bld) 0.4 % 0.0-0.5 [facility] Leukocytes [#/volume] correc benny for nucleated erythrocytes in Blood by Automated counon 05-17-2024 WBC corrected for nucl RBC Auto (Bld) [#/Vol] Leukocytes [#/volume] corrected for nucleated erythrocytes in Blood by Automated coun .0-11.0 [facility] WBC corrected for nucl RBC Auto (Bld) [#/Vol] 7.9 10 3/uL 4.0-11.0 [facility] Lymphocytes Auto (Bld) [#/Vo l]on 05-17-2024 Lymphocytes (Bld) [#/Vol] Lymphocytes [#/volume] in Blood by Automated count 1.2-3.8 [facility] Lymphocytes (Bld) [#/Vol] 2.8 10 3/uL 1.2-3.8 [facility] Lymphocytes/100 WBC Auto (Bl d)on 05-17-2024 Lymphocytes/100 WBC (Bld) Lymphocytes/100 leukocytes in Blood by Automated count 20.5-60.0 [facility] Lymphocytes/100 WBC (Bld) 35.1 % 20.5-60.0 [facility] MCH Auto (RBC) [Entitic mass ]on 05-17-2024 MCH (RBC) [Entitic mass] MCH [Entitic mass] by Automated count 26.7-34.0 [facility] MCH (RBC) [Entitic mass] 28.6 pg 26.7-34.0 [facility] MCHC Auto (RBC) [Mass/Vol]on 05-17-2024 MCHC (RBC) [Mass/Vol] MCHC [Mass/volume] by Automated count 29.9-35.2 [facility] MCHC (RBC) [Mass/Vol] 32.7 g/dL 29.9-35.2 [facility] MCV Auto (RBC) [Entitic vol] on 05-17-2024 MCV (RBC) [Entitic vol] MCV [Entitic vol ume] by Automated count 81.0-99.0 [facility] MCV (RBC) [Entitic vol] 87.6 fL 81.0-99.0 [facility] Monocytes Auto (Bld) [#/Vol] on 05-17-2024 Monocytes (Bld) [#/Vol] Automated blood monocyte count 0.3-0.8 [facility] Monocytes (Bld) [#/Vol] 0.6 10 3/uL 0.3-0.8 [facility] Monocytes/100 WBC Auto (Bld) on 05-17-2024 Monocytes/100 WBC (Bld) Automated monocyte % 1. 7-12.0 [facility] Monocytes/100 WBC (Bld) 7.6 % 1.7-12.0 [facility] Neutrophils Auto (Bld) [#/Vo l]on 05-17-2024 Neutrophils (Bld) [#/Vol] Neutrophils [#/volume] in Blood by Automated count 1.4-6.5 [facility] Neutrophils (Bld) [#/Vol] 4.2 10 3/uL 1.4-6.5 [facility] Neutrophils/100 WBC Auto (Bl d)on 05-17-2024 Neutrophils/100 WBC (Bld) Automated neutrophil % 43.0-75.0 [facility] Neutrophils/100 WBC (Bld) 52.7 % 43.0-75.0 [facility] No Panel Informationon 05-17 Eosinophils # (Auto) 0.3 10 3/uL 0.0-0.7 [facility] Immature Granulocyte # (Auto) 0.03 10 3/uL 0.00-0.03 [facility] Platelet mean volume Auto (B ld) [Entitic vol]on 05-17-2024 Platelet mean volume (Bld) [Entitic vol] Platelet mean volume [Entitic volume] in Blood by Automated count 9.5-13.5 [facility] Platelet mean volume (Bld) [Entitic vol] 9.7 fL 9.5-13.5 [facility] Platelets Auto (Bld) [#/Vol] on 05-17-2024 Platelets (Bld) [#/Vol] Platelets [#/vol ume] in Blood by Automated count 150-450 [facility] Platelets (Bld) [#/Vol] 332 10 3/uL 150-450 [facility] RBC Auto (Bld) [#/Vol]on RBC (Bld) [#/Vol] Erythrocytes [#/volu me] in Blood by Automated count 4.20-5.40 [facility] RBC (Bld) [#/Vol] 4.82 10 6/uL 4.20-5.40 [facility] Serum or plasma albumin/glob ulin mass ratioon 05-17-2024 Albumin/Globulin [Mass ratio] Serum or plasma albumin/globulin mass ratio [facility] Albumin/Globulin [Mass ratio] 1.1 {ratio} [facility] Serum or plasma anion gap de terminationon 05-17-2024 Anion gap [Moles/Vol] Serum or plasma an ion gap determination [facility] Anion gap [Moles/Vol] 14.1 mmol/L [facility] Serum or plasma thyroglobuli n antibody assay (units/volume)on 05-17-2024 Thyroglobulin Ab Qn Serum or plasma thyroglobulin antibody assay (units/volume) Abnormal 0.0-0.9 [facility] Comment on above: Thyroglobulin Antibo dy measured by InterStelNetodologyIt should be noted that the presence of thyroglobulinantibodies may not be pathogenic nor diagnostic, especiallyat very low levels. The assay show host/hostess has found thatfour percent of individuals without evidence of thyroiddisease or autoimmunity will have positive TgAb levels upto 4 IU/mL.Performed at: [facility] [place], [place] [id number] Director: Marcello Velazquez PhD, Phone: [phone] Thyroglobulin Ab Qn 1.4 [IU]/mL Abnormal 0.0-0.9 [facility] Comment on above: Thyroglobulin Antibo dy measured by InterStelNetodologyIt should be noted that the presence of thyroglobulinantibodies may not be pathogenic nor diagnostic, especiallyat very low levels. The assay show host/hostess has found thatfour percent of individuals without evidence of thyroiddisease or autoimmunity will have positive TgAb levels upto 4 IU/mL.Performed at: [facility] [place], [place] [id number] Director: Marcello Velazquez PhD, Phone: [phone] Serum or plasma thyroperoxid ase antibody assay (units/volume)on 05-17-2024 TPO Ab Qn Serum or plasma thyroperoxidase antibody assay (units/volume) 0-34 [facility] TPO Ab Qn 19 [IU]/mL 0-34 [facility] Serum or plasma total choles terol/high density lipoprotein (HDL) cholesterol mass [place] 05-17-2024 Cholesterol.total/Brittney sterol in HDL [Mass ratio] Serum or plasma total cholesterol/high density lipoprotein (HDL) cholesterol mass [facility] Comment on above: 3.3 - 4.4 LOW RISK4. 4 - 7.1 AVERAGE RISK7.1 - 11.0 MODERATE RISK>11.0 HIGH RISK Cholesterol.total/Brittney sterol in HDL [Mass ratio] 4.5 {ratio} [facility] Comment on above: 3.3 - 4.4 LOW RISK4. 4 - 7.1 AVERAGE RISK7.1 - 11.0 MODERATE RISK>11.0 HIGH RISK ECG 12 Leadon 05-16-2024 Sinus rhythm, rate 84. CP [facility] Work Phone: Influenza virus B Ag [Presen ce] in Upper respiratory specimen by Rapid immunoassayon 05-01-2024 FLUBV Ag IA.rapid Ql (Nph) Influenza virus B Ag [Presence] in Upper respiratory specimen by Rapid immunoassay [facility] FLUBV Ag IA.rapid Ql (Nph) Negative [facility] No Panel Informationon 05-01 Influenza Type A (Rapid) Negative [facility] POC SARS CoV-2 Antigen Negative [facility] IGP,APTIMA HPV,AGE GDLNon AGE GDLN ACOG TESTING Note . [facility] Comment on above: TESTS RESULT FLAG UN ITS REF RANGE LAB Clinician Provided Cytology Information Source.............Cervix;Endocervix No. of containers..01 ThinPrep Vial Age Algo ACOG Mary... 30-65 01 FLAG LEGEND: L-Low Normal,H-High Normal,LL-Alert Low,HH-Alert High <-Panic Low,>-Panic High,A-Abnormal,AA-Critical Abnormal Performed at: 01 [address] [phone] Anaid Hercules MD, HPV APTIMA Negative Negative [facility] Comment on above: This nucleic acid am plification test detects fourteen high- risk HPV types (16,18,31,33,35,39,45,51,52,56,58,59,66,68) without differentiation. Performed at: = - [address], [place] [id number] Divinity Teacher: Anaid Hercules MD, Phone: [phone] Performed at: [address], [place] [id number] Divinity Teacher: Anaid Hercules MD, Phone: [phone] IGP, APTIMA HPV, RFX 16/18,45 Note . [facility] Comment on above: TESTS RESULT FLAG UN ITS REF RANGE LAB DIAGNOSIS: 02 NEGATIVE FOR INTRAEPITHELIAL LESION OR MALIGNANCY. Specimen adequacy: 02 Satisfactory for evaluation. Endocervical and/or squamous metaplastic cells (endocervical component) are present. Performed by: 02 Asael Carlos, Order Dispatcher (ASCP) . 02 Note: Note 02 The [...] <-Panic Low,>-Panic High,A-Abnormal,AA-Critical Abnormal Performed at: [address] [id number] Anaid Hercules MD, BRUSH-SPATULA CERVIX ENDOCERVIX CLINISY[facility] ALL BASIC METABOLIC PANELon 01-22-2024 Anion gap [Moles/Vol] 13.7 mmol/L [facility] Calcium [Mass/Vol] 8.8 mg/dL 8.5 - 10. 1 mg/dL [facility] Chloride [Moles/Vol] 105 mmol/L 98 - 10 7 mmol/L [facility] CO2 [Moles/Vol] 27.2 mmol/L 21.0 - 32.0 mmol/L [facility] Creatinine [Mass/Vol] 0.85 mg/dL 0.55 - 1.02 mg/dL [facility] GFR/1.73 sq M.predicted CKD-EPI (S/P/Bld) [Vol rate/Area] >60 >=60 mL/min/1.7 3m 2 [facility] Glucose [Mass/Vol] 81 mg/dL 74 - 106 mg/dL [facility] Potassium [Moles/Vol] 3.9 mmol/L 3.5 - 5.1 mmol/L [facility] Sodium [Moles/Vol] 142 mmol/L 136 - 145 mmol/L [facility] TBH EGFR-NON AF MAURITANIAN >60 >=60 mL/min/1.7 3m 2 [facility] Urea nitrogen [Mass/Vol] 9 mg/dL 7.0 - 18.0 mg/dL [facility] Urea nitrogen/Creatinine [Mass ratio] 10.6 mg/mg [facility]IS[facility]NC [facility] MR venography head wo ruth anngema 11-09-2023 MR venography head wo [facility] [place] [address] MRI Report Signed Patient: Rebecca White MR#: [id number] 38 : 1990 Acct:[id number] Age/Sex: 33 / F ADM Date: 11/09/23 Loc: MR Room: Type: [facility] Attending Dr: Naya Butler WORKERS' COMPENSATION MEDIATOR-GLASSWARE FINISHER-C Copies to: Naya E RAKEL Butler-GLASSWARE FINISHER-C Ordering Provider: FRANCK Masterson Date of Service: [...] Manjeet Sargent M.D.11/09/2023 9:34 AM Dictation Location: [place] [address] Transcribed By: [facility] 11/09/23933 Dictated By: Manjeet Sargent II, MD 11/09/23917 Signed By: 11/09/23933 Normal [facility] CMP (CMP) (FOR REMOTE C USE)on 10-23-2023 Albumin [Mass/Vol] 3.1 g/dL Low 3.4 - 5.0 g/dL [facility] ALBUMIN GLOBULIN RATIO 0.8 NO [facility] ALP [Catalytic activity/Vol] 66 U/L 46 - 116 U/L [facility] ALT [Catalytic activity/Vol] 38 U/L 14 - 59 U/L [facility] Anion gap [Moles/Vol] 10.5 mmol/L NO [facility] AST [Catalytic activity/Vol] 25 U/L 15 - 37 U/L [facility] Bilirubin [Mass/Vol] 0.4 mg/dL 0.2 - 1 .0 mg/dL [facility] Calcium [Mass/Vol] 8.7 mg/dL 8.5 - 10. 1 mg/dL [facility] Chloride [Moles/Vol] 100 mmol/L 98 - 10 7 mmol/L [facility] CO2 [Moles/Vol] 30.3 mmol/L 21.0 - 32.0 mmol/L [facility] Creatinine [Mass/Vol] 0.76 mg/dL 0.55 - 1.02 mg/dL [facility] GFR/1.73 sq M.predicted CKD-EPI (S/P/Bld) [Vol rate/Area] >60 60 - PINF [facility] Globulin (S) [Mass/Vol] 4.1 g/dL N [facility] Glucose [Mass/Vol] 78 mg/dL 74 - 106 mg/dL [facility] Interpretation and review of laboratory results Abnormal [facility] Potassium [Moles/Vol] 3.8 mmol/L 3.5 - 5.1 mmol/L [facility] Protein [Mass/Vol] 7.2 g/dL 6.4 - 8.2 g/dL [facility] Sodium [Moles/Vol] 137 mmol/L 136 - 145 mmol/L [facility] TBH EGFR-NON AF MAURITANIAN >60 60 - PINF [facility] Urea nitrogen [Mass/Vol] 12.0 mg/dL 7.0 - 18.0 mg/dL [facility] Urea nitrogen/Creatinine [Mass ratio] 15.8 mg/mg [facility] CL[facility]ISY[facility] Aerobic Cultureon 09-25-2023 Aerobic Culture Comment Aerobic/anae robic No Growth 2 Days Comment Aerobic/anaerobic No Anaerobes Isolated 3 Days Comment Aerobic/anaerobic Gram Stain Result No Bacteria Seen No White Blood Cells Seen No Red Blood Cells Seen PERFORMED BY: [facility] [address] [place] [address] PATHOLOGIST PRACTICAL NURSING TEACHER KELLY WIGGINS M.D. Normal [facility] Comment on above: Performed By: #### C SF TP, CSF PCR PANEL, CSFCCDIFF #2, GS, CSF GLU, AERC ####[facility] [place] [address] [place] Aerobic cultureOrdered By: Ana Butler on 09-25-2023 Bacteria identified Aer cx Nom (Unsp spec) Aerobic culture [facility] Anaerobic cultureOrdered By: Naya Butler on 09-25-2023 Bacteria identified Anaer cx Nom (Unsp spec) Anaerobic culture [facility] CSF PCR Panelon 09-25-2023 CSF PCR Panel Comment Aerobic/anae robic Cytomegalovirus Not detected Cryptococcus neoformans or gattii [...] Varicella zoster virus Not detected PERFORMED BY: [place] [address] PATHOLOGIST PRACTICAL NURSING TEACHER KELLY WIGGINS M.D. Normal [facility] Comment on above: Performed By: #### C SF TP, CSF PCR PANEL, CSFCCDIFF #2, GS, CSF GLU, AERC #### [facility] [address] [place] [id number] [place] Cell Count Differential,CSFo n 09-25-2023 Appearance, CSF Clear Normal Clear [facility] Comment on above: Order Comment: Comme nt tube 1 Performed By: #### C SFCCDIFF #### [facility] [address] [place] [id number] [place] Color, CSF Colorless Normal Colorless [facility] Comment on above: Order Comment: Comme nt tube 1 Performed By: #### C SFCCDIFF #### [address] CSF Supernatant Color Colorless Normal Colorless [facility] Comment on above: Order Comment: Comme nt tube 1 Performed By: #### C SFCCDIFF #### [address] CSF Volume, Total 33.5 mL Normal [facility] Comment on above: Order Comment: Comme nt tube 1 Performed By: #### C SFCCDIFF #### [address] Lymphocytes, CSF 6 Normal [facility] Comment on above: Order Comment: Comme nt tube 1 Result Comment: The reference interval and other method performance specifications have not been established for this body fluid. The test result must be integrated into the clinical context for interpretation. Performed By: #### C SFCCDIFF #### [address] Monocytes, CSF 2 Normal [facility] Comment on above: Order Comment: Comme nt tube 1 Result Comment: The reference interval and other method performance specifications have not been established for this body fluid. The test result must be integrated into the clinical context for interpretation. Performed By: #### C SFCCDIFF #### [facility] [address] [place] [address] RBC, CSF 5 /uL Normal [facility] Comment on above: Order Comment: Comme nt tube 1 Result Comment: The reference interval and other method performance specifications have not been established for this body fluid. The test result must be integrated into the clinical context for interpretation. Performed By: #### C SFCCDIFF #### [address] TNC, CSF 1 /uL Normal 0-5 [facility] Comment on above: Order Comment: Comme nt tube 1 Performed By: #### C SFCCDIFF #### [address] Total Count, CSF 8 Normal [facility] Comment on above: Order Comment: Comme nt tube 1 Performed By: #### C SFCCDIFF #### [address] Tube Number Tested, CSF Tube Number: 1 Normal [facility] Comment on above: Order Comment: Comme nt tube 1 Result Comment: PERF ORMED BY: [place] [address] PATHOLOGIST PRACTICAL NURSING TEACHER KELLY WIGGINS M.D. Performed By: #### C SFCCDIFF #### [address] Cell Count Differential,CSF #2on 09-25-2023 Appearance, CSF Clear Normal Clear [facility] Comment on above: Performed By: #### C SF TP, CSF PCR PANEL, CSFCCDIFF #2, GS, CSF GLU, AERC ####[address] Color, CSF Colorless Normal Colorless [facility] Comment on above: Performed By: #### C SF TP, CSF PCR PANEL, CSFCCDIFF #2, GS, CSF GLU, AERC ####[address] CSF Supernatant Color Colorless Normal Colorless [facility] Comment on above: Performed By: #### C SF TP, CSF PCR PANEL, CSFCCDIFF #2, GS, CSF GLU, AERC ####[address] CSF Volume, Total 33.5 mL Normal [facility] Comment on above: Performed By: #### C SF TP, CSF PCR PANEL, CSFCCDIFF #2, GS, CSF GLU, AERC ####[address] Lymphocytes, CSF 3 Normal [facility] Comment on above: Result Comment: The reference interval and other method performance specifications have not been established for this body fluid. The test result must be integrated into the clinical context for interpretation. Performed By: #### C SF TP, CSF PCR PANEL, CSFCCDIFF #2, GS, CSF GLU, AERC ####[address] RBC, CSF 1 /uL Normal [facility] Comment on above: Result Comment: The reference interval and other method performance specifications have not been established for this body fluid. The test result must be integrated into the clinical context for interpretation. Performed By: #### C SF TP, CSF PCR PANEL, CSFCCDIFF #2, GS, CSF GLU, AERC ####[address] TNC, CSF 2 /uL Normal 0-5 [facility] Comment on above: Performed By: #### C SF TP, CSF PCR PANEL, CSFCCDIFF #2, GS, CSF GLU, AERC ####[address] Total Count, CSF 3 Normal [facility] Comment on above: Performed By: #### C SF TP, CSF PCR PANEL, CSFCCDIFF #2, GS, CSF GLU, AERC ####[address] Tube Number Tested, CSF Tube Number: 4 Normal [facility] Comment on above: Result Comment: PERF ORMED BY: [facility] [address] [place] [address] PATHOLOGIST PRACTICAL NURSING TEACHER KELLY WIGGINS M.D. Performed By: #### C SF TP, CSF PCR PANEL, CSFCCDIFF #2, GS, CSF GLU, AERC ####[address] Cerebrospinal fluid appearan ce descriptionOrdered By: Naya Butler on 09-25-2023 Appearance (CSF) Clear Clear [facility] Cerebrospinal fluid color id entificationOrdered By: Naya Butler on 09-25-2023 Color (CSF) Color CSF Colorless [facility] Cerebrospinal fluid post-lul trifugation appearance determinationOrdered By: Naya Butler on 09-25-2023 Appearance (Spun CSF) Colorless Colorless [facility] Appearance (Spun CSF) Cerebrospinal flui d post-centrifugation appearance determination Colorless [facility] Cerebrospinal fluid sample t ube volume measurementOrdered By: Naya Butler on 09-25-2023 Specimen volume (CSF) 33.5 mL [facility] Specimen volume (CSF) Cerebrospinal flui d sample tube volume measurement [facility] Color CSFOrdered By: Naya pink on 09-25-2023 Color (CSF) Colorless Colorless [facility] Determination of appearance of cerebrospinal fluidOrdered By: Naya Butler on 09-25-2023 Appearance (CSF) Cerebrospinal fluid appearance description Clear [facility] Eosinophil count CSFOrdered By: Naya Butler on 09-25-2023 CSF Eosinophils N/A [facility] Glucose [Mass/volume] in Cer ebral spinal fluidOrdered By: Naya Butler on 09-25-2023 Glucose (CSF) [Mass/Vol] 60 mg/dL 40-70 [facility] Glucose (CSF) [Mass/Vol] Glucose [Mass/volume] in Cerebral spinal fluid 40-70 [facility] Glucose, CSF #2on 09-25-2023 Glucose, CSF #2 60 mg/dL Normal 40-70 [facility] Comment on above: Performed By: #### C SF GLU #2, CSF TP #2 #### [facility] [address] [place] [address] [place] Glucose, Spinal Fluidon 09-06 Glucose, Spinal Fluid 62 mg/dL Normal 40-70 [facility] Comment on above: Performed By: #### C SF TP, CSF PCR PANEL, CSFCCDIFF #2, GS, CSF GLU, AERC #### [facility] [address] [place] [address] [place] Gram Stainon 09-25-2023 Microscopic observation Gram stain Nom (Unsp spec) Comment Aerobic/anaerobic Gram Stain Result No Bacteria Seen No White Blood Cells Seen No Red Blood Cells Seen PERFORMED BY: [place] [address] PATHOLOGIST PRACTICAL NURSING TEACHER KELLY WIGGINS M.D. Normal [facility] Comment on above: Performed By: #### C SF TP, CSF PCR PANEL, CSFCCDIFF #2, GS, CSF GLU, AERC #### [place] [id number] [facility] Gram stain for investigation of transfusion reactionOrdered By: Naya Butler on 09-25-2023 Microscopic observation Gram stain Nom (Unsp spec) No Anaerobes Isolated 2 Days [facility] Microscopic observation Gram stain Nom (Unsp spec) No Anaerobes Isolated 3 Days [facility] Gram stain microscopyOrdered By: Naya Butler on 09-25-2023 Microscopic observation Gram stain Nom (Unsp spec) Gram stain microscopy [facility] IR guided lumbar puncture LP on 09-25-2023 IR guided lumbar puncture LP [facility] [place] [address] [place] [address] Interventional Radiology Rpt Signed Patient: Rebecca White MR#: [id number] 38 : 1990 Acct:[id number] Age/Sex: 33 / F ADM Date: 09/25/23 Loc: XD Room: Type: [facility] Attending Dr: Naya JUÁREZ Copies to: FRANCK [...] Manjeet Sargent M.D.09/25/2023 10:34 AM Dictation Location: [place] [address] Transcribed By: [facility] 09/25/231033 Dictated By: Manjeet Sargent II, MD 09/25/231030 Signed By: 09/25/231033 Normal [facility] 09-25-2023 L Specimen: [id number] Received: 09/25/23 Status: LORENZO Hurd Num: [id number] Spec Type: Cytology Subm Dr: Manjeet Sargent II, MD Tissues: A CSF (CSF) Procedures: Cyto Prepstain, DIFF QWIK, PAPSTN Age/ Patient Sex Location Account Attending Physician Rebecca White 33/F XD [id number] Naya Butler, WORKERS' COMPENSATION MEDIATOR-GLASSWARE FINISHER-C SPEC NUM: [id number] RECD: 09/25/23 STATUS: LORENZO HURD NUM: [id number] ISABELLA: 09/25/23- SUBM DR: Manjeet Sargent II, MD ENTERED: 09/25/[address] [facility] [address]: Alyssa Butterfield MD SPEC TYPE: Cytology DEPT: CNG ENTERED BY: [id number] RECV BY: [id number] ORDERED: Cyto Prepstain, DIFF QWIK, PAPSTN ORDERED: [...] [id number] Received: 09/25/23 Status: LORENZO Hurd Num: [id number] Spec Type: Cytology Subm Dr: Manjeet Sargent II, MD Tissues: A CSF (CSF) Procedures: Cyto Prepstain, DIFF QWIK, PAPSTN Patient: Rebecca White Vicki [id number] (Continued) Specimen: [id number] Received: 09/25/23 (Continued) Signed (signature on file) Ashley Coulter MD 09/27/23 1158 Specimen: [id number] Received: 09/25/23 Status: LORENZO Hurd Num: [id number] Spec Type: Cytology Subm Dr: Manjeet Sargent II, MD Tissues: A CSF (CSF) Procedures: Cyto Prepstain, DIFF QWIK, PAPSTN Patient: Rebecca White Vicki [id number] (Continued) Specimen: [id number] Received: 09/25/23 (Continued) CPT Codes 20008 Specimen: [id number] Received: 09/25/23 Status: LORENZO Hurd Num: [id number] Spec Type: Cytology Subm Dr: Manjeet Sargent II, MD Tissues: A CSF (CSF) Procedures: Cyto Prepstain, DIFF QWIK, PAPSTN Patient: Rebecca White Vicki [id number] (Continued) Signed (signature on file) Chin-Jimmy Coulter MD 09/27/23 1158 Normal [facility] Lymphocyte count CSFOrdered By: Naya Butler on 09-25-2023 CSF Lymphocytes 3 [facility] Comment on above: The reference interv al and other method performance specifications have not been established for this body fluid. The test result must be integrated into the clinical context for interpretation. Manual cerebrospinal fluid e rythrocytes count (number/volume)Ordered By: Naya Butler on 09-25-2023 RBC Manual cnt (CSF) [#/Vol] 1 /uL [facility] Comment on above: The reference interv al and other method performance specifications have not been established for this body fluid. The test result must be integrated into the clinical context for interpretation. RBC Manual cnt (CSF) [#/Vol] Manual cerebrospinal fluid erythrocytes count (number/volume) [facility] Comment on above: The reference interv [...] - Cerebral spinal fluid by NIMA wi [facility] Meningitis+Encephalitis pathogens DNA and RNA panel NIMA+non-probe (CSF) [facility] Monocyte count CSFOrdered By : Naya Butler on 09-25-2023 CSF Monocytes N/A [facility] Neutrophil count CSFOrdered By: Naya Butler on 09-25-2023 CSF Neutrophils N/A [facility] No Panel InformationOrdered By: Naya Butler on 09-25-2023 CSF Total Cells Counted 3 [facility] CSF Tube Number Tube number: 4 [facility] Nucleated cells [#/volume] i n Cerebral spinal fluid by Manual countOrdered By: Naya Butler on 09-25-2023 Nucleated cells Manual cnt (CSF) [#/Vol] 0.002 10*3/uL 0-5 [facility] Nucleated cells Manual cnt (CSF) [#/Vol] Nucleated cells [#/volume] in Cerebral spinal fluid by Manual count 0-5 [facility] Protein [Mass/volume] in Cer ebral spinal fluidOrdered By: Naya Butler on 09-25-2023 Protein (CSF) [Mass/Vol] 23 mg/dL [facility] Protein (CSF) [Mass/Vol] Protein [Mass/volume] in Cerebral spinal fluid [facility] Total Protein, CSF #2on 09-06 Total Protein, CSF #2 23 mg/dL Normal [facility] Comment on above: Result Comment: PERF ORMED BY: [address] [place] [address] PATHOLOGIST PRACTICAL NURSING TEACHER KELLY WIGGINS M.D. Performed By: #### C SF GLU #2, CSF TP #2 #### [place] [address] [place] Total Protein, Spinal Fluido n 09-25-2023 Total Protein, Spinal Fluid 26 mg/dL Normal 15 [facility] Comment on above: Result Comment: PERF ORMED BY: [address] [place] [address] PATHOLOGIST PRACTICAL NURSING TEACHER KELLY WIGGINS M.D. Performed By: #### C SF TP, CSF PCR PANEL, CSFCCDIFF #2, GS, CSF GLU, AERC ####[facility] [address] [place] [address] [facility] SARS/FLU A+B/RSV by NAAT/Mol ecularon 08-13-2023 SARS/FLU A+B/RSV by NAAT/Molecular FLU A [...] operators who are performing tests using either [employer] or [employer] systems and is limited to laboratories that [...] specimen repeat. Fact Sheet for Healthcare Providers: https://www.fda.gov/media /703680/download Fact Sheet for Patients: https://www.fda.gov/media /311810/download Normal [facility] Comment on above: Performed By: #### C OVFLR #### [facility] ([id number]) [address] [place] [address] Cytology Cervical or vaginal smear or scraping studyOrdered By: Chelita Mayen on 03-05-2023 [facility] PAP ACOG PANEL 2: 30 to 65on 03-03-2022 . . Normal [facility] Comment on above: Result Comment: Perf ormed at: WB Performed By: #### 4 [id number] #### [facility] [address] [place] [address] Dr. Roc Coulter Age Gdln ACOG Testing - Normal [facility] Comment on above: Performed By: #### 4 [id number] #### [facility] [address] [place] [address] [address] Roc Coulter DIAGNOSIS: Comment Normal [facility] Comment on above: Result Comment: NEGA TIVE FOR INTRAEPITHELIAL LESION OR MALIGNANCY. Performed at: WB Performed By: #### 4 [id number] #### [facility] [address] [place] [address] Dr. Roc Coulter HPV Aptima Negative Normal Negative [facility] Comment on above: Result Comment: This nucleic acid amplification test detects fourteen high-risk HPV types (16,18,31,33,35,39,45,51,52,56,58,59,66,68) without differentiation. Performed at: =G Performed By: #### 4 [id number] #### [facility] [address] [place] [address] [address] Roc Coulter HPV Genotype Reflex Comment Normal [facility] Comment on above: Result Comment: Crit eria not met, HPV Genotype not performed. Performed at: WB Performed By: #### 4 [id number] #### [facility] [address] [place] [address] Dr. Roc Coulter Methodology: Comment [facility] Comment on above: Result Comment: This liquid based ThinPrep(R) pap test was screened with the use of an image guided system. Performed at: WB Performed By: #### 4 [id number] #### [facility] [address] [place] [address] Dr. Roc Coulter Note: Comment Normal [facility] Comment on above: Result Comment: The Pap smear is a screening test designed to aid in the detection of premalignant and malignant conditions of the uterine cervix. It is not a diagnostic procedure and should not be used as the sole means of detecting cervical cancer. Both false-positive and false-negative reports do occur. . Performed at: WB Performed By: #### 4 [id number] #### [facility] [address] [place] [address] Dr. Roc Coulter Performed by: Comment Normal [facility] Comment on above: Result Comment: Lina Qucah, Order Dispatcher (ASCP) Performed at: WB Performed By: #### 4 [id number] #### [facility] [address] [place] [address] Dr. Roc Coulter Specimen adequacy: Comment [facility] Comment on above: Result Comment: Sati sfactory for evaluation. Endocervical and/or squamous metaplastic cells (endocervical component) are present. Performed at: WB Performed By: #### 4 [id number] #### [facility] [address] [place] [address] Dr. Roc Coulter CBC AUTO DIFFon 08-24-2021 BASO # 0.0 103/ul Normal 0.0-0.1 [facility] Comment on above: Performed By: #### C BC #### [facility] [address] [place] [address] Dr. Roc Coulter Basophils/100 WBC (Bld) 0.3 % Normal 0.2-2.0 [facility] Comment on above: Performed By: #### C BC #### [facility] [address] [place] [address] Dr. Roc Coulter EO # 0.1 103/ul Normal 0.0-0.7 [facility] Comment on above: Performed By: #### C BC #### [facility] [address] [place] [address] Dr. Roc Coulter Eosinophils/100 WBC (Bld) 1.0 % Normal 0.9-7.0 [facility] Comment on above: Performed By: #### C BC #### [facility] [address] [place] [address] Dr. Roc Coulter Erythrocyte distribution width (RBC) [Ratio] 16.6 % Critically high 11.0-15.0 [facility] Comment on above: Performed By: #### C BC #### [facility] [address] [place] [address] Dr. Roc Coulter Hematocrit (Bld) [Volume fraction] 30.2 % Critically low 36.0-48.0 [facility] Comment on above: Performed By: #### C BC #### [facility] [address] [place] [address] Dr. Roc Coulter Hemoglobin (Bld) [Mass/Vol] 9.6 g/dL Critically low 12.0-16.0 [facility] Comment on above: Performed By: #### C BC #### [facility] [address] [place] [address] Dr. Roc Coulter IG # 0.10 10e3/ul Critically high 0.00-0.03 [facility] Comment on above: Performed By: #### C BC #### [facility] [address] [place] [address] Dr. Roc Coulter IG % 0.7 % Critically high 0.0-0.5 [facility] Comment on above: Performed By: #### C BC #### [facility] [address] [place] [address] Dr. Roc Coulter LYMPH # 2.5 103/ul Normal 1.2-3.8 [facility] Comment on above: Performed By: #### C BC #### [facility] [address] [place] [address] Dr. Roc Coulter Lymphocytes/100 WBC (Bld) 18.6 % Critically low 20.5-60.0 [facility] Comment on above: Performed By: #### C BC #### [facility] [address] [place] [address] Dr. Roc Coulter MANUAL DIFF REQ NO Normal [facility] Comment on above: Performed By: #### C BC #### [facility] [address] [place] [address] Dr. Roc Coulter MCH (RBC) [Entitic mass] 27.9 pg Normal 26.7-34.0 [facility] Comment on above: Performed By: #### C BC #### [facility] [address] [place] [address] Dr. Roc Coulter MCHC (RBC) [Mass/Vol] 31.8 g/dL Normal 29.9-35.2 [facility] Comment on above: Performed By: #### C BC #### [facility] [address] [place] [address] Dr. Roc Coulter MCV (RBC) [Entitic vol] 87.8 fL Normal 81.0-99.0 [facility] Comment on above: Performed By: #### C BC #### [facility] [address] [place] [address] Dr. Roc Coulter MONO # 0.9 103/ul Critically high 0.3-0.8 [facility] Comment on above: Performed By: #### C BC #### [facility] [address] [place] [address] Dr. Roc Coulter Monocytes/100 WBC (Bld) 6.7 % Normal 1.7-12.0 [facility] Comment on above: Performed By: #### C BC #### [facility] [address] [place] [address] Dr. Roc Coulter NEUT # 9.8 103/ul Critically high 1.4-6.5 [facility] Comment on above: Performed By: #### C BC #### [facility] [address] [place] [address] Dr. Roc Coulter Neutrophils/100 WBC (Bld) 72.7 % Normal 43.0-75.0 [facility] Comment on above: Performed By: #### C BC #### [facility] [address] [place] [address] [address] Roc Coulter Platelet mean volume (Bld) [Entitic vol] 10.4 fL Normal 9.5-13.5 [facility] Comment on above: Performed By: #### C BC #### [facility] [address] [place] [address] [address] Roc Coulter PLT 228 103/ul Normal 150-450 [facility] Comment on above: Performed By: #### C BC #### [facility] [address] [place] [address] [address] Roc Coulter RBC 3.44 106/ul Critically low 4.20-5.40 [facility] Comment on above: Performed By: #### C BC #### [facility] [address] [place] [address] [address] Roc Coulter WBC 13.4 103/ul Critically high 4.0-11.0 [facility] Comment on above: Performed By: #### C BC #### [facility] [address] [place] [address] [address] Roc Coulter CBC AUTO DIFFon 08-21-2021 BASO # 0.0 103/ul Normal 0.0-0.1 [facility] Comment on above: Performed By: #### C BC ####[facility] [address] [place] [address]Dr. Roc Coulter Basophils/100 WBC (Bld) 0.5 % Normal 0.2-2.0 [facility] Comment on above: Performed By: #### C BC ####[facility] [address] [place] [id number]. Roc Coulter EO # 0.1 103/ul Normal 0.0-0.7 [facility] Comment on above: Performed By: #### C BC ####[facility] [address] [place] [address]Dr. Roc Coulter Eosinophils/100 WBC (Bld) 1.1 % Normal 0.9-7.0 [facility] Comment on above: Performed By: #### C BC ####[facility] [address] [place] [address]Dr. Roc Coulter Erythrocyte distribution width (RBC) [Ratio] 16.1 % Critically high 11.0-15.0 [facility] Comment on above: Performed By: #### C BC ####[facility] [address] [place], [place] [address]Dr. Roc Coulter Hematocrit (Bld) [Volume fraction] 36.0 % Normal 36.0-48.0 [facility] Comment on above: Performed By: #### C BC ####[facility] [address] [place], [place] [address]DrWendy Roc Coulter Hemoglobin (Bld) [Mass/Vol] 11.7 g/dL Critically low 12.0-16.0 [facility] Comment on above: Performed By: #### C BC ####[facility] [address] [place], [place] [address]DrWendy Roc Coulter IG # 0.08 10e3/ul Critically high 0.00-0.03 [facility] Comment on above: Performed By: #### C BC ####[facility] [address] [place], [place] [address]DrWendy Roc Coulter IG % 0.9 % Critically high 0.0-0.5 [facility] Comment on above: Performed By: #### C BC ####[facility] [address] [place], [place] [address]DrWendy Roc Yfn LYMPH # 1.8 103/ul Normal 1.2-3.8 [facility] Comment on above: Performed By: #### C BC ####[facility] [address] [place], [place] [address]DrWendy Octaviaflorence Coulter Lymphocytes/100 WBC (Bld) 20.8 % Normal 20.5-60.0 [facility] Comment on above: Performed By: #### C BC ####[facility] [address] [place], [place] [address]DrWendy Octaviaflorence Coulter MANUAL DIFF REQ NO Normal [facility] Comment on above: Performed By: #### C BC ####[facility] [address] [place] [address]Dr. Roc Yfn MCH (RBC) [Entitic mass] 28.0 pg Normal 26.7-34.0 [facility] Comment on above: Performed By: #### C BC ####[facility] [address] [place], [place] [address]Dr. Roc Yfn MCHC (RBC) [Mass/Vol] 32.5 g/dL Normal 29.9-35.2 [facility] Comment on above: Performed By: #### C BC ####[facility] [address] [place] [address]Dr. Roc Coulter MCV (RBC) [Entitic vol] 86.1 fL Normal 81.0-99.0 [facility] Comment on above: Performed By: #### C BC ####[facility] [address] [place], [place] [address]Dr. Roc oCulter MONO # 0.8 103/ul Normal 0.3-0.8 [facility] Comment on above: Performed By: #### C BC ####[facility] [address] [place], [place] [address]Dr. Roc Coulter Monocytes/100 WBC (Bld) 9.6 % Normal 1.7-12.0 [facility] Comment on above: Performed By: #### C BC ####[facility] [address] [place], [place] [address]Dr. Roc Coulter NEUT # 5.9 103/ul Normal 1.4-6.5 [facility] Comment on above: Performed By: #### C BC ####[facility] [address] [place], [place] [address]DrWendy Coulter Neutrophils/100 WBC (Bld) 67.1 % Normal 43.0-75.0 [facility] Comment on above: Performed By: #### C BC ####[facility] [address] [place], [place] [address]DrWendy Coulter Platelet mean volume (Bld) [Entitic vol] 10.6 fL Normal 9.5-13.5 [facility] Comment on above: Performed By: #### C BC ####[facility] [address] [place], [place] [address]Mn. Roc Coulter PLT 235 103/ul Normal 150-450 [facility] Comment on above: Performed By: #### C BC ####[facility] [address] [place], [place] [address]Oz. Roc Coulter RBC 4.18 106/ul Critically low 4.20-5.40 [facility] Comment on above: Performed By: #### C BC ####[facility] [address] [place], [place] [address]Mi. Roc Coulter WBC 8.8 103/ul Normal 4.0-11.0 [facility] Comment on above: Performed By: #### C BC ####[facility] [address] [place], [place] [address]Uu. Roc Coulter Covid-19 PCR (CVDTB)on 08-05 SARS-CoV-2 (COVID-19) RNA NIMA+probe Ql (Unsp spec) Not detected Normal NOT DETECTED [facility] Comment on above: Result Comment: When [...] for this test is supported by the Junior Accountant Bookkeeper of Health and Human Service's declaration that [...] used). Performed By: #### C VDTBH #### [facility] [address] [place], [place] [address] Dr. Roc Coulter DRUG SCREEN RAPID (URINE)on 08-21-2021 AMP Negative Normal NEGATIVE [facility] Comment on above: Performed By: #### D RUGRPD #### [facility] [address] [place] [address] Dr. Roc Coulter BAR Negative Normal NEGATIVE [facility] Comment on above: Performed By: #### D RUGRPD #### [facility] [address] [place] [address] Dr. Roc Coulter BUP Negative Normal NEGATIVE [facility] Comment on above: Performed By: #### D RUGRPD #### [facility] [address] [place] [address] Dr. Roc Coulter BZO Negative Normal NEGATIVE [facility] Comment on above: Performed By: #### D RUGRPD #### [facility] [address] [place] [address] Dr. Roc Coulter SHAYY Negative Normal NEGATIVE [facility] Comment on above: Performed By: #### D RUGRPD #### [facility] [address] [place] [address] Dr. Roc Coulter CUT-OFFS SEE BELOW Normal [facility] Comment on above: Result Comment: AMP (Amphetamine): 500ng/mL, BAR (Barbituates): 200 ng/mL, BZO (Benzodiazepines): 150 ng/mL, BUP (Buprenorphine): 10 ng/mL, SHAYY (Cocaine): 150 ng/mL, mAMP (Methamphetamine): 500 ng/mL, MTD (Methadone): 200 ng/mL, OPI (Opiates): 100 ng/mL, OXY (Oxycodone): 100 ng/mL, PCP (Phencyclidine): 25 ng/mL, PPX (Propoxyphene): 300 ng/mL, THC (Cannabinoids): 50 ng/mL, TCA (Trycyclic Antidepressants): 300 ng/mL Performed By: #### D RUGRPD #### [facility] [address] [place] [address] Dr. Roc Coulter DRUG CUT HEADER DRUG CLASS TEST SYST EM CUT-OFF CONCENTRATIONS ARE FOLLOWS: Normal [facility] Comment on above: Performed By: #### D RUGRPD #### [facility] [address] [address] [address] Roc Coulter mAMP Negative Normal NEGATIVE [facility] Comment on above: Performed By: #### D RUGRPD #### [facility] [address] [address] [address] Roc Coulter MTD Negative Normal NEGATIVE [facility] Comment on above: Performed By: #### D RUGRPD #### [facility] [address] [address] [address] Roc Coulter OPI Negative Normal NEGATIVE [facility] Comment on above: Performed By: #### D RUGRPD #### [facility] [address] [address] [address] Roc Coulter OXY Negative Normal NEGATIVE [facility] Comment on above: Performed By: #### D RUGRPD #### [facility] [address] [place] [address] Dr. Roc Coulter PCP Negative Normal NEGATIVE [facility] Comment on above: Performed By: #### D RUGRPD #### [facility] [address] [place] [address] Dr. Roc Coulter PPX Negative Normal NEGATIVE [facility] Comment on above: Performed By: #### D RUGRPD #### [facility] [address] [place] [address] Dr. Roc Coulter TCA Negative Normal NEGATIVE [facility] Comment on above: Performed By: #### D RUGRPD #### [facility] [address] [address] [address] Roc Coulter THC Negative Normal NEGATIVE [facility] Comment on above: Performed By: #### D RUGRPD #### [facility] [address] [address] [address] Roc Coulter TYPE AND SCREENon 08-21-2021 TYPE AND SCREEN Negative Normal [facility] Comment on above: Performed By: #### T NS ####[facility] [id number] [address]Dr. Roc Coulter US PREG BIOPHY W NON [...] KULWINDER VENEGAS Date: 2021-08-19 16:43 Normal [facility] US PREG GROWTHon 08-01-2021 US PREG [...] KULWINDER VENEGAS Date: 2021-08-01 07:24 Normal [facility] GROUP B STREP CULTUREon 07-07 S. agalactiae Ag Ql (Unsp spec) Culture Observations: NEGATIVE FOR GROUP B STREPTOCOCCUS. Normal [facility] Comment on above: Performed By: #### G BSCX ####[facility] [id number] [address]Dr[address] Roc Coulter PREG GROWTHon 06-09-2021 US PREG GROWTH EXAMINATION: [...] by: KULWINDER VENEGAS Date: 2021-06-09 16:45 Normal [facility] US PREG INCOMPLETE ANATOMYon 06-09-2021 PREG INCOMPLETE ANATOMY EXAMINATION: US PREG INCOMPLETE ANATOMY HISTORY: screening COMPARISON: 05/06/2021 FINDINGS: Normal visualized anatomy: RVOT, LVOT, kidneys, spine, orbits Amniotic fluid index: 19.1 cm, normal Heart rate: 153 bpm IMPRESSION: Normal observed anatomy Electronically authenticated by: KULWINDER VENEGAS Date: 2021-06-09 16:46 Normal [facility] GTT 3 HR PREGon 05-28-2021 Glucose [Mass/Vol] 83 mg/dL Normal 74-106 [facility] Comment on above: Performed By: #### G TT3P #### [facility] [address] [address] [address] Roc Coulter Glucose [Mass/Vol] 176 mg/dL Normal [facility] Comment on above: Performed By: #### G TT3P #### [facility] [address] [address] [address] Roc Coulter Glucose [Mass/Vol] 125 mg/dL Normal [facility] Comment on above: Performed By: #### G TT3P #### [facility] [address] [place] [address] Dr. Roc Coulter Glucose [Mass/Vol] 97 mg/dL Normal [facility] Comment on above: Performed By: #### G TT3P #### [facility] [address] [place] [address] Dr. Roc Coulter GLUCOSE - 1HRon 05-06-2021 Glucose [Mass/Vol] 173 mg/dL Critically high 74-106 [facility] Comment on above: Performed By: #### G LU1HR #### [facility] [address] [place] [address] Dr. Roc Coulter HEMOGRAM AND PLATELon 2021 Hematocrit (Bld) [Volume fraction] 34.5 % Critically low 36.0-48.0 [facility] Comment on above: Performed By: #### H H #### [facility] [address] [place] [address] Dr. Roc Coulter Hemoglobin (Bld) [Mass/Vol] 10.8 g/dL Critically low 12.0-16.0 [facility] Comment on above: Performed By: #### H H #### [facility] [address] [place] [address] Dr. Roc Coulter MCH (RBC) [Entitic mass] 27.9 pg Normal 26.7-34.0 [facility] Comment on above: Performed By: #### H H #### [facility] [address] [place] [address] Dr. Roc Coulter MCHC (RBC) [Mass/Vol] 31.3 g/dL Normal 29.9-35.2 [facility] Comment on above: Performed By: #### H H #### [facility] [address] [place] [address] Dr. Roc Coulter MCV (RBC) [Entitic vol] 89.1 fL Normal 81.0-99.0 [facility] Comment on above: Performed By: #### H H #### [facility] [address] [address] [address] Roc Coulter PLT 298 103/ul Normal 150-450 [facility] Comment on above: Performed By: #### H H #### [facility] [address] [address] [address] Roc Coulter RBC 3.87 106/ul Critically low 4.20-5.40 [facility] Comment on above: Performed By: #### H H #### [facility] [address] [address] [address] Roc Coulter WBC 8.1 103/ul Normal 4.0-11.0 [facility] Comment on above: Performed By: #### H H #### [facility] [address] [address] [address] Roc Coulter US PREG ANATOMY SINGLEon [...] by: KULWINDER VENEGAS Date: 2021-05-06 16:06 Normal [facility] Progesteroneon 10-29-2020 Progesterone 9.3 ng/mL Normal [facility] Comment on above: Result Comment: Mens trual Cycle Progesterone Reference Ranges: Follicular:<1.0 ng/mL Ovulation:<12.1 ng/mL Luteal:1.8 to 23.9 ng/mL Progesterone Reference Ranges vary by gestational period: First Trimester:11.0 to 44.3 ng/mL Second trimester: 25.4 to 83.3 ng/mL Third trimester: 58.7 to 214 ng/mL Post menopausal Progesterone:<0.5 ng/mL Reference: 1. Progesterone (Progesterone III) [package insert V 1.0 [place]]. [employer], [place], [place]. November 2014. Performed By: #### P ELIZABETH #### [facility] [address] [address] OBSOLETEon 10-03-2020 OBSOLETE Refill (ENDOCC) ----- REBECCA WHITE ([id number]) 1990 F Date Time Provider Department 10/03/20 [...] PSS NOTE: Patient needs scheduled appointment No Jeaniedavidson Garcia 10/20/2020 2:11 PM Signed LM for patient to call back to schedule the yearly follow up with Dr. Allen as noted below. Allergies As of Date: 10/03/2020 (No Known Allergies) Date Reviewed: 05/06/2020 Reviewed by: Liliane Whitley) Rajendra - Fully Assessed Reason for Visit: Refill [...] (FLONASE) 50 mcg/actuation nasal spray Use 1 [place] in the nose as needed. - sertraline [...] Status:Closed by JEANIE GARCIA on 10/20/20 Normal [facility] Estradiol-17Bon 09-10-2020 Estradiol-17B 57 pg/mL Normal [facility] Comment on above: Result Comment: This test [...] 3243 pg/mL Second trimester : 1561 TO 42216 pg/mL Third trimester : 8285 to >70765 pg/mL Post-menopausal Estradiol reference range: < 41 pg/mL Reference: 1. Estradiol - E2 (Estradiol III) [package insert V 3.0 [place]]. [employer], [place], [place], July 2015. Performed By: #### I NSULN, DHEAS, VITD, HBA1C, DIONISIO #### [facility] [address] [address] HCG, Quantitative Blon 09-10 HCG, Quantitative Bl <0.6 Normal <5.0 [facility] Comment on above: Result Comment: NEGA SUMANTH Performed By: #### I NSULN, DHEAS, VITD, HBA1C, GERMAIN #### [facility] [address] [place] [address] Progesteroneon 09-10-2020 Progesterone 0.2 ng/mL Normal [facility] Comment on above: Result Comment: Mens trual Cycle Progesterone Reference Ranges: Follicular:<1.0 ng/mL Ovulation:<12.1 ng/mL Luteal:1.8 to 23.9 ng/mL Progesterone Reference Ranges vary by gestational period: First Trimester:11.0 to 44.3 ng/mL Second trimester: 25.4 to 83.3 ng/mL Third trimester: 58.7 to 214 ng/mL Post menopausal Progesterone:<0.5 ng/mL Reference: 1. Progesterone (Progesterone III) [package insert V 1.0 [place]]. [employer], [place], [place]. November 2014. Performed By: #### I NSULN, DHEAS, VITD, HBA1C, GERMAIN #### [facility] [address] [address] CNPNon 09-09-2020 CNPN Telephone (OBFive BelowAV) ----- CHRISTOPHERREBECCA ([id number]) 1990 F Date Time Provider Department 09/09/20 HALLE LEACH OBNIKA During your visit today, we recorded the following information about you: Sheela Trevino ELECTRO OPTICAL ENGINEER 09/09/2020 9:12 AM Signed Pt called Negative home test Day 42 of her cycle Please call [phone] Ok to leave a message Rafaela Millard [...] September 09, 2020 12:30 PM Maurice Bonilla APRN.PUBLIC HEALTH NUTRITIONIST 09/09/2020 12:43 PM Signed Labs ordered, if [...] amenorrhea [N91.1] Order(s):HCG QUANTITATIVE [SQHCGQT] Order #: [id number] FUTURE PROGESTERONE BLD [SQPROG] Order #: [id number] FUTURE ESTRADIOL-17B BLD [SQE2] Order #: [id number] FUTURE SCHEDULE LAB TESTING [5947434] Order #: [id number] FUTURE Prescriptions as of 09/09/2020 - medroxyPROGESTERone (PROVERA) 10 mg tablet Take 1 tablet by mouth once daily for 10 days. - fluticasone (FLONASE) 50 mcg/actuation nasal spray Use 1 [place] in the nose as needed. - sertraline [...] Status:Closed by MAURICE BONILLA on 09/09/20 [facility] 09-03-2020 QUOC Telephone (JOLENE) ----- REBECCA WHITE ([id number]) 1990 F Date Time Provider Department 09/03/20 HALLE LEACH During your visit today, we recorded the following information about you: Rafaela Millard RN 09/03/2020 8:22 AM Signed Patient sent a [employer] message. Called the patient she verified her [...] she used provera was May. Routing to [facility] Ivf Pool for advisement Rafaela Millard [...] (FLONASE) 50 mcg/actuation nasal spray Use 1 [place] in the nose as needed. - sertraline [...] Status:Closed by RAFAELA MILLARD on 09/09/20 Normal [facility] Progesteroneon 06-16-2020 Progesterone 14.3 ng/mL Normal [facility] Comment on above: Result Comment: Mens trual Cycle Progesterone Reference Ranges: Follicular:<1.0 ng/mL Ovulation:<12.1 ng/mL Luteal:1.8 to 23.9 ng/mL Progesterone Reference Ranges vary by gestational period: First Trimester:11.0 to 44.3 ng/mL Second trimester: 25.4 to 83.3 ng/mL Third trimester: 58.7 to 214 ng/mL Post menopausal Progesterone:<0.5 ng/mL Reference: 1. Progesterone (Progesterone III) [package insert V 1.0 [place]]. [employer], [place], [place]. November 2014. Performed By: #### P ELIZABETH #### [facility] [address] [place], [place] [address] Anti Germain Hormoneon 2020 Anti Germain Hormone 9.30 ng/mL High 0.58-8.13 [facility] Comment on above: Performed By: #### I NSULN, DHEAS, VITD, HBA1C, GERMAIN #### [facility] [address] [place], [place] [address] CBCon 05-06-2020 Absolute nRBC <0.01 Normal <0.01 [facility] Comment on above: Performed By: #### I NSULN, DHEAS, VITD, HBA1C, DIONISIO #### [address] [place], [place] [address] Erythrocyte distribution width (RBC) [Ratio] 13.2 % Normal 11.5-15.0 [facility] Comment on above: Performed By: #### I NSULN, DHEAS, VITD, HBA1C, DIONISIO #### [address] [address] Hematocrit (Bld) [Volume fraction] 44.5 % Normal 36.0-46.0 [facility] Comment on above: Performed By: #### I NSULN, DHEAS, VITD, HBA1C, DIONISIO #### [address] [id number] Hemoglobin (Bld) [Mass/Vol] 14.6 g/dL Normal 11.5-15.5 [facility] Comment on above: Performed By: #### I NSULN, DHEAS, VITD, HBA1C, DIONISIO #### [address] [place], [place] [address] MCH 29.4 pG Normal 26.0-34.0 [facility] Comment on above: Performed By: #### I NSULN, DHEAS, VITD, HBA1C, GERMAIN #### [address] [place], [place] [address] MCHC (RBC) [Mass/Vol] 32.8 g/dL Normal 30.5-36.0 [facility] Comment on above: Performed By: #### I NSULN, DHEAS, VITD, HBA1C, GERMAIN #### [address] [place], [place] [address] MCV (RBC) [Entitic vol] 89.5 fL Normal 80.0-100.0 [facility] [place] Comment on above: Performed By: #### I NSULN, DHEAS, VITD, HBA1CDIONISIO #### [address] [address] Platelet mean volume (Bld) [Entitic vol] 9.6 fL Normal 9.0-12.7 [facility] Comment on above: Performed By: #### I NSULN, DHEAS, VITD, HBA1CDIONISIO #### [address] [address] Platelets (Bld) [#/Vol] 314 10*3/uL Normal 150-400 [facility] Comment on above: Performed By: #### I NSULN, DHEAS, VITD, HBA1CDIONISIO #### [address] [address] RBC (Bld) [#/Vol] 4.97 10*6/uL Normal 3.90-5.20 [facility] Comment on above: Performed By: #### I NSULN, DHEAS, VITD, HBA1CDIONISIO #### [address] [address] WBC (Bld) [#/Vol] 8.64 10*3/uL Normal 3.70-11.00 [facility] Comment on above: Performed By: #### I NSULN, DHEAS, VITD, HBA1CDIONISIO #### [address] [address] CNOVon 05-06-2020 CNOV Office Visit (MINGO) ----- REBECCA WHITE ([id number]) 1990 F Date Time Provider Department 05/06/20 8:45 AM HALLE LEACH During your visit today, we recorded the following information about you: Pulse Blood pressure Weight Height 64/minute 119/64 104.6 kg 1.676 m Last Period 01/08/20 Liliane Drew MA 05/06/2020 8:50 AM Signed [facility] Date: 05/06/2020 Consultation Requested By: Dr [...] Hysteroscopy Laparoscopy OPK (Ovulation Predictor Kit) Ovarian [place] Ultrasound Semen Analysis Ultrasound Other (See [...] on file. 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 - sertraline [...] with more than 50% of the total plrf-pp-iqcc time of the visit in counseling / coordination of care. Medical Decision Making Consultation requested by Dr. Joycelyn Allen MD [address] [place] [address] [place] [address] for an opinion regarding irregular period and my recommendations will be (more content not included)... Normal [facility] CONSULT PROGon 05-06-2020 CONSULT PROG HNO ID: [id number] Author: Liliane Whitley) Rajendra Service: ? Author Type: Health Facilities Surveyor Type: Consult Progress Note Filed: 05/11/2020 7:30 PM Note Text: [facility] Date: 05/06/2020 Consultation [...] Hysteroscopy Laparoscopy OPK (Ovulation Predictor Kit) Ovarian [place] Ultrasound Semen Analysis Ultrasound Other (See [...] on file. 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/EXERCISE: Occupation: [employer] Exercise: no Partner Information Partner's Name: Pietro [...] (FLONASE) 50 mcg/actuation nasal spray Use 1 [place] in the nose as needed. - sertraline [...] with more than 50% of the total idlt-oi-jemo time of the visit in counseling / coordination of care. Medical Decision Making Consultation requested by Dr. Joycelyn Allen MD [address] [place] [address] [place] [address] for an opinion regarding irregular period and my recommendations will be communicated back to the requesting physician by way of shared Medical record or letter via US mail , MD signature - MD Shirin Agosto MD Normal [facility] Comp Metabolic Panelon 05-06 Albumin [Mass/Vol] 4.2 g/dL Normal 3.9-4.9 [facility] Comment on above: Performed By: #### I NSULN, DHEAS, VITD, HBA1C, GERMAIN #### [facility] [address] [id number] ALP [Catalytic activity/Vol] 81 U/L Normal 34-123 [facility] Comment on above: Performed By: #### I NSULN, DHEAS, VITD, HBA1C, GERMAIN #### [facility] [address] [place], [place] [id number] ALT [Catalytic activity/Vol] 18 U/L Normal 7-38 [facility] Comment on above: Performed By: #### I NSULN, DHEAS, VITD, HBA1C, GERMAIN #### [facility] [address] [place], [place] [address] Anion gap [Moles/Vol] 13 mmol/L Normal 9-18 [facility] Comment on above: Performed By: #### I NSULN, DHEAS, VITD, HBA1C, GERMAIN #### [facility] [address] [place], [place] [address] AST [Catalytic activity/Vol] 19 U/L Normal 13-35 [facility] Comment on above: Performed By: #### I NSULN, DHEAS, VITD, HBA1C, GERMAIN #### [address] [id number] Bilirubin [Mass/Vol] 0.3 mg/dL Normal 0.2-1.3 [facility] Comment on above: Performed By: #### I NSULN, DHEAS, VITD, HBA1C, GERMAIN #### [address] [address] Calcium [Mass/Vol] 9.3 mg/dL Normal 8.5-10.2 [facility] Comment on above: Performed By: #### I NSULN, DHEAS, VITD, HBA1C, GERMAIN #### [address] [address] Chloride [Moles/Vol] 103 mmol/L Normal 97-105 [facility] Comment on above: Performed By: #### I NSULN, DHEAS, VITD, HBA1C, GERMAIN #### [address] [id number] CO2 [Moles/Vol] 24 mmol/L Normal 22-30 [facility] Comment on above: Performed By: #### I NSULN, DHEAS, VITD, HBA1C, GERMAIN #### [address] [id number] Creatinine [Mass/Vol] 0.72 mg/dL Normal 0.58-0.96 [facility] Comment on above: Performed By: #### I NSULN, DHEAS, VITD, HBA1C, GERMAIN #### [facility] [address] [id number] eGFR- Amer. >60 Normal [facility] Comment on above: Performed By: #### I NSULN, DHEAS, VITD, HBA1CDIONISIO #### [facility] [address] [place], [place] [address] eGFR-All Other Races >60 Normal [facility] Comment on above: Result Comment: eGFR (Estimated [...] #### I NSULN, DHEAS, VITD, HBA1CDIONISIO #### [facility] [address], [place] [address] Glucose [Mass/Vol] 85 mg/dL Normal 74-99 [facility] Comment on above: Result Comment: The Iraqi [...] I NSULN, DHEAS, VITD, HBA1C, DIONISIO #### [facility] [address] [place], [place] [address] Potassium [Moles/Vol] 3.9 mmol/L Normal 3.7-5.1 [facility] Comment on above: Performed By: #### I NSULN, DHEAS, VITD, HBA1C, GERMAIN #### [facility] [address] [address] Protein [Mass/Vol] 7.4 g/dL Normal 6.3-8.0 [facility] Comment on above: Performed By: #### I NSULN, DHEAS, VITD, HBA1C, GERMAIN #### [facility] [address] [address] Sodium [Moles/Vol] 140 mmol/L Normal 136-144 [facility] Comment on above: Performed By: #### I NSULN, DHEAS, VITD, HBA1C, GERMAIN #### [address] [address] Urea nitrogen [Mass/Vol] 9 mg/dL Normal 7-21 [facility] Comment on above: Performed By: #### I NSULN, DHEAS, VITD, HBA1C, GERMAIN #### [address] [place] [address] DHEA-Son 05-06-2020 DHEA-S 154.9 ug/dL Normal 98.8-340.0 [facility] Comment on above: Result Comment: Refe rence ranges are age and gender specific. For additional information, reference range tables can be found in the laboratory test directory. The normal values are based on the following source: Dehydroepiandrosterone sulfate (DHEA S) [package insert V 17.0 [place]]. [employer], [place], [place]: September 2012. Performed By: #### I NSULN, DHEAS, VITD, HBA1C, GERMAIN #### [facility] [address] [id number] Hemoglobin A1con 05-06-2020 Glucose [Mass/Vol] 111 mg/dL Normal [facility] Comment on above: Result Comment: eAG: (Estimated average glucose) is a calculated value from HgbA1c and is promotional representative of the average blood glucose level in the last 2-3 month period. Performed By: #### I NSULN, DHEAS, VITD, HBA1C, DIONISIO #### [facility] [address] [place], [place] [address] HbA1c (Bld) [Mass fraction] 5.5 % Normal 4.3-5.6 [facility] Comment on above: Result Comment: Amer [place] Diabetes Association guidelines indicate that patients with HgbA1c in the range 5.7-6.4% are at increased risk for development of diabetes, and intervention by lifestyle modification may be beneficial. HgbA1c greater or equal to 6.5% is considered diagnostic of diabetes. Performed By: #### I NSULN, DHEAS, VITD, HBA1C, DIONISIO #### [facility] [address] [place], [place] [address] Insulinon 05-06-2020 Insulin 16.4 mU/L Normal 3.0-25.0 [facility] Comment on above: Performed By: #### I NSULN, DHEAS, VITD, HBA1C, DIONISIO #### [address] [place], [place] [address] Testosterone, Tot/Fron 05-06 Testosterone [Mass/Vol] 77 ng/dL High 8-60 C [facility] [place] Comment on above: Result Comment: (NOT E) ADDITIONAL INFORMATION Testing performed by Liquid Chromatography-Tandem Mass Spectrometry (LC-MS/MS). This test was developed and its performance characteristics determined by [facility] in a manner consistent with CLIA requirements. This test has not been cleared or approved by the U.S. Food and Drug Administration. Performed By: #### T FTEST #### [facility] [address] [place] [address] Testosterone, Free 1.54 ng/dL High 0.06-1.03 [facility] Comment on above: Result Comment: (NOT E) ADDITIONAL INFORMATION Testing performed by [facility]. This test was developed and its performance characteristics determined by [facility] in a manner consistent with CLIA requirements. This test has not been cleared or approved by the U.S. Food and Drug Administration. Performed By: #### T FTEST #### [facility] [address] [place] [address] Vitamin D 25 Hydroxyon 05-06 Vitamin D 25 Hydroxy 24.7 ng/mL Low 31.0-80.0 [facility] Comment on above: Result Comment: Clas sification of 25 [place] Vitamin D status: Insufficiency/Moderate Deficiency: < or = 30 ng/mL Sufficiency/Optimal Levels: 31 to 80 ng/mL Toxicity: > 100 ng/mL Test performed by chemiluminescent immunoassay. Performed By: #### I NSULN, DHEAS, VITD, HBA1C, GERMAIN #### [facility] [address] [place] [address] Creatinine,Urine,24hon 03-29 Creatinine,Urine,24h 1.713 g/24 hr Normal 0.8-1.8 [facility] [place] Comment on above: Performed By: #### I NSULN, DHEAS, VITD, HBA1C, GERMAIN #### [facility] [address] [place] [address] Free Ben, UR LCMSMSon 03-29 Collect Lgth, UFRCRT 24 Normal [facility] Comment on above: Performed By: #### I NSULN, DHEAS, VITD, HBA1C, GERMAIN #### [facility] [address] [place] [id number] Creatinine [Mass/Vol] 214 mg/dL Normal [facility] Comment on above: Performed By: #### I NSULN, DHEAS, VITD, HBA1C, GERMAIN #### [facility] [address] [place] [address] Total Volume, UFRCRT 710 Normal [facility] Comment on above: Performed By: #### I NSULN, DHEAS, VITD, HBA1C, GERMAIN #### [facility] [address] [place], [place] [address] UR Ben Free Interp SEE NOTE Normal [facility] [facility] Comment on above: Result Comment: (NOT E) INTERPRETIVE INFORMATION: Cortisol Urine Free by LC-MS/MS Access complete set of age- and/or gender-specific reference intervals for this test in the [facility] Test Directory ([facility]). This test was developed and its performance characteristics determined by [facility]. It has not been cleared or approved by the [place] Food and Drug Administration. This test was performed in a CLIA certified laboratory and is intended for clinical purposes. Performed by [facility], [address] [place] [id number] [email or web address], Lin Rosales MD, Lab. Director Performed By: #### I NSULN, DHEAS, VITD, HBA1C, GERMAIN #### [facility] [address], [place] [address] UR Ben Free ug/d 14.5 ug/d Normal <=45.0 [facility] Comment on above: Performed By: #### I NSULN, DHEAS, VITD, HBA1C, GERMAIN #### [facility] [address], [place] [address] UR Ben Free ug/L 20.40 ug/L Normal [facility] Comment on above: Performed By: #### I NSULN, DHEAS, VITD, HBA1C, GERMAIN #### [facility] [address], [place] [address] UR Cortisol ug/g program trainer 9.53 ug/g [employer]ORATORY TECHNICIAN Normal C [facility] Comment on above: Result Comment: (NOT E) Reference Interval: Cortisol ug/g program trainer Female Prepubertal: Less than 25 ug/g program trainer 18 years and older: Less than 24 ug/g program trainer : Less than 59 ug/g program trainer Male Prepubertal: Less than 25 ug/g program trainer 18 years and older: Less than 32 ug/g program trainer Performed By: #### I NSULN, DHEAS, VITD, HBA1C, GERMAIN #### [facility] [place] [address] [place] [address] UR,Creatinine mg/day 1519 mg/d Normal 700-1600 [facility] Comment on above: Performed By: #### I NSULN, DHEAS, VITD, HBA1C, GERMAIN #### [place] [id number] [place] [phone] Period / Volumeon 03-29-2020 Collection End Date [facility] Comment on above: Performed By: #### I NSULN, DHEAS, VITD, HBA1C, GERMAIN #### [place] [id number] [place] [phone] Collection End Time 0930 [facility] Comment on above: Performed By: #### I NSULN, DHEAS, VITD, HBA1C, GERMAIN #### [place] [id number] [place] [phone] Collection Start Date [facility] Comment on above: Performed By: #### I NSULN, DHEAS, VITD, HBA1C, GERMAIN #### [place] [id number] [place] [phone] Collection Start Time 0930 [facility] Comment on above: Performed By: #### I NSULN, DHEAS, VITD, HBA1C, GERMAIN #### [facility] [place] [address] [place] [phone] Period 24 hr [facility] Comment on above: Performed By: #### I NSULN, DHEAS, VITD, HBA1C, GERMAIN #### [facility] [place] [address] [place] [phone] Volume 710 mL [facility] Comment on above: Performed By: #### I NSULN, DHEAS, VITD, HBA1C, GERMAIN #### [facility] [address] [place] [address] Vital Signs Date Time Vital Sign Value Performing Clinician Nicolasajose curtis 08-21-2024 11:22-0400 Body height 165.1 cm Fran Velazquez MD Work Phone: [facility] 08-21-2024 11:22-0400 Body mass index (BMI) [Ratio] 46.59 kg/m2 Fran Velazquez MD Work Phone: [facility] 08-21-2024 11:22-0400 Body weight 127.01 kg Fran Velazquez MD Work Phone: [facility] 08-21-2024 11:22-0400 Diastolic blood pressure 60 mm[Hg] Fran Velazquez MD Work Phone: [facility] 08-21-2024 11:22-0400 Heart rate 82 /min Fran Velazquez MD Work Phone: [facility] 08-21-2024 11:22-0400 Systolic blood pressure 104 mm[Hg] Fran Velazquez MD Work Phone: [facility] 08-04-2024 13:44-0400 Body height 165.1 cm Alyssa Butterfield MD Work Phone: [facility] 08-04-2024 13:44-0400 Body mass index (BMI) [Ratio] 46 kg/m2 Alyssa Butterfield MD Work Phone: [facility] 08-04-2024 13:44-0400 Body weight 125.64 kg Alyssa Butterfield MD Work Phone: [facility] 08-04-2024 13:44-0400 Diastolic blood pressure 79 mm[Hg] Alyssa Butterfield MD Work Phone: [facility] 08-04-2024 13:44-0400 Heart rate 89 /min Alyssa Butterfield MD Work Phone: [facility] 08-04-2024 13:44-0400 Systolic blood pressure 121 mm[Hg] Alyssa Butterfield MD Work Phone: [facility] 07-30-2024 13:31-0400 Body height 165.1 cm Alyssa Butterfield MD Work Phone: [facility] 07-30-2024 13:31-0400 Body mass index (BMI) [Ratio] 45.6 kg/m2 Alyssa Butterfield MD Work Phone: [facility] 07-30-2024 13:31-0400 Body weight 124.28 kg Alyssa Butterfield MD Work Phone: [facility] 07-30-2024 13:31-0400 Diastolic blood pressure 82 mm[Hg] Alyssa Butterfield MD Work Phone: [facility] 07-30-2024 13:31-0400 Heart rate 85 /min Alyssa Butterfield MD Work Phone: [facility] 07-30-2024 13:31-0400 Respiratory rate 16 /min Alyssa Butterfield MD Work Phone: [facility] 07-30-2024 13:31-0400 SaO2% (BldA) [Mass fraction] 96 % Alyssa Butterfield MD Work Phone: [facility] 07-30-2024 13:31-0400 Systolic blood pressure 138 mm[Hg] Alyssa Butterfield MD Work Phone: [facility] 07-23-2024 08:06-0400 Body height 165.[address] 07-23-2024 08:06-0400 Body mass index (BMI) [Ratio] 46.26 kg/m2 [address] 07-23-2024 08:06-0400 Body weight 126.[address] 07-23-2024 08:06-0400 Diastolic blood pressure 76 mm[Hg] [address] 07-23-2024 08:06-0400 Systolic blood pressure 128 mm[Hg] [address] 07-17-2024 09:31-0400 Body height 165.1 cm Seamus Grier MD Work Phone: [facility] 07-17-2024 09:31-0400 Body mass index (BMI) [Ratio] 46.26 kg/m2 Seamus Grier MD Work Phone: [facility] 07-17-2024 09:31-0400 Body weight 126.1 kg Seamus Grier MD Work Phone: [facility] 07-17-2024 09:31-0400 Heart rate 89 /min Seamus Grier MD Work Phone: [facility] 07-17-2024 09:31-0400 Respiratory rate 18 /min Seamus Grier MD Work Phone: [facility] 07-17-2024 09:31-0400 SaO2% (BldA) [Mass fraction] 95 % Seamus Grier MD Work Phone: [facility] 06-17-2024 10:03-0400 Diastolic blood pressure 89 mm[Hg] Alyssa Butterfield MD Work Phone: [facility] 06-17-2024 10:03-0400 Heart rate 90 /min Alyssa Butterfield MD Work Phone: [facility] 06-17-2024 10:03-0400 Systolic blood pressure 145 mm[Hg] Alyssa Butterfield MD Work Phone: [facility] 06-04-2024 11:24-0400 Body height 165.1 cm [facility] 06-04-2024 11:24-0400 Body mass index (BMI) [Ratio] 46.7 kg/m2 [facility] 06-04-2024 11:24-0400 Body weight 127.45 kg [facility] 06-04-2024 11:24-0400 Diastolic blood pressure 78 mm[Hg] [facility] 06-04-2024 11:24-0400 Heart rate 76 /min [facility] 06-04-2024 11:24-0400 Respiratory rate 12 /min [facility] 06-04-2024 11:24-0400 SaO2% (BldA) [Mass fraction] 97 % [facility] 06-04-2024 11:24-0400 Systolic blood pressure 118 mm[Hg] [facility] 05-28-2024 14:34-0400 Diastolic blood pressure 86 mm[Hg] Lauryn [address] [place] [address] 05-28-2024 14:34-0400 Heart rate 92 /min [address] 05-28-2024 14:34-0400 Systolic blood pressure 128 mm[Hg] [address] 05-15-2024 13:08-0400 Body height 165.1 cm Fran Velazquez MD Work Phone: [facility] 05-15-2024 13:08-0400 Body mass index (BMI) [Ratio] 46.26 kg/m2 Fran Velazquez MD Work Phone: [facility] 05-15-2024 13:08-0400 Body weight 126.1 kg Fran Velazquez MD Work Phone: [facility] 05-15-2024 13:08-0400 Diastolic blood pressure 80 mm[Hg] Fran Velazquez MD Work Phone: [facility] 05-15-2024 13:08-0400 Heart rate 84 /min Fran Velazquez MD Work Phone: [facility] 05-15-2024 13:08-0400 Systolic blood pressure 126 mm[Hg] Fran Velazquez MD Work Phone: [facility] 05-01-2024 14:50-0400 Body height 165.1 cm [facility] 05-01-2024 14:50-0400 Body mass index (BMI) [Ratio] 46.1 kg/m2 [facility] 05-01-2024 14:50-0400 Body weight 125.81 kg [facility] 05-01-2024 14:50-0400 Diastolic blood pressure 73 mm[Hg] [facility] 05-01-2024 14:50-0400 Heart rate 96 /min [facility] 05-01-2024 14:50-0400 Respiratory rate 12 /min [facility] 05-01-2024 14:50-0400 SaO2% (BldA) [Mass fraction] 98 % [facility] 05-01-2024 14:50-0400 Systolic blood pressure 128 mm[Hg] [facility] 03-27-2024 09:45-0500 Body height 165.1 cm [facility] 03-27-2024 09:45-0500 Body mass index (BMI) [Ratio] 45.7 kg/m2 [facility] 03-27-2024 09:45-0500 Body weight 124.73 kg [facility] 03-27-2024 09:45-0500 Diastolic blood pressure 84 mm[Hg] [facility] 03-27-2024 09:45-0500 Heart rate 85 /min [facility] 03-27-2024 09:45-0500 SaO2% (BldA) [Mass fraction] 97 % [facility] 03-27-2024 09:45-0500 Systolic blood pressure 125 mm[Hg] [facility] 03-11-2024 16:21-0500 Body mass index (BMI) [Ratio] 45.76 kg/m2 Naya Butler PICTURES EDITOR Work Phone: [facility] 03-11-2024 16:21-0500 Body weight 124.74 kg Naya Butler PICTURES EDITOR Work Phone: [facility] 03-11-2024 16:21-0500 Diastolic blood pressure 86 mm[Hg] Naya Butler PICTURES EDITOR Work Phone: [facility] 03-11-2024 16:21-0500 Heart rate 104 /min Naya Butler PICTURES EDITOR Work Phone: [facility] 03-11-2024 16:21-0500 SaO2% (BldA) [Mass fraction] 95 % Naya Butler PICTURES EDITOR Work Phone: [facility] 03-11-2024 16:21-0500 Systolic blood pressure 142 mm[Hg] Naya Butler PICTURES EDITOR Work Phone: [facility] 03-06-2024 09:35-0500 Body height 165.1 cm [facility] 03-06-2024 09:35-0500 Body mass index (BMI) [Ratio] 45.6 kg/m2 [facility] 03-06-2024 09:35-0500 Body weight 124.39 kg [facility] 03-06-2024 09:35-0500 Diastolic blood pressure 62 mm[Hg] [facility] 03-06-2024 09:35-0500 Heart rate 62 /min [facility] 03-06-2024 09:35-0500 SaO2% (BldA) [Mass fraction] 96 % [facility] 03-06-2024 09:35-0500 Systolic blood pressure 108 mm[Hg] [facility] 03-06-2024 08:40-0500 Body mass index (BMI) [Ratio] 45.62 kg/m2 Ricci Harpreet DO Work Phone: [facility] 03-06-2024 08:40-0500 Body weight 124.34 kg Ricci Harpreet DO Work Phone: [facility] 03-06-2024 08:40-0500 Diastolic blood pressure 78 mm[Hg] Ricci Harpreet DO Work Phone: [facility] 03-06-2024 08:40-0500 Systolic blood pressure 120 mm[Hg] Ricci Harpreet DO Work Phone: [facility] 02-26-2024 10:01-0500 Body height 165.1 cm [facility] 02-26-2024 10:01-0500 Body mass index (BMI) [Ratio] 45.7 kg/m2 [facility] 02-26-2024 10:01-0500 Body weight 124.73 kg [facility] 02-26-2024 10:01-0500 Diastolic blood pressure 64 mm[Hg] [facility] 02-26-2024 10:01-0500 Heart rate 99 /min [facility] 02-26-2024 10:01-0500 Systolic blood pressure 111 mm[Hg] [facility] 02-14-2024 11:24-0500 Body height 165.1 cm [facility] 02-14-2024 11:24-0500 Body mass index (BMI) [Ratio] 45.7 kg/m2 [facility] 02-14-2024 11:24-0500 Body temperature 97.7 [degF] [facility] 02-14-2024 11:24-0500 Body weight 124.73 kg [facility] 02-14-2024 11:24-0500 Diastolic blood pressure 73 mm[Hg] [facility] 02-14-2024 11:24-0500 Heart rate 87 /min [facility] 02-14-2024 11:24-0500 SaO2% (BldA) [Mass fraction] 97 % [facility] 02-14-2024 11:24-0500 Systolic blood pressure 107 mm[Hg] [facility] 01-22-2024 13:01-0500 Body mass index (BMI) [Ratio] 45.43 kg/m2 Naya Butler PICTURES EDITOR Work Phone: [facility] 01-22-2024 13:01-0500 Body weight 123.83 kg Naya Butler PICTURES EDITOR Work Phone: [facility] 01-22-2024 13:01-0500 Diastolic blood pressure 70 mm[Hg] Naya Butler PICTURES EDITOR Work Phone: [facility] 01-22-2024 13:01-0500 Heart rate 98 /min Naya Butler PICTURES EDITOR Work Phone: [facility] 01-22-2024 13:01-0500 SaO2% (BldA) [Mass fraction] 96 % Naya Butler PICTURES EDITOR Work Phone: [facility] 01-22-2024 13:01-0500 Systolic blood pressure 118 mm[Hg] Naya Butler PICTURES EDITOR Work Phone: [facility] 01-17-2024 15:35-0500 Body height 165.1 cm [facility] 01-17-2024 15:35-0500 Body mass index (BMI) [Ratio] 44.7 kg/m2 [facility] 01-17-2024 15:35-0500 Body weight 122.01 kg [facility] 01-17-2024 15:35-0500 Diastolic blood pressure 68 mm[Hg] [facility] 01-17-2024 15:35-0500 Heart rate 78 /min [facility] 01-17-2024 15:35-0500 SaO2% (BldA) [Mass fraction] 98 % [facility] 01-17-2024 15:35-0500 Systolic blood pressure 110 mm[Hg] [facility] 12-24-2023 15:29-0500 Body height 165.1 cm Alyssa Butterfield MD Work Phone: [facility] 12-24-2023 15:29-0500 Body mass index (BMI) [Ratio] 43.9 kg/m2 Alyssa Butterfield MD Work Phone: [facility] 12-24-2023 15:29-0500 Body weight 119.74 kg Alyssa Butterfield MD Work Phone: [facility] 12-24-2023 15:29-0500 Diastolic blood pressure 78 mm[Hg] Alyssa Butterfield MD Work Phone: [facility] 12-24-2023 15:29-0500 Heart rate 86 /min Alyssa Butterfield MD Work Phone: [facility] 12-24-2023 15:29-0500 SaO2% (BldA) [Mass fraction] 97 % Alyssa Butterfield MD Work Phone: [facility] 12-24-2023 15:29-0500 Systolic blood pressure 110 mm[Hg] Alyssa Butterfield MD Work Phone: [facility] 11-20-2023 08:15-0400 Body mass index (BMI) [Ratio] 45.73 kg/m2 Bonnie Johnson DO Work Phone: [place] [address]-15-2024 08:15-0400 Body weight 124.65 kg Christopher Alex DO Work Phone: [facility] 11-20-2023 08:15-0400 Diastolic blood pressure 80 mm[Hg] Christopher Alex DO Work Phone: [facility] 11-20-2023 08:15-0400 Heart rate 91 /min Christopher Alex DO Work Phone: [facility] 11-20-2023 08:15-0400 SaO2% (BldA) [Mass fraction] 95 % Christopher Alex DO Work Phone: [facility] 11-20-2023 08:15-0400 Systolic blood pressure 131 mm[Hg] Christopher Alex DO Work Phone: [facility] 10-22-2023 13:54-0400 Body height 165.1 cm MD Alyssa Butterfield Work Phone: [facility] 10-22-2023 13:54-0400 Body mass index (BMI) [Ratio] 46.2 kg/m2 MD Alyssa Butterfield Work Phone: [facility] 10-22-2023 13:54-0400 Body weight 126.09 kg MD Alyssa Butterfield Work Phone: [facility] 10-22-2023 13:54-0400 Diastolic blood pressure 64 mm[Hg] MD Alyssa Butterfield Work Phone: [facility] 10-22-2023 13:54-0400 Heart rate 80 /min MD Alyssa Butterfield Work Phone: [facility] 10-22-2023 13:54-0400 Systolic blood pressure 96 mm[Hg] MD Alyssa Butterfield Work Phone: [facility] 10-15-2023 15:49-0400 Body height 165.1 cm Naya Butler NP Work Phone: [facility] 10-15-2023 15:49-0400 Body mass index (BMI) [Ratio] 44.93 kg/m2 Naya Butler PICTURES EDITOR Work Phone: [facility] 10-15-2023 15:49-0400 Body weight 122.47 kg Naya Butler PICTURES EDITOR Work Phone: [facility] 10-15-2023 15:49-0400 Diastolic blood pressure 72 mm[Hg] Naya Butler PICTURES EDITOR Work Phone: [facility] 10-15-2023 15:49-0400 Heart rate 87 /min Naya Butler PICTURES EDITOR Work Phone: [facility] 10-15-2023 15:49-0400 SaO2% (BldA) [Mass fraction] 97 % Naya Butler PICTURES EDITOR Work Phone: [facility] 10-15-2023 15:49-0400 Systolic blood pressure 134 mm[Hg] Naya Butler PICTURES EDITOR Work Phone: [facility] 09-27-2023 13:55-0400 Body height 165.1 cm MD Alyssa Butterfield Work Phone: [facility] 09-27-2023 13:55-0400 Body mass index (BMI) [Ratio] 45.1 kg/m2 MD Alyssa Butterfield Work Phone: [facility] 09-27-2023 13:55-0400 Body weight 122.92 kg MD Alyssa Butterfield Work Phone: [facility] 09-27-2023 13:55-0400 Diastolic blood pressure 61 mm[Hg] MD Alyssa Butterfield Work Phone: [facility] 09-27-2023 13:55-0400 Heart rate 101 /min MD Alyssa Butterfield Work Phone: [facility] 09-27-2023 13:55-0400 Systolic blood pressure 94 mm[Hg] MD Alyssa Butterfield Work Phone: [facility] 09-25-2023 09:35-0400 Diastolic blood pressure 74 mm[Hg] MD Alyssa Butterfield Work Phone: [facility] 09-25-2023 09:35-0400 Heart rate 72 /min MD Alyssa Butterfield Work Phone: [facility] 09-25-2023 09:35-0400 Respiratory rate 16 /min MD Alyssa Butterfield Work Phone: [facility] 09-25-2023 09:35-0400 SaO2% (BldA) [Mass fraction] 96 % MD Alyssa Butterfield Work Phone: [facility] 09-25-2023 09:35-0400 Systolic blood pressure 117 mm[Hg] MD Alyssa Butterfield Work Phone: [facility] 09-25-2023 07:59-0400 Body height 165.1 cm MD Alyssa Butterfield Work Phone: [facility] 09-25-2023 07:59-0400 Body weight 120.2 kg MD Alyssa Butterfield Work Phone: [facility] 09-06-2023 09:51-0400 Body height 165.1 cm MD Alyssa Butterfield Work Phone: [facility] 09-06-2023 09:51-0400 Body mass index (BMI) [Ratio] 44.7 kg/m2 MD Alyssa Butterfield Work Phone: [facility] 09-06-2023 09:51-0400 Body weight 122.01 kg MD Alyssa Butterfield Work Phone: [facility] 09-06-2023 09:51-0400 Diastolic blood pressure 69 mm[Hg] MD Alyssa Butterfield Work Phone: [facility] 09-06-2023 09:51-0400 Heart rate 88 /min MD Alyssa Butterfield Work Phone: [facility] 09-06-2023 09:51-0400 Systolic blood pressure 105 mm[Hg] MD Alyssa Butterfield Work Phone: [facility] 08-16-2023 09:30-0400 Body height 165.1 cm MD Alyssa Butterfield Work Phone: [facility] 08-16-2023 09:30-0400 Body mass index (BMI) [Ratio] 44.6 kg/m2 MD Alyssa Butterfield Work Phone: [facility] 08-16-2023 09:30-0400 Body temperature 98.4 [degF] MD Alyssa Butterfield Work Phone: [facility] 08-16-2023 09:30-0400 Body weight 121.56 kg MD Alyssa Butterfield Work Phone: [facility] 08-16-2023 09:30-0400 Diastolic blood pressure 78 mm[Hg] MD Alyssa Butterfield Work Phone: [facility] 08-16-2023 09:30-0400 Heart rate 74 /min MD Alyssa Butterfield Work Phone: [facility] 08-16-2023 09:30-0400 SaO2% (BldA) [Mass fraction] 98 % MD Alyssa Butterfield Work Phone: [facility] 08-16-2023 09:30-0400 Systolic blood pressure 126 mm[Hg] MD Alyssa Butterfield Work Phone: [facility] 07-31-2023 15:22-0400 Body height 165.1 cm MD Alyssa Butterfield Work Phone: [facility] 07-31-2023 15:22-0400 Body mass index (BMI) [Ratio] 44.4 kg/m2 MD Alyssa Butterfield Work Phone: [facility] 07-31-2023 15:22-0400 Body temperature 98.5 [degF] MD Alyssa Butterfield Work Phone: [facility] 07-31-2023 15:22-0400 Body weight 121.1 kg MD Alyssa Butterfield Work Phone: [facility] 07-31-2023 15:22-0400 Diastolic blood pressure 87 mm[Hg] MD Alyssa Butterfield Work Phone: [facility] 07-31-2023 15:22-0400 Heart rate 90 /min MD Alyssa Butterfield Work Phone: [facility] 07-31-2023 15:22-0400 Systolic blood pressure 137 mm[Hg] MD Alyssa Butterfield Work Phone: [facility] 06-28-2023 13:48-0400 Body height 165.1 cm MD Alyssa Butterfield Work Phone: [facility] 06-28-2023 13:48-0400 Body mass index (BMI) [Ratio] 44.6 kg/m2 MD Alyssa Butterfield Work Phone: [facility] 06-28-2023 13:48-0400 Body weight 121.56 kg MD Alyssa Butterfield Work Phone: [facility] 06-28-2023 13:48-0400 Diastolic blood pressure 69 mm[Hg] MD Alyssa Butterfield Work Phone: [facility] 06-28-2023 13:48-0400 Heart rate 83 /min MD Alyssa Butterfield Work Phone: [facility] 06-28-2023 13:48-0400 Systolic blood pressure 104 mm[Hg] MD Alyssa Butterfield Work Phone: [facility] 05-30-2023 09:59-0400 Body height 165.1 cm MD Alyssa Butterfield Work Phone: [facility] 05-30-2023 09:59-0400 Body mass index (BMI) [Ratio] 44.1 kg/m2 MD Alyssa Butterfield Work Phone: [facility] 05-30-2023 09:59-0400 Body weight 120.31 kg MD Alyssa Butterfield Work Phone: [facility] 05-30-2023 09:59-0400 Diastolic blood pressure 80 mm[Hg] MD Alyssa Butterfield Work Phone: [facility] 05-30-2023 09:59-0400 Heart rate 92 /min MD Alyssa Butterfield Work Phone: [facility] 05-30-2023 09:59-0400 SaO2% (BldA) [Mass fraction] 98 % MD Alyssa Butterfield Work Phone: [facility] 05-30-2023 09:59-0400 Systolic blood pressure 124 mm[Hg] MD Alyssa Butterfield Work Phone: [facility] 04-30-2023 13:14-0400 Body height 165.1 cm MD Alyssa Butterfield Work Phone: [facility] 04-30-2023 13:14-0400 Body mass index (BMI) [Ratio] 43.8 kg/m2 MD Alyssa Butterfield Work Phone: [facility] 04-30-2023 13:14-0400 Body weight 119.4 kg MD Alyssa Butterfield Work Phone: [facility] 04-30-2023 13:14-0400 Diastolic blood pressure 72 mm[Hg] MD Alyssa Butterfield Work Phone: [facility] 04-30-2023 13:14-0400 Heart rate 92 /min MD Alyssa Butterfield Work Phone: [facility] 04-30-2023 13:14-0400 Systolic blood pressure 104 mm[Hg] MD Alyssa Butterfield Work Phone: [facility] 04-18-2023 10:28-0400 Body height 165.1 cm MD Alyssa Butterfield Work Phone: [facility] 04-18-2023 10:28-0400 Body mass index (BMI) [Ratio] 42.4 kg/m2 MD Alyssa Butterfield Work Phone: [facility] 04-18-2023 10:28-0400 Body temperature 95.1 [degF] MD Alyssa Butterfield Work Phone: [facility] 04-18-2023 10:28-0400 Body weight 115.72 kg MD Alyssa Butterfield Work Phone: [facility] 04-18-2023 10:28-0400 Diastolic blood pressure 69 mm[Hg] MD Alyssa Butterfield Work Phone: [facility] 04-18-2023 10:28-0400 Heart rate 83 /min MD Alyssa Butterfield Work Phone: [facility] 04-18-2023 10:28-0400 Systolic blood pressure 92 mm[Hg] MD Alyssa Butterfield Work Phone: [facility] 04-16-2023 08:55-0400 Body height 165.1 cm MD Alyssa Butterfield Work Phone: [facility] 04-16-2023 08:55-0400 Body mass index (BMI) [Ratio] 42.5 kg/m2 MD Alyssa Butterfield Work Phone: [facility] 04-16-2023 08:55-0400 Body temperature 96.1 [degF] MD Alyssa Butterfield Work Phone: [facility] 04-16-2023 08:55-0400 Body weight 115.83 kg MD Alyssa Butterfield Work Phone: [facility] 04-16-2023 08:55-0400 Diastolic blood pressure 79 mm[Hg] MD Alyssa Butterfield Work Phone: [facility] 04-16-2023 08:55-0400 Heart rate 79 /min MD Alyssa Butterfield Work Phone: [facility] 04-16-2023 08:55-0400 Systolic blood pressure 122 mm[Hg] MD Alyssa Butterfield Work Phone: [facility] 03-08-2023 08:30-0500 Body height 165.1 cm MD Alyssa Butterfield Work Phone: [facility] 03-08-2023 08:30-0500 Body weight 118.47 kg MD Alyssa Butterfield Work Phone: [facility] 03-08-2023 08:30-0500 Diastolic blood pressure 68 mm[Hg] MD Alyssa Butterfield Work Phone: [facility] 03-08-2023 08:30-0500 Systolic blood pressure 102 mm[Hg] MD Alyssa Butterfield Work Phone: [facility] 02-27-2022 09:45-0500 Body height 165.1 cm Alyssa Butterfield Other [employer] [facility] [employer] Other 02-27-2022 09:45-0500 Body mass index (BMI) [Ratio] 43.26 kg/m2 Alyssa Butterfield Other [employer] Other 02-27-2022 09:45-0500 Body weight 117.94 kg Alyssa Butterfield Other [employer] Other 02-27-2022 09:45-0500 Diastolic blood pressure 80 mm[Hg] Alyssa Butterfield Other [employer] Other 02-27-2022 09:45-0500 SaO2% (BldA) [Mass fraction] 91 % Alyssa Butterfield Other [employer] Other 02-27-2022 09:45-0500 Systolic blood pressure 120 mm[Hg] Alyssa Butterfield Other [employer] Other Encounters Encounter Date Encounter Type Care Provider Facility Start: 08-21-2024 End: 08-21-2024 ambulatory [facility] Start: 08-21-2024 End: 08-21-2024 Office outpatient visit 25 minutes Fran Velazquez MD Work Phone: [facility] Comment on above: Lightheadedness; Mixed hyperlipidemia; SOB (shortness of breath) on exertion; Tachycardia; Palpitations; PCOS (polycystic ovarian syndrome); Snoring; Never smoked tobacco; BMI 45.0-49.9, adult (Multi) Start: 08-04-2024 End: 08-04-2024 ambulatory Alyssa Butterfield MD Work Phone: [facility] Work Phone: Start: 08-04-2024 End: 08-04-2024 Patient encounter procedure Alyssa Butterfield MD -[facility] Work Phone: Start: 07-30-2024 End: 07-30-2024 ambulatory Alyssa Butterfield MD Work Phone: [facility] Work Phone: Start: 07-30-2024 End: 07-30-2024 Patient encounter procedure Naya Butler WORKERS' COMPENSATION MEDIATOR-GLASSWARE FINISHER-C -[facility] [place] Work Phone: Start: 07-24-2024 End: 07-24-2024 ambulatory SEAMUS GRIER Not Available Start: 07-23-2024 End: 07-23-2024 ambulatory [facility] Start: 07-23-2024 End: 07-23-2024 Subsequent hospital visit by physician Lauryn Bey Echo/Vasc Room 2 [facility] Comment on above: SOB (shortness of br eath) on exertion; Vertigo Start: 07-17-2024 End: 07-17-2024 Bamerickao sheltonheet Seamus Grier MD Work Phone: [facility] Start: 07-17-2024 End: 07-17-2024 Carlos Eduardo Grier MD Work Phone: [facility] Start: 07-17-2024 End: 07-17-2024 ambulatory SEAMUS GRIER Not Available Start: 07-17-2024 End: 07-17-2024 Office outpatient new 45 minutes Seamus Grier MD Work Phone: [facility] Comment on above: Subclinical hypothyr oidism (Primary Dx); Vitamin D deficiency; Encounter for dietary consultation; Class 2 obesity due to excess calories without serious comorbidity with body mass index (BMI) of 36.0 to 36.9 in adult Start: 06-17-2024 End: 06-17-2024 Patient encounter procedure Alyssa Butterfield MD Work Phone: [facility] Work Phone: Start: 06-17-2024 End: 06-17-2024 ambulatory Alyssa Butterfield MD Work Phone: [facility] Work Phone: Start: 06-04-2024 End: 06-04-2024 ambulatory [facility] Work Phone: Start: 06-04-2024 End: 06-04-2024 [facility] Work Phone: Start: 05-28-2024 End: 05-28-2024 Subsequent hospital visit by physician Lauryn Bey Stress Room 1 [facility] Comment on above: SOB (shortness of br eath) on exertion; Lightheadedness; Palpitations; Near syncope; Vertigo Start: 05-28-2024 End: 05-28-2024 ambulatory [facility] Start: 05-21-2024 ambulatory Chito Vinson acility:[facility] Start: 05-19-2024 End: 05-19-2024 ambulatory [facility] Start: 05-17-2024 Non-patient / [facility]-visit [facility] Work Phone: Start: 05-15-2024 End: 05-15-2024 Office outpatient new 60 minutes Fran Velazquez MD Work Phone: [facility] Comment on above: Encounter to [facility]; Mixed hyperlipidemia; SOB (shortness of breath) on exertion; Lightheadedness; Palpitations; Near syncope; Vertigo; Snoring; Insulin resistance; PCOS (polycystic ovarian syndrome); Family history of breast cancer; Adrenal mass 1 cm to 4 cm in diameter with no history of malignant neoplasm; Anxiety; Vitamin D deficiency; Hx of section; BMI 45.0-49.9, adult (Multi); Never smoked tobacco; Tachycardia Start: 05-15-2024 End: 05-15-2024 ambulatory [facility] Start: 05-01-2024 End: 05-01-2024 ambulatory [facility] Work Phone: Start: 05-01-2024 End: 05-01-2024 Patient encounter procedure [facility] Work Phone: Start: 04-29-2024 End: 04-29-2024 ambulatory NAYA BUTLER Not Available Start: 04-01-2024 End: 04-01-2024 Telephone encounter Naya Butler PICTURES EDITOR Work Phone: [facility] Start: 04-01-2024 End: 04-01-2024 ambulatory Yun Naranjo PT Work Phone: [facility] Comment on above: Cervicalgia (Primary Dx); Vertigo of central origin Start: 03-27-2024 End: 03-27-2024 [facility] Work Phone: Start: 03-27-2024 End: 03-27-2024 Patient encounter procedure [facility] Work Phone: Start: 03-11-2024 End: 03-11-2024 Office outpatient visit 15 minutes Naya Butler PICTURES EDITOR Work Phone: [facility] Comment on above: Dizziness (Primary D x); Intracranial hypertension; Class 3 severe obesity due to excess calories with serious comorbidity and body mass index (BMI) of 45.0 to 49.9 in adult ([facility]); Encounter for medication monitoring Start: 03-11-2024 End: 03-11-2024 ambulatory NAYA BUTLER Not Available Start: 03-11-2024 End: 03-11-2024 Bamboo flowsheet Naya Butler PICTURES EDITOR Work Phone: [facility] Start: 03-11-2024 End: 03-11-2024 Bamboo flowsheet Naya Butler PICTURES EDITOR Work Phone: [facility] Start: 03-11-2024 End: 03-13-2024 Telephone encounter Naya Butler PICTURES EDITOR Work Phone: [facility] Comment on [...] control counseling Start: 03-06-2024 End: 03-06-2024 ambulatory [facility] Work Phone: Start: 02-26-2024 End: 02-26-2024 ambulatory [facility] Work Phone: Start: 02-26-2024 End: 02-26-2024 Patient encounter procedure [facility] Work Phone: Start: 02-14-2024 End: 02-14-2024 ambulatory [facility] Work Phone: Start: 02-14-2024 End: 02-14-2024 Patient encounter procedure [facility] Work Phone: Start: 02-05-2024 End: 02-05-2024 Treatment Yun Naranjo PT Work Phone: [facility] Comment on above: Cervicalgia (Primary Dx); Vertigo of central origin; Balance disorder Start: 01-23-2024 End: 01-23-2024 Evaluation Yun Naranjo PT Work Phone: [facility] Comment on above: Cervicalgia (Primary Dx); Balance disorder; Dizziness; Vertigo of central origin Start: 01-22-2024 End: 01-22-2024 Bamboo flowsheet Naya Paganoll PICTURES EDITOR Work Phone: [facility] Start: 01-22-2024 End: 01-22-2024 Bamboo flowsheet Naya Butler PICTURES EDITOR Work Phone: [facility] Start: 01-22-2024 End: 01-22-2024 Clinisync Result Encounter Naya Paganoll PICTURES EDITOR Work Phone: [facility] External Department Unsolicited Start: 01-22-2024 End: 01-22-2024 Office outpatient visit 25 minutes Naya Luke PICTURES EDITOR Work Phone: [facility] Comment on above: Dizziness (Primary D x); Intracranial hypertension; Class 3 severe obesity due to excess calories with serious comorbidity and body mass index (BMI) of 45.0 to 49.9 in adult ([facility]); Encounter for medication monitoring Start: 01-22-2024 End: 01-22-2024 ambulatory NAYA BUTLER Not Available Start: 01-17-2024 End: 01-17-2024 Patient encounter procedure [facility] Work Phone: Start: 12-24-2023 End: 12-24-2023 ambulatory Alyssa Butterfield MD Work Phone: [facility] Work Phone: Start: 12-24-2023 End: 12-24-2023 Patient encounter procedure Alyssa Butterfield MD Work Phone: [facility] Work Phone: Start: 12-20-2023 Non-patient / Non-visit Alyssa Butterfield MD Work Phone: [facility] Work Phone: Start: 11-20-2023 End: 11-20-2023 Bamboo flowsheet Bonnie Hurdett DO Work Phone: [facility] [address] [facility] Start: 11-20-2023 End: 11-20-2023 Bamboo flowsheet Bonnie Hurdett DO Work Phone: [facility] Start: 11-20-2023 End: 11-20-2023 Office outpatient visit 25 minutes Terrelljose Johnson DO Work Phone: [facility] [place] [address] [facility] Comment on above: Intracranial hyperte nsion (Primary Dx); Dizziness; Class 3 severe obesity due to excess calories with serious comorbidity and body mass index (BMI) of 45.0 to 49.9 in adult ([facility]) Start: 11-20-2023 End: 11-20-2023 ambulatory BONNIE JOHNSON Not Available Start: 11-09-2023 End: 11-09-2023 Patient encounter procedure MD Alyssa Butterfield Work Phone: [facility] [place] Work Phone: Start: 11-09-2023 End: 11-09-2023 ambulatory MD Alyssa Butterfield Work Phone: [facility] Work Phone: Start: 10-23-2023 End: 10-23-2023 Clinisync Result Encounter Naya Luke PICTURES EDITOR Work Phone: [facility] External Department Unsolicited Start: 10-23-2023 End: 10-23-2023 Clinisync Result Encounter Naya Luke PICTURES EDITOR Work Phone: [facility] External Department Unsolicited Start: 10-22-2023 End: 10-22-2023 ambulatory MD Alyssa Butterfield Work Phone: [facility] Work Phone: Start: 10-22-2023 End: 10-22-2023 Patient encounter procedure MD Alyssa Butterfield Work Phone: [facility] Work Phone: Start: 10-18-2023 End: 10-18-2023 Telephone encounter Shima Ruth Ann [facility] [address] [facility] Start: 10-16-2023 End: 10-16-2023 Telephone encounter Naya Butler PICTURES EDITOR Work Phone: [facility] [place] [address] [facility] Start: 10-15-2023 End: 10-15-2023 ambulatory NAYA BUTLER Not Available Start: 10-15-2023 End: 10-15-2023 Office outpatient visit 25 minutes Naya Butler PICTURES EDITOR Work Phone: [facility] [place] [address] [facility] Comment on above: Intracranial hyperte nsion (Primary Dx); Encounter for medication monitoring; Headache, unspecified headache type; Dizziness Start: 10-15-2023 End: 10-15-2023 Bamboo flowsheet Naya Butler PICTURES EDITOR Work Phone: [facility] [address] [facility] Start: 10-15-2023 End: 10-15-2023 Bamboo flowsheet Naya Butler PICTURES EDITOR Work Phone: [facility] Start: 09-27-2023 End: 09-27-2023 ambulatory MD Alyssa Butterfield Work Phone: [facility] Work Phone: Start: 09-27-2023 End: 09-27-2023 Patient encounter procedure MD Alyssa Butterfield Work Phone: [facility] Work Phone: Start: 09-25-2023 End: 09-25-2023 Patient encounter procedure MD Alyssa Butterfield Work Phone: [facility] Work Phone: Start: 09-25-2023 End: 09-25-2023 ambulatory MD Alyssa Butterfield Work Phone: [facility] Work Phone: Start: 09-06-2023 End: 09-06-2023 ambulatory MD Alyssa Butterfield Work Phone: [facility] Work Phone: Start: 09-06-2023 End: 09-06-2023 Patient encounter procedure MD Alyssa Butterfield Work Phone: [facility] Work Phone: Start: 08-29-2023 End: 08-29-2023 ambulatory BONNIE ALEX Not Available Start: 08-27-2023 End: 08-27-2023 ambulatory NAYA BUTLER Not Available Start: 08-16-2023 End: 08-16-2023 ambulatory MD Alyssa Butterfield Work Phone: [facility] Work Phone: Start: 08-16-2023 End: 08-16-2023 Patient encounter procedure MD Alyssa Butterfield Work Phone: [facility] Work Phone: Start: 08-15-2023 End: 08-15-2023 ambulatory MD Alyssa Butterfield Work Phone: [facility] Work Phone: Start: 08-15-2023 End: 08-15-2023 Patient encounter procedure MD Alyssa Butterfield Work Phone: [facility] [place] Work Phone: Start: 08-13-2023 End: 08-13-2023 Emergency department patient visit ALYSSA BUTTERFIELD [facility] Start: 07-31-2023 End: 07-31-2023 ambulatory MD Alyssa Butterfield Work Phone: [facility] Work Phone: Start: 07-31-2023 End: 07-31-2023 Patient encounter procedure MD Alyssa Butterfield Work Phone: [facility] Work Phone: Start: 06-28-2023 End: 06-28-2023 ambulatory MD Alyssa Butterfield Work Phone: [facility] Work Phone: Start: 06-28-2023 End: 06-28-2023 Patient encounter procedure MD Alyssa Butterfield Work Phone: [facility] Work Phone: Start: 06-08-2023 Non-patient / Non-visit MD Susanna Butterfield Work Phone: [facility] Work Phone: Start: 05-30-2023 End: 05-30-2023 ambulatory MD Alyssa Butterfield Work Phone: [facility] Work Phone: Start: 05-30-2023 End: 05-30-2023 Patient encounter procedure MD Alyssa Butterfield Work Phone: [facility] Work Phone: Start: 05-25-2023 End: 05-25-2023 ambulatory MD Alyssa Butterfield Work Phone: [facility] Work Phone: Start: 05-25-2023 End: 05-25-2023 Discharged Recurring MD Alyssa Butterfield Work Phone: [facility] [facility] Start: 05-25-2023 Registered Recurring MD Alyssa Butterfield Work Phone: [facility] [facility] Start: 04-30-2023 End: 04-30-2023 ambulatory MD Alyssa Butterfield Work Phone: [facility] Work Phone: Start: 04-30-2023 End: 04-30-2023 Patient encounter procedure MD Alyssa Butterfield Work Phone: [facility] Work Phone: Start: 04-25-2023 Registered Recurring MD Alyssa Butterfield Work Phone: [facility] [facility] Start: 04-18-2023 End: 04-18-2023 Patient encounter procedure MD Alyssa Butterfield Work Phone: [facility] Work Phone: Start: 04-16-2023 End: 04-16-2023 Patient encounter procedure MD Alyssa Butterfield Work Phone: [facility] Work Phone: Start: 03-13-2023 End: 03-13-2023 ambulatory Alyssa Butterfield Other [employer] Other Start: 03-13-2023 Telephone encounter Alyssa Butterfield [facility] Start: 03-08-2023 End: 03-08-2023 Patient encounter procedure MD Alyssa Butterfield Work Phone: [facility]- Start: 05-17-2022 End: 05-17-2022 ambulatory Alyssa Butterfield Other [employer] Other Start: 05-17-2022 Telephone encounter Alyssa Butterfield [facility] Start: 02-27-2022 End: 02-27-[address] RICCI MULLINS Facility:[facility] Start: 02-27-2022 Office outpatient vi sit 15 minutes Alyssa Butterfield [facility] Start: 02-16-2022 Gynecological examination normal Alyssa Butterfield Other [employer] Other Start: 01-23-2022 Adult health examination Rani Butterfield Other [employer] Other Start: 01-23-2022 Gynecological examination normal Alyssa Butterfield Other [employer] Other Start: 09-06-2021 End: 09-06-[address] [...] 05-15-2024 H/O: section Hx of section Fran Velazquez MD Work Phone: Start: 05-15-2024 Ecg routine ecg w/least 12 lds w/i&r Fran Velazquez MD Work Phone: Start: 03-06-2024 IGP,APTIMA HPV,AGE GDLN Ricci Harpreet DO Work Phone: Start: 03-06-2024 Microscopic observation [Identifier] in Cervix by Cyto stain Yun Naranjo PT Work Phone: Start: 01-22-2024 ALL BASIC METABOLIC PANEL Naya Butler PICTURES EDITOR Work Phone: Start: 11-09-2023 MRI venography MD Alyssa Butterfield Work Phone: Start: 10-23-2023 [facility] CMP (CMP) (FOR [facility] USE) Naya Butler PICTURES EDITOR Work Phone: Start: 09-25-2023 Aerobic microbial culture [...] in Cervix by Cyto stain Naya Butler NP Work Phone: Start: 08-23-2021 Extraction of Products [...] of 2) Zoster Vaccines (1 of 2) [facility] Start: 07-04-2031 DTaP/Tdap/Td Vaccines (3 - Td or Tdap) DTaP/Tdap/Td Vaccines (3 - Td or Tdap) [facility] Start: 03-05-2028 Screening for malignant neoplasm of cervix [facility] Start: 03-06-2027 Screening for malignant neoplasm of cervix [facility] Start: 02-27-2027 Screening for malignant neoplasm of cervix [facility] Start: 03-11-2025 End: 03-11-2025 Patient encounter procedure 03/11/2025 4:00 PM EST Office Visit [facility] [address] [place] [id number] Ricci Mullins DO [address] [place] [address] [facility] Start: 03-07-2025 Yearly Adult Physical Yearly Adult Physical [facility] Start: 10-06-2024 Influenza vaccination [facility] Start: 08-21-2024 End: 08-21-2024 Patient encounter procedure 08/21/2024 1:00 PM EDT Office Visit [address] [place] [address] Fran Velazquez MD [address] [facility] [address] [place] [address] [facility] Start: 07-23-2024 End: 07-23-2024 Patient encounter procedure 07/23/2024 7:45 AM EDT Appointment [place] [id number] [facility] [address] [place] [address] [facility] Start: 07-17-2024 End: 07-17-2025 Thyrotropin [Units/volume] in Serum or Plasma TSH Lab Routine Subclinical hypothyroidism Expected: 07/17/2024 (Approximate), Expires: 07/17/2025 [facility] Comment on above: Expected: 07/17/2024 (Approximate), Expi res: 07/17/2025 Start: 07-17-2024 End: 07-17-2025 Thyroxine (T4) free [Mass/volume] in Serum or Plasma T4, free Lab Routine Subclinical hypothyroidism Expected: 07/17/2024 (Approximate), Expires: 07/17/2025 [facility] Comment on above: Expected: 07/17/2024 (Approximate), Expi res: 07/17/2025 Start: 07-17-2024 End: 07-17-2025 Triiodothyronine (T3) Free [Mass/volume] in Serum or Plasma T3, free Lab Routine Subclinical hypothyroidism Expected: 07/17/2024 (Approximate), Expires: 07/17/2025 [facility] Work Phone: Comment on above: Expected: 07/17/2024 (Approximate), Expi res: 07/17/2025 Start: 07-17-2024 End: 07-17-2025 US Thyroid gland US thyroid Imaging Routine Subclinical hypothyroidism Expected: 07/17/2024, Expires: 07/17/2025 [facility] Comment on above: Expected: 07/17/2024, Expires: Start: 06-04-2024 Patient referral [facility] Work Phone: Start: 05-28-2024 End: 05-28-2024 Patient encounter procedure 05/28/2024 2:30 PM EDT Appointment [facility] [address] [facility] [address] [place] [phone] [facility] Start: 05-19-2024 End: 05-19-2024 Professional / ancillary services management 05/19/2024 8:00 AM EDT Ancillary Procedure [facility] [address] [facility] [address] [place] [phone] [facility] Start: 05-15-2024 End: 05-15-2025 Alanine aminotransferase [Enzymatic activity/volume] in Serum or Plasma by With P-5'-P Alanine Aminotransferase Lab Routine Mixed hyperlipidemia Expected: 05/15/2024, Expires: 05/15/2025 [facility] Work Phone: Comment on above: Expected: 05/15/2024, Expires: Start: 05-15-2024 End: 05-15-2025 Aspartate aminotransferase [Enzymatic activity/volume] in Serum or Plasma by With P-5'-P Aspartate Aminotransferase Lab Routine Mixed hyperlipidemia Expected: 05/15/2024, Expires: 05/15/2025 [facility] Work Phone: Comment on above: Expected: 05/15/2024, Expires: Start: 05-15-2024 End: 05-15-2025 Cardiac stress study Procedure Stress Test Cardiac Services Routine SOB (shortness of breath) on exertion Lightheadedness Palpitations Near syncope Vertigo Expected: 05/15/2024 (Approximate), Expires: 05/15/2025 [facility] Work Phone: Comment on above: Expected: 05/15/2024 (Approximate), Expi res: 05/15/2025 Start: 05-15-2024 End: 05-15-2025 CBC panel - Blood by Automated count CBC Lab Routine Mixed hyperlipidemia SOB (shortness of breath) on exertion Lightheadedness Palpitations Near syncope Vertigo Expected: 05/15/2024, Expires: 05/15/2025 [facility] Work Phone: Comment on above: Expected: 05/15/2024, Expires: Start: 05-15-2024 End: 05-15-2025 Comprehensive metabolic 2000 panel - Serum or Plasma Comprehensive Metabolic Panel Lab Routine Mixed hyperlipidemia SOB (shortness of breath) on exertion Lightheadedness Palpitations Expected: 05/15/2024, Expires: 05/15/2025 [facility] Work Phone: Comment on above: Expected: 05/15/2024, Expires: Start: 05-15-2024 End: 05-15-2025 Holter monitor study Holter Or Event Assistant Cardiac Services Routine Lightheadedness Palpitations Expected: 05/15/2024 (Approximate), Expires: 05/15/2025 [facility] Work Phone: Comment on above: Expected: 05/15/2024 (Approximate), Expi res: 05/15/2025 Start: 05-15-2024 End: 05-15-2025 Lipid 1996 panel - Serum or Plasma Lipid Panel Lab Routine Mixed hyperlipidemia Expected: 05/15/2024, Expires: 05/15/2025 [facility] Work Phone: Comment on above: Expected: 05/15/2024, Expires: Start: 05-15-2024 End: 05-15-2025 Thyrotropin [Units/volume] in Serum or Plasma Thyroid Stimulating Hormone Lab Routine SOB (shortness of breath) on exertion Lightheadedness Expected: 05/15/2024, Expires: 05/15/2025 [facility] Work Phone: Comment on above: Expected: 05/15/2024, Expires: Start: 05-15-2024 End: 05-15-2026 Tilt table study Tilt Table Cardiac Services Routine SOB (shortness of breath) on exertion Lightheadedness Palpitations Near syncope Vertigo Expected: 05/15/2024 (Approximate), Expires: 05/15/2026 [facility] Service Area Work Phone: Comment on above: Expected: 05/15/2024 (Approximate), Expi res: 05/15/2026 Start: 05-15-2024 End: 05-15-2026 US Heart Transthoracic Transthoracic Echo Complete Echocardiography Routine SOB (shortness of breath) on exertion Vertigo Expected: 05/15/2024 (Approximate), Expires: 05/15/2026 [facility] Work Phone: Comment on above: Expected: 05/15/2024 (Approximate), Expi res: 05/15/2026 Start: 04-29-2024 End: 04-29-2024 Patient encounter procedure 04/29/2024 2:40 PM EDT Office Visit [facility] [address] [place] [phone] Naya Butler NP [address] [place] [address] [facility] Start: 03-11-2024 End: 03-11-2024 Patient encounter procedure [facility] [place] [address] [facility] Comment on above: Arrived Start: 03-06-2024 Patient referral [facility] Work Phone: Start: 03-06-2024 End: 03-06-2024 Patient encounter procedure [facility] Comment on above: Arrived Start: 02-05-2024 End: 02-05-2024 ambulatory 02/05/2024 8:30 AM EST Treatment [facility] [address] [place] [phone] Yun Naranjo, PT [address] [place] [address] [facility] Start: 01-23-2024 End: 01-23-2024 ambulatory 01/23/2024 7:30 AM EST Evaluation [facility] [address] [place] [address] Yun Naranjo, PT [address] [place] [address] [facility] Start: 01-22-2024 End: 01-21-2025 Basic metabolic 1998 panel - Serum or Plasma Basic metabolic panel Lab Routine Encounter for medication monitoring Expected: 01/22/2024 (Approximate), Expires: 01/21/2025 [facility] Work Phone: Comment on above: Expected: 01/22/2024 (Approximate), Expi res: 01/21/2025 Start: 01-22-2024 End: 01-22-2024 Patient encounter procedure 01/22/2024 1:00 PM EST Office Visit [facility] [address] [place] [address] Naya Butler, PICTURES EDITOR [address] [place] [address] Arrived [facility] Comment on above: Arrived Start: 01-01-2024 Patient referral [facility] Work Phone: Start: 11-20-2023 End: 11-20-2023 Patient encounter procedure 11/20/2023 8:15 AM EDT Office Visit [facility] [address] [place] [phone] Terrell Johnsonsiobhanlakisha, DO [address] [place] [address] Arrived [facility] Comment on above: Arrived Start: 11-19-2023 End: 11-19-2023 Patient encounter procedure 11/19/2023 12:15 PM EDT [facility] [address] [address] [place] [id number] Alex Bonnie, DO [address] [place] [id number] [facility] Start: 10-16-2023 End: 10-14-2024 MRA Head vessels WO and W contrast IV MR venous head w and wo IV contrast Imaging Routine Intracranial hypertension Expected: 10/16/2023 (Approximate), Expires: 10/14/2024 [facility] Comment on above: Expected: 10/16/2023 (Approximate), Expi res: 10/14/2024 Start: 10-15-2023 End: 10-14-2024 Comprehensive metabolic 2000 panel - Serum or Plasma Comprehensive metabolic panel Lab Routine Encounter for medication monitoring Expected: 10/15/2023 (Approximate), Expires: 10/14/2024 [facility] Work Phone: Comment on above: Expected: 10/15/2023 (Approximate), Expi res: 10/14/2024 Start: 10-07-2023 COVID-19 Vaccine ( season) COVID-19 Vaccine ( season) [facility] Start: 10-07-2023 Influenza vaccination Influenza Vaccine (#1) [facility] Start: 09-25-2023 CSF (PCR) CSF (PCR) [facility] Start: 09-25-2023 Microscopic observation [Identifier] in Unspecified specimen by Gram stain [facility] Start: 09-25-2023 End: 09-25-2023 [facility] Start: 09-25-2023 Cerebrospinal fluid culture [facility] Start: 06-28-2023 Patient referral [facility] Work Phone: Start: 05-07-2023 Diabetes mellitus screening Diabetes Screening [facility] Start: 04-16-2023 Patient referral [facility] Work Phone: Start: 02-27-2015 HPV Vaccines (1 - 3-dose standard series) HPV Vaccines (1 - 3-dose standard series) [facility] Start: 02-27-2009 Screening for malignant neoplasm of cervix HPV/Cotest [facility] Start: 02-27-2007 Hepatitis B Vaccines (1 of 3 - 19+ 3-dose series) Hepatitis B Vaccines (1 of 3 - 19+ 3-dose series) [facility] Start: 02-27-2006 Hepatitis C screening Hepatitis C Screening [facility] Start: 02-27-2001 Varicella vaccination Varicella Vaccines (1 of 2 - 13+ 2-dose series) [facility] Start: 02-27-1989 MMR Vaccines (1 of 1 - Standard series) MMR Vaccines (1 of 1 - Standard series) [facility] Start: 1988 HIV screening HIV Screening [facility] Start: 1988 Lipid panel Lipid Panel [facility] Start: 1988 Yearly Adult Physical Yearly Adult Physical [facility] Bacteria identified in Unspecified specimen by Aerobe culture [facility] Bacteria identified in Unspecified specimen by Anaerobe culture [facility] End: 05-28-2024 Cardiac stress study Procedure [facility] Service Area Work Phone: Comment on above: Once for 1 Occurrences starting 05/29/19 until 05/28/2024 Cell count, cerebros melinda fluid [facility] Cerebrospinal fluid examination [facility] Cytology Cervical or vaginal smear or scraping study Pap Smear Pathology and Cytology Routine Well woman exam with routine gynecological exam Ordered: 03/06/2024 [facility] Work Phone: Comment on above: Ordered: 03/06/2024 Evaluation of cerebrospinal fluid [facility] Fluid sample volume measurement [facility] Human papilloma viru s DNA [Presence] in Unspecified specimen by Probe with amplification HPV DNA probe, amplified Microbiology Routine Well woman exam with routine gynecological exam Ordered: 03/06/2024 [facility] Comment on above: Ordered: 03/06/2024 Meningitis+Encephali tis pathogens DNA and RNA panel - Cerebral spinal fluid by NIMA with non-probe detection [facility] Patient Education [facility] Lumb ar Puncture Discharge Instructions [facility] Work Phone: Patient referral [facility] Work Phone: End: 07-23-2024 US Heart Transthoracic [facility] Service Area Work Phone: Comment on above: Once for 1 Occurrences starting 07/24/19 until 07/23/2024 [facility] Immunizations Immunization Date Immunization Notes Care Provider [facility] 11-18-2022 influenza, injectabl e, quadrivalent, preservative free Seamus Grier MD Work Phone: [facility] 11-18-2022 influenza virus vaccine, unspecified formulation Naya Butler PICTURES EDITOR Work Phone: [facility] 12-10-2021 influenza virus vaccine, split virus (incl. purified surface antigen) Alyssa uBtterfield Other [employer] Other 12-10-2021 influenza virus vaccine, unspecified formulation MD Alyssa Butterfield Work Phone: [facility] 12-10-2021 Influenza, injectabl e, Madin Antonella Canine Kidney, preservative free, quadrivalent Naya Butler PICTURES EDITOR Work Phone: [facility] 07-03-2021 tetanus toxoid, reduced diphtheria toxoid, and acellular pertussis vaccine, adsorbed Naya Butler PICTURES EDITOR Work Phone: [facility] 11-30-2020 COVID-19 mRNA-1273 (Moderna) MD Alyssa Butterfield Work Phone: [facility] 03-18-2020 COVID-19 mRNA-1273 (Moderna) MD Alyssa Butterfield Work Phone: [facility] 02-19-2020 COVID-19 mRNA-1273 (Moderna) MD Alyssa Butterfield Work Phone: [facility] 10-29-2018 influenza, injectabl e, quadrivalent, preservative free Naya Butler PICTURES EDITOR Work Phone: [facility] 12-29-2017 tetanus toxoid, reduced diphtheria toxoid, and acellular pertussis vaccine, adsorbed Naya Butler PICTURES EDITOR Work Phone: [facility] 11-09-2017 influenza, injectabl e, quadrivalent, preservative free Naya Butler PICTURES EDITOR Work Phone: [facility] 10-24-2016 influenza, injectabl e, quadrivalent, preservative free Naya Butler PICTURES EDITOR Work Phone: [facility] 11-03-2014 influenza, seasonal, injectable, preservative free Naya Butler PICTURES EDITOR Work Phone: [facility] 10-27-2013 tetanus and diphther ia toxoids, adsorbed, preservative free, for adult use (5 Lf of tetanus toxoid and 2 Lf of diphtheria toxoid) Alyssa Butterfield Other [facility] Payers Date Payer Category Payer Self-pay [id number] 2022 Managed Care (Private) [facility] [id number] 2022 Private Health Insurance [id number]. [id number] 1988 Unknown [id number] 2.16.840.1.934967.3.579.2. 593 1988 Unknown [id number] 2.16.840.1.216574.3.579.2. 593 1988 Unknown [id number] 2.16.840.1.555923.3.579.2. 593 1988 Unknown [id number] 2.16.840.1.520386.3.579.2. 593 1988 Unknown [id number] 2.16.840.1.988883.3.579.2. 593 1988 Unknown [id number] 2.16.840.1.326707.3.579.2. 593 1988 Unknown [id number] 2.16.840.1.320472.3.579.2. 593 1988 Unknown [id number] 2.16.840.1.081064.3.579.2. 593 1988 Unknown [id number] 2.16.840.1.275391.3.579.2. 593 1988 Unknown [id number] 2.16.840.1.528836.3.579.2. 593 1988 Unknown [id number] 2.16.840.1.141169.3.579.2. 593 1988 Unknown [id number] 2.16.840.1.381444.3.579.2. 1286 1988 Unknown [id number] 2.16.840.1.517340.3.579.2. 1259 1988 Unknown [id number] 2.16.840.1.582580.3.579.2. 1259 1988 Unknown [id number] 2.16.840.1.468328.3.579.2. 1259 1988 Unknown [id number] 2.16.840.1.380701.3.579.2. 1259 1988 Unknown [id number] 2.16.840.1.584199.3.579.2. 1259 1988 Unknown [id number] 2.16.840.1.905558.3.579.2. 9 1988 Unknown [id number] 2.16.840.1.879537.3.579.2. 1259 1988 Unknown [id number] 2.16.840.1.213508.3.579.2. 9 1988 Unknown [id number] 2.16.840.1.957580.3.579.2. 9 1988 Unknown [id number] 2.16.840.1.855845.3.579.2. 9 1988 Unknown [id number] 2.16.840.1.329809.3.579.2. 9 1988 Unknown [id number] 2.16.840.1.088375.3.579.2. 1258 1988 Unknown [id number] 2.16.840.1.194432.3.579.2. 6 1988 Unknown [id number] 2.16.840.1.342879.3.579.2. 1245 1988 Unknown [id number] 2.16.840.1.242326.3.579.2. 4 1988 Unknown [id number] 2.16.840.1.191791.3.579.2. 1243 1988 Unknown [id number] 2.16.840.1.357494.3.579.2. 1244 1959 Private Health Insurance [id number] 1959 Unknown [id number] 1959 Unknown [id number] Private Health Insurance [facility] [employer] [id number] Unknown [id number] Unknown [id number] 2.16.840.1.483450.3.579.2. 531 Unknown [id number] 2.16.840.1.284076.3.579.2. 531 Unknown [id number] 2.16.840.1.663704.3.579.2. 531 Unknown [id number] 2.16.840.1.839842.3.579.2. 531 Social History Date Type Detail Facility Unknown if ever smoked [employer] Other Start: 10-15-2023 End: 05-15-2024 Sex Assigned At [facility] [employer] Other Start: 03-08-2023 End: 05-15-2024 Tobacco smoking status NHIS Never smoked tobacco (finding) [facility] Start: 1990 Sex Assigned At Female [facility] Start: 07-13-2022 End: 05-15-2024 Tobacco use and exposure Smokeless tobacco non-user [facility] Start: 10-15-2023 End: 08-21-2024 Alcoholic beverage intake Current drinker of alcohol (finding) [facility] Start: 10-15-2023 End: 05-15-2024 Alcoholic beverage intake [facility] Start: 06-28-2022 Education 21 [facility] Start: 1990 Sex assigned at Not on file [facility] Start: 12-24-2023 End: 06-18-2024 Sex Female (finding) [facility] Start: 05-15-2024 Alcohol Comment rare [facility] Work Phone: Start: 05-05-2024 End: 05-28-2024 Exposure to SARS-CoV-2 (event) Not sure [facility] Start: 04-30-2024 Sex Female [facility] Clinical Notes 09-13-2020 to 08-21-2024 Fran Velazquez MD - 08/21/2024 11:15 AM EDTPatient Kimberly Grier MD - 07/17/2024 9:30 AM EDT Note Date & Type Note Facility 08-21-2024 History of Presen t illness Narrative CARDIOLOGY OFFICE NOTE Date: 08/21/2024 Patient: Rebecca White Date of : 1990 Primary Physician: Alyssa Butterfield MD REASON FOR VISIT / CHIEF COMPLAINT: Cardiology follow-up post testing HPI: Rebecca White was seen in cardiac evaluation at the [facility] Cardiology office August 21, 2024. The patients problems are listed as in the impression below. Electronic medical records reviewed. Patient returns. She had symptoms of dizziness tachycardia and question of possible POTS. She states that she feels about the same. She underwent testing which fortunately was all negative including tilt table study, echocardiogram, Holter monitor and exercise EKG stress test. Patient denies Chest Pain, SOB, Lightheadedness, Dizziness, TIA or CVA symptoms. No CHF or Edema. No Palpitations. No GI, or Bleeding Issues. No Recent Fever or Chills. She was on metoprolol low-dose and did not feel that this helped and discontinued it. She feels about the same off. Cardiovascular and general review of systems is otherwise negative. A 14-system review is otherwise negative, other than noted. PHYSICAL EXAMINATION: Vitals: 08/21/24 1122 BP: 104/60 Pulse: 82 . IMPRESSION: Cardiovascular status stable Dizziness Tachycardia, sinus Negative tilt table study, ruled out for POTS, 06/2024. Normal LV systolic function, LVEF 60%, echocardiogram, 07/2024. No evidence of valvular heart disease, echocardiogram, 07/2024. Negative ECG exercise treadmill stress test, 05/2024. Negative 48-hour Holter monitor, for 2024. Childhood asthma Adrenal mass, resected, 2002 Carpal tunnel disease, bilateral repair 2022 Depression Herpes zoster Polycystic ovary syndrome D deficiency Idiopathic intracranial hypertension history COVID infection 2022 , 2021 Morbid obesity Otherwise as per assessment below. RECOMMENDATIONS: Patient was reassured of the above findings. She does not have POTS. Would suggest conservative treatment at this time. She should be reasonable to start an exercise dietary weight reduction program. She will talk to her primary care physician regarding possible GLP-1 weight reduction medicines. Hydration was encouraged. [employer]-IOt portal use was encouraged. We will plan to see back on an as-needed basis. Patient will follow up with their primary physician for general care otherwise. The patient knows to contact medical care earlier if need be. ALLERGIES: Patient has no known allergies. MEDICATIONS: Current Outpatient Medications Medication Instructions albuterol 2.5 mg, Every 6 hours PRN cholecalciferol (VITAMIN D-3) 2,000 Units, Daily RT cyanocobalamin (VITAMIN B-12) 1,000 mcg, Daily RT fexofenadine (RADHA) 180 mg, Daily RT fluticasone (Flonase) 50 mcg/actuation nasal spray 1 spray, Daily PRN furosemide (LASIX) 40 mg, Daily metFORMIN XR (GLUCOPHAGE-XR) 500 mg, 2 times daily ondansetron ODT (ZOFRAN-ODT) 4 mg, Every 8 hours PRN venlafaxine XR (EFFEXOR-XR) 37.5 mg, Daily venlafaxine XR (EFFEXOR-XR) 75 mg, Daily RT ELECTROCARDIOGRAM: None this visit CARDIAC TESTING: Tilt table study, 06/2024: Negative study. No evidence of POTS. Echocardiogram, 07/2024: Normal LV function. LVEF 60%. Normal chamber sizes. No significant valvular heart disease. RVSP normal at 25. Exercise ECG treadmill stress test, 05/2024: Normal study. No evidence of exercise provoked ischemia or EKG changes to suggest coronary artery disease. Holter monitor, 48-hour, 05/2024: Normal study. Predominant sinus rhythm. Average heart rate 90 bpm. No significant dysrhythmias noted. LABORATORY DATA: 05/2024: Chem-7, CBC, liver function studies normal. Cholesterol 207, triglyceride 199, HDL 46, LDL 122. TSH 4.11. PROBLEM LIST: Problem List[1] Fran Velazquez MD, FACC [facility] / Cardiology Of Note: [employer] voice recognition dictation software was utilized partially in the preparation of this note, therefore, inaccuracies in spelling, word choice and punctuation may have occurred which were not recognized at the time of signing. Patient was seen and examined with total time of visit including chart preparation, rooming, and chart completion exceeding 40 minutes. Lana Meadows RN am scribing for, and in the presence of Dr. Fran Velazquez MD, FACC. Dr. Fran Meadows MD, FACC, personally performed the services described in the documentation as scribed by Lana Miramontes RN in my presence, and confirm it is both accurate and complete. [1] Patient Active Problem List Diagnosis BMI 45.0-49.9, adult (Multi) Never smoked tobacco Insulin resistance PCOS (polycystic ovarian syndrome) Hyperlipidemia Adrenal mass 1 cm to 4 cm in diameter with no history of malignant neoplasm Vitamin D deficiency Hx of section Lightheadedness SOB (shortness of breath) on exertion Near syncope Anxiety Palpitations Snoring Vertigo Family history of breast cancer Encounter to establish care Tachycardia documented in this encounter [facility] Work Phone: 08-21-2024 Instructions Lana Lucero RN - 08/21/2024 11:15 AM EDT Please bring all medicines, vitamins, and herbal supplements with you when you come to the office. Prescriptions will not be filled unless you are compliant with your follow up appointments or have a follow up appointment scheduled as per instruction of your physician. Refills should be requested at the time of your visit. BMI was above normal measurement. Current weight: 127 kg (280 lb) Weight change since last visit (-) denotes wt loss 2 lbs Weight loss needed to achieve BMI 25: 130.1 Lbs Weight loss needed to achieve BMI 30: 100.1 Lbs Provided instructions on dietary changes Provided instructions on exercise. Follow up ordered as needed only documented in this encounter [facility] Work Phone: 07-17-2024 History of Presen t illness Narrative Rebecca White is a 34 y.o. female Alyssa Butterfield MD presents with chief complaint of Thyroid Problem HPI: [id number] History of Present Illness The patient is a 34-year-old female who presents as a new patient referred by Alyssa Butterfield for subclinical hypothyroidism. She was diagnosed with subclinical hypothyroidism, characterized by mildly elevated TSH levels at 4.1, while her free T4 levels remain within the normal range at 0.98 (normal range 0.76-1.46). 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 She reports no family history of thyroid disease. She has one child and is not interested in having another child at this time. She has not undergone any ultrasound examinations. She has tonsil issues. SOCIAL HISTORY She has 1 child and is not interested in having another child at this time. FAMILY HISTORY No family history of thyroid disease. SUBJECTIVE: MEDICATIONS: Current Outpatient Medications Medication Instructions albuterol HFA 90 mcg/act inhaler 2 puffs, Every 6 hours PRN albuterol 2.5 mg, Every 6 hours PRN busPIRone (BUSPAR) 5 mg, 2 times daily PRN cholecalciferol (VITAMIN D-3) 2,000 Units, Daily cyanocobalamin (VITAMIN B-12) 1,000 mcg, Daily Drospirenone (Slynd) 4 MG tablet 1 tablet, Oral, Daily drospirenone-ethinyl estradiol (Letty, Ocella) 3-0.03 MG tablet 1 tablet, Oral, Daily fexofenadine (RADHA ALLERGY) 180 mg, Daily furosemide (LASIX) 20 mg, Oral, Daily levothyroxine (SYNTHROID, LEVOXYL) 50 mcg, Oral, Daily before breakfast meclizine (ANTIVERT) 25 mg, 3 times daily PRN metFORMIN XR (GLUCOPHAGE-XR) 500 mg, 2 times daily after meals metoprolol succinate XL (TOPROL-XL) 25 mg, Daily RT norethindrone (MICRONOR) 0.35 mg, Oral, Daily venlafaxine XR (EFFEXOR XR) 75 mg, Daily venlafaxine XR (EFFEXOR XR) 37.5 mg, Daily ALLERGIES: Allergies Allergen Reactions Cat Dander Unknown Other Unknown Cigarette Smoke Past Medical History: Diagnosis Date Adrenal mass, left (HCC) Carpal tunnel syndrome, bilateral Childhood asthma (HCC) Depression Family history of breast cancer Hand, foot and mouth disease History of uterine scar from previous surgery Idiopathic intracranial hypertension Infertility, female Irregular menstruation, unspecified Irritable bowel syndrome with diarrhea Obesity (BMI 30-39.9) Other specified abnormal findings of blood chemistry PCOS (polycystic ovarian syndrome) Seasonal allergies Varicella zoster Vitamin D deficiency Past Surgical History: Procedure Laterality Date ADRENAL GLAND SURGERY 2002 mass removed, benign; partial adrenalectomy CARPAL TUNNEL RELEASE Right 07/05/2022 Dr Foley CARPAL TUNNEL RELEASE Left 08/02/2022 Dr Foley SECTION, CLASSIC 2021 IR LUMBAR PUNCTURE VAGINAL DELIVERY WISDOM TOOTH EXTRACTION REVIEW OF SYMPTOMS: 14 POINT OF SYSTEM REVIEWED AND NEGATIVE OBJECTIVE: Visit Vitals Pulse 89 Resp 18 Ht 5' 5 Wt 278 lb SpO2 95% BMI 46.26 kg/m OB Status Having periods Smoking Status Never BSA 2.4 m Physical Exam Constitutional: Appearance: Normal appearance. She is normal weight. HENT: Head: Normocephalic and atraumatic. Right Ear: External ear normal. Nose: Nose normal. Mouth/Throat: Pharynx: Oropharynx is clear. Eyes: Extraocular Movements: Extraocular movements intact. Pupils: Pupils are equal, round, and reactive to light. Cardiovascular: Rate and Rhythm: Normal rate and regular rhythm. Pulmonary: Effort: Pulmonary effort is normal. Abdominal: General: Abdomen is flat. Palpations: Abdomen is soft. Musculoskeletal: General: Normal range of motion. Skin: General: Skin is warm. Neurological: General: No focal deficit present. Mental Status: She is alert. Psychiatric: Mood and Affect: Mood normal. Behavior: Behavior normal. ASSESSMENT AND PLAN: Assessment/Plan Diagnoses and all orders for this visit: Subclinical hypothyroidism - T3, free; Future - T4, free; Future - TSH; Future - US thyroid; Future Vitamin D deficiency Encounter for dietary consultation Class 2 obesity due to excess calories without serious comorbidity with body mass index (BMI) of 36.0 to 36.9 in adult Diet and exercise reviewed with the patient Assessment & Plan 1. Subclinical hypothyroidism: - TSH mildly high at 4.1, free T4 within normal limits at 0.98, TG antibody positive for Samson's disease at 1.4. - Started on levothyroxine 50 mcg daily about a month ago. - Discussed that it takes 3 to 4 months to assess the effectiveness of the current dose. - Ordered an ultrasound of the thyroid to check for any nodules; if nodules are found and are large, a biopsy may be considered. Follow-up: The patient will follow up in 3 to 4 months. documented in this encounter [facility] 06-04-2024 Evaluation note Diagnosis Onset Date Resolution Abnormal thyroid blood test acute June 04, 2024 11:17am Dizziness acute July 30 1:03pm Intracranial hypertension acute July 30, 2024 1:03pm Obesity acute July 30 1:03pm [facility] Work Phone: 1(387) 238-147404-10-2025 History of Present illness Narrative* Fran Velazquez MD - 05/15/2024 1:00 PM EDT CARDIOLOGY CONSULTATION NOTE Patient: Rebecca White Date [...] Hydration was encouraged. Exercise dietary walking program. [employer]-IO[employer] portal use was encouraged. We will plan to see back following the above testing with Laboratory Studies and ECG as noted. Patient will follow up with their primary physician for general care. The patient knows to contact medical care earlier if need be. HPI: Rebecca White was seen in cardiac evaluation at the [facility] Cardiology office May 15, 2024. The [...] SOCIAL HISTORY: . 1 child. Works at [employer]. Stands much of the day. Never smoked. [...] visit. LABORATORY DATA: None this visit. Fran Velazquez MD, FACC [facility] / Cardiology Of Note: [employer] voice recognition dictation software was utilized partially in the preparation of this note,therefore, inaccuracies in spelling, word choice and punctuation may have occurred which were not recognized at the time of signing. Patient was seen and examined with total time of visit including chart preparation, rooming, and chart completion exceeding 40 minutes. ILana RN am scribing for, and in the presence of Dr. Fran Velazquez MD, FACC. IDr. Fran MD, FACC, personally performed the services described in the documentation as scribed by Lana Miramontes RN in my presence, and confirm it is both accurate and complete. [facility]: 1(336) 439-810604-10-2025 Instructions* Patient Instructions* Lana Lucero RN - 05/15/2024 1:00 PM [...] Consider getting compression socks [facility] Work Phone: 1(869) 290-207503-27-2025 Evaluation note* Diagnosis Onset Date Resolution Status Admit Date Dizziness of unknown etiology acute May 01, 2024 2:47pm Intracranial hypertension acute May 01, 2024 2:47pm Sinusitis, acute maxillary acute May 01, 2024 2:47pm Abnormal thyroid blood test acute June 04, 2024 11:17am Dizziness acute July 30 1:03pm Encounter for medication monitoring acute July 30, 2024 1:03pm Intracranial hypertension acute July 30, 2024 1:03pm Obesity acute July 30 1:03pm [facility] Work Phone: 1(248) 231-970702-25-2025 Telephone encounter Note* Telephone Encounter - Naya Butler NP - 04/01/2024 9:23 AM EST Received a message from vestibular therapy stating the patient does not seem very interested/committed to therapy. Previously, she received 1 session of therapy and stopped coming stating work schedule challenge. She was rescheduled this am and sent a text 20 min before visit claiming she had stomach ache. [id number] Miscellaneous Notes* Telephone Encounter - Naya Butler NP - 04/01/2024 9:23 AM EST Received a message from vestibular therapy stating the patient does not seem very interested/committed to therapy. Previously, she received 1 session of therapy and stopped coming stating work schedule challenge. She was rescheduled this am and sent a text 20 min before visit claiming she had stomach ache. [id number] History of Present illness Narrative* Yun Naranjo, PT - 04/01/2024 8:50 AM EST Images from the original note were not included. 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 Neck periodically painful, Has not [...] head at arms length with [place] Markers Smooth Pursuit: Pass, Performed Monocularly Negative [...] discuss today because pt cancelled 30 min beforesession Gentle rom neck/arms Postural balance Heat neck [...] AIB-VAM Director Vestibular Rehabilitation documented in this encounterResearch Psychiatric [id number] Evaluation note* Diagnosis Onset Date Resolution Status Admit Date Intracranial hypertension acute March 27, 2024 9:23am Dizziness of unknown etiology acute May 01, 2024 2:47pm Intracranial hypertension acute May 01, 2024 2:47pm Sinusitis, acute maxillary acute May 01, 2024 2:47pm Abnormal thyroid blood test acute June 04, 2024 11:17am [facility] Work Phone: 1(144) 645-347002-06-2025 Telephone encounter Note* Telephone Encounter - Naya Butler NP - 03/13/2024 3:37 PM EST I reviewed. Thank you! [facility] [id number] Miscellaneous Notes* Telephone Encounter - Naya Butler NP - 03/13/2024 3:37 PM EST I reviewed. Thank you! * Telephone Encounter - Shima Vallecillo MA - 03/13/2024 12:29 PM EST Routed to you and in Media. * Telephone Encounter - Naya Butler NP - 03/13/2024 11:36 AM EST Referral placed. * Telephone Encounter - Brant Raya MA - 03/12/2024 11:10 AM EST The patient calls in stating that she was told to continue her PT and her PT has . Needs a new order sent to [facility]. * Telephone Encounter - Shima Vallecillo MA - 03/12/2024 10:41 AM EST Requested. * Telephone Encounter - Naya Butler NP - 03/11/2024 5:41 PM EST Can you please request record of the patient's most recent ophthalmology note for review? documented in this encounterNOParkland Health [id number] Telephone encounter Note* Telephone Encounter - Shima Vallecillo MA - 03/13/2024 12:29 PM EST Routed to you and in Media. [facility] [id number] Telephone encounter Note* Telephone Encounter - Naya Butler NP - 03/13/2024 11:36 AM EST Referral placed. [facility] [id number] Telephone encounter Note* Telephone Encounter - Brant Raya MA - 03/12/2024 11:10 AM EST The patient calls in stating that she was told to continue her PT and her PT has . Needs a new order sent to [facility] PT. [facility] Psychiatric [id number] Telephone encounter Note* Telephone Encounter - Shima Vallecillo MA - 03/12/2024 10:41 AM EST Requested. [facility] Psych[facility] [id number] Telephone encounter Note* Telephone Encounter - Naya Butler NP - 03/11/2024 5:41 PM EST Can you please request record of the patient's most recent ophthalmology note for review? [facility] Psychiatric [id number] Evaluation note* Diagnosis Onset Date Resolution Status Admit Date Intracranial hypertension acute March 06, 2024 9:23am Panic attacks acute February 9:23am Intracranial hypertension acute March 27, 2024 9:23am Dizziness of unknown etiology acute May 01, 2024 2:47pm Intracranial hypertension acute May 01, 2024 2:47pm Sinusitis, acute maxillary acute May 01, 2024 2:47pm Abnormal thyroid blood test acute June 04, 2024 11:17am [facility] Work Phone: 1(341) 174-458301-30-2025 History of Present illness Narrative* Padmaja Astorga LPN - 03/06/2024 8:30 AM EST Reason for Appointment: Patient ID: Rebecca White [...] nursing note reviewed. Exam conducted with a metal furniture polisher present. Vitals: Estimated body mass index is [...] of a continuous control. Slynd sent to [facility] and patient given handout in regards to pharmacy information. Orders Placed This Encounter Procedures HPV DNA probe, amplified Follow Up: Patient is to return in one year for annual unless needed otherwise. Documented by Padmaja Astorga LPN on behalf of: Ricci Mullins DO documented in this encounterResearch Psychiatric [id number] Evaluation note* Diagnosis Onset Date Resolution Status Admit Date Intracranial hypertension acute February 14, 2024 11:20am Sinusitis, acute maxillary acute February 14, 2024 11:20am Dizziness of unknown etiology acute February 26, 2024 9:58am Intracranial hypertension acute February 26, 2024 9:58am Intracranial hypertension acute March 06, 2024 9:23am Panic attacks acute February 9:23am Intracranial hypertension acute March 27, 2024 9:23am Dizziness of unknown etiology acute May 01, 2024 2:47pm Intracranial hypertension acute May 01, 2024 2:47pm [facility] Work Phone: 1(376) 127-713112-31-2024 History of Present illness Narrative* Yun Naranjo, PT - 02/05/2024 8:30 AM EST Images from the original note were not included. Rebecca Christopher [id number] 02/05/24 Subjective: Phone consult 01/21 33 yof sent to PT by DR Butler for dizziness Onset of dizziness in April Unsure of cause Sometimes eyes/head spin and wobbly No specific time is worst Moving head brings it on Hard to focus eyes especially when moving head Hearing seems fine ENT Dr Seymour said its fine, hearing test ok Occasional [...] head at arms length with [place] Mark[place] Smooth Pursuit: Pass, Performed Monocularly Negative [...] AIB-VAM Director Vestibular Rehabilitation documented in this encounterResearch Psychiatric [id number] History of Present illness Narrative* Yun Naranjo, PT - 01/23/2024 7:30 AM EST Images from the original note were not included. Rebecca White [id number] 01/22/24 Subjective: Phone consult 01/21 33 yof sent to PT by DR Butler for dizziness Onset of dizziness in April Unsure of cause Sometimes eyes/head spin and wobbly No specific time is worst Moving head brings it on Hard to focus eyes especially when moving head Hearing seems fine ENT Dr Seymour said its fine, hearing test ok Occasional [...] head at arms length with [place] Mark[place] Smooth Pursuit: Pass, Performed Monocularly Negative [...] this POC medically necessary. Please sign below. Mounika Aguilar, OCS, COMT, AIB-VAM Director Vestibular Rehabilitation documented in this encounterResearch Psychiatric [id number] Instructions* Patient Instructions* Naya Butler NP - 01/22/2024 1:00 PM EST - Referral to vestibular therapy ([facility]) - Check labs documented in this [facility]12-12-2024 Evaluation note* Diagnosis Onset Date Resolution Status [...] 2024 9:23am Panic attacks acute February 9:23am [facility] Work Phone: 1(991) 377-585611-18-2024 Evaluation note* Diagnosis Onset Date Resolution Status Admit Date Intracranial hypertension acute December 24, 2023 3:19pm PCOS (polycystic ovarian syndrome) acute December 23, 2 024 3:19pm Hand, foot and mouth disease inactiv e December 24, 2023 3:19pm Anxiety acute January 17, 2024 3:29pm Intracranial hypertension acute January 17, 2024 3:29pm Sinusitis, acute maxillary acute January 17, 2024 3:29pm [facility] Work Phone: 1(746) 773-693811-18-2024 Evaluation note* Diagnosis Onset Date Resolution Status [...] acute maxillary acute February 14, 2024 11:20am [facility] Work Phone: 1(238) 115-356211-18-2024 Evaluation note* Diagnosis Onset Date Resolution Status [...] 2024 9:58am Panic attacks acute February 9:23am [facility] Work Phone: 1(743) 897-532110-15-2024 History of Present illness Narrative* Bonnie Johnson, DO - 11/20/2023 8:15 AM EDT Images from the original note were not included. Chief complaint: Headaches Subjective Rebecca White is a 33 y.o. [...] Problems Brother Breast cancer Maternal Grandmother Darcy Rosa Elena Uterine cancer Maternal Grandmother Darcy Rosa Elena Cancer Maternal Grandmother Darcy Rosa Elena Uterine cancer Paternal Grandmother Kim Maya Cancer [...] wrist extensors , wrist flexor , and development architect strength 5/5. LUE strength deltoid , biceps , triceps , wrist extensors , wrist flexor , and development architect strength 5/5. RLE strength iliopsoas, quadriceps, tibialis [...] reflex 1+. LLE Knee reflex 1+. Coordination: Ygfkic-tv-trpw testing normal. Rapid alternating movements are normal. Gait: Normal. Review and summary of old records: MR venogram on 11/09/2023 at [facility]: No evidence of venous thrombosis. No acute [...] reviewed the patient's appointment note from [facility] on 09/03/23. Levi, OD identified very mild sixth cranial nerve palsy with no visual field loss or disc edema. VNG at [facility] on 08/29/23: There is evidence of significant peripheral vestibular dysfunction. Positive Chadron-Hallpike maneuver. 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 Dizziness The patient reports episodic, provoked [...] patient has also been evaluated by Dr. Seymour (ENT) and was recommended to have a vestibular evaluation in [place], [place]. PLAN: - I reviewed VNG results [...] new or worsening symptoms. documented in this encounterResearch Psychiatric [id number] Telephone encounter Note* Telephone Encounter - Naya Butler NP - 10/18/2023 10:42 AM EDT Acknowledged. Thank you! [facility] Psychiatric [id number] Miscellaneous Notes* Telephone Encounter - Naya Butler NP - 10/18/2023 10:42 AM EDT Acknowledged. Thank you! * Telephone Encounter - Shima Vallecillo MA - 10/18/2023 10:21 AM EDT Called PT to ask about the [place] request for Medical information from [facility], PT told me to disregard paperowrk as she is getting it filled out by her PCP. documented in this encounterResearch Psychiatric [id number] Telephone encounter Note* Telephone Encounter - Shima Vallecillo MA - 10/18/2023 10:21 AM EDT Called PT to ask about the [place] request for Medical information from [facility], PT told me to disregard paperowrk as she is getting it filled out by her PCP. Research Psychiatric [id number] Telephone encounter Note* Telephone Encounter - Naya Butler NP - 10/16/2023 6:05 PM EDT I will review this. Thank you! [facility] Psychiatric [id number] Miscellaneous Notes* Telephone Encounter - Naya Butler NP - 10/16/2023 6:05 PM EDT I will review this. Thank you! * Telephone Encounter - Naya Butler NP - 10/16/2023 9:55 AM EDT The patient states she had an eye exam at [facility] recently for IIH. Can you please request record of this for me to review? documented in this encounterResearch Psychiatric [id number] Telephone encounter Note* Telephone Encounter - Naya Butler NP - 10/16/2023 9:55 AM EDT The patient states she had an eye exam at [facility] recently for IIH. Can you please request record of this for me to review? Research Psychiatric [id number] History of Present illness Narrative* Naya Butler [...] the labs completed because she states [facility] did not receive an order for them. She is taking acetazolamide 250 mg by mouth twice a day. Since starting acetazolamide, the patient reports multiple side effects including fatigue, nausea, a jtak-ulp-ssscaia sensation in the feet when attempting to [...] resolves. It is primarily triggered by quick wbtz-vr-uktu head movements. However, it canalso be provoked [...] to lights or sounds. She has tried ndjb-cru-qxebsuv medications for her headaches, and these provide [...] wrist extensors , wrist flexor , and development architect strength 5/5. LUE strength deltoid , biceps , triceps , wrist extensors , wrist flexor , and development architect strength 5/5. RLE strength iliopsoas, quadriceps, tibialis [...] reflex 1+. LLE Knee reflex 1+. Coordination: Tneyac-wv-vccn testing normal. Rapid alternating movements are normal. [...] I reviewed the patient's appointment note from [facility] on 09/03/23. Levi, ROYCE identified very mild sixth cranial nerve palsy with no visual field loss or disc edema. VNG at [facility] on 08/29/23: There is evidence [...] tinnitus. She is an established patient at [facility] and plans to follow with them regularly [...] patient has also been evaluated by Dr. Seymour (ENT) and was recommended to have a vestibular evaluation in [place], [place]. PLAN: - I reviewed VNG results [...] NP [facility] Advanced [facility] documented in this encounterResearch Psychiatric [id number] Instructions* Patient Instructions* Naya Butler NP - 10/15/2023 3:40 PM EDT - Stop acetazolamide - Start furosemide 20 mg by mouth once a day - Check labs documented in this encounterResearch Psychiatric [id number] Evaluation note* Diagnosis Onset Date Resolution Status Admit Date Intracranial hypertension acute September 25, 2023 7:41am Headache acute September 26, 2 024 1:27pm Intracranial hypertension acute September 27, 2023 1:27pm Headache acute October 1:39pm Intracranial hypertension acute October 22, 2023 1:39pm [facility] Work Phone: 1(841) 176-453505-23-2024 Hospital Discharge instructionsAmbulatory Orders* Referral to Neurology Time Frame: 06/28/23, Location: None Selected [facility] Work Phone: 1([phone]) 180-820601-23-2023 Evaluation note* Encounter Date Diagnosis Assessment Notes Treatment Notes Treatment Clinical Notes Feb, Pain in right wrist (ICD-10 - M25.531) Feb, Pain in left wrist (ICD-10 - M25.532) [facility] Other 07-17-2022 NoteOPERATIVE NOTE OPERATION DATE: 08/22/2021 PROCEDURE: Primary low transverse section. PREOPERATIVE DIAGNOSIS: 1. Intrauterine at 40 and 5/7 days. 2. Failure to induce, Cervidil x2. POSTOPERATIVE DIAGNOSIS: 1. Intrauterine at 40 and 5/7 days. 2. Failure to induce, Cervidil x2. ANESTHESIA: Spinal with Duramorph. SURGEON: Ricci Mullins D.O. MANAGER STORE: [facility] URINE OUTPUT: Yellow and clear. [...] to the Recovery Room in stable condition. [facility] Signed and Approved by: DR RICCI MULLINS . 08/26/2021 08:15:00[facility]07-17-2022 NoteDISCHARGE SUMMARY DISCHARGE DATE: 09/09/2021 PRIMARY DIAGNOSES: [...] when pain free and no longer on narcotics.[facility]08-09-2021 NoteHNO ID: [id number] Author: Maurice Bonilla APRN.CNP Service: ? Author [...] Total Time Spent: 5 minutes Maurice Bonilla APRN.PUBLIC HEALTH NUTRITIONIST September 13, 2020 11:59 [facility] noteNo Information [facility] Other Evaluation note* Diagnosis Onset Date Resolution Status Acute middle ear effusion ac [place] Vertigo acute Vertigo [facility] Work Phone: Evaluation note* Diagnosis Onset Date Resolution Status Acute middle ear effusion ac [place] Vertigo acute Vertigo acute Acute middle ear effusion ac [place] Vertigo acute [facility] Work Phone: Evaluation note* Diagnosis Onset Date Resolution Status Acute middle ear effusion ac [place] Vertigo acute Vertigo acute Acute middle ear effusion ac [place] Vertigo acute Vertigo acute Dizziness of unknown etiology acute [facility] Work Phone: Evaluation note* Diagnosis Onset Date Resolution Status Vertigo acute Dizziness of unknown etiology acute [facility] Work Phone: Evaluation note* Diagnosis Onset Date Resolution Status Vertigo acute Dizziness of unknown etiology acute Bronchitis acute [facility] Work Phone: Evaluation note* Diagnosis Onset Date Resolution Status Dizziness of unknown etiology acute Bronchitis acute Headache acute Intracranial hypertension ac [facility] Work Phone: Evaluation note* Diagnosis Onset Date Resolution Status Dizziness of unknown etiology acute Bronchitis acute Headache acute Intracranial hypertension ac [place] Anxiety acute Headache acute Intracranial hypertension ac [facility] Work Phone: Evaluation note* Diagnosis Onset Date Resolution Status Bronchitis acute Headache acute Intracranial hypertension ac [place] Anxiety acute Headache acute Intracranial hypertension ac [place] Intracranial hypertension ac [facility] Work Phone: Evaluation note* Diagnosis Onset Date Resolution Status Bronchitis acute Headache acute Intracranial hypertension ac [place] Anxiety acute Headache acute Intracranial hypertension ac [place] Intracranial hypertension ac [place] Headache acute Intracranial hypertension ac [facility] Work Phone: Evaluation note* Diagnosis Onset Date Resolution Status Headache acute Intracranial hypertension ac [place] Anxiety acute Headache acute Intracranial hypertension ac [place] Intracranial hypertension ac [place] Headache acute Intracranial hypertension ac [place] Headache acute Intracranial hypertension ac [facility] Work Phone: Evaluation note* Diagnosis Intracranial hypertension- Primary Benign intracranial hypertension Dizziness Dizziness and giddiness Class 3 severe obesity due to excess calories with serious comorbidity and body mass index (BMI) of 45.0 to 49.9 in adult ([facility]) documented in this encounter [facility] HealthcareEvaluation note* Diagnosis Dizziness- Primary Dizziness and giddiness Intracranial hypertension Benign intracranial hypertension Class 3 severe obesity due to excess calories with serious comorbidity and body mass index (BMI) of 45.0 to 49.9 in adult ([facility]) Encounter for medication monitoring Encounter for therapeutic [...] (BMI) of 45.0 to 49.9 in adult ([facility]) Encounter for medication monitoring Encounter for therapeutic drug monitoring documented in this encounter [facility] HealthcareEvaluation note* Diagnosis Dizziness- Primary Dizziness and [...] Tachycardia Unspecified tachycardia documented in this encounter [facility] Work Phone: Evaluation note* Diagnosis SOB (shortness of breath) on exertion Shortness of breath Lightheadedness Dizziness and giddiness Palpitations Near syncope Vertigo Dizziness and giddiness documented in this encounter [facility] Work Phone: Evaluation note* Diagnosis Subclinical hypothyroidism- Primary Other specified acquired hypothyroidism Vitamin D deficiency Encounter for dietary consultation Class 2 obesity due to excess calories without serious comorbidity with body mass index (BMI) of 36.0 to 36.9 in adult documented in this encounter [facility] HealthcareEvaluation note* Diagnosis SOB (shortness of breath) on exertion Shortness of breath Vertigo Dizziness and giddiness documented in this encounter [facility] Work Phone: Evaluation note* Diagnosis Lightheadedness Dizziness and giddiness Mixed hyperlipidemia SOB (shortness of breath) on exertion Shortness of breath Tachycardia Unspecified tachycardia Palpitations PCOS (polycystic ovarian syndrome) Polycystic ovaries Snoring Other dyspnea and respiratory abnormality Never smoked tobacco BMI 45.0-49.9, adult (Multi) documented in this encounter [facility] Work Phone: History general Narrative - Reported* Type Description Date Medical History BMI 40.0-44.9, adult Medical History PCOS (polycystic ovarian syndrom e) Medical History Amenorrhea, secondary Medical History Bronchitis Medical History Depression Surgical History ADRENALECTOMY, TOTAL, LEFT 05/07 014 Hospitalization History C SECTION [facility] Other Hispcmj general Narrative - Reported* Type Description Date Medical History BMI 40.0-44.9, adult Medical History PCOS (polycystic ovarian syndrom e) Medical History Amenorrhea, secondary Medical History Bronchitis Medical History Depression Surgical History ADRENALECTOMY, TOTAL, LEFT 05/07 014 Surgical History Carpal tunnel bilateral 06/2022 Hospitalization History C SECTION [facility] Other Hospital Discharge instructionsAmbulatory Orders* Referral to Psychiatry Time Frame: 03/06/24, Location: None [facility] Work Phone: Hospital Discharge instructionsAmbulatory Orders* Referral to Endocrinology Time Frame: 06/04/24, Location: None [facility] Work Phone: Reason for referral (narrative)No reason for referral [facility] Work Phone: reason for visit Narrative* Rehabilitation - Outpatient (Routine) - Pending Review Specialty Diagnoses / Procedures Referred By Harry bernard Referred To Contact Physical Therapy Diagnoses Dizziness Procedures [place] OFFICE/OUTPATIENT [facility] Naya Butler, LESLIE [address] [facility] [address] [place] [phone] Phone: tel: Yun Naranjo, PT [address] [place] [address] Phone: tel: fax: Referral ID Status Reason Start Date Expiration Date Visits Requested Visits Authorized [id number] Pending Review Consult and Treat 07/20/2024 1 1 [facility] HealthcareReason for visit Narrative* Rehabilitation - Outpatient (Routine) - Authorized Specialty Diagnoses / Procedures Referred By Contac t Referred To Contact Physical Therapy Diagnoses Dizziness Procedures [place] OFFICE/OUTPATIENT [facility] Naya Butler, PICTURES EDITOR [address] [place] [phone] Phone: tel: Yun Naranjo, PT [address] [place] [address] Phone: tel: fax: Referral ID Status Reason Start Date Expiration Date Visits Requested Visits Authorized [id number] Authorized Consult and Treat 01/22/2024 02/05/2024 40 40 [facility] HealthcareReason for visit Narrative* Rehabilitation - Outpatient (Routine) - Pending Review Specialty Diagnoses / Procedures Referred By Contac t Referred To Contact Physical Therapy Diagnoses Dizziness Procedures [place] OFFICE/OUTPATIENT [facility] 60 MINUTES Naya Butler, PICTURES EDITOR [address] [place] [phone] Phone: tel: Yun Naranjo, PT [address] [place] [address] Phone: tel: Referral ID Status Reason Start Date Expiration Date Visits Requested Visits Authorized [id number] Pending Review Consult and Treat 03/13/2024 09/09/2024 1 1 [facility] HealthcareReason for visit Narrative* Cardiac Stress Testing (Routine) - Authorized Specialty Diagnoses / Procedures Referred By Contac t Referred To Contact Cardiology Diagnoses SOB (shortness of breath) on exertion Lightheadedness Palpitations Near syncope Vertigo Procedures Stress Test NC CV STRS TST XERS&/OR RX CONT ECG TRCG ONLY Fran Velazquez MD [address] [facility] [address] [place] [address] Phone: tel: fax: Referral ID Status Reason Start Date Expiration Date V isits Requested Visits Authorized [id number] Authorized 05/15/2024 05/15/2025 1 1 [facility] Work Phone: Reason for visit Narrative* CV Imaging (Routine) - Authorized Specialty Diagnoses / Procedures Referred By Contac t Referred To Contact Cardiology Diagnoses SOB (shortness of breath) on exertion Vertigo Procedures Transthoracic Echo Complete [place] ECHO TTHRC R-T 2D W/WOM-MODE COMPL SPEC&COLR D Fran Velazquez MD [address] [facility] [address] [place] [address] Phone: tel: fax: Referral ID Status Reason Start Date Expiration Date Visits Requested Visits Authorized [id number] Authorized Perform Procedure 05/15/2024 05/15/2025 1 1 [facility] Work Phone: Summary Purpose Family History No Family History Records Found Relationship Condition Age at Onset Recorded Date/T morgan father Diabetes mellitus Unknown Alcoholism Unknown Advance Directives No Advanced Directives Records Found Advance Directive Response Recorded Date/ Time Advance Directives No October 8:34am Advance Directive Response Recorded Date/ Time Advance Directives No October 7:34am Advance Directive Response Recorded Date/ Time Advance Directives No July 30 2:22pm Reason for Referral Reason 03/16/22 lena off ice Diagnosis 1 Pain in right wrist (M25.531) Referral Organization [facility] naveen Referring Provider First Name Alyssa Referring Provider Last Name Scout Referring Provider Specialty Family [facility] Referred Organization [facility] Referred Provider Sayra Foley Referred Address ,[place], [place],[address] Referred Provider Specialty Orthopedic S urgery Referral [...] Naya Butler NP [address] [place] [address] [facility] Scheduling [address] [place] [address] Referral ID Status Reason Start Date Expiration Date V isits Requested Visits Authorized [id number] Pending Review 10/16/2023 04/13/2024 1 1 Chief [...] January 17, 2024 3:29pm Sinus infection/dizziness February 13 2 025 11:20am work accommodations February 26, 2024 9 :58am FMLA-HIGH RISK March 06, 2024 9 :23am FMLA Paperwork-HIGH RISK March 27, 2024 9:23am Reason for Visit Admit Date Anxiety January 17, 2024 3:29pm Intracranial hypertension January 17, 2024 3:29pm Sinusitis, acute maxillary January 3:29pm Intracranial hypertension February 13 2 025 11:20am Sinusitis, acute maxillary February [...] Visit Admit Date Intracranial hypertension February 13 11:20am Sinusitis, acute maxillary February 14, 2024 11:20am Dizziness of unknown etiology February 252024 9:58am Intracranial hypertension February 26, 2024 9:58am Intracranial hypertension March 06, 2024 9:23am Panic attacks March 06, 2024 9 :23am Intracranial hypertension March 27, 2024 9:23am Dizziness of unknown etiology April 2:47pm Intracranial hypertension May 01 2:47pm Chief Complaint Admit Date FMLA-HIGH RISK March 06, 2024 9 :23am FMLA Paperwork-HIGH RISK March 27, 2024 9:23am FMLA/Sick-HIGH RISK May 01, 2024 2:4 7pm Discuss BW-HIGH RISK June 04, 2024 11 :17am Reason for Visit Admit Date Intracranial hypertension March 06, 2024 9:23am Panic attacks March 06, 2024 9 :23am Intracranial hypertension March 27, 2024 9:23am Dizziness of unknown etiology April 2:47pm Intracranial hypertension May 01 2:47pm Sinusitis, acute maxillary May 01, 2 025 2:47pm Abnormal thyroid blood test June 04, 2024 11:17am Chief Complaint Admit Date FMLA Paperwork-HIGH RISK March 27, 2024 9:23am FMLA/Sick-HIGH RISK May 01, 2024 2:4 7pm Discuss BW-HIGH RISK June 04, 2024 11 :17am R06.02 R42 R00.2 R55 June 17, 2024 8:45 am Reason for Visit Admit Date Intracranial hypertension March 27, 2024 9:23am Dizziness of unknown etiology April 2:47pm Intracranial hypertension May 01 2:47pm Sinusitis, acute maxillary May 01, 2 025 2:47pm Abnormal thyroid blood test June 04, 2024 11:17am Chief Complaint Admit Date FMLA/Sick-HIGH RISK May 01, 2024 2:4 7pm Discuss BW-HIGH RISK June 04, 2024 11 :17am R06.02 R42 R00.2 R55 June 17, 2024 8:45 am 3 month f/u July 30, 2024 1:03 pm Reason for Visit Admit Date Dizziness of unknown etiology April 2:47pm Intracranial hypertension May 01 2:47pm Sinusitis, acute maxillary May 01, 2 025 2:47pm Abnormal thyroid blood test June 04, 2024 11:17am Dizziness July 30, 2024 1:03 pm Encounter for medication monitoring July 30, 2024 1:03pm Intracranial hypertension July 30 1:03pm Obesity July 30, 2024 1:03 pm Chief Complaint Admit Date Discuss BW-HIGH RISK June 04, 2024 11 :17am R06.02 R42 R00.2 R55 June 17, 2024 8:45 am 3 month f/u July 30, 2024 1:03 pm HIGH RISK/fmla concerns August 04, 2024 1:42pm Reason for Visit Admit Date Abnormal thyroid blood test June 04, 2024 11:17am Dizziness July 30, 2024 1:03 pm Intracranial hypertension July 30 1:03pm Obesity July 30, 2024 1:03 pm Additional Source Comments INFORMATION SOURCE (unrecogn ized section and content) DATE CREATED AUTHOR 07/26/2017 [facility] [place] [facility] DATE CREATED AUTHOR AUTHOR'S ORGANIZ ATION 02/24/2021 [facility] DATE CREATED AUTHOR AUTHOR'S ORGANIZ ATION 03/04/2022 [facility] [place] [facility] DATE CREATED AUTHOR AUTHOR'S ORGANIZ ATION 08/21/2023 [facility] DATE CREATED AUTHOR AUTHOR'S ORGANIZ ATION 07/29/2024 [facility] EPIC DATE CREATED AUTHOR AUTHOR'S ORGANIZ ATION 07/31/2024 [facility] DATE CREATED AUTHOR AUTHOR'S ORGANIZ ATION 08/23/2024 [facility] DATE CREATED AUTHOR AUTHOR'S ORGANIZ ATION 08/25/2024 [facility] REASON FOR VISIT (unrecogniz ed section and content) Reason Comments Dizziness Headache Reason Comments Headache Reason Comments Well Women Visit Reason Comments Dizziness Headache Reason Onset Date Comments Ophtho note 03/11/2024 Reason Comments New Patient Visit For dizziness and po ts testing Specialty Diagnoses / Procedures Referred By Contac t Referred To Contact Diagnoses Encounter to establish care Procedures ECG 12 Lead Fran Velazquez MD [address] [facility] [address] [place] [address] Phone: tel: fax: Referral ID Status Reason Start Date Expiration Date V isits Requested Visits Authorized [id number] Authorized 05/15/2024 05/15/2025 1 1 Reason Comments Thyroid Problem Specialty Diagnoses / Procedures Referred By Contac t Referred To Contact Endocrinology Diagnoses Other specified abnormal findings of blood chemistry Procedures NC OFFICE/OUTPATIENT NEW LOW MDM 30 MINUTES Alyssa Butterfield MD [facility] Referrals ONLY fax: Seamus Grier MD [address] [place] [address] Phone: tel: fax: Referral ID Status Reason Start Date Expiration Date Visits Re quested Visits Authorized [id number] Closed 06/13/2024 12/10/2024 1 1 Reason Comments Follow-up Test results Specialty Diagnoses / Procedures Referred By Contac t Referred To Contact Cardiology Diagnoses Lightheadedness Procedures Follow Up In Cardiology Fran Velazquez MD [address] [place] [address] Phone: tel: fax: Fran Velazquez MD [address] [address] Phone: tel: fax: Referral ID Status Reason Start Date Expiration Date V isits Requested Visits Authorized [id number] Authorized 05/15/2024 05/15/2025 1 1 Care Teams (unrecognized sec tion and content) Team Status: Active Member Role Status Dates Alyssa Butterfield MD Primary Care Provider Active Team Status: Active Member Role Status Dates Alyssa Butterfield MD Primary Care Provider Active Start: May 17, 2024 Alyssa Butterfield MD Attending Provider Active St art: May 17, 2024 Team Status: Inactive Member Role Status Dates Alyssa Butterfield MD Primary Care Provider Active Start: June 04, 2024 End: June 04, 2024 Alyssa Butterfield MD Attending Provider Active St art: June 04, 2024 End: June 04, 2024 Team Status: Inactive Member Role Status Dates Alyssa Butterfield MD Primary Care Provider Active Start: June 17, 2024 End: June 17, 2024 Fran Velazquez MD Attending Provider Active Start: June 17, 2024 End: June 17, 2024 Sushant Busch MD Referring Provider Active Start: June 17, 2024 End: June 17, 2024 Team Status: Inactive Member Role Status Dates Alyssa Butterfield MD Primary Care Provider Active Start: July 30, 2024 End: July 30, 2024 Naya Butler APRN-GLASSWARE FINISHER-Anel Attending Provider Active Start: July 30, 2024 End: July 30, 2024 Team Status: Inactive Member Role Status Dates Alyssa Butterfield MD Primary Care Provider Active Start: August 04, 2024 End: August 04, 2024 Alyssa Butterfield MD Attending Provider Active St art: August 04, 2024 End: August 04, 2024 Team Status: Inactive Member Role Status [...] 25, 2023 End: September 25, 2023 Naya E Butler , WORKERS' COMPENSATION MEDIATOR-GLASSWARE FINISHER-C Attending Provider Active Start: September 25, 2023 [...] Team Status: Inactive Member Role Status Dates lAyssa Butterfield MD Primary Care Provide r, Attending [...] 2023 End: November 09, 2023 Naya Butler APRN-GLASSWARE FINISHER-C Attending Provider Active Start: November 09, 2023 End: November 09, 2023 Beverage Steward Relationship Specialty Start Date End Date Alyssa Butterfield MD [address] [place] [address] PCP - General Family Medicine 06/27/22 Beverage Steward Relationship Specialty Start Date End Date Alyssa Butterfield MD [address] [place] [address] PCP - General Family Medicine 06/27/22 Beverage Steward Relationship Specialty Start Date End Date Alyssa Butterfield MD [address] [place] [address] PCP - General Family Medicine 06/27/22 Beverage Steward Relationship Specialty Start Date End Date Alyssa Butterfield MD [address] [facility] [place] [address] PCP - General Family Medicine 06/27/22 Beverage Steward Relationship Specialty Start Date End Date Alyssa Butterfield MD [address] [place] [address] PCP - General Family Medicine 06/27/22 Beverage Steward Relationship Specialty Start Date End Date Alyssa Butterfield MD [address] [place] [address] PCP - General Family Medicine 06/27/22 Beverage Steward Relationship Specialty Start Date End Date Alyssa Butterfield MD [address] [place] [address] PCP - General Family Medicine 06/27/22 Beverage Steward Relationship Specialty Start Date End Date Alyssa Butterfield MD [address] [facility] [place] [address] PCP - General Family Medicine 06/27/22 Beverage Steward Relationship Specialty Start Date End Date Alyssa Butterfield MD [address] [place] [id number] PCP - General Family Medicine 06/27/22 Beverage Steward Relationship Specialty Start Date End Date Alyssa Butterfield MD [address] [place] [address] PCP - General Family Medicine 06/27/22 Beverage Steward Relationship Specialty Start Date End Date Alyssa Butterfield MD [address] [place] [address] PCP - General Family Medicine 06/27/22 Bonnie Johnson DO [address] [id number] Referring Physician Neurology 03/11/24 Beverage Steward Relationship Specialty Start Date End Date Alyssa Butterfield MD [address] [place] [address] PCP - General Family Medicine 06/27/22 Bonnie Johnson DO [address] [place] [address] Referring Physician Neurology 03/11/24 Beverage Steward Relationship Specialty Start Date End Date Alyssa Butterfield MD [address] [place] [address] PCP - General Family Medicine 06/27/22 Bonnie Johnson DO [address] [place] [address] Referring Physician Neurology 03/11/24 Beverage Steward Relationship Specialty Start Date End Date Alyssa Butterfield MD [address] [place] [address] PCP - General Family Medicine 06/27/22 Bonnie Johnson DO [address] [address] Referring Physician Neurology 03/11/24 Beverage Steward Relationship Specialty Start Date End Date Alyssa Butterfield MD [address] [place] [address] PCP - General Family Medicine 06/27/22 Bonnie Johnson DO [address] [address] Referring Physician Neurology 03/11/24 Team Status: Inactive Member Role Status Dates Alyssa Butterfield MD Primary Care Provide r, Attending Provider Active Start: May 01, 2024 End: May 01, 2024 Beverage Steward Relationship Specialty Start Date End Date Alyssa Butterfield MD [address] [place] [address] PCP - General Family Medicine 05/15/24 Beverage Steward Relationship Specialty Start Date End Date Alyssa Butterfield MD [address] [place] [address] PCP - General Family Medicine 05/15/24 Team Status: Active Member Role Status Dates Alyssa Butterfield MD Primary Care Provide r, Attending Provider Active Start: May 17, 2024 Team Status: Inactive Member Role Status Dates Alyssa Butterfield MD Primary Care Provide r, Attending Provider Active Start: June 04, 2024 End: June 04, 2024 Beverage Steward Relationship Specialty Start Date End Date Alyssa Butterfield MD PCP - General Family Medicine 06/27/22 Bonnie Johnson DO [address] [place] [address] Referring Physician Neurology 03/11/24 Beverage Steward Relationship Specialty Start Date End Date Alyssa Butterfield MD PCP - General Family Medicine 06/27/22 Bonnie Johnson DO [address] [place] [address] Referring Physician Neurology 03/11/24 Beverage Steward Relationship Specialty Start Date End Date Alyssa Butterfield MD [address] [place] [address] [facility] - General Family Medicine 05/15/24 Team Status: Inactive Member Role Status Dates Alyssa Butterfield MD Primary Care Provider Active Start: May 01, 2024 End: May 01, 2024 Alyssa Butterfield MD Attending Provider Active St art: May 01, 2024 End: May 01, 2024 Beverage Steward Relationship Specialty Start Date End Date Alyssa Butterfield MD [address] [place] [address] [facility] - General Family [facility] 05/15/24 Goals (unrecognized section and content) Goals [...] BE BASED ON THE PRIMARY CLINICAL RECORDS. [facility]. provides no warranty or guarantee of the accuracy or completeness of information in this document.
[2024-11-10 10:16] LABS: Free T3 2.21 pg/mL (2.18-3.98); Thyroid Stimulating Hormone 3.811 uIU/mL (0.358-3.740)
== END 2024-11-10 08:58 | disposition home or self-care (01) ==
LOC: LAB 09:00
PROVIDERS: PCP Family Medicine; Visit Provider Internal Medicine
DX: E03.8 Other specified hypothyroidism (principal)
CPT/HCPCS: 36415; 84439; 84443; 84481

== ENCOUNTER 2024-12-20 11:00 | Outpatient (OUT) | payer OTHER, SELFPAY ==
--- OUTSIDE RECORDS SUMMARY | 2024-12-09 08:33 | XMS_ITS | Continuity of Care Document ---
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 Role Phone Edie Abreu MD Primary Care Provider Seamus Grier MD Attending Provider [phone] Naya Butler APRN-MOVING VAN DRIVER-C Attending Provider + Edie Abreu MD Attending Provider Care Teams Patient Care Team Team Status: Active Member Role/Relationship Status Dates Edie Abreu MD Primary Care Provider Active Visit Care Team Team Status: Active Member Role/Relationship Status Dates Edie Abreu MD Primary Care Provider Active Start: November 10, 2024 Raiza Wallace ProviderActiveStart: November 10, 2024 Visit Care Team Team Status: Inactive Member Role/Relationship Status Dates Edie Abreu MD Primary Care Provider Active Start: November 17, 2024 End: November 17, 2024DARLEEN Masterson-CAttending ProviderActive Start: November 17, 2024 End: November 17, 2024 Patient Care Team Team Status: Inactive Member Role/Relationship Status Dates Edie Abreu MD Primary Care Provider Active Start: December 09, 2024 End: December 09, 2024Raiza Aranda ProviderActiveStart: December 09, 2024 End: December 09, 2024 Chief Complaint and Reason for Visit Chief Complaint Admit Date Follow up November 17, 2024 1 1:31am Dizzy, Congestion December 09, 2024 1 :03pm Reason for Visit Admit Date Dizziness November 17, 2024 1 1:31am Intracranial hypertension November 17, 2024 11:31am Obesity November 17, 2024 1 1:31am Allergies, Adverse Reactions, Alerts Allergen Type Severity Reaction Last Updated Verified Status No Known Allergies Allergy Unknown December 09, 2024 1:11pmYesActive Social History Smoking Status Status Start Date End Date Date of Observa tion Never smoked tobacco (finding) July 30, 2024 2:22pm Observation Status Observation Response Date of Response Legal Sex Female (finding) [facility] 1990 Family History Relationship Condition Age at Onset Recorded Date/T morgan father Diabetes mellitus Unknown AlcoholismUnknown Problems Active Problems Problem Diagnosis/Recorded Date Onset Date Status C omments Dizziness of unknown etiology June 28, 2023 1:05pm Unknow n Active Sinusitis, acute maxillaryDecember 2023 10:15amUnknownActiveFatigueMarch 2024 2:09pmUnknownActiveDizzinessJune 2024 11:53amUnknownActiveAcute middle ear effusionMarch 2023 8:23amUnknownActiveAnxietyAugust 2023 9:35amUnknownActiveEncounter for medication monitoringJune 2024 11:54am UnknownActiveDepressionMarch 2023 10:19amUnknownActiveHeadacheJuly 2023 12:47pmUnknownActivePCOS (polycystic ovarian syndrome)December 14, 2020 12:56pmUnknownActiveVertigoMarch 2023 8:23amUnknownActivePanic attacks March 06, 2024 9:51amUnknownActiveIntracranial hypertensionJuly 2023 12:48pmUnknownActiveGERD (gastroesophageal reflux disease)April 13, 2023 10:19amUnknownActiveBronchitisJune 2023 12:36pmUnknownActiveObesityJune 2024 11:53amUnknownActiveAbnormal thyroid blood testApril 2024 10:48amUnknownActiveInactive/Resolved Problems Problem Diagnosis/Recorded Date Onset Date Status C omments Hand, foot and mouth disease January 01, 2024 8:44am Un known Resolved Abdominal cramping affecting pregnancyNov2020 4:53pmUnknownResolved Problem List clean-up per request of Phys. EHR Cmte Medications Medication Status Dose Units Route Directions Qty Days Refills S tart Date Stop Date End Date Reason(s) Instructions Adherence Metformin 500 mg tablet extended release 24 hr Discontinued 500 MG PO Daily 90 1May 2023 11:53amMay 2023 2:42pmMetformin 500 mg tablet extended release 24 hrDiscontinued0.ROUTE.DDKCCZZ5122Srzauk 2023 10:42amNovember 2023 4:05pmTAKE 1 TABLET BY MOUTH TWICE DAILYBuspirone 5 mg tablet Eafjpneeggzl8JKSBXyygw daily as needed for akynbwg408Cgixnn 2023 7:12am October 19, 2023 7:16amBuspirone 5 mg prvhxjDwektiavhurh9UZNFDseof daily as needed for jzavyqa599Ecciaksvm 2023 7:16amOctober 2023 9:56am Buspirone 5 mg phkrdaByngixizeuoh5XCBYJxvct daily as needed for lqezudf636 November 06, 2023 9:56amDecember 2023 4:00pmMetformin 500 mg tablet extended release 24 hrDiscontinued0.ROUTE.ICYMHZT0217Bkkcutgi 14th, 2024 4:05pm March 21, 2024 12:46pmTAKE 1 TABLET BY MOUTH TWICE DAILYMetformin 500 mg tablet extended release 24 hrDiscontinued0.ROUTE.MWHSGQW4219Jkikpqpi 2024 12:46pmJune 23, 2024 11:33amTAKE 1 TABLET BY MOUTH TWICE DAILYMetformin 500 mg tablet extended release 24 hrActive0.ROUTE.ZPYCHYP5625Fcr 19th, 2025 11:33amTAKE 1 TABLET BY MOUTH TWICE DAILYComplies with drug therapyVenlafaxine 37.5 mg capsule,extended release 59efTfcwrsporhja15.3OQTDAoekz986Rksd 2024 2:59pm October 28, 2024 9:01amLevothyroxine 50 mcg xsbcpdBvimpmaumnuj53SNHNRAfmyu27 0July 2024 7:26amOctober 2024 6:30amVenlafaxine 37.5 mg capsule,extended release 48lwXklshh46.5LKRAFcujw828Trcxlhxjc 2024 9:01am Complies with drug therapyVenlafaxine 75 mg capsule,extended release 24hrActive 16YCEXSolxy883Cyrhsadpr 2024 7:15amComplies with drug therapyLevothyroxine 50 mcg tabletActive0.ROUTE.YAVWKRF979Afonloi 2024 6:30amTAKE 1 TABLET BY MOUTH DAILYComplies with drug therapyMetformin 500 mg tablet extended release 24 dxYqkhsucgonzk455DYEIZmafg dailyNov2020 12:00amMarch 2023 10:21amSertraline 50 mg PbupxqVzfrphvysloc81FLESBineqNmvimegq 2020 12:00am April 13, 2023 10:21amMetformin 500 mg tablet extended release 24 hr Zqvgdibbpraa271QGAHRtnqqXaisr 2023 10:21amMay 2023 11:53amMetformin 500 mg tablet extended release 24 kaZnmztabsrhmt185UHGQOlqbg dailyMay 2023 2:42pmMay 2023 7:34amMetformin 500 mg tablet extended release 24 hr Gfnhgvhzrtpa907GTSGJwcfe lyoel3557NxvJune 11, 2023 7:34amAugust 2023 10:42am Azithromycin 250 mg kqrcjoJukbohqktpbs1BJ.QUFCTNX03Vpgk 2023 11:00pmJuly 2023 8:48amFor 250 mg dose pack: take 500 mg today (day 1), then 250 mg for 4 days (days 2-5) POBuspirone 5 mg rzshjqCohsvdpdhgeq0NCICSlumy daily as needed for mheykqg091Bivi 2023 11:00pmAugust 2023 7:12amBuspirone 5 mg vghjcuEnevetkyrrkv0QMZOVlstk553Oatrcijs 2023 4:00pmJanuary 2024 9:44amanxietyAmoxicillin-Pot Clavulanate 875-125 mg hwzkbiWmmiewhchifc7CEEHD Twice nlhut319Kciipcx 9th, 2025 12:00amJanuary 2024 10:05amVenlafaxine 75 mg capsule,extended release 41hlPuorrqhtmaef51IAHNUbbpx825Pdfxsqu 2024 9:46amSeptember 2024 7:15amDrospirenone (Contraceptive) (Slynd) 4 mg (28) syncjiYiejgcghozzd8IAZLFDnckrBxgjifjx 2024 12:00amOctober 2024 10:39amVenlafaxine 37.5 mg capsule,extended release 34nzPcusvnwkmjra24.5MGPO DailyMarch 2024 11:00pmJune 2024 2:59pmAmoxicillin-Pot Clavulanate 875-125 mg twwjsqMiygtdbklycm8TPZQNKnnmn rcgst509Ybrwd 2024 2:07pmApril 2024 10:24amMetoprolol Succinate 25 mg tablet extended release 24 hr DiscontinuedMGPOApril 2024 11:00pmOctober 2024 10:40amLevothyroxine 50 mcg xcqjjjQtlsmxlfkcgu82OQFGKPzahq158Tjfjj 2024 11:00pmJuly 2024 7:26amVenlafaxine 37.5 mg capsule,extended release 23geWgaeqlowylll04.5MGPODaily April 13, 2023 12:00amJune 2023 2:30pmDocosahexaenoic Acid ( Dha) 200 mg capsuleDiscontinuedMGPOMarch 2023 12:00amAugust 2023 6:59am Meclizine 25 mg nwhzzaVljpisehnryy80NTFJ6-0 TIMES PER DAY as needed for wkfgaavpf275Oiohv2023 11:00pmMarch 2023 9:41amVenlafaxine 37.5 mg capsule,extended release 75crKzdmlwddxmde07ZXQWEjyjfYtvb 2023 2:29pm March 06, 2024 9:47amMeclizine 25 mg fuuuhdKhsjzvxkroct67BIXT3-8 TIMES PER DAY as needed for ohdzhamyx416Apbca 2023 9:41amDecember 2023 4:00pm Ondansetron 4 mg tablet,vtzewrgkgmrrxeOfoxxa4AAMOF0N as needed for nausea and dmhkpyuu739Coij 2023 11:00pmComplies with drug therapyFurosemide 20 mg jcapvrJnkqaniddivu79WPSLTzoooNxafcggyp 2023 11:00pmJune 2024 2:18pm Furosemide 20 mg lkxqioJjyrjblagben35FHHEBvfmb59504Nmxj 2024 2:17pmJune 2024 1:06pmFurosemide 20 mg eqhpaiXeubty52FKYXEpogg68216Awau 2024 1:05pmComplies with drug therapy Immunizations Immunization Event Date Not Given Reason 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 Number Reason(s) Given Vaccine Information Statement (VIS) Detail Administration Location COVID-19 mRNA-1273 (Moderna) February 19, [id number] [place] [address] CtrCOVID-19 mRNA-1273 (Moderna)March [id number] [place] [address] CtrCOVID-19 mRNA-1273 (Moderna)November [id number] Vaccineinfluenza, unspecified formulationNovember 2021Tetanus, Diphtheria adult, 5 Lf pres free absSeptember 2013 Relevant Diagnostic Tests and/or Laboratory Data Laboratory Results Test Collection Date/Time Result Date/Time Result Interpretation Reference Range Result Comment Performing Site Free Thyroxine November 10, 2024 8:12am November 10, 2024 8:12am 1.04 ng/dL 0.76-1.46Thyroid Stimulating Hormone 3rd GenOctober 2024 8:12amOctober 2024 8:12am3.811 u[iU]/mLAbove high normal0.358-3.740Free Triiodothyronine November 10, 2024 8:12amOctober 2024 8:12am2.21 pg/mL2.18-3.98 Vital Signs Vital Reading Result Reference Range Collection Date/Time Height 65 [in_i] November 17, 2024 10:16cyPfzopp193.37 [facility] 2024 10:06amHeart Rate98 /lqy58-264Txuxpdg 2024 10:06amRespiratory rate16 /hjo12-60Vzpwptn 2024 10:06amOxygen saturation by Pulse edfuplqg69 %95-100[facility] 2024 10:06amBP Qzuiirah456 mm[Hg]100-140[facility] 2024 10:06amBP Nprnnhafv33 mm[Hg]60-100[facility] 2024 10:06amBMI (Body Mass Index)45.2 kg/f3Shhffma 2024 10:60irLpzoes21 [in_i]December 09, 2024 1:43ucCdvxfb073.46 kg December 09, 2024 1:08pmHeart Rate83 /pct92-073NmqbyxzuDecember 09, 2024 1:08pmBP Nhdcorss449 mm[Hg]100-140December 09, 2024 1:08pmBP Pxtzastks35 mm[Hg]60-100 December 09, 2024 1:08pmBMI (Body Mass Index)44.9 kg/z2Ffbkzktz2024 1:08pm Advance Directives Advance Directive Response Recorded Date/ Time Advance Directives No July 30 1:22pm Insurance Providers Guarantor Swati White Address [address] [place] [id number] Info.Home Phone: Coverage Status Update:2024 Payer Group Member ID Coverage Type Subscriber Relationship to Subscriber Effective Date [place] [facility] [id number] N Smith Id: [id number] [address] [place] [address] Home Phone: Email: [email or web address] [employer] Id: [id number] N Smith Id: [id number] [address] [place] [address] Home Phone: Email: [email or web address] [employer] Id: [id number] N Christopher Id: [id number] [address] [address] Home Phone: Email: [email or web address] asha Id: [id number] N Christopher Id: [id number] [address] [address] Home Phone: Email: [email or web address] Encounters Encounter Location(s) Arrival/Admit Date Discharge/Departure Date Discharge/Departure Disposition Provider(s) Non-patient / Non-visit -[facility] O ctober 2024 9:12am [facility] 11:31amOctober 2024 12:03pmDischarged to home care or self care (routine discharge)Naya Butler APRN-FNP-CDeparted Physician/Provider Office Visit-[facility] 2024 1:03pm December 09, 2024 1:32pmDischarged to home care or self care (routine discharge)Edie Abreu MD Recent Diagnosis Onset Date Admit Date Dizziness Unknown November 17 11:31am Intracranial hypertension Unknown Octobe r 2024 11:31am Obesity Unknown November 17 11:31am Assessments Diagnosis Onset Date Resolution Status Admit Date Dizziness acuteOctober 2024 11:31amIntracranial hypertensionacuteOctober 2024 11:31amObesityacuteOctober 2024 11:31am Plan of Treatment Author Naya Butler [facility] 2024 12:43pmThe patient reports intermittent dizziness. This is primarily triggered by certain head movements but can also be provoked by external visual stimuli, leaning forward then standing upright, and standing up quickly from a seated position. VNG test on 08/29/2023 identified evidence of peripheral vestibular dysfunction consistent with BPPV and also central vestibular dysfunction. Although VNG was suggestive of a central etiology, MRI of the brain on 08/15/2023 did not reveal any apparent intracranial cause for this (no mention of CVA, tumor, cerebellar/brainstem abnormality, or demyelinating disease), and the patient denies history of migraines. Orthostatic vital signs on 01/22/2024 were negative, and cardiology felt she did not have POTS per patient report. Audiology test on 06/20/2023 revealed normal hearing. I believe the patient most likely has BPPV but would also consider cervical mediated dizziness and/or vestibular migraine given the clinical presentation. She completed 2 sessions of vestibular therapy and stopped thereafter. She did not see much subjective benefit with VT. Meclizine was not tolerated due patient report of rebound dizziness following use. She continues to have intermittent episodes of dizziness approximately 3 to 5 days per week. PLAN: - I offered referral to an alternative vestibular therapist which the patient politely declined. She states she does not have the money to complete VT currently - I provided the patient with instructions to complete modified Marco maneuvers maneuvers at home. I encouraged the patient to complete these 3 times a day until she is free from positional vertigo - May consider trial of medication for vestibular migraine prevention in the future if symptoms worsen or fail to improve on the current regimen - She was previously evaluated by Dr. Seymour (ENT) who recommended vestibular evaluation in [place], [place], but chose not to proceed with this - Ensure adequate water intake and change positions slowly - I recommend the patient refrain from operating heavy machinery until her dizziness is resolved or better managed MRI of the brain on 08/15/2023 revealed findings suggestive of intracranial hypertension. Diagnostic lumbar puncture on 09/25/2023 confirmed this diagnosis with opening pressure of 32 cm CSF. I believe this to be idiopathic. The patient's headaches, overall, improved following the LP and initiation of furosemide. She denies double vision, vision loss, visual obscurations, or pulsatile tinnitus. She is an established patient at [facility] and follows with them regularly for eye exams. Visit note from 12/11/2023 mentioned no optic nerve edema. Acetazolamide was poorly tolerated due to side effects (nausea, fatigue, paresthesias, and increased dizziness) previously. Furosemide has been well tolerated. The patient does report 2-3 headaches per week, but these clearly improve when laying down, so I am not sure they are necessarily related to her IIH and would also consider tension-type headaches. Symptoms are clinically stable since the prior neurology appointment. PLAN: - Continue furosemide 20 mg by mouth daily - We again discussed a possible medication adjustment to help improve management of patient's headaches. The patient politely declined, as she feels her symptoms are tolerable currently - Lifestyle interventions to help promote weight loss and reduce intracranial pressure - Follow up with ophthalmology for serial eye examinations to help prevent visual impairment/loss. The patient states her next eye exam is scheduled for December 2024 Risk factor for IIH. Diagnoses and treatment plan discussed. The patient verbalizes understanding and is agreeable to plan. All questions answered. Future Tests Future scheduled test information is unavailable Pending Tests Pending diagnostic test information is unavailable Future Visits Future appointment information is unavailable Future Procedures Future procedure information is unavailable Future Medications Future medication information is unavailable Patient Instructions Patient instructions are unavailable
--- OUTSIDE RECORDS SUMMARY | 2024-12-20 11:03 | XMS_ITS | CCD ---
Author Organization [facility] Care Team Providers Care Boiler Out Name Role Phone HARVINDER COLLINS Unavailable Unavailable [...] HARPREET, DR HAYNES Procedure Practitioner Unavailab conchis AGMARGARITA MARCK Consulting Unavailable HARPREET, DR HAYNES Attending Unavailable HARPREET, DR HAYNES Admitting Unavailable SCOUT, DR ALYSSA Francois Primary Care Unavailable WEST, DR KULWINDER Lin Consulting Unavailable HARPREET, DR HAYNES Consulting Unavailable Alyssa Butterfield Unavailable MD Alyssa Butterfield Primary Care Provider MD Alyssa Butterfield Attending Provider MD Alyssa Butterfield Primary Care Provider MD Alyssa Butterfield Attending Provider [phone] ALYSSA BUTTERFIELD Primary Care Unavailable DO Amos Johnson Attending Provider MD Alyssa Butterfield Primary Care Provider [phone] RAKEL Butler-MEDICAL DATA ANALYST-Anel Francois Attending Provider Alyssa Butterfield MD Primary Care Provider Alyssa Butterfield MD Primary Care Provider Luke WINDOW REPAIRER-MEDICAL DATA ANALYST-C, Naya Francois Attending Provider Amos Johnson DO Unavailable Alyssa Butterfield MD Primary Care Provider Alyssa Butterfield MD Primary Care Provider Fran Velazquez MD Attending Provider Sushant Busch MD Referring Provider Alyssa Butterfield MD Primary Care Provider Amos Johnson DO Unavailable Alyssa Butterfield MD Primary Care Provider [phone] Alyssa Butterfield MD Attending Provider Luke WINDOW REPAIRER-MEDICAL DATA ANALYST-C, Naya Francois Attending Provider FRAN VELAZQUEZ Referring Unavailable ALYSSA BUTTERFIELD Primary Care Unavailable FRAN VELAZQUEZ Referring Unavailable ALYSSA BUTTERFIELD Primary Care Unavailable Alyssa Butterfield MD Primary Care Provider Alyssa Butterfield MD Attending Provider Alyssa Butterfield Primary Care Unavailable Butler, Naya E Admitting Unavailable Butler, Naya E Attending Unavailable Alyssa Butterfield Primary Care Unavailable Butler, Naya E Admitting Unavailable Butler, Naya E Attending Unavailable Chito Rios Admitting Unavailab le Chito Rios Attending Unavailab le Alyssa Butterfield Primary Care Unavailable Alyssa Butterfield Primary Care Unavailable Mariela, Fran H Admitting Unavailable Mariela, Fran H Attending Unavailable Sushant Busch Referring Unavailable MARIELA, FRAN H Attending Unavailable ALYSSA BUTTERFIELD Primary Care Unavailable MARIELA, FRAN H Referring Unavailable ALYSSA BUTTERFIELD Primary Care Unavailable MARIELA, FRAN H Attending Unavailable MARIELA, FRAN H Referring Unavailable ALYSSA BUTTERFIELD Primary Care Unavailable Amos Johnson DO Unavailable Alyssa Butterfield MD Primary Care Provider Seamus Grier MD Attending Provider Butler WINDOW REPAIRER-MEDICAL DATA ANALYST-C, Naya Francois Attending Provider Alyssa Butterfield MD Primary Care Provider Seamus Grier MD Attending Provider Butler WINDOW REPAIRER-MEDICAL DATA ANALYST-C, Naya E Attending Provider Alyssa Butterfield MD Attending Provider Alyssa Butterfield MD Primary Care Provider Amos Johnson DO Unavailable RICCI MULLINS Attending Unavailable NAYA BUTLER Attending Unavailable NAYA BUTLER Attending Unavailable SEAMUS GRIER F Attending Unavailable ALYSSA BUTTERFIELD Referring Unavailable SEAMUS GRIER Referring Unavailable SEAMUS GRIER Attending Unavailable BUTLER, NAYA Attending Unavailable YUN NARANJO Attending Unavailable LUKE, NAYA Referring Unavailable YUN NARANJO Attending Unavailable NAYA BUTLER Referring Unavailable RICCI MULLINS Attending Unavailable Allergies Allergy ClassificationReported Allergen(s)Allergy TypeDate of OnsetReaction(s) Facility (1 source)patient allergy list reviewed by nurse or physiciaPropensity to adverse -[phone]:[facility] [employer] Other (1 source)Allergies ReconciledPropensity to adverse reactionsCenter[facility] [employer] Other (10 sources)Cat DanderAllergy to qhdkbmble79-21-1185VndvmgoPMAN Healthcare (10 sources)OtherAllergy to tvuzorhzp47-79-2287RwrfbthRJZN Healthcare Medications Current Medications MedicationDrug Class(es)DatesSig (Normalized)Sig (Original)albuterol 0.83 mg/ml inhalation solution (20 sources)beta2-Adrenergic AgonistStart: 97-97-8391aljincejd (2.5 MG/3ML) 0.083% nebulizer solution Take 2.5 mg by nebulization every 6 (six) hours if needed 12/30/2022 ActiveStart: 05-66-5596hcir 2 puff(s) by inhalation every six hoursalbuterol HFA 90 mcg/act inhaler Inhale 2 puffs every 6 (six) hours if needed 12/30/2022 ActiveStart: 86-93-1091jkvfliics 2.5 mg /3 mL (0.083 %) nebulizer solution 3 mL (2.5 mg) every 6 hours if needed for wheezing or shortness of breath. 12/30/2022 Activeaspirin 81 mg delayed release oral tablet (2 sources)Platelet Aggregation Inhibitor, Nonsteroidal Anti-inflammatory Drug take 1 tablet by mouth every twenty-four hoursAspirin 81 MG 1 tablet Orally Once a day Activecephalexin 500 mg oral capsule (3 sources)Cephalosporin AntibacterialStart: 12-10-2024 End: 67-68-2850dvpd 1 capsule by mouth in the morningcephalexin (Keflex) 500 MG capsule Indications: Folliculitis Take 1 capsule (500 mg) by mouth in the morning and 1 capsule (500 mg) before bedtime. Do all this for 7 days. 14 capsule 12/10/2024 12/17/2024 Activecholecalciferol 0.05 mg oral capsule (20 sources)Vitamin Dtake 1 capsule by mouth once dailycholecalciferol (Vitamin D-3) 50 MCG (2000 UT) capsule Take 2,000 Units by mouth Daily Activetake 1 capsule by mouth in the morningcholecalciferol (Vitamin D-3) 50 MCG (2000 UT) capsule Take 2,000 Units by mouth in the morning. ActiveDROSPIRENONE, CONTRACEPTIVE, ORAL (4 sources)Start: 03-27-2024 End: 60-04-5550ADRONLHBBCNA, CONTRACEPTIVE, ORAL Drospirenone (Contraceptive) (Slynd) 4 mg (28) tablet Active 1 TAB PO Daily March 27, 2024 1:00am 03/27/2024 08/21/2024 Discontinued (Therapy completed)Start: 03-27-2024 DROSPIRENONE, CONTRACEPTIVE, ORAL Drospirenone (Contraceptive) (Slynd) 4 mg (28) tablet Active 1 TAB PO Daily March 27, 2024 1:00am 03/27/2024 Active fexofenadine hydrochloride 180 mg oral tablet (20 sources)Histamine-1 Receptor Antagonisttake 1 tablet by mouth once daily fexofenadine (Radha Allergy) 180 MG tablet Take 180 mg by mouth Daily Active Radha Not-Taking/PRNAllegra Not-Takingfluticasone propionate 0.05 mg/actuat metered dose nasal spray (7 sources)Corticosteroidtake 1 spray(s) nasal route once daily as needed fluticasone (Flonase) 50 mcg/actuation nasal spray Administer 1 spray into affected nostril(s) oncedaily as needed. ActiveFlonase Not-Taking/PRNFlonase Not-Takingfurosemide 20 mg oral tablet (20 sources)Loop DiureticStart: 38-42-2069axai 2 tablets by mouth once daily furosemide (Lasix) 20 mg tablet Take 2 tablets (40 mg) by mouth once daily. 04/23/2024 ActiveStart: 10-16-2023 End: 47-77-8195ifjd 1 tablet by mouth once dailyfurosemide (Lasix) 20 MG tablet Indications: Intracranial hypertension TAKE 1 TABLET(20 MG) BY MOUTH DAILY 30 tablet 2 04/23/2024 Activeletrozole 2.5 mg oral tablet (7 sources)Aromatase Inhibitor End: 71-74-2715fpdxsmvdu (Femara) 2.5 mg tablet Take by mouth. 08/21/2024 Discontinued (Therapy completed)levothyroxine sodium 0.05 mg oral tablet (17 sources)l-ThyroxineStart: 20-03-7462cusf 1 tablet by mouth once daily Levothyroxine 50 mcg tablet Active 0 .ROUTE .COMPLEX 90 0 November 28, 2024 6:30am TAKE 1 TABLET BY MOUTH DAILY Complies with drug therapyStart: 06-04-2024 End: 93-13-1029ovwg 1 tablet by mouth once dailyLevothyroxine 50 mcg tablet Discontinued 50 MCG PO Daily 90 0 August 19, 2024 7:26am November 28, 2024 6:30ammeclizine hydrochloride 25 mg oral tablet (20 sources)AntiemeticStart: 19-04-5251lotuvywui (Antivert) 25 MG tablet Take 25 mg by mouth as needed in the morning and 25 mg as needed at noon and 25 mg as needed in the evening. 04/18/2023 ActiveStart: 04-16-2023 End: 41-68-0728Msupkbvoi 25 mg tablet Discontinued 25 MG PO 2-3 TIMES PER DAY as needed for dizziness April 18, 2023 9:41am January 17, 2024 4:00pm Naproxen (18 sources)Nonsteroidal Anti-inflammatory Drug End: 28-78-3091LPZUBTZC PO Naproxen 03/06/2024 DiscontinuedNAPROXEN PO Naproxen Activenorethindrone 0.35 mg oral tablet (10 sources)Start: 05-29-2024 End: 26-31-4450jokl 1 tablet by mouth once dailynorethindrone (Micronor) 0.35 MG tablet Indications: control counseling Take 1 tablet (0.35 mg) by mouth Daily 28 tablet 11 05/29/2024 05/29/2025 Activeondansetron 4 mg disintegrating oral tablet (20 sources)Serotonin-3 Receptor AntagonistStart: 08-16-2023 End: 15-07-4312zykb 1 tablet by mouth every eight hours as needed for nausea and vomitingOndansetron 4 mg tablet,disintegrating Active 4 MG PO Q8H as needed for nausea and vomiting August 15, 2023 11:00pm Complies with drug therapy (3 sources) ActivePrenatal Vit-Fe Fumarate-FA ( VITAMINS PO) (18 sources) End: 66-64-3003waqt 1 tablet by mouth once dailyPrenatal Vit-Fe Fumarate-FA ( VITAMINS PO) Take 1 tablet by mouth Daily 03/06/2024 Discontinuedtake 1 tablet by mouth once dailyPrenatal Vit-Fe Fumarate-FA ( VITAMINS PO) Take 1 tablet by mouth Daily Activevitamin b12 1 mg oral tablet (20 sources)Vitamin D60jdoj 1 tablet by mouth once dailycyanocobalamin (Vitamin B-12) 1000 MCG tablet Take 1,000 mcg by mouth Daily Active Completed/Discontinued Medications MedicationDrug Class(es)DatesSig (Normalized)Sig (Original)acetaZOLAMIDE 250 mg oral tablet (3 sources)Carbonic Anhydrase InhibitorStart: 09-30-2023 End: 11-07-5566wtwa 1 tablet by mouth in the morningacetaZOLAMIDE (Diamox) 250 MG tablet Indications: Intracranial hypertension Take 1 tablet (250 mg) by mouth in the morning and 1 tablet (250 mg) before bedtime. 60 tablet 2 09/30/2023 10/15/2023 Discontinued (Side effects)amoxicillin 875 mg / clavulanate 125 mg oral tablet (17 sources)Penicillin-class AntibacterialStart: 05-01-2024 End: 45-77-2462nqgd 1 tablet by mouth twice dailyAmoxicillin-Pot Clavulanate 875-125 mg tablet Discontinued 1 TAB PO Twice daily 20 May 01, 2024 2:07pm June 04, 2024 10:24amStart: 02-14-2024 End: 16-98-4462dplq 1 tablet by mouth twice dailyAmoxicillin-Pot Clavulanate 875-125 mg tablet Discontinued 1 TAB PO Twice daily 20 February 14, 2024 12:00am February 26, 2024 10:05amazithromycin 250 mg oral tablet (20 sources)Macrolide AntimicrobialStart: 07-31-2023 End: 25-55-2241Rdjvvftxkxxe 250 mg tablet Discontinued 0 PO .COMPLEX 6 July 30, 2023 11:00pm August 16, 2023 8:48am For 250 mg dose pack: take 500 mg today (day 1), then 250 mg for 4 days (days 2-5) POStart: 07-31-2023 End: 22-13-7773Rconyfqornki Discontinued 0 PO .COMPLEX 6 July 25th, 2024 12:00am August 16, 2023 9:48am For 250 mgdose pack: take 500 mg today (day 1), then 250 mg for 4 days (days 2-5) POStart: 15-46-1641Qbvznuucauza Active 0 PO .COMPLEX July 31, 2023 12:00am For 250 mg dose pack: take 500 mg today(day 1), then 250 mg for 4 days (days 2-5) POAzithromycin 250 MG as directed Orally Active busPIRone hydrochloride 5 mg oral tablet (20 sources)Start: 01-17-2024 End: 29-94-8239hrar 1 tablet by mouth once dailyBuspirone 5 mg tablet Discontinued 5 MG PO Daily 30 January 17, 2024 4:00pm March 06, 2024 9:44am anxietyStart: 09-06-2023 End: 58-23-9355vvhr 1 tablet by mouth twice daily as needed for anxietyBuspirone 5 mg tablet Discontinued 5 MG PO Twice daily as needed for anxiety 30 November 0549:56am January 17, 2024 4:00pmdocosahexaenoic acid 200 mg oral capsule (20 sources)Start: 04-13-2023 End: 62-42-9348Ogogunefixetstw Acid ( Dha) 200 mg capsule Discontinued MG PO April 13, 2023 12:00am September 25, 2023 6:59amdrospirenone 4 mg oral tablet (20 sources)ProgestinStart: 03-06-2024 End: 10-87-4856anjd 1 tablet by mouth once dailyDrospirenone (Slynd) 4 MG tablet Indications: Well woman exam with routine gynecological exam , control counseling Take 1 tablet by mouth Daily 84 tablet 3 03/06/2024 12/10/2024 Discontinueddrospirenone 3 mg / ethinyl estradiol 0.03 mg oral tablet (20 sources)Progestin, EstrogenStart: 08-29-2023 End: 26-97-5900zjtvpnhgpnqq-ethinyl estradiol (Letty, Ocella) 3-0.03 MG tablet Indications: control counseling Take 1 tablet by mouth Daily 84 tablet 3 08/29/2023 12/10/2024 DiscontinuedmedroxyPROGESTERone acetate 10 mg oral tablet (3 sources)ProgestinmedroxyPROGESTERone Acetate 10 MG TAKE 1 TABLET BY MOUTH DAILY UP TO 10 DAYS UNTIL THE START OF MONTHLY CYCLE Oral for 10 Not-Taking/PRN 24 hr metFORMIN hydrochloride 500 mg extended release oral tablet (20 sources)BiguanideStart: 09-17-2023 End: 04-92-6891hwuq 1 tablet by mouth twice dailyMetformin 500 mg tablet extended release 24 hr Discontinued 0 .ROUTE .COMPLEX 180 0 March 21, 2024 12:46pm June 23, 2024 11:33am TAKE 1 TABLET BY MOUTH TWICE DAILYStart: 06-08-2023 End: 48-49-0549yhgl 1 tablet by mouth twice dailyMetformin 500 mg tablet extended release 24 hr Discontinued 500 MG PO Twice daily 180 0 June 11, 2023 7:34am September 17, 2023 10:42amStart: 04-13-2023 End: 70-43-9799qojz 1 tablet by mouth once dailyMetformin 500 mg tablet extended release 24 hr Discontinued 500 MG PO Daily 90 June 07, 2023 11:53am June 08, 2023 2:42pmStart: 12-14-2020 End: 96-44-8725pstl 1 tablet by mouth twice dailyMetformin 500 mg tablet extended release 24 hr Discontinued 500 MG PO Twice daily December 14, 2020 12:00am April 13, 2023 10:21amtake 1 tablet by mouth every twenty-four hours in the morningmetFORMIN XR (Glucophage-XR) 500 MG 24 hr tablet Take 500 mg by mouth in the morning and 500 mg in the evening. Take after meals. Activetake 1 tablet by mouth every twenty-four hoursmetFORMIN HCl ER 500 MG 1 tablet with evening meal Orally Once a day Kwzuyt31 hr metoprolol succinate 25 mg extended release oral tablet (17 sources)beta-Adrenergic BlockerStart: 05-15-2024 End: 78-10-0753djjl 1 tablet by mouth every twenty-four hours in the morning metoprolol succinate XL (Toprol-XL) 25 MG 24 hr tablet Take 25 mg by mouth in the morning. 05/15/2024 12/10/2024 DiscontinuedStart: 05-15-2024 End: 04-51-8877abvc 1 tablet by mouth once dailymetoprolol succinate XL (Toprol- XL) 25 mg 24 hr tablet Indications: Palpitations , Tachycardia Take1 tablet (25 mg) by mouth once daily. Do not crush or chew. 90 tablet 3 05/15/2024 05/15/2025 Activeomeprazole 40 mg delayed release oral capsule (3 sources)Proton Pump Inhibitortake 1 capsule by mouth once dailyOmeprazole 40 MG 1 capsule 30 minutes before morning meal Orally Once a day Not-Taking/PRN sertraline 50 mg oral tablet (20 sources)Serotonin Reuptake InhibitorStart: 12-14-2020 End: 44-33-3958dkgk 1 tablet by mouth once dailySertraline 50 mg Tablet Discontinued 50 MG PO Daily December 14, 2020 12:00am April 13, 2023 10:21am24 hr venlafaxine 37.5 mg extended release oral capsule (20 sources)Serotonin and Norepinephrine Reuptake InhibitorStart: 03-28-2024 End: 67-89-3768firr 1 capsule by mouth once dailyVenlafaxine 37.5 mg capsule,extended release 24hr Discontinued 37.5 MG PO Daily April 30, 2024 11: 00pm July 30, 2024 2:59pmStart: 62-66-3129xiqu 75 mg by mouth once daily Venlafaxine Active 75 MG PO Daily July 31, 2023 3:29pmStart: 05-22-2023 End: 11-20-9679covh 1 capsule by mouth once dailyvenlafaxine XR (Effexor XR) 75 MG 24 hr capsule Take 75 mg by mouth Daily 05/22/2023 ActiveStart: 04-13-2023 End: 04-72-8818bmyf 1 capsule by mouth once dailyVenlafaxine 37.5 mg capsule,extended release 24hr Discontinued 75 MG PO Daily July 31, 2023 2:29pm March 06, 2024 9:47am Problems Active Problems Problem ClassificationProblemDateDocumented DateEpisodic/ChronicAbdominal pain (2 sources)Generalized abdominal pain; Translations: [Generalized abdominal pain]Onset: 46-80-3235AzvhdkxgZdkvo and chronic tonsillitis (20 sources)Chronic tonsillitis; Translations: [Chronic tonsillitis]Onset: 916791-90-9015RzeespvDdhbfei disorders (20 sources)Anxiety; Translations: [Anxiety disorder, unspecified]Onset: 270305-12-5909GwowyieQrlttay dysrhythmias (20 sources)Palpitations; Translations: [Palpitations]Onset: 05-15-2024 78-03-8309RtsdeiuoCrkbfwq obstructive pulmonary disease and bronchiectasis (20 sources)Bronchitis; Translations: [Bronchitis, not specified as acute or chronic]22-50-0541XwezahykBnwtiyyie of lipid metabolism (8 sources)Mixed hyperlipidemia; Translations: [Mixed hyperlipidemia]Onset: 651283-90-2375IvfqklwIwunp or threatened labor (1 source)False labor; Translations: [False labor, unspecified]Episodic Esophageal disorders (20 sources)Gastroesophageal reflux disease; Translations: [Gastro-esophageal reflux disease without esophagitis]19-32-0465NuxhmyyCclpguetisjwh symptoms and ill-defined conditions (1 source)Unspecified symptoms and signs involving the genitourinary system; Translations: [Unspecified symptoms and signs involving the genitourinary system]EpisodicHeadache; including migraine (20 sources)Headache; Translations: [Headache]41-52-8728XbizsauuJomwirmw; including migraine (1 source)Headache; including migraineOnset: 68-01-0079Qpersnifji during ; abruptio placenta; placenta previa (2 sources)Low lying placenta NOS or without hemorrhage, second trimester; Translations: [Placenta previa without hemorrhage]Onset: 48-18-0585Pqroxshj Immunizations and screening for infectious disease (1 source)Encounter for screening for human papillomavirus (HPV); Translations: [ENC SCREENING HUMAN PAPILLOMAVIRUS]Onset: 83-16-8776IijgrylfXydwlvy and fatigue (7 sources)Fatigue; Translations: [Other fatigue]75-10-3767LawwnvjhPznmeckon disorders (20 sources)Amenorrhea; Translations: [Secondary amenorrhea]Onset: 03-29-2016 51-48-0497UbzgcpyFjjw disorders (20 sources)Depressive disorder; Translations: [Depression]Onset: 06-08-2022 93-49-6892TsoqsdiJhluajkblqu deficiencies (11 sources)Vitamin D deficiency; Translations: [Vitamin D deficiency, unspecified]Onset: 529311-31-4538NwyokjeMechy aftercare (1 source)History and physical examination, follow-up; Translations: [Encounter for follow-up examination after completed treatment for conditions other than malignant neoplasm]EpisodicOther aftercare (17 sources)Patient encounter status; Translations: [Encounter for therapeutic drug level monitoring]38-92-2163KxdvfrryRkvkz circulatory disease (1 source)Elevated blood-pressure reading without diagnosis of hypertension; Translations: [Elevated blood-pressure reading, without diagnosis of hypertension]EpisodicOther complications of (1 source)Anemia in mother complicating , childbirth AND/OR puerperium; Translations: [Anemia complicating , unspecified trimester]ChronicOther complications of (1 source)Finding related to ; Translations: [Other specified related conditions, unspecified trimester]EpisodicOther complications of (1 source)Maternal care for excessive growth, unspecified trimester, not applicable or unspecified; Translations: [Maternal care for excessive growth, unspecified trimester, not applicable or unspecified]EpisodicOther complications of (1 source)Viral disease of mother during ; Translations: [Other viral diseases complicating , second trimester]EpisodicOther complications of (20 sources)Complication of , childbirth and/or the puerperium; Translations: [Other specified related conditions, unspecified trimester]51-56-9800LkcuczxwIrqskdp on above:Problem List clean-up per request of Phys. EHR CmteOther endocrine disorders (6 sources)Polycystic ovarian syndrome; Translations: [Polycystic ovaries]Onset: 572723-70-9507BaidvbtFfsvp endocrine disorders (4 sources)Polycystic ovaries; Translations: [Polycystic ovarian syndrome] ChronicOther endocrine disorders (20 sources)Mass of left adrenal gland; Translations: [Other specified disorders of adrenal gland]Onset: 959006-32-8095JzcgfmxDbefo endocrine disorders (20 sources)Polycystic ovary; Translations: [Polycystic ovarian syndrome]Onset: 904801-61-5360TnekpzdRptnu endocrine disorders (17 sources)Polycystic ovary syndrome; Translations: [Polycystic ovarian syndrome]Onset: 659853-14-6715HylzstfUtpxw endocrine disorders (5 sources)Adrenal mass; Translations: [Other specified disorders of adrenal gland]Onset: 701497-17-2447ImudqzaBsyxy endocrine disorders (2 sources)Other specified disorders of adrenal gland; Translations: [Other specified disorders of adrenal gland]Onset: 66-16-2259BbltlgrHwjne gastrointestinal disorders (3 sources)Irritable bowel syndrome with diarrhea; Translations: [Irritable bowel syndrome with diarrhea]ChronicOther gastrointestinal disorders (1 source)Passing flatus; Translations: [Flatulence]EpisodicOther lower respiratory disease (13 sources)Dyspnea on exertion; Translations: [Shortness of breath]Onset: 559348-60-0879BstkgqswXeagv nervous system disorders (20 sources)Raised intracranial pressure; Translations: [Benign intracranial hypertension]67-57-2342FxboifhKltmh nervous system disorders (20 sources)Benign intracranial hypertension; Translations: [Benign intracranial hypertension]Onset: 002416-71-5907VcoyuqfMmzwg nervous system disorders (20 sources)Carpal tunnel syndrome of left wrist; Translations: [Carpal tunnel syndrome, left upper limb]Onset: 409444-59-2432NjlysngLhwhy nervous system disorders (20 sources)Carpal tunnel syndrome of right wrist; Translations: [Carpal tunnel syndrome, right upper limb]Onset: 454002-71-7855ZdvomirXhcrm nervous system disorders (20 sources)Carpal tunnel syndrome; Translations: [Carpal tunnel syndrome, unspecified upper limb]Onset: 756394-10-5916PltpdkyPyann nervous system disorders (20 sources)Bilateral carpal tunnel syndrome; Translations: [Carpal tunnel syndrome, bilateral upper limbs]Onset: 896474-15-1344ChtwsnwSxeoz non- traumatic joint disorders (1 source)Pain in right wristEpisodicOther non-traumatic joint disorders (1 source)Pain in left wristEpisodicOther nutritional; endocrine; and metabolic disorders (10 sources)Body mass index 40+ - severely obese; Translations: [Body mass index (BMI) 40.0-44.9, adult]Onset: 115497-71-9379VqclykfVnhoc nutritional; endocrine; and metabolic disorders (20 sources)Obesity; Translations: [Obesity, unspecified]Onset: 08-14-2017 41-42-9771NnmqgyuWwnzp nutritional; endocrine; and metabolic disorders (8 sources)Severe obesity; Translations: [Class 3 severe obesity due to excess calories with serious comorbidity and body mass index (BMI) of 45.0 to 49.9 in adult ([facility])]01-06-9011VisqiqtKfoij nutritional; endocrine; and metabolic disorders (5 sources)Insulin resistance; Translations: [Insulin resistance]Onset: 228972-33-6761UxkipctFfbco nutritional; endocrine; and metabolic disorders (2 sources)Obesity caused by energy imbalance; Translations: [Class 2 obesity due to excess calories without serious comorbidity with body mass index (BMI) of 36.0 to 36.9 in adult]52-74-8934KapzqlhJukpp nutritional; endocrine; and metabolic disorders (2 sources)Body mass index (BMI) 45.0-49.9, adult; Translations: [Body mass index (BMI) 45.0-49.9, adult ([facility])]Onset: 03-55-5040HchdhbkWpxlb and delivery including normal (11 sources)Encounter for care and examination of lactating mother; Translations: [Encounter for routine follow-up]Onset: 04-27-2021 EpisodicOther skin disorders (2 sources)Folliculitis; Translations: [Follicular disorder, unspecified] 99-78-4144PaenxlntTwusk upper respiratory disease (1 source)Seasonal allergic rhinitis; Translations: [Other seasonal allergic rhinitis]Onset: 86-21-2025QnsxxdcCpkay upper respiratory disease (1 source)Allergic rhinitis; Translations: [Allergic rhinitis, unspecified] Onset: 57-97-7865UotaneyBndsn upper respiratory infections (20 sources)Acute pharyngitis; Translations: [Acute pharyngitis, unspecified] Onset: 478425-41-4589WiwgnproLnayrqsdf (5 sources)Post-term ; Translations: [Post-term ]Onset: 01-13-9563UfqqbyryAsrqtcco codes; unclassified (1 source)Gestation period, 36 weeks; Translations: [36 weeks gestation of ]EpisodicResidual codes; unclassified (1 source)Gestation period, 39 weeks; Translations: [39 weeks gestation of ]EpisodicResidual codes; unclassified (1 source)Gestation period, 30 weeks; Translations: [30 weeks gestation of ]EpisodicResidual codes; unclassified (6 sources)Never smoked tobacco; Translations: [Other specified health status] Onset: 298900-53-7982YrxglhajTzmtwvh disorders (4 sources)Subclinical hypothyroidism; Translations: [Other specified hypothyroidism]68-79-8975DedfqblRodewqdlzver (20 sources)Encounter for screening for malignant neoplasm of cervix; Translations: [Encounter for screening for Streptococcus B]Onset: 79-87-4426FjcpterpRgbsigxzjkme (1 source)PERSONAL HISTORY OF COVID-19; Translations: [PERSONAL HISTORY OF COVID-19]Onset: 28-28-3492Ytgmepmrghup (1 source)CONTACT W/AND (SUSP) EXPOS COVID-19; Translations: [CONTACT W/AND (SUSP) EXPOS COVID-19]Onset: 52-49-2287Umosiklwglkz (1 source)Cold Like SymptomsOnset: 97-78-8044Fyjsldvipghy (1 source)First encounter by -07-4503Wboafsiansbt (1 source)Insulin resistance, unspecified; Translations: [Insulin resistance, unspecified]Onset: 86-81-9533Jjyop infection (15 sources)Viral infection, unspecified; Translations: [Enteroviral vesicular stomatitis with exanthem]Onset: 421116-45-4037Bfmprssp Past or Other Problems Problem ClassificationProblemDateDocumented DateEpisodic/Chronic Administrative/social admission (7 sources)First encounter by subject; Translations: [Persons encountering health services in other specified circumstances]Onset: EpisodicConditions associated with dizziness or vertigo (20 sources)Vertigo; Translations: [Dizziness and giddiness]Onset: 06-20-2023 79-43-3008LeishuzlBcaujrzc mellitus without complication (5 sources)Other abnormal glucose; Translations: [Abnormal glucose level]Onset: 05-28-2021 Resolved: 02-13-9653PvqhalapFhqwejymdwsx diseases of female pelvic organs (2 sources)Vaginitis and vulvovaginitis; Translations: [Vaginitis and vulvovaginitis in diseases classified elsewhere]Onset: 62-37-2435MyzzmghiTjhup circulatory disease (1 source)Cardiovascular symptoms; Translations: [Other specified symptoms and signs involving the circulatory and respiratory systems] Resolved: 86-97-6692FocozewhBgdei complications of ; puerperium affecting management of mother (1 source)Failed medical induction of labor; Translations: [FAILED MEDICAL INDUCTION OF LABOR]Onset: 79-74-1012VvseqravTfoye complications of ; puerperium affecting management of mother (1 source)Endocrine, nutritional and metabolic diseases complicating childbirth; Translations: [ENDOCRN NUTR MET DZ COMP CHILDBIRTH]Onset: 50-51-0331Dshyqbdr Other complications of (5 sources)Maternal care for excessive growth, third trimester, not applicable or unspecified; Translations: [MAT CARE EXCSS FTL GRTH 3RD TRI UNS] Onset: 25-35-1046EtqlxlzoYeugx lower respiratory disease (1 source)Cough; Translations: [Cough, unspecified] Resolved: 70-70-6614UonhdcokXfklo lower respiratory disease (7 sources)Snoring; Translations: [Snoring]Onset: 447471-39-6043Vdotfjgi Other lower respiratory disease (5 sources)Shortness of breath; Translations: [Shortness of breath]Onset: 36-73-9754RgqwtmejStrsb lower respiratory disease (1 source)Snoring; Translations: [Snoring]Onset: 62-53-6703UjzoeclbRukvc nervous system disorders (20 sources)Impairment of balance; Translations: [Other abnormalities of gait and mobility]Onset: 903313-59-1080DdnilghmEyfmt skin disorders (1 source)Hirsutism; Translations: [Hirsutism]Onset: 50-89-8020EmdlionhJbwvh upper respiratory disease (1 source)Nasal congestion; Translations: [Nasal congestion] Resolved: 55-52-6434NmkkcbznIkusst media and related conditions (20 sources)Acute transudative otitis media; Translations: [Other acute nonsuppurative otitis media, unspecified ear]Onset: 837208-99-4948Bnywgvud Residual codes; unclassified (1 source)40 weeks gestation of ; Translations: [40 WEEKS GESTATION OF ]Onset: 08-97-3685IonmtmtkGnklhuvl codes; unclassified (1 source)37 weeks gestation of ; Translations: [37 WEEKS GESTATION OF ]Onset: 38-81-0107RcdzewboPtkeeluq codes; unclassified (1 source)30 weeks gestation of ; Translations: [30 WEEKS GESTATION OF ]Onset: 19-30-9262HakouvdhRmijvlwv codes; unclassified (1 source)25 weeks gestation of ; Translations: [25 WEEKS GESTATION OF ]Onset: 44-56-1408UrdkezcsBimkxuqa codes; unclassified (1 source)Gestation period, 33 weeks; Translations: [33 weeks gestation of ] Resolved: 24-41-0695OqilxxxxWcwjbhwo codes; unclassified (3 sources)History of uterine scar from previous surgery; Translations: [History of uterine scar from previoussurgery]Onset: 25-91-6579VkmobkbeVazkbabv codes; unclassified (1 source)Gestation period, 34 weeks; Translations: [34 weeks gestation of ] Resolved: 75-00-8693YrmbonowMwjfluiv codes; unclassified (7 sources)Family history of breast cancer; Translations: [Family history of malignant neoplasm of breast]Onset: 733640-25-4429JidnzoumLjojylle codes; unclassified (1 source)Family history of malignant neoplasm of breast; Translations: [Family history of malignant neoplasmof breast]Onset: 17-90-2441PbrdqulhNutxweqq codes; unclassified (2 sources)Other specified health status; Translations: [Other specified health status]Onset: 09-06-8440RfxihvndEvuqtvsvegj; intervertebral disc disorders; other back problems (20 sources)Neck pain; Translations: [Cervicalgia]Onset: EpisodicSyncope (13 sources)Near syncope; Translations: [Syncope and collapse]Onset: 05-15-2024 32-97-9026KmmspxaxDtdqmluoikce (1 source)Insulin resistance, unspecified; Translations: [Insulin resistance, unspecified]Onset: 05-15-2024 Results Test NameValueInterpretationReference RangeFacilityRECURRENT VAGINITIS (HTRX)on 87-30-6835VCCUYMZJE GZVWGCV3LXBW HealthcareATOPOBIUM VAGINAENot detectedNOMS HealthcareBVAB 2,3 (BACTERIAL VAGINOSIS ASSOCIATED BACTERIA 2, 3); MOBILUNCUS MLH1WHFL HealthcareBVAB 2,3 (BACTERIAL VAGINOSIS ASSOCIATED BACTERIA 2, 3); MOBILUNCUS SPPNot detectedNOMS HealthcareCANDIDA ALBICANS, PARAPSILOSIS, PXIVPXLEHQ5IUGL HealthcareCANDIDA ALBICANS, PARAPSILOSIS, TROPICALISNot detected NOMS HealthcareCANDIDA JOUUXRLL4ZRUM HealthcareCANDIDA GLABRATANot detectedNOMS HealthcareCANDIDA CXJLZS7DPYI HealthcareCANDIDA KRUSEINot detectedNOMS HealthcareCHLAMYDIA MKLKOIVRSLG2NHLJ HealthcareCHLAMYDIA TRACHOMATISNot detected NOMS HealthcareGARDNERELLA SMUJYZFYG5GXAQ HealthcareGARDNERELLA VAGINALISNot detectedNOMS HealthcareMEGASPHAERA (TYPES 1, 2)0NOMS HealthcareMEGASPHAERA (TYPES 1, 2)Not detectedNOMS HealthcareMYCOPLASMA GMIHNBZGWZ9KEAM Healthcare MYCOPLASMA GENITALIUMNot detectedNOMS HealthcareNEISSERIA NJMHKMGIHYS7UOBY HealthcareNEISSERIA GONORRHOEAENot detectedNOMS HealthcareTRICHOMONAS VAGINALIS0 NOMS HealthcareTRICHOMONAS VAGINALISNot detectedNOMS HealthcareNOMS Healthcare Laboratory - Chemistry and Chemistry - challengeOrdered By: Seamus Grier on 29-66-4399Bgwp T4 [Mass/Vol]1.04 ng/dL0.76-1.46[facility] TSH Qn3.811 m[IU]/LHigh0.358-3.740[facility] HospitalNo Panel InformationOrdered By: Seamus Grier on 71-87-0469Kdgk Triiodothyronine2.21 pg/mL2.18-3.98[facility] HospitalUS THYROIDon 80-80-7242JS THYROID EXAM: US THYROID HISTORY: Samson's thyroiditis. [...] II, MD, PHD at 25-Jul-2024 06:17:16 AM [facility] TeleradiologyNormalNot AvailableTRANSTHORACIC ECHO (TTE) COMPLETEon 46-63-0035JNTRSQWKBSXPH ECHO (TTE) [address], [address], [place] [address] TRANSTHORACIC ECHOCARDIOGRAM REPORT Patient Name: REBECCA HOLLY Sanz Physician: [id number] Fran Velazquez MD, [facility] Study Date: 07/23/2024 Ordering Provider: Julius VELAZQUEZ MRN/PID: [id number] Fellow: Nurse: Date of /Age: 1 1990 / 34 years Cost Estimator: Muna Landeros [facility], T Gender Assigned at F Additional Staff: : Height: 165.10 cm Admit Date: Weight: 126.10 kg Admission Status: BSA / BMI: 2.28 m2 / 46.26 Department Location: [facility] kg/m2 [facility] Blood Pressure: 128 /76 mmHg Study Type: TRANSTHORACIC ECHO (TTE) COMPLETE Diagnosis/ICD: Shortness of breath-R06.02; Dizziness and giddiness-R42 Indication: Tachycardia, Palpitations, Pre-Syncope, Dizziness, Morbid Obesity CPT Codes: Echo Complete w Full Doppler-39729 Study Detail: The following Echo studies were [...] normal. There is no indication of pulmonic valveregurgitation. Pericardium: No pericardial effusion noted. Aorta: The [...] (< 30mmHg) IVC Roxanne (more content not included)...[facility] HospitalCA tilt table teston 58-14-4342VH tilt table testUNIVERSITY [facility] [place] [address] Cardiology Report Signed Patient: Rebecca White MR#: [id number] 38 : 1990 Acct:[id number] Age/Sex: 34 / F ADM Date: 06/17/24 Loc: Room: Type: [facility] Attending Dr: Fran Velazquez MD Copies to: [...] Busch MD 06/17/24 1022 Signed By: 06/18/24 0836[facility] Physician GroupSTRESS TEST ONLYon 05-28-2024 STRESS TEST [address], [address] [place] [address] Exercise Stress Test Patient Name: REBECCA WHITE Ordering Provider: [id number] FRAN VELAZQUEZ Study Date: 05/28/2024 Reading Physician: [id number] Fran Velazquez MD, [facility] MRN/PID: C Supervising Physician: [id number] Sushant Busch MD Fellow: Date of /Age: 1 1990 / 34 years Fellow: Gender: F Nurse: Richardson Hebert RN Admission Status: Cost Estimator: NA Height: 165.10 cm Technologist: Weight: 126.10 kg Additional Staff: BSA: 2.28 m2 BMI: 46.26 kg/m2 Patient Location: Study Type: STRESS TEST ONLY Diagnosis/ICD: Shortness of breath-R06.02; Palpitations-R00.2; Syncope and collapse-R55 Indication: Syncope CPT Codes: Stress Test Interpretation-84398; Stress Test Supervision-04827 Falls Risk: Low: Patient has low risk [...] normal. The test was terminated due to: dyspnea.Patient has met the discharge criteria and is discharged to home. Double Product (HR x BP): 279. Baseline ECG: Resting ECG showed normal sinus rhythm with nonspecific ST-T wave changes and PRWP. Stress ECG: Stress ECG showed sinus tachycardia. No ST changes. Stress Stage Data: + +---+------+-------+ HR Sys BP Daniel BP + +---+------+-------+ Baseline Resting 92 128 86 + +---+------+-------+ Baseline Standing 96 132 78 + +---+------+-------+ Stage I 148 138 76 + +---+------+-------+ Stage II 164 168 86 + +---+------+-------+ Recovery ECG: Recovery ECG showed normal sinus rhythm, with no abnormal findings. The heart rate recovery was normal. + +---+------+-------+ HR Sys BP Daniel BP + +---+------+-------+ Recovery I 164 170 82 + +---+------+-------+ Recovery II 155 168 78 + +---+------+-------+ Recovery III 120 126 72 + +---+------+-------+ Recovery IV 107 128 86 + +---+------+-------+ Additional Findings: No comparison study available. Summary: 1. Normal ECG Stress Test. 2. Adequate level of stress achieved. 3. No ECG changes from baseline. 4. No electrocardiographic or clinical evidence for ischemia at maximal workload. 5. No comparison study available. [id number] Fran Velazquez MD, FACC Electronically signed on 06/11/2024 at 12:11:24 AM Final [facility] HospitalBasophils Auto (Bld) [#/Vol]on 97-11-5358Yzjhqezfr (Bld) [#/Vol]Automated basophil count0.0-0.1 [facility] HospitalBasophils (Bld) [#/Vol]0.1 10 3/uL0.0-0.1 [facility] HospitalBasophils/100 WBC Auto (Bld)on 05-17-2024 Basophils/100 WBC (Bld)Automated basophil %0.2-2.0[facility] HospitalBasophils/100 WBC (Bld)0.9 %0.2-2.0[facility] Cholesterol in LDL Calc [Mass/Vol]on 75-54-0911Jdgobyfgvkw in LDL [Mass/Vol] Cholesterol in LDL [Mass/volume] in Serum or Plasma by calculationClinton Memorial HospitalComment on above:<100 mg/dl BHFOOCA969-461 mg/dl NEAR OR ABOVE TSUDGLG444-979 mg/dl BORDERLINE XXZR145-127 mg/dl HIGH>190 mg/dl VERY HIGH Cholesterol in LDL [Mass/Vol]122.0 mg/dLClinton Memorial HospitalComment on above:<100 mg/dl OBNVRXW780-076 mg/dl NEAR OR ABOVE NUREBBK059-180 mg/dl BORDERLINE GAQE796-349 mg/dl HIGH>190 mg/dl VERY HIGHCholesterol in VLDL Calc [Mass/Vol]on 79-05-1933Mgmgorwkvkf in VLDL [Mass/Vol]Cholesterol in VLDL [Mass/volume] in Serum or Plasma by calculationClinton Memorial Hospital Cholesterol in VLDL [Mass/Vol]39.8 mg/dLCl[facility] Memorial Hospital Eosinophils/100 WBC Auto (Bld)on 70-26-7710Vwxbpegcetk/100 WBC (Bld)Automated eosinophil %0.9-7.0[facility] HospitalEosinophils/100 WBC (Bld)3.3 %0.9-7.0[facility] HospitalErythrocyte distribution width Auto (RBC) [Ratio]on 09-53-4431Kahryssdgju distribution width (RBC) [Ratio] Erythrocyte distribution width [Ratio] by Automated count11.0-15.0[facility] HospitalErythrocyte distribution width (RBC) [Ratio]14.6 % 11.0-15.0[facility] HospitalEstimated glomerular filtration rate (GFR) non- Americanon 03-79-0762DCB/1.73 sq M.predicted among non-blacks MDRD (S/P/Bld) [Vol rate/Area]Estimated glomerular filtration rate (GFR) non- >=60 mL/min/1.73m 2FSouthwest General Health CenterGFR/1.73 sq M.predicted among non-blacks MDRD (S/P/Bld) [Vol rate/Area]mL/min/{1.73_m2}>=60 mL/min/1.73m 2FSouthwest General Health CenterGlobulin Calc (S) [Mass/Vol]on 75-85-6533Hwmxhies (S) [Mass/Vol]Serum globulin measurement by calculation (mass/volume)[facility] HospitalGlobulin (S) [Mass/Vol]3.2 g/dL [facility] HospitalHematocrit Auto (Bld) [Volume fraction]on 86-51-5364Wqjamrvbhd (Bld) [Volume fraction]Hematocrit [Volume Fraction] of Blood by Automated count36.0-48.0[facility] HospitalHematocrit (Bld) [Volume fraction]42.2 %36.0-48.0[facility] Hemoglobin [Mass/volume] in Bloodon 01-84-5183Zqsgiauvng (Bld) [Mass/Vol] Hemoglobin [Mass/volume] in Blood12.0-16.0[facility] Hemoglobin (Bld) [Mass/Vol]13.8 g/dL12.0-16.0[facility] Laboratory - Chemistry and Chemistry - challengeon 17-75-4127Rvbxvob [Mass/Vol] 3.4 g/dL3.4-5.0[facility] HospitalALP [Catalytic activity/Vol]69 U/Q24-793PodduoxyrClinton Memorial HospitalALT [Catalytic activity/Vol]45 U/L 14-59[facility] HospitalAST [Catalytic activity/Vol]37 U/L15-37 [facility] HospitalBilirubin [Mass/Vol]0.5 mg/dL0.2-1.0[facility] HospitalCalcium [Mass/Vol]8.9 mg/dL8.5-10.1FSouthwest General Health CenterChloride [Moles/Vol]103 mmol/X88-234BmtmrtnweClinton Memorial HospitalCholesterol [Mass/Vol]207 mg/dLHigh<=200[facility] Cholesterol in HDL [Mass/Vol]46 mg/uS16-30AirujdpzsCl[facility] Hospital Comment on above:> or =60 mg/dl - LOW CARDIOVASCULAR RISK<40 mg/dl - HIGH CARDIOVASCULAR RISKCO2 [Moles/Vol]25.8 mmol/L21.0-32.0[facility] HospitalCreatinine [Mass/Vol]0.89 mg/dL0.55-1.02[facility] Free T4 [Mass/Vol]0.98 ng/dL0.76-1.46[facility] HospitalGFR/1.73 sq M.predicted MDRD (S/P/Bld) [Vol rate/Area]mL/min/{1.73_m2}>=60 mL/min/1.73m 2 [facility] HospitalGlucose [Mass/Vol]100 mg/dA83-146RoyhmjxwfClinton Memorial HospitalPotassium [Moles/Vol]3.9 mmol/L3.5-5.1FSouthwest General Health CenterProtein [Mass/Vol]6.6 g/dL6.4-8.2FSouthwest General Health Center Sodium [Moles/Vol]139 mmol/I531-436VvlrjalfnClinton Memorial HospitalTriglyceride [Mass/Vol]199 mg/dLHigh<=150[facility] HospitalTSH Qn4.116 m[IU]/LHigh0.358-3.740[facility] HospitalUrea nitrogen [Mass/Vol] 10.0 mg/dL7.0-18.0[facility] HospitalUrea nitrogen/Creatinine [Mass ratio]11.2 mg/mgClinton Memorial HospitalLaboratory - Hematology and Cell countson 49-39-3977Juimhoyf granulocytes/100 WBC (Bld)0.4 %0.0-0.5 [facility] HospitalLeukocytes [#/volume] corrected for nucleated erythrocytes in Blood by Automated counon 07-54-3716VLP corrected for nucl RBC Auto (Bld) [#/Vol]Leukocytes [#/volume] corrected for nucleated erythrocytes in Blood by Automated coun4.0-11.0[facility] HospitalWBC corrected for nucl RBC Auto (Bld) [#/Vol]7.9 10 3/uL4.0-11.0[facility] HospitalLymphocytes Auto (Bld) [#/Vol]on 43-08-9728Kqesinvrqra (Bld) [#/Vol] Lymphocytes [#/volume] in Blood by Automated count1.2-3.8[facility] HospitalLymphocytes (Bld) [#/Vol]2.8 10 3/uL1.2-3.8[facility] HospitalLymphocytes/100 WBC Auto (Bld)on 02-34-4483Gbzsxtxaohu/100 WBC (Bld)Lymphocytes/100 leukocytes in Blood by Automated count20.5-60.0[facility] HospitalLymphocytes/100 WBC (Bld)35.1 %20.5-60.0[facility] CenterH Auto (RBC) [Entitic mass]on 31-54-7220IGO (RBC) [Entitic mass]MCH [Entitic mass] by Automated count26.7-34.0[facility] Medical CenterH (RBC) [Entitic mass]28.6 pg26.7-34.0[facility] CenterHC Auto (RBC) [Mass/Vol]on 15-90-9465URRB (RBC) [Mass/Vol]MCHC [Mass/volume] by Automated count29.9-35.2FMemorial Health System Marietta Memorial HospitalHC (RBC) [Mass/Vol]32.7 g/dL29.9-35.2FSouthwest General Health CenterMCV Auto (RBC) [Entitic vol]on 82-00-5300ZMY (RBC) [Entitic vol]MCV [Entitic volume] by Automated count81.0-99.0[facility] HospitalMCV (RBC) [Entitic vol] 87.6 fL81.0-99.0[facility] HospitalMonocytes Auto (Bld) [#/Vol]on 10-15-1455Oiyldrlwl (Bld) [#/Vol]Automated blood monocyte count0.3-0.8[facility] HospitalMonocytes (Bld) [#/Vol]0.6 10 3/uL0.3-0.8[facility] HospitalMonocytes/100 WBC Auto (Bld)on 51-33-0137Xlqpvfnnr/100 WBC (Bld)Automated monocyte %1.7-12.0[facility] Monocytes/100 WBC (Bld)7.6 %1.7-12.0[facility] HospitalNeutrophils Auto (Bld) [#/Vol]on 54-55-4446Cstphwviftx (Bld) [#/Vol]Neutrophils [#/volume] in Blood by Automated count1.4-6.5FSouthwest General Health CenterNeutrophils (Bld) [#/Vol]4.2 10 3/uL1.4-6.5FSouthwest General Health CenterNeutrophils/100 WBC Auto (Bld)on 79-42-5383Kdsbndabtfl/100 WBC (Bld)Automated neutrophil % 43.0-75.0[facility] HospitalNeutrophils/100 WBC (Bld)52.7 % 43.0-75.0[facility] HospitalNo Panel Informationon 05-17-2024 Eosinophils # (Auto)0.3 10 3/uL0.0-0.7FSouthwest General Health CenterImmature Granulocyte # (Auto)0.03 10 3/uL0.00-0.03[facility] Platelet mean volume Auto (Bld) [Entitic vol]on 26-19-2776Heoyjzek mean volume (Bld) [Entitic vol]Platelet mean volume [Entitic volume] in Blood by Automated count9.5-13.5FSouthwest General Health CenterPlatelet mean volume (Bld) [Entitic vol]9.7 fL9.5-13.5FSouthwest General Health CenterPlatelets Auto (Bld) [#/Vol]on 56-52-6345Bkvfacyal (Bld) [#/Vol]Platelets [#/volume] in Blood by Automated inofw749-877WfejugujpClinton Memorial HospitalPlatelets (Bld) [#/Vol] 332 10 3/uL207-990JkraiykdyClinton Memorial HospitalRB Auto (Bld) [#/Vol]on 12-10-8197HPL (d) [#/Vol]Erythrocytes [#/volume] in Blood by Automated count 4.20-5.40[facility] HospitalRB (d) [#/Vol]4.82 10 6/uL4.20-5.40 [facility] Toledoerum or plasma albumin/globulin mass ratioon 35-18-8983Vjrnmdd/Globulin [Mass ratio]Serum or plasma albumin/globulin mass ratioClinton Memorial HospitalAlbumin/Globulin [Mass ratio]1.1 {ratio} [facility] Toledoerum or plasma anion gap determinationon 77-46-2589Mynju gap [Moles/Vol]Serum or plasma anion gap determinationClinton Memorial HospitalAnion gap [Moles/Vol]14.1 mmol/LFHarrison Community Hospitalerum or plasma thyroglobulin antibody assay (units/volume)on 90-56-2299Dcckoiuwpfnxj Ab QnSerum or plasma thyroglobulin antibody assay (units/volume)Abnormal0.0-0.9[facility] HospitalComment on above: Thyroglobulin Antibody measured by Sana CoulterMethodologyIt should be noted that the presence of thyroglobulinantibodies may not be pathogenic nor diagnostic, especiallyat very low levels. The assay progressive assembler and fitter has found thatfour percent of individuals without evidence of thyroiddisease or auto immunity will have positive TgAb levels upto 4 IU/mL.Performed at: [facility] [place], [place] [id number] Director: Marcello Velazquez PhD, Phone: [phone] Ab Qn1.4 [IU]/mLAbnormal0.0-0.9[facility] HospitalComment on above:Thyroglobulin Antibody measured by Wardrobe HousekeeperMethodologyIt should be noted that the presence of thyroglobulinantibodies may not be pathogenic nor diagnostic, especiallyat very low levels. The assay progressive assembler and fitter has found thatfour percent of individuals without evidence of thyroiddisease or autoimmunity will have positive TgAb levels upto 4 IU/mL.Performed at: [facility] [place], [place] [id number] Director: Marcello Velazquez PhD, Phone: [phone] or plasma thyroperoxidase antibody assay (units/volume)on 75-86-3340VEN Ab QnSerum or plasma thyroperoxidase antibody assay (units/volume)0-34[facility] HospitalTPO Ab Qn19 [IU]/mL0-34[facility] Hospital Toledoerum or plasma total cholesterol/high density lipoprotein (HDL) cholesterol mass nayla 50-47-5012Vyugbqwzsit.total/Cholesterol in HDL [Mass ratio]Serum or plasma total cholesterol/high density lipoprotein (HDL) cholesterol mass [facility] HospitalComment on above:3.3 - 4.4 LOW RISK4.4 - 7.1 AVERAGE RISK7.1 - 11.0 MODERATE RISK>11.0 HIGH RISKCholesterol.total/Cholesterol in HDL [Mass ratio]4.5 {ratio}[facility] HospitalComment on above:3.3 - 4.4 LOW RISK4.4 - 7.1 AVERAGE RISK7.1 - 11.0 MODERATE RISK>11.0 HIGH RISKECG 12 Leadon 35-01-3290Hvebl rhythm, rate 84.CPASalem [facility] Center Work Phone: Influenza virus B Ag [Presence] in Upper respiratory specimen by Rapid immunoassayon 71-49-0651WLYCP Ag IA.rapid Ql (Nph)Influenza virus B Ag [Presence] in Upper respiratory specimen by Rapid immunoassay [facility] HospitalFLUBV Ag IA.rapid Ql (Nph)NegativeClinton Memorial HospitalNo Panel Informationon 43-91-6729Gmrrkotwf Type A (Rapid) NegativeClinton Memorial HospitalPO SARS CoV-2 AntigenNegativeClinton Memorial HospitalIGP,APTIMA HPV,AGE GDLNon 44-00-7879HOG GDLN ACOG TESTINGNote.NOMS HealthcareComment on above:TESTS RESULT FLAG UNITS REF RANGE LAB Clinician Provided Cytology Information Source.............Cervix;Endocervix No. of containers..01 ThinPrep Vial Age Humble ANG Mary... FLAG LEGEND: L-Low Normal,H-High Normal,LL-Alert Low,HH-Alert High <-Panic Low,>-Panic High,A-Abnormal,AA-Critical Abnormal Performed at: 01 =[address] [address] Anaid Hercules MD, HPV APTIMANegativeNegativeNOMS HealthcareComment on above:This nucleic acid amplification test detects fourteen high- risk HPV types (16,18,31,33,35,39,45,51,52,56,58,59,66,68) without differentiation. Performed at: =[address] [id number] Cord Maker: Anaid Hercules MD, Phone: [phone] Performed at: [address] [id number] Cord Maker: Anaid Hercules MD, Phone: [phone] IGP, APTIMA HPV, RFX 16/18,45Note.NOMS HealthcareComment on above:TESTS RESULT FLAG UNITS REF RANGE LAB DIAGNOSIS: 02 NEGATIVE FOR INTRAEPITHELIAL LESION OR MALIGNANCY. Specimen adequacy: 02 Satisfactory for evaluation. Endocervical and/or squamous metaplastic cells (endocervical component) are present. Performed by: 02 Asael Carlos, Special Population Paraprofessional ([facility]) . 02 Note: Note 02 The Pap [...] <-Panic Low,>-Panic High,A-Abnormal,AA-Critical Abnormal Performed at: 02 [address] [facility] [address] [address] Anaid Hercules MD, BRUSH-SPATULA CERVIX ENDOCERVIX CLINISYNCNOMS HealthcareALL BASIC METABOLIC PANELon 42-25-3880Idfpq gap [Moles/Vol]13.7 mmol/LNOMS HealthcareCalcium [Mass/Vol]8.8 mg/dL8.5 - 10.1 mg/dL NOMS HealthcareChloride [Moles/Vol]105 mmol/L98 - 107 mmol/LNOMS HealthcareCO2 [Moles/Vol]27.2 mmol/L21.0 - 32.0 mmol/LNOMS HealthcareCreatinine [Mass/Vol]0.85 mg/dL0.55 - 1.02 mg/dLNOMS HealthcareGFR/1.73 sq M.predicted CKD-EPI (S/P/Bld) [Vol rate/Area]>60>=60 mL/min/1.73m 2NOMS HealthcareGlucose [Mass/Vol]81 mg/dL74 - 106 mg/dLNOMS HealthcarePotassium [Moles/Vol]3.9 mmol/L3.5 - 5.1 mmol/LNOMS HealthcareSodium [Moles/Vol]142 mmol/L136 - 145 mmol/LNOMS HealthcareTBH EGFR- NON AF NIGERIEN>60>=60 mL/min/1.73m 2NOMS HealthcareUrea nitrogen [Mass/Vol]9 mg/dL7.0 - 18.0 mg/dLNOMS HealthcareUrea nitrogen/Creatinine [Mass ratio]10.6 mg/mgNOMS HealthcareCLINISYNCNOMS HealthcareMR venography head wo conon 90-58-5222MX venography head wo [facility] [place] [address] MRI Report Signed Patient: Rebecca White MR#: [id number] 38 : 1990 Acct:[id number] Age/Sex: 33 / F ADM Date: 11/09/23 Loc: MR Room: Type: [facility] Attending Dr: Naya JUÁREZ Copies to: FRANCK [...] Manjeet Sargent M.D.11/09/2023 9:34 AM Dictation Location: [place] [address] Transcribed By: SON 11/09/23 0934 Dictated By: Manjeet Sargent II, MD 11/09/23 0918 Signed By: 11/09/23 0934[facility] Physician GroupCCF CMP (CMP) (FOR REMOTE CRITICAL ACCESS HOSPITAL USE)on 58-45-6149Vpujzbt [Mass/Vol]3.1 g/dLLow3.4 - 5.0 g/dLNOGA Healthcare ALBUMIN GLOBULIN RATIO0.8NOGA HealthcareALP [Catalytic activity/Vol]66 U/L46 - 116 U/LNOMS HealthcareALT [Catalytic activity/Vol]38 U/L14 - 59 U/LNOMS HealthcareAnion gap [Moles/Vol]10.5 mmol/LNOMS HealthcareAST [Catalytic activity/Vol]25 U/L15 - 37 U/LNOMS HealthcareBilirubin [Mass/Vol]0.4 mg/dL0.2 - 1.0 mg/dLNOMS HealthcareCalcium [Mass/Vol]8.7 mg/dL8.5 - 10.1 mg/dLNOMS HealthcareChloride [Moles/Vol]100 mmol/L98 - 107 mmol/LNOMS HealthcareCO2 [Moles/Vol]30.3 mmol/L21.0 - 32.0 mmol/LNOMS HealthcareCreatinine [Mass/Vol]0.76 mg/dL0.55 - 1.02 mg/dLNOMS HealthcareGFR/1.73 sq M.predicted CKD-EPI (S/P/Bld) [Vol rate/Area]>6060 - PINFNOGA HealthcareGlobulin (S) [Mass/Vol]4.1 g/dLNOGA HealthcareGlucose [Mass/Vol]78 mg/dL74 - 106 mg/dLNOGA HealthcareInterpretation and review of laboratory resultsAbnormalNOMS HealthcarePotassium [Moles/Vol]3.8 mmol/L3.5 - 5.1 mmol/LNOMS HealthcareProtein [Mass/Vol]7.2 g/dL6.4 - 8.2 g/dL NOMS HealthcareSodium [Moles/Vol]137 mmol/L136 - 145 mmol/LNOMS HealthcareTBH EGFR-NON AF NIGERIEN>6060 - PINFNOMS HealthcareUrea nitrogen [Mass/Vol]12.0 mg/dL7.0 - 18.0 mg/dLNOGA HealthcareUrea nitrogen/Creatinine [Mass ratio]15.8 mg/mgNOMS HealthcareCLINISYNCNOMS HealthcareAerobic Cultureon 56-52-1335Dfngvnm CultureComment Aerobic/anaerobic No Growth 2 Days Comment Aerobic/anaerobic No Anaerobes Isolated 3 Days Comment Aerobic/anaerobic Gram Stain Result No Bacteria Seen No White Blood Cells Seen No Red Blood Cells Seen PERFORMED BY: [facility] [address] [id number] PATHOLOGIST EGG SMELLER KELLY WIGGINS M.D.NormalPhysicians Regional Medical Center - Pine Ridge Physician GroupComment on above:Performed By: #### CSF TP, CSF PCR PANEL, CSFCCDIFF #2, GS, CSF GLU, AERC ####[facility] [address] [place] [address] USAAerobic culture Ordered By: Naya Butler on 62-18-9970Kmnielrt identified Aer cx Nom (Unsp spec)Aerobic cultureClinton Memorial HospitalAnaerobic cultureOrdered By: Naya Butler on 94-28-6803Qbqkezid identified Anaer cx Nom (Unsp spec) Anaerobic cultureClinton Memorial HospitalCSF PCR Panelon 09-93-2895SRZ PCR PanelComment Aerobic/anaerobic Cytomegalovirus Not detected Cryptococcus neoformans or gattii 9002 Not detected Escherichia coli K1 Not detected Enterovirus Not detected Haemophilus influenzae (reported as H flu) Not detected Human herpesvirus 6 Not detected Herpes simplex virus 1 Not detected Herpes simplex virus 2 DNA [Presence] in Cerebral spinal fluid by NIMA with non- probe detection Not detected Listeria monocytogenes (reported as listeriosis) Not detected Neisseria meningitidis - reported as meningococcal disease Not detected Human parechovirus Not detected Streptococcus pneumoniae - reported at ISP Not detected Group B Strep (Streptococcus agalactiae) Not detected Varicella zoster virus Not detected PERFORMED BY: [place] [address] PATHOLOGIST EGG SMELLER KELLY WIGGINS M.D.NormalPhysicians Regional Medical Center - Pine Ridge Physician GroupComment on above:Performed By: #### CSF TP, CSF PCR PANEL, CSFCCDIFF #2, GS, CSF GLU, AERC #### [place] [address] USACell Count Differential,CSFon 21-80-3717Bklrzmggrx, CSF ClearNormalClearThe [facility] Physician GroupComment on above:Order Comment: Comment tube 1Performed By: #### CSFCCDIFF #### [place] [id number] USAColor, CSFColorlessNormalColorlessPhysicians Regional Medical Center - Pine Ridge Physician GroupComment on above:Order Comment: Comment tube 1Performed By: #### CSFCCDIFF #### [address] [address] USACSF Supernatant ColorColorlessNormalColorlessThe [facility] Physician GroupComment on above:Order Comment: Comment tube 1Performed By: #### CSFCCDIFF #### [address] [address] USACSF Volume, Total33.5 mLNormalThe [facility] Physician GroupComment on above:Order Comment: Comment tube 1Performed By: #### CSFCCDIFF #### [address] [address] USALymphocytes, CVX1DktghnQtd [facility] Physician Group Comment on above:Order Comment: Comment tube 1Result Comment: The reference interval and other method performance specifications have not been established for this body fluid. The test result must be integrated into the clinical context for interpretation.Performed By: #### CSFCCDIFF #### [place] [address] USAMonocytes, HXG0UyzewoXkmPhysicians Regional Medical Center [facility] Boulevard Physician GroupComment on above:Order Comment: Comment tube 1Result Comment: The reference interval and other method performance specifications have not been established for this body fluid. The test result must be integrated into the clinical context for interpretation.Performed By: #### CSFCCDIFF #### [place] [address] USARBC, CSF5 /uLNormPhysicians Regional Medical Center - Col[facility] Boulevard Physician GroupComment on above:Order Comment: Comment tube 1Result Comment: The reference interval and other method performance specifications have not been established for this body fluid. The test result must be integrated into the clinical context for interpretation.Performed By: #### CSFCCDIFF #### [place] [address] USATNC, CSF1 /uLNormal0-5The [facility] Physician GroupComment on above:Order Comment: Comment tube 1Performed By: #### CSFCCDIFF #### [place] [address] USATotal Count, EYO7EsxchsSxkPending sale to [facility] Comment on above:Order Comment: Comment tube 1Performed By: #### CSFCCDIFF #### [place] [address] USATube Number Tested, CSFTube Number: 1NormalPhysicians Regional Medical Center - Pine Ridge Physician GroupComment on above:Order Comment: Comment tube 1Result Comment: PERFORMED BY: [place] [address] PATHOLOGIST EGG SMELLER KELLY WIGGINS M.D.Performed By: #### CSFCCDIFF #### [place] [address] USACell Count Differential,CSF #2on 01-36-0127Dcuffuxzeu, CSF ClearNormalClearPhysicians Regional Medical Center [facility] Physician GroupComment on above:Performed By: #### CSF TP, CSF PCR PANEL, CSFCCDIFF #2, GS, CSF GLU, AERC ####[address] [address] USAColor, CSFColorlessNormal ColorlessPhysicians Regional Medical Center - Pine Ridge Physician GroupComment on above:Performed By: #### CSF TP, CSF PCR PANEL, CSFCCDIFF #2, GS, CSF GLU, AERC ####[facility] ical [address] [place] [address] USACSF Supernatant ColorColorless NormalColorOrlando Health [facility] Physician GroupComment on above:Performed By: #### CSF TP, CSF PCR PANEL, CSFCCDIFF #2, GS, CSF GLU, AERC ####[address] [address] USACSF Volume, Total33.5 mLNormal The [facility] Physician GroupComment on above:Performed By: #### CSF TP, CSF PCR PANEL, CSFCCDIFF #2, GS, CSF GLU, AERC ####[address] [address] USALymphocytes, BYX0FlbbnlJmwPhysicians Regional Medical Center [facility] Physician [facility] HospitalComment on above:Result Comment: The reference interval and other method performance specifications have not been established for this body fluid. The test result must be integrated into the clinical context for interpretation.Performed By: #### CSF TP, CSF PCR PANEL, CSFCCDIFF #2, GS, CSF GLU, AERC ####[address] [address] USARBC, CSF1 /uLNormalThe [facility] Physician [facility] Comment on above:Result Comment: The reference interval and other method performance specifications have not been established for this body fluid. The test result must be integrated into the clinical context for interpretation.Performed By: #### CSF TP, CSF PCR PANEL, CSFCCDIFF #2, GS, CSF GLU, AERC ####[address] [address] USATNC, CSF2 /uLNormal0-5The [facility] Physician [facility] Comment on above:Performed By: #### CSF TP, CSF PCR PANEL, CSFCCDIFF #2, GS, CSF GLU, AERC ####[facility] [address] [place] [address] USATotal Count, IZL2OozlqeSciPending sale to [facility] Physician GroupComment on above: Performed By: #### CSF TP, CSF PCR PANEL, CSFCCDIFF #2, GS, CSF GLU, AERC ####[address] [place] [address] USATube Number Tested, CSFTube Number: 4NoPending sale to [facility] Physician GroupComment on above:Result Comment: PERFORMED BY: [facility] [address] [place] [id number] PATHOLOGIST EGG SMELLER KELLY WIGGINS M.D.Performed By: #### CSF TP, CSF PCR PANEL, CSFCCDIFF #2, GS, CSF GLU, AERC ####[facility] [place] [address] USACerebrospinal fluid appearance descriptionOrdered By: Naya Butler on 29-90-3516Copofsiipo (CSF)ClearCleWexner Medical Center Cerebrospinal fluid color identificationOrdered By: Naya Butler on 09-25-2023 Color (CSF)Color CSFColorToledo HospitalCerebrospinal fluid post-centrifugation appearance determinationOrdered By: Naya Butler on 36-28-7021Eqiyjwgtht (Spun CSF)ColorlessColorToledo HospitalAppearance (Spun CSF)Cerebrospinal fluid post-centrifugation appearance determinationColorToledo HospitalCerebrospinal fluid sample tube volume measurementOrdered By: Naya Butler on 43-39-3126Rdorkmad volume (CSF)33.5 mLRegency Hospital Toledopecimen volume (CSF) Cerebrospinal fluid sample tube volume measurementClinton Memorial HospitalColor CSFOrdered By: Naya Butler on 81-73-0448Ztkze (CSF)Colorless ColorlessClinton Memorial HospitalDetermination of appearance of cerebrospinal fluidOrdered By: Naya Butler on 59-65-5598Hszikycrtb (CSF) Cerebrospinal fluid appearance descriptionCleWexner Medical Center Eosinophil count CSFOrdered By: Naya Butler on 31-75-8652RUT EosinophilsN/A Clinton Memorial HospitalGlucose [Mass/volume] in Cerebral spinal fluid Ordered By: Naya Butler on 96-16-4213Ljzbrid (CSF) [Mass/Vol]60 mg/dL40- Clinton Memorial HospitalGlucose (CSF) [Mass/Vol]Glucose [Mass/volume] in Cerebral spinal acuno07-21ZhcahvfhoClinton Memorial HospitalGlucose, CSF #2on 78-46-3809Rrcedyf, CSF #260 mg/lNXabapp63-00Mdu [facility] Physician GroupComment on above:Performed By: #### CSF GLU #2, CSF TP #2 #### [facility] [address] [place] [address] USAGlucose, Spinal Fluidon 26-61-5331Prkckzd, Spinal Fluid62 mg/oYGarwku06-44Qng [facility] Physician GroupComment on above:Performed By: #### CSF TP, CSF PCR PANEL, CSFCCDIFF #2, GS, CSF GLU, AERC #### [facility] [address] [place] [address] USAGram Stainon 40-45-4205Gdljtldaiml observation Gram stain Nom (Unsp spec)Comment Aerobic/anaerobic Gram Stain Result No Bacteria Seen No White Blood Cells Seen No Red Blood Cells Seen PERFORMED BY: [place] [address] PATHOLOGIST EGG SMELLER KELLY WIGGINS M.D.NormalThe [facility] Physician [facility] HospitalComment on above:Performed By: #### CSF TP, CSF PCR PANEL, CSFCCDIFF #2, GS, CSF GLU, AERC #### [place] [address] USAGram stain for investigation of transfusion reaction Ordered By: Naya Butler on 10-73-7359Lcjjgmnpoye observation Gram stain Nom (Unsp spec)No Anaerobes Isolated 2 DaysClinton Memorial Hospital Microscopic observation Gram stain Nom (Unsp spec)No Anaerobes Isolated 3 Days Clinton Memorial HospitalGram stain microscopyOrdered By: Naya Butler on 13-04-7588Psyioyfolsj observation Gram stain Nom (Unsp spec)Gram stain microscopyClinton Memorial HospitalIR guided lumbar puncture LPon 02-06-4005BE guided lumbar puncture LPUNIVERSITY H[facility] Main [place] [address] [place] [address] Interventional Radiology Rpt Signed Patient: Rebecca White MR#: [id number] 38 : 1990 Acct:[id number] Age/Sex: 33 / F ADM Date: 09/25/23 Loc: XD Room: Type: [facility] Attending Dr: Naya JUÁREZ Copies to: FRANCK [...] Manjeet Sargent M.D.09/25/2023 10:34 AM Dictation Location: [place] [address] Transcribed By: [facility] 09/25/23 1034 Dictated By: Manjeet Sargent II, MD 09/25/231 Signed By: 09/25/23 1034[facility] Physician GroupLon 81-30-4419COtwcgvhr: [id number] Received: 09/25/23 Status: LORENZO Cervantes Num: [id number] Spec Type: Cytology Subm Dr: Manjeet Sargent II, MD Tissues: A CSF (CSF) Procedures: Cyto Prepstain, DIFF QWIK, PAPSTN Age/ Patient Sex Location Account Attending Physician Rebecca White 33/F XD [id number] Naya Butler, WINDOW REPAIRER-MEDICAL DATA ANALYST-C SPEC NUM: [id number] RECD: 09/25/23 STATUS: LORENZO DIXONDom NUM: [id number] ISABELLA: 09/25/23- DR: Manjeet Sargent II, MD ENTERED: 09/25/[address] [facility] DR: Alyssa Butterfield MD SPEC TYPE: Cytology DEPT: CNG ENTERED BY: [id number] RECV BY: [id number] ORDERED: Cyto Prepstain, DIFF QWIK, PAPSTN ORDERED: [...] are performed Specimen: [id number] Received: 09/25/23 Status: VANIANicolas Cervantes Num: [id number] Spec Type: Cytology Subm Dr: Manjeet Sargent II, MD Tissues: A CSF (CSF) Procedures: Cyto Prepstain, DIFF QWIK, PAPSTN Patient: Rebecca White Vicki [id number] (Continued) Specimen: [id number] Received: 09/25/23 (Continued) Signed (signature on file) Ashley Coulter MD 09/27/23 1158 Specimen: [id number] Received: 09/25/23 Status: LORENZO Cervantes Num: [id number] Spec Type: Cytology Subm Dr: Manjeet Sargent II, MD Tissues: A CSF (CSF) Procedures: Cyto Prepstain, DIFF QWIK, PAPSTN Patient: Rebecca White Vicki [id number] (Continued) Specimen: [id number] Received: 09/25/23 (Continued) CPT Codes 00034 Specimen: [id number] Received: 09/25/23 Status: LORENZO Cervantes Num: [id number] Spec Type: Cytology Subm Dr: Manjeet Sargent II, MD Tissues: A CSF (CSF) Procedures: Cyto Prepstain, DIFF QWIK, PAPSTN Patient: WhiteRebecca [id number] (Continued) Signed (signature on file) Bo-Jimmy Coulter MD 09/27/23 [facility] Physician GroupLymphocyte count CSFOrdered By: Naya Butler on 12-05-0381UDQ Gdkynuguunc1Lwxlwif[address] [place], [place] [address]Comment on above:The reference interval and other method performance specifications have not been established for this body fluid. The test result must be integrated into the clinical context for interpretation.Manual cerebrospinal fluid erythrocytes count (number/volume)Ordered By: Naya Butler on 09-32-1095H[facility] Manual cnt (CSF) [#/Vol]1 /Genesis HospitalComduane l. waters hospital on above: The reference interval and other method performance specifications have not been established for this body fluid. The test result must be integrated into the clinical context for interpretation.RBC Manual cnt (CSF) [#/Vol]Manual cerebrospinal fluid erythrocytes count (number/volume)Clinton Memorial HospitalComment on above:The reference interval and other method performance specifications have not been established for this body fluid. The test result must be integrated into the clinical context for interpretation. Meningitis+Encephalitis pathogens DNA and RNA panel - Cerebral spinal fluid by NIMA wiOrdered By: Naya Butler on 34-30-1497Lakoipksdt+Encephalitis pathogens DNA and RNA panel NIMA+non-probe (CSF)Meningitis+Encephalitis pathogens DNA and RNA panel - Cerebral spinal fluid by [facility] Meningitis+Encephalitis pathogens DNA and RNA panel NIMA+non-probe (CSF)Clinton Memorial HospitalMonocyte count CSFOrdered By: Naya Butler on 45-19-4038MNA MonocytesN/[facility] Medical CenterNeutrophil count CSF Ordered By: Naya Butler on 76-09-3250ECJ NeutrophilsN/[facility] CenterNo Panel InformationOrdered By: Naya Butler on 81-38-8046JNR Total Cells Bdsfjvy8ZdsuovycoClinton Memorial HospitalCSF Tube NumberTube number: 4FSouthwest General Health CenterNucleated cells [#/volume] in Cerebral spinal fluid by Manual countOrdered By: Naya Butler on 31-13-5096Angphdydt cells Manual cnt (CSF) [#/Vol]0.002 10*3/uL0-[facility] Nucleated cells Manual cnt (CSF) [#/Vol]Nucleated cells [#/volume] in Cerebral spinal fluid by Manual count0-[facility] General Health CenterProtein [Mass/volume] in Cerebral spinal fluidOrdered By: Naya Butler on 09-25-2023 Protein (CSF) [Mass/Vol]23 mg/wU85-32BhxynlnjfClinton Memorial HospitalProtein (CSF) [Mass/Vol]Protein [Mass/volume] in Cerebral spinal evafz80-32UnkizdizdClinton Memorial HospitalTotal Protein, CSF #2on 21-92-6350Mzlxp Protein, CSF #223 mg/uEUyskkt86-31Gez [facility] Physician GroupComment on above:Result Comment: PERFORMED BY: [place] [address] PATHOLOGIST EGG SMELLER KELLY WIGGINS M.D.Performed By: #### CSF GLU #2, CSF TP #2 #### [facility] [address] [place] [address] USATotal Protein, Spinal Fluidon 25-95-0542Pissx Protein, Spinal Fluid26 mg/nDZduqtz76-09Lwr [facility] Physician GroupComment on above: Result Comment: PERFORMED BY: [place] [address] PATHOLOGIST EGG SMELLER KELLY WIGGINS M.D.Performed By: #### CSF TP, CSF PCR PANEL, CSFCCDIFF #2, GS, CSF GLU, AERC ####[facility] [address] [place] [address] USASARS/FLU A+B/RSV by NAAT/Molecularon 82-11-3558GUMK/FLU A+B/RSV by NAAT/MolecularFLU A PCR Negative (qualifier value) FLU B [...] operators who are performing tests using either Ohmconnect or Citilog systems and is limited to laboratories that [...] specimen repeat. Fact Sheet for Healthcare Providers: https://www.fda.gov/media/815262/download Fact Sheet for Patients: https://www.fda.gov/media/068384/downloadNormalProMedica Rady Children'S HospitalComment on above:Performed By: #### COVFLR #### [facility] ([id number]) [address] [place] [address]Djfmbwvs Cervical or vaginal smear or scraping studyOrdered By: Chelita Mayen on 65-26-9136NVUSMercy Hospital South, formerly [facility] ACOG PANEL 2: 30 to 65on 03-03-2022..NormalThe [facility] on above:Result Comment: Performed at: WBPerformed By: #### [id number] #### [facility] [address] [address] [address] Roc CoulterAge Gdln ACOG Pnkhebe87-27JcoexqTayTwin City HospitalComment on above:Performed By: #### [id number] #### [facility] [address] [address] [address] Roc CoulterDIAGNOSIS:CommentOhioHealth Berger Hospital on above: Result Comment: NEGATIVE FOR INTRAEPITHELIAL LESION OR MALIGNANCY. Performed at: WBPerformed By: #### [id number] #### [facility] [address] [place] [address] Dr. oRc CoulterHPV AptimaNegativeNormalNegativeKing's Daughters Medical Center [place] on above:Result Comment: This nucleic acid amplification test detects fourteen high-risk HPV types (16,18,31,33,35,39,45,51,52,56,58,59,66,68) without differentiation. Performed at: =GPerformed By: #### [id number] #### [facility] [address] [address] [address] Roc CoulterHPDelia Genotype ReflexCommentOhioHealth Berger Hospital on above:Result Comment: Criteria not met, HPV Genotype not performed. Performed at: WBPerformed By: #### [id number] #### [facility] [address] [address] [address] Roc CoulterMethodology:CommentOhioHealth Berger Hospital on above: Result Comment: This liquid based ThinPrep(R) pap test was screened with the use of an image guided system. Performed at: WBPerformed By: #### [id number] #### [facility] [address] [place] [address] Dr. Roc CoulterNote:CommentOhioHealth Berger Hospital on above:Result Comment: The Pap smear is a screening test designed to aid in the detection of premalignant and malignant conditions of the uterine cervix. It is not a diagnostic procedure and should not be used as the sole means of detecting cervical cancer. Both false-positive and false-negative reports do occur. . Performed at: WBPerformed By: #### [id number] #### [facility] [address] [place] [address] Dr. Roc CoulterPerformed by:CommentOhioHealth Berger Hospital on above: Result Comment: Santy Quach, Special Population Paraprofessional (ASCP) Performed at: Performed By: #### [id number] #### [facility] [address] [place] [address] Dr. Roc CoulterSpecimen adequacy:CommentOhioHealth Berger Hospital on above:Result Comment: Satisfactory for evaluation. Endocervical and/or squamous metaplastic cells (endocervical component) are present. Performed at: WBPerformed By: #### [id number] #### [facility] [address] [place] [address] Dr. Roc Alan AUTO DIFFon 17-99-8686PSFC #0.0 103/ulNormal0.0-0.1Kindred Hospital DaytonComment on above:Performed By: #### CBC #### [facility] [address] [place] [address] Dr. Roc CoulterBasophils/100 WBC (Bld)0.3 %Normal0.2-2.0[facility] Comment on above:Performed By: #### CBC #### [facility] [address] [place] [address] Dr. Roc Logan #0.1 103/ulNormal0.0-0.7The [facility] on above: Performed By: #### CBC #### [facility] [address] [place] [address] Dr. Roc Rainesosinophils/100 WBC (Bld)1.0 %Normal0.9-7.0[facility] Comment on above:Performed By: #### CBC #### [facility] [address] [address] [address] Roc Rainesrythrocyte distribution width (RBC) [Ratio]16.6 %Critically high 11.0-15.0The [facility] Greene MemorialComment on above:Performed By: #### CBC #### [facility] [address] [place] [address] Dr. Roc CoulterHematocrit (Bld) [Volume fraction]30.2 %Critically low36.0-48.0 The [facility] Greene MemorialComment on above:Performed By: #### CBC #### [facility] [address] [place] [address] Dr. Roc CoulterHemoglobin (Bld) [Mass/Vol]9.6 g/dLCritically low12.0-16.0The [facility] Greene MemorialComment on above:Performed By: #### CBC #### [facility] [address] [place] [address] Dr. Roc James #0.10 10e3/ulCritically high0.00-0.03The [facility] Comment on above:Performed By: #### CBC #### [facility] [address] [place] [address] Dr. Roc James %0.7 %Critically high0.0-0.5The [facility] Greene MemorialComment on above:Performed By: #### CBC #### [facility] [address] [place] [address] Dr. Roc Solis #2.5 103/ulNormal1.2-3.8The [facility] Greene MemorialComment on above:Performed By: #### CBC #### [facility] [address] [place] [address] Dr. Roc Carvajalhocytes/100 WBC (Bld)18.6 %Critically low20.5-60.0[facility]red Hospital DaytonComment on above:Performed By: #### CBC #### [facility] [address] [place] [address] Dr. Roc SantizoUAL DIFF REQNONormalThe [facility] Greene MemorialComment on above: Performed By: #### CBC #### [facility] [address] [address] [address] Roc Chang (RBC) [Entitic mass]27.9 aiQgwkeq90.7-34.0The [facility] Greene MemorialComment on above:Performed By: #### CBC #### [facility] [address] [place] [address] Dr. Roc Chang (RBC) [Mass/Vol]31.8 g/wYJmwqyr18.9-35.2The [facility] Greene MemorialComment on above:Performed By: #### CBC #### [facility] [address] [place] [address] Dr. Roc Barbosa (RBC) [Entitic vol]87.8 pFGtxmdq02.0-99.0The [facility] Greene MemorialComment on above:Performed By: #### CBC #### [facility] [address] [place] [address] Dr. Roc Marte #0.9 103/ulCritically high0.3-0.8ThCleveland Clinic South [facility]inte Hospital Comment on above:Performed By: #### CBC #### [facility] [address] [place] [address] Dr. Roc Rochaocytes/100 WBC (Bld)6.7 %Normal1.7-12.0[facility] Comment on above:Performed By: #### CBC #### [facility] [address] [place] [address] Dr. Roc Diaz #9.8 103/ulCritically high1.4-6.5ThCleveland Clinic South Pointe Hospital Comment on above:Performed By: #### CBC #### [facility] [address] [place] [address] Dr. Roc Bishoputrophils/100 WBC (Bld)72.7 %Dlnnrw04.0-75.0The [facility] MemorialComment on above:Performed By: #### CBC #### [facility] [address] [place] [address] Dr. Roc Mckeonlet mean volume (Bld) [Entitic vol]10.4 fLNormal9.5-13.5The [facility] MemorialComment on above:Performed By: #### CBC #### [facility] [address] [place] [address] Dr. Roc CoulterPLT228 103/dbHmzqnb193-550Efu [facility] MemorialComment on above: Performed By: #### CBC #### [facility] [address] [address] [address] Roc CoulterRBC3.44 106/ulCritically low4.20-5.40The [facility] MemorialComment on above:Performed By: #### CBC #### [facility] [address] [address] [address] Roc CoulterWBC13.4 103/ulCritically high4.0-11.0The [facility] MemorialComment on above:Performed By: #### CBC #### [facility] [address] [place] [address] Dr. Roc MendezC AUTO DIFFon 83-28-5943OAUT #0.0 103/ulNormal0.0-0.1The [facility] MemorialComment on above:Performed By: #### CBC ####[facility] [address] [place], [place] [address]DrRob CoulterBasophils/100 WBC (Bld)0.5 %Normal0.2-2.0The [facility] MemorialComment on above:Performed By: #### CBC ####[facility] G[address]rs[address] [place], [place] [address]Dr.Roc ChangEO #0.1 103/ulNormal0.0-0.7The [facility] MemorialComment on above:Performed By: #### CBC ####[facility] Factepgjpz[address] [place], [place] [address]Dr.Roc ChangEosinophils/100 WBC (Bld)1.1 %Normal 0.9-7.0The [facility] MemorialComment on above:Performed By: #### CBC ####[facility] Wtyrdpyfb[address] [place], [place] [address]Dr.Roc Coulter Erythrocyte distribution width (RBC) [Ratio]16.1 %Critically high11.0-15.0The [facility] MemorialComment on above:Performed By: #### CBC ####[facility] [address] [address]Dr.Roc CoulterHematocrit (Bld) [Volume fraction]36.0 %Zjgtnp59.0-48.0The [facility] MemorialComment on above:Performed By: #### CBC ####[facility] [address] [place], [place] [address]Dr.Roc CoulterHemoglobin (Bld) [Mass/Vol]11.7 g/dL Critically low12.0-16.0The [facility] MemorialComment on above:Performed By: #### CBC ####[facility] Z[address] [place], [place] [address]Dr. Octaviaflorence ChangIG #0.08 10e3/ulCritically high0.00-0.03The [facility] MemorialComment on above:Performed By: #### CBC ####[facility] Jmtyes[address] [place], [place] [address]Dr.Roc YfnIG %0.9 %Critically high0.0-0.5The [facility] MemorialComment on above:Performed By: #### CBC ####[facility] K[address]vq[address] [place], [place] [address]Dr.Roc CoulterLYMPH #1.8 103/ulNormal1.2-3.8The [facility] MemorialComment on above:Performed By: #### CBC ####[facility] Qrmmaidgbi[address] [place], [place] [address]Dr. Roc CoulterLymphocytes/100 WBC (Bld)20.8 %Ngdewz38.5-60.0The [facility] Comment on above:Performed By: #### CBC ####[facility] C[address]wns[address] [place], [place] [address]Dr.Roc CoulterMANUAL DIFF REQNONormalThe [facility] MemorialComment on above:Performed By: #### CBC ####[facility] [address] [address]Dr.Roc YfnH (RBC) [Entitic mass]28.0 vtBouuzn52.7-34.0The [facility] MemorialComment on above: Performed By: #### CBC ####[facility] Wbkfvgtmyw[address] [place], [place] [address]Dr.Roc CoulterHC (RBC) [Mass/Vol]32.5 g/dLNormal 29.9-35.2The [facility] MemorialComment on above:Performed By: #### CBC ####[facility] Xpysjgfhsi[address] [place], [place] [address]Dr. Octaviaflorence CoulterV (RBC) [Entitic vol]86.1 tGWvgkwj02.0-99.0The [facility] Comment on above:Performed By: #### CBC ####[facility] Rqfaeszdyg[address] [place], [place] [address]Dr.Roc CoulterMONO #0.8 103/ulNormal0.3-0.8 The [facility] MemorialComment on above:Performed By: #### CBC ####[facility] Rvadkfvore[address] [place], [place] [address]Dr.Octaviaflorence Coulter Monocytes/100 WBC (Bld)9.6 %Normal1.7-12.0The [facility] MemorialComment on above: Performed By: #### CBC ####[facility] Niwhosgkkg[address] [place], [place] [address]Dr.Roc CoulterNEUT #5.9 103/ulNormal1.4-6.5The [facility] MemorialComment on above:Performed By: #### CBC ####[facility] Grkghdqiqh[address] [place], [place] [address]Dr.Octaviaflorence CoulterNeutrophils/100 WBC (Bld)67.1 %Yugokq03.0-75.0The [facility] MemorialComment on above:Performed By: #### CBC ####[facility] Udauob[address]st[address] [place], [place] [address]Dr.Octaviaflorence CoulterPlatelet mean volume (Bld) [Entitic vol]10.6 fLNormal9.5-13.5 The [facility] Centerment on above:Performed By: #### CBC ####[facility] [address] [address]Dr.Roc WllilDDB125 103/vmPqcoah260-985Vmh [facility] MemorialComduane l. waters hospital on above:Performed By: #### CBC ####[facility] [address] [address]Dr. Roc ChangRBC4.18 106/ulCritically low4.20-5.40The [facility] MemorialComment on above:Performed By: #### CBC ####[facility] [address] [address]Dr.Roc ChangWBC8.8 103/ulNormal4.0-11.0The [facility] on above:Performed By: #### CBC ####[facility] [address] [address]Dr.Roc CoulterCovid-19 PCR (CVDTBH)on 71-30-6509CHZQ-CoV-2 (COVID-19) RNA NIMA+probe Ql (Unsp spec)Not detectedNormalNOT DETECTEDThe [facility] on above:Result Comment: When diagnostic testing is negative, the [...] for this test is supported by the Compression Molding Machine Operator of Health and Human Service's declaration that circumstances exist to justify the emergency use of in vitro diagnostics for the detection and/or diagnosis of the virus that causes COVID-19. This EUA will remain in effect for the duration of the COVID-19 declaration justifying emergency of IVDs, unless it is terminated or revoked by the FDA (after which the test may no longer be used).Performed By: #### CVDTBH #### [facility] [address] [address] [address] Roc Bailey SCREEN RAPID (URINE)on 80-07-5509XOXAtnyddbwWpxthmWHFEQTCK [facility] [place] on above:Performed By: #### DRUGRPD #### [facility] [address] [place] [address] Dr. Roc CoulterBARNegativeShawneeNEGCleveland Clinic Fairview Hospital on above: Performed By: #### DRUGRPD #### [facility] [address] [place] [address] Dr. Roc CoulterBUPNegativeNormalNEGOhioHealth Southeastern Medical CenterComduane l. waters hospital on above: Performed By: #### DRUGRPD #### [facility] [address] [place] [address] Dr. Roc PerezZONegativeShawneeNEGOhioHealth Southeastern Medical CenterComduane l. waters hospital on above: Performed By: #### DRUGRPD #### [facility] [address] [place] [address] Dr. Roc GarciaCNegativeShawneeNEGOhioHealth Southeastern Medical CenterComduane l. waters hospital on above: Performed By: #### DRUGRPD #### [facility] [address] [place] [address] Dr. Roc YoungerGreen Cross HospitalComduane l. waters hospital on above: Result Comment: AMP (Amphetamine): 500ng/mL, BAR (Barbituates): 200 ng/mL, BZO (Benzodiazepines): 150 ng/mL, BUP (Buprenorphine): 10 ng/mL, SHAYY (Cocaine): 150 ng/mL, mAMP (Methamphetamine): 500 ng/mL, MTD (Methadone): 200 ng/mL, OPI (Opiates): 100 ng/mL, OXY (Oxycodone): 100 ng/mL, PCP (Phencyclidine): 25 ng/mL, PPX (Propoxyphene): 300 ng/mL, THC (Cannabinoids): 50 ng/mL, TCA (Trycyclic Antidepressants): 300 ng/mLPerformed By: #### DRUGRPD #### [facility] [address] [place] [address] Dr. Yilan ChangDRUG CUT HEADERDRUG CLASS TEST SYSTEM CUT-OFF CONCENTRATIONS ARE FOLLOWS:NormalThe [facility] MemorialComment on above:Performed By: #### DRUGRPD #### [facility] [address] [address] [address] Roc CoultermAMPNegativeNormalNEGATIVEKindred Hospital DaytonComment on above: Performed By: #### DRUGRPD #### [facility] [address] [address] [address] Roc CoulterMTDNegativeNormalNEGATIVEKindred Hospital DaytonComment on above: Performed By: #### DRUGRPD #### [facility] [address] [address] [address] Roc CoulterOPINegativeNormalNEGATIVEKindred Hospital DaytonComment on above: Performed By: #### DRUGRPD #### [facility] [address] [place] [address] Dr. Roc CoulterOXYNegativeNormalNEGATIVEKindred Hospital DaytonComment on above: Performed By: #### DRUGRPD #### [facility] [address] [address] [address] Roc CoulterPCPNegativeNormalNEGATIVEKindred Hospital DaytonComment on above: Performed By: #### DRUGRPD #### [facility] [address] [place] [address] Dr. Roc CoulterPPXNegativeNormalNEGOhioHealth Southeastern Medical CenterComment on above: Performed By: #### DRUGRPD #### [facility] [address] [address] [address] Roc CoulterTCANegativeNormalNEGATIVEKindred Hospital DaytonComment on above: Performed By: #### DRUGRPD #### [facility] [address] [address] [address] Roc CoulterTHCNegativeNormalNEGATIVEKindred Hospital DaytonComment on above: Performed By: #### DRUGRPD #### [facility] [address] [address] [address] Roc CoulterTYPE AND SCREENon 15-91-5636UICZ AND SCREENNegativeNormalThe Lisa HospitalComment on above:Performed By: #### TNS ####[facility] [address] [place], [place] [address]Zq.Roc Landeros PREG BIOPHY W NON STRESSon 26-43-2078XT PREG BIOPHY W NON STRESSEXAMINATION: US PREG BIOPHY W NON STRESS HISTORY: [...] Electronically authenticated by: KULWINDER VENEGAS Date: 2021-08-19 16:43[facility] HospitalUS PREG GROWTHon 34-21-9712ZL PREG GROWTHEXAMINATION: US PREG GROWTH HISTORY: Large for gestation [...] Electronically authenticated by: KULWINDER VENEGAS Date: 2021-08-01 07:24[facility] B STREP CULTUREon 07-26-2021. agalactiae Ag Ql (Unsp spec)Culture Observations: NEGATIVE FOR GROUP B STREPTOCOCCUS.NormalThe [facility] MemorialComment on above: Performed By: #### GBSCX ####[facility] [address] [place], [place] [address]XtWendy Landeros PREG GROWTHon 82-23-0837UQ PREG GROWTHEXAMINATION: US PREG GROWTH HISTORY: Excessive growth affecting [...] Electronically authenticated by: KULWINDER VENEGAS Date: 2021-06-09 16:45NoTwin City HospitalUS PREG INCOMPLETE ANATOMYon 25-91-4154FE PREG INCOMPLETE ANATOMYEXAMINATION: US PREG INCOMPLETE ANATOMY HISTORY: screening COMPARISON: 05/06/2021 FINDINGS: Normal visualized anatomy: RVOT, LVOT, kidneys, spine, orbits Amniotic fluid index: 19.1 cm, normal Heart rate: 153 bpm IMPRESSION: Normal observed anatomy Electronically authenticated by: KULWINDER VENEGAS Date: 2021-06-09 16:46[facility] HospitalGTT 3 HR PREGon 89-74-8368Dfpgilf [Mass/Vol]83 mg/dLNormal 74-106The [facility] MemorialComment on above:Performed By: #### GTT3P #### [facility] [address] [address] [address] Roc CoulterGlucose [Mass/Vol]176 mg/dLNoTwin City HospitalComment on above:Performed By: #### GTT3P #### [facility] [address] [place] [address] Dr. Roc CoulterGlucose [Mass/Vol]125 mg/dLNoTwin City HospitalComment on above:Performed By: #### GTT3P #### [facility] [address] [place] [address] Dr. Roc CoulterGlucose [Mass/Vol]97 mg/dLNoTwin City HospitalComment on above:Performed By: #### GTT3P #### [facility] [address] [place] [address] Dr. Roc LozaOSE - 1HRon 86-87-4667Lzajqbm [Mass/Vol]173 mg/dLCritically udsp76-753Fru [facility] MemorialComment on above:Performed By: #### GLU1HR #### [facility] [address] [place] [address] Dr. Roc CoulterHEMOGRAM AND PLATELon 02-77-3313Djyflxteid (Bld) [Volume fraction]34.5 %Critically low36.0-48.0The [facility] MemorialComduane l. waters hospital on above: Performed By: #### HH #### [facility] [address] [place] [address] Dr. Roc CoulterHemoglobin (Bld) [Mass/Vol]10.8 g/dLCritically low12.0-16.0The [facility] MemorialComment on above:Performed By: #### HH #### [facility] [address] [place] [address] Dr. Roc ChangH (RBC) [Entitic mass]27.9 ffHaaqzi00.7-34.0The [facility] MemorialComment on above:Performed By: #### HH #### [facility] [address] [place] [address] Dr. Roc Chang (RBC) [Mass/Vol]31.3 g/yITetcpb51.9-35.2The [facility] MemorialComment on above:Performed By: #### HH #### [facility] [address] [place] [address] Dr. Roc ChangV (RBC) [Entitic vol]89.1 qZAryylf05.0-99.0The [facility] MemorialComment on above:Performed By: #### HH #### [facility] [address] [place] [address] Dr. Roc CoulterPLT298 103/czUjdodv226-318Ucm [facility] MemorialComment on above: Performed By: #### HH #### [facility] [address] [place] [address] Dr. Roc CoulterRBC3.87 106/ulCritically low4.20-5.40The [facility] MemorialComment on above:Performed By: #### HH #### [facility] [address] [place] [address] Dr. Roc CoulterWBC8.1 103/ulNormal4.0-11.0The [facility] MemorialComment on above: Performed By: #### HH #### [facility] [address] [place] [address] Dr. Roc Landeros PREG ANATOMY SINGLEon 47-00-0786QZ PREG ANATOMY SINGLE EXAMINATION: US PREG ANATOMY [...] Electronically authenticated by: KULWINDER VENEGAS Date: 2021-05-06 16:06[place] [facility] East HospitalProgesteroneon 67-16-5709Peeorsgcased4.3 ng/mLNormalKettering Memorial HospitalComduane l. waters hospital on above:Result Comment: Menstrual Cycle Progesterone Reference Ranges: Follicular:<1.0 ng/mL Ovulation:<12.1 ng/mL Luteal:1.8 to 23.9 ng/mL Progesterone Reference Ranges vary by gestational period: First Trimester:11.0 to 44.3 ng/mL Second trimester: 25.4 to 83.3 ng/mL Third trimester: 58.7 to 214 ng/mL Post menopausal Progesterone:<0.5 ng/mL Reference: 1. Progesterone (Progesterone III) [package insert V 1.0 Stateless]. [facility], [place], [place]. November 2014.Performed By: #### PROG #### [facility] [address] [place], [place] [address] FNOSCQPLyx 42-55-9574HLIZNAULEvhtpz (ENDOCC) REBECCA WHITE ([id number]) 1990 F Date Time Provider Department 10/03/20 JOYCELYN ALLEN [facility] During your visit today, we recorded [...] (FLONASE) 50 mcg/actuation nasal spray Use 1 Prospect in the nose as needed. - sertraline [...] meals. Encounter Status:Closed by JEANIE GARCIA on 10/20/20NoAdena Health SystemEstradiol-17Bon 41-16-3714Kuxpvlyqg-17B57 pg/mLNSelect Medical Tri[facility] Rehabilitation Hospital on above:Result Comment: This test is not suitable for [...] 3243 pg/mL Second trimester : 1561 TO 32041 pg/mL Third trimester : 8285 to >90900 pg/mL Post-menopausal Estradiol reference range: < 41 pg/mL Reference: 1. Estradiol - E2 (Estradiol III) [package insert V 3.0 Stateless]. [facility], [place], [place], July 2015.Performed By: #### INSULN, DHEAS, VITD, HBA1C, GERMAIN #### [facility] [address] [place], [place] [id number] HCG, Quantitative Blon 96-46-7972GLR, Quantitative Bl<0.6Normal<5.0 [facility] on above:Result Comment: NEGATIVEPerformed By: #### INSULN, DHEAS, VITD, HBA1C, GERMAIN #### [facility] [employer] [address] [place], [place] [address] [phone] 99-25-0040Fgxilhhuqodx9.2 ng/mLNSelect Medical TriHealth Rehabilitation Hospital on above:Result Comment: Menstrual Cycle Progesterone Reference Ranges: Follicular:<1.0 ng/mL Ovulation:<12.1 ng/mL Luteal:1.8 to 23.9 ng/mL Progesterone Reference Ranges vary by gestational period: First Trimester:11.0 to 44.3 ng/mL Second trimester: 25.4 to 83.3 ng/mL Third trimester: 58.7 to 214 ng/mL Post menopausal Progesterone:<0.5 ng/mL Reference: 1. Progesterone (Progesterone III) [package insert V 1.0 Stateless]. [facility], [place], [place]. November 2014.Performed By: #### INSULN, DHEAS, VITD, HBA1C, GERMAIN #### [facility] [address] [place], [place] [address] JNRXrm 92-14-0415LOBUFekuyfkjy (OBGYAV) REBECCA WHITE ([id number]) 1990 F Date Time Provider Department 09/09/20 HALLE LEACH OBNIKA During your visit today, we recorded the following information about you: Sheela Trevino ELO 09/09/2020 9:12 AM Signed Pt called Negative home test Day 42 of her cycle Please call [phone] Ok to leave a message Rafaela Millard [...] September 09, 2020 12:30 PM Maurice Bonilla APRN.BRENDEN 09/09/2020 12:43 PM Signed Labs ordered, if negative, will order provera to induce period. Mauirce Bonilla APRN.BRENDEN September 09, 2020 12:42 PM [...] amenorrhea [N91.1] Order(s):HCG QUANTITATIVE [SQHCGQT] Order #: [id number] FUTURE PROGESTERONE BLD [SQPROG] Order #: [id number] FUTURE ESTRADIOL-17B BLD [SQE2] Order #: [id number] FUTURE SCHEDULE LAB TESTING [6569200] Order #: [id number] FUTURE Prescriptions as of 09/09/2020 - medroxyPROGESTERone (PROVERA) 10 mg tablet Take 1 tablet by mouth once daily for 10 days. - fluticasone (FLONASE) 50 mcg/actuation nasal spray Use 1 Prospect in the nose as needed. - sertraline [...] (None) Encounter Status:Closed by MAURICE BONILLA on 09/09/20NoK[facility]ble 24-76-1968UXZTWnqmizvea (DUARTEN) REBECCA WHITE ([id number]) 1990 F Date Time Provider Department 09/03/20 HALLE LEACH During your visit today, we recorded the following information about you: Rafaela Millard RN 09/03/2020 8:22 AM Signed Patient sent a my chart message. Called the patient she verified [...] used provera was May. Routing to Non Valentín Ivf Pool for advisement Rafaela Millard RN September 03, 2020 8:22 AM Allergies As of Date: 09/03/2020 (No Known Allergies) Date Reviewed: 05/06/2020 Reviewed by: Liliane Whitley) Rajendra - Fully Assessed Reason for Visit: Question [1327] Prescriptions as of 09/09/2020 - medroxyPROGESTERone (PROVERA) 10 mg tablet Take 1 tablet by mouth once daily for 10 days. - fluticasone (FLONASE) 50 mcg/actuation nasal spray Use 1 Prospect in the nose as needed. - sertraline [...] (None) Encounter Status:Closed by RAFAELA MILLARD on 09/09/20NormalCNationwide Children's Hospital Progesteroneon 77-10-4792Ajbkfkgsvqdl49.3 ng/mLNormalKettering Memorial Hospital Comment on above:Result Comment: Menstrual Cycle Progesterone Reference Ranges: Follicular:<1.0 ng/mL Ovulation:<12.1 ng/mL Luteal:1.8 to 23.9 ng/mL Progesterone Reference Ranges vary by gestational period: First Trimester:11.0 to 44.3 ng/mL Second trimester: 25.4 to 83.3 ng/mL Third trimester: 58.7 to 214 ng/mL Post menopausal Progesterone:<0.5 ng/mL Reference: 1. Progesterone (Progesterone III) [package insert V 1.0 Stateless]. [facility], [place], [place]. November 2014.Performed By: #### PROG #### [address] [place] [address] Brvk Germain Hormoneon 10-61-9247Rmde Germain Hormone9.30 ng/mLHigh 0.58-8.13CAdams County Regional Medical Center on above:Performed By: #### INSULN, DHEAS, VITD, HBA1C, GERMAIN #### [address] [place] [address] AWSiw 41-28-3054Uhwyoyom nRBC<0.01Normal<0.01[facility] on above:Performed By: #### INSULN, DHEAS, VITD, HBA1C, DIONISIO #### [address] [place] [address] Exudzjiarep distribution width (RBC) [Ratio]13.2 %Qixjnk55.5-15.0 [facility] on above:Performed By: #### INSULN, DHEAS, VITD, HBA1C, DIONISIO #### [address] [place] [address] Dhexvahkio (Bld) [Volume fraction]44.5 %Qwwize68.0-46.0[facility] on above:Performed By: #### INSULN, DHEAS, VITD, HBA1C, GERMAIN #### [place] [address] Twxqyrmpel (Bld) [Mass/Vol]14.6 g/zJRwspyz11.5-15.5CAdams County Regional Medical Center on above:Performed By: #### INSULN, DHEAS, VITD, HBA1C, GERMAIN #### [place] [address] TFT84.4 dDEfmdlk23.0-34.0[facility] on above: Performed By: #### INSULN, DHEAS, VITD, HBA1C, GERMAIN #### [address] [place] [address] ESNG (RBC) [Mass/Vol]32.8 g/hFRmgecf20.5-36.0[facility] on above:Performed By: #### INSULN, DHEAS, VITD, HBA1C, GERMAIN #### [address] [place] [address] NXD (RBC) [Entitic vol]89.5 eWUjratx37.0-100.0[facility] on above:Performed By: #### INSULN, DHEAS, VITD, HBA1C, GERMAIN #### [place] [address] Wzavggoe mean volume (Bld) [Entitic vol]9.6 fLNormal9.0-12.7 [facility] on above:Performed By: #### INSULN, DHEAS, VITD, HBA1C, GERMAIN #### [place] [address] Ddufabhiq (Bld) [#/Vol]314 10*3/fFDnnsfv249-999PoedspcaoMarymount Hospital on above:Performed By: #### INSULN, DHEAS, VITD, HBA1C, GERMAIN #### [place] [address] KGI (Bld) [#/Vol]4.97 10*6/uLNormal3.90-5.20[facility] on above:Performed By: #### INSULN, DHEAS, VITD, HBA1C, GERMAIN #### [place] [address] LKO (Bld) [#/Vol]8.64 10*3/uLNormal3.70-11.00[facility] on above:Performed By: #### INSULN, DHEAS, VITD, HBA1C, EGRMAIN #### [facility] [address] [place], [place] [address] BYHGpc 93-37-7122CPESJsskzk Visit (MINGO) REBECCA WHITE ([id number]) 1990 F Date Time Provider Department 05/06/20 8:45 AM HALLE LEACH During your visit today, we recorded the following information about you: Pulse Blood pressure Weight Height 64/minute 119/64 104.6 kg 1.676 m Last Period 01/08/20 Liliane Drew MA 05/06/2020 8:50 AM Signed [facility] Date: 05/06/2020 Consultation Requested By: [...] Hysteroscopy Laparoscopy OPK (Ovulation Predictor Kit) [facility] [place] Ultrasound Semen Analysis Ultrasound Other (See [...] on file. 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/EXERCISE: Occupation: [employer] Exercise: no Partner Information Partner's Name: Pietro [...] (FLONASE) 50 mcg/actuation nasal spray Use 1 Prospect in the nose as needed. - sertraline [...] with more than 50% of the total kozx-ic-para time of the visit in counseling / coordination of care. Medical Decision Making Consultation requested by Dr. Joycelyn Allen MD [address] [place] [address] [place] [address] for an opinion regarding irregular period and my recommendations will be (more content not included)...NormalKettering Memorial HospitalCONSULT PROGon 45-84-8360WKSACAQ PROGHNO ID: [id number] Author: Liliane Drew Service: ? Author Type: Storeperson Type: Consult Progress Note Filed: 05/11/2020 7:30 PM Note Text: [facility] Date: 05/06/2020 Consultation Requested By: [...] Hysteroscopy Laparoscopy OPK (Ovulation Predictor Kit) O[facility] [place] Ultrasound Semen Analysis Ultrasound Other (See [...] on file. 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 - sertraline [...] with more than 50% of the total auvp-fn-vwji time of the visit in counseling / coordination of care. Medical Decision Making Consultation requested by Dr. Joycelyn Allen MD [address] [place] [address] [place] [address] for an opinion regarding irregular period and my recommendations will be communicated back to the requesting physician by way of shared Medical record or letter via US mail , MD signature - MD Shirin Agosto MDNormalCUniversity Hospitals [facility] Metabolic Panelon 05-06-2020 Albumin [Mass/Vol]4.2 g/dLNormal3.9-4.9CAdams County [facility] on above:Performed By: #### INSULN, DHEAS, VITD, HBA1C, GERMAIN #### [facility] [address] [place], [place] [address] ALP [Catalytic activity/Vol]81 U/IBshydz59-749BbpxjfsklMarymount Hospital on above:Performed By: #### INSULN, DHEAS, VITD, HBA1C, GERMAIN #### [facility] [address] [place], [place] [address] XJD [Catalytic activity/Vol]18 U/LNormal7-38[facility] on above:Performed By: #### INSULN, DHEAS, VITD, HBA1C, GERMAIN #### [facility] [address] [place], [place] [address] Lqjgw gap [Moles/Vol]13 mmol/LNormal9-18[facility] Comment on above:Performed By: #### INSULN, DHEAS, VITD, HBA1C, GERMAIN #### [place] [address] [place], [place] [address] UZB [Catalytic activity/Vol]19 U/RZqapgy35-21IyzllvbrwMarymount Hospital on above:Performed By: #### INSULN, DHEAS, VITD, HBA1C, GERMAIN #### [place] [address] [place], [place] [address] Ancwfdxkn [Mass/Vol]0.3 mg/dLNormal0.2-1.3CNationwide Children's Hospital Comment on above:Performed By: #### INSULN, DHEAS, VITD, HBA1C, GERMAIN #### [facility] [address] [place], [place] [address] Evbonta [Mass/Vol]9.3 mg/dLNormal8.5-10.2CNationwide Children's Hospital Comment on above:Performed By: #### INSULN, DHEAS, VITD, HBA1C, GERMAIN #### [facility] [address] [place], [place] [address] Cewsvcof [Moles/Vol]103 mmol/YIvzyvv49-797PockaqrugKettering Memorial Hospital Comment on above:Performed By: #### INSULN, DHEAS, VITD, HBA1C, GERMAIN #### [facility] [address] [place], [place] [address] XV4 [Moles/Vol]24 mmol/VYidhlr22-12DkzhmboesMarymount Hospital on above:Performed By: #### INSULN, DHEAS, VITD, HBA1C, GERMAIN #### [facility] [address] [place] [address] Mgowfsjqga [Mass/Vol]0.72 mg/dLNormal0.58-0.96[facility] on above:Performed By: #### INSULN, DHEAS, VITD, HBA1C, GERMAIN #### [facility] [address] [place] [address] wYDZ- Amer.>60NormalClevelSt. John of God Hospital on above:Performed By: #### INSULN, DHEAS, VITD, HBA1C, GERMAIN #### [facility] [address] [place] [address] zXUD-All Other Races>60NormalCleveland [facility] on above:Result Comment: eGFR (Estimated GFR) Units of measure: [...] the eGFR may not accurately reflect actual GFR.Performed By: #### INSULN, DHEAS, VITD, HBA1C, GERMAIN #### [facility] [address] [place] [address] Cnwraza [Mass/Vol]85 mg/uKPaxial19-30GrnhxskgyKettering Memorial Hospital Comment on above:Result Comment: The [place] Diabetes Association (ADA) provides guidance for cutoff [...] Standards of Medical Care in Diabetes 2016, [place] [employer]. Diabetes Care. 2016.39(Suppl 1).Performed By: #### INSULN, DHEAS, VITD, HBA1C, GERMAIN #### [place] [address] Nxbtbcdyv [Moles/Vol]3.9 mmol/LNormal3.7-5.1CNationwide Children's HospitalComment on above:Performed By: #### INSULN, DHEAS, VITD, HBA1C, GERMAIN #### [place] [address] Rfqtzvv [Mass/Vol]7.4 g/dLNormal6.3-8.0[facility] Comment on above:Performed By: #### INSULN, DHEAS, VITD, HBA1C, GERMAIN #### [place] [address] Csqdml [Moles/Vol]140 mmol/NEuptze939-393KehpzueqnKettering Memorial Hospital Comment on above:Performed By: #### INSULN, DHEAS, VITD, HBA1C, GERMAIN #### [place] [address] Ksbb nitrogen [Mass/Vol]9 mg/dLNormal7-21[facility] Comment on above:Performed By: #### INSULN, DHEAS, VITD, HBA1C, GERMAIN #### [place] [address] OACI-Son 29-67-7417MYIZ-S154.9 ug/hLZbucys04.8-340.0[facility] on above:Result Comment: Reference ranges are age and gender specific. For additional information, referencerange tables can be found in the laboratory test directory. The normal values are based on the following source: Dehydroepiandrosterone sulfate (DHEA S) [package insert V 17.0 Stateless]. [facility], [place], [place]: September 2012.Performed By: #### INSULN, DHEAS, VITD, HBA1CDIONISIO #### [facility] [address] [place] [id number] [phone] A1con 29-50-0051Xcrnyvn [Mass/Vol]111 mg/dLNormal [facility] on above:Result Comment: eAG: (Estimated average glucose) is a calculated value from HgbA1c and is field service representative of the average blood glucose level in the last 2-3 month period.Performed By: #### INSULN, DHEAS, VITD, HBA1CDIONISIO #### [place] [address] [place] [address] GqH0x (Bld) [Mass fraction]5.5 %Normal4.3-5.6CAdams County Regional Medical Center on above:Result Comment: [place] Diabetes Association guidelines indicate that patients with HgbA1c in the range 5.7-6.4% are at increased risk for development of diabetes, and intervention by lifestyle modif ication may be beneficial. HgbA1c greater or equal to 6.5% is considered diagnostic of diabetes.Performed By: #### INSULN, DHEAS, VITD, HBA1CDIONISIO #### [place] [address] [place] [id number] [phone] 44-56-4975Mwqgsch24.4 mU/LNormal3.0-25.0[facility] on above:Performed By: #### INSULN, DHEAS, VITD, HBA1CDIONISIO #### [place] [address] [place] [id number] [phone], Tot/Fron 17-19-9946Gtjobsdswbxv [Mass/Vol]77 ng/dLHigh 8-60[facility] on above:Result Comment: (NOTE) ADDITIONAL INFORMATION Testing performed by Liquid Chromatography-Tandem Mass Spectrometry (LC-MS/MS). This test was developed and its performance characteristics determined by [facility] in a manner consistent with CLIA requirements. This test has not been cleared or approved by the U.S. Food and Drug Administration.Performed By: #### TFTEST #### [address] [place] [address] [phone], Free1.54 ng/dLHigh0.06-1.03[facility] Comment on above:Result Comment: (NOTE) ADDITIONAL INFORMATION Testing performed by [facility]. This test was developed and its performance characteristics determined by [facility] in a manner consistent with CLIA requirements. This test has not been cleared or approved by the U.S. Food and Drug Administration.Performed By: #### TFTEST #### [address] [place] [address] Loshwar D 25 Hydroxyon 72-94-5584Qaclfzg D 25 Ememllc68.7 ng/mLLow 31.0-80.0[facility] Hospitalment on above:Result Comment: Classification of 25 [place] Vitamin D status: Insufficiency/Moderate Deficiency: < or = 30 ng/mL Sufficiency/Optimal Levels: 31 to 80 ng/mL Toxicity: > 100 ng/mL Test performed by chemiluminescent immunoassay.Performed By: #### INSULN, DHEAS, VITD, HBA1CDIONISIO #### [facility] [address] [place], [place] [address] Emjmdhwtbn,Urine,24hon 85-77-3802Xamuwsoasn,Urine,24h1.713 g/24 hr Normal0.8-1.8CAdams County Regional Medical Center on above:Performed By: #### INSULN, DHEAS, VITD, HBA1CDIONISIO #### [facility] [employer] [address] [place], [place] [address] Free Ben, UR LCMSMSon 30-20-6940Gvszkwl [facility], WKGIOA12Dsvgas [facility] on above:Performed By: #### INSULN, DHEAS, VITD, HBA1C, GERMAIN #### [facility] [address] [place] [address] Kzynufjypm [Mass/Vol]214 mg/dLNoAdena Health System Comment on above:Performed By: #### INSULN, DHEAS, VITD, HBA1C, GERMAIN #### [place] [address] [place] [address] Zzvck Volume, VUKVAH884OsgialQkltjqmjhGeorgetown Behavioral Hospital on above:Performed By: #### INSULN, DHEAS, VITD, HBA1C, GERMAIN #### [place] [address] [place] [address] ZH Ben Free InterpSEE NOTENoGeorgetown Behavioral Hospital on above:Result Comment: (NOTE) INTERPRETIVE INFORMATION: Cortisol Urine Free by LC-MS/MS Access complete set of age- and/or gender-specific reference intervals for this test in the [facility] Test Directory (incir.com). This test was developed and its performance characteristics determined by [facility]. It has not been cleared or approved by the US Food and Drug Administration. This test was performed in a CLIA certified laboratory and is intended for clinical purposes. Performed by [facility], [address] [place] [id number] [email or web address], Lin Rosales MD, Lab. DirectorPerformed By: #### INSULN, DHEAS, VITD, HBA1C, GERMAIN #### [facility] [address] [place] [address] LB Ben Free ug/d14.5 ug/dNormal<=45.0[facility] Comment on above:Performed By: #### INSULN, DHEAS, VITD, HBA1C, GERMAIN #### [facility] [address] [place] [address] UM Ben Free ug/L20.40 ug/LNormalCleveland Clinic ClevelandComment on above:Performed By: #### INSULN, DHEAS, VITD, HBA1C, GERMAIN #### [facility] [employer] [address] [place] [phone] Cortisol ug/g crt9.53 ug/g CRTNormOhioHealth Grove City [facility] Comment on above:Result Comment: (NOTE) Reference Interval: Cortisol ug/g nursing home physician Female Prepubertal: Less than 25 ug/g nursing home physician 18 years and older: Less than 24 ug/g nursing home physician : Less than 59 ug/g nursing home physician Male Prepubertal: Less than 25 ug/g nursing home physician 18 years and older: Less than 32 ug/g crtPerformed By: #### INSULN, DHEAS, VITD, HBA1C, GERMAIN #### [facility] [address] [place] [address] UZ,Creatinine mg/hry5602 mg/dUyrtws606-1576LqfheedscKettering Memorial HospitalComduane l. waters hospital on above:Performed By: #### INSULN, DHEAS, VITD, HBA1C, GERMAIN #### [facility] [address] [place] [address] Woajwu / Volumeon 82-37-5161Uxgynfpzdq End [id number] [facility] on above:Performed By: #### INSULN, DHEAS, VITD, HBA1C, GERMAIN #### [facility] [employer] [address] [place] [phone] End Lwmv8094XqjpqjSuyxyxabwAdena Health SystemComduane l. waters hospital on above:Performed By: #### INSULN, DHEAS, VITD, HBA1C, GERMAIN #### [facility] [employer] [address] [place] [address] Csfcuigjkq Start [id number]n Behavioral Hospital on above:Performed By: #### INSULN, DHEAS, VITD, HBA1C, GERMAIN #### [facility] [employer] [address] [place] [phone] Start Esnr1482FhysizNkxjcmuyqAdena Health SystemComduane l. waters hospital on above:Performed By: #### INSULN, DHEAS, VITD, HBA1C, GERMAIN #### [facility] [address] [place] [id number] [phone] hrNormalCAdams County Regional Medical Center on above: Performed By: #### INSULN, DHEAS, VITD, HBA1C, GERMAIN #### [facility] [address] [place] [address] Cqdxhz046 mLNormalKettering Memorial HospitalComduane l. waters hospital on above: Performed By: #### INSULN, DHEAS, VITD, HBA1C, GERMAIN #### [facility] [address] [place] [address] Vital Signs Date TimeVital SignValuePerforming EgzirnjmfAtlitxcj24-62-9903 15:18-0500Body mass index (BMI) [Ratio]45.18 kg/e4Uzeze Harpreet DO Work Phone: [facility] HospitalBmtwgpbqxb40-71-5158 15:18-0500Body fuucav134.15 kgCorey Harpreet DO Work Phone: [phone]-[facility] [address]Pcniagbvyz03-94-1219 15:18-0500Diastolic blood hcvuqich19 mm[Hg]Ricci Harpreet DO Work Phone: [phone]-[facility] [address]Djcnwdtnqv77-40-3913 15:18-0500Systolic blood oydifbgj609 mm[Hg]Ricci Harpreet DO Work Phone: [phone]-[facility] [address]Rldqzqbhim81-74-8913 13:08-0500Body hlitqi875.1 cmAlyssa Butterfield MD Work Phone: [facility]11-04-2025 13:08-0500 Body mass index (BMI) [Ratio]44.9 kg/i9EvcvdlAlyssa Butterfield MD Work Phone: [facility]11-04-2025 13:08-0500 Body xcpugt450.46 kgAlyssa Butterfield MD Work Phone: [facility]11-04-2025 13:08-0500 Diastolic blood aupreapa45 mm[Hg]Alyssa Butterfield MD Work Phone: 1(751)[address] [place], [place] 2308911-04-2025 13:08-0500 Heart rate83 /Zena Butterfield MD Work Phone: [phone])[address] [place], [place] 2308911-04-2025 13:08-0500 Systolic blood fnhjfxzu894 mm[Hg]Alyssa Butterfield MD Work Phone: 1(609)[address] [place], [place] 2308910-13-2025 11:06-0400 Body .1 cmAlyssa Butterfield MD Work Phone: [phone])[address] [place], [place] 2308910-13-2025 11:06-0400 Body mass index (BMI) [Ratio]45.2 kg/h8GsliklAlyssa Butterfield MD Work Phone: 1(982)[address] [place], [place] 2308910-13-2025 11:06-0400 Body srkybf112.37 kgAlyssa Butterfield MD Work Phone: 1(395)[address] [place], [place] 2308910-13-2025 11:06-0400 Diastolic blood oktmllhf84 mm[Hg]Alyssa Butterfield MD Work Phone: 1(466)[address] [place], [place] 2308910-13-2025 11:06-0400 Heart rate98 /Zena Butterfield MD Work Phone: 1(553)[address] [place], [place] 2308910-13-2025 11:06-0400 Respiratory rate16 /Zena Butterfield MD Work Phone: 1(415)[address] [place], [place] 2308910-13-2025 11:06-0400 SaO2% (BldA) [Mass fraction]96 %Alyssa Butterfield MD Work Phone: 1(297)[address] [place], [place] 2308910-13-2025 11:06-0400 Systolic blood bsuenncj352 mm[Hg]Alyssa Butterfield MD Work Phone: 1(357)[address] [place], [place] 2308910-09-2025 09:30-0400 Body .1 Christina Grier MD Work Phone: [facility] HospitalBikfvppqwv50-76-6702 09:30-0400Body mass index (BMI) [Ratio]45.43 kg/e9KluydSeamus Grier MD Work Phone: 1(409)[address] [place], [place] 9100710-09-2025 09:30-0400Body hextte754.83 kgSeamus Grier MD Work Phone: [phone])[address] [place], [place] 9100710-09-2025 09:30-0400Diastolic blood hkqffyzd09 mm[Hg]Seamus Grier MD Work Phone: 1(320)[address] [place], [place] 9100710-09-2025 09:30-0400Heart rate82 /min Seamus Grier MD Work Phone: 1(934)[address] [place], [place] 9100710-09-2025 09:30-0400Respiratory rate18 /minSeamus Grier MD Work Phone: 1(712)[address] [place], [place] 9100710-09-2025 09:30-9954XmS2% (BldA) [Mass fraction]94 %Seamus Grier MD Work Phone: 1(986)[address] [place], [place] 9100710-09-2025 09:30-0400Systolic blood aynyweqp511 mm[Hg]Seamus Grier MD Work Phone: 1(396)[address] [place], [place] 9100707-17-2025 11:22-0400Body fgddsu173.1 [facility] Hazeltontriny Velazquez MD Work Phone: [phone])[address]07-17-2025 11:22-0400 Body mass index (BMI) [Ratio]46.59 kg/s4HgfqlFran Velazquez MD Work Phone: [phone]07-17-2025 11:22-0400 Body musyaa008.01 kgFran Velazquez MD Work Phone: 1(773)[address]07-17-2025 11:22-0400 Diastolic blood kqxztxgy03 mm[Hg]Fran Velazquez MD Work Phone: 1(589)[address]07-17-2025 11:22-0400 Heart rate82 /minStriny Velazquez MD Work Phone: 1(753)[address]07-17-2025 11:22-0400 Systolic blood yqaxckfp543 mm[Hg]Fran Velazquez MD Work Phone: [facility]06-30-2025 13:44-0400 Body .1 cmAlyssa Butterfield MD Work Phone: 1(768)[address]06-30-2025 13:44-0400 Body mass index (BMI) [Ratio]46 kg/b7ReldvjAlyssa Butterfield MD Work Phone: 1(385)[address]06-30-2025 13:44-0400 Body vshrij149.64 kgAlyssa Butterfield MD Work Phone: 1(763)[address]06-30-2025 13:44-0400 Diastolic blood nozfntpg40 mm[Hg]Alyssa Butterfield MD Work Phone: 1(368)[address]06-30-2025 13:44-0400 Heart rate89 /Zena Butterfield MD Work Phone: 1(787)[address]06-30-2025 13:44-0400 Systolic blood uwzqxgrk324 mm[Hg]Alyssa Butterfield MD Work Phone: 1(698)[address]06-25-2025 13:31-0400 Body zuxedt735.1 cmAlyssa Butterfield MD Work Phone: 1(345)[address]06-25-2025 13:31-0400 Body mass index (BMI) [Ratio]45.6 kg/m1FrxmcrAlyssa Butterfield MD Work Phone: 1(040)[address]06-25-2025 13:31-0400 Body qoiaug766.28 kgAlyssa Butterfield MD Work Phone: 1(425)[address]06-25-2025 13:31-0400 Diastolic blood iivcmrve09 mm[Hg]Alyssa Butterfield MD Work Phone: 1(158)[address]06-25-2025 13:31-0400 Heart rate85 /Zena Butterfield MD Work Phone: 1(179)[address]06-25-2025 13:31-0400 Respiratory rate16 /minAlyssa Butterfield MD Work Phone: [facility]06-25-2025 13:31-0400 SaO2% (BldA) [Mass fraction]96 %Alyssa Butterfield MD Work Phone: [facility]06-25-2025 13:31-0400 Systolic blood jbkejvzp553 mm[Hg]Alyssa Butterfield MD Work Phone: [facility]06-18-2025 08:06-0400 Body lpeynz811.[address]06-18-2025 08:06-0400 Body mass index (BMI) [Ratio]46.26 kg/m[address] 07-23-2024 08:06-0400Body xypxtp995.[address] 07-23-2024 08:06-0400Diastolic blood mkskoils99 mm[Hg][address]06-18-2025 08:06-0400Systolic blood mm[Hg][address]06-12-2025 09:31-0400Body tkbppa051.1 Christina Grier MD Work Phone: [phone] HospitalYbyvsvqwsh23-81-6397 09:31-0400Body mass index (BMI) [Ratio]46.26 kg/e7WepeiSeamus Grier MD Work Phone: [phone] [place], [place] [address]Btfkmwflqw95-91-5526 09:31-0400Body zqgqay929.1 Shan Grier MD Work Phone: [phone] HospitalNcefawpfus14-46-4168 09:31-0400Heart rate89 /min Seamus Grier MD Work Phone: 1([phone] [place], [place] [address]Rozbjkcjaq64-41-5597 09:31-0400Respiratory rate18 /minSeamus Grier MD Work Phone: [facility] HospitalZbrsoxumsi03-41-4554 09:31-8931CcV3% (BldA) [Mass fraction]95 %Seamus Grier MD Work Phone: [facility] HospitalVmzguaxmbr05-02-4080 10:03-0400Diastolic blood julabeyq90 mm[Hg]Alyssa Butterfield MD Work Phone: [facility]05-13-2025 10:03-0400 Heart rate90 /Zena Butterfield MD Work Phone: [facility]05-13-2025 10:03-0400 Systolic blood grlokses999 mm[Hg]Alyssa Butterfield MD Work Phone: [facility]04-30-2025 11:24-0400 Body pleycs712.1 cmClinton [facility] Hospital04-30-2025 11:24-0400Body mass index (BMI) [Ratio]46.7 kg/d2OatxmvbjsClinton Memorial Hospital04-30-2025 11:24-0400Body zaojew362.45 kgClinton Memorial Hospital04-30-2025 11:24-0400Diastolic blood phusyino92 mm[Hg][facility] 06-04-2024 11:24-0400Heart rate76 /[facility] 06-04-2024 11:24-0400Respiratory rate12 /[facility] 06-04-2024 11:24-9511FaV3% (BldA) [Mass fraction]97 %[facility]04-30-2025 11:24-0400Systolic blood dfkmodyp688 mm[Hg][facility]04-23-2025 14:34-0400Diastolic blood ekfdgecz98 mm[Hg]Lauryn 1 [facility]04-23-2025 14:34-0400Heart rate92 /minEly [address] [place], [place] 5598304-23-2025 14:34-0400Systolic blood mm[Hg][address]04-10-2025 13:08-0400Body height 165.1 Kenyon Velazquez MD Work Phone: [facility]04-10-2025 13:08-0400 Body mass index (BMI) [Ratio]46.26 kg/b2BegoaFran Velazquez MD Work Phone: [facility]04-10-2025 13:08-0400 Body ftfnop978.1 kgFran Velazquez MD Work Phone: [facility]04-10-2025 13:08-0400 Diastolic blood vmdkuxab41 mm[Hg]Fran Velazquez MD Work Phone: [facility]04-10-2025 13:08-0400 Heart rate84 /minStriny Velazquez MD Work Phone: [facility]04-10-2025 13:08-0400 Systolic blood mm[Hg]Fran Velazquez MD Work Phone: [facility]03-27-2025 14:50-0400 Body mxbaet725.1 cmCl[facility] Hospital03-27-2025 14:50-0400Body mass index (BMI) [Ratio]46.1 kg/c9TevjrowxsClinton Memorial Hospital03-27-2025 14:50-0400Body gtucde807.81 kgClinton Memorial Hospital03-27-2025 14:50-0400Diastolic blood diwhijws27 mm[Hg][facility] 05-01-2024 14:50-0400Heart rate96 /[facility] 05-01-2024 14:50-0400Respiratory rate12 /[facility] 05-01-2024 14:50-2777FgR6% (BldA) [Mass fraction]98 %[facility]03-27-2025 14:50-0400Systolic blood mm[Hg][facility]02-20-2025 09:45-0500Body rspycw228.1 cmCl[facility] Hospital02-20-2025 09:45-0500Body mass index (BMI) [Ratio]45.7 kg/q0ZpupzadbmClinton Memorial Hospital02-20-2025 09:45-0500Body ahqyly633.73 kgClinton [facility] Hospital02-20-2025 09:45-0500Diastolic blood gjggakwc04 mm[Hg] [facility]02-20-2025 09:45-0500Heart rate85 /minClinton Memorial Hospital02-20-2025 09:45-0873DeF7% (BldA) [Mass fraction]97 % [facility]02-20-2025 09:45-0500Systolic blood mboknvek337 mm[Hg][facility]02-04-2025 16:21-0500Body mass index (BMI) [Ratio]45.76 kg/j1FehxqNaya Butler [employer] PAINTER Work Phone: [facility] HospitalRzffeflvae06-33-3070 16:21-0500Body dkjbis158.74 kgNaya Butler [employer] PAINTER Work Phone: [facility] HospitalLqqrrwbfsr86-65-9280 16:21-0500Diastolic blood vcwbtudb63 mm[Hg]Naya Butler [employer] PAINTER Work Phone: [facility] HospitalRoulmioywh28-00-1015 16:21-0500Heart spha281 /min Naya Butler [employer] PAINTER Work Phone: [facility] HospitalKkgjcqmczq97-51-5358 16:21-5881DdL9% (BldA) [Mass fraction]95 %Naya Butler [employer] PAINTER Work Phone: [facility] HospitalIjlbcvslcj96-88-8548 16:21-0500Systolic blood lifvwltk343 mm[Hg]Naya Butler [employer] PAINTER Work Phone: [facility] HospitalGxswdqpjio41-11-2193 09:35-0500Body juzpeq988.1 cmCl[facility] Hospital01-30-2025 09:35-0500Body mass index (BMI) [Ratio]45.6 kg/k8PgbvskkriClinton Memorial Hospital01-30-2025 09:35-0500Body ikysuv734.39 kgClinton Memorial Hospital01-30-2025 09:35-0500Diastolic blood ekkpwdci76 mm[Hg][facility]01-30-2025 09:35-0500 Heart rate62 /[facility]01-30-2025 09:35-4999YiB8% (BldA) [Mass fraction]96 %[facility]01-30-2025 09:35-0500 Systolic blood trtjgquy776 mm[Hg][facility]01-30-2025 08:40-0500Body mass index (BMI) [Ratio]45.62 kg/p4Ygcuk Harpreet DO Work Phone: [facility] HospitalSkiejkfygs63-17-1341 08:40-0500Body .34 kgCorey Harpreet DO Work Phone: [facility] HospitalJryiosrpyg01-65-4469 08:40-0500Diastolic blood wonduyvf18 mm[Hg]Ricci Harpreet DO Work Phone: [facility] HospitalQtkxlmsunf04-26-5038 08:40-0500Systolic blood oonazgaw365 mm[Hg]Ricci Harpreet DO Work Phone: [facility] HospitalXqgrfjsafx89-60-7787 10:01-0500Body nvojym271.1 cmCl[facility] Hospital01-21-2025 10:01-0500Body mass index (BMI) [Ratio]45.7 kg/q3GzugjllfbClinton Memorial Hospital01-21-2025 10:01-0500Body bwpneq546.73 [facility]01-21-2025 10:01-0500Diastolic blood stoukpfj71 mm[Hg][facility]01-21-2025 10:01-0500 Heart rate99 /minClinton Memorial Hospital01-21-2025 10:01-0500Systolic blood anowhkmr761 mm[Hg][facility]01-09-2025 11:24-0500 Body kjmuhl146.1 cmCl[facility] Hospital01-09-2025 11:24-0500Body mass index (BMI) [Ratio]45.7 kg/g4[facility]ayxgt[facility]01-09-2025 11:24-0500Body .7 [degF][facility]01-09-2025 11:24-0500Body qlgtly338.73 [facility]01-09-2025 11:24-0500Diastolic blood inandfow62 mm[Hg][facility] 02-14-2024 11:24-0500Heart rate87 /[facility] 02-14-2024 11:24-6443WqM5% (BldA) [Mass fraction]97 %[facility]01-09-2025 11:24-0500Systolic blood bvhdyiom988 mm[Hg][facility]12-17-2024 13:01-0500Body mass index (BMI) [Ratio]45.43 kg/e0AhbkpNaya Butler [employer] Work Phone: [facility] HospitalEafncgqlxz15-78-3528 13:01-0500Body .83 kgNaya Butler RUG TOUCH UP PAINTER Work Phone: [facility] HospitalMgpgunaolh55-80-3718 13:01-0500Diastolic blood uvhqbjys93 mm[Hg]Naya Butler RUG TOUCH UP PAINTER Work Phone: [facility] HospitalLaayaebtqy49-00-1702 13:01-0500Heart rate98 /min Naya Butler RUG TOUCH UP PAINTER Work Phone: 1(707)562-[facility] HospitalDanihengmo16-12-0353 13:01-8529YxS1% (BldA) [Mass fraction]96 %Naya Butler RUG TOUCH UP PAINTER Work Phone: [facility] HospitalUtdxjcdpjq78-06-0535 13:01-0500Systolic blood paniyrvi133 mm[Hg]Naya Butler RUG TOUCH UP PAINTER Work Phone: [facility] HospitalUcfgjrumyl97-04-5064 15:35-0500Body .1 [facility] 15:35-0500Body mass index (BMI) [Ratio]44.7 kg/q6ElompyfubClinton Memorial Hospital12-12-2024 15:35-0500Body vkitqh802.01 kgCl[facility]12-12-2024 15:35-0500Diastolic blood tmvvsyju54 mm[Hg][facility]12-12-2024 15:35-0500 Heart rate78 /[facility]12-12-2024 15:35-4909LxU8% (BldA) [Mass fraction]98 %[facility]12-12-2024 15:35-0500 Systolic blood mm[Hg][facility]11-18-2024 15:29-0500Body jzgegr950.1 cmAlyssa Butterfield MD Work Phone: 1(535)716-33[facility]11-18-2024 15:29-0500 Body mass index (BMI) [Ratio]43.9 kg/z9KwgxgtAlyssa Butterfield MD Work Phone: 1(048)658-35[facility]11-18-2024 15:29-0500 Body hnlxot036.74 kgAlyssa Butterfield MD Work Phone: 1(818)32358 [address]11-18-2024 15:29-0500 Diastolic blood aduxxxfh88 mm[Hg]Alyssa Butterfield MD Work Phone: 1(575)46158 [address]11-18-2024 15:29-0500 Heart rate86 /minAlyssa Butterfield MD Work Phone: 1(556)[address]11-18-2024 15:29-0500 SaO2% (BldA) [Mass fraction]97 %Alyssa Butterfield MD Work Phone: 1(054)458-[address] [place], [place] 0446111-18-2024 15:29-0500 Systolic blood ghmiifas807 mm[Hg]Alyssa Butterfield MD Work Phone: 1(384)319-[address] [place], [place] 0446110-15-2024 08:15-0400 Body mass index (BMI) [Ratio]45.73 kg/e1Btnzrzseefr Alex DO Work Phone: [facility] HospitalFgmgqromyy42-02-9793 08:15-0400Body uzcrfj201.65 kgChristopher Alex DO Work Phone: [facility] HospitalTalsfdghrg28-78-2869 08:15-0400Diastolic blood pgpwakay24 mm[Hg]Christopher Alex DO Work Phone: noCox Walnut LawnRslqhqryxy48-69-0066 08:15-0400Heart rate91 /min Christopher Alex DO Work Phone: [facility] HospitalAoutwcdffi16-51-3521 08:15-6260WlF5% (BldA) [Mass fraction]95 %Christopher Alex DO Work Phone: [facility] HospitalSdwoajpxyu26-65-4242 08:15-0400Systolic blood obnxoatb756 mm[Hg]Amos Johnson DO Work Phone: [facility] HospitalQclfpcdsvi18-86-0395 13:54-0400Body kpvzsi862.1 cmMD Alyssa Butterfield Work Phone: [facility]09-16-2024 13:54-0400 Body mass index (BMI) [Ratio]46.2 kg/m2MD Alyssa Butterfield Work Phone: [facility]09-16-2024 13:54-0400 Body ccmudg547.09 kgMD Alyssa Butterfield Work Phone: 1(115)241-08[facility]09-16-2024 13:54-0400 Diastolic blood tgvpgddo72 mm[Hg]MD Alyssa Butterfield Work Phone: 1(051)574-03[facility]09-16-2024 13:54-0400 Heart rate80 /minMD Alyssa Butterfield Work Phone: 1(228)061-47[facility]09-16-2024 13:54-0400 Systolic blood xboopkrx41 mm[Hg]MD Alyssa Butterfield Work Phone: 1(460)147-46[facility]09-09-2024 15:49-0400 Body pbzzud916.1 Ruth Luke RUG TOUCH UP PAINTER Work Phone: [facility] HospitalTjuxlldfjd38-05-5528 15:49-0400Body mass index (BMI) [Ratio]44.93 kg/q9Retlgveronica Butler RUG TOUCH UP PAINTER Work Phone: [facility] HospitalVthythsupw18-11-8771 15:49-0400Body fodcba801.47 kgSaveronica Luke RUG TOUCH UP PAINTER Work Phone: [facility] HospitalDduaosugsk61-39-7761 15:49-0400Diastolic blood eiebghdq69 mm[Hg]Naya Luke RUG TOUCH UP PAINTER Work Phone: [facility] HospitalWxqzxobjzy60-73-6569 15:49-0400Heart rate87 /min Naya Luke RUG TOUCH UP PAINTER Work Phone: [place] [address]Uynmvyceyv34-20-5289 15:49-0033UfQ5% (BldA) [Mass fraction]97 %Naya Paganoll RUG TOUCH UP PAINTER Work Phone: [facility] HospitalWlzehjiydn32-17-7752 15:49-0400Systolic blood kheybotm174 mm[Hg]Naya Butler RUG TOUCH UP PAINTER Work Phone: [facility] HospitalGletieqxxo09-70-0259 13:55-0400Body lnmpoz555.1 cmMD Alyssa Butterfield Work Phone: 1(553)[address]558 [address]08-22-2024 13:55-0400 Body mass index (BMI) [Ratio]45.1 kg/m2MD Alyssa Butterfield Work Phone: 1(577)[address] [place], [place] 2308908-22-2024 13:55-0400 Body yozrvx697.92 kgMD Alyssa Butterfield Work Phone: 1(434)[address] [place], [place] 2308908-22-2024 13:55-0400 Diastolic blood pxevqhnu79 mm[Hg]MD Alyssa Butterfield Work Phone: 1(878)92258 [address]08-22-2024 13:55-0400 Heart qgvn225 /minMD Alyssa Butterfield Work Phone: 1(362)[address] [place], [place] 2308908-22-2024 13:55-0400 Systolic blood uxgkgxrx41 mm[Hg]MD Alyssa Butterfield Work Phone: 1(241)47558 [address]08-20-2024 09:35-0400 Diastolic blood nofofdqu61 mm[Hg]MD Alyssa Butterfield Work Phone: 1(710)69558 [address]08-20-2024 09:35-0400 Heart rate72 /minMD Alyssa Butterfield Work Phone: 1(472)[address]08-20-2024 09:35-0400 Respiratory rate16 /minMD Alyssa Butterfield Work Phone: 1(937)[address] [place], [place] 2308908-20-2024 09:35-0400 SaO2% (BldA) [Mass fraction]96 %MD Alyssa Butterfield Work Phone: 1(032)27158 [address]08-20-2024 09:35-0400 Systolic blood axmwtarg708 mm[Hg]MD Alyssa Butterfield Work Phone: 1(409)89358 [address]08-20-2024 07:59-0400 Body muprpm674.1 cmMD Alyssa Butterfield Work Phone: 1(818)53558 [address]08-20-2024 07:59-0400 Body uolser457.2 kgMD Alyssa Butterfield Work Phone: 1(976)26[address]08-01-2024 09:51-0400 Body .1 cmMD Alyssa Butterfield Work Phone: 1(980)98758 [address]08-01-2024 09:51-0400 Body mass index (BMI) [Ratio]44.7 kg/m2MD Alyssa Butterfield Work Phone: 1(614)516[address]08-01-2024 09:51-0400 Body nokzkf508.01 kgMD Alyssa Butterfield Work Phone: 1(337)04558 [address]08-01-2024 09:51-0400 Diastolic blood yzsnqwzn87 mm[Hg]MD Alyssa Butterfield Work Phone: 1(454)87358 [address]08-01-2024 09:51-0400 Heart rate88 /minMD Alyssa Butterfield Work Phone: 1(324)60958 [address]08-01-2024 09:51-0400 Systolic blood mm[Hg]MD Alyssa Butterfield Work Phone: 1(363)37358 [address]07-11-2024 09:30-0400 Body seomol641.1 cmMD Alyssa Butterfield Work Phone: 1(046)09558 [address]07-11-2024 09:30-0400 Body mass index (BMI) [Ratio]44.6 kg/m2MD Alyssa Butterfield Work Phone: 1(154)43658 [address]07-11-2024 09:30-0400 Body gsxzuzybihx47.4 [degF]MD Alyssa Butterfield Work Phone: 1(859)72558 [address]07-11-2024 09:30-0400 Body dzapmm414.56 kgMD Alyssa Butterfield Work Phone: 1(609)558-14[facility]07-11-2024 09:30-0400 Diastolic blood mm[Hg]MD Alyssa Butterfield Work Phone: 1(443)85558 [address]07-11-2024 09:30-0400 Heart rate74 /minMD Alyssa Butterfield Work Phone: 1(434)44558 [address]07-11-2024 09:30-0400 SaO2% (BldA) [Mass fraction]98 %MD Alyssa Butterfield Work Phone: 1(383)7[address]58 [address]07-11-2024 09:30-0400 Systolic blood jkruwezy835 mm[Hg]MD Alyssa Butterfield Work Phone: 1(763)64[address]06-25-2024 15:22-0400 Body aqpedl878.1 cmMD Alyssa Butterfield Work Phone: 1(723)[address]06-25-2024 15:22-0400 Body mass index (BMI) [Ratio]44.4 kg/m2MD Alyssa Butterfield Work Phone: 1(480)02058 [address]06-25-2024 15:22-0400 Body nyztugjnnsp44.5 [degF]MD Alyssa Butterfield Work Phone: 1(225)60658 [address]06-25-2024 15:22-0400 Body imjomm198.1 kgMD Alyssa Butterfield Work Phone: 1(131)49[address]06-25-2024 15:22-0400 Diastolic blood sjjsirll23 mm[Hg]MD Alyssa Butterfield Work Phone: 1(593)13358 [address]06-25-2024 15:22-0400 Heart rate90 /minMD Alyssa Butterfield Work Phone: 1(195)36558 [address]06-25-2024 15:22-0400 Systolic blood giqtzhcf059 mm[Hg]MD Alyssa Butterfield Work Phone: 1(087)85458 [address]05-23-2024 13:48-0400 Body .1 cmMD Alyssa Butterfield Work Phone: 1(074)063[facility]73[facility]05-23-2024 13:48-0400 Body mass index (BMI) [Ratio]44.6 kg/m2MD Alyssa Butterfield Work Phone: 1(343)91358 [address]05-23-2024 13:48-0400 Body jgtpys945.56 kgMD Alyssa Butterfield Work Phone: 1(325)87458 [address]05-23-2024 13:48-0400 Diastolic blood unvreoak67 mm[Hg]MD Alyssa Butterfield Work Phone: 1(687)15158 [address]05-23-2024 13:48-0400 Heart rate83 /minMD Alyssa Butterfield Work Phone: 1(160)68558 [address]05-23-2024 13:48-0400 Systolic blood xfrpeodq820 mm[Hg]MD Alyssa Butterfield Work Phone: 1(064)[address] [place], [place] 2308904-24-2024 09:59-0400 Body jnfduw250.1 cmMD Alyssa Butterfield Work Phone: 1(150)[address] [place], [place] 2308904-24-2024 09:59-0400 Body mass index (BMI) [Ratio]44.1 kg/m2MD Alyssa Butterfield Work Phone: 1(019)[address] [place], [place] 2308904-24-2024 09:59-0400 Body idjpqc379.31 kgMD Alyssa Butterfield Work Phone: 1(932)01458 [address]04-24-2024 09:59-0400 Diastolic blood evqkuvyt19 mm[Hg]MD Alyssa Butterfield Work Phone: 1(941)80958 [address]04-24-2024 09:59-0400 Heart rate92 /minMD Alyssa Butterfield Work Phone: 1(835)73158 [address]04-24-2024 09:59-0400 SaO2% (BldA) [Mass fraction]98 %MD Alyssa Butterfield Work Phone: 1(946)52158 [address]04-24-2024 09:59-0400 Systolic blood pjwhygsq926 mm[Hg]MD Alyssa Butterfield Work Phone: [facility]03-25-2024 13:14-0400 Body aftsuz827.1 cmMD Alyssa Butterfield Work Phone: 1(859)177-87[facility]03-25-2024 13:14-0400 Body mass index (BMI) [Ratio]43.8 kg/m2MD Alyssa Butterfield Work Phone: 1(098)641-90[facility]03-25-2024 13:14-0400 Body .4 kgMD Alyssa Butterfield Work Phone: 1(844)931-89[facility]03-25-2024 13:14-0400 Diastolic blood wdysruxh70 mm[Hg]MD Alyssa Butterfield Work Phone: 1(899)875-61[facility]03-25-2024 13:14-0400 Heart rate92 /minMD Alyssa Butterfield Work Phone: 1(771)566-[address] [place], [place] 0446103-25-2024 13:14-0400 Systolic blood agpdcdvu111 mm[Hg]MD Alyssa Butterfield Work Phone: 1(168)66358 [address]03-13-2024 10:28-0400 Body efapal112.1 cmMD Alyssa Butterfield Work Phone: 1(241)119[facility]50[facility]03-13-2024 10:28-0400 Body mass index (BMI) [Ratio]42.4 kg/m2MD Alyssa Butterfield Work Phone: 1(907)917-94[facility]03-13-2024 10:28-0400 Body nhxmkvxncna18.1 [degF]MD Alyssa Butterfield Work Phone: 1(022)726-65[facility]03-13-2024 10:28-0400 Body eiymva289.72 kgMD Alyssa Butterfield Work Phone: 1(212)155-86[facility]03-13-2024 10:28-0400 Diastolic blood ucruwckk26 mm[Hg]MD Alyssa Butterfield Work Phone: 1(320)821-92[facility]03-13-2024 10:28-0400 Heart rate83 /minMD Alyssa Butterfield Work Phone: 1(419)48358 [address]03-13-2024 10:28-0400 Systolic blood udwxyyhm44 mm[Hg]MD Alyssa Butterfield Work Phone: 1(872)[address] [place], [place] 2308903-11-2024 08:55-0400 Body jqyrmu912.1 cmMD Alyssa Butterfield Work Phone: 1(674)[address] [place], [place] 2308903-11-2024 08:55-0400 Body mass index (BMI) [Ratio]42.5 kg/m2MD Alyssa Butterfield Work Phone: 1(221)[address] [place], [place] 2308903-11-2024 08:55-0400 Body quuqjcyjeql39.1 [degF]MD Alyssa Butterfield Work Phone: 1(270)[address] [place], [place] 2308903-11-2024 08:55-0400 Body .83 kgMD Alyssa Butterfield Work Phone: 1(348)[address] [place], [place] 2308903-11-2024 08:55-0400 Diastolic blood wzjfrigx44 mm[Hg]MD Alyssa Butterfield Work Phone: 1(268)[address] [place], [place] 2308903-11-2024 08:55-0400 Heart rate79 /minMD Alyssa Butterfield Work Phone: 1(322)[address] [place], [place] 2308903-11-2024 08:55-0400 Systolic blood aaufcplu603 mm[Hg]MD Alyssa Butterfield Work Phone: 1(131)[address] [place], [place] 2308902-01-2024 08:30-0500 Body xnacyq865.1 cmMD Alyssa Butterfield Work Phone: 1(893)[address] [place], [place] 2308902-01-2024 08:30-0500 Body hkodmp184.47 kgMD Alyssa Butterfield Work Phone: 1(319)[address] [place], [place] 2308902-01-2024 08:30-0500 Diastolic blood povpwtsg11 mm[Hg]MD Alyssa Butterfield Work Phone: 1(079)[address] [place], [place] 2308902-01-2024 08:30-0500 Systolic blood vkzjrnfu689 mm[Hg]MD Alyssa Butterfield Work Phone: 1(897)[address] [place], [place] 2308901-23-2023 09:45-0500 Body naoiti892.1 cmAlyssa Scout Other noCoraid Other 01-23-2023 09:45-0500Body mass index (BMI) [Ratio] 43.26 kg/m7Wpfajh Scout Other noCoraid Other 01-23-2023 09:45-0500Body joiiqy149.94 kgSusannawon Scout Other noCoraid Other 01-23-2023 09:45-0500Diastolic blood mqiqnzkr19 mm[Hg] Alyssa Butterfield Other noCoraid Other 01-23-2023 09:45-0408NbE9% (BldA) [Mass fraction]91 % Alyssa Butterfield Other [facility] Other 01-23-2023 09:45-0500Systolic blood bmogcojt027 mm[Hg] Alyssa Butterfield Other [facility] Other Encounters Encounter DateEncounter TypeCare ProviderFacilityStart: 12-10-2024 End: 29-33-8241Jzkeee outpatient visit 15 minutesCorey Harpreet DO Work Phone: noMS [facility] OBGYNComment on above:FolliculitisStart: 12-10-2024 End: 99-26-2317tlaegiwnfjLWIPU FAZIONot AvailableStart: 12-10-2024 End: 05-00-4103Bixdcy flowsheetCorey Harpreet DO Work Phone: noMS [place] OBGYNStart: 12-10-2024 End: 75-70-0461Zsdcxp flowsheetCorey Ahrpreet DO Work Phone: [facility] [place] OBGYNStart: 12-10-2024 End: 00-43-9025Lgklpgbs Result EncounterCorey Harpreet DO Work Phone: noms External Department UnsolicitedStart: 12-09-2024 End: 28-21-3940byqgrjpckhOtfktl E Braun MD Work Phone: -[facility]art: 12-09-2024 End: 51-25-2710Lulipbm encounter procedureAlyssa Butterfield MD-[facility] Work Phone: Start: 11-17-2024 End: 19-57-6760rwcwraoyozFaahit E Braun MD Work Phone: [facility] Work Phone: Start: 11-17-2024 End: 95-66-2019Vruspye encounter procedureSreji Butler CKZR-VSI-W-[facility] [place] Work Phone: Start: 11-13-2024 End: 85-64-7373Ulklby Barb Grier MD Work Phone: [facility] EndocrinologyStart: 11-13-2024 End: 55-06-1335Nznfgc Barb Grier MD Work Phone: [facility] EndocrinologyStart: 11-13-2024 End: 37-52-6721Ttfydw outpatient visit 25 minutesSeamus Grier MD Work Phone: noms [facility] EndocrinologyComment on above: Subclinical hypothyroidism (Primary Dx); Vitamin D deficiency; Encounter for dietary consultation; Class 3 severe obesity due to excess calories without serious comorbidity with body mass index (BMI) of 40.0 to 44.9 in adult ([facility])Start: 11-13-2024 End: 50-13-7583wqzvxhutroRFIMY F SABBAGHNot AvailableStart: 14-98-1998Bgx- patient / Non-visitSeamus Grier MD-[facility] Work Phone: Start: 08-21-2024 End: 20-18-2365gzzibnejlhQSSXBGood [facility]ar[facility] Start: 08-21-2024 End: 20-73-3610Pscwum outpatient visit 25 minutesFran Velazquez MD Work Phone: [facility] on above:Lightheadedness; Mixed hyperlipidemia; SOB (shortness of breath) on exertion; Tachycardia; Palpitations; PCOS (polycystic ovarian syndrome); Snoring; Never smoked tobacco; BMI 45.0-49.9, adult (Multi)Start: 08-04-2024 End: 47-28-4104bsswpbjutnRqqyon E Braun MD Work Phone: [facility] Work Phone: Start: 08-04-2024 End: 28-98-4333Lewtqtd encounter procedureAlyssa Butterfield MD-[facility] Work Phone: Start: 07-30-2024 End: 24-88-6388uqldgcujzlYkovvd E Braun MD Work Phone: [facility] Work Phone: Start: 07-30-2024 End: 30-10-4003Exgcvvb encounter Rajeev Butler APRN-FNP-C-[facility] [place] Work Phone: Start: 07-24-2024 End: 29-68-9125hxiayiicnkVLEDV F SABBAGHNot AvailableStart: 07-23-2024 End: 58-81-6244uqhsqtoofeJCOIGUniversity Hospitals Lake West Medical Centertart: 07-23-2024 End: 79-90-0948Tpocolawol hospital visit by Lynette Bey Echo/[facility]asc [facility] 2[facility]Comdu[facility] on above:SOB (shortness of breath) on exertion; VertigoStart: 07-17-2024 End: 16-38-9555Chosonneel Grier MD Work Phone: [facility]MIN[facility] ENDOCRINOLOGYStart: 07-17-2024 End: 43-14-2517Kshupdharvinder Grier MD Work Phone: noms ENDOCRINOLOGYStart: 07-17-2024 End: 27-30-6369drrmztqvizQZFTM F SABBAGHNot AvailableStart: 07-17-2024 End: 55-11-7738Txjpre outpatient new 45 minutesSeamus Grier MD Work Phone: noms ENDOCRINOLOGYComment on above:Subclinical hypothyroidism (Primary Dx); Vitamin D deficiency; Encounter for dietary consultation; Class 2 obesity due to excess calories without serious comorbidity with body mass index (BMI) of 36.0 to 36.9 in adultStart: 06-17-2024 End: 07-76-0050Fbukgbq encounter procedureAlyssa Butterfield MD Work Phone: [facility]ro[facility] Work Phone: Start: 06-17-2024 End: 76-44-7869anomjruehfUxsbki E Braun MD Work Phone: [facility] Work Phone: Start: 06-04-2024 End: 75-89-3241rsunwfyblvOshhekgnb [facility] Work Phone: Start: 06-04-2024 End: 64-53-3676Uomkkzg encounter procedureW[facility] Phys[facility] GroupHolzer [facility] Work Phone: Start: 05-28-2024 End: 15-66-5327Angajvupgh hospital visit by Lynette Bey Stress Room 1 [facility] AlabamaComment on above:SOB (shortness of breath) on exertion; Lightheadedness; Palpitations; Near syncope; VertigoStart: 05-28-2024 End: 66-48-3425bhmhoedhisAHSIXMarymount Hospitaltart: 21-41-1312wqebbfertjSzpxufpkzmd AbdelazizFacility:[facility] Toledotart: 05-19-2024 End: 87-24-1118pjickmjchqCPGNGHenrico Doctors' [facility] Amb[facility] Start: 51-46-3327Kfe-patient / Non-visitFirelands Physician Group-[facility] Work Phone: Start: 05-15-2024 End: 59-43-3274Lujara outpatient new 60 minutesFran Velazquez MD Work Phone: uh [facility] HospitalComment on above:Encounter to establish care; Mixed hyperlipidemia; SOB (shortness of breath) on exertion; Lightheadedness; Palpitations; Near syncope; Vertigo; Snoring; Insulin resistance; PCOS (polycystic ovarian syndrome); Family history of breast cancer; Adrenal mass 1 cm to 4 cm in diameter with no history of malignant neoplasm; Anxiety; Vitamin D deficiency; Hx of section; BMI 45.0-49.9, adult (Multi); Never smoked tobacco; TachycardiaStart: 05-15-2024 End: 16-55-8837posruuqnygZAAVV H [facility] Start: 05-01-2024 End: 08-84-3116ktprpwnsjeVmwghgoswOhioHealth Grady [facility] Hospital Work Phone: Start: 05-01-2024 End: 38-73-4947Dqictru encounter procedureWake Forest [facility] Physician GroupHolzer Hospital Work Phone: Start: 04-29-2024 End: 21-64-4981ekstnelmxwZXDLI CARROLLNot AvailableStart: 04-01-2024 End: 14-26-3817Thhnadrbb encounterSreji Butler RUG TOUCH UP PAINTER Work Phone: ana BELLEVUEStart: 04-01-2024 End: 82-18-8461hcjaiajmoyOgfazak J Martinez PT Work Phone: NOTK SWS PTComment on above:Cervicalgia (Primary Dx); Vertigo of central originStart: 03-27-2024 End: 61-38-9983qtjwtraqckFrefpdyxbOhioHealth Grady Memorial Hospital Work Phone: Start: 03-27-2024 End: 27-38-5283Qczvafb encounter procedureWake Forest [facility] Physician GroupHolzer Hospital Work Phone: Start: 03-11-2024 End: 45-05-8089Hjxueb outpatient visit 15 minutesSarah Butler RUG TOUCH UP PAINTER Work Phone: aNA BELLEVUEComment on above:Dizziness (Primary Dx); Intracranial hypertension; Class 3 severe obesity due to excess calories with serious comorbidity and body mass index (BMI) of45.0 to 49.9 in adult ([facility]); Encounter for medication monitoringStart: 03-11-2024 End: 75-13-5027begivwopixXGMPR CARROLLNot AvailableStart: 03-11-2024 End: 98-34-7578Iozqjy flowsNeda Butler RUG TOUCH UP PAINTER Work Phone: aNA MINAEVUEStart: 03-11-2024 End: 13-95-4483Xhdlee Duran Butler RUG TOUCH UP PAINTER Work Phone: aNA MINAEVUEStart: 03-11-2024 End: 59-99-0228Yatbessad Jerome Butler RUG TOUCH UP PAINTER Work Phone: aNA BELLEVUEComment on above:Ophtho noteStart: 03-06-2024 End: 04-08-5573Tdzqjx flowsheetCorey Harpreet DO Work Phone: [facility] BCP OBStart: 03-06-2024 End: 02-16-7428Upitxm flowsheetCorey Harpreet DO Work Phone: [facility] BCP OBStart: 03-06-2024 End: 51-79-9436Qzkoyyklj Result EncounterCorey Harpreet DO Work Phone: [facility] External Department UnsolicitedStart: 03-06-2024 End: 94-63-7529Qdaokls encounter procedureCorey Harpreet DO Work Phone: [facility] Work Phone: Start: 03-06-2024 End: 16-23-1014Wewvpagv preventive med est patient 18-39 yrsCorey Harpreet DO Work Phone: [facility] BCP OBComment on above:Well woman exam with routine gynecological exam; control counselingStart: 03-06-2024 End: 09-48-6427wkoyifiqafNHIXT [facility] Work Phone: Start: 02-26-2024 End: 88-03-6211ucjnktiyhaAgbzadaesOhioHealth Grady Memorial Hospital Work Phone: Start: 02-26-2024 End: 61-97-7928Ntyajrt encounter procedureW[facility] Physician [facility] Work Phone: Start: 02-14-2024 End: 67-33-8896utshyufmoyNdplwgafuOhioHealth Grady Memorial Hospital Work Phone: Start: 02-14-2024 End: 58-98-7961Yanzncj encounter procedureW[facility] Physician [facility] Work Phone: Start: 02-05-2024 End: 03-47-3472LwnmhcsznLjgayyf J Martinez PT Work Phone: noms SWS PTComment on above:Cervicalgia (Primary Dx); Vertigo of central origin; Balance disorderStart: 01-23-2024 End: 61-20-6424NudjxqwtvmEcupjzv J Martinez PT Work Phone: NOM[facility] SWS PTComment on above:Cervicalgia (Primary Dx); Balance disorder; Dizziness; Vertigo of central originStart: 01-22-2024 End: 19-13-8114Afoslr Duran Butler RUG TOUCH UP PAINTER Work Phone: noms NE NEUROStart: 01-22-2024 End: 24-49-1776Ghcewk flowsNeda Butler RUG TOUCH UP PAINTER Work Phone: NOGJ NE NEUROStart: 01-22-2024 End: 13-12-3883Hhxmnkehm Result Jerome Butler RUG TOUCH UP PAINTER Work Phone: noms External Department UnsolicitedStart: 01-22-2024 End: 61-91-8539Zkyssa outpatient visit 25 minutesSaveronica Butler RUG TOUCH UP PAINTER Work Phone: noms NE NEUROComment on above:Dizziness (Primary Dx); Intracranial hypertension; Class 3 severe obesity due to excess calories with serious comorbidity and body mass index (BMI) of45.0 to 49.9 in adult ([facility]); Encounter for medication monitoringStart: 01-22-2024 End: 79-14-9938ctqrkasshtFGINZ CARROLLNot AvailableStart: 01-17-2024 End: 10-01-7224Zzrjekq encounter procedureW[facility] Phys[facility] GroupHolzer Hospital Work Phone: Start: 12-24-2023 End: 87-64-8655ocgltsfuoiQlpnhc E Braun MD Work Phone: [facility] Work Phone: Start: 12-24-2023 End: 03-85-7390Uwnftbz encounter Jamie Butterfield MD Work Phone: [facility] Work Phone: Start: 13-24-8300Jot-patient / Non-visitAlyssa Butterfield MD Work Phone: [facility] Work Phone: Start: 11-20-2023 End: 56-34-7674Ywrarf flowsheetChristopher Alex DO Work Phone: [facility] [address]Start: 11-20-2023 End: 03-48-4174Mbwljs flowsheetChristopher Alex DO Work Phone: [facility] [address]TEStart: 11-20-2023 End: [id number] outpatient visit 25 minutesChristopher Alex DO Work Phone: [facility] [address]TEComment on above:Intracranial hypertension (Primary Dx); Dizziness; Class 3 severe obesity due to excess calories with serious comorbidity and body mass index (BMI) of45.0 to 49.9 in adult ([facility])Start: 11-09-2023 End: 94-09-0065Nntuenf encounter procedureMD Alyssa Butterfield Work Phone: [facility] Main [place] Work Phone: Start: 11-09-2023 End: 04-78-0422mifylskcyxPM Alyssa Francois Scout Work Phone: [facility] Work Phone: Start: 10-23-2023 End: 80-34-2293Gwnrqiixi Result EncounterSreji Butler RUG TOUCH UP PAINTER Work Phone: noms External Department UnsolicitedStart: 10-23-2023 End: 28-07-3203Pvnnxjtlk Result EncounterSarajeannette Butler RUG TOUCH UP PAINTER Work Phone: noms External Department UnsolicitedStart: 10-22-2023 End: 14-93-9388izkirebgmvPF Alyssa Francois Scout Work Phone: [facility] Work Phone: Start: 10-22-2023 End: 14-46-9919Ncnbkcv encounter procedure Alyssa Scout Work Phone: [facility] Work Phone: Start: 10-18-2023 End: 24-17-9092Pmbsyyezt encounterOlivia Deemer [facility] [address] [address] Start: 10-16-2023 End: 46-71-3500Cymnytkss encounterSreji Butler RUG TOUCH UP PAINTER Work Phone: noms [place] [address]TEStart: 10-15-2023 End: 78-39-0051Ygsyzp outpatient visit 25 minutesSarajeannette Butler RUG TOUCH UP PAINTER Work Phone: noms [place] STATE R[address]TEComment on above:Intracranial hypertension (Primary Dx); Encounter for medication monitoring; Headache, unspecified headache type; DizzinessStart: 10-15-2023 End: 39-77-8034Pmidqs flowsheetSreji Butler RUG TOUCH UP PAINTER Work Phone: [facility] [place] [address]TEStart: 10-15-2023 End: 68-70-6520Ntkmzg flowsheetSreji Butler RUG TOUCH UP PAINTER Work Phone: noms [place] [address]TEStart: 09-27-2023 End: 01-96-0763ghhuidpqmyVQ Marcia E Braun Work Phone: [facility] Work Phone: Start: 09-27-2023 End: 38-94-0989Rejfmaa encounter procedureMD Alyssa Butterfield Work Phone: [facility] Work Phone: Start: 09-25-2023 End: 22-16-8272Fjzalnx encounter procedureMD Alyssa Butterfield Work Phone: [facility]-XRay [facility] Work Phone: Start: 09-25-2023 End: 22-79-4552ahymowytgbZO Marcia E Braun Work Phone: [facility] Work Phone: Start: 09-06-2023 End: 93-67-5067riwbvldwpvSK Marcia E Braun Work Phone: [facility] Work Phone: Start: 09-06-2023 End: 30-78-3413Admoydc encounter procedureMD Alyssa Butterfield Work Phone: [facility] Work Phone: Start: 08-16-2023 End: 05-21-8400yogtmrbxfpMO Marcia E Braun Work Phone: [facility] Work Phone: Start: 08-16-2023 End: 22-94-9837Vhfjjwq encounter procedureMD Alyssa Butterfield Work Phone: [facility] Work Phone: Start: 08-15-2023 End: 93-10-9798iwhpquqkozNF Marcia E Braun Work Phone: [facility] Work Phone: Start: 08-15-2023 End: 40-67-9954Msacnrx encounter procedureMD Alyssa Butterfield Work Phone: [facility] C[facility]-MRI Main [place] Work Phone: Start: 08-13-2023 End: 30-28-2386Mojbkukyf department patient visitMARCIA Alessandro BUTTERFIELDRegency Hospital [facility] Eastca [facility] Centertart: 07-31-2023 End: 67-78-7286njyjiqorhfLE Alyssa Butterfield Work Phone: [facility] Work Phone: Start: 07-31-2023 End: 53-64-0044Rfyiorw encounter procedureMD Alyssa Butterfield Work Phone: [facility] Work Phone: Start: 06-28-2023 End: 45-98-6250xfmwliiwusPS Alyssa Butterfield Work Phone: [facility] Work Phone: Start: 06-28-2023 End: 83-14-6191Uovvkgy encounter procedureMD Alyssa Butterfield Work Phone: [facility] Work Phone: Start: 53-35-4914Kjc-patient / Non-visitMD Alyssa Butterfield Work Phone: [facility] Work Phone: Start: 05-30-2023 End: 91-22-7317eudlbjleciMI Alyssa Butterfield Work Phone: [facility] Work Phone: Start: 05-30-2023 End: 50-30-6820Mzjpjwr encounter procedureMD Alyssa Butterfield Work Phone: [facility] Work Phone: Start: 05-25-2023 End: 30-06-2862yvdppgpetvTK Alyssa Butterfield Work Phone: [facility] Work Phone: Start: 05-25-2023 End: 26-85-2655Qdjjidrogf RecurringMD Alyssa Butterfield Work Phone: [address] [facility] Start: 86-23-3557Byjlpjdjgt RecurringMD Alyssa Butterfield Work Phone: [address] [facility] Start: 04-30-2023 End: 91-49-3032jqyrkoeylwEG Alyssa Francois Scout Work Phone: [facility] Work Phone: Start: 04-30-2023 End: 11-34-1549Msvoega encounter procedureMD Alyssa Butterfield Work Phone: [facility] Work Phone: Start: 99-05-7705Dswmttxief RecurringMD Alyssa Butterfield Work Phone: [address] [facility] Start: 04-18-2023 End: 05-79-5730Lcsqfkc encounter procedureMD Alyssa Butterfield Work Phone: [facility] Work Phone: Start: 04-16-2023 End: 13-22-3058Gunoahn encounter procedureMD Alyssa Butterfield Work Phone: [facility] Work Phone: Start: 03-13-2023 End: 34-59-8369uowvvmmrweQoalrz Braun Other [employer] Other Start: 97-83-5604Aogheoneu encounterAlyssa ButterfieldFPG [facility] Hospitaltart: 03-08-2023 End: 47-20-9963Beeucwr encounter procedureMD Alyssa Butterfield Work Phone: [facility]-Start: 05-17-2022 End: 66-95-9726yezhfajcefUzefjw Braun Other [facility] Other Start: 63-84-5570Jasqfgned encounterAlyssa Yang [facility] Hospitaltart: 02-27-2022 End: 11-55-3011uadfsodaysOS RICCI FAZIOFacility:S8Jcszi: 23-21-3858Tggqex outpatient visit 15 minutesAlyssa Yang [facility] Hospitaltart: 02-16-2022 Gynecological examination normalAlyssa Butterfield Other [employer] Other Start: 58-24-7767Scxly health examinationAlyssa Butterfield Other [facility] Other Start: 60-03-2066Kkbsxrzunzwph examination jennie Butterfield Other [facility] Other Start: 09-06-2021 End: 71-98-1042jsvoadsjixME RICCI FAZIOFacility:L8Hclcy: 08-30-2021 End: 76-69-5177imrxdvascjRQ RICCI FAZIOFacility:W5Popmw: 08-28-2021 End: 12-34-4759vngjscxohcKG KALPANA LUZFacility:F4Jmouc: 08-21-2021 End: 91-78-3029Lpepjcemwq and management of inpatientDR RICCI FAZIOFacility:H1 Start: 08-19-2021 End: 81-60-1614sosyhcdmmoKE RICCI FAZIOFacility:C4Sgryy: 07-30-2021 End: 85-13-4435vqysnxnskkNQ RICCI FAZIOFacility:L0Clere: 07-25-2021 End: 04-55-7539jfafsdthgjSK RICCI FAZIOFacility:W6Xriio: 06-09-2021 End: 46-50-8042hefxclmqkiNM RICCI FAZIOFacility:R5Umnni: 05-28-2021 End: 72-87-4026fbjdmrvlqbLU RICCI FAZIOFacility:U3Nlsjk: 05-06-2021 End: 71-37-2870krauauakswEF RICCI CLANCYZIOFacility:R5Sxoro: 06-05-2017 End: 77-82-4486PzeopksngqKOKTXI MOOREFacility:H1 Procedures DateProcedureProcedure DetailPerforming ClinicianStart: 10-20-2501BZUOQFWXK VAGINITIS (HTRX)Ricci Mullins DO Work Phone: Start: 05-15-2024H/O: sectionHx of sectionStriny Velazquez MD Work Phone: Start: 77-53-5381Zuf routine ecg w/least 12 lds w/i&r Fran Velazquez MD Work Phone: Start: 90-36-5669NTR,APTIMA HPV,AGE GDLNCorey Harpreet DO Work Phone: Start: 03-28-7449Yjxagudjxzf observation [Identifier] in Cervix by Cyto stainMiccamelial Kai PT Work Phone: start: 36-89-5654WPG BASIC METABOLIC PANELSyonyjeannette Butler RUG TOUCH UP PAINTER Work Phone: Start: 39-33-5338YYA venographyMD Alyssa Butterfield Work Phone: Start: 31-71-2269ZTA CMP (CMP) (FOR REMOTE CRITICAL ACCESS HOSPITAL USE) Naya Butler RUG TOUCH UP PAINTER Work Phone: Start: 49-88-9606Iuywshs microbial cultureAlyssa Butterfield MD Work Phone: Start: 81-68-8304Xnnecwxgo microbial cultureAlyssa Butterfield MD Work Phone: Start: 04-46-1149WVX (PCR)MD Alyssa Butterfield Work Phone: Start: 23-70-6192HXC (PCR)Alyssa Butterfield MD Work Phone: Start: 33-53-2594Pdoj stain microscopyAlyssa Butterfield MD Work Phone: Start: 69-27-7118Rwlvfhnxihcrd of transfusion reaction MD Alyssa Butterfield Work Phone: Start: 98-62-0986KWZ of headMD Alyssa Butterfield Work Phone: Start: 33-91-1711Wabryutsprb observation [Identifier] in Cervix by Cyto stainCorey Harpreet DO Work Phone: Start: 17-32-7991Cixv cerv/vag auto thin layer prep mnl screenCorey Harpreet DO Work Phone: Start: 81-21-4878Sykwusctywi observation [Identifier] in Cervix by Cyto stainSreji Butler RUG TOUCH UP PAINTER Work Phone: Start: 35-13-8935Vfngvzqihn of Products of Conception, Low Cervical, Open ApproachDR [facility] HOSPITALZIOStart: 62-62-3090Xkzvjpkwevon of Hormone into Female Reproductive, Via Natural or Artificial OpeningDR [facility] HOSPITALZIOStart: 57-14-3925Lsukpaim disease screeningSusannamalathinathaly Butterfield Other Antenatal screeningSusannacia Scout Other End: 52-54-9023Rmjyztjca screeningSusannacinathaly Scout Other Diabetes mellitus screeningSusannamalathinathaly Butterfield Other H/O: sectionAlyssa Scout Other Postnatal visitAlyssa Scout Other Plan of Treatment DateCare ActivityDetailAuthorStart: 93-58-3176Qmirny Vaccines (1 of 2)Zoster Vaccines (1 of 2)[facility] HospitalStbaraga: 66-78-8414KUfZ/Tdap/Td Vaccines (3 - Td or Tdap)DTaP/Tdap/Td Vaccines (3 - Td or Tdap)[facility]: 27-64-0294Tgmgazasw for malignant neoplasm of cervixNOMS HealthcareStart: 84-72-6515Wthmkvaqu for malignant neoplasm of cervix [facility]OM[facility] HealthcareStart: 10-50-5835Dzlcjonkp for malignant neoplasm of cervixNOMS HealthcareStart: 11-12-2025 End: 03-91-6566Zeuduwg encounter /08/2026 9:30 AM EDT Office [facility] [address] [place] [address] Seamus Grier MD [address] [place] [address] [facility]ocrinologyStart: 03-11-2025 End: 13-96-3960Kkyrofg encounter procedureNO BCP OBStart: 84-02-4755Udszzq Adult PhysicalYearly Adult PhysicalWadsworth-Rittman HospitalStart: 12-10-2024 End: 11-66-6133Rqzbrsl encounter ieepgypfk68/05/2025 3:20 PM EST Office Visit [facility] [address] [place] [address] Ricci Mullins, [address] [place] [address] ArrivedNOMS Gonzalez OBGYNComment on above:ArrivedStart: 11-13-2024 End: 69-80-8081Ixzhqhnqrqw [Units/volume] in Serum or PlasmaTSH Lab Routine Subclinical hypothyroidism Expected: 11/13/2024 (Approximate), Expires: 11/13/2025NOGA HealthcareComment on above:Expected: 11/13/2024 (Approximate), Expires: 11/13/2025Start: 11-13-2024 End: 41-75-7356Omrgjsyte (T4) free [Mass/volume] in Serum or PlasmaT4, free Lab Routine Subclinical hypothyroidism Expected: 11/13/2024 (Approximate), Expires: 11/13/2025NOGA HealthcareComment on above:Expected: 11/13/2024 (Approximate), Expires: 11/13/2025Start: 11-13-2024 End: 47-50-4361Gimucqcgbiwafuxm (T3) Free [Mass/volume] in Serum or PlasmaT3, free Lab Routine Subclinical hypothyroidism Expected: 11/13/2024 (Approximate), Expires: 11/13/2025[facility] Work Phone: Comment on above:Expected: 11/13/2024 (Approximate), Expires: 11/13/2025Start: 11-13-2024 End: 68-35-8190Bbfzjaf encounter nsqdeufsi40/09/2025 9:30 AM EDT Office Visit [facility] [place] [facility] [address] [place] [address] Seamus Grier MD [address] [place] [address] ArrivedNOMS Bey EndocrinologyComment on above:ArrivedStart: 29-10-4637LDCZM-19 Vaccine ( season)COVID-19 Vaccine ( season)[facility] HealthcareStart: 77-91-8085Cddbtdfzk vaccinationWadsworth-Rittman HospitalStart: 08-21-2024 End: 67-43-1800Xvyjyvp encounter kwlyoeqgy57/17/2025 1:00 PM EDT Office Visit [address] [place] [phone] Fran Velazquez MD [address] [facility] [address] [place] [address] [facility]Start: 07-23-2024 End: 54-53-8073Qstuphs encounter wkcyepunl63/18/2025 7:45 AM EDT Appointment [address] [place] [address] [facility]Start: 07-17-2024 End: 02-74-1824Zyyngxafndx [Units/volume] in Serum or PlasmaTSH Lab Routine Subclinical hypothyroidism Expected: 07/17/2024 (Approximate), Expires: 07/17/2025NOGA HealthcareComment on above:Expected: 07/17/2024 (Approximate), Expires: 07/17/2025Start: 07-17-2024 End: 46-11-6840Asnqjhkhl (T4) free [Mass/volume] in Serum or PlasmaT4, free Lab Routine Subclinical hypothyroidism Expected: 07/17/2024 (Approximate), Expires: 07/17/2025[facility] HealthcareComment on above:Expected: 07/17/2024 (Approximate), Expires: 07/17/2025Start: 07-17-2024 End: 46-05-7917Swfaeybtvkwlfkvo (T3) Free [Mass/volume] in Serum or PlasmaT3, free Lab Routine Subclinical hypothyroidism Expected: 07/17/2024 (Approximate), Expires: 07/17/2025[facility]OC[facility] Work Phone: Comment on above:Expected: 07/17/2024 (Approximate), Expires: 07/17/2025Start: 07-17-2024 End: 46-05-2288YO Thyroid glandUS thyroid Imaging Routine Subclinical hypothyroidism Expected: 07/17/2024, Expires: 07/17/2025[facility] HealthcareComment on above:Expected: 07/17/2024, Expires: 07/17/2025Start: 82-89-2759Qjnyeag referralOhiohealth Marion General Hospital Work Phone: Start: 05-28-2024 End: 09-44-4954Nzcjxeb encounter /23/2025 2:30 PM EDT Appointment [address] [place] [address] [facility] AlabamaStart: 05-19-2024 End: 63-92-1522Phdpykocpwnv / ancillary services gazmbpdcxs88/14/2025 8:00 AM EDT Ancillary Procedure [address] [phone] [facility] BirminghamStart: 05-15-2024 End: 78-55-6548Onegnfu aminotransferase [Enzymatic activity/volume] in Serum or Plasma by With P-5'-PAlanine Aminotransferase Lab Routine Mixed hyperlipidemia Expected: 05/15/2024, Expires: 05/15/2025[facility] Work Phone: Comment on above:Expected: 05/15/2024, Expires: 05/15/2025Start: 05-15-2024 End: 63-77-0053Mqidsoett aminotransferase [Enzymatic activity/volume] in Serum or Plasma by With P-5'-PAspartate Aminotransferase Lab Routine Mixed hyperlipidemia Expected: 05/15/2024, Expires: 05/15/2025[facility] Work Phone: Comment on above:Expected: 05/15/2024, Expires: 05/15/2025Start: 05-15-2024 End: 05-02-6702Hpokrvh stress study ProcedureStress Test Cardiac Services Routine SOB (shortness of breath) on exertion Lightheadedness Palpitations Near syncope Vertigo Expected: 05/15/2024 (Approximate), Expires: 05/15/2025 [facility] Work Phone: Comment on above:Expected: 05/15/2024 (Approximate), Expires: 05/15/2025Start: 05-15-2024 End: 41-03-1148XJT panel - Blood by Automated countCBC Lab Routine Mixed hyperlipidemia SOB (shortness of breath) on exertion Lightheadedness Palpitati ons Near syncope Vertigo Expected: 05/15/2024, Expires: 05/15/2025[facility] Work Phone: Comment on above:Expected: 05/15/2024, Expires: 05/15/2025Start: 05-15-2024 End: 48-16-9940Oekxspbwinfrm metabolic 2000 panel - Serum or PlasmaComprehensive Metabolic Panel Lab Routine Mixed hyperlipidemia SOB (shortness of breath) on exertion Lightheadedness Palpitations Expected: 05/15/2024, Expires: 05/15/2025 [facility] Work Phone: Comment on above:Expected: 05/15/2024, Expires: 05/15/2025Start: 05-15-2024 End: 20-65-1413Vskzsu monitor studyHolter Or Event Offset Press Operator Cardiac Services Routine Lightheadedness Palpitations Expected: 05/15/2024 (Approximate), Expires: 05/15/2025[facility] Work Phone: Comment on above:Expected: 05/15/2024 (Approximate), Expires: 05/15/2025Start: 05-15-2024 End: 17-10-8934Xbkkg 1996 panel - Serum or PlasmaLipid Panel Lab Routine Mixed hyperlipidemia Expected: 05/15/2024, Expires: 05/15/2025[facility] Work Phone: Comment on above:Expected: 05/15/2024, Expires: 05/15/2025Start: 05-15-2024 End: 61-58-0290Tnyvdrywlxy [Units/volume] in Serum or PlasmaThyroid Stimulating Hormone Lab Routine SOB (shortness of breath) on exertion Lightheadedness Expect ed: 05/15/2024, Expires: 05/15/2025[facility] Work Phone: Comment on above:Expected: 05/15/2024, Expires: 05/15/2025Start: 05-15-2024 End: 93-63-7816Vlbc table studyTilt Table Cardiac Services Routine SOB (shortness of breath) on exertion Lightheadedness Palpitations Near syncope Vertigo Expected: 05/15/2024 (Approximate), Expires: 05/15/2026[facility] Work Phone: Comment on above:Expected: 05/15/2024 (Approximate), Expires: 05/15/2026Start: 05-15-2024 End: 72-31-7230HB Heart TransthoracicTransthoracic Echo Complete Echocardiography Routine SOB (shortness of breath) on exertion Vertigo Expected: 05/15/2024 (Approximate), Expires: 05/15/2026[facility] Work Phone: Comhyte on above:Expected: 05/15/2024 (Approximate), Expires: 05/15/2026Start: 04-29-2024 End: 76-86-5755Xqockqu encounter pdzjhfykc16/ 2:40 PM EDT Office Visit [facility] [place] [address] [place] [address] Naya Butler, RUG TOUCH UP PAINTER [address] [place] [address] [facility] PHILIPtart: 03-11-2024 End: 03-45-4086Nmwjgvk encounter procedureNOMS GONZALEZ [facility] ROUTEComment on above:ArrivedStart: 60-33-3549Qrzdtmr referralOhiohealth Marion General Hospital Work Phone: Start: 03-06-2024 End: 79-34-6829Noqnajq encounter procedureNOMS BCP OBComment on above:Arrived Start: 02-05-2024 End: 98-93-8750queoxvfcty97/31/2024 8:30 AM EST Treatment [facility] PT [address] [place] [address] Yun Naranjo, PT [address] [place] [address] NOMS SWS PTStart: 01-23-2024 End: 46-21-7392cntewtnmfp03/18/2024 7:30 AM EST Evaluation [facility] PT [address] [place] [phone] Yun Naranjo, PT [address] [place] [address] NOMS SWS PTStart: 01-22-2024 End: 13-45-5796Oaomx metabolic 1998 panel - Serum or PlasmaBasic metabolic panel Lab Routine Encounter for medication monitoring Expected: 01/22/2024 (Approxim ate), Expires: 01/21/2025[facility] Work Phone: comment on above:Expected: 01/22/2024 (Approximate), Expires: 01/21/2025Start: 01-22-2024 End: 77-49-7166Qibazlh encounter lipneavlt45/17/2024 1:00 PM EST Office Visit [facility] [address] [place] [address] Naya Butler, RUG TOUCH UP PAINTER [address] [place] [address] Indra PAULINO NEUROComment on above:ArrivedStart: 58-60-4726Ccdigfi referral [facility] Work Phone: Start: 11-20-2023 End: 55-81-6776Vuyfvsu encounter daocdrbci50/15/2024 8:15 AM EDT Office Visit [facility] [address] [place] [address] Amos Johnson DO [address] [place], [place] [id number] MelodieMS GONZALEZ STATE ROUTEComment on above:ArrivedStart: 11-19-2023 End: 67-28-4886Toonjhp encounter bamowmokn91/14/2024 12:15 PM EDT Office Visit [facility]ENE [address] [place] [address] Amos Johnson, DO [address] [place] [address] IRENE [facility]ALEZ [facility] ROUTEStart: 10-16-2023 End: 42-36-6853XJV Head vessels WO and W contrast IVMR venous head w and wo IV contrast Imaging Routine Intracranial hypertension Expected: 10/16/2023 ( Approximate), Expires: 10/14/2024NO[facility] HealthcareComment on above:Expected: 10/16/2023 (Approximate), Expires: 10/14/2024Start: 10-15-2023 End: 53-86-5980Vovxsyewaapvk metabolic 2000 panel - Serum or PlasmaComprehensive metabolic panel Lab Routine Encounter for medication monitoring Expected: 10/15/2023 (Approximate), Expires: 10/14/2024[facility] Work Phone: comment on above:Expected: 10/15/2023 (Approximate), Expires: 10/14/2024Start: 37-13-1613AZNYK-19 Vaccine ( season)COVID- 19 Vaccine ( season)[facility]: 66-49-4391Dzaujpduo vaccinationInfluenza Vaccine (#1)[facility] HealthcareStart: 82-95-5478WSN (PCR)CSF (PCR)[facility]: 09-25-2023 Microscopic observation [Identifier] in Unspecified specimen by Gram stain [facility]: 09-25-2023 End: 38-93-9637WlttxpwafRegency Hospital Toledotart: 31-07-3419Zezekqiuxqffn fluid cultureRegency Hospital Toledotart: 83-61-3931Ensbqrh [facility] Work Phone: Start: 73-27-4810Sptdrtnb mellitus screeningDiabetes ScreeningClermont County Hospital: 80-66-3234Ixjfqkv [facility] Work Phone: Start: 02-59-2288HMI Vaccines (1 - 3-dose standard series)HPV Vaccines (1 - 3-dose standard series)[facility]: 18-19-6588Fdlalbrqx for malignant neoplasm of cervixHPV/Cotest [facility]: 33-07-5859Drdwxpnel B Vaccines (1 of 3 - 19+ 3-dose series)Hepatitis B Vaccines (1 of 3 - 19+ 3-dose series)[facility]: 19-58-7044Wwbaiduse C screeningHepatitis C ScreeningUnTuscarawas Hospital: 68-31-6288Wsjshciqh vaccination Varicella Vaccines (1 of 2 - 13+ 2-dose series)[facility] Start: 68-87-3123PGB Vaccines (1 of 1 - Standard series)MMR Vaccines (1 of 1 - Standard series)[facility]: 82-72-7192UUR screening HIV ScreeningClermont County Hospital: 51-06-6036Zabrp panelLipid PanelUnTuscarawas Hospital: 39-52-3096Bleazs Adult Physical Yearly Adult PhysicalUnMain Campus Medical CenterBacteria identified in Unspecified specimen by Aerobe cultureClinton Memorial HospitalBacteria identified in Unspecified specimen by Anaerobe cultureClinton Memorial Hospital End: 21-35-6952Nocknoz stress study ProcedureKAYENTA HEALTH CENTER Service Area Work Phone: Comment on above:Once for 1 Occurrences starting 05/28/2024 until 05/28/2024ell count, cerebrospinal fluidClinton Memorial HospitalCerebrospinal fluid examinationClinton Memorial Hospital Cytology Cervical or vaginal smear or scraping studyPap Smear Pathology and Cytology Routine Well woman exam with routine gynecological exam Ordered: [facility] Work Phone: comment on above:Ordered: 03/06/2024Evaluation of cerebrospinal fluidClinton Memorial HospitalFluid sample volume measurementClinton Memorial HospitalHuman papilloma virus DNA [Presence] in Unspecified specimen by Probe with amplificationHPV DNA probe, amplified Microbiology Routine Well woman exam with routine gynecological exam Ordered: 03/06/2024[facility] HealthcareComment on above:Ordered: 03/06/2024 Meningitis+Encephalitis pathogens DNA and RNA panel - Cerebral spinal fluid by NIMA with non-probe detectionClinton Memorial HospitalPatient Education [facility] Lumbar Puncture Discharge InstructionsMercer County Community Hospital Work Phone: Patient referralOhiohealth Marion General Hospital Work Phone: End: 43-92-3512DU Heart TransthoracicKAYENTA HEALTH CENTER Service Area Work Phone: Comment on above:Once for 1 Occurrences starting 07/23/2024 until 07/23/2024[facility] Immunizations Immunization DateImmunizationNotesCare HnalkbdrMlqthbun72-28-0342bvgxnftlb, injectable, quadrivalent, preservative Enriqueta Grier MD Work Phone: [facility]OC[facility]nut LawnPbmuwvxugo39-54-3429lbtnbnkrp virus vaccine, unspecified Emmanuel Butler NP Work Phone: [facility]OC[facility] Walnut LawnRmbqtxyfbd85-52-1982ilukcfexe virus vaccine, split virus (incl. purified surface antigen)Alyssa Butterfield Other [facility] [employer] Other [id number] virus vaccine, unspecified formulationMD Alyssa Butterfield Work Phone: [facility]11-05-2022Influenza, injectable, Madin [place] Canine Kidney, preservative free, quadrivalentSarah Butler RUG TOUCH UP PAINTER Work Phone: [facility] HospitalSzbpjfsnqy08-33-1415mexwels toxoid, reduced diphtheria toxoid, and acellular pertussis vaccine, adsorbedSarah Butler RUG TOUCH UP PAINTER Work Phone: [facility] HospitalUxzjtlqwwm66-27-2384GJBBP-15 mRNA-1273 (Moderna) MD Alyssa Butterfield Work Phone: [facility]02-11-2021COVID-19 mRNA-1273 (Moderna)MD Alyssa Butterfield Work Phone: [facility] [facility]COVID-19 mRNA-1273 (Moderna)MD Alyssa Butterfield Work Phone: [facility]09-24-2019influenza, injectable, quadrivalent, preservative freeSarah Butler RUG TOUCH UP PAINTER Work Phone: [facility] HospitalOcstehwjoq08-12-6290vockbwv toxoid, reduced diphtheria toxoid, and acellular pertussis vaccine, adsorbedSarah Butler RUG TOUCH UP PAINTER Work Phone: [facility] HospitalZomoodqvdh95-81-0786ttxqunpkn, injectable, quadrivalent, preservative freeSarah Butler RUG TOUCH UP PAINTER Work Phone: [facility] HospitalZszvrnncyj89-49-6154fyigbzgth, injectable, quadrivalent, preservative freeSarah Butler RUG TOUCH UP PAINTER Work Phone: [facility] HospitalJzqlaorfti17-06-1229bhypdwhgl, seasonal, injectable, preservative freeSarah Butler RUG TOUCH UP PAINTER Work Phone: [facility] HospitalAwrfdjpneo63-19-1387xemyfxj and diphtheria toxoids, adsorbed, preservative free, for adult use (5 Lf of tetanus toxoid and 2 Lf of diphtheria toxoid)Alyssa Scout Other [facility] Payers DatePayer CategoryPayerPolicy [id number] Care (Private)[facility] [id number]9-4528Nvpsrwz Health Insurance1.2.840.599916.1.13.693.2.7.9.888938.527[id number] 2..1.089452.3.579.2.58975-48-2421Lljbenp8430041 2..1.803086.3.579.2.80871-74-4279Lglodwg5376569 2..1.890629.3.579.2.80085-93-7964Nxywscz0947911 2..1.239567.3.579.2.15395-40-1425Kxhdndp1654919 2..1.559794.3.579.2.24981-51-3276Bjzmkrg5444606 2..1.794033.3.579.2.42918-12-7810Wveibvk7298070 2..1.899166.3.579.2.81407-92-8855Pvlemwo9301702 2.840.1.234228.3.579.2.23087-55-6937Zyizyem2475686 2.16840.1.878578.3.579.2.23702-64-3643Tumbpsm1408857 2.0.1.483222.3.579.2.22177-52-2553Yjiamdi1953359 2.840.1.182970.3.579.2.58437-49-4597Iwfwaoi66339597 2..1.428375.3.579.2.147132-70-6527Pqlaxtz79762006 2..1.767119.3.579.2.707529-57-3195Vkcjvla75737988 2..1.912586.3.579.2.551656-00-8951Atqrovf653469760 2..1.291569.3.579.2.874155-89-4770Qpubftr963472310 2..1.086152.3.579.2.106650-96-7108Wgxejcv651360770 2..1.716870.3.579.2.115179-36-6576Umcmdcn93203065 2..1.296965.3.579.2.432745-47-4901Mwnuuqi08050071 2..1.982959.3.579.2.294627-79-0140Ryhojxg96239720 2.840.1.982258.3.579.2.802747-79-9882Mpcyjur22737491 2..1.039664.3.579.2.574400-50-3324Tgpnmlf9357292 2.16.840.1.048228.3.579.2.808130-48-0353Fdlporj3047559 2..0.1.715094.3.579.2.796257-49-3107Ijjgudb1894799 2..840.1.949142.3.579.2.163479-61-4236Vyemuln2432481 2.0.1.853077.3.579.2.233374-11-3508Mqdzlgy7835889 2.0.1.270842.3.579.2.291029-29-6995Tganbnf9394950 2..1.048866.3.579.2.282801-20-5442[facility] [id number] [id number] Health Insurance [id number] 2.840.1.867227.3.579.2.544Woovbqu86803832 2.840.1.133316.3.579.2.531 Sznrark15347556 2..1.851857.3.579.2.401Znrisvp58079284 2.0.1.443995.3.579.2.531 Social History DateTypeDetailFacilityUnknown if ever smokedCoraid Other Start: 10-15-2023 End: 87-14-6850Uip Assigned At BirthNoaudrain medical center [employer] Other Start: 07-13-2022 End: 61-90-4827Yszfhwj smoking status NHISNever smoked tobacco (finding) [facility]: [id number] Assigned At BirthFemale [facility]: 07-13-2022 End: 52-10-1576Gchtuah use and exposureSmokeless tobacco non-userNOGA Healthcare Start: 10-15-2023 End: 13-40-8079Hugqaznqi beverage intakeCurrent drinker of alcohol (finding)[facility] HealthcareStart: 10-15-2023 End: 08-65-4198Nhemkeveu beverage intakeNOGA HealthcareStart: 06-28-2022 Nncaiwzrv19QFUM HealthcareStart: 67-20-9815Kkq assigned at birthNot on fileNOGA HealthcareStart: 12-24-2023 End: 21-64-0056RypNikrgj (finding)[facility]: 27-43-8777Hjjqwgd CommentrareWadsworth-Rittman Hospital Work Phone: Start: 05-05-2024 End: 26-88-5410Bqqdeasq to SARS-CoV-2 (event)Not [facility]Start: 04-19-2022 End: 19-65-9498PftNfjhmzUxmkltddooUniversity [facility]als [facility] Clinical Notes 09-13-2020 to 12-10-2024 Note Date & GycvSmjyGgeyhcwo87-37-5980 History of Present illness Narrative* Ainsley Dowell, VESSEL SLAGMAN - 12/10/2024 3:20 PM EST Reason for Appointment: Patient ID: Rebecca White is a 34 y.o. female who presents for Rash Patient presents today for Acute Visit. and STD Check. MEDICATIONS Current Outpatient Medications Medication Instructions albuterol HFA 90 mcg/act inhaler 2 puffs, Every 6 hours PRN albuterol 2.5 mg, Every 6 hours PRN cholecalciferol (VITAMIN D-3) 2,000 Units, Daily cyanocobalamin (VITAMIN B-12) 1,000 mcg, Daily fexofenadine (RADHA ALLERGY) 180 mg, Daily furosemide (LASIX) 20 mg, Oral, Daily levothyroxine (SYNTHROID, LEVOXYL) 50 mcg, Daily before breakfast meclizine (ANTIVERT) 25 mg, 3 times daily PRN metFORMIN XR (GLUCOPHAGE-XR) 500 mg, 2 times daily after meals norethindrone (MICRONOR) 0.35 mg, Oral, Daily venlafaxine XR (EFFEXOR XR) 75 mg, Daily venlafaxine XR (EFFEXOR XR) 37.5 mg, Daily ALLERGIES Allergies Allergen Reactions Cat Dander Unknown Other Unknown Cigarette Smoke PROBLEMS Active Ambulatory Problems Diagnosis Date Noted Depression 06/08/2022 Left carpal tunnel syndrome 06/08/2022 Right carpal tunnel syndrome 06/08/2022 Mass of left adrenal gland (HCC) 06/08/2022 Obesity 06/08/2022 Polycystic ovaries 06/08/2022 Secondary [...] Carpal tunnel syndrome, bilateral Childhood asthma (HCC) Family history of breast cancer Hand, foot [...] later had hysterectomy Other (varicose veins) Mother Alcohol abuse Father Diabetes Father No Known Problems Sister No Known Problems Brother Other (seasonal allergies) Daughter Breast cancer Maternal Grandmother Darcy [place] Uterine cancer Maternal Grandmother [place]cy [place] Cancer Maternal Grandmother Darcy [place] Uterine cancer Paternal Grandmother Kim Maya Cancer Paternal Grandmother Kim Maya Lung cancer Paternal Grandfather SURGICAL HISTORY Past Surgical History: Procedure Laterality Date ADRENAL GLAND SURGERY 2002 mass removed, benign; partial adrenalectomy CARPAL TUNNEL RELEASE Right 07/05/2022 Dr Foley CARPAL TUNNEL RELEASE Left 08/02/2022 Dr Foley SECTION, CLASSIC 2021 IR LUMBAR PUNCTURE VAGINAL DELIVERY WISDOM TOOTH EXTRACTION REVIEW OF SYSTEMS Review of Systems: Review of Systems Constitutional: Negative. HENT: Negative. Eyes: Negative. Respiratory: Negative. Cardiovascular: Negative. Gastrointestinal: Negative. Genitourinary: Negative. Musculoskeletal: Negative. Skin: Negative. Neurological: Negative. All other systems reviewed and are negative. Hematological: Negative. Endocrine: Negative. Allergic/Immunologic: Negative. OBJECTIVE Objective: Physical Exam Constitutional: Appearance: Normal appearance. She is well-developed. Genitourinary: Vulva normal. Cardiovascular: Rate and Rhythm: Normal rate and [...] nursing note reviewed. Exam conducted with a spin table operator present. Vitals: Estimated body mass index is 45.18 kg/m as calculated from the following: Height as of 11/13/24: 5' 5 . Weight as of this encounter: 271 lb 8 oz. BP: 106/80 No LMP recorded. Assessment/Plan ICD-10-CM 1. Folliculitis L73.9 Pt presents for a sore lesion on vulva, folliculitis noted. Rx for keflex faxed to pharmacy. Cultures obtained. Pt to return for annual exam. Documented by Ainsley Dowell LPN on behalf of: Ricci Mullins DO documented in this encounterEastern [facility] State HospitalRydnpckaro48-33-0785 Evaluation note* Diagnosis Onset Date Resolution Status Admit Date Dizziness acuteOctober 2024 11:31amIntracranial hypertensionacuteOctober 2024 11:31amObesityacuteOctober 2024 11:31am [facility] Work Phone: 1(293) 548-805810-09-2025 History of Present illness Narrative* Seamus Grier MD - 11/13/2024 9:30 AM EDT Rebecca White is a 34 y.o. female No ref. provider found presents with chief complaint of Follow-up and Thyroid Problem (LAB/US) HPI: IM, : 11/2024 Follow-up visit 11/13/2024 for lab TSH 3.8, free T4 1.04 ( 176-1.64), free T3 2.21 ( 2.18-3.9_, sheis on levothyroxine 50 mcg daily feels better. 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 She reports no family history of thyroid disease. She has one child and is not interested in havinganother child at this time. She has not [...] Oral, Daily levothyroxine (SYNTHROID, LEVOXYL) 50 mcg, Daily before breakfast meclizine (ANTIVERT) 25 mg, [...] POINT OF SYSTEM REVIEWED AND NEGATIVE OBJECTIVE: 01/22/2024 1:01 PM 03/06/2024 8:40 AM 03/11/2024 4:21 PM 04/29/2024 2:37 PM 06/04/2024 11:24 AM 07/17/2024 9:31 AM 11/13/2024 9:30 AM Vitals BMI 45.43 kg/m2 45.62 kg/m2 45.76 kg/m2 46.2 kg/m2 46.76 kg/m2 46.26 kg/m2 45.43 kg/m2 BSA (m2) 2.38 m2 2.38 m2 2.39 m2 2.4 m2 2.41 m2 2.4 m2 2.38 m2 Systolic 118 120 142 126 118 120 Diastolic 70 78 86 76 78 72 Heart Rate 98 104 103 75 89 82 SpO2 96 % 95 % 96 % 97 % 95 % 94 % Resp 12 18 18 Height (in) 5' 5 5' 5 5' 5 Weight (lb) 273 274.12 275 277.6 281 278 273 Visit Report Report Report Report Report Report Report Physical Exam Constitutional: Appearance: Normal appearance. She [...] - T4, free; Future - TSH; Future We will continue with levothyroxine 50 mcg daily. Vitamin D deficiency Encounter for dietary consultation Class 3 severe obesity due to excess calories without serious comorbidity with body mass index (BMI) of 40.0 to 44.9 in adult ([facility]) Diet and exercise reviewed with the patient Follow-up on one year documented in this encounterEastern Missouri State HospitalKtmpagiukt92-90-1183 History of Present illness Narrative* Fran Velazquez MD - 08/21/2024 11:15 AM EDT CARDIOLOGY OFFICE NOTE Date: 08/21/2024 Patient: Rebecca White Date of : 1990 Primary Physician: Alyssa Butterfield MD REASON FOR VISIT / CHIEF COMPLAINT: Cardiology follow-up post testing HPI: Rebecca White was seen in cardiac evaluation at the [facility] office August 21, 2024. The patients [...] GLP-1 weight reduction medicines. Hydration was encouraged. [employer] portal use was encouraged. We will plan [...] LIST: Problem List[1] Fran Velazquez MD, FACC [facility] / Cardiology Of Note: Huayi voice recognition dictation software was utilized partially [...] presence of Dr. Fran Velazquez MD, FACC. I, Dr. Fran Velazquez MD, FACC, personally performed the services described [...] to establish care Tachycardia documented in this encounterWadsworth-Rittman Hospital Work Phone: 1(241) 526-500107-17-2025 Instructions* Patient Instructions* Lana Lucero RN - 08/21/2024 11:15 AM [...] ordered as needed only documented in this encounterWadsworth-Rittman Hospital Work Phone: 1(926) 347-189306-12-2025 History of Present illness Narrative* Seamus Grier MD - 07/17/2024 9:30 AM EDT Rebecca White is a 34 y.o. 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 She reports no family history of thyroid disease. She has one child and is not interested in havinganother child at this time. She has not [...] 3 to 4 months. documented in this encounterEastern Missouri State HospitalAnbxuwnods58-81-6207 Evaluation note* Diagnosis Onset Date Resolution Status Admit Date Abnormal thyroid blood test acuteApril 2024 11:17amDizzinessacuteJune 2024 1:03pmIntracranial hypertensionacuteJune 2024 1:03pmObesityacuteJune 2024 1:03pm [facility] Work Phone: 1(292) 335-924104-10-2025 History of Present illness Narrative* Fran Velazquez [...] Hydration was encouraged. Exercise dietary walking program. [employer] portal use was encouraged. We will plan to see back following the above testing with Laboratory Studies and ECG as noted. Patient will follow up with their primary physician for general care. The patient knows to contact medical care earlier if need be. HPI: Rebecca White was seen in cardiac evaluation at the [facility] office May 15, 2024. The patients [...] SOCIAL HISTORY: . 1 child. Works at [employer]. Stands much of the day. Never smoked. [...] None this visit. Fran Velazquez MD, FACC [facility] / Cardiology Of Note: Huayi voice recognition dictation software was utilized partially [...] both accurate and complete. documented in this encounterWadsworth-Rittman Hospital Work Phone: 1(309) 684-302604-10-2025 Instructions* Patient Instructions* Lana Lucero RN - [...] Consider getting compression socks documented in this encounterWadsworth-Rittman Hospital Work Phone: 1(668) 175-104503-27-2025 Evaluation note* Diagnosis Onset Date Resolution Status Admit Date Dizziness of unknown etiology acuteMarch 2024 2:47pmIntracranial hypertensionacuteMarch 2024 2:47pmSinusitis, acute maxillaryacuteMarch 2024 2:47pmAbnormal thyroid blood testacuteApril 2024 11:17amDizzinessacuteJune 2024 1:03pm Encounter for medication monitoringacuteJune 2024 1:03pmIntracranial hypertensionacuteJune 2024 1:03pmObesityacuteJune 2024 1:03pm [facility] Work Phone: 1([phone]) 764-801402-25-2025 Telephone encounter Note* Telephone Encounter - Naya Butler NP - 04/01/2024 9:23 AM EST Received a message from vestibular therapy stating the patient does not seem very interested/committed to therapy. Previously, she received 1 session of therapy and stopped coming stating work schedule challenge. She was rescheduled this am and sent a text 20 min before visit claiming she had stomach ache. [facility] [id number] Miscellaneous Notes* Telephone Encounter - Naya Butler [...] she had stomach ache. documented in this encounterEastern Missouri State HospitalNtcrwbadob67-28-4162 History of Present illness Narrative* Yun Naranjo, PT - 04/01/2024 8:50 AM EST Images from the original note were not included. Rebecca White [id number] 03/29/24 Subjective: Phone consult 04/26 34 yof [...] not very structured, has not talked to ticket maker in years Neck periodically painful, Has not [...] head at arms length with Blue & [place] Markers Smooth Pursuit: Pass, Performed Monocularly Negative [...] AIB-VAM Director Vestibular Rehabilitation documented in this encounterEastern Missouri State HospitalSxfpctrabc26-33-7041 Evaluation note* Diagnosis Onset Date Resolution Status Admit Date Intracranial hypertension acuteFebruary 2024 9:23amDizziness of unknown etiologyacuteMarch 2024 2:47pmIntracranial hypertensionacuteMarch 2024 2:47pmSinusitis, acute maxillaryacuteMarch 2024 2:47pmAbnormal thyroid blood testacuteApril 2024 11:17am [facility] Work Phone: 1(757) 565-157802-06-2025 Telephone encounter Note* Telephone Encounter - Naya Butler NP - 03/13/2024 3:37 PM EST I reviewed. Thank you! [facility] HospitalBndvddppuw76-74-8678 Miscellaneous Notes* Telephone Encounter - Naya Butler [...] ophthalmology note for review? documented in this encounterEastern Missouri State HospitalReewosdwux83-99-2663 Telephone encounter Note* Telephone Encounter - Shima Vallecillo MA - 03/13/2024 12:29 PM EST Routed to you and in Media. [facility] HospitalAfbprbmquu90-04-7988 Telephone encounter Note* Telephone Encounter - Naya Butler NP - 03/13/2024 11:36 AM EST Referral placed. [facility] HospitalTloeiqrthl27-43-0119 Telephone encounter Note* Telephone Encounter - Brant Raya MA - 03/12/2024 11:10 AM EST The patient calls in stating that she was told to continue her PT and her PT has . Needs a new order sent to [facility] PT. [facility] HospitalNfjbygwhuc36-27-7678 Telephone encounter Note* Telephone Encounter - Shima Vallecillo MA - 03/12/2024 10:41 AM EST Requested. [facility] HospitalBhsyosfhlt63-79-3259 Telephone encounter Note* Telephone Encounter - Naya Butler NP - 03/11/2024 5:41 PM EST Can you please request record of the patient's most recent ophthalmology note for review? [facility] HospitalWnwscaumff03-60-4646 Evaluation note* Diagnosis Onset Date Resolution Status Admit Date Intracranial hypertension acuteJanuary 2024 9:23amPanic attacksacuteJanuary 2024 9:23am Intracranial hypertensionacuteFebruary 2024 9:23amDizziness of unknown etiologyacuteMarch 2024 2:47pmIntracranial hypertensionacuteMarch 2024 2:47pmSinusitis, acute maxillaryacuteMarch 2024 2:47pmAbnormal thyroid blood testacuteApril 2024 11:17am [facility] Work Phone: 1(282) 455-329501-30-2025 History of Present illness Narrative* Padmaja Astorga [...] nursing note reviewed. Exam conducted with a spin table operator present. Vitals: Estimated body mass index is [...] of a continuous control. Slynd sent to [facility] and patient given handout in regards to pharmacy information. Orders Placed This Encounter Procedures HPV DNA probe, amplified Follow Up: Patient is to return in one year for annual unless needed otherwise. Documented by Padmaja Astorga LPN on behalf of: Ricci Mullins DO documented in this encounterEastern Missouri State HospitalYbaryptvay08-20-8951 Evaluation note* Diagnosis Onset Date Resolution Status Admit Date Intracranial hypertension acuteJanuary 2024 11:20amSinusitis, acute maxillaryacuteJanuary 2024 11:20amDizziness of unknown etiologyacuteJanuary 2024 9:58amIntracranial hypertensionacuteJanuary 2024 9:58amIntracranial hypertensionacuteJanuary 2024 9:23amPanic attacksacuteJanuary 2024 9:23amIntracranial hypertensionacuteFebruary 2024 9:23amDizziness of unknown etiologyacute May 01, 2024 2:47pmIntracranial hypertensionacuteMarch 2024 2:47pm [facility] Work Phone: 1(241) 732-645112-31-2024 History of Present illness Narrative* Yun Naranjo, PT - 02/05/2024 8:30 AM EST Images from the original note were not included. Rebecca White [id number] 02/05/24 Subjective: Phone consult 01/21 33 yof [...] head at arms length with Blue & [place] Markers Smooth Pursuit: Pass, Performed Monocularly Negative [...] Review hep Revise hep see attached Chin trell saini, vor standing Heat aerobics water Issue revised [...] AIB-VAM Director Vestibular Rehabilitation documented in this [facility]12-18-2024 History of Present illness Narrative* Yun Naranjo, PT - 01/23/2024 7:30 AM EST Images from the original note were not included. Rebecca White [id number] 01/22/24 Subjective: Phone consult 01/21 33 yof [...] head at arms length with Blue & [place] Markers Smooth Pursuit: Pass, Performed Monocularly Negative [...] AIB-VAM Director Vestibular Rehabilitation documented in this [facility]12-17-2024 Instructions* Patient Instructions* Naya Butler NP - 01/22/2024 1:00 PM EST - Referral to vestibular therapy ([facility]) - Check labs documented in this [facility]12-12-2024 Evaluation note* Diagnosis Onset Date Resolution Status Admit Date Anxiety acuteDecember 2023 3:29pmIntracranial hypertensionacuteDecember 2023 3:29pmSinusitis, acute maxillaryacuteDecember 2023 3:29pmIntracranial hypertensionacuteJanuary 2024 11:20amSinusitis, acute maxillaryacuteJanuary 2024 11:20amDizziness of unknown etiologyacuteJanuary 2024 9:58am Intracranial hypertensionacuteJanuary 2024 9:58amIntracranial hypertension acuteJanuary 2024 9:23amPanic attacksacuteJanuary 2024 9:23am [facility] Work Phone: 1(794) 542-700111-18-2024 Evaluation note* Diagnosis Onset Date Resolution Status Admit Date Intracranial hypertension acuteNovember 2023 3:19pmPCOS (polycystic ovarian syndrome)acuteNovember 2023 3:19pmHand, foot and mouth diseaseinactiveNovember 2023 3:19pm AnxietyacuteDecember 2023 3:29pmIntracranial hypertensionacuteDecember 2023 3:29pmSinusitis, acute maxillaryacuteDecember 2023 3:29pm [facility] Work Phone: 1(502) 856-231411-18-2024 Evaluation note* Diagnosis Onset Date Resolution Status Admit Date Intracranial hypertension acuteNovember 2023 3:19pmPCOS (polycystic ovarian syndrome)acuteNovember 2023 3:19pmHand, foot and mouth diseaseinactiveNovember 2023 3:19pm AnxietyacuteDecember 2023 3:29pmIntracranial hypertensionacuteDecember 2023 3:29pmSinusitis, acute maxillaryacuteDecember 2023 3:29pm Intracranial hypertensionacuteJanuary 2024 11:20amSinusitis, acute maxillaryacuteJanuary 2024 11:20am [facility] Work Phone: 1(995) 194-639211-18-2024 Evaluation note* Diagnosis Onset Date Resolution Status Admit Date Intracranial hypertension acuteNovember 2023 3:19pmPCOS (polycystic ovarian syndrome)acuteNovember 2023 3:19pmHand, foot and mouth diseaseinactiveDecember 2023 3:19pm AnxietyacuteDecember 2023 3:29pmIntracranial hypertensionacuteDecember 2023 3:29pmSinusitis, acute maxillaryacuteDecember 2023 3:29pm Intracranial hypertensionacuteJanuary 2024 11:20amSinusitis, acute maxillaryacuteJanuary 2024 11:20amDizziness of unknown etiologyacuteFebuary 2024 9:58amIntracranial hypertensionacuteJanuary 2024 9:58amPanic attacksacuteJanuary 2024 9:23am [facility] Work Phone: 1([phone]) 519-354810-15-2024 History of Present illness Narrative* Amos Johnson, - 11/20/2023 8:15 AM EDT Images [...] wrist extensors , wrist flexor , and interceptor operator strength 5/5. LUE strength deltoid , biceps , triceps , wrist extensors , wrist flexor , and interceptor operator strength 5/5. RLE strength iliopsoas, quadriceps, [...] reflex 1+. LLE Knee reflex 1+. Coordination: Cftbjc-so-pzeo testing normal. Rapid alternating movements are normal. Gait: Normal. Review and summary of old records: MR venogram on 11/09/[address] [facility]: No evidence of venous thrombosis. No acute intracranial pathology. Redemonstration of findings consistent with IH as seen on previous MRI. Laboratory evaluation on 10/23/2023: CMP is unremarkable. Specifically potassium is 3.8. Lumbar puncture (LP) at [facility] on 09/25/23: Opening pressure of 32 cm CSF. The patient denies any adverse effects to the LP. CSF on 09/25/23: CSF glucose 60, protein 23. Anaerobic culture no anaerobes isolated after 3 days. Aerobic culture no growth 2 days. Gram stain negative. PCR panel negative. I reviewed the patient's appointment note from [facility] on 09/03/23. 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 Dizziness The patient reports episodic, provoked dizziness. [...] recommended to have a vestibular evaluation in [place], [place]. PLAN: - I reviewed VNG results [...] new or worsening symptoms. documented in this encounterEastern Missouri State HospitalYmcdpdullo39-85-5008 Telephone encounter Note* Telephone Encounter - Naya Butler NP - 10/18/2023 10:42 AM EDT Acknowledged. Thank you! [facility] HospitalBdbrhlhjcz74-82-5135 Miscellaneous Notes* Telephone Encounter - Naya Butler NP - 10/18/2023 10:42 AM EDT Acknowledged. Thank you! * Telephone Encounter - Shima Vallecillo MA - 10/18/2023 10:21 AM EDT Called PT to ask about the [place] request for Medical information from [facility], PT told me to disregard paperowrk as she is getting it filled out by her PCP. documented in this encounterEastern Missouri State HospitalPfrflryrva70-09-4778 Telephone encounter Note* Telephone Encounter - Shima Vallecillo MA - 10/18/2023 10:21 AM EDT Called PT to ask about the [place] request for Medical information from [facility] [facility], PT told me to disregard paperowrk as she is getting it filled out by her PCP. [id number] Telephone encounter Note* Telephone Encounter - Naya Butler NP - 10/16/2023 6:05 PM EDT I will review this. Thank you! [facility] [id number] Miscellaneous Notes* Telephone Encounter - Naya Butler NP - 10/16/2023 6:05 PM EDT I will review this. Thank you! * Telephone Encounter - Naya Butler NP - 10/16/2023 9:55 AM EDT The patient states she had an eye exam at [facility] recently for IIH. Can you please request record of this for me to review? documented in this encounterEastern Missouri State [id number] Telephone encounter Note* Telephone Encounter - Naya Butler NP - 10/16/2023 9:55 AM EDT The patient states she had an eye exam at [facility] recently for IIH. Can you please request record of this for me to review? [facility] [id number] History of Present illness Narrative* Naya Butler [...] multiple side effects including fatigue, nausea, a uphf-dhh-ukqjjgv sensation in the feet when attempting to [...] resolves. It is primarily triggered by quick vuqi-mu-tgry head movements. However, it canalso be provoked [...] to lights or sounds. She has tried oxjq-gpz-zrblksq medications for her headaches, and these provide [...] Commonly known as: Buspar cholecalciferol 50 MCG (1999 UT) capsule; Commonly known as: Vitamin D-3 [...] Foley CARPAL TUNNEL RELEASE Left 08/02/2022 Dr Floey SECTION, CLASSIC 2021 VAGINAL DELIVERY WISDOM TOOTH [...] wrist extensors , wrist flexor , and interceptor operator strength 5/5. LUE strength deltoid , biceps , triceps , wrist extensors , wrist flexor , and interceptor operator strength 5/5. RLE strength iliopsoas, quadriceps, [...] reflex 1+. LLE Knee reflex 1+. Coordination: Jqldpg-ap-xxfb testing normal. Rapid alternating movements are normal. Gait: Normal. Review and summary of old records: Lumbar puncture (LP) at [facility] on 09/25/23: Opening pressure of 32 cm CSF. The patient denies any adverse effects to the LP. CSF on 09/25/23: CSF glucose 60, protein 23. Anaerobic culture no anaerobes isolated after 3 days. Aerobic culture no growth 2 days. Gram stain negative. PCR panel negative. I reviewed the patient's appointment note from [facility] on 09/03/23. Levi, ROYCE identified very mild sixth cranial nerve palsy with no visual field loss or disc edema. VNG at [facility] on 08/29/23: There is evidence of significant peripheral vestibular dysfunction. Positive [place]-Hallpike maneuver. This is suggestive of benign paroxysmal positional vertigo. There is also evidence of significant central vestibular dysfunction. MRI of the brain w and w/o contrast at [facility] on 08/15/23: There is flattening of the [...] an established patient at [facility] and plans to follow with them regularly [...] recommended to have a vestibular evaluation in [place], [place]. PLAN: - I reviewed VNG results [...] NP [facility] documented in this [facility]09-09-2024 Instructions* Patient Instructions* Naya Butler NP - 10/15/2023 3:40 PM EDT - Stop acetazolamide - Start furosemide 20 mg by mouth once a day - Check labs documented in this [facility]08-20-2024 Evaluation note* Diagnosis Onset Date Resolution Status Admit Date Intracranial hypertension acuteAugust 2023 7:41amHeadacheacuteAugust 2023 1:27pmIntracranial hypertensionacuteAugust 2023 1:27pmHeadacheacuteSeptember 2023 1:39pmIntracranial hypertensionacuteSeptember 2023 1:39pm [facility] Work Phone: 1(819) 447-488205-23-2024 Hospital Discharge instructionsAmbulatory Orders* Referral to Neurology Time Frame: 06/28/23, Location: None Selected [facility] Work Phone: 1(743) 134-943101-23-2023 Evaluation note* Encounter Date Diagnosis Assessment Notes Treatment Notes Treatment Clinical Notes Feb, Pain in right wrist (ICD-10 - M2 5.531) Feb,ain in left wrist (ICD-10 - M25.532) HESKA Other 07-17-2022 NoteOPERATIVE NOTE OPERATION DATE: 08/22/2021 PROCEDURE: Primary low transverse section. PREOPERATIVE DIAGNOSIS: 1. Intrauterine at 40 and 5/7 days. 2. Failure to induce, Cervidil x2. POSTOPERATIVE DIAGNOSIS: 1. Intrauterine at 40 and 5/7 days. 2. Failure to induce, Cervidil x2. ANESTHESIA: Spinal with Duramorph. SURGEON: Ricci Mullins D.O. DIESEL RETROFIT INSTALLER: REG Marcus URINE OUTPUT: Yellow and [...] to the Recovery Room in stable condition. [facility] Signed and Approved by: DR RICCI MULLINS . 08/26/2021 08:15:00[facility] [id number] NoteDISCHARGE SUMMARY DISCHARGE DATE: 09/09/2021 PRIMARY DIAGNOSES: [...] no longer on narcotics.[facility] [id number] NoteHNO ID: [id number] Author: Maurice Bonilla APRN.BIKE DESIGNER Service: ? Author Type: Nurse Practitioner Type: [...] Maurice Bonilla APRN.CNP September 13, 2020 11:59 [facility]Evaluation noteNo Information [place] [employer] Other Evaluation note* Diagnosis Onset Date Resolution Status Acute middle ear effusion acuteVertigoacuteVertigoLakeHealth [facility] Work Phone: Evaluation note* Diagnosis Onset Date Resolution Status Acute middle ear effusion acuteVertigoacuteVertigoacuteAcute middle ear effusionacuteVertlambsburgacute [facility] Work Phone: Evaluation note* Diagnosis Onset Date Resolution Status Acute middle ear effusion acuteVertigoacuteVertigoacuteAcute middle ear effusionacuteVertigoacuteVertigo acuteDizziness of unknown etiologyacute [facility] Work Phone: Evaluation note* Diagnosis Onset Date Resolution Status Vertigo acuteDizziness of unknown etiologyacute [facility] Work Phone: Evaluation note* Diagnosis Onset Date Resolution Status Vertigo acuteDizziness of unknown etiologyacuteBronchitisacute [facility] Work Phone: Evaluation note* Diagnosis Onset Date Resolution Status Dizziness of unknown etiology acuteBronchitisacuteHeadacheacuteIntracranial hypertensionLakeHealth [facility] Work Phone: Evaluation note* Diagnosis Onset Date Resolution Status Dizziness of unknown etiology acuteBronchitisacuteHeadacheacuteIntracranial hypertensionacuteAnxietyacute HeadacheacuteIntracranial hypertensionKindred Hospital [facility] Work Phone: Evaluation note* Diagnosis Onset Date Resolution Status Bronchitis acuteHeadacheacuteIntracranial hypertensionacuteAnxietyacuteHeadacheacute Intracranial hypertensionacuteIntracranial hypertensionacute [facility] Work Phone: Evaluation note* Diagnosis Onset Date Resolution Status Bronchitis acuteHeadacheacuteIntracranial hypertensionacuteAnxietyacuteHeadacheacute Intracranial hypertensionacuteIntracranial hypertensionacuteHeadacheacute Intracranial hypertensionacute [facility] Work Phone: Evaluation note* Diagnosis Onset Date Resolution Status Headache acuteIntracranial hypertensionacuteAnxietyacuteHeadacheacuteIntracranial hypertensionacuteIntracranial hypertensionacuteHeadacheacuteIntracranial hypertensionacuteHeadacheacuteIntracranial hypertensionacute [facility] Work Phone: Evaluation note* Diagnosis Intracranial hypertension- Primary Benign intracranial hypertension Dizziness Dizziness and giddiness Class 3 severe obesity due to excess calories with serious comorbidity and body mass index (BMI) of45.0 to 49.9 in adult ([facility]) documented in this encounter [facility] HealthcareEvaluation note* Diagnosis Dizziness- Primary Dizziness and giddiness Intracranial hypertension Benign intracranial hypertension Class 3 severe obesity due to excess calories with serious comorbidity and body mass index (BMI) of45.0 to 49.9 in adult ([facility]) Encounter for medication monitoring Encounter for [...] serious comorbidity and body mass index (BMI) of45.0 to 49.9 in adult ([facility]) Encounter for medication monitoring Encounter for [...] Tachycardia Unspecified tachycardia documented in this encounter [facility] Work Phone: Evaluation note* Diagnosis SOB (shortness of breath) on exertion Shortness of breath Lightheadedness Dizziness and giddiness Palpitations Near syncope Vertigo Dizziness and giddiness documented in this encounter [facility] Work Phone: Evaluation note* Diagnosis Subclinical hypothyroidism- Primary Other specified acquired hypothyroidism Vitamin D deficiency Encounter for dietary consultation Class 2 obesity due to excess calories without serious comorbidity with body mass index (BMI) of 36.0 to 36.9 in adult documented in this encounter [facility] HealthcareEvaluation note* Diagnosis SOB (shortness of breath) on exertion Shortness of breath Vertigo Dizziness and giddiness documented in this encounter [facility] Work Phone: Evaluation note* Diagnosis Lightheadedness Dizziness and giddiness Mixed hyperlipidemia SOB (shortness of breath) on exertion Shortness of breath Tachycardia Unspecified tachycardia Palpitations PCOS (polycystic ovarian syndrome) Polycystic ovaries Snoring Other dyspnea and respiratory abnormality Never smoked tobacco BMI 45.0-49.9, adult (Multi) documented in this encounter [facility] Work Phone: Evaluation note* Diagnosis Subclinical hypothyroidism- Primary Other specified acquired hypothyroidism Vitamin D deficiency Encounter for dietary consultation Class 3 severe obesity due to excess calories without serious comorbidity with body mass index (BMI) of 40.0 to 44.9 in adult ([facility]) documented in this encounter [facility] HealthcareEvaluation note* Diagnosis Onset Date Resolution Status Admit Date Dizziness acuteOctober 2024 11:31amIntracranial hypertensionacuteOctober 2024 11:31amObesityacuteOctober 2024 11:31am [facility] Work Phone: Evaluation note* Diagnosis Folliculitis Other specified disease of hair and hair follicles documented in this encounter [facility] HealthcareHistory general Narrative - Reported* Type Description Date Medical History BMI 40.0-44.9, adult Medical HistoryPCOS (polycystic ovarian syndrome)Medical HistoryAmenorrhea, secondaryMedical HistoryBronchitisMedical HistoryDepressionSurgical History ADRENALECTOMY, TOTAL, LEFT05/2013Hospitalization HistoryC [facility] [place] [facility] [employer] Other History general Narrative - Reported* Type Description Date Medical History BMI 40.0-44.9, adult Medical HistoryPCOS (polycystic ovarian syndrome)Medical HistoryAmenorrhea, secondaryMedical HistoryBronchitisMedical HistoryDepressionSurgical History ADRENALECTOMY, TOTAL, LEFT05/2013Surgical HistoryCarpal tunnel bilateral06/2022Hospitalization HistoryC [facility] [place] [facility] [employer] Other Hospital Discharge instructionsAmbulatory Orders* Referral to Psychiatry Time Frame: 03/06/24, Location: None [facility] Work Phone: Hospital Discharge instructionsAmbulatory Orders* Referral to Endocrinology Time Frame: 06/04/24, Location: None [facility] Work Phone: Rewcyh for referral (narrative)No reason for referral information availableOhiohealth [facility] General Hospital Work Phone: reason for visit Narrative* Rehabilitation - Outpatient (Routine) - Pending ReviewSpecialtyDiagnoses / ProceduresReferred By ContactReferred To ContactPhysical Therapy Diagnoses Dizziness Procedures [place] OFFICE/OUTPATIENT [facility] Naya Butler NP [address] [place] [phone] Phone: tel: Yun Naranjo, PT [address] [place] [address] Phone: tel: fax: Referral IDStatusReasonStart DateExpiration DateVisits RequestedVisits [id number] Review Consult and Treat / [facility] HealthcareReason for visit Narrative* Rehabilitation - Outpatient (Routine) - AuthorizedSpecialtyDiagnoses / ProceduresReferred By ContactReferred To ContactPhysical Therapy Diagnoses Dizziness Procedures LA OFFICE/OUTPATIENT [facility] Naya Butler, RUG TOUCH UP PAINTER [address] [place] [phone] Phone: tel: Yun Naranjo, PT [address] [place] [address] Phone: tel: fax: Referral IDStatusReasonStart DateExpiration DateVisits RequestedVisits [id number] Consult and Treat [facility] HealthcareReason for visit Narrative* Rehabilitation - Outpatient (Routine) - Pending ReviewSpecialtyDiagnoses / ProceduresReferred By ContactReferred To ContactPhysical Therapy Diagnoses Dizziness Procedures LA OFFICE/OUTPATIENT [facility] 60 MINUTES Naya Butler NP [address] [place] [phone] Phone: tel: Yun Naranjo, PT [address] [place] [address] Phone: tel: Referral IDStatusReasonStbaraga DateExpiration DateVisits RequestedVisits [id number] Review Consult and Treat / [facility] HealthcareReason for visit Narrative* Cardiac Stress Testing (Routine) - AuthorizedSpecialtyDiagnoses / ProceduresReferred By ContactReferred To ContactCardiology Diagnoses SOB (shortness of breath) on exertion Lightheadedness Palpitations Near syncope Vertigo Procedures Stress Test LA CV STRS TST XERS&/OR RX CONT ECG TRCG ONLY Fran Velazquez MD [address] [facility] [address] [place] [address] Phone: tel: fax: Referral IDStatusReasonStart DateExpiration DateVisits RequestedVisits [id number]/10/20254/ [facility] Work Phone: Reason for visit Narrative* CV Imaging (Routine) - AuthorizedSpecialtyDiagnoses / ProceduresReferred By ContactReferred To ContactCardiology Diagnoses SOB (shortness of breath) on exertion Vertigo Procedures Transthoracic Echo Complete LA ECHO TTHRC R-T 2D W/WOM-MODE COMPL SPEC&COLR D Fran Velazquez MD [address] [address] Phone: tel: fax: Referral IDStatusReasonStart DateExpiration DateVisits RequestedVisits [id number] Perform Procedure [facility] Work Phone: Summary Purpose Family History Relationship Condition Age at Onset Recorded Date/T morgan father Diabetes mellitus Unknown AlcoholismUnknown Advance Directives Advance Directive Response Recorded Date/ Time Advance Directives No October 8:34am Advance Directive Response Recorded Date/ Time Advance Directives No October 7:34am Advance Directive Response Recorded Date/ Time Advance Directives No July 30 2:22pm Advance Directive Response Recorded Date/ Time Advance Directives No July 30 1:22pm Reason for Referral Reason 03/16/22 arnulfo off ice Diagnosis 1 Pain in right wrist (M25.531) Referral Organization [facility] naveen Referring Provider First Name Alyssa Referring Provider Last Name Scout Referring Provider Specialty Family [facility] Referred Organization [facility] Referred Provider Sayra Foley Referred Address ,[place], [place],[address] Referred Provider Specialty Orthopedic S urgery Referral [...] >received fax with appt date and time KaitlinlakishaMelissa 03/17/2022 01:40:48 PM >faxed first request for consult notes Melissa Douglas 03/17/2022 04:56:02 PM >received fax back that office note is not locked yet Melissa Douglas 03/23/2022 04:08:46 PM >faxed second request for consult notes Melissa Douglas 03/27/2022 04:36:50 PM >waiting for notes to be locked Melissa Douglas 04/04/2022 12:17:29 PM >notes in chart and reviewed. closing referral at this time.SpecialtyDiagnoses / ProceduresReferred By ContactReferred To ContactRadiology Diagnoses Intracranial hypertension Procedures MR venous head w and wo IV contrast Naya Butler NP [address] [place] [address] [facility] Scheduling [address] [place] [address] Referral IDStatusReasonStart DateExpiration DateVisits RequestedVisits [id number] Review/ Chief Complaint and Reason for Visit Chief Complaint Admit Date Follow up November 17, 2024 1 1:31am Dizzy, Congestion December 09, 2024 1 :03pm Reason for Visit Admit Date Dizziness November 17, 2024 1 1:31am Intracranial hypertension November 17, 2024 11:31am Obesity November 17, 2024 1 1:31am Chief Complaint Wellness return to work Vertigo K/C/B Vertigo vertigo - fmlaReason for VisitAcute middle ear effusion Vertigo Vertigo Chief Complaint Wellness return to work Vertigo vertigo - fmla K/C/B Vertigo return to work discussionReason for VisitAcute middle ear effusion Vertigo Vertigo Acute middle ear effusion Vertigo Chief Complaint return to work Vertigo vertigo - fmla K/C/B Vertigo return to work discussion Amb Documentation FMLA paperworkReason for VisitAcute middle ear effusion Vertigo Vertigo Acute middle ear effusion Vertigo Vertigo Dizziness of unknown etiology Chief Complaint K/C/B Vertigo return to work discussion Amb Documentation FMLA paperworkReason for VisitVertigo Dizziness of unknown etiology Chief Complaint K/C/B Vertigo return to work discussion Amb Documentation FMLA paperwork r27.0Reason for VisitVertigo Dizziness of unknown etiology Bronchitis Chief Complaint K/C/B Vertigo return to work discussion Amb Documentation FMLA paperwork r27.0 HFMReason for VisitVertigo Dizziness of unknown etiology Bronchitis Chief Complaint Amb Documentation FMLA paperwork r27.0 HFM dizzy , anxiety discuss fmlaReason for VisitDizziness of unknown etiology Bronchitis Headache Intracranial hypertension Chief Complaint FMLA paperwork r27.0 HFM dizzy , anxiety discuss fmla headachesReason for VisitDizziness of unknown etiology Bronchitis Headache Intracranial hypertension Anxiety Headache Intracranial hypertension Chief Complaint r27.0 HFM dizzy , anxiety discuss fmla headaches discuss some thingsReason for VisitBronchitis Headache Intracranial hypertension Anxiety Headache Intracranial hypertension Intracranial hypertension Chief Complaint r27.0 HFM dizzy , anxiety discuss fmla headaches discuss some things FMLA paperworkReason for VisitBronchitis Headache Intracranial hypertension Anxiety Headache Intracranial hypertension Intracranial hypertension Headache Intracranial hypertension Chief Complaint r27.0 HFM dizzy , anxiety discuss fmla headaches discuss some things FMLA paperwork G93.2Reason for VisitHeadache Intracranial hypertension Anxiety Headache Intracranial hypertension Intracranial [...] Complaint Admit Date Sinus infection/dizziness February 13 2 025 11:20am work accommodations February 26, 2024 9 :58am FMLA-HIGH RISK March 06, 2024 9 :23am FMLA Paperwork-HIGH RISK March 27, 2024 9:23am FMLA/Sick-HIGH RISK May 01, 2024 2:4 7pm Reason for Visit Admit Date Intracranial hypertension February 13, 2 025 11:20am [...] 2024 11 :17am R06.02 R42 R00.2 R55 May 13th, 2025 8:45 am 3 month f/u July 30, 2024 1:03 pm HIGH RISK/fmla concerns August 04, 2024 1:42pm Reason for Visit Admit Date Abnormal thyroid blood test June 04, 2024 11:17am Dizziness July 30, 2024 1:03 pm Intracranial hypertension July 30 1:03pm Obesity July 30, 2024 1:03 pm Chief Complaint Admit Date Follow up November 17, 2024 1 1:31am Additional Source Comments INFORMATION SOURCE (unrecogn ized section and content) DATE CREATED AUTHOR 07/26/2017 [facility] DATE CREATED AUTHOR AUTHOR'S ORGANIZ ATION 02/24/2021 [facility] DATE CREATED AUTHOR AUTHOR'S ORGANIZ ATION 03/04/2022 [facility] DATE CREATED AUTHOR AUTHOR'S ORGANIZ ATION 08/21/2023 [facility] DATE CREATED AUTHOR AUTHOR'S ORGANIZ ATION 07/31/2024 [facility] DATE CREATED AUTHOR AUTHOR'S ORGANIZ ATION 08/23/2024 [facility] DATE CREATED AUTHOR AUTHOR'S ORGANIZ ATION 08/25/[address] [facility] DATE CREATED AUTHOR AUTHOR'S ORGANIZ ATION 12/12/2024 [facility] EPIC REASON FOR VISIT (unrecogniz ed section and content) ReasonCommentsDizzinessHeadacheReasonCommentsHeadacheReasonCommentsWell Women VisitReasonCommentsDizzinessHeadacheReasonOnset DateCommentsOphtho note 03/11/2024ReasonCommentsNew Patient VisitFor dizziness and pots testingSpecialty Diagnoses / ProceduresReferred By ContactReferred To Contact Diagnoses Encounter to establish care Procedures ECG 12 Lead Fran Velazquez MD [address] [address] Phone: tel: fax: Referral IDStatusReasonStart DateExpiration DateVisits RequestedVisits [id number]/10/20254/10/[id number] Problem SpecialtyDiagnoses / ProceduresReferred By ContactReferred To Contact Endocrinology Diagnoses Other specified abnormal findings of blood chemistry Procedures LA OFFICE/OUTPATIENT NEW LOW MDM 30 MINUTES Alyssa Butterfield MD [facility] Referrals ONLY fax: Seamus Grier MD [address] [place] [address] Phone: tel: fax: Referral IDStatusReasonStart DateExpiration DateVisits RequestedVisits [id number]/9/202511/[id number]-bbRzyy results SpecialtyDiagnoses / ProceduresReferred By ContactReferred To ContactCardiology Diagnoses Lightheadedness Procedures Follow Up In Cardiology Fran Velazquez MD [address] [place] [address] Phone: tel: fax: Fran Velazquez MD [address] [place] [address] Phone: tel: fax: Referral IDStatusReasonStart DateExpiration DateVisits RequestedVisits [id number]/10/20254/[id number]-zyUfqgbtu ProblemLAB/USReasonCommentsRash Care Teams (unrecognized sec tion and content) Team Status: Active Member Role Status Dates Alyssa Butterfield MD Primary Care Provider Active Team Status: Active Member Role Status Dates Alyssa Butterfield MD Primary Care Provider Active Start: May 17, 2024 Raiza Aranda ProviderActiveStart: May 17, 2024 Team Status: Inactive Member Role Status Dates Alyssa Butterfield MD Primary Care Provider Active Start: June 04, 2024 End: June 04, 2024Raiza Aranda ProviderActiveStart: June 04, 2024 End: June 04, 2024 Team Status: Inactive Member Role Status Dates Alyssa Butterfield MD Primary Care Provider Active Start: June 17, 2024 End: June 17, 2024Raiza Morris ProviderActiveStart: June 17, 2024 End: June 17, 2024Sushant Busch MDReferring ProviderActiveStart: June 17, 2024 End: June 17, 2024 Team Status: Inactive Member Role Status Enrique Butterfield MD Primary Care Provider Active Start: July 30, 2024 End: July 30, 2024Naya Butler APRN-FNP-CAttending ProviderActiveStart: July 30, 2024 End: July 30, 2024 Team Status: Inactive Member Role Status Enrique Butterfield MD Primary Care Provider Active Start: August 04, 2024 End: August 04, 2024Alyssa Butterfield MDAttgena ProviderActiveStart: August 04, 2024 End: August 04, 2024 [...] Active Start: August 15, 2023 End: August 14Roberta Boggs ProviderActiveStart: August 15, 2023 End: August 15, 2023 [...] Start: September 25, 2023 End: September 25, 2023Naya Butler APRN-FNP-CAttending ProviderActiveStart: September 25, 2023 End: September 25, 2023 Team Status: Active Member Role Status Enrique Butterfield MD Primary Care Provider Active Start: June 08, 2023 Anyi Jones RMAAttenyuli ProviderActiveStart: June 08, 2023 Team Status: Inactive Member [...] Start: November 09, 2023 End: November 09, 2023Naya Butler APRN-FNP-CAttending ProviderActiveStart: November 09, 2023 End: November 09, 2023Team MemberRelationshipSpecialtyStart DateEnd Date Alyssa Butterfield MD [address] [facility] [place] [address] PCP - GeneralFamily Medicine06/27/22Team MemberRelationshipSpecialtyStart DateEnd Date Alyssa Butterfield MD [address] [facility] [place] [address] PCP - GeneralFamily Medicine06/27/22Team MemberRelationshipSpecialtyStart DateEnd Date Alyssa Butterfield MD [address] [facility] [place] [address] PCP - GeneralFamily Medicine06/27/22Team MemberRelationshipSpecialtyStart DateEnd Date Alyssa Butterfield MD [address] [facility] [place] [address] PCP - GeneralFamily Medicine06/27/22Team MemberRelationshipSpecialtyStart DateEnd Date Alyssa Butterfield MD [address] [facility] [place] [address] PCP - GeneralFamily Medicine06/27/22Team MemberRelationshipSpecialtyStart DateEnd Date Alyssa Butterfield MD [address] [facility] [place] [address] PCP - GeneralFamily Medicine06/27/22Team MemberRelationshipSpecialtyStart DateEnd Date Alyssa Butterfield MD [address] [facility] [place] [address] PCP - GeneralFamily Medicine06/27/22Team MemberRelationshipSpecialtyStart DateEnd Date Alyssa Butterfield MD [address] [facility] [place] [address] PCP - GeneralFamily Medicine06/27/22Team MemberRelationshipSpecialtyStart DateEnd Date Alyssa Butterfield MD [address] [facility] [place] [address] PCP - GeneralFamily Medicine06/27/22Team MemberRelationshipSpecialtyStart DateEnd Date Alyssa Butterfield MD [address] [facility] [place] [address] PCP - GeneralFamily Medicine06/27/22Team MemberRelationshipSpecialtyStart DateEnd Date Alyssa Butterfield MD [address] [facility] [place] [address] PCP - GeneralFamily Medicine06/27/22 Amos Johnson DO [address] [place] [address], [place] [address] Referring PhysicianNeurology2/05/30Team MemberRelationshipSpecialtyStart DateEnd Date Alyssa Butterfield MD [address] [facility] [place] [address] PCP - GeneralFamily Medicine06/27/22 Amos Johnson DO [address] [place] [address], [place] [address] Referring PhysicianNeurology2/05/30Team MemberRelationshipSpecialtyStart DateEnd Date Alyssa Butterfield MD [address] [facility] [place] [address] PCP - GeneralFamily Medicine06/27/22 Amos Johnson DO [address] [place] [address] Referring PhysicianNeurology2/05/30Team MemberRelationshipSpecialtyStart DateEnd Date Alyssa Butterfield MD [address] [facility] [place] [address] PCP - GeneralFamily Medicine06/27/22 Amos Johnson DO [address] [place] [address] Referring PhysicianNeurology2/05/30Team MemberRelationshipSpecialtyStart DateEnd Date Alyssa Butterfield MD [address] [facility] [place] [address] PCP - GeneralFamily Medicine06/27/22 Amos Johnson DO [address] [place] [address] Referring PhysicianNeurology2 Team Status: Inactive Member Role Status Dates Alyssa Butterfield MD Primary Care Provide r, Attending Provider Active Start: May 01, 2024 End: May 01, 2024Team MemberRelationshipSpecialtyStart DateEnd Date Alyssa Butterfield MD [address] [place] [address] PCP - GeneralFamily Medicine05/15/24Team MemberRelationshipSpecialtyStart DateEnd Date Alyssa Butterfield MD [address] [place] [address] PCP - Generalmily Medicine05/15/24 Team Status: Active Member Role Status Dates Alyssa Butterfield MD Primary Care Provide r, Attending Provider Active Start: May 17, 2024 Team Status: Inactive Member Role Status Dates Alyssa Butterfield MD Primary Care Provide r, Attending Provider Active Start: June 04, 2024 End: June 04, 2024Team MemberRelationshipSpecialtyStart DateEnd Date Alyssa Butterfield MD PCP - GeneralFamily Medicine06/27/22 Amos Johnson DO [address] [place], [place] [id number] Referring PhysicianNeurology2Team MemberRelationshipSpecialtyStart DateEnd Date Alyssa Butterfield MD PCP - GeneralFamily Medicine06/27/22 Amos Johnson DO [address] [place], [place] [phone] Referring PhysicianNeurology2Team MemberRelationshipSpecialtyStart DateEnd Date Alyssa Butterfield MD [address] [place] [address] PCP - [facility] Medicine05/15/24 Team Status: Inactive Member Role Status Dates Alyssa Butterfield MD Primary Care Provider Active Start: May 01, 2024 End: May 01, 2024Raiza Aranda ProviderActiveStart: May 01, 2024 End: May 01, 2024Team MemberRelationshipSpecialtyStart DateEnd Date Alyssa Butterfield MD [address] [place] [address] PCP - [facility] Medicine05/15/24Team MemberRelationshipSpecialtyStart DateEnd Date Alyss[facility] Amos Johnson DO [address] [place], [place] [phone] Referring PhysicianNeurolog03/11/24Team MemberRelationshipSpecialtyStart DateEnd Date Alyssa Butterfield MD PCP - [facility] Medicine06/27/22 Amos Johnson DO [address] [place] [address] Referring PhysicianNeurolog03/11/24 Team Status: Active Member Role Status Dates Alyssa Butterfield MD Primary Care Provider Active Start: November 10, 2024 Raiza Wallace ProviderActiveStart: November 10, 2024 Team Status: Inactive Member Role Status Dates Alyssa Butterfield MD Primary Care Provider Active Start: November 17, 2024 End: November 17, 2024Naya Butler , [id number]-SPD-QGzhoesnep ProviderActive Start: November 17, 2024 End: November 17, 2024 Team Status: Active Member Role/Relationship Status Dates Alyssa Butterfield MD Primary Care Provider Active Team Status: Active Member Role/Relationship Status Dates Alyssa Butterfield MD Primary Care Provider Active Start: November 10, 2024 Steffen Wallaceending ProviderActiveStart: November 10, 2024 Team Status: Inactive Member Role/Relationship Status Dates Alyssa Butterfield MD Primary Care Provider Active Start: November 17, 2024 End: November 17, 2024Naya Butler , [id number]-[id number] ProviderActive Start: November 17, 2024 End: November 17, 2024 Team Status: Inactive Member Role/Relationship Status Dates Alyssa Butterfield MD Primary Care Provider Active Start: December 09, 2024 End: December 09, 2024Raiza Aranda ProviderActiveStart: December 09, 2024 End: December 09, 2024Team MemberRelationshipSpecialtyStart DateEnd Date Alyssa Butterfield MD [address] [place] [address] PCP - GeneralFamily Medicine06/27/22 Amos Johnson DO [address] [address] Referring PhysicianNeurology2Team MemberRelationshipSpecialtyStart DateEnd Date Alyssa Butterfield MD [address] [place] [address] PCP - GeneralFamily Medicine06/27/22 Amos Johnson DO [address] [address] Referring PhysicianNeurology2Team MemberRelationshipSpecialtyStart DateEnd Date Alyssa Butterfield MD [address] [place] [address] PCP - GeneralFamily Medicine06/27/22 Amos Johnson DO [address] [place], [place] [phone] Referring PhysicianNeurolog03/11/24 Goals (unrecognized section and content) Goals may [...] BE BASED ON THE PRIMARY CLINICAL RECORDS. [facility]. provides no warranty or guarantee of the accuracy or completeness of information in this document.
--- OUTSIDE RECORDS SUMMARY | 2024-12-20 11:03 | XMS_ITS | Clinical Summary ---
Author Organization [facility] Address [address] [place] [address] Care Team Providers Care Catapult And Arresting Gear Officer Name Role Phone Yuriy Le Unavailable Edie Abreu MD Primary Care Provider [phone] Allergies No known active allergies Medications MedicationSigDispense QuantityRefillsLast FilledStart DateEnd DateStatus fluticasone (FLONASE) 50 mcg/actuation nasal spray Use 1 [place] in the nose as needed. Active sertraline (ZOLOFT) 50 mg tablet Take 50 mg by mouth once daily.Active fexofenadine ER (LUISA ALLERGY) 180 mg tablet Take 180 mg by mouth as needed. Active vit/iron fum/folic ac ( 1 + 1 ORAL) Take 1 tablet by mouth once daily. Active medroxyPROGESTERone (PROVERA) 10 mg tablet Take 1 tablet by mouth once daily for 10 days. 10 tablet 09/13/2020ctive metFORMIN ER (GLUCOPHAGE XR) 500 mg 24 hr tablet Indications:PCOS (polycystic ovarian syndrome)TAKE 1 TABLET BY MOUTH TWICE DAILY WITH MEALS 120 tablet 2Active Social History Tobacco UseTypesPacks/DayYears UsedDateSmoking Tobacco: NeverSmokeless Tobacco: NeverAlcohol UseStandard Drinks/WeekCommentsYes0 (1 standard drink = 0.6 oz pure alcohol)sociallyArea Deprivation IndexAnswerDate RecordedNational Score (1-100), lower number is lower riskNot on file01/15/2020State Score (1-10), lower number is lower riskNot on file01/15/2020Data from: https://www.neighborhoodatlas.medicine.[facility].edu/. Last address used for calculationNot on file01/15/2020CommentsNoSex and Gender Information ValueDate RecordedSex Assigned at SkeacCydkyy46/30/2021 12:05 AM EDTLegal Sex Nrmvph5402/20/2019 8:39 AM ESTGender ImxdhkxbCrmarg43/30/2021 12:05 AM EDTSexual TimdqyfpdrpFhbvctdy88/30/2021 12:05 AM EDT Last Filed Vital Signs Vital SignReadingTime TakenCommentsBlood Stlnobnl622/6404 8:27 AM EDT Acxvr0450 8:27 AM EDTTemperature--Respiratory Rate--Oxygen Saturation-- Inhaled Oxygen Concentration--Gluurp127.6 kg (230 lb 8 oz)05/06/2020 8:27 AM EDT Djrnat586.6 cm (5' 6 )05/06/2020 8:27 AM EDTBody Mass Index37.204 8:27 AM EDT Plan of Treatment Health MaintenanceDue DateLast DoneCommentsAnxiety Orizaowkx94/23/2007Depression Xtzipkgii04/23/2007HIV Xsrxpthcq46/23/2007Hepatitis C Wojnvjtbo00/23/2007 Hepatitis B Vaccine (1 of 3 - 19+ 3-dose series)02/27/2007HPV Vaccine (1 - 3- dose SCDM series)02/27/2015Cervical Cancer Hqejszdjd51Covid-19 Vaccine (3 - season)/12/2020, 02/19/2020Influenza Vaccine (#1), 10/29/2018, 11/09/2017, Additional history exists DTaP,Tdap,Td Vaccine (2 - Td or Tdap) Insurance Care Teams Team MemberRelationshipSpecialtyStart DateEnd Date Edie Abreu MD [address] [place] [address] PCP - GeneralFamily Namfuwag53/16/20 Yuriy Le [address] [place] [address] ReferringOb/Gyn02/20/19
[2024-12-21 08:09] LABS: HSV 1 IgG, Type Spec Reactive (Non Reactive); HSV 2 IgG, Type Spec Non Reactive (Non Reactive)
[2024-12-23 11:09] LABS: Rapid Plasma Reagin, Quant Non Reactive titer (NonRea<1:1)
== END 2024-12-20 11:01 | disposition home or self-care (01) ==
LOC: LAB 11:00
PROVIDERS: PCP Family Medicine; Visit Provider Obstetrics & Gynecology
DX: Z20.2 Contact with and (suspected) exposure to infections with a predominantly sexual mode of transmission (principal)
CPT/HCPCS: 36415; 86592; 86695; 86696; 87340; 87389